=== PATIENT | female | born 1960 | race American Indian/Alaskan Native ===

== ENCOUNTER 2020-06-22 19:07 | Emergency (ER) | payer SELFPAY ==
[2020-06-22 19:48] VITALS: BP 123/79
--- NOTE | 2020-06-22 19:55 | Emergency Department Report ---
ED ENT HPI - General Stated complaint: FACE SWOLLEN Time Seen by Provider: 06/22/20 19:46 - History of Present Illness Initial comments: This is a 59-year-old female nontoxic well in appearance with no signs of distress presents to the ED with complaint of toothache. Patient denies any facial swelling. Denies following up with a dentist. Denies any fever, chills, headache, nausea, vomiting, chest pain or SOB. Denies any other complaints. Denies any allergies. MD complaint: tooth pain -: days(s) Location: tooth # Severity: mild Severity scale (0 -10): 8 Quality: aching Consistency: constant Improves with: none Worsens with: none Context- Dental: history of dental caries, poor dental care Associated Symptoms: gum swelling, toothache. denies: fever, cough, pain with swallowing, sore throat, tinnitus, hearing loss, discharge from ear, rhinorrhea - Related Data Previous Rx's Medication Instructions Recorded Last Taken Type amLODIPine [Norvasc] 5 mg PO DAILY #30 tab 05/23/16 Unknown Rx Chlorhexidine Mouthwash [Peridex] 15 ml MM BID #1 bottle 06/22/20 Unknown Rx Clindamycin [Clindamycin CAP] 300 mg PO Q8H #21 cap 06/22/20 Unknown Rx Allergies Allergy/AdvReac Type Severity Reaction Status Date / Time No Known Allergies Allergy Verified 05/22/16 22:45 ED Dental HPI - General Stated complaint: FACE SWOLLEN Time Seen by Provider: 06/22/20 19:46 - Related Data Previous Rx's Medication Instructions Recorded Last Taken Type amLODIPine [Norvasc] 5 mg PO DAILY #30 tab 05/23/16 Unknown Rx Chlorhexidine Mouthwash [Peridex] 15 ml MM BID #1 bottle 06/22/20 Unknown Rx Clindamycin [Clindamycin CAP] 300 mg PO Q8H #21 cap 06/22/20 Unknown Rx Allergies Allergy/AdvReac Type Severity Reaction Status Date / Time No Known Allergies Allergy Verified 05/22/16 22:45 ED Review of Systems ROS: Stated complaint: FACE SWOLLEN Other details as noted in HPI Comment: All other systems reviewed and negative Constitutional: denies: chills, fever Eyes: denies: eye pain, eye discharge, vision change ENT: dental pain. denies: ear pain, throat pain Respiratory: denies: cough, shortness of breath, wheezing Cardiovascular: denies: chest pain, palpitations Endocrine: no symptoms reported Gastrointestinal: denies: abdominal pain, nausea, diarrhea Genitourinary: denies: urgency, dysuria, discharge Musculoskeletal: denies: back pain, joint swelling, arthralgia Skin: denies: rash, lesions Neurological: denies: headache, weakness, paresthesias Psychiatric: denies: anxiety, depression Hematological/Lymphatic: denies: easy bleeding, easy bruising ED Past Medical Hx - Past Medical History Hx Hypertension: Yes - Social History Smoking Status: Smoker, Current Status Unknown Substance Use Type: Alcohol - Medications Home Medications: Home Medications Medication Instructions Recorded Confirmed Last Taken Type amLODIPine [Norvasc] 5 mg PO DAILY #30 tab 05/23/16 Unknown Rx Chlorhexidine Mouthwash [Peridex] 15 ml MM BID #1 bottle 06/22/20 Unknown Rx Clindamycin [Clindamycin CAP] 300 mg PO Q8H #21 cap 06/22/20 Unknown Rx ED Physical Exam - General General appearance: alert, in no apparent distress - Head Head exam: Present: atraumatic, normocephalic - Eye Eye exam: Present: normal appearance - Expanded ENT Exam Expanded Ear exam: Present: normal external inspection Mouth exam: Present: normal external inspection, tongue normal. Absent: drooling, trismus, muffled voice Teeth exam: Present: dental caries, fractured tooth #, dental tenderness #, gingival enlargement, other (no facial swelling. no abscess) Throat exam: Positive: normal inspection, other (uvula midline). Negative: tonsillar erythema, tonsillomegaly, tonsillar exudate, R peritonsillar mass, L peritonsillar mass - Neck Neck exam: Present: normal inspection, full ROM. Absent: tenderness, meningismus, lymphadenopathy - Respiratory Respiratory exam: Absent: respiratory distress - Extremities Exam Extremities exam: Present: full ROM - Back Exam Back exam: Present: full ROM - Neurological Exam Neurological exam: Present: alert, oriented X3, normal gait - Psychiatric Psychiatric exam: Present: normal affect, normal mood - Skin Skin exam: Present: warm, dry, intact, normal color. Absent: rash ED Course Vital Signs 06/22/20 19:45 Temperature 98.9 F Pulse Rate 99 H Respiratory 16 Rate Blood Pressure 123/79 O2 Sat by Pulse 98 Oximetry - Reevaluation(s) Reevaluation #1: 06/22/20 19:55 Patient is speaking in full sentences with no signs of distress noted. ED Medical Decision Making - Medical Decision Making Patient was instructed to Follow-up with a dentist doctor in 3-5 days or if symptoms worsen and continue return to emergency room as soon as possible. At time of discharge, the patient does not seem toxic or ill in appearance. No acute signs of distress noted. Patient agrees to discharge treatment plan of care. No further questions noted by the patient. Critical care attestation.: If time is entered above; I have spent that time in minutes in the direct care of this critically ill patient, excluding procedure time. ED Disposition Clinical Impression: Dental caries, Gingivitis Disposition: TO HOME OR SELFCARE Is pt being admited?: No Does the pt Need Aspirin: No Condition: Stable Instructions: Dental Caries (ED), Gingivitis (ED) Additional Instructions: Follow-up with a dentist doctor in 3-5 days or if symptoms worsen and continue return to emergency room as soon as possible. Prescriptions: Clindamycin [Clindamycin CAP] 300 mg PO Q8H #21 cap Chlorhexidine Mouthwash [Peridex] 15 ml MM BID #1 bottle Referrals: PRIMARY CAREMD [Referring] - 3-5 Days EZ ROTIZ MD [Staff Physician] - 3-5 Days [facility] [Outside] - 3-5 Days
== END 2020-06-22 20:52 | disposition home or self-care (01) ==
LOC: ED 19:07
DX: K02.9 Dental caries, unspecified (principal); K05.10 Chronic gingivitis, plaque induced; Z79.899 Other long term (current) drug therapy; I10 Essential (primary) hypertension
CPT/HCPCS: 99282

== ENCOUNTER 2021-06-09 03:02 | Inpatient (IN) | payer OTHER ==
[2021-06-09] MEDS ORDERED: NORepinephrine/NS 4 MG-250 ML 4 MG/250 ML BAG IV ONE (03:09)
[2021-06-09] MEDS ORDERED: DEXTROSE 50% IN WATER (25GM) 50 ML SYRINGE IV ONE ×3 (03:15→05:26)
[2021-06-09] MEDS ORDERED: SODIUM CHLORIDE 0.9% 1000 ML 1,000 ML IV ONE (03:25)
--- NOTE | 2021-06-09 03:25 | Emergency Department Report ---
ED CPR HPI - General Chief Complaint: Cardiac Arrest/CPR Stated Complaint: CARDIC ARREST Time Seen by Provider: 06/09/21 03:02 Source: EMS Mode of arrival: Stretcher Limitations: Altered Mental Status, Physical Limitation - History of Present Illness Initial Comments: Patient is a 60-year-old female who presents emergency room for cardiac arrest. Patient brought in by EMS. Report received from EMS. Patient found at home, unresponsive and no pulse and no respirations. CPR was initiated by EMS. EMS providing oxygen via BVM. Patient received 1 round of calcium chloride epi and 1 bicarb. EMS did not check the blood sugar. EMS states that the patient's family reported that she was complaining of abdominal pain. Patient has received the Covid vaccine 3 weeks ago. Complaint: found unresponsive Place: home Bystander CPR Performed: No AED Applied by Bystander/Tele Marketing Executive: No Shock Advised: No Initial Findings in the Field: unresponsive, no respirations, no pulse ROSC in the Field: No Associated Injuries: No Associated Symptoms: abdominal pain Treatments Prior to Arrival: BMV, chest compressions, epinephrine mgs #, sodium bicarbonate, calcium - Related Data Home Medications Medication Instructions Recorded Confirmed Last Taken No Known Home Medications [No 06/09/21 06/09/21 Unknown Reported Home Medications] Allergies Allergy/AdvReac Type Severity Reaction Status Date / Time No Known Allergies Allergy Verified 05/22/16 22:45 ED Review of Systems ROS: Stated complaint: CARDIC ARREST Other details as noted in HPI Comment: Unobtainable due to pts medical conditions ED Past Medical Hx - Past Medical History Previous Medical History?: Yes Hx Hypertension: Yes - Surgical History Past Surgical History?: No - Family History Family history: no significant - Social History Smoking Status: Smoker, Current Status Unknown Substance Use Type: Alcohol - Medications Home Medications: Home Medications Medication Instructions Recorded Confirmed Last Taken Type No Known Home Medications [No 06/09/21 06/09/21 Unknown History Reported Home Medications] ED Physical Exam - General Limitations: Altered Mental Status, Physical Limitation General appearance: obtunded - Head Head exam: Present: atraumatic, normocephalic - Eye Eye exam: Present: other (Pupils fixed and dilated) - ENT ENT exam: Present: mucous membranes dry - Neck Neck exam: Present: normal inspection - Cardiovascular Cardiovascular Exam: Present: regular rate, normal rhythm. Absent: systolic murmur, diastolic murmur, rubs, gallop - GI/Abdominal GI/Abdominal exam: Present: soft, normal bowel sounds - Extremities Exam Extremities exam: Present: normal inspection - Back Exam Back exam: Present: normal inspection - Neurological Exam Neurological exam: Present: alert, oriented X3 - Psychiatric Psychiatric exam: Present: normal affect, normal mood - Skin Skin exam: Present: warm, dry, intact, normal color. Absent: rash ED Course Vital Signs 06/09/21 06/09/21 06/09/21 03:32 05:56 06:20 Temperature 90.8 F L 88.9 F L Pulse Rate 99 H 90 92 H Respiratory 20 23 Rate Blood Pressure 82/53 96/30 92/37 Blood Pressure 140/103 [Right] O2 Sat by Pulse 100 100 100 Oximetry 06/09/21 06/09/21 06/09/21 07:10 07:57 09:00 Temperature Pulse Rate 93 H Respiratory 22 22 Rate Blood Pressure 111/67 Blood Pressure [Right] O2 Sat by Pulse 100 100 Oximetry 06/09/21 06/09/21 06/09/21 09:11 09:39 09:51 Temperature 89.7 F L Pulse Rate 97 H 94 H Respiratory 22 23 22 Rate Blood Pressure Blood Pressure 90/52 98/52 [Right] O2 Sat by Pulse 100 100 Oximetry 06/09/21 06/09/21 06/09/21 10:00 10:01 10:15 Temperature Pulse Rate 94 H 96 H Respiratory 22 22 25 H Rate Blood Pressure 99/51 Blood Pressure [Right] O2 Sat by Pulse 100 100 Oximetry 06/09/21 06/09/21 06/09/21 10:31 10:45 11:01 Temperature Pulse Rate 97 H 98 H 99 H Respiratory 24 27 H 28 H Rate Blood Pressure 107/56 116/62 110/67 Blood Pressure [Right] O2 Sat by Pulse 100 100 100 Oximetry 06/09/21 06/09/21 06/09/21 11:15 11:31 11:40 Temperature Pulse Rate 99 H 99 H Respiratory 25 H 28 H 22 Rate Blood Pressure 104/66 112/73 Blood Pressure [Right] O2 Sat by Pulse 100 100 Oximetry 06/09/21 06/09/21 06/09/21 11:41 11:51 12:00 Temperature Pulse Rate 100 H 98 H 89 Respiratory 30 H 30 H Rate Blood Pressure 105/66 97/60 Blood Pressure [Right] O2 Sat by Pulse 100 100 100 Oximetry 06/09/21 06/09/21 06/09/21 12:01 12:11 12:20 Temperature Pulse Rate 99 H 99 H 99 H Respiratory 29 H 31 H 31 H Rate Blood Pressure 97/60 105/66 104/64 Blood Pressure [Right] O2 Sat by Pulse 100 100 100 Oximetry 06/09/21 06/09/21 06/09/21 12:31 12:41 13:01 Temperature Pulse Rate 98 H 98 H 90 Respiratory 28 H 26 H 26 H Rate Blood Pressure 132/86 104/64 140/117 Blood Pressure [Right] O2 Sat by Pulse 100 100 100 Oximetry 06/09/21 06/09/21 06/09/21 13:15 13:21 13:31 Temperature Pulse Rate 87 87 88 Respiratory 29 H 26 H 18 Rate Blood Pressure 71/45 83/54 83/54 Blood Pressure [Right] O2 Sat by Pulse 100 100 Oximetry 06/09/21 06/09/21 06/09/21 13:41 13:51 14:01 Temperature Pulse Rate 89 91 H 93 H Respiratory 19 31 H 27 H Rate Blood Pressure 98/63 98/63 165/90 Blood Pressure [Right] O2 Sat by Pulse 100 100 100 Oximetry 06/09/21 06/09/21 06/09/21 14:11 14:21 14:31 Temperature Pulse Rate 95 H 96 H 96 H Respiratory 25 H 22 22 Rate Blood Pressure 186/109 168/106 168/106 Blood Pressure [Right] O2 Sat by Pulse 100 100 100 Oximetry 06/09/21 06/09/21 06/09/21 14:41 14:51 15:01 Temperature Pulse Rate 97 H 98 H 98 H Respiratory 19 26 H 24 Rate Blood Pressure 165/90 132/92 132/92 Blood Pressure [Right] O2 Sat by Pulse 100 100 100 Oximetry 06/09/21 06/09/21 06/09/21 15:11 15:21 15:31 Temperature Pulse Rate 98 H 98 H 98 H Respiratory 18 12 18 Rate Blood Pressure 117/94 137/98 137/98 Blood Pressure [Right] O2 Sat by Pulse 100 100 100 Oximetry 06/09/21 06/09/21 06/09/21 15:35 15:41 15:51 Temperature 89.7 F L Pulse Rate 98 H 98 H 98 H Respiratory 22 20 14 Rate Blood Pressure 131/89 145/92 138/84 Blood Pressure [Right] O2 Sat by Pulse 100 100 100 Oximetry 06/09/21 06/09/21 06/09/21 16:01 16:11 16:21 Temperature Pulse Rate 97 H 99 H 97 H Respiratory 13 23 16 Rate Blood Pressure 138/84 126/88 121/83 Blood Pressure [Right] O2 Sat by Pulse 100 100 100 Oximetry 06/09/21 06/09/21 06/09/21 16:31 16:32 16:41 Temperature Pulse Rate 97 H 97 H 97 H Respiratory 22 22 Rate Blood Pressure 121/83 121/83 111/81 Blood Pressure [Right] O2 Sat by Pulse 100 100 100 Oximetry 06/09/21 06/09/21 06/09/21 16:51 17:01 17:11 Temperature Pulse Rate 98 H 98 H 96 H Respiratory 10 L 14 9 L Rate Blood Pressure 115/79 115/79 119/91 Blood Pressure [Right] O2 Sat by Pulse 100 100 Oximetry 06/09/21 06/09/21 06/09/21 17:31 17:45 18:01 Temperature Pulse Rate 95 H 94 H 94 H Respiratory 22 19 12 Rate Blood Pressure 124/88 120/83 115/85 Blood Pressure [Right] O2 Sat by Pulse 100 100 100 Oximetry 06/09/21 06/09/21 06/09/21 18:15 18:31 18:45 Temperature Pulse Rate 95 H 91 H 90 Respiratory 13 21 21 Rate Blood Pressure 125/89 121/80 121/83 Blood Pressure [Right] O2 Sat by Pulse 100 100 100 Oximetry 06/09/21 06/09/21 06/09/21 19:01 19:15 19:16 Temperature Pulse Rate 91 H 90 91 H Respiratory 22 23 Rate Blood Pressure 130/94 135/89 135/89 Blood Pressure [Right] O2 Sat by Pulse 100 100 100 Oximetry 06/09/21 06/09/21 06/09/21 19:31 19:45 20:01 Temperature Pulse Rate 91 H 91 H 89 Respiratory 14 18 21 Rate Blood Pressure 133/90 144/96 131/95 Blood Pressure [Right] O2 Sat by Pulse 100 100 100 Oximetry 06/09/21 06/09/21 06/09/21 20:15 20:31 20:45 Temperature Pulse Rate 87 87 87 Respiratory 22 22 22 Rate Blood Pressure 123/93 123/85 125/88 Blood Pressure [Right] O2 Sat by Pulse 100 100 100 Oximetry 06/09/21 06/09/21 06/09/21 21:01 21:03 21:15 Temperature Pulse Rate 88 88 90 Respiratory 22 22 12 Rate Blood Pressure 132/89 132/89 137/87 Blood Pressure [Right] O2 Sat by Pulse 100 100 100 Oximetry 06/09/21 06/09/21 06/09/21 21:31 21:45 22:00 Temperature Pulse Rate 92 H 85 Respiratory 12 20 Rate Blood Pressure 127/92 183/142 Blood Pressure [Right] O2 Sat by Pulse 100 100 100 Oximetry 06/09/21 06/09/21 06/09/21 22:01 22:15 22:31 Temperature Pulse Rate 86 89 91 H Respiratory 22 19 22 Rate Blood Pressure 173/115 173/115 151/109 Blood Pressure [Right] O2 Sat by Pulse 100 100 100 Oximetry 06/09/21 06/09/21 06/09/21 22:45 23:01 23:15 Temperature Pulse Rate 91 H 92 H 91 H Respiratory 22 22 22 Rate Blood Pressure 151/109 140/100 140/100 Blood Pressure [Right] O2 Sat by Pulse 100 100 100 Oximetry 06/09/21 06/09/21 06/09/21 23:31 23:44 23:45 Temperature Pulse Rate 90 91 H 92 H Respiratory 22 22 Rate Blood Pressure 140/100 107/74 140/100 Blood Pressure [Right] O2 Sat by Pulse 100 100 100 Oximetry 06/10/21 06/10/21 06/10/21 00:00 00:01 00:15 Temperature Pulse Rate 91 H 91 H Respiratory 22 22 22 Rate Blood Pressure 100/70 100/70 Blood Pressure [Right] O2 Sat by Pulse 100 100 100 Oximetry 06/10/21 06/10/21 06/10/21 00:31 00:45 01:01 Temperature Pulse Rate 91 H 89 82 Respiratory 22 22 22 Rate Blood Pressure 96/69 96/69 101/78 Blood Pressure [Right] O2 Sat by Pulse 100 100 100 Oximetry 06/10/21 06/10/21 06/10/21 01:15 01:31 01:41 Temperature Pulse Rate 84 83 97 H Respiratory 20 19 Rate Blood Pressure 101/78 90/47 103/69 Blood Pressure [Right] O2 Sat by Pulse 100 100 100 Oximetry 06/10/21 06/10/21 06/10/21 01:45 02:00 02:01 Temperature Pulse Rate 85 89 Respiratory 13 22 12 Rate Blood Pressure 90/47 101/78 Blood Pressure [Right] O2 Sat by Pulse 100 100 100 Oximetry 06/10/21 06/10/21 06/10/21 02:16 02:31 02:45 Temperature Pulse Rate 91 H 83 80 Respiratory 16 20 20 Rate Blood Pressure 155/105 158/108 137/85 Blood Pressure [Right] O2 Sat by Pulse 100 100 100 Oximetry 06/10/21 06/10/21 06/10/21 03:01 03:15 03:31 Temperature Pulse Rate 79 81 85 Respiratory 22 22 22 Rate Blood Pressure 155/105 132/85 123/83 Blood Pressure [Right] O2 Sat by Pulse 100 100 100 Oximetry 06/10/21 06/10/21 06/10/21 03:32 03:45 04:00 Temperature Pulse Rate 81 83 Respiratory 22 22 Rate Blood Pressure 132/85 133/92 Blood Pressure [Right] O2 Sat by Pulse 100 100 100 Oximetry 06/10/21 06/10/21 06/10/21 04:01 04:15 04:31 Temperature Pulse Rate 84 86 85 Respiratory 22 22 22 Rate Blood Pressure 132/85 138/95 148/94 Blood Pressure [Right] O2 Sat by Pulse 100 100 100 Oximetry 06/10/21 06/10/21 06/10/21 04:45 05:00 05:15 Temperature Pulse Rate 89 88 94 H Respiratory 22 23 22 Rate Blood Pressure 139/97 140/92 126/87 Blood Pressure [Right] O2 Sat by Pulse 100 100 100 Oximetry 06/10/21 06/10/21 06/10/21 05:31 05:45 06:01 Temperature Pulse Rate 98 H 102 H 104 H Respiratory 22 22 22 Rate Blood Pressure 125/84 118/81 128/82 Blood Pressure [Right] O2 Sat by Pulse 100 100 100 Oximetry 06/10/21 06/10/21 06/10/21 06:15 06:31 06:45 Temperature Pulse Rate 106 H 107 H 109 H Respiratory 22 22 22 Rate Blood Pressure 121/83 127/92 130/83 Blood Pressure [Right] O2 Sat by Pulse 100 100 100 Oximetry 06/10/21 06/10/21 06/10/21 07:01 07:15 07:31 Temperature 99.6 F Pulse Rate 110 H 111 H 114 H Respiratory 22 22 22 Rate Blood Pressure 126/87 136/88 136/84 Blood Pressure [Right] O2 Sat by Pulse 100 100 100 Oximetry 06/10/21 06/10/21 06/10/21 07:45 08:01 08:15 Temperature Pulse Rate 116 H 116 H 118 H Respiratory 22 22 22 Rate Blood Pressure 130/86 122/86 123/84 Blood Pressure [Right] O2 Sat by Pulse 100 100 100 Oximetry 06/10/21 06/10/21 06/10/21 08:31 08:45 09:01 Temperature Pulse Rate 118 H 118 H 117 H Respiratory 22 22 22 Rate Blood Pressure 128/84 126/85 128/90 Blood Pressure [Right] O2 Sat by Pulse 100 100 100 Oximetry 06/10/21 06/10/21 06/10/21 09:15 09:20 09:25 Temperature 102.2 F H Pulse Rate 119 H 91 H Respiratory 22 Rate Blood Pressure 120/84 118/82 Blood Pressure [Right] O2 Sat by Pulse 100 99 Oximetry 06/10/21 06/10/21 06/10/21 09:31 09:45 09:49 Temperature Pulse Rate 119 H 115 H 111 H Respiratory 23 22 22 Rate Blood Pressure 106/74 115/74 115/74 Blood Pressure [Right] O2 Sat by Pulse 100 100 100 Oximetry 06/10/21 06/10/21 06/10/21 10:01 10:15 10:31 Temperature 96.7 F L Pulse Rate 107 H 118 H 107 H Respiratory 22 24 22 Rate Blood Pressure 115/78 134/98 88/57 Blood Pressure [Right] O2 Sat by Pulse 100 100 100 Oximetry 06/10/21 06/10/21 06/10/21 10:45 11:01 11:15 Temperature Pulse Rate 102 H 95 H 93 H Respiratory 22 22 24 Rate Blood Pressure 106/69 103/76 118/82 Blood Pressure [Right] O2 Sat by Pulse 100 100 100 Oximetry 06/10/21 06/10/21 06/10/21 11:30 11:45 12:00 Temperature Pulse Rate 88 87 81 Respiratory 22 22 19 Rate Blood Pressure 119/82 103/76 106/78 Blood Pressure [Right] O2 Sat by Pulse 100 100 100 Oximetry 06/10/21 06/10/2106/10/21 12:15 12:30 12:45 Temperature Pulse Rate 78 78 80 Respiratory 22 22 22 Rate Blood Pressure 101/72 100/70 102/73 Blood Pressure [Right] O2 Sat by Pulse 100 99 100 Oximetry 06/10/21 06/10/21 06/10/21 13:00 13:15 13:30 Temperature Pulse Rate 83 87 90 Respiratory 21 22 22 Rate Blood Pressure 103/75 113/77 110/77 Blood Pressure [Right] O2 Sat by Pulse 99 100 Oximetry 06/10/21 06/10/21 06/10/21 13:45 14:00 14:15 Temperature Pulse Rate 78 89 85 Respiratory 36 H 30 H 20 Rate Blood Pressure 107/76 104/73 115/76 Blood Pressure [Right] O2 Sat by Pulse 99 100 Oximetry 06/10/21 06/10/21 06/10/21 14:30 14:45 14:50 Temperature Pulse Rate 80 77 67 Respiratory 15 9 L Rate Blood Pressure 111/77 119/76 107/75 Blood Pressure [Right] O2 Sat by Pulse 100 100 Oximetry 06/10/21 06/10/21 06/10/21 15:00 15:15 15:31 Temperature Pulse Rate 77 79 78 Respiratory 23 22 22 Rate Blood Pressure 102/68 109/74 106/75 Blood Pressure [Right] O2 Sat by Pulse 99 100 100 Oximetry 06/10/21 06/10/21 06/10/21 15:33 15:45 16:00 Temperature 90.8 F L Pulse Rate 81 80 Respiratory 22 22 Rate Blood Pressure 107/75 102/71 Blood Pressure [Right] O2 Sat by Pulse 100 Oximetry 06/10/21 06/10/21 06/10/21 16:15 16:30 16:45 Temperature Pulse Rate 79 74 70 Respiratory 22 22 21 Rate Blood Pressure 105/73 93/69 101/69 Blood Pressure [Right] O2 Sat by Pulse 100 100 Oximetry 06/10/21 06/10/21 06/10/21 17:00 17:15 17:30 Temperature Pulse Rate 68 69 73 Respiratory 22 22 22 Rate Blood Pressure 92/65 87/63 92/68 Blood Pressure [Right] O2 Sat by Pulse 100 100 98 Oximetry 06/10/21 06/10/21 06/10/21 17:45 18:00 18:15 Temperature Pulse Rate 77 78 73 Respiratory 22 22 22 Rate Blood Pressure 94/67 105/78 98/70 Blood Pressure [Right] O2 Sat by Pulse 100 100 Oximetry 06/10/21 06/10/21 06/10/21 18:30 18:45 18:50 Temperature Pulse Rate 69 69 67 Respiratory 22 22 Rate Blood Pressure 97/69 100/76 107/75 Blood Pressure [Right] O2 Sat by Pulse 100 100 99 Oximetry 06/10/21 06/10/21 06/10/21 19:00 19:14 19:15 Temperature 90.3 F L Pulse Rate 68 70 Respiratory 22 22 Rate Blood Pressure 95/71 99/71 Blood Pressure [Right] O2 Sat by Pulse 100 100 Oximetry 06/10/21 06/10/21 06/10/21 19:30 19:45 19:46 Temperature Pulse Rate 74 78 76 Respiratory 19 22 Rate Blood Pressure 108/75 110/79 110/79 Blood Pressure [Right] O2 Sat by Pulse 98 100 100 Oximetry 06/10/21 06/10/21 06/10/21 20:00 20:15 20:30 Temperature Pulse Rate 78 74 71 Respiratory 20 22 22 Rate Blood Pressure 110/80 100/76 110/76 Blood Pressure [Right] O2 Sat by Pulse 99 100 100 Oximetry 06/10/21 06/10/21 06/10/21 20:45 21:00 21:15 Temperature Pulse Rate 67 68 68 Respiratory 22 22 22 Rate Blood Pressure 107/75 99/72 109/77 Blood Pressure [Right] O2 Sat by Pulse 100 100 100 Oximetry 06/10/21 06/10/21 06/10/21 21:30 21:40 21:50 Temperature Pulse Rate 67 67 68 Respiratory 19 19 20 Rate Blood Pressure 102/71 109/76 99/73 Blood Pressure [Right] O2 Sat by Pulse 100 100 Oximetry 06/10/21 06/10/21 06/10/21 22:00 22:10 22:20 Temperature Pulse Rate 68 69 69 Respiratory 23 22 21 Rate Blood Pressure 105/76 106/76 107/79 Blood Pressure [Right] O2 Sat by Pulse 100 100 Oximetry 06/10/21 06/10/21 06/10/21 22:30 22:40 22:50 Temperature Pulse Rate 69 70 70 Respiratory 22 22 21 Rate Blood Pressure 105/78 109/79 112/76 Blood Pressure [Right] O2 Sat by Pulse 100 Oximetry 06/10/21 06/10/21 06/10/21 23:00 23:10 23:20 Temperature Pulse Rate 69 70 70 Respiratory 22 21 21 Rate Blood Pressure 105/75 107/77 103/74 Blood Pressure [Right] O2 Sat by Pulse 100 100 100 Oximetry 06/10/21 06/10/21 06/10/21 23:23 23:30 23:33 Temperature 92 F L 92 F L Pulse Rate 71 72 Respiratory 22 22 Rate Blood Pressure 112/79 104/75 Blood Pressure [Right] O2 Sat by Pulse 100 Oximetry 06/10/21 06/10/21 06/11/21 23:45 23:57 00:00 Temperature 92 F L Pulse Rate 71 72 73 Respiratory 22 22 22 Rate Blood Pressure 109/77 104/75 108/80 Blood Pressure [Right] O2 Sat by Pulse 100 Oximetry 06/11/21 06/11/21 06/11/21 00:10 00:20 00:30 Temperature Pulse Rate 73 72 72 Respiratory 22 22 22 Rate Blood Pressure 113/78 109/77 110/76 Blood Pressure [Right] O2 Sat by Pulse 100 100 100 Oximetry 06/11/21 06/11/21 06/11/21 00:40 00:47 00:50 Temperature Pulse Rate 72 71 72 Respiratory 22 22 Rate Blood Pressure 111/76 111/76 111/76 Blood Pressure [Right] O2 Sat by Pulse 100 100 100 Oximetry 06/11/21 06/11/21 06/11/21 01:00 01:10 01:20 Temperature Pulse Rate 72 72 72 Respiratory 22 22 22 Rate Blood Pressure 113/78 113/78 115/76 Blood Pressure [Right] O2 Sat by Pulse 100 Oximetry 06/11/21 06/11/21 06/11/21 01:30 01:40 01:50 Temperature Pulse Rate 71 71 71 Respiratory 22 22 22 Rate Blood Pressure 107/77 110/79 112/79 Blood Pressure [Right] O2 Sat by Pulse 100 100 Oximetry 06/11/21 06/11/21 06/11/21 02:00 02:10 02:15 Temperature 92.9 F L Pulse Rate 72 71 71 Respiratory 22 22 22 Rate Blood Pressure 114/82 110/78 110/78 Blood Pressure [Right] O2 Sat by Pulse 100 100 Oximetry 06/11/21 06/11/21 06/11/21 02:30 02:45 03:00 Temperature Pulse Rate 73 73 72 Respiratory 22 22 22 Rate Blood Pressure 111/79 126/87 109/78 Blood Pressure [Right] O2 Sat by Pulse 100 Oximetry 06/11/21 06/11/21 06/11/21 03:16 03:30 03:46 Temperature Pulse Rate 73 73 73 Respiratory 12 22 22 Rate Blood Pressure 111/79 117/81 111/80 Blood Pressure [Right] O2 Sat by Pulse 100 100 Oximetry 06/11/21 06/11/21 06/11/21 04:00 04:16 04:30 Temperature Pulse Rate 73 78 75 Respiratory 22 20 7 L Rate Blood Pressure 113/81 113/81 118/83 Blood Pressure [Right] O2 Sat by Pulse 100 100 100 Oximetry 06/11/21 06/11/21 06/11/21 04:36 04:46 05:00 Temperature 93.5 F L Pulse Rate 77 75 Respiratory 22 21 Rate Blood Pressure 125/87 114/80 Blood Pressure [Right] O2 Sat by Pulse 100 100 Oximetry 06/11/21 06/11/21 06/11/21 05:16 05:30 05:46 Temperature Pulse Rate 80 74 75 Respiratory 22 21 22 Rate Blood Pressure 123/82 107/79 122/85 Blood Pressure [Right] O2 Sat by Pulse 100 97 100 Oximetry 06/11/21 06/11/21 06/11/21 06:00 06:16 06:20 Temperature 93.7 F L Pulse Rate 75 73 Respiratory 22 22 Rate Blood Pressure 122/79 117/76 Blood Pressure [Right] O2 Sat by Pulse 100 100 Oximetry 06/11/21 06/11/21 06/11/21 06:30 06:46 06:54 Temperature 93.7 F L Pulse Rate 75 74 Respiratory 18 18 Rate Blood Pressure 114/81 123/81 Blood Pressure [Right] O2 Sat by Pulse 100 100 Oximetry 06/11/21 06/11/21 06/11/21 07:00 07:16 07:30 Temperature Pulse Rate 75 75 76 Respiratory 17 14 15 Rate Blood Pressure 120/81 127/81 128/83 Blood Pressure [Right] O2 Sat by Pulse 100 100 Oximetry 06/11/21 06/11/21 06/11/21 07:45 08:00 08:16 Temperature Pulse Rate 75 75 75 Respiratory 15 17 18 Rate Blood Pressure 128/83 126/81 131/87 Blood Pressure [Right] O2 Sat by Pulse 100 100 Oximetry 06/11/21 06/11/21 06/11/21 08:23 08:30 08:46 Temperature Pulse Rate 79 79 78 Respiratory 17 14 Rate Blood Pressure 134/90 138/89 133/94 Blood Pressure [Right] O2 Sat by Pulse 100 100 100 Oximetry 06/11/21 06/11/21 06/11/21 08:48 09:00 09:16 Temperature Pulse Rate 76 75 Respiratory 19 16 Rate Blood Pressure 125/82 132/83 Blood Pressure [Right] O2 Sat by Pulse 100 100 100 Oximetry 06/11/21 06/11/21 06/11/21 09:30 09:46 10:00 Temperature Pulse Rate 77 75 76 Respiratory 15 17 17 Rate Blood Pressure 125/84 127/83 128/83 Blood Pressure [Right] O2 Sat by Pulse 100 100 100 Oximetry 06/11/21 06/11/21 06/11/21 10:16 10:30 10:46 Temperature Pulse Rate 77 77 78 Respiratory 18 18 18 Rate Blood Pressure 131/90 135/87 136/87 Blood Pressure [Right] O2 Sat by Pulse 99 94 100 Oximetry 06/11/21 06/11/21 06/11/21 11:00 11:16 11:30 Temperature Pulse Rate 78 80 80 Respiratory 18 18 18 Rate Blood Pressure 132/81 125/85 128/86 Blood Pressure [Right] O2 Sat by Pulse 100 100 100 Oximetry 06/11/21 06/11/21 06/11/21 11:46 12:00 12:16 Temperature Pulse Rate 80 78 80 Respiratory 18 18 18 Rate Blood Pressure 126/88 124/81 132/88 Blood Pressure [Right] O2 Sat by Pulse 100 100 100 Oximetry 06/11/21 06/11/21 06/11/21 12:20 12:30 12:46 Temperature Pulse Rate 87 80 80 Respiratory 17 18 Rate Blood Pressure 132/88 128/84 129/82 Blood Pressure [Right] O2 Sat by Pulse 100 98 100 Oximetry 06/11/21 06/11/21 06/11/21 13:00 13:16 13:30 Temperature Pulse Rate 81 81 80 Respiratory 17 18 18 Rate Blood Pressure 130/87 126/87 126/84 Blood Pressure [Right] O2 Sat by Pulse 100 100 Oximetry 06/11/21 06/11/21 06/11/21 13:46 13:56 14:00 Temperature 95 F L Pulse Rate 80 80 Respiratory 18 18 Rate Blood Pressure 122/87 125/85 Blood Pressure [Right] O2 Sat by Pulse 100 Oximetry 06/11/21 06/11/21 06/11/21 14:16 14:30 14:46 Temperature Pulse Rate 80 86 79 Respiratory 18 18 14 Rate Blood Pressure 126/88 154/99 130/86 Blood Pressure [Right] O2 Sat by Pulse 100 100 100 Oximetry 06/11/21 06/11/21 06/11/21 15:00 15:16 15:30 Temperature Pulse Rate 80 79 77 Respiratory 17 17 19 Rate Blood Pressure 131/82 132/87 129/83 Blood Pressure [Right] O2 Sat by Pulse 100 100 100 Oximetry 06/11/21 06/11/21 06/11/21 15:46 16:00 16:21 Temperature Pulse Rate 78 79 Respiratory 18 22 Rate Blood Pressure 128/93 133/91 133/91 Blood Pressure [Right] O2 Sat by Pulse 100 100 100 Oximetry 06/11/21 06/11/21 06/11/21 16:26 16:30 16:46 Temperature Pulse Rate 94 H 92 H 80 Respiratory 24 18 Rate Blood Pressure 157/101 131/90 Blood Pressure [Right] O2 Sat by Pulse 100 100 100 Oximetry 06/11/21 06/11/21 06/11/21 17:00 17:16 17:30 Temperature Pulse Rate 77 100 H 85 Respiratory 18 19 18 Rate Blood Pressure 123/85 131/86 133/90 Blood Pressure [Right] O2 Sat by Pulse 100 100 100 Oximetry 06/11/21 06/11/21 06/11/21 17:46 18:00 18:16 Temperature Pulse Rate 82 82 80 Respiratory 18 17 16 Rate Blood Pressure 125/88 134/91 133/88 Blood Pressure [Right] O2 Sat by Pulse 100 100 100 Oximetry 06/11/21 06/11/21 06/11/21 18:30 18:46 19:00 Temperature 94.8 F L Pulse Rate 77 93 H 79 Respiratory 7 L 19 18 Rate Blood Pressure 128/86 122/85 120/78 Blood Pressure [Right] O2 Sat by Pulse 100 100 100 Oximetry 06/11/21 06/11/21 06/11/21 19:16 19:19 19:30 Temperature Pulse Rate 79 78 104 H Respiratory 14 15 Rate Blood Pressure 115/77 120/78 110/82 Blood Pressure [Right] O2 Sat by Pulse 100 100 Oximetry 06/11/21 06/11/21 06/11/21 19:46 20:00 20:16 Temperature Pulse Rate 77 76 77 Respiratory 18 18 18 Rate Blood Pressure 116/74 115/77 124/79 Blood Pressure [Right] O2 Sat by Pulse 100 100 100 Oximetry 06/11/21 06/11/21 06/11/21 20:30 20:46 21:00 Temperature Pulse Rate 77 77 77 Respiratory 18 18 18 Rate Blood Pressure 118/77 120/73 119/78 Blood Pressure [Right] O2 Sat by Pulse 100 100 100 Oximetry 06/11/21 06/11/21 06/11/21 21:16 21:30 21:46 Temperature Pulse Rate 77 77 77 Respiratory 18 18 18 Rate Blood Pressure 118/77 116/76 121/77 Blood Pressure [Right] O2 Sat by Pulse 100 100 100 Oximetry 06/11/21 06/11/21 06/11/21 22:00 22:16 22:30 Temperature Pulse Rate 77 79 89 Respiratory 18 18 11 L Rate Blood Pressure 119/76 119/77 159/107 Blood Pressure [Right] O2 Sat by Pulse 98 100 100 Oximetry 06/11/21 06/11/21 06/11/21 22:46 23:00 23:14 Temperature Pulse Rate 79 79 77 Respiratory 18 18 18 Rate Blood Pressure 134/91 121/85 121/81 Blood Pressure [Right] O2 Sat by Pulse 100 100 100 Oximetry 06/11/21 06/11/21 06/11/21 23:16 23:19 23:30 Temperature Pulse Rate 78 78 78 Respiratory 18 18 Rate Blood Pressure 121/81 121/81 116/81 Blood Pressure [Right] O2 Sat by Pulse 100 100 99 Oximetry 06/11/21 06/12/21 06/12/21 23:46 00:00 00:16 Temperature Pulse Rate 78 78 79 Respiratory 18 18 18 Rate Blood Pressure 120/81 125/83 129/87 Blood Pressure [Right] O2 Sat by Pulse 100 100 100 Oximetry 06/12/21 06/12/21 06/12/21 00:30 00:46 01:00 Temperature Pulse Rate 78 78 78 Respiratory 18 18 18 Rate Blood Pressure 118/81 124/83 118/82 Blood Pressure [Right] O2 Sat by Pulse 100 100 100 Oximetry 06/12/21 06/12/21 06/12/21 01:16 01:30 01:46 Temperature Pulse Rate 80 79 81 Respiratory 18 18 18 Rate Blood Pressure 118/81 123/83 124/84 Blood Pressure [Right] O2 Sat by Pulse 100 100 100 Oximetry 06/12/21 06/12/21 06/12/21 02:00 02:16 02:30 Temperature Pulse Rate 81 81 82 Respiratory 18 18 18 Rate Blood Pressure 125/81 119/84 126/84 Blood Pressure [Right] O2 Sat by Pulse 100 100 100 Oximetry 06/12/21 06/12/21 06/12/21 02:46 03:00 03:16 Temperature Pulse Rate 83 82 82 Respiratory 18 18 18 Rate Blood Pressure 129/85 121/84 119/86 Blood Pressure [Right] O2 Sat by Pulse 100 100 100 Oximetry 06/12/21 06/12/21 06/12/21 03:30 03:46 04:00 Temperature Pulse Rate 81 84 96 H Respiratory 18 18 16 Rate Blood Pressure 119/82 128/82 157/104 Blood Pressure [Right] O2 Sat by Pulse 100 100 100 Oximetry 06/12/21 06/12/21 06/12/21 04:16 04:30 04:46 Temperature Pulse Rate 85 84 84 Respiratory 18 16 18 Rate Blood Pressure 129/84 120/81 126/84 Blood Pressure [Right] O2 Sat by Pulse 100 100 Oximetry 06/12/21 06/12/21 06/12/21 04:55 05:00 05:16 Temperature Pulse Rate 83 82 83 Respiratory 18 18 Rate Blood Pressure 126/84 129/86 136/85 Blood Pressure [Right] O2 Sat by Pulse 100 100 100 Oximetry 06/12/21 06/12/21 06/12/21 05:30 05:46 06:00 Temperature Pulse Rate 83 83 83 Respiratory 18 18 Rate Blood Pressure 128/85 130/87 127/84 Blood Pressure [Right] O2 Sat by Pulse 97 100 100 Oximetry 06/12/21 06/12/21 06/12/21 06:16 06:30 06:46 Temperature Pulse Rate 84 81 82 Respiratory 18 Rate Blood Pressure 132/88 118/81 126/84 Blood Pressure [Right] O2 Sat by Pulse 100 100 Oximetry 06/12/21 06/12/21 06/12/21 07:00 07:16 07:30 Temperature Pulse Rate 90 86 99 H Respiratory 7 L 18 22 Rate Blood Pressure 137/94 120/81 150/98 Blood Pressure [Right] O2 Sat by Pulse 100 100 100 Oximetry 06/12/21 06/12/21 06/12/21 07:46 08:00 08:16 Temperature Pulse Rate 85 85 85 Respiratory 18 17 18 Rate Blood Pressure 120/85 116/80 117/80 Blood Pressure [Right] O2 Sat by Pulse 100 100 100 Oximetry 06/12/21 06/12/21 06/12/21 08:30 08:44 08:46 Temperature Pulse Rate 84 90 88 Respiratory 18 20 Rate Blood Pressure 120/79 140/95 124/81 Blood Pressure [Right] O2 Sat by Pulse 100 100 Oximetry 06/12/21 06/12/21 06/12/21 09:00 09:16 09:30 Temperature Pulse Rate 86 85 84 Respiratory 18 18 18 Rate Blood Pressure 118/81 121/80 117/77 Blood Pressure [Right] O2 Sat by Pulse 99 100 Oximetry 06/12/21 06/12/21 06/12/21 09:46 10:00 10:16 Temperature Pulse Rate 83 83 87 Respiratory 18 18 18 Rate Blood Pressure 116/78 116/80 122/82 Blood Pressure [Right] O2 Sat by Pulse 100 100 100 Oximetry 06/12/21 06/12/21 06/12/21 10:30 11:30 11:42 Temperature Pulse Rate 85 83 84 Respiratory 18 18 Rate Blood Pressure 118/81 111/79 120/80 Blood Pressure [Right] O2 Sat by Pulse 98 100 Oximetry 06/12/21 06/12/21 06/12/21 11:46 12:00 12:16 Temperature Pulse Rate 84 84 84 Respiratory 18 18 18 Rate Blood Pressure 120/80 116/81 112/82 Blood Pressure [Right] O2 Sat by Pulse 100 100 Oximetry 06/12/21 06/12/21 06/12/21 12:30 12:46 12:59 Temperature Pulse Rate 83 84 85 Respiratory 18 18 16 Rate Blood Pressure 113/81 118/81 Blood Pressure 121/84 [Right] O2 Sat by Pulse 100 100 Oximetry 06/12/21 06/12/21 06/12/21 13:00 13:16 13:30 Temperature Pulse Rate 84 82 92 H Respiratory 18 18 21 Rate Blood Pressure 121/84 118/81 138/91 Blood Pressure [Right] O2 Sat by Pulse 100 100 Oximetry 06/12/21 06/12/21 06/12/21 13:46 14:00 14:16 Temperature Pulse Rate 83 83 83 Respiratory 18 18 18 Rate Blood Pressure 117/80 118/81 112/82 Blood Pressure [Right] O2 Sat by Pulse 100 100 Oximetry 06/12/21 06/12/21 06/12/21 14:30 14:45 15:00 Temperature Pulse Rate 83 85 86 Respiratory 18 20 19 Rate Blood Pressure 120/80 120/80 119/79 Blood Pressure [Right] O2 Sat by Pulse 100 100 Oximetry 06/12/21 06/12/21 06/12/21 15:16 15:30 15:46 Temperature Pulse Rate 83 83 84 Respiratory 18 18 18 Rate Blood Pressure 122/82 121/81 118/82 Blood Pressure [Right] O2 Sat by Pulse 100 100 100 Oximetry 06/12/21 06/12/21 06/12/21 16:00 16:16 16:30 Temperature Pulse Rate 82 92 H 83 Respiratory 18 21 18 Rate Blood Pressure 120/82 116/81 116/80 Blood Pressure [Right] O2 Sat by Pulse 100 100 100 Oximetry 06/12/21 06/12/21 06/12/21 16:46 17:00 17:16 Temperature Pulse Rate 84 83 84 Respiratory 18 18 18 Rate Blood Pressure 115/80 119/80 115/80 Blood Pressure [Right] O2 Sat by Pulse 100 100 100 Oximetry 06/12/21 06/12/21 06/12/21 17:17 17:30 17:46 Temperature Pulse Rate 91 H 84 84 Respiratory 18 18 Rate Blood Pressure 138/92 117/82 118/80 Blood Pressure [Right] O2 Sat by Pulse 100 100 Oximetry 06/12/21 06/12/21 06/12/21 18:00 18:11 18:16 Temperature 98.7 F Pulse Rate 83 87 85 Respiratory 18 16 18 Rate Blood Pressure 116/80 123/90 Blood Pressure 123/87 [Right] O2 Sat by Pulse 100 96 100 Oximetry 06/12/21 06/12/21 06/12/21 18:30 18:46 19:00 Temperature Pulse Rate 82 83 82 Respiratory 19 19 18 Rate Blood Pressure 119/78 119/80 117/80 Blood Pressure [Right] O2 Sat by Pulse 100 100 100 Oximetry 06/12/21 06/12/21 06/12/21 19:16 19:30 19:33 Temperature 98.4 F Pulse Rate 84 83 Respiratory 18 19 Rate Blood Pressure 119/81 118/81 Blood Pressure [Right] O2 Sat by Pulse 100 100 Oximetry 06/12/21 06/12/21 06/12/21 19:46 20:00 20:16 Temperature Pulse Rate 99 H 93 H 87 Respiratory 23 21 20 Rate Blood Pressure 119/82 132/84 126/81 Blood Pressure [Right] O2 Sat by Pulse 100 100 100 Oximetry 06/12/21 06/12/21 06/12/21 20:20 20:30 20:46 Temperature Pulse Rate 88 85 84 Respiratory 20 19 Rate Blood Pressure 79/50 123/75 115/76 Blood Pressure [Right] O2 Sat by Pulse 100 100 100 Oximetry 06/12/21 06/12/21 06/12/21 21:00 21:16 21:30 Temperature Pulse Rate 84 83 82 Respiratory 19 20 20 Rate Blood Pressure 116/74 122/74 120/75 Blood Pressure [Right] O2 Sat by Pulse 100 100 100 Oximetry 06/12/21 06/12/21 06/12/21 21:46 22:00 22:16 Temperature Pulse Rate 85 86 83 Respiratory 21 22 21 Rate Blood Pressure 133/76 132/83 134/82 Blood Pressure [Right] O2 Sat by Pulse 100 100 100 Oximetry 06/12/21 06/12/21 06/12/21 22:30 22:52 23:00 Temperature Pulse Rate 88 84 95 H Respiratory 21 18 22 Rate Blood Pressure 134/82 136/90 136/90 Blood Pressure [Right] O2 Sat by Pulse 100 100 100 Oximetry 06/12/21 06/12/21 06/12/21 23:16 23:30 23:46 Temperature Pulse Rate 82 81 79 Respiratory 18 18 18 Rate Blood Pressure 130/94 136/90 102/71 Blood Pressure [Right] O2 Sat by Pulse 100 100 100 Oximetry 06/12/21 06/13/21 06/13/21 23:56 00:00 00:16 Temperature Pulse Rate 79 78 78 Respiratory 18 18 18 Rate Blood Pressure 98/68 98/68 98/68 Blood Pressure [Right] O2 Sat by Pulse 100 100 100 Oximetry 06/13/21 06/13/21 06/13/21 00:30 00:46 01:00 Temperature Pulse Rate 77 77 77 Respiratory 18 18 18 Rate Blood Pressure 99/69 101/69 104/70 Blood Pressure [Right] O2 Sat by Pulse 100 100 100 Oximetry 06/13/21 06/13/21 06/13/21 01:16 01:30 01:46 Temperature Pulse Rate 77 76 76 Respiratory 18 18 18 Rate Blood Pressure 103/70 98/69 100/71 Blood Pressure [Right] O2 Sat by Pulse 100 100 100 Oximetry 06/13/21 06/13/21 06/13/21 02:00 02:16 02:30 Temperature Pulse Rate 76 77 76 Respiratory 18 18 19 Rate Blood Pressure 100/69 103/72 123/86 Blood Pressure [Right] O2 Sat by Pulse 100 100 100 Oximetry 06/13/21 06/13/21 06/13/21 02:46 03:00 03:16 Temperature Pulse Rate 79 79 79 Respiratory 18 18 18 Rate Blood Pressure 111/78 111/78 117/84 Blood Pressure [Right] O2 Sat by Pulse 100 100 100 Oximetry 06/13/21 06/13/21 06/13/21 03:30 03:46 04:00 Temperature Pulse Rate 79 80 77 Respiratory 18 18 18 Rate Blood Pressure 117/84 115/85 116/82 Blood Pressure [Right] O2 Sat by Pulse 100 100 100 Oximetry 06/13/21 06/13/21 06/13/21 04:16 04:30 04:45 Temperature Pulse Rate 78 79 88 Respiratory 18 18 Rate Blood Pressure 127/93 125/91 122/76 Blood Pressure [Right] O2 Sat by Pulse 100 100 100 Oximetry 06/13/21 06/13/21 06/13/21 04:46 05:00 05:15 Temperature Pulse Rate 79 77 Respiratory 18 18 Rate Blood Pressure 114/81 115/80 Blood Pressure [Right] O2 Sat by Pulse 100 100 100 Oximetry 06/13/21 06/13/21 06/13/21 05:16 05:30 05:46 Temperature Pulse Rate 85 78 82 Respiratory 21 20 22 Rate Blood Pressure 109/79 118/79 124/86 Blood Pressure [Right] O2 Sat by Pulse 100 100 100 Oximetry 06/13/21 06/13/21 06/13/21 06:00 06:16 06:30 Temperature Pulse Rate 78 77 77 Respiratory 20 19 20 Rate Blood Pressure 106/72 101/71 104/70 Blood Pressure [Right] O2 Sat by Pulse 100 100 100 Oximetry 06/13/21 06/13/21 06/13/21 06:46 07:00 07:30 Temperature Pulse Rate 77 76 75 Respiratory 19 20 21 Rate Blood Pressure 107/72 107/72 113/74 Blood Pressure [Right] O2 Sat by Pulse 100 100 100 Oximetry 06/13/21 06/13/21 06/13/21 08:00 08:30 08:42 Temperature Pulse Rate 86 82 76 Respiratory 22 21 Rate Blood Pressure 109/76 113/86 115/80 Blood Pressure [Right] O2 Sat by Pulse 100 100 100 Oximetry 06/13/21 06/13/21 06/13/21 09:00 09:19 09:30 Temperature 96.8 F L Pulse Rate 76 75 Respiratory 19 19 Rate Blood Pressure 109/77 112/80 Blood Pressure [Right] O2 Sat by Pulse 100 100 Oximetry 06/13/21 06/13/21 06/13/21 10:00 10:30 11:00 Temperature Pulse Rate 76 76 74 Respiratory 20 19 18 Rate Blood Pressure 117/81 130/91 115/81 Blood Pressure [Right] O2 Sat by Pulse 100 100 100 Oximetry 06/13/21 06/13/21 06/13/21 11:30 12:00 12:30 Temperature Pulse Rate 78 76 76 Respiratory 20 16 17 Rate Blood Pressure 124/88 108/78 106/75 Blood Pressure [Right] O2 Sat by Pulse 100 100 100 Oximetry 06/13/21 06/13/21 06/13/21 12:55 13:00 13:30 Temperature Pulse Rate 73 76 72 Respiratory 19 19 Rate Blood Pressure 106/74 109/76 105/73 Blood Pressure [Right] O2 Sat by Pulse 100 100 100 Oximetry 06/13/21 06/13/21 06/13/21 14:00 14:30 15:00 Temperature Pulse Rate 75 76 75 Respiratory 21 23 23 Rate Blood Pressure 116/78 123/88 120/84 Blood Pressure [Right] O2 Sat by Pulse 100 100 100 Oximetry 06/13/21 06/13/21 06/13/21 15:30 16:00 16:30 Temperature Pulse Rate 80 76 76 Respiratory 23 24 24 Rate Blood Pressure 124/85 126/86 131/96 Blood Pressure [Right] O2 Sat by Pulse 100 100 100 Oximetry 06/13/21 06/13/21 06/13/21 16:58 17:00 17:30 Temperature Pulse Rate 78 75 75 Respiratory 28 H 26 H 23 Rate Blood Pressure 123/86 120/91 123/86 Blood Pressure [Right] O2 Sat by Pulse 100 100 100 Oximetry 06/13/21 06/13/21 06/13/21 18:00 18:30 18:48 Temperature 95.9 F L Pulse Rate 75 73 Respiratory 23 23 Rate Blood Pressure 120/86 140/89 Blood Pressure [Right] O2 Sat by Pulse 100 100 Oximetry 06/13/21 06/13/21 06/13/21 19:00 19:21 20:00 Temperature Pulse Rate 79 75 72 Respiratory 27 H 16 Rate Blood Pressure 139/89 123/85 138/82 Blood Pressure [Right] O2 Sat by Pulse 100 100 100 Oximetry 06/13/21 06/13/21 06/13/21 21:00 22:00 22:28 Temperature Pulse Rate 70 83 Respiratory 17 25 H Rate Blood Pressure 120/80 151/96 Blood Pressure [Right] O2 Sat by Pulse 100 100 100 Oximetry 06/13/21 06/13/21 06/13/21 22:34 23:36 23:53 Temperature Pulse Rate 73 67 Respiratory 21 Rate Blood Pressure 141/92 104/77 Blood Pressure [Right] O2 Sat by Pulse 100 100 100 Oximetry - Reevaluation(s) Reevaluation #1: Patient arrived via EMS. Patient had cardiac arrest. Report received from EMS. Patient transferred to our [facility]speed and CPR continued. 06/09/21 002:55 Reevaluation #2: Patient has spontaneous return of circulation. We will check the blood sugar since EMS did not check. Patient's blood sugar is 24. Patient will be given dextrose. 06/09/21 02:57 Reevaluation #3: Patient given 2 A of dextrose. Patient's blood sugar now retired. Patient given 2 more epi and 2 atropine for bradycardia and hypotension. Patient will be started on a more epinephrine drip for hypotension. Patient intubated. See procedure note. 06/09/21 03:06 Reevaluation #4: Patient started on fluids and still on Levophed. Patient's blood pressures i mproving. We will titrate down the nicardipine. 06/09/21 03:27 Reevaluation #5: Patient anemic. Patient will be typed and screened. Patient will be given packed red blood cells. Patient blood pressure continues to improve. We will continue to decrease the Levophed drip. 06/09/21 03:58 Patient's blood pressure continues to improve. Patient is on the ventilator. 06/09/21 04:54 PRBCs are being started. We will continue to monitor blood pressure and continue to titrate down Levophed. 06/09/21 05:54 Patient signed out to oncoming physician to follow-up on CAT scans and admit to the hospital service. 06/09/21 06:08 - Intubation Time Out Performed: Yes Sedative: none Laryngoscope: fiberoptic video scope Size: 4 Assist Device Used: fiberoptic device ET Tube Size: 7.5 Tube Secured Depth (cm): 22 Tube Secured Location: teeth Tube Placement Confirmation: visualized tube passing t, equal breath sounds bilat, no breath sounds over epi, confirmation by capnometr Patient Tolerated Procedure: well, no complications Intubation Complications: none ED Medical Decision Making - Lab Data Result diagrams: 06/13/21 08:11 06/13/21 08:11 - EKG Data -: EKG Interpreted by Me EKG shows normal: sinus rhythm, axis, intervals, QRS complexes, ST-T waves Rate: normal - Radiology Data Radiology results: report reviewed, image reviewed interpreted by me: Chest x-ray: No pneumonia, no pneumothorax, no osseous findings, ET tube in satisfactory position. CHEST 1 VIEW INDICATION / CLINICAL INFORMATION: ETT placement STUDY TIME: 324 COMPARISON: 05/22/2016 FINDINGS: SUPPORT DEVICES: Endotracheal tube has been inserted and appears to be in satisfactory position with tip approximately 4.2 cm above the sudeep. Nasogastric tube extends below the diaphragm. HEART / MEDIASTINUM: No significant abnormality. LUNGS / PLEURA: Artifact is noted in multiple areas. Lung fierro appear clear. No pneumothorax. ADDITIONAL FINDINGS: No significant additional findings. - Medical Decision Making Patient is a 60-year-old female who presents emergency room for cardiac arrest. Patient report received from EMS. EMS states that the patient has not been feeling well for a few days and has been complaining of abdominal pain. EMS states the patient was found down and CPR was initiated by them. Patient was not intubated but being bagged with a BVM. EMS did not check his sugar. Prehospital, the patient received 1 of calcium, 1 of epi and 1 bicarb. After the patient arrived, CPR was continued. Patient was given 1 of epi and we have a spontaneous return of circulation. Patient then had a blood sugar check and it was 24 and patient was given 2 A of D50. Patient was then intubated. Patient was then started on IV fluids. Patient found to be hypotensive and the patient was started on Levophed. Patient blood pressure monitoring and the Levophed was slowly decreased. Patient had labs done which show significant abnormalities. Patient found to have a low hemoglobin at 3, lactic acidosis. Patient given early antibiotics. Patient given IV fluids. Patient typed and screened and transfused 2 units of packed red blood cells. Patient's blood pressure improved with therapy. Intubation, the patient had a NG placed. Patient's NG shows coffee-ground emesis. Patient had a CT scan of the head and a CT scan of the abdomen ordered. Patient CT scans are pending and the patient was signed out to the oncoming ER physician for final disposition and admission to the hospital service. Critical care time documented due to the multiple reassessments, prolonged time at the bedside, interpretation of diagnostics and labs. - Differential Diagnosis Cardiac arrest, GI bleed, hypoglycemia, abdominal pain Critical Care Time: Yes Critical care time in (mins) excluding proc time.: 80 Critical care attestation.: If time is entered above; I have spent that time in minutes in the direct care of this critically ill patient, excluding procedure time. Critical Care Time: 80 minutes ED Disposition Clinical Impression: Cardiac arrest, Signs of return of spontaneous circulation, Hyperglycemia, Lactic acidosis Hypotension Qualifiers: Hypotension type: unspecified hypotension type Qualified Code(s): I95.9 - Hypotension, unspecified GI bleed Qualifiers: GI bleed type/associated pathology: unspecified gastrointestinal hemorrhage type Qualified Code(s): K92.2 - Gastrointestinal hemorrhage, unspecified Disposition: 09 ADMITTED INPATIENT Is pt being admited?: Yes Does the pt Need Aspirin: No Condition: Critical Time of Disposition: 06:12
[2021-06-09] MEDS ORDERED: CEFEPIME/NS 2 GM/100 ML 2 GM/100 ML BAG IV ONE (03:34)
--- NOTE | 2021-06-09 03:50 | XRay Report ---
CHEST 1 VIEW INDICATION / CLINICAL INFORMATION: ETT placement STUDY TIME: 324 COMPARISON: 05/22/2016 FINDINGS: SUPPORT DEVICES: Endotracheal tube has been inserted and appears to be in satisfactory position with tip approximately 4.2 cm above the sudeep. Nasogastric tube extends below the diaphragm. HEART / MEDIASTINUM: No significant abnormality. LUNGS / PLEURA: Artifact is noted in multiple areas. Lung fierro appear clear. No pneumothorax. ADDITIONAL FINDINGS: No significant additional findings. Signer Name: Brayan Armenta MD Signed: 06/09/2021 3:46 AM Workstation Name: [id number]
[2021-06-09 04:09] LABS: Alanine Aminotransferase 106 units/L (7-56); Albumin 2.4 g/dL (3.9-5); BUN/Creatinine Ratio 16; Blood Urea Nitrogen 18 mg/dL (7-17); Calcium 11.5 mg/dL (8.4-10.2); Hemolysis Index 1
[2021-06-09 04:18] LABS: Basophils % (Auto) 0.4 % (0.0-1.8); Eosinophils % (Auto) 0.2 % (0.0-4.3); Lymphocytes # (Auto) 0.9 K/mm3 (1.2-5.4); Lymphocytes % (Auto) 9.7 % (13.4-35.0); Mean Corpuscular HGB Conc 26 % (30-34); Mean Corpuscular Volume 75 fl (79-97); Monocytes # (Auto) 0.8 K/mm3 (0.0-0.8); Monocytes % (Auto) 8.5 % (0.0-7.3); Platelet Count 109 K/mm3 (140-440); Red Blood Count 1.57 M/mm3 (3.65-5.03)
[2021-06-09 04:21] LABS: Hematocrit 11.8 % (30.3-42.9); Red Cell Distribution Width 21.7 % (13.2-15.2)
[2021-06-09] MEDS: NORepinephrine/NS 4 MG-250 ML 4 MG/250 ML BAG IV SCH ×2 (04:21→13:22)
[2021-06-09 04:28] LABS: INR 3.36 (0.87-1.13)
[2021-06-09 04:30] LABS: Partial Thromboplastin Time 66.3 Sec. (24.2-36.6)
[2021-06-09] MEDS ORDERED: SODIUM CHLORIDE 0.9% 500 ML 500 ML IV ONE ×2 (04:52→06:40)
[2021-06-09] MEDS ORDERED: EPINEPHrine 1 MG/10 ML SYRINGE ONE (05:26)
[2021-06-09] MEDS ORDERED: ATROPINE 0.1% (1 MG/10 ML) CARDIAC SYRINGE ONE (05:26)
[2021-06-09] MEDS ORDERED: fentaNYL 100 MCG/2 ML INJ ONE (07:19)
[2021-06-09] MEDS ORDERED: fentaNYL 100 MCG/2 ML INJ IV ONE ×2 (07:25→09:34)
[2021-06-09] MEDS ORDERED: MIDAZOLAM 2 MG/2 ML INJ IV PRN (07:48)
--- NOTE | 2021-06-09 07:54 | Emergency Department Report ---
Blank Doc - Documentation Documentation: [id number] assumed care from Dr. Yeung. CT scans are pending. We will proceed w ith admission subsequent to CT scans. He has already spoken with the hospitalist overnight. They requested CT scans. Versed drip has been ordered for ongoing sedation. Patient has been bucking the ventilator. Labs and CT scans have been reviewed. Case was discussed with the hospitalist will admit. We have maintained a Versed drip for sedation.
[2021-06-09] MEDS ORDERED: SODIUM CHLORIDE 0.9% 1000 ML 1,000 ML ONE ×2 (08:41→17:28)
--- NOTE | 2021-06-09 08:47 | Cat Scan Report ---
CT HEAD WITHOUT CONTRAST INDICATION / CLINICAL INFORMATION: cardiac arrest. TECHNIQUE: All CT scans at this location are performed using CT dose reduction for ALARA by means of automated exposure control. COMPARISON: None available. FINDINGS: HEMORRHAGE: None. ACUTE INFARCTION: No Significant Abnormality MASS/MASS EFFECT: No Significant Abnormality CEREBRAL PARENCHYMA: No acute focal attenuation abnormality. VENTRICULAR SYSTEM: Normal in size and morphology for the patient's age. ORBITS: Normal as visualized. SKULL: No significant abnormality. PARANASAL SINUSES / MASTOID AIR CELLS: Normal as visualized. ADDITIONAL FINDINGS: None. IMPRESSION: 1. No acute intracranial abnormality. Signer Name: Michael Rodriguez MD Signed: 06/09/2021 8:42 AM Workstation Name: [id number]
--- NOTE | 2021-06-09 08:52 | Cat Scan Report ---
CT ABDOMEN AND PELVIS WITH CONTRAST INDICATION / CLINICAL INFORMATION: abd pain. cardiac arrest 100 ml omni 300 . TECHNIQUE: Axial CT images were obtained through the abdomen and pelvis after IV contrast. All CT sc ans at this location are performed using CT dose reduction for ALARA by means of automated exposure c ontrol. COMPARISON: None available. FINDINGS: LOWER CHEST: Patchy opacity in the posterior right lower lobe, likely atelectasis. LIVER: No significant abnormality. GALLBLADDER: Gallstones. There is gallbladder wall thickening with pericholecystic edema. BILE DUCTS: No significant abnormality. PANCREAS: No significant abnormality. SPLEEN: No significant abnormality. ADRENALS: No significant abnormality. RIGHT KIDNEY / URETER: No significant abnormality. LEFT KIDNEY / URETER: No significant abnormality. STOMACH / SMALL BOWEL: Mildly distended and fluid-filled. Enteric tube noted within the stomach body. Distal small bowel is fluid-filled. COLON: Proximal colon is distended with mild colonic wall thickening and large amount of liquid stool . APPENDIX: No significant abnormality. PERITONEUM: No free fluid. No free air. No fluid collection. LYMPH NODES: No significant adenopathy. AORTA / ARTERIES: No significant abnormality. IVC / VEINS: No significant abnormality. URINARY BLADDER: Esparza catheter present with moderate amount of intraluminal air within the bladder. REPRODUCTIVE ORGANS: No significant abnormality. ADDITIONAL FINDINGS: None. SKELETAL SYSTEM: No significant abnormality. Level degenerative changes of the lumbar spine. IMPRESSION: 1. Gallbladder wall thickening and pericholecystic edema without gallbladder distention. Findings ma y be related to patient's recent cardiac arrest or volume status given the absence of gallbladder dis tention. There is concern for acute cholecystitis, nuclear medicine HIDA scan is recommended. 2. Moderate distention and wall thickening of the ascending colon, could reflect focal colitis or al so be attributable to patient volume status and recent cardiac arrest. 3. Intraluminal gas of the urinary bladder, likely due to Esparza catheter placement. Recommend correl ation with urinalysis. Signer Name: Michael Rodriguez MD Signed: 06/09/2021 8:47 AM Workstation Name: [id number]
[2021-06-09] MEDS: MIDAZOLAM 100 MG in SODIUM CHLORIDE 0.9% 80 ML IV ONE (09:12)
[2021-06-09] MEDS ORDERED: MORPHINE 2 MG/1 ML INJ IV PRN (11:13)
[2021-06-09] MEDS ORDERED: ACETAMINOPHEN 325 MG TAB PO PRN (11:13)
[2021-06-09] MEDS ORDERED: ONDANSETRON 4 MG/2 ML INJ IV PRN (11:13)
[2021-06-09] MEDS ORDERED: HYDROmorphone 1 MG/1 ML INJ IV PRN (11:13)
[2021-06-09] MEDS ORDERED: VANCOMYCIN/NS 1 GM/250 ML 1 GM/250 ML BAG IV SCH (12:00)
[2021-06-09] MEDS ORDERED: VASOPRESSIN 20 UNIT in SODIUM CHLORIDE 0.9% 100 ML IV SCH (12:00)
[2021-06-09] MEDS ORDERED: VANCOMYCIN 1,500 MG in SODIUM CHLORIDE 0.9% 500 ML 500 ML IV NR (12:00)
[2021-06-09] MEDS ORDERED: OCTREOTIDE 500 MCG in SODIUM CHLORIDE 0.9% 100 ML IV SCH (12:00)
--- NOTE | 2021-06-09 12:23 | History and Physical Report ---
History of Present Illness Date of examination: 06/09/21 Date of admission: 06/09/2021 Chief complaint: Acute upper GI bleed and PEA arrest History of present illness: The patient is a 60-year-old female with no known past medical history (unable to obtain information from patient given clinical status) who was found down at home and unconscious. EMS was called to the scene and initiated CPR on transit. The patient received 1 epinephrine and 1 bicarb. Upon arrival to the ED, the patient was found to have a hemoglobin of 3.0. Gastric lavage revealed coffee-ground emesis and later progressed to dark red blood. The patient was intubated successfully without any complications. Further investigation revealed that the patient was hypoglycemic with a glucose of 20 requiring the administration of D50 x2. The patient was also hypotensive and required normal saline 500 cc, 3 units of PRBCs transfused, and initiation of Levophed up to 20. Multiple attempts were made to contact the patient's son; however, because it went unanswered. Patient is being admitted for PEA arrest likely secondary to acute upper GI bleed. Past History Past Medical History: No medical history (Unable to obtain further medical history given patient's clinical status) Medications and Allergies Allergies Allergy/AdvReac Type Severity Reaction Status Date / Time No Known Allergies Allergy Verified 05/22/16 22:45 Home Medications Medication Instructions Recorded Confirmed Last Taken Type amLODIPine [Norvasc] 5 mg PO DAILY #30 tab 05/23/16 Unknown Rx Chlorhexidine Mouthwash [Peridex] 15 ml MM BID #1 bottle 06/22/20 Unknown Rx Clindamycin [Clindamycin CAP] 300 mg PO Q8H #21 cap 06/22/20 Unknown Rx Active Meds: Active Medications Acetaminophen (Acetaminophen 325 Mg Tab) 650 mg PO Q4H PRN PRN Reason: Pain MILD(1-3)/Fever >100.5/GUTIERRES Dextrose (Dextrose 50% In Water (25gm) 50 Ml Syringe) 50 ml IV Q30MIN PRN; Protocol PRN Reason: Hypoglycemia Hydromorphone HCl (Hydromorphone 1 Mg/1 Ml Inj) 0.5 mg IV Q3H PRN PRN Reason: Pain , Severe (7-10) Last Admin: 06/09/21 11:40 Dose: 0.5 mg Documented by: Hydrophilic Ointment (Lip Therapy Vaseline) 1 applic TP Q2HR PRN PRN Reason: Dry Lips Norepinephrine (Levophed Drip 4 Mg/Ns 250 Ml) 4 mg in 250 mls @ 7.5 mls/hr IV TITR GABINO; Protocol Last Titration: 06/09/21 09:10 Dose: Infused Documented by: Midazolam HCl 100 mg/ Sodium (Chloride) 100 mls @ 1 mls/hr IV TITR ONE; Protocol Stop: 06/13/21 11:59 Last Admin: 06/09/21 09:12 Dose: 1 mg/hr, 1 mls/hr Documented by: Octreotide Acetate 500 mcg/ (Sodium Chloride) 101 mls @ 5.05 mls/hr IV TITR GABINO; Protocol Stop: 06/12/21 12:00 Vasopressin 20 unit/ Sodium (Chloride) 101 mls @ 9.09 mls/hr IV TITR GABINO; Protocol Pantoprazole Sodium 80 mg/ (Sodium Chloride) 100 mls @ 10 mls/hr IV DIRECT GABINO Vancomycin HCl 1,500 mg/ (Sodium Chloride) 530 mls @ 353.333 mls/hr IV ONCE@1200 NR Stop: 06/09/21 15:00 Vancomycin HCl (Vancomycin/Ns 1 Gm/250 Ml) 1 gm in 250 mls @ 166.667 mls/hr IV Q24H GABINO Midazolam HCl (Midazolam 2 Mg/2 Ml Inj) 2 mg IV Q10MIN PRN PRN Reason: Sedation Morphine Sulfate (Morphine 2 Mg/1 Ml Inj) 2 mg IV Q4H PRN PRN Reason: Pain, Moderate (4-6) Multi-Ingred Cream/Lotion/Oil/Oint (Mineral Oil/Petrolatum, White Ophth Oint 3.5 Gm) 1 applic OU Q4HR PRN PRN Reason: Dry Eye(s) Ondansetron HCl (Ondansetron 4 Mg/2 Ml Inj) 4 mg IV Q8H PRN PRN Reason: Nausea And Vomiting Sodium Chloride (Sodium Chloride 0.9% 10 Ml Flush Syringe) 10 ml IV BID GABINO Sodium Chloride (Sodium Chloride 0.9% 10 Ml Flush Syringe) 10 ml IV PRN PRN PRN Reason: LINE FLUSH Review of Systems ROS unobtainable: due to endotracheal tube Exam - Constitutional Vitals: Temp Pulse Resp BP Pulse Ox 89.7 F L 99 H 22 104/66 100 06/09/21 09:39 06/09/21 11:15 06/09/21 11:40 06/09/21 11:15 06/09/21 11:15 General appearance: Present: no acute distress (Intubated and sedated) - EENT Eyes: Present: PERRL, EOM intact - Neck Neck: Present: supple, normal ROM - Respiratory Respiratory effort: normal (Patient currently on ventilator) Respiratory: negative: CTA, diminished, rales, rhonchi, wheezing, other - Cardiovascular Rhythm: regular Heart Sounds: Present: S1 & S2 - Extremities Extremities: no ischemia, pulses intact, pulses symmetrical, No edema, normal temperature, normal color Peripheral Pulses: within normal limits - Abdominal General gastrointestinal: Present: soft, non-tender, non-distended, hypoactive bowel sounds Female genitourinary: Present: deferred - Rectal Rectal Exam: deferred - Integumentary Integumentary: Present: clear, warm, dry - Musculoskeletal Musculoskeletal: other (Unable to assess given sedation) - Psychiatric Psychiatric: other (Unable to assess given clinical status and sedation) - Allied Health Allied health notes reviewed: nursing HEART Score - HEART Score History: Moderately suspicious EKG: Normal Age: 45-65 Troponin: Troponin T < 0.010 ng/mL (0.00-0.029) 06/09/21 03:27 - Critical Actions Critical Actions: 4-6 pts:12-16.6% risk of adverse cardiac event. Should be admitted Results - Labs CBC & Chem 7: 06/09/21 03:59 06/09/21 03:27 Labs: Laboratory Last Values WBC 9.5 K/mm3 (4.5-11.0) 06/09/21 03:59 RBC 1.57 M/mm3 (3.65-5.03) L 06/09/21 03:59 Hgb 3.0 gm/dl (10.1-14.3) L* 06/09/21 03:59 Hct 11.8 % (30.3-42.9) L* 06/09/21 03:59 MCV 75 fl (79-97) L 06/09/21 03:59 MCH 19 pg (28-32) L 06/09/21 03:59 MCHC 26 % (30-34) L 06/09/21 03:59 RDW 21.7 % (13.2-15.2) H 06/09/21 03:59 Plt Count 109 K/mm3 (140-440) L 06/09/21 03:59 Lymph % (Auto) 9.7 % (13.4-35.0) L 06/09/21 03:59 Crowley % (Auto) 8.5 % (0.0-7.3) H 06/09/21 03:59 Eos % (Auto) 0.2 % (0.0-4.3) 06/09/21 03:59 Baso % (Auto) 0.4 % (0.0-1.8) 06/09/21 03:59 Lymph # (Auto) 0.9 K/mm3 (1.2-5.4) L 06/09/21 03:59 Crowley # (Auto) 0.8 K/mm3 (0.0-0.8) 06/09/21 03:59 Eos # (Auto) 0.0 K/mm3 (0.0-0.4) 06/09/21 03:59 Baso # (Auto) 0.0 K/mm3 (0.0-0.1) 06/09/21 03:59 Seg Neutrophils % 81.2 % (40.0-70.0) H 06/09/21 03:59 Seg Neutrophils # 7.7 K/mm3 (1.8-7.7) 06/09/21 03:59 PT 34.3 Sec. (12.2-14.9) H 06/09/21 03:59 INR 3.36 (0.87-1.13) H 06/09/21 03:59 APTT 66.3 Sec. (24.2-36.6) H* 06/09/21 03:59 ABG pH 6.845 (7.320-7.450) L 06/09/21 04:04 POC ABG pCO2 33.1 mmHg (32.0-48.0) 06/09/21 04:04 POC ABG pO2 116.6 mmHg (83-108) H 06/09/21 04:04 POC ABG HCO3 5.6 06/09/21 04:04 ABG O2 Saturation 92.7 (0-100) 06/09/21 04:04 POC ABG Base Excess -24.6 06/09/21 04:04 ABG Hemoglobin 2.6 (12.0-17.5) L 06/09/21 04:04 ABG Oxyhemoglobin 90.6 (94-98) L 06/09/21 04:04 ABG Methemoglobin 0.5 (0.0-1.5) 06/09/21 04:04 ABG Sodium 141.1 mmol/L (136.0-145.0) 06/09/21 04:04 ABG Potassium 3.0 mmol/L (3.40-4.50) L 06/09/21 04:04 ABG Chloride 104.0 mmol/L (98-107) 06/09/21 04:04 ABG Glucose 334 mg/dL (65-95) H 06/09/21 04:04 Carboxyhemoglobin 1.8 (0.5-1.5) H 06/09/21 04:04 FiO2 % 100.0 06/09/21 04:04 Sodium 141 mmol/L (137-145) 06/09/21 03:27 Potassium 4.0 mmol/L (3.6-5.0) 06/09/21 03:27 Chloride 95.2 mmol/L (98-107) L 06/09/21 03:27 Carbon Dioxide 8 mmol/L (22-30) L* 06/09/21 03:27 Anion Gap 43 mmol/L 06/09/21 03:27 BUN 18 mg/dL (7-17) H 06/09/21 03:27 Creatinine 1.1 mg/dL (0.6-1.2) 06/09/21 03:27 Estimated GFR > 60 ml/min 06/09/21 03:27 BUN/Creatinine Ratio 16 % 06/09/21 03:27 Glucose 540 mg/dL (65-100) H* 06/09/21 03:27 POC Glucose 191 mg/dL (70-105) H 06/09/21 11:42 Lactic Acid 25.20 mmol/L (0.7-2.0) H* 06/09/21 05:16 Calcium 11.5 mg/dL (8.4-10.2) H 06/09/21 03:27 Total Bilirubin 0.70 mg/dL (0.1-1.2) 06/09/21 03:27 AST 411 units/L (5-40) H 06/09/21 03:27 ALT 106 units/L (7-56) H 06/09/21 03:27 Alkaline Phosphatase 107 units/L (35-129) 06/09/21 03:27 Troponin T < 0.010 ng/mL (0.00-0.029) 06/09/21 03:27 Total Protein 4.9 g/dL (6.3-8.2) L 06/09/21 03:27 Albumin 2.4 g/dL (3.9-5) L 06/09/21 03:27 Albumin/Globulin Ratio 1.0 % 06/09/21 03:27 Arterial Blood Glucose 334 mg/dL (65-95) H 06/09/21 04:04 Blood Type B POSITIVE 06/09/21 04:00 Antibody Screen Negative 06/09/21 04:00 Crossmatch See Detail 06/09/21 04:00 Microbiology: Microbiology 06/09/21 03:42 Peripheral/Venous Blood Culture - Preliminary Culture in Progress 06/09/21 03:59 Peripheral/Venous Blood Culture - Preliminary Culture in Progress Assessment and Plan Assessment and plan: The patient is a 60-year-old female with unknown past medical history who was found down at home and required CPR before ROSC was achieved that was likely PEA arrest secondary to presumed acute upper GI bleed. #Acute upper GI bleed #Acute blood loss anemia #Hemorrhagic shock requiring pressors -Etiology unknown -Hemoglobin 3.0 -Status post normal saline 500 cc and 3 units packed RBC transfused for volume r esuscitation. Will continue to transfuse as needed if hemoglobin is less than 8. -Started on pantoprazole gtt. and octreotide gtt. -Consulted GI. GI on-call stated that upper endoscopy was highly unlikely to be performed due to it being the weekend and recommended outside transfer for quicker medical management. ED made aware and is currently initiating transfer. -Pending repeat labs: CMP, CBC, PT, PTT, fibrinogen -Status post ceftriaxone 1 g in the ED. We will continue due to unknown GI his tory and possible concern for esophageal bleed. -Currently on Levophed 20. Starting vasopressin 0.02 for additional hemodynamic support -Blood cultures, UA, and urine culture drawn in ED; pending results -Continue with vancomycin 1 g every 12 and ceftriaxone 1 g every 24 #Likely PEA arrest -ROSC achieved -EKG normal sinus rhythm. Not checking troponins given recent arrest (would expect troponins to be elevated). -Placing cooling blankets on patient; hospital does not have hypothermia protocol. -Ordered Tylenol 650 mg to be given if temperature greater than 92 Fahrenheit -Continue sedation with ketamine with RASS goal of -2; will evaluate need for sedation daily #Metabolic acidosis with gap #Lactic acidosis -AB.8/33/116; lactic acid 25 -Lactic acidosis likely secondary to PEA arrest and worsened by continued upper GI bleed -Pending repeat ABG and lactic acid -Status post administration of 500 cc NS; will consider LR administration after repeat labs -We will continue to monitor #Coagulopathy -INR 3.36, PTT 66 -Unknown if patient is taking therapeutic anticoagulation; however, could be secondary to acute liver injury in the setting of shock -Pending fibrinogen -We will continue to monitor and consider vitamin K administration if INR continues to increase significantly #Elevated transaminases -AST 411, ALT 106 -Unknown if elevation is due to acute shock versus prolonged alcohol history, especially given the increased ratio of AST to ALT. -We will continue to monitor #Acute hypoxic respiratory failure #Intubation -Currently intubated -Consulting pulmonology; pending recs #Hyperglycemia -Originally presented with hypoglycemia of 20 and required D50 x2 resulting in hyperglycemia -Blood glucose goal of 140-180 -Starting NPH 8 units every 8 with low SSI #Core metrics -Ordering Esparza placement -Keep head of bed at 30 degrees -Patient currently n.p.o. -CODE STATUS: Full code Advance Directives: No VTE prophylaxis?: Not ordered (Patient experiencing upper GI bleed. Will hold on VTE prophylaxis) Contraindication Mechanical VTE Prophylaxis: Contraindicated Reason for no VTE Prophylaxis: Bleeding Plan of care discussed with patient/family: No - Patient Problems (1) Cardiac arrest Onset Date: ~06/09/21 Current Visit: Yes Status: Acute (2) GI bleed Onset Date: ~06/09/21 Current Visit: Yes Status: Acute Qualifiers: GI bleed type/associated pathology: unspecified gastrointestinal hemorrhage type Qualified Code(s): K92.2 - Gastrointestinal hemorrhage, unspecified (3) Hypotension Onset Date: ~06/09/21 Current Visit: Yes Status: Acute Qualifiers: Hypotension type: unspecified hypotension type Qualified Code(s): I95.9 - Hypotension, unspecified (4) Lactic acidosis Onset Date: ~06/09/21 Current Visit: Yes Status: Acute
--- NOTE | 2021-06-09 12:28 | Electrocardiograph Report ---
[facility] Test Date: 2021-06-09 Test Time: 04:52:39 Pat Name: SHALOM HSU Department: Room: [place] [address] Gender: F Desk Top Publisher: NATHALY : 1960 Requested By: SARA DUMONT III Order Number: [id number] Reading MD: Clovis Vega Measurements Intervals Walsh Rate: 94 P: 81 DC: 163 QRS: 64 QRSD: 84 T: 12 QT: 425 QTc: 533 Interpretive Statements Sinus rhythm ST elevation, consider anterolateral injury Prolonged QT interval No previous ECG available for comparison Electronically Signed On 06-09-2021 12:28:08 EDT by Clovis Vega
[2021-06-09 12:45] LABS: Mean Corpuscular HGB Conc 30 % (30-34); Mean Corpuscular Volume 84 fl (79-97); Red Blood Count 3.58 M/mm3 (3.65-5.03)
[2021-06-09 12:50] LABS: INR 3.58 (0.87-1.13)
[2021-06-09 12:51] LABS: Partial Thromboplastin Time 52.6 Sec. (24.2-36.6)
[2021-06-09 12:57] LABS: BUN/Creatinine Ratio 17; Blood Urea Nitrogen 19 mg/dL (7-17); Calcium 7.8 mg/dL (8.4-10.2); Hemolysis Index 34
[2021-06-09 12:59] LABS: Hematocrit 29.9 % (30.3-42.9); Hemoglobin 8.9 gm/dl (10.1-14.3); Platelet Count 94 K/mm3 (140-440)
[2021-06-09] MEDS: INSULIN NPH, HUMAN 100 UNIT/1 ML SUB-Q SCH (14:22)
[2021-06-09 17:06] LABS: Total Cells Counted 100
[2021-06-09 17:07] LABS: Band Neutrophils # (Manual) 0.6 K/mm3
[2021-06-09 17:08] LABS: Anisocytosis 2+; Burr Cells 1+; Hypochromasia 2+; Poikilocytosis 1+
--- NOTE | 2021-06-09 18:58 | Event Note ---
Date: 06/09/21 called by admitting physician regarding pt presenting with PEA arrest and UGI bleeding with profound anemia, now s/p ROSC. given UGI bleeding and inability to perform procedures on the weekends due to staffing, recommended transferring patient following adequate resuscitation (blood transfusions, FFP to reverse coagulopathy, etc) as pt may require upper endoscopy during the weekend.
[2021-06-10] MEDS: NORepinephrine/NS 4 MG-250 ML 4 MG/250 ML BAG IV SCH (00:57)
[2021-06-10] MEDS: MIDAZOLAM 100 MG in SODIUM CHLORIDE 0.9% 80 ML IV ONE (00:58)
[2021-06-10] MEDS: PANTOPRAZOLE 80 MG in SODIUM CHLORIDE 0.9% 100 ML IV SCH ×3 (01:00→20:46)
[2021-06-10] MEDS ORDERED: LIDOCAINE 1%/EPINEPHRINE 1:100,000 VIAL (20 ML) INFILTRATI ONE (01:24)
--- NOTE | 2021-06-10 01:58 | Procedure Note ---
Date of procedure: 06/10/21 Pre-op diagnosis: shock Post-op diagnosis: same Procedure: The patient was evaluated in the emergency department for symptoms described in the history of present illness. He/she was evaluated in the context of the global COVID-19 pandemic, which necessitated consideration that the patient might be at risk for infection with the virus that causes COVID-19. Institutional protocols and algorithms that pertain to the evaluation of patients at risk for COVID-19 are in a state of rapid change based on information released by regulatory bodies including the CDC and federal and state organizations. These policies and algorithms were followed during the p elizabeth's care in the emergency department. Please note that these policies, procedures and recommendations changed on a rapid basis. Hospital physician, Dr. Izaguirre requested central line placement for vasopressor administration. In reviewing this patient's chart, it appears that she has been on vasoactive medications for nearly 24 hours. She has large-bore peripheral IVs, and it appears that no central venous access, PICC line or midline has been established on this patient. The patient is intubated and sedated and critically ill. The hospital physician and myself provide to provider emergent and administrative consent for sterile central line placement. The right internal jugular vein is identified with [id number] ultrasound guidance. The neck is anesthetized with 1% lidocaine and epinephrine, 10 cc. Patient prepped and draped in typical maximal sterile fashion. Using ultrasound guidance, right-sided internal jugular vein is cannulated with an 18-gauge needle, with 3 inch plastic catheter, guidewire, 0.032 x 60 cm, J-tip with a 3 mm radius is then inserted into the guiding catheter, and appropriate luminal placement is confirmed with real-time [id number] ultrasound guidance. A stab incision is made with an 11-gauge blade, and then incision is dilated. The 7 Tongan triple-lumen catheter has each of the 3 ports flushed with sterile saline in advance of placement. Then, a 7 Tongan triple-lumen catheter is inserted over the guidewire, and sutured to the skin. Real-time ultrasound guidance confirms appropriate luminal placement. Ports are aspirated easily, and flushed easily. Blue Biopatch is then affixed to the skin, and Tegaderm is applied to the skin. This patient tolerated the procedure well, and without obvious complication. Blood loss estimated at less than 50 cc. Post procedure x-ray demonstrates no pneumothorax, and appropriate line placement. [facility] [address] [address] [place] [address] XRay Report Signed Patient: SHALOM HSU MR#: [id number] 63 : 1960 Acct:[id number] Age/Sex: 60 / F ADM Date: 06/09/21 Loc: CC1 [id number]: JACKSON DA SILVA MD Ordering Physician: YULISSA FRANK MD Date of Service: 06/10/21 Procedure(s): XR chest 1V ap Accession Number(s): [id number] cc: YULISSA FRANK MD Fluoro Time In Minutes: CHEST 1 VIEW INDICATION / CLINICAL INFORMATION: s/p right IJ central line placement STUDY TIME: 0206 COMPARISON: 06/09/2021 FINDINGS: SUPPORT DEVICES: A right jugular central line is now seen with tip in the area of the upper superior vena cava. Other device positioning appears unchanged. HEART / MEDIASTINUM: Stable LUNGS / PLEURA: No significant pulmonary or pleural abnormality. No pneumothorax. ADDITIONAL FINDINGS: No significant additional findings. Signer Name: Brayan Armenta MD Signed: 06/10/2021 2:47 AM Workstation Name: [id number] Transcribed By: GJ Dictated By: Brayan Armenta MD Electronically Authenticated By: Brayan Armenta MD Signed Date/Time: 06/10/21246 DD/ 5 Anesthesia: regional, local Surgeon: YULISSA FRANK Estimated blood loss: minimal Pathology: none Condition: critical Disposition: no change
--- NOTE | 2021-06-10 02:51 | XRay Report ---
CHEST 1 VIEW INDICATION / CLINICAL INFORMATION: s/p right IJ central line placement STUDY TIME: 205 COMPARISON: 06/09/2021 FINDINGS: SUPPORT DEVICES: A right jugular central line is now seen with tip in the area of the upper superior vena cava. Other device positioning appears unchanged. HEART / MEDIASTINUM: Stable LUNGS / PLEURA: No significant pulmonary or pleural abnormality. No pneumothorax. ADDITIONAL FINDINGS: No significant additional findings. Signer Name: Brayan Armenta MD Signed: 06/10/2021 2:47 AM Workstation Name: [id number]
[2021-06-10 04:59] LABS: Basophils % (Auto) 0.1 % (0.0-1.8); Eosinophils # (Auto) 0.1 K/mm3 (0.0-0.4); Eosinophils % (Auto) 0.5 % (0.0-4.3); Hematocrit 33.9 % (30.3-42.9); Hemoglobin 10.9 gm/dl (10.1-14.3); Lymphocytes # (Auto) 0.6 K/mm3 (1.2-5.4); Lymphocytes % (Auto) 4.2 % (13.4-35.0); Mean Corpuscular HGB Conc 32 % (30-34); Mean Corpuscular Volume 79 fl (79-97); Monocytes # (Auto) 1.2 K/mm3 (0.0-0.8); Monocytes % (Auto) 8.6 % (0.0-7.3); Platelet Count 99 K/mm3 (140-440); Red Blood Count 4.28 M/mm3 (3.65-5.03)
[2021-06-10 05:23] LABS: Albumin 2.4 g/dL (3.9-5); Calcium 7.4 mg/dL (8.4-10.2)
[2021-06-10 05:46] LABS: ABG HCO3 12.6 mmol/L (20.0-26.0); ABG Methemoglobin 0.6 % (0.0-1.5); ABG Oxygen Saturation 98.9 % (95.0-99.0); ABG PCO2 24.9 mm Hg; ABG PH 7.323 pH Units (7.350-7.450); ABG PO2 152.9 mm Hg (80.0-90.0)
[2021-06-10 07:54] LABS: INR 2.42 (0.87-1.13)
[2021-06-10] MEDS ORDERED: POTASSIUM PHOSPHATE 45 MMOL in SODIUM CHLORIDE 0.9% 500 ML 500 ML IV ONE (08:00)
--- NOTE | 2021-06-10 08:35 | XRay Report ---
CHEST 1 VIEW 06/10/2021 7:19 AM INDICATION / CLINICAL INFORMATION: follow up respiratory failure. COMPARISON: 07/10/21 2:06 AM FINDINGS: SUPPORT DEVICES: Unchanged. HEART / MEDIASTINUM: Stable. LUNGS / PLEURA: No significant pulmonary or pleural abnormality. No pneumothorax. ADDITIONAL FINDINGS: No significant additional findings. IMPRESSION: 1. No significant change. Signer Name: Darcy Valero MD Signed: 06/10/2021 8:31 AM Workstation Name: [id number]
[2021-06-10] MEDS: INSULIN NPH, HUMAN 100 UNIT/1 ML SUB-Q SCH (08:45)
[2021-06-10] MEDS ORDERED: SODIUM CHLORIDE 0.9% 500 ML 500 ML IV NR (09:00)
[2021-06-10] MEDS ORDERED: ACETAMINOPHEN 650 MG RECT SUPP PR PRN (09:03)
[2021-06-10] MEDS ORDERED: WATER FOR IRRIG STERILE 250 ML BOTTLE IR ONE (09:41)
[2021-06-10] MEDS ORDERED: WATER FOR IRRIG STERILE 1,000 ML BOTTLE ONE (09:41)
--- NOTE | 2021-06-10 10:31 | Gastroenterology Consultation ---
History of Present Illness - Reason for Consult Consult date: 06/10/21 UGI bleed Requesting physician: JACKSON BARROS IW - History of Present Illness The patient is a 60 yo female who presented with PEA arrest and hematemesis. History obtained from chart review and discussion with other care providers as patient is intubated/sedated and unable to provide history. No family at bedside. Found down at home, PEA arrest s/p rosc in ER and had coffee ground emesis which turned to dark maroon emesis after resuscitation. profound anemia (hgb 3) on admission along with coagulopathy. No prior records in system. Past History Past Medical History: No medical history (Unable to obtain further medical history given patient's clinical status) Medications and Allergies Allergies Allergy/AdvReac Type Severity Reaction Status Date / Time No Known Allergies Allergy Verified 05/22/16 22:45 Home Medications Medication Instructions Recorded Confirmed Last Taken Type No Known Home Medications [No 06/09/21 06/09/21 Unknown History Reported Home Medications] Active Meds: Active Medications Acetaminophen (Acetaminophen 325 Mg Tab) 650 mg PO Q4H PRN PRN Reason: Pain MILD(1-3)/Fever >100.5/GUTIERRES Acetaminophen (Acetaminophen 650 Mg Rect Supp) 975 mg AK Q4H PRN PRN Reason: Fever >101 Last Admin: 06/10/21 10:21 Dose: 975 mg Documented by: Dextrose (Dextrose 50% In Water (25gm) 50 Ml Syringe) 50 ml IV Q30MIN PRN; Protocol PRN Reason: Hypoglycemia Hydromorphone HCl (Hydromorphone 1 Mg/1 Ml Inj) 0.5 mg IV Q3H PRN PRN Reason: Pain , Severe (7-10) Last Admin: 06/09/21 11:40 Dose: 0.5 mg Documented by: Hydrophilic Ointment (Lip Therapy Vaseline) 1 applic TP Q2HR PRN PRN Reason: Dry Lips Norepinephrine (Levophed Drip 4 Mg/Ns 250 Ml) 4 mg in 250 mls @ 7.5 mls/hr IV TITR GABINO; Protocol Last Titration: 06/10/21 07:01 Dose: 0 mcg/min, 0 mls/hr Documented by: Midazolam HCl 100 mg/ Sodium (Chloride) 100 mls @ 1 mls/hr IV TITR ONE; Protocol Stop: 06/13/21 11:59 Last Admin: 06/10/21 00:58 Dose: 1 mg/hr, 1 mls/hr Documented by: Octreotide Acetate 500 mcg/ (Sodium Chloride) 101 mls @ 5.05 mls/hr IV TITR GABINO; Protocol Stop: 06/12/21 12:00 Vasopressin 20 unit/ Sodium (Chloride) 101 mls @ 9.09 mls/hr IV TITR GABINO; Protocol Pantoprazole Sodium 80 mg/ (Sodium Chloride) 100 mls @ 10 mls/hr IV DIRECT GABINO Vancomycin HCl (Vancomycin/Ns 1 Gm/250 Ml) 1 gm in 250 mls @ 166.667 mls/hr IV Q24H GABINO Potassium Phosphate 45 mmol/ (Sodium Chloride) 515 mls @ 85 mls/hr IV ONCE ONE Stop: 06/10/21 14:03 Last Admin: 06/10/21 08:39 Dose: 85 mls/hr Documented by: Sodium Chloride (Nacl 0.9% 500 Ml) 500 mls @ 0 mls/hr IV ONCE@0900 NR Stop: 06/10/21 13:00 Insulin Human NPH (Insulin Nph, Human 100 Unit/1 Ml) 8 unit SUB-Q QDDIAB GABINO Last Admin: 06/10/21 08:45 Dose: Not Given Documented by: Midazolam HCl (Midazolam 2 Mg/2 Ml Inj) 2 mg IV Q10MIN PRN PRN Reason: Sedation Last Admin: 06/10/21 10:19 Dose: 2 mg Documented by: Morphine Sulfate (Morphine 2 Mg/1 Ml Inj) 2 mg IV Q4H PRN PRN Reason: Pain, Moderate (4-6) Multi-Ingred Cream/Lotion/Oil/Oint (Mineral Oil/Petrolatum, White Ophth Oint 3.5 Gm) 1 applic OU Q4HR PRN PRN Reason: Dry Eye(s) Sodium Chloride (Sodium Chloride 0.9% 10 Ml Flush Syringe) 10 ml IV BID GABINO Last Admin: 06/09/21 22:20 Dose: 10 ml Documented by: Sodium Chloride (Sodium Chloride 0.9% 10 Ml Flush Syringe) 10 ml IV PRN PRN PRN Reason: LINE FLUSH Reviewed/updated patient's home and current medications Review of Systems - Review of Systems ROS unobtainable: due to endotracheal tube, due to mental status Exam - Constitutional Vital Signs: Temp Pulse Resp BP Pulse Ox 96.7 F L 118 H 24 134/98 100 06/10/21 10:15 06/10/21 10:15 06/10/21 10:15 06/10/21 10:15 06/10/21 10:15 General appearance: other (nad, opens eyes, intubated/sedated) - EENT Eyes: PERRL - Neck Neck: supple, normal ROM - Respiratory Respiratory effort: normal Respiratory: bilateral: CTA - Cardiovascular Rhythm: regular Heart Sounds: Present: S1 & S2 - Gastrointestinal General gastrointestinal: Present: soft, non-tender, non-distended - Neurologic Neurological: other (intubated/sedated) - Labs CBC & Chem 7: 06/10/21 04:27 06/10/21 04:27 Lab Results: Laboratory Results - last 24 hr 06/09/21 06/09/21 06/09/21 04:00 04:04 11:42 WBC RBC Hgb Hct MCV MCH MCHC RDW Plt Count Lymph % (Auto) Nolan % (Auto) Eos % (Auto) Baso % (Auto) Lymph # (Auto) Nolan # (Auto) Eos # (Auto) Baso # (Auto) Add Manual Diff Total Counted Seg Neutrophils % Seg Neuts % (Manual) Band Neutrophils % Lymphocytes % (Manual) Monocytes % (Manual) Nucleated RBC % Seg Neutrophils # Seg Neutrophils # Man Band Neutrophils # Lymphocytes # (Manual) Abs React Lymphs (Man) Monocytes # (Manual) Eosinophils # (Manual) Basophils # (Manual) Metamyelocytes # Myelocytes # Promyelocytes # Blast Cells # WBC Morphology Hypersegmented Neuts Hyposegmented Neuts Hypogranular Neuts Smudge Cells Toxic Granulation Toxic Vacuolation Dohle Bodies Pelger-Huet Anomaly Gui Rods Platelet Estimate Clumped Platelets Plt Clumps, EDTA Large Platelets Giant Platelets Platelet Satelliting Plt Morphology Comment RBC Morphology Dimorphic RBCs Polychromasia Hypochromasia Poikilocytosis Anisocytosis Microcytosis Macrocytosis Spherocytes Pappenheimer Bodies Sickle Cells Target Cells Tear Drop Cells Ovalocytes Helmet Cells Martinez-Howell Bodies [place] Rings Anel Cells Bite Cells Crenated Cell Elliptocytes Acanthocytes (Spur) Rouleaux Hemoglobin C Crystals Schistocytes Malaria parasites Narendra Bodies Hem Pathologist Commnt PT INR APTT Fibrinogen ABG pH 6.845 L POC ABG pCO2 33.1 ABG pCO2 POC ABG pO2 116.6 H ABG pO2 POC ABG HCO3 5.6 ABG HCO3 ABG O2 Saturation 92.7 ABG O2 Content POC ABG Base Excess -24.6 ABG Base Excess ABG Hemoglobin 2.6 L ABG Oxyhemoglobin 90.6 L ABG Carboxyhemoglobin ABG Methemoglobin 0.5 ABG Sodium 141.1 ABG Potassium 3.0 L ABG Chloride 104.0 ABG Glucose 334 H Oxyhemoglobin Carboxyhemoglobin 1.8 H FiO2 FiO2 % 100.0 Sodium Potassium Chloride Carbon Dioxide Anion Gap BUN Creatinine Estimated GFR BUN/Creatinine Ratio Glucose POC Glucose 191 H Lactic Acid Calcium Total Bilirubin AST ALT Alkaline Phosphatase Lactate Dehydrogenase Total Protein Albumin Albumin/Globulin Ratio Arterial Blood Glucose 334 H Coronavirus (PCR) Blood Type B POSITIVE Antibody Screen Negative Crossmatch See Detail 06/09/21 06/09/21 06/09/21 11:44 12:27 12:27 WBC 14.2 H RBC 3.58 L Hgb 8.9 L D Hct 29.9 L D MCV 84 MCH 25 L MCHC 30 RDW 22.0 H Plt Count 94 L Lymph % (Auto) Nolan % (Auto) Eos % (Auto) Baso % (Auto) Lymph # (Auto) Nolan # (Auto) Eos # (Auto) Baso # (Auto) Add Manual Diff Complete Total Counted 100 Seg Neutrophils % Seg Neuts % (Manual) 87.0 H Band Neutrophils % 4.0 Lymphocytes % (Manual) 5.0 L Monocytes % (Manual) 4.0 Nucleated RBC % Not Reportable Seg Neutrophils # Seg Neutrophils # Man 12.4 H Band Neutrophils # 0.6 Lymphocytes # (Manual) 0.7 L Abs React Lymphs (Man) 0.0 Monocytes # (Manual) 0.6 Eosinophils # (Manual) 0.0 Basophils # (Manual) 0.0 Metamyelocytes # 0.0 Myelocytes # 0.0 Promyelocytes # 0.0 Blast Cells # 0.0 WBC Morphology Not Reportable Hypersegmented Neuts Not Reportable Hyposegmented Neuts Not Reportable Hypogranular Neuts Not Reportable Smudge Cells Not Reportable Toxic Granulation Not Reportable Toxic Vacuolation Not Reportable Dohle Bodies Not Reportable Pelger-Huet Anomaly Not Reportable Gui Rods Not Reportable Platelet Estimate Not Reportable Clumped Platelets Not Reportable Plt Clumps, EDTA Not Reportable Large Platelets Not Reportable Giant Platelets Not Reportable Platelet Satelliting Not Reportable Plt Morphology Comment Not Reportable RBC Morphology Not Reportable Dimorphic RBCs Not Reportable Polychromasia Not Reportable Hypochromasia 2+ Poikilocytosis 1+ Anisocytosis 2+ Microcytosis Not Reportable Macrocytosis Not Reportable Spherocytes Not Reportable Pappenheimer Bodies Not Reportable Sickle Cells Not Reportable Target Cells Not Reportable Tear Drop Cells Not Reportable Ovalocytes Not Reportable Helmet Cells Not Reportable Martinez-Howell Bodies Not Reportable [place] Rings Not Reportable Anel Cells 1+ Bite Cells Not Reportable Crenated Cell Not Reportable Elliptocytes Few Acanthocytes (Spur) Not Reportable Rouleaux Not Reportable Hemoglobin C Crystals Not Reportable Schistocytes Not Reportable Malaria parasites Not Reportable Narendra Bodies Not Reportable Hem Pathologist Commnt No PT 36.0 H INR 3.58 H APTT 52.6 H Fibrinogen 83 L* ABG pH POC ABG pCO2 ABG pCO2 POC ABG pO2 ABG pO2 POC ABG HCO3 ABG HCO3 ABG O2 Saturation ABG O2 Content POC ABG Base Excess ABG Base Excess ABG Hemoglobin ABG Oxyhemoglobin ABG Carboxyhemoglobin ABG Methemoglobin ABG Sodium ABG Potassium ABG Chloride ABG Glucose Oxyhemoglobin Carboxyhemoglobin FiO2 FiO2 % Sodium 145 Potassium 4.1 Chloride 109.5 H Carbon Dioxide 4 L* Anion Gap 36 BUN 19 H Creatinine 1.1 Estimated GFR > 60 BUN/Creatinine Ratio 17 Glucose 158 H POC Glucose Lactic Acid Calcium 7.8 L D Total Bilirubin AST ALT Alkaline Phosphatase Lactate Dehydrogenase 2208 H Total Protein Albumin Albumin/Globulin Ratio Arterial Blood Glucose Coronavirus (PCR) Blood Type Antibody Screen Crossmatch 06/09/21 06/09/21 06/10/21 12:27 13:12 04:21 WBC RBC Hgb Hct MCV MCH MCHC RDW Plt Count Lymph % (Auto) Nolan % (Auto) Eos % (Auto) Baso % (Auto) Lymph # (Auto) Nolan # (Auto) Eos # (Auto) Baso # (Auto) Add Manual Diff Total Counted Seg Neutrophils % Seg Neuts % (Manual) Band Neutrophils % Lymphocytes % (Manual) Monocytes % (Manual) Nucleated RBC % Seg Neutrophils # Seg Neutrophils # Man Band Neutrophils # Lymphocytes # (Manual) Abs React Lymphs (Man) Monocytes # (Manual) Eosinophils # (Manual) Basophils # (Manual) Metamyelocytes # Myelocytes # Promyelocytes # Blast Cells # WBC Morphology TNR Hypersegmented Neuts Hyposegmented Neuts Hypogranular Neuts Smudge Cells Toxic Granulation Toxic Vacuolation Dohle Bodies Pelger-Huet Anomaly Gui Rods Platelet Estimate Clumped Platelets Plt Clumps, EDTA Large Platelets Giant Platelets Platelet Satelliting Plt Morphology Comment RBC Morphology Dimorphic RBCs Polychromasia Hypochromasia Poikilocytosis Anisocytosis Microcytosis Macrocytosis Spherocytes Pappenheimer Bodies Sickle Cells Target Cells Tear Drop Cells Ovalocytes Helmet Cells Martinez-Howell Bodies [place] Rings Anel Cells Bite Cells Crenated Cell Elliptocytes Acanthocytes (Spur) Rouleaux Hemoglobin C Crystals Schistocytes Malaria parasites Narendra Bodies Hem Pathologist Commnt PT INR APTT Fibrinogen ABG pH 7.323 L POC ABG pCO2 ABG pCO2 24.9 POC ABG pO2 ABG pO2 152.9 H POC ABG HCO3 ABG HCO3 12.6 L ABG O2 Saturation 98.9 ABG O2 Content 12.8 POC ABG Base Excess ABG Base Excess -12.0 L ABG Hemoglobin 9.2 L ABG Oxyhemoglobin ABG Carboxyhemoglobin 1.6 ABG Methemoglobin 0.6 ABG Sodium ABG Potassium ABG Chloride ABG Glucose Oxyhemoglobin 96.7 Carboxyhemoglobin FiO2 30 FiO2 % Sodium Potassium Chloride Carbon Dioxide Anion Gap BUN Creatinine Estimated GFR BUN/Creatinine Ratio Glucose POC Glucose Lactic Acid Calcium Total Bilirubin AST ALT Alkaline Phosphatase Lactate Dehydrogenase Total Protein Albumin Albumin/Globulin Ratio Arterial Blood Glucose Coronavirus (PCR) Negative Blood Type Antibody Screen Crossmatch 06/10/21 06/10/21 06/10/21 04:27 04:27 06:59 WBC 14.1 H RBC 4.28 Hgb 10.9 Hct 33.9 MCV 79 MCH 25 L MCHC 32 RDW 20.0 H Plt Count 99 L Lymph % (Auto) 4.2 L Nolan % (Auto) 8.6 H Eos % (Auto) 0.5 Baso % (Auto) 0.1 Lymph # (Auto) 0.6 L Nolan # (Auto) 1.2 H Eos # (Auto) 0.1 Baso # (Auto) 0.0 Add Manual Diff Total Counted Seg Neutrophils % 86.6 H Seg Neuts % (Manual) Band Neutrophils % Lymphocytes % (Manual) Monocytes % (Manual) Nucleated RBC % Seg Neutrophils # 12.2 H Seg Neutrophils # Man Band Neutrophils # Lymphocytes # (Manual) Abs React Lymphs (Man) Monocytes # (Manual) Eosinophils # (Manual) Basophils # (Manual) Metamyelocytes # Myelocytes # Promyelocytes # Blast Cells # WBC Morphology Hypersegmented Neuts Hyposegmented Neuts Hypogranular Neuts Smudge Cells Toxic Granulation Toxic Vacuolation Dohle Bodies Pelger-Huet Anomaly Gui Rods Platelet Estimate Clumped Platelets Plt Clumps, EDTA Large Platelets Giant Platelets Platelet Satelliting Plt Morphology Comment RBC Morphology Dimorphic RBCs Polychromasia Hypochromasia Poikilocytosis Anisocytosis Microcytosis Macrocytosis Spherocytes Pappenheimer Bodies Sickle Cells Target Cells Tear Drop Cells Ovalocytes Helmet Cells Martinez-Howell Bodies [place] Rings Anel Cells Bite Cells Crenated Cell Elliptocytes Acanthocytes (Spur) Rouleaux Hemoglobin C Crystals Schistocytes Malaria parasites Narendra Bodies Hem Pathologist Commnt PT INR APTT Fibrinogen ABG pH POC ABG pCO2 ABG pCO2 POC ABG pO2 ABG pO2 POC ABG HCO3 ABG HCO3 ABG O2 Saturation ABG O2 Content POC ABG Base Excess ABG Base Excess ABG Hemoglobin ABG Oxyhemoglobin ABG Carboxyhemoglobin ABG Methemoglobin ABG Sodium ABG Potassium ABG Chloride ABG Glucose Oxyhemoglobin Carboxyhemoglobin FiO2 FiO2 % Sodium 146 H Potassium 3.4 L Chloride 115.2 H Carbon Dioxide 14 L D Anion Gap 20 BUN 30 H Creatinine 1.9 H D Estimated GFR 33 BUN/Creatinine Ratio 16 Glucose 122 H POC Glucose Lactic Acid 4.60 H* Calcium 7.4 L Total Bilirubin 7.00 H AST 2708 H ALT 522 H Alkaline Phosphatase 93 Lactate Dehydrogenase Total Protein 4.8 L Albumin 2.4 L Albumin/Globulin Ratio 1.0 Arterial Blood Glucose Coronavirus (PCR) Blood Type Antibody Screen Crossmatch 06/10/21 06/10/21 06:59 08:23 WBC RBC Hgb Hct MCV MCH MCHC RDW Plt Count Lymph % (Auto) Nolan % (Auto) Eos % (Auto) Baso % (Auto) Lymph # (Auto) Nolan # (Auto) Eos # (Auto) Baso # (Auto) Add Manual Diff Total Counted Seg Neutrophils % Seg Neuts % (Manual) Band Neutrophils % Lymphocytes % (Manual) Monocytes % (Manual) Nucleated RBC % Seg Neutrophils # Seg Neutrophils # Man Band Neutrophils # Lymphocytes # (Manual) Abs React Lymphs (Man) Monocytes # (Manual) Eosinophils # (Manual) Basophils # (Manual) Metamyelocytes # Myelocytes # Promyelocytes # Blast Cells # WBC Morphology Hypersegmented Neuts Hyposegmented Neuts Hypogranular Neuts Smudge Cells Toxic Granulation Toxic Vacuolation Dohle Bodies Pelger-Huet Anomaly Gui Rods Platelet Estimate Clumped Platelets Plt Clumps, EDTA Large Platelets Giant Platelets Platelet Satelliting Plt Morphology Comment RBC Morphology Dimorphic RBCs Polychromasia Hypochromasia Poikilocytosis Anisocytosis Microcytosis Macrocytosis Spherocytes Pappenheimer Bodies Sickle Cells Target Cells Tear Drop Cells Ovalocytes Helmet Cells Martinez-Howell Bodies [place] Rings [place] Cells Bite Cells Crenated Cell Elliptocytes Acanthocytes (Spur) Rouleaux Hemoglobin C Crystals Schistocytes Malaria parasites Narendra Bodies Hem Pathologist Commnt PT 26.8 H INR 2.42 H APTT Fibrinogen ABG pH POC ABG pCO2 ABG pCO2 POC ABG pO2 ABG pO2 POC ABG HCO3 ABG HCO3 ABG O2 Saturation ABG O2 Content POC ABG Base Excess ABG Base Excess ABG Hemoglobin ABG Oxyhemoglobin ABG Carboxyhemoglobin ABG Methemoglobin ABG Sodium ABG Potassium ABG Chloride ABG Glucose Oxyhemoglobin Carboxyhemoglobin FiO2 FiO2 % Sodium Potassium Chloride Carbon Dioxide Anion Gap BUN Creatinine Estimated GFR BUN/Creatinine Ratio Glucose POC Glucose 121 H Lactic Acid Calcium Total Bilirubin AST ALT Alkaline Phosphatase Lactate Dehydrogenase Total Protein Albumin Albumin/Globulin Ratio Arterial Blood Glucose Coronavirus (PCR) Blood Type Antibody Screen Crossmatch Assessment and Plan 1. Upper GI bleed 2. PEA arrest s/p ROSC 3. Acute blood loss anemia 4. Coagulopathy -pt with profound anemia in setting of UGI bleed and PEA arrest. labs improved following transfusions/resuscitation measures. will plan for EGD at bedside this morning.
--- NOTE | 2021-06-10 10:34 | Post Operative Note ---
Pre-op diagnosis: GI bleed Post-op diagnosis: same Findings: large amount of old appearing blood and clots in the proximal body; old blood adhered to the mucosa throughout the stomach. no active bleeding seen during upper endoscopy. limitations were limited due to blood/clots. there was an area of inflamed mucosa and adherent clot which could not be removed in the proximal body. unclear if this was source of bleeding, however one clip was placed with no active bleeding seen at end of procedure. Procedure: EGD with clip placement Anesthesia: other (pt intubated/sedated) Surgeon: MARCELLUS ROSENTHAL Estimated blood loss: none Pathology: none
[2021-06-10] MEDS ORDERED: LACTATED RINGERS 1,000 ML IV ONE ×2 (10:59→15:00)
[2021-06-10 11:05] LABS: Amphetamine Screen,Urine Negative; Benzodiazepines Screen,Urine Negative; Cocaine Screen,Urine Negative; Methadone Screen,Urine Negative; Opiate Screen,Urine Negative
[2021-06-10 11:13] LABS: Bacteria,Urine 1+ /HPF (Negative); Bilirubin,Urine NEG (Negative); Blood,Urine LG (Negative); Color,Urine Yellow (Yellow); Hyaline Casts,Urine 1 /LPF; Mucus,Urine FEW /HPF; Urobilinogen,Urine < 2.0 mg/dL (<2.0)
[2021-06-10 11:32] LABS: Cannabinoid Screen,Urine Positive
--- NOTE | 2021-06-10 12:37 | Operative Report ---
Operative Report Operative Report: Esophagogastroduodenoscopy Procedure Note with Clip placement Date of procedure: 06/10/2021 Endoscopist: Flip Jackson Pre-op diagnosis: Upper GI bleed Post-op diagnosis: Large amount of old appearing blood and clots in the gastric body. localized abnormal appearing mucosa with overlying blood clot in gastric body (s/p clip placement), tortuous esophagus Anesthesia: Patient intubated and sedated per ICU/ER Complications: No immediate complications Estimated blood loss: minimal Procedure: After consent was obtained from the patient's son over the phone, the patient was placed in the supine position. The olympus endoscope was inserted into the patient's mouth under direct vision, and advanced into the 2nd portion of the duodenum without difficulty. The patient tolerated the procedure well. The views of the mucosa were fair. Patient's vital signs were monitored continuously throughout the procedure. Findings: The esophagus was tortuous. No obvious source of bleeding or varices seen in the esophagus. There was a large amount of old appearing blood with clots in the gastric body and fundus which could be cleared (prevented visualization). There was adherent blood throughout the gastric body mucosa. Along the lesser curvature of the proximal gastric body, there was a localized area of inflamed/abnormal appearing mucosa with an adherent clot. The clot was not able to be removed with water irrigation and suctioning. One clip was placed in this area with no active bleeding seen at the end of the procedure. There was blood seen in the duodenum but no obvious bleeding source seen in the visualized portion of the duodenum. Impression: 1. Blood throughout the stomach (prevented visualization particularly in the gastric fundus and proximal gastric body) 2. Localized abnormal mucosa in the proximal gastric body with adherent clot s/p clip placement - unclear if this was the source of bleeding 3. No active bleeding seen during the procedure Recommendations: -continue IV PPI drip, monitor H/H and transfuse as needed to keep hgb > 7-8 range, and INR < 2. -if patient re-bleeds, recommend CTA if renal function allows.
--- NOTE | 2021-06-10 13:09 | Consultation ---
History of Present Illness Consult date: 06/10/21 History of present illness: 60 y/o female with out of hospital cardiac arrest, acute respiratory failure and possible GI bleed anemic on presentation. Patient is intubated and sedated and no further history can be obtained. Past History Past Medical History: No medical history (Unable to obtain further medical history given patient's clinical status) Medications and Allergies Allergies Allergy/AdvReac Type Severity Reaction Status Date / Time No Known Allergies Allergy Verified 05/22/16 22:45 Home Medications Medication Instructions Recorded Confirmed Last Taken Type No Known Home Medications [No 06/09/21 06/09/21 Unknown History Reported Home Medications] Active Meds: Active Medications Acetaminophen (Acetaminophen 325 Mg Tab) 650 mg PO Q4H PRN PRN Reason: Pain MILD(1-3)/Fever >100.5/GUTIERRES Acetaminophen (Acetaminophen 650 Mg Rect Supp) 975 mg RI Q4H PRN PRN Reason: Fever >101 Last Admin: 06/10/21 10:21 Dose: 975 mg Documented by: Dextrose (Dextrose 50% In Water (25gm) 50 Ml Syringe) 50 ml IV Q30MIN PRN; Protocol PRN Reason: Hypoglycemia Hydromorphone HCl (Hydromorphone 1 Mg/1 Ml Inj) 0.5 mg IV Q3H PRN PRN Reason: Pain , Severe (7-10) Last Admin: 06/09/21 11:40 Dose: 0.5 mg Documented by: Hydrophilic Ointment (Lip Therapy Vaseline) 1 applic TP Q2HR PRN PRN Reason: Dry Lips Norepinephrine (Levophed Drip 4 Mg/Ns 250 Ml) 4 mg in 250 mls @ 7.5 mls/hr IV TITR GABINO; Protocol Last Titration: 06/10/21 07:01 Dose: 0 mcg/min, 0 mls/hr Documented by: Octreotide Acetate 500 mcg/ (Sodium Chloride) 101 mls @ 5.05 mls/hr IV TITR GABINO; Protocol Stop: 06/12/21 12:00 Vasopressin 20 unit/ Sodium (Chloride) 101 mls @ 9.09 mls/hr IV TITR GABINO; Protocol Pantoprazole Sodium 80 mg/ (Sodium Chloride) 100 mls @ 10 mls/hr IV DIRECT GABINO Last Admin: 06/10/21 11:50 Dose: 8 mg/hr, 10 mls/hr Documented by: Vancomycin HCl (Vancomycin/Ns 1 Gm/250 Ml) 1 gm in 250 mls @ 166.667 mls/hr IV Q24H [facility] Potassium Phosphate 45 mmol/ (Sodium Chloride) 515 mls @ 85 mls/hr IV ONCE ONE Stop: 06/10/21 14:03 Last Admin: 06/10/21 08:39 Dose: 85 mls/hr Documented by: Insulin Human NPH (Insulin Nph, Human 100 Unit/1 Ml) 8 unit SUB-Q QDDIAB [facility] Last Admin: 06/10/21 08:45 Dose: Not Given Documented by: Morphine Sulfate (Morphine 2 Mg/1 Ml Inj) 2 mg IV Q4H PRN PRN Reason: Pain, Moderate (4-6) Multi-Ingred Cream/Lotion/Oil/Oint (Mineral Oil/Petrolatum, White Ophth Oint 3.5 Gm) 1 applic OU Q4HR PRN PRN Reason: Dry Eye(s) Sodium Chloride (Sodium Chloride 0.9% 10 Ml Flush Syringe) 10 ml IV BID [facility] Last Admin: 06/10/21 10:00 Dose: 10 ml Documented by: Sodium Chloride (Sodium Chloride 0.9% 10 Ml Flush Syringe) 10 ml IV PRN PRN PRN Reason: LINE FLUSH Physical Examination Vital signs: Vital Signs Pulse BP Pulse Ox 99 H 82/53 100 06/09/21 03:32 06/09/21 03:32 06/09/21 03:32 Results - Laboratory Findings CBC and BMP: 06/20/21 04:38 06/20/21 04:38 ABG ABG pH 7.323 pH Units (7.350-7.450) L 06/10/21 04:21 POC ABG pCO2 33.1 mmHg (32.0-48.0) 06/09/21 04:04 ABG pCO2 24.9 mm Hg 06/10/21 04:21 POC ABG pO2 116.6 mmHg (83-108) H 06/09/21 04:04 ABG pO2 152.9 mm Hg (80.0-90.0) H 06/10/21 04:21 POC ABG HCO3 5.6 06/09/21 04:04 ABG O2 Saturation 98.9 % (95.0-99.0) 06/10/21 04:21 PT/INR, D-dimer PT 26.8 Sec. (12.2-14.9) H 06/10/21 06:59 INR 2.42 (0.87-1.13) H 06/10/21 06:59 Abnormal lab findings: Abnormal Labs 06/09/21 06/09/21 06/09/21 03:27 03:42 03:59 WBC RBC 1.57 L Hgb 3.0 L* Hct 11.8 L* MCV 75 L MCH 19 L MCHC 26 L RDW 21.7 H Plt Count 109 L Lymph % (Auto) 9.7 L Towns % (Auto) 8.5 H Lymph # (Auto) 0.9 L [place] # (Auto) Seg Neutrophils % 81.2 H Seg Neuts % (Manual) Lymphocytes % (Manual) Seg Neutrophils # Seg Neutrophils # Man Lymphocytes # (Manual) PT INR APTT Fibrinogen ABG pH POC ABG pO2 ABG pO2 ABG HCO3 ABG Base Excess ABG Hemoglobin ABG Oxyhemoglobin ABG Potassium ABG Glucose Carboxyhemoglobin Sodium Potassium Chloride 95.2 L Carbon Dioxide 8 L* BUN 18 H Creatinine Glucose 540 H* POC Glucose Lactic Acid 28.20 H* Calcium 11.5 H Total Bilirubin AST 411 H ALT 106 H Lactate Dehydrogenase Total Protein 4.9 L Albumin 2.4 L Arterial Blood Glucose Urine WBC (Auto) Crossmatch 06/09/21 06/09/21 06/09/21 03:59 04:00 04:04 WBC RBC Hgb Hct MCV MCH MCHC RDW Plt Count Lymph % (Auto) Towns % (Auto) Lymph # (Auto) [place]s # (Auto) Seg Neutrophils % Seg Neuts % (Manual) Lymphocytes % (Manual) Seg Neutrophils # Seg Neutrophils # Man Lymphocytes # (Manual) PT 34.3 H INR 3.36 H APTT 66.3 H* Fibrinogen ABG pH 6.845 L POC ABG pO2 116.6 H ABG pO2 ABG HCO3 ABG Base Excess ABG Hemoglobin 2.6 L ABG Oxyhemoglobin 90.6 L ABG Potassium 3.0 L ABG Glucose 334 H Carboxyhemoglobin 1.8 H Sodium Potassium Chloride Carbon Dioxide BUN Creatinine Glucose POC Glucose Lactic Acid Calcium Total Bilirubin AST ALT Lactate Dehydrogenase Total Protein Albumin Arterial Blood Glucose 334 H Urine WBC (Auto) Crossmatch See Detail 06/09/21 06/09/21 06/09/21 05:16 11:42 11:44 WBC RBC Hgb Hct MCV MCH MCHC RDW Plt Count Lymph % (Auto) Towns % (Auto) Lymph # (Auto) [place]s # (Auto) Seg Neutrophils % Seg Neuts % (Manual) Lymphocytes % (Manual) Seg Neutrophils # Seg Neutrophils # Man Lymphocytes # (Manual) PT INR APTT Fibrinogen ABG pH POC ABG pO2 ABG pO2 ABG HCO3 ABG Base Excess ABG Hemoglobin ABG Oxyhemoglobin ABG Potassium ABG Glucose Carboxyhemoglobin Sodium Potassium Chloride 109.5 H Carbon Dioxide 4 L* BUN 19 H Creatinine Glucose 158 H POC Glucose 191 H Lactic Acid 25.20 H* Calcium 7.8 L D Total Bilirubin AST ALT Lactate Dehydrogenase 2208 H Total Protein Albumin Arterial Blood Glucose Urine WBC (Auto) Crossmatch 06/09/21 06/09/21 06/10/21 12:27 12:27 04:21 WBC 14.2 H RBC 3.58 L Hgb 8.9 L D Hct 29.9 L D MCV MCH 25 L MCHC RDW 22.0 H Plt Count 94 L Lymph % (Auto) Towns % (Auto) Lymph # (Auto) [place] # (Auto) Seg Neutrophils % Seg Neuts % (Manual) 87.0 H Lymphocytes % (Manual) 5.0 L Seg Neutrophils # Seg Neutrophils # Man 12.4 H Lymphocytes # (Manual) 0.7 L PT 36.0 H INR 3.58 H APTT 52.6 H Fibrinogen 83 L* ABG pH 7.323 L POC ABG pO2 ABG pO2 152.9 H ABG HCO3 12.6 L ABG Base Excess -12.0 L ABG Hemoglobin 9.2 L ABG Oxyhemoglobin ABG Potassium ABG Glucose Carboxyhemoglobin Sodium Potassium Chloride Carbon Dioxide BUN Creatinine Glucose POC Glucose Lactic Acid Calcium Total Bilirubin AST ALT Lactate Dehydrogenase Total Protein Albumin Arterial Blood Glucose Urine WBC (Auto) Crossmatch 06/10/21 06/10/21 06/10/21 04:27 04:27 06:59 WBC 14.1 H RBC Hgb Hct MCV MCH 25 L MCHC RDW 20.0 H Plt Count 99 L Lymph % (Auto) 4.2 L [place]s % (Auto) 8.6 H Lymph # (Auto) 0.6 L [place]s # (Auto) 1.2 H Seg Neutrophils % 86.6 H Seg Neuts % (Manual) Lymphocytes % (Manual) Seg Neutrophils # 12.2 H Seg Neutrophils # Man Lymphocytes # (Manual) PT INR APTT Fibrinogen ABG pH POC ABG pO2 ABG pO2 ABG HCO3 ABG Base Excess ABG Hemoglobin ABG Oxyhemoglobin ABG Potassium ABG Glucose Carboxyhemoglobin Sodium 146 H Potassium 3.4 L Chloride 115.2 H Carbon Dioxide 14 L D BUN 30 H Creatinine 1.9 H D Glucose 122 H POC Glucose Lactic Acid 4.60 H* Calcium 7.4 L Total Bilirubin 7.00 H AST 2708 H ALT 522 H Lactate Dehydrogenase Total Protein 4.8 L Albumin 2.4 L Arterial Blood Glucose Urine WBC (Auto) Crossmatch 06/10/21 06/10/21 06/10/21 06:59 08:23 08:47 WBC RBC Hgb Hct MCV MCH MCHC RDW Plt Count Lymph % (Auto) [place]s % (Auto) Lymph # (Auto) [place] # (Auto) Seg Neutrophils % Seg Neuts % (Manual) Lymphocytes % (Manual) Seg Neutrophils # Seg Neutrophils # Man Lymphocytes # (Manual) PT 26.8 H INR 2.42 H APTT Fibrinogen ABG pH POC ABG pO2 ABG pO2 ABG HCO3 ABG Base Excess ABG Hemoglobin ABG Oxyhemoglobin ABG Potassium ABG Glucose Carboxyhemoglobin Sodium Potassium Chloride Carbon Dioxide BUN Creatinine Glucose POC Glucose 121 H Lactic Acid Calcium Total Bilirubin AST ALT Lactate Dehydrogenase Total Protein Albumin Arterial Blood Glucose Urine WBC (Auto) 23.0 H Crossmatch 06/10/21 11:47 WBC RBC Hgb Hct MCV MCH MCHC RDW Plt Count Lymph % (Auto) [place]s % (Auto) Lymph # (Auto) [place] # (Auto) Seg Neutrophils % Seg Neuts % (Manual) Lymphocytes % (Manual) Seg Neutrophils # Seg Neutrophils # Man Lymphocytes # (Manual) PT INR APTT Fibrinogen ABG pH POC ABG pO2 ABG pO2 ABG HCO3 ABG Base Excess ABG Hemoglobin ABG Oxyhemoglobin ABG Potassium ABG Glucose Carboxyhemoglobin Sodium Potassium Chloride Carbon Dioxide BUN Creatinine Glucose POC Glucose Lactic Acid 4.40 H* Calcium Total Bilirubin AST ALT Lactate Dehydrogenase Total Protein Albumin Arterial Blood Glucose Urine WBC (Auto) Crossmatch Assessment and Plan 60 y/o female with cardiac arrest, intubated found to have UPPER GI bleed but no exact source of bleeding found 1. Discontinue all sedation 2. Attempt PSV and then extubate 3. Follow up GI recs 4. Will continue to follow, with serial H/H's. CCT 31 minutes.
[2021-06-10] MEDS: VANCOMYCIN/NS 1 GM/250 ML 1 GM/250 ML BAG IV SCH (15:01)
--- NOTE | 2021-06-10 17:23 | Progress Note ---
Assessment and Plan Assessment and plan: The patient is a 60-year-old female with unknown past medical history who was found down at home and required CPR before ROSC was achieved that was likely PEA arrest secondary to presumed acute upper GI bleed. #Acute upper GI bleed-resolved #Acute blood loss anemia-resolved #Hemorrhagic shock requiring pressors -Etiology unknown -Hemoglobin 3.0-->10.9 (after transfusing 4-5 units packed RBCs) -Status post normal saline 500 cc and 3 units packed RBC transfused for volume resuscitation. Will continue to transfuse as needed if hemoglobin is less than 8. -Continue on pantoprazole gtt. discontinue octreotide gtt. -GI on board; appreciate recs. S/P upper endoscopy on 06/10/2021 resulting in clipping of presumed location of bleed. -Continue H/H every 12 hours -Continue ceftriaxone 1 g every 24 hours and vancomycin 1 g every 12 hours -Weaning off Levophed and vasopressin as tolerated -Pending blood culture results #Likely PEA arrest -ROSC achieved -Placing cooling blankets on patient; hospital does not have hypothermia protocol. -Ordered Tylenol 650 mg to be given if temperature greater than 92 Fahrenheit -Continue sedation with ketamine with RASS goal of -2; will evaluate need for sedation daily #Metabolic acidosis with gap-improving #Lactic acidosis-improving -AB.3/ on 30% FiO2, lactic acid 4.4 -Lactic acidosis likely secondary to PEA arrest and worsened by continued upper GI bleed -Bolused LR; Pending repeat lactic acid -We will continue to monitor #Coagulopathy -INR 2.42; s/p 2 units FFP -Unknown if patient is taking therapeutic anticoagulation; however, could be secondary to acute liver injury in the setting of shock -We will continue to monitor and consider vitamin K administration if INR continues to increase significantly #Elevated transaminases -AST 2708, ALT 522 -Unknown if elevation is due to acute shock versus prolonged alcohol history, especially given the increased ratio of AST to ALT. -We will continue to monitor #Acute hypoxic respiratory failure #Intubation -Currently intubated -Plan for near extubation -Consulting pulmonology; pending recs #Hyperglycemia- -Originally presented with hypoglycemia of 20 and required D50 x2 resulting in hyperglycemia -Blood glucose goal of 140-180 -Continue NPH 8 units every 8 with low SSI #Core metrics -Ordering Esparza placement -Keep head of bed at 30 degrees -Patient currently n.p.o. Disposition Plan: Continue medical manage Total Time Spent with Patient (Minutes): 45 - Patient Problems (1) Cardiac arrest Onset Date: ~06/09/21 Current Visit: Yes Status: Acute (2) GI bleed Onset Date: ~06/09/21 Current Visit: Yes Status: Acute Qualifiers: GI bleed type/associated pathology: unspecified gastrointestinal hemorrhage type Qualified Code(s): K92.2 - Gastrointestinal hemorrhage, unspecified (3) Hypotension Onset Date: ~06/09/21 Current Visit: Yes Status: Acute Qualifiers: Hypotension type: unspecified hypotension type Qualified Code(s): I95.9 - Hypotension, unspecified (4) Lactic acidosis Onset Date: ~06/09/21 Current Visit: Yes Status: Acute History Interval history: Patient was pending possible transfer to outside hospital for HLOC; however, no hospital had available ICU beds. The decision was made to have the patient undergo upper endoscopy on 06/10/2021. The patient continue to be monitored closely in the ED. Hospitalist Physical - Constitutional Vitals: Temp Pulse Resp BP Pulse Ox 90.8 F L 68 22 92/65 100 06/10/21 15:33 06/10/21 17:00 06/10/21 17:00 06/10/21 17:00 06/10/21 17:00 General appearance: Present: no acute distress (Currently sedated) - EENT Eyes: Present: PERRL, EOM intact ENT: dentition normal, other (Intubation tube currently in place unable to examine full oral cavity) - Neck Neck: Present: supple, other (Central line in left IJ) - Respiratory Respiratory effort: normal (Patient currently ventilated) Respiratory: negative: CTA, diminished, rales, rhonchi, wheezing - Cardiovascular Rhythm: regular Heart Sounds: Present: S1 & S2 - Extremities Extremities: no ischemia, pulses intact, pulses symmetrical, No edema, normal temperature, normal color Peripheral Pulses: within normal limits - Abdominal General gastrointestinal: soft, non-tender, non-distended, normal bowel sounds - Integumentary Integumentary: Present: clear, warm, dry - Psychiatric Psychiatric: other (Patient currently sedated unable to assess) - Neurologic Neurologic: other (Patient currently sedated unable to assess) - Allied Health Allied health notes reviewed: nursing HEART Score - HEART Score EKG: Normal Age: 45-65 Troponin: Troponin T < 0.010 ng/mL (0.00-0.029) 06/09/21 03:27 - Critical Actions Critical Actions: 4-6 pts:12-16.6% risk of adverse cardiac event. Should be admitted Results - Labs CBC & Chem 7: 06/10/21 04:27 06/10/21 04:27 Labs: Laboratory Last Values WBC 14.1 K/mm3 (4.5-11.0) H 06/10/21 04:27 RBC 4.28 M/mm3 (3.65-5.03) 06/10/21 04:27 Hgb 10.9 gm/dl (10.1-14.3) 06/10/21 04:27 Hct 33.9 % (30.3-42.9) 06/10/21 04:27 MCV 79 fl (79-97) 06/10/21 04:27 MCH 25 pg (28-32) L 06/10/21 04:27 MCHC 32 % (30-34) 06/10/21 04:27 RDW 20.0 % (13.2-15.2) H 06/10/21 04:27 Plt Count 99 K/mm3 (140-440) L 06/10/21 04:27 Lymph % (Auto) 4.2 % (13.4-35.0) L 06/10/21 04:27 [place] % (Auto) 8.6 % (0.0-7.3) H 06/10/21 04:27 Eos % (Auto) 0.5 % (0.0-4.3) 06/10/21 04:27 Baso % (Auto) 0.1 % (0.0-1.8) 06/10/21 04:27 Lymph # (Auto) 0.6 K/mm3 (1.2-5.4) L 06/10/21 04:27 [place] # (Auto) 1.2 K/mm3 (0.0-0.8) H 06/10/21 04:27 Eos # (Auto) 0.1 K/mm3 (0.0-0.4) 06/10/21 04:27 Baso # (Auto) 0.0 K/mm3 (0.0-0.1) 06/10/21 04:27 Add Manual Diff Complete 06/09/21 12:27 Total Counted 100 06/09/21 12:27 Seg Neutrophils % 86.6 % (40.0-70.0) H 06/10/21 04:27 Seg Neuts % (Manual) 87.0 % (40.0-70.0) H 06/09/21 12:27 Band Neutrophils % 4.0 % 06/09/21 12:27 Lymphocytes % (Manual) 5.0 % (13.4-35.0) L 06/09/21 12:27 Monocytes % (Manual) 4.0 % (0.0-7.3) 06/09/21 12: Nucleated RBC % Not Reportable 06/09/21 12: Seg Neutrophils # 12.2 K/mm3 (1.8-7.7) H 06/10/21 04:27 Seg Neutrophils # Man 12.4 K/mm3 (1.8-7.7) H 06/09/21 12:27 Band Neutrophils # 0.6 K/mm3 06/09/21 12:27 Lymphocytes # (Manual) 0.7 K/mm3 (1.2-5.4) L 06/09/21 12:27 Abs React Lymphs (Man) 0.0 K/mm3 06/09/21 12: Monocytes # (Manual) 0.6 K/mm3 (0.0-0.8) 06/09/21 12: Eosinophils # (Manual) 0.0 K/mm3 (0.0-0.4) 06/09/21 12: Basophils # (Manual) 0.0 K/mm3 (0.0-0.1) 06/09/21 12:27 Metamyelocytes # 0.0 K/mm3 06/09/21 12:27 Myelocytes # 0.0 K/mm3 06/09/21 12: Promyelocytes # 0.0 K/mm3 06/09/21 12: Blast Cells # 0.0 K/mm3 06/09/21 12:27 WBC Morphology Not Reportable 06/09/21 12:27 WBC Morphology TNR 06/09/21 12:27 Hypersegmented Neuts Not Reportable 06/09/21 12: Hyposegmented Neuts Not Reportable 06/09/21 12:27 Hypogranular Neuts Not Reportable 06/09/21 12:27 Smudge Cells Not Reportable 06/09/21 12:27 Toxic Granulation Not Reportable 06/09/21 12:27 Toxic Vacuolation Not Reportable 06/09/21 12:27 Dohle Bodies Not Reportable 06/09/21 12:27 Pelger-Huet Anomaly Not Reportable 06/09/21 12:27 Gui Rods Not Reportable 06/09/21 12:27 Platelet Estimate Not Reportable 06/09/21 12:27 Clumped Platelets Not Reportable 06/09/21 12:27 Plt Clumps, EDTA Not Reportable 06/09/21 12:27 Large Platelets Not Reportable 06/09/21 12:27 Giant Platelets Not Reportable 06/09/21 12:27 Platelet Satelliting Not Reportable 06/09/21 12:27 Plt Morphology Comment Not Reportable 06/09/21 12:27 RBC Morphology Not Reportable 06/09/21 12:27 Dimorphic RBCs Not Reportable 06/09/21 12:27 Polychromasia Not Reportable 06/09/21 12:27 Hypochromasia 2+ 06/09/21 12:27 Poikilocytosis 1+ 06/09/21 12:27 Anisocytosis 2+ 06/09/21 12:27 Microcytosis Not Reportable 06/09/21 12:27 Macrocytosis Not Reportable 06/09/21 12:27 Spherocytes Not Reportable 06/09/21 12:27 Pappenheimer Bodies Not Reportable 06/09/21 12:27 Sickle Cells Not Reportable 06/09/21 12:27 Target Cells Not Reportable 06/09/21 12:27 Tear Drop Cells Not Reportable 06/09/21 12:27 Ovalocytes Not Reportable 06/09/21 12:27 Helmet Cells Not Reportable 06/09/21 12:27 [place] Bodies Not Reportable 06/09/21 12:27 [place] Rings Not Reportable 06/09/21 12:27 Agar Cells 1+ 06/09/21 12:27 Bite Cells Not Reportable 06/09/21 12:27 Crenated Cell Not Reportable 06/09/21 12:27 Elliptocytes Few 06/09/21 12:27 Acanthocytes (Spur) Not Reportable 06/09/21 12:27 Rouleaux Not Reportable 06/09/21 12:27 Hemoglobin C Crystals Not Reportable 06/09/21 12:27 Schistocytes Not Reportable 06/09/21 12:27 Malaria parasites Not Reportable 06/09/21 12:27 Narendra Bodies Not Reportable 06/09/21 12:27 Hem Pathologist Commnt No 06/09/21 12:27 PT 26.8 Sec. (12.2-14.9) H 06/10/21 06:59 INR 2.42 (0.87-1.13) H 06/10/21 06:59 APTT 52.6 Sec. (24.2-36.6) H 06/09/21 12:27 Fibrinogen 83 mg/dl (211-480) L* 06/09/21 12:27 ABG pH 7.323 pH Units (7.350-7.450) L 06/10/21 04:21 POC ABG pCO2 33.1 mmHg (32.0-48.0) 06/09/21 04:04 ABG pCO2 24.9 mm Hg 06/10/21 04:21 POC ABG pO2 116.6 mmHg (83-108) H 06/09/21 04:04 ABG pO2 152.9 mm Hg (80.0-90.0) H 06/10/21 04:21 POC ABG HCO3 5.6 06/09/21 04:04 ABG HCO3 12.6 mmol/L (20.0-26.0) L 06/10/21 04:21 ABG O2 Saturation 98.9 % (95.0-99.0) 06/10/21 04:21 ABG O2 Content 12.8 (0.0-44) 06/10/21 04:21 POC ABG Base Excess -24.6 06/09/21 04:04 ABG Base Excess -12.0 mmol/L (-2.0-3.0) L 06/10/21 04:21 ABG Hemoglobin 9.2 gm/dl (12.0-16.0) L 06/10/21 04:21 ABG Oxyhemoglobin 90.6 (94-98) L 06/09/21 04:04 ABG Carboxyhemoglobin 1.6 % (0.0-5.0) 06/10/21 04:21 ABG Methemoglobin 0.6 % (0.0-1.5) 06/10/21 04:21 ABG Sodium 141.1 mmol/L (136.0-145.0) 06/09/21 04:04 ABG Potassium 3.0 mmol/L (3.40-4.50) L 06/09/21 04:04 ABG Chloride 104.0 mmol/L (98-107) 06/09/21 04:04 ABG Glucose 334 mg/dL (65-95) H 06/09/21 04:04 Oxyhemoglobin 96.7 % (95.0-99.0) 06/10/21 04:21 Carboxyhemoglobin 1.8 (0.5-1.5) H 06/09/21 04:04 FiO2 30 % 06/10/21 04:21 FiO2 % 100.0 06/09/21 04:04 Sodium 146 mmol/L (137-145) H 06/10/21 04:27 Potassium 3.4 mmol/L (3.6-5.0) L 06/10/21 04:27 Chloride 115.2 mmol/L (98-107) H 06/10/21 04:27 Carbon Dioxide 14 mmol/L (22-30) L D 06/10/21 04:27 Anion Gap 20 mmol/L 06/10/21 04:27 BUN 30 mg/dL (7-17) H 06/10/21 04:27 Creatinine 1.9 mg/dL (0.6-1.2) H D 06/10/21 04:27 Estimated GFR 33 ml/min 06/10/21 04:27 BUN/Creatinine Ratio 16 % 06/10/21 04:27 Glucose 122 mg/dL (65-100) H 06/10/21 04:27 POC Glucose 121 mg/dL (70-105) H 06/10/21 08:23 Lactic Acid 4.40 mmol/L (0.7-2.0) H* 06/10/21 11:47 Calcium 7.4 mg/dL (8.4-10.2) L 06/10/21 04:27 Total Bilirubin 7.00 mg/dL (0.1-1.2) H 06/10/21 04:27 AST 2708 units/L (5-40) H 06/10/21 04:27 ALT 522 units/L (7-56) H 06/10/21 04:27 Alkaline Phosphatase 93 units/L (35-129) 06/10/21 04:27 Lactate Dehydrogenase 2208 units/L (91-180) H 06/09/21 11:44 Troponin T < 0.010 ng/mL (0.00-0.029) 06/09/21 03:27 Total Protein 4.8 g/dL (6.3-8.2) L 06/10/21 04:27 Albumin 2.4 g/dL (3.9-5) L 06/10/21 04:27 Albumin/Globulin Ratio 1.0 % 06/10/21 04:27 Arterial Blood Glucose 334 mg/dL (65-95) H 06/09/21 04:04 Urine Color Yellow (Yellow) 06/10/21 08:47 Urine Turbidity Cloudy (Clear) 06/10/21 08:47 Urine pH 5.0 (5.0-7.0) 06/10/21 08:47 Ur Specific Kimberly 1.016 (1.003-1.030) 06/10/21 08:47 Urine Protein 100 mg/dl mg/dL (Negative) 06/10/21 08:47 Urine Glucose (UA) 150 mg/dL (Negative) 06/10/21 08:47 Urine Ketones Neg mg/dL (Negative) 06/10/21 08:47 Urine Blood Lg (Negative) 06/10/21 08:47 Urine Nitrite Neg (Negative) 06/10/21 08:47 Urine Bilirubin Neg (Negative) 06/10/21 08:47 Urine Urobilinogen < 2.0 mg/dL (<2.0) 06/10/21 08:47 Ur Leukocyte Esterase Tr (Negative) 06/10/21 08:47 Urine WBC (Auto) 23.0 /HPF (0.0-6.0) H 06/10/21 08:47 Urine RBC (Auto) 67.0 /HPF (0.0-6.0) 06/10/21 08:47 U Epithel Cells (Auto) 5.0 /HPF (0-13.0) 06/10/21 08:47 Urine Bacteria (Auto) 1+ /HPF (Negative) 06/10/21 08:47 Ur Transition Epith Cell 2 /HPF 06/10/21 08:47 Hyaline Casts 1 /LPF 06/10/21 08:47 Urine Mucus Few /HPF 06/10/21 08:47 Urine Opiates Screen Negative 06/10/21 08:47 Urine Methadone Screen Negative 06/10/21 08:47 Ur Barbiturates Screen Negative 06/10/21 08:47 Ur Phencyclidine Scrn Negative 06/10/21 08:47 Ur Amphetamines Screen Negative 06/10/21 08:47 U Benzodiazepines Scrn Negative 06/10/21 08:47 Urine Cocaine Screen Negative 06/10/21 08:47 U Marijuana (THC) Screen Positive 06/10/21 08:47 Drugs of Abuse Note Disclamer 06/10/21 08:47 Coronavirus (PCR) Negative (Negative) 06/09/21 13:12 Blood Type B POSITIVE 06/09/21 04:00 Antibody Screen Negative 06/09/21 04:00 Crossmatch See Detail 06/09/21 04:00 Microbiology: Microbiology 06/09/21 06:15 Tracheal Aspirate Sputum Culture - Preliminary 06/09/21 03:59 Peripheral/Venous Blood Culture - Preliminary NO GROWTH AFTER 24 HOURS 06/09/21 03:42 Peripheral/Venous Blood Culture - Preliminary Active Medications - Current Medications Current Medications: Generic Name Dose Route Start Last Admin Trade Name Freq PRN Reason Stop Dose Admin Acetaminophen 650 mg 06/09/21 11:13 Acetaminophen 325 Mg Tab PO Q4H PRN Pain MILD(1-3)/Fever >100.5/GUTIERRES Acetaminophen 975 mg 06/10/21 09:03 06/10/21 10:21 Acetaminophen 650 Mg Rect Supp [place] 975 mg Q4H PRN Administration Fever >101 Dextrose 50 ml 06/09/21 11:13 Dextrose 50% In Water (25gm) 50 Ml Syringe IV Q30MIN PRN Hypoglycemia Protocol Hydromorphone HCl 0.5 mg 06/09/21 11:13 06/09/21 11:40 Hydromorphone 1 Mg/1 Ml Inj IV 0.5 mg Q3H PRN Administration Pain , Severe (7-10) Hydrophilic Ointment 1 applic 06/09/21 03:26 Lip Therapy Vaseline TP Q2HR PRN Dry Lips Norepinephrine 4 mg in 250 mls @ 7.5 mls/hr 06/09/21 04:00 06/10/21 07:01 Levophed Drip 4 Mg/Ns 250 Ml IV 0 mcg/min TITR GABINO 0 mls/hr Titration Protocol 2 MCG/MIN Octreotide Acetate 500 mcg/ 101 mls @ 5.05 mls/hr 06/09/21 12:00 06/09/21 22:00 Sodium Chloride IV 06/12/21 12:00 25 mcg/hr TITR GABINO 5.05 mls/hr Administration Protocol 25 MCG/HR Vasopressin 20 unit/ Sodium 101 mls @ 9.09 mls/hr 06/09/21 12:00 06/10/21 07:00 Chloride IV 0.03 units/min TITR GABINO 9.09 mls/hr Administration Protocol 0.03 UNITS/MIN Pantoprazole Sodium 80 mg/ 100 mls @ 10 mls/hr 06/09/21 12:00 06/10/21 11:50 Sodium Chloride IV 8 mg/hr DIRECT GABINO 10 mls/hr Administration 8 MG/HR Vancomycin HCl 1 gm in 250 mls @ 166.667 mls/hr 06/10/21 12:00 06/10/21 16:31 Vancomycin/Ns 1 Gm/250 Ml IV Infused Q24H GABINO Infusion Insulin Human NPH 8 unit 06/09/21 14:00 06/10/21 08:45 Insulin Nph, Human 100 Unit/1 Ml SUB-Q Not Given QDDIAB GABINO Morphine Sulfate 2 mg 06/09/21 11:13 Morphine 2 Mg/1 Ml Inj IV Q4H PRN Pain, Moderate (4-6) Multi-Ingred Cream/Lotion/Oil/Oint 1 applic 06/09/21 03:26 Mineral Oil/Petrolatum, White Ophth Oint 3.5 Gm OU Q4HR PRN Dry Eye(s) Sodium Chloride 10 ml 06/09/21 22:00 06/10/21 10:00 Sodium Chloride 0.9% 10 Ml Flush Syringe IV 10 ml BID GABINO Administration Sodium Chloride 10 ml 06/09/21 11:13 Sodium Chloride 0.9% 10 Ml Flush Syringe IV PRN PRN LINE FLUSH
[2021-06-10] MEDS ORDERED: SODIUM CHLORIDE 0.9% 1000 ML 1,000 ML ONE (23:13)
[2021-06-11 00:03] LABS: Hematocrit 30.9 % (30.3-42.9); Hemoglobin 10.1 gm/dl (10.1-14.3)
[2021-06-11 05:42] LABS: ABG Base Excess -10.1 mmol/L (-2.0-3.0); ABG Methemoglobin 0.3 % (0.0-1.5); ABG Oxygen Saturation 98.9 % (95.0-99.0); ABG PH 7.409 pH Units (7.350-7.450); ABG PO2 148.9 mm Hg (80.0-90.0)
--- NOTE | 2021-06-11 06:40 | XRay Report ---
CHEST 1 VIEW INDICATION / CLINICAL INFORMATION: follow up respiratory failure STUDY TIME: 526 COMPARISON: 06/10/2021 FINDINGS: SUPPORT DEVICES: Stable HEART / MEDIASTINUM: Stable LUNGS / PLEURA: Increasing diffuse interstitial markings may represent interstitial edema bilaterally . No pneumothorax. ADDITIONAL FINDINGS: No significant additional findings. Signer Name: Brayan Armenta MD Signed: 06/11/2021 6:35 AM Workstation Name: [id number]
[2021-06-11] MEDS: PANTOPRAZOLE 80 MG in SODIUM CHLORIDE 0.9% 100 ML IV SCH ×2 (07:48→19:00)
[2021-06-11] MEDS ORDERED: LACTATED RINGERS 1,000 ML IV ONE ×2 (08:16→13:45)
[2021-06-11] MEDS ORDERED: WATER FOR INJ STERILE ONE (08:18)
[2021-06-11] MEDS: INSULIN NPH, HUMAN 100 UNIT/1 ML SUB-Q SCH (09:27)
[2021-06-11 11:14] LABS: INR 1.98 (0.87-1.13)
[2021-06-11 11:20] LABS: Hematocrit 26.3 % (30.3-42.9); Hemoglobin 8.5 gm/dl (10.1-14.3); Mean Corpuscular HGB Conc 32 % (30-34); Mean Corpuscular Volume 78 fl (79-97); Platelet Count 97 K/mm3 (140-440); Red Blood Count 3.38 M/mm3 (3.65-5.03); Red Cell Distribution Width 20.6 % (13.2-15.2)
[2021-06-11 11:40] LABS: Albumin 2.2 g/dL (3.9-5)
[2021-06-11 11:44] LABS: Calcium 5.9 mg/dL (8.4-10.2)
[2021-06-11] MEDS: VANCOMYCIN/NS 1 GM/250 ML 1 GM/250 ML BAG IV SCH (12:47)
[2021-06-11] MEDS ORDERED: MAGNESIUM SULFATE 1 GM in SODIUM CHLORIDE 0.9% 50 ML IV ONE (14:00)
[2021-06-11] MEDS ORDERED: CALCIUM GLUCONATE 2,000 MG in SODIUM CHLORIDE 0.9% 100 ML IV ONE (14:00)
--- NOTE | 2021-06-11 14:27 | Progress Note ---
Assessment and Plan Assessment and plan: The patient is a 60-year-old female with unknown past medical history who was found down at home and required CPR before ROSC was achieved that was likely PEA arrest secondary to presumed acute upper GI bleed. #Acute upper GI bleed-resolved #Acute blood loss anemia-resolved #Hemorrhagic shock requiring pressors-resolved -Etiology unknown -Hemoglobin 3.0-->10.9 (after transfusing 4-5 units packed RBCs) -Status post normal saline 500 cc and 3 units packed RBC transfused for volume resuscitation. Will continue to transfuse as needed if hemoglobin is less than 8. -Continue on pantoprazole gtt. -GI on board; appreciate recs. S/P upper endoscopy on 06/10/2021 resulting in c lipping of presumed location of bleed. -Continue H/H every 12 hours -Discontinue ceftriaxone 1 g every 24 hours and vancomycin 1 g every 12 hours; negative growth on blood culture x48 hours. -Discontinue Levophed and vasopressin. #Likely prerenal acute kidney injury-oliguric -Creatinine 3.2 (baseline unknown) -Limited renal output despite multiple fluid challenges (LR bolus x2) -Nephrology consulted; pending recs -Renally dosing medications. Avoiding nephrotoxic medications. -Ordering UA. #Likely PEA arrest -ROSC achieved -Slowly rewarming patient. -All sedation has been weaned. -Consulted neurology; pending recs. #Metabolic acidosis with gap-improving #Lactic acidosis-resolved -AB.4//148; FiO2 30% -Lactic acidosis likely secondary to PEA arrest and worsened by continued upper GI bleed -Bolused LRx2. Lactic acid 1.7 -We will continue to monitor #Coagulopathy-improving -INR 1.8 -Unknown if patient is taking therapeutic anticoagulation; however, could be secondary to acute liver injury in the setting of shock -We will continue to monitor and consider vitamin K administration if INR continues to increase significantly #Elevated transaminases -AST 2252, ALT 540 -Unknown if elevation is due to acute shock versus prolonged alcohol history, especially given the increased ratio of AST to ALT. -Can consider NAC administration -We will continue to monitor #Acute hypoxic respiratory failure #Intubation -Currently intubated -Plan for near extubation -Consulting pulmonology; pending recs #Hypocalcemia -Calcium of 5.9 -Repleted. Continue to monitor #Hyperglycemia-resolved -Originally presented with hypoglycemia of 20 and required D50 x2 resulting in hyperglycemia -Blood glucose goal of 140-180 -Continue NPH 8 units every 8 with low SSI #Core metrics -Continue Esparza placement -Keep head of bed at 30 degrees -Patient currently n.p.o. -Nutrition consulted; appreciate recs The high probability of a clinically significant, sudden or life threatening deterioration of the [cardiac, respiratory, renal] system(s) required my full and direct attention, intervention and personal management. The aggregate critical care time was [60] minutes. This time is in addition to time spent performing reported procedures but includes the following: [x] Data Review and interpretation [x] Patient assessment and monitoring of vital signs [x] Documentation [x] Medication orders and management Disposition Plan: Continue medical manage Total Time Spent with Patient (Minutes): 60 - Patient Problems (1) Cardiac arrest Onset Date: ~06/09/21 Current Visit: Yes Status: Acute (2) GI bleed Onset Date: ~06/09/21 Current Visit: Yes Status: Acute Qualifiers: GI bleed type/associated pathology: unspecified gastrointestinal hemorrhage type Qualified Code(s): K92.2 - Gastrointestinal hemorrhage, unspecified (3) Hypotension Onset Date: ~06/09/21 Current Visit: Yes Status: Acute Qualifiers: Hypotension type: unspecified hypotension type Qualified Code(s): I95.9 - Hypotension, unspecified (4) Lactic acidosis Onset Date: ~06/09/21 Current Visit: Yes Status: Acute History Interval history: No acute events overnight Hospitalist Physical - Constitutional Vitals: Temp Pulse Resp BP Pulse Ox 95 F L 80 18 122/87 100 06/11/21 13:56 06/11/21 13:46 06/11/21 13:46 06/11/21 13:46 06/11/21 13:46 General appearance: Present: no acute distress (Currently sedated) - EENT Eyes: Present: PERRL ENT: dentition normal, other (Currently intubated unable to examine oral mucosa. Unable to assess hearing.) - Neck Neck: Present: supple, normal ROM, other (Central line and right IJ) - Respiratory Respiratory effort: normal (Intubated) - Cardiovascular Rhythm: regular Heart Sounds: Present: S1 & S2 - Extremities Extremities: no ischemia, pulses intact, pulses symmetrical, No edema, normal color Peripheral Pulses: within normal limits - Abdominal General gastrointestinal: soft, non-tender, non-distended, normal bowel sounds - Integumentary Integumentary: Present: clear, warm, dry - Psychiatric Psychiatric: other (Unable to assess given current medical status) - Neurologic Neurologic: other - Allied Health Allied health notes reviewed: nursing HEART Score - HEART Score History: Moderately suspicious EKG: Normal Age: 45-65 Troponin: Troponin T < 0.010 ng/mL (0.00-0.029) 06/09/21 03:27 - Critical Actions Critical Actions: 4-6 pts:12-16.6% risk of adverse cardiac event. Should be admitted Results - Labs CBC & Chem 7: 06/11/21 10:38 06/11/21 12:15 Labs: Laboratory Last Values WBC 12.6 K/mm3 (4.5-11.0) H 06/11/21 10:38 RBC 3.38 M/mm3 (3.65-5.03) L 06/11/21 10:38 Hgb 8.5 gm/dl (10.1-14.3) L 06/11/21 10:38 Hct 26.3 % (30.3-42.9) L 06/11/21 10:38 MCV 78 fl (79-97) L 06/11/21 10:38 MCH 25 pg (28-32) L 06/11/21 10:38 MCHC 32 % (30-34) 06/11/21 10:38 RDW 20.6 % (13.2-15.2) H 06/11/21 10:38 Plt Count 97 K/mm3 (140-440) L 06/11/21 10:38 Lymph % (Auto) 4.2 % (13.4-35.0) L 06/10/21 04:27 [place] % (Auto) 8.6 % (0.0-7.3) H 06/10/21 04:27 Eos % (Auto) 0.5 % (0.0-4.3) 06/10/21 04:27 Baso % (Auto) 0.1 % (0.0-1.8) 06/10/21 04:27 Lymph # (Auto) 0.6 K/mm3 (1.2-5.4) L 06/10/21 04:27 [place] # (Auto) 1.2 K/mm3 (0.0-0.8) H 06/10/21 04:27 Eos # (Auto) 0.1 K/mm3 (0.0-0.4) 06/10/21 04:27 Baso # (Auto) 0.0 K/mm3 (0.0-0.1) 06/10/21 04:27 Add Manual Diff Complete 06/09/21 12: Total Counted 100 06/09/21 12:27 Seg Neutrophils % 86.6 % (40.0-70.0) H 06/10/21 04:27 Seg Neuts % (Manual) 87.0 % (40.0-70.0) H 06/09/21 12:27 Band Neutrophils % 4.0 % 06/09/21 12: Lymphocytes % (Manual) 5.0 % (13.4-35.0) L 06/09/21 12: Monocytes % (Manual) 4.0 % (0.0-7.3) 06/09/21 12: Nucleated RBC % Not Reportable 06/09/21 12:27 Seg Neutrophils # 12.2 K/mm3 (1.8-7.7) H 06/10/21 04:27 Seg Neutrophils # Man 12.4 K/mm3 (1.8-7.7) H 06/09/21 12:27 Band Neutrophils # 0.6 K/mm3 06/09/21 12:27 Lymphocytes # (Manual) 0.7 K/mm3 (1.2-5.4) L 06/09/21 12:27 Abs React Lymphs (Man) 0.0 K/mm3 06/09/21 12:27 Monocytes # (Manual) 0.6 K/mm3 (0.0-0.8) 06/09/21 12: Eosinophils # (Manual) 0.0 K/mm3 (0.0-0.4) 06/09/21 12:27 Basophils # (Manual) 0.0 K/mm3 (0.0-0.1) 06/09/21 12: Metamyelocytes # 0.0 K/mm3 06/09/21 12: Myelocytes # 0.0 K/mm3 06/09/21 12: Promyelocytes # 0.0 K/mm3 06/09/21 12:27 Blast Cells # 0.0 K/mm3 06/09/21 12:27 WBC Morphology Not Reportable 06/09/21 12:27 WBC Morphology TNR 06/09/21 12:27 Hypersegmented Neuts Not Reportable 06/09/21 12:27 Hyposegmented Neuts Not Reportable 06/09/21 12:27 Hypogranular Neuts Not Reportable 06/09/21 12:27 Smudge Cells Not Reportable 06/09/21 12:27 Toxic Granulation Not Reportable 06/09/21 12:27 Toxic Vacuolation Not Reportable 06/09/21 12:27 Dohle Bodies Not Reportable 06/09/21 12:27 Pelger-Huet Anomaly Not Reportable 06/09/21 12:27 Gui Rods Not Reportable 06/09/21 12:27 Platelet Estimate Not Reportable 06/09/21 12:27 Clumped Platelets Not Reportable 06/09/21 12:27 Plt Clumps, EDTA Not Reportable 06/09/21 12:27 Large Platelets Not Reportable 06/09/21 12:27 Giant Platelets Not Reportable 06/09/21 12:27 Platelet Satelliting Not Reportable 06/09/21 12:27 Plt Morphology Comment Not Reportable 06/09/21 12:27 RBC Morphology Not Reportable 06/09/21 12:27 Dimorphic RBCs Not Reportable 06/09/21 12:27 Polychromasia Not Reportable 06/09/21 12:27 Hypochromasia 2+ 06/09/21 12:27 Poikilocytosis 1+ 06/09/21 12:27 Anisocytosis 2+ 06/09/21 12:27 Microcytosis Not Reportable 06/09/21 12:27 Macrocytosis Not Reportable 06/09/21 12:27 Spherocytes Not Reportable 06/09/21 12:27 Pappenheimer Bodies Not Reportable 06/09/21 12:27 Sickle Cells Not Reportable 06/09/21 12:27 Target Cells Not Reportable 06/09/21 12:27 Tear Drop Cells Not Reportable 06/09/21 12:27 Ovalocytes Not Reportable 06/09/21 12:27 Helmet Cells Not Reportable 06/09/21 12:27 Martinez-[place] Bodies Not Reportable 06/09/21 12:27 [place] Rings Not Reportable 06/09/21 12:27 Anel Cells 1+ 06/09/21 12:27 Bite Cells Not Reportable 06/09/21 12:27 Crenated Cell Not Reportable 06/09/21 12:27 Elliptocytes Few 06/09/21 12:27 Acanthocytes (Spur) Not Reportable 06/09/21 12:27 Rouleaux Not Reportable 06/09/21 12:27 Hemoglobin C Crystals Not Reportable 06/09/21 12:27 Schistocytes Not Reportable 06/09/21 12:27 Malaria parasites Not Reportable 06/09/21 12:27 Narendra Bodies Not Reportable 06/09/21 12:27 Hem Pathologist Commnt No 06/09/21 12:27 PT 23.1 Sec. (12.2-14.9) H 06/11/21 10:38 INR 1.98 (0.87-1.13) H 06/11/21 10:38 APTT 52.6 Sec. (24.2-36.6) H 06/09/21 12:27 Fibrinogen 83 mg/dl (211-480) L* 06/09/21 12:27 ABG pH 7.409 pH Units (7.350-7.450) 06/11/21 03:52 POC ABG pCO2 33.1 mmHg (32.0-48.0) 06/09/21 04:04 ABG pCO2 21.0 mm Hg 06/11/21 03:52 POC ABG pO2 116.6 mmHg (83-108) H 06/09/21 04:04 ABG pO2 148.9 mm Hg (80.0-90.0) H 06/11/21 03:52 POC ABG HCO3 5.6 06/09/21 04:04 ABG HCO3 13.0 mmol/L (20.0-26.0) L 06/11/21 03:52 ABG O2 Saturation 98.9 % (95.0-99.0) 06/11/21 03:52 ABG O2 Content 12.8 (0.0-44) 06/11/21 03:52 POC ABG Base Excess -24.6 06/09/21 04:04 ABG Base Excess -10.1 mmol/L (-2.0-3.0) L 06/11/21 03:52 ABG Hemoglobin 9.1 gm/dl (12.0-16.0) L 06/11/21 03:52 ABG Oxyhemoglobin 90.6 (94-98) L 06/09/21 04:04 ABG Carboxyhemoglobin 1.6 % (0.0-5.0) 06/11/21 03:52 ABG Methemoglobin 0.3 % (0.0-1.5) 06/11/21 03:52 ABG Sodium 141.1 mmol/L (136.0-145.0) 06/09/21 04:04 ABG Potassium 3.0 mmol/L (3.40-4.50) L 06/09/21 04:04 ABG Chloride 104.0 mmol/L (98-107) 06/09/21 04:04 ABG Glucose 334 mg/dL (65-95) H 06/09/21 04:04 Oxyhemoglobin 97.1 % (95.0-99.0) 06/11/21 03:52 Carboxyhemoglobin 1.8 (0.5-1.5) H 06/09/21 04:04 FiO2 30 % 06/11/21 03:52 FiO2 % 100.0 06/09/21 04:04 Sodium 147 mmol/L (137-145) H 06/11/21 10:38 Potassium 3.9 mmol/L (3.6-5.0) 06/11/21 12:15 Chloride 118.1 mmol/L (98-107) H 06/11/21 10:38 Carbon Dioxide 11 mmol/L (22-30) L 06/11/21 10:38 Anion Gap 22 mmol/L 06/11/21 10:38 BUN 53 mg/dL (7-17) H 06/11/21 10:38 Creatinine 3.2 mg/dL (0.6-1.2) H D 06/11/21 10:38 Estimated GFR 18 ml/min 06/11/21 10:38 BUN/Creatinine Ratio 17 % 06/11/21 10:38 Glucose 104 mg/dL (65-100) H 06/11/21 10:38 POC Glucose 102 mg/dL (70-105) 06/11/21 09:25 Lactic Acid 1.70 mmol/L (0.7-2.0) 06/11/21 12:12 Calcium 5.9 mg/dL (8.4-10.2) L* D 06/11/21 10:38 Phosphorus 7.10 mg/dL (2.5-4.5) H 06/11/21 10:38 Magnesium 1.60 mg/dL (1.7-2.3) L 06/11/21 10:38 Total Bilirubin 4.20 mg/dL (0.1-1.2) H 06/11/21 10:38 AST 2252 units/L (5-40) H 06/11/21 10:38 ALT 540 units/L (7-56) H 06/11/21 10:38 Alkaline Phosphatase 94 units/L (35-129) 06/11/21 10:38 Lactate Dehydrogenase 2208 units/L (91-180) H 06/09/21 11:44 Troponin T < 0.010 ng/mL (0.00-0.029) 06/09/21 03:27 Total Protein 4.4 g/dL (6.3-8.2) L 06/11/21 10:38 Albumin 2.2 g/dL (3.9-5) L 06/11/21 10:38 Albumin/Globulin Ratio 1.0 % 06/11/21 10:38 Arterial Blood Glucose 334 mg/dL (65-95) H 06/09/21 04:04 Urine Color Yellow (Yellow) 06/10/21 08:47 Urine Turbidity Cloudy (Clear) 06/10/21 08:47 Urine pH 5.0 (5.0-7.0) 06/10/21 08:47 Ur Specific [place] 1.016 (1.003-1.030) 06/10/21 08:47 Urine Protein 100 mg/dl mg/dL (Negative) 06/10/21 08:47 Urine Glucose (UA) 150 mg/dL (Negative) 06/10/21 08:47 Urine Ketones Neg mg/dL (Negative) 06/10/21 08:47 Urine Blood Lg (Negative) 06/10/21 08:47 Urine Nitrite Neg (Negative) 06/10/21 08:47 Urine Bilirubin Neg (Negative) 06/10/21 08:47 Urine Urobilinogen < 2.0 mg/dL (<2.0) 06/10/21 08:47 Ur Leukocyte Esterase Tr (Negative) 06/10/21 08:47 Urine WBC (Auto) 23.0 /HPF (0.0-6.0) H 06/10/21 08:47 Urine RBC (Auto) 67.0 /HPF (0.0-6.0) 06/10/21 08:47 U Epithel Cells (Auto) 5.0 /HPF (0-13.0) 06/10/21 08:47 Urine Bacteria (Auto) 1+ /HPF (Negative) 06/10/21 08:47 Ur Transition Epith Cell 2 /HPF 06/10/21 08:47 Hyaline Casts 1 /LPF 06/10/21 08:47 Urine Mucus Few /HPF 06/10/21 08:47 Urine Opiates Screen Negative 06/10/21 08:47 Urine Methadone Screen Negative 06/10/21 08:47 Ur Barbiturates Screen Negative 06/10/21 08:47 Ur Phencyclidine Scrn Negative 06/10/21 08:47 Ur Amphetamines Screen Negative 06/10/21 08:47 U Benzodiazepines Scrn Negative 06/10/21 08:47 Urine Cocaine Screen Negative 06/10/21 08:47 U Marijuana (THC) Screen Positive 06/10/21 08:47 Drugs of Abuse Note Disclamer 06/10/21 08:47 Coronavirus (PCR) Negative (Negative) 06/09/21 13:12 Blood Type B POSITIVE 06/09/21 04:00 Antibody Screen Negative 06/09/21 04:00 Crossmatch See Detail 06/09/21 04:00 Microbiology: Microbiology 06/09/21 03:42 Peripheral/Venous Blood Culture - Preliminary Coag Negative Staphylococcus 06/09/21 06:15 Tracheal Aspirate Sputum Culture - Final 06/09/21 03:59 Peripheral/Venous Blood Culture - Preliminary NO GROWTH AFTER 48 HOURS Active Medications - Current Medications Current Medications: Generic Name Dose Route Start Last Admin Trade Name Freq PRN Reason Stop Dose Admin Acetaminophen 650 mg 06/09/21 11:13 Acetaminophen 325 Mg Tab PO Q4H PRN Pain MILD(1-3)/Fever >100.5/GUTIERRES Acetaminophen 975 mg 06/10/21 09:03 06/10/21 10:21 Acetaminophen 650 Mg Rect Supp IN 975 mg Q4H PRN Administration Fever >101 Dextrose 50 ml 06/09/21 11:13 Dextrose 50% In Water (25gm) 50 Ml Syringe IV Q30MIN PRN Hypoglycemia Protocol Hydromorphone HCl 0.5 mg 06/09/21 11:13 06/09/21 11:40 Hydromorphone 1 Mg/1 Ml Inj IV 0.5 mg Q3H PRN Administration Pain , Severe (7-10) Hydrophilic Ointment 1 applic 06/09/21 03:26 Lip Therapy Vaseline TP Q2HR PRN Dry Lips Pantoprazole Sodium 80 mg/ 100 mls @ 10 mls/hr 06/09/21 12:00 06/11/21 07:48 Sodium Chloride IV 8 mg/hr DIRECT GABINO 10 mls/hr Administration 8 MG/HR Vancomycin HCl 1 gm in 250 mls @ 166.667 mls/hr 06/10/21 12:00 06/11/21 12:47 Vancomycin/Ns 1 Gm/250 Ml IV 250 mls/hr Q24H GABINO Administration Lactated Ringer's 1,000 mls @ 999 mls/hr 06/11/21 13:45 06/11/21 13:48 Lactated Ringers IV 06/11/21 14:45 999 mls/hr BOLUS@1345 ONE Administration Magnesium Sulfate 1 gm/ Sodium 52 mls @ 52 mls/hr 06/11/21 14:00 06/11/21 14:03 Chloride IV 06/11/21 14:59 52 mls/hr ONCE@1400 ONE Administration Insulin Human NPH 8 unit 06/09/21 14:00 06/11/21 09:27 Insulin Nph, Human 100 Unit/1 Ml SUB-Q Not Given QDDIAB GABINO Morphine Sulfate 2 mg 06/09/21 11:13 Morphine 2 Mg/1 Ml Inj IV Q4H PRN Pain, Moderate (4-6) Multi-Ingred Cream/Lotion/Oil/Oint 1 applic 06/09/21 03:26 Mineral Oil/Petrolatum, White Ophth Oint 3.5 Gm OU Q4HR PRN Dry Eye(s) Sodium Chloride 10 ml 06/09/21 22:00 06/11/21 11:04 Sodium Chloride 0.9% 10 Ml Flush Syringe IV Not Given BID GABINO Sodium Chloride 10 ml 06/09/21 11:13 Sodium Chloride 0.9% 10 Ml Flush Syringe IV PRN PRN LINE FLUSH Nutrition/Malnutrition Assess - Dietary Evaluation Nutrition/Malnutrition Findings: Pending nutrition consult.
--- NOTE | 2021-06-11 14:47 | Consultation ---
History of Present Illness Consult date: 06/11/21 Reason for Consult: Neurologic Status after Cardiac Arrest Chief complaint: Altered Mental Status History of present illness: 60 yo female with unknown medical history, who presents with pea arrest, s/p acute GI bleed (Hgb 3.0) with initial hypoglycemia (BG 20) and hypotension. Per RN, at bedside, patient was noted with some "independent movement" of the extremities but not since the procedure yesterday. Last sedatiion she received was Versed and it was given yesterday. No clinical seizure-like activity noted. Past History Past Medical History: No medical history (Unable to obtain further medical history given patient's clinical status) Medications and Allergies Allergies Allergy/AdvReac Type Severity Reaction Status Date / Time No Known Allergies Allergy Verified 05/22/16 22:45 Home Medications Medication Instructions Recorded Confirmed Last Taken Type No Known Home Medications [No 06/09/21 06/09/21 Unknown History Reported Home Medications] Active Meds: Active Medications Acetaminophen (Acetaminophen 325 Mg Tab) 650 mg PO Q4H PRN PRN Reason: Pain MILD(1-3)/Fever >100.5/GUTIERRES Acetaminophen (Acetaminophen 650 Mg Rect Supp) 975 mg OR Q4H PRN PRN Reason: Fever >101 Last Admin: 06/10/21 10:21 Dose: 975 mg Documented by: Dextrose (Dextrose 50% In Water (25gm) 50 Ml Syringe) 50 ml IV Q30MIN PRN; Protocol PRN Reason: Hypoglycemia Hydromorphone HCl (Hydromorphone 1 Mg/1 Ml Inj) 0.5 mg IV Q3H PRN PRN Reason: Pain , Severe (7-10) Last Admin: 06/09/21 11:40 Dose: 0.5 mg Documented by: Hydrophilic Ointment (Lip Therapy Vaseline) 1 applic TP Q2HR PRN PRN Reason: Dry Lips Pantoprazole Sodium 80 mg/ (Sodium Chloride) 100 mls @ 10 mls/hr IV DIRECT GABINO Last Admin: 06/11/21 07:48 Dose: 8 mg/hr, 10 mls/hr Documented by: Lactated Ringer's (Lactated Ringers) 1,000 mls @ 999 mls/hr IV BOLUS@1345 ONE Stop: 06/11/21 14:45 Last Admin: 06/11/21 13:48 Dose: 999 mls/hr Documented by: Magnesium Sulfate 1 gm/ Sodium (Chloride) 52 mls @ 52 mls/hr IV ONCE@1400 ONE Stop: 06/11/21 14:59 Last Admin: 06/11/21 14:03 Dose: 52 mls/hr Documented by: Insulin Human NPH (Insulin Nph, Human 100 Unit/1 Ml) 8 unit SUB-Q QDDIAB [facility] Last Admin: 06/11/21 09:27 Dose: Not Given Documented by: Morphine Sulfate (Morphine 2 Mg/1 Ml Inj) 2 mg IV Q4H PRN PRN Reason: Pain, Moderate (4-6) Multi-Ingred Cream/Lotion/Oil/Oint (Mineral Oil/Petrolatum, White Ophth Oint 3.5 Gm) 1 applic OU Q4HR PRN PRN Reason: Dry Eye(s) Sodium Chloride (Sodium Chloride 0.9% 10 Ml Flush Syringe) 10 ml IV BID [facility] Last Admin: 06/11/21 11:04 Dose: Not Given Documented by: Sodium Chloride (Sodium Chloride 0.9% 10 Ml Flush Syringe) 10 ml IV PRN PRN PRN Reason: LINE FLUSH Review of Systems ROS unobtainable: due to mental status Physical Examination - Vital Signs Vital Signs: Vital Signs Pulse BP Pulse Ox 99 H 82/53 100 06/09/21 03:32 06/09/21 03:32 06/09/21 03:32 - Physical Exam Narrative exam: Gen: nad, intubated; Head: normocephalic; Eyes: no gaze deviation; no unilateral ptosis appreciated; ENT: +ETT; CVS: warm and well-perfused; Pulm: no respiratory distress; GI: appears non-distended; Ext: no edema appreciated at distal upper extremities; Skin: no acute rash appreciated at distal extremities; Heme: no bruising at distal extremities; Neuro: obtunded, aphasic, intubated, CN 2 - sluggish reactive pupils, no visual tracking; CN 3, 4, 6 - no gaze deviation, CN 5/7 - corneal reflex intact, CN 9/10 - cough reflex noted w/ ETT stimulation, CN 11/12 - pt cannot cooperate secondary to LOC; Motor/Sensory - at least 1/5 at right and 0/5 at left exts to tactile stimuli; Cerebellar/Gait - pt cannot cooperate secondary to LOC; NIHSS>25; Results - Laboratory Findings CBC and BMP: 06/11/21 10:38 06/11/21 12:15 Abnormal Lab Findings: Abnormal Labs 06/09/21 06/09/21 06/09/21 03:27 03:42 03:59 WBC RBC 1.57 L Hgb 3.0 L* Hct 11.8 L* MCV 75 L MCH 19 L MCHC 26 L RDW 21.7 H Plt Count 109 L Lymph % (Auto) 9.7 L [place] % (Auto) 8.5 H Lymph # (Auto) 0.9 L [place] # (Auto) Seg Neutrophils % 81.2 H Seg Neuts % (Manual) Lymphocytes % (Manual) Seg Neutrophils # Seg Neutrophils # Man Lymphocytes # (Manual) PT INR APTT Fibrinogen ABG pH POC ABG pO2 ABG pO2 ABG HCO3 ABG Base Excess ABG Hemoglobin ABG Oxyhemoglobin ABG Potassium ABG Glucose Carboxyhemoglobin Sodium Potassium Chloride 95.2 L Carbon Dioxide 8 L* BUN 18 H Creatinine Glucose 540 H* POC Glucose Lactic Acid 28.20 H* Calcium 11.5 H Phosphorus Magnesium Total Bilirubin AST 411 H ALT 106 H Lactate Dehydrogenase Total Protein 4.9 L Albumin 2.4 L Arterial Blood Glucose Urine WBC (Auto) Crossmatch 06/09/21 06/09/21 06/09/21 03:59 04:00 04:04 WBC RBC Hgb Hct MCV MCH MCHC RDW Plt Count Lymph % (Auto) [place] % (Auto) Lymph # (Auto) [place] # (Auto) Seg Neutrophils % Seg Neuts % (Manual) Lymphocytes % (Manual) Seg Neutrophils # Seg Neutrophils # Man Lymphocytes # (Manual) PT 34.3 H INR 3.36 H APTT 66.3 H* Fibrinogen ABG pH 6.845 L POC ABG pO2 116.6 H ABG pO2 ABG HCO3 ABG Base Excess ABG Hemoglobin 2.6 L ABG Oxyhemoglobin 90.6 L ABG Potassium 3.0 L ABG Glucose 334 H Carboxyhemoglobin 1.8 H Sodium Potassium Chloride Carbon Dioxide BUN Creatinine Glucose POC Glucose Lactic Acid Calcium Phosphorus Magnesium Total Bilirubin AST ALT Lactate Dehydrogenase Total Protein Albumin Arterial Blood Glucose 334 H Urine WBC (Auto) Crossmatch See Detail 06/09/21 06/09/21 06/09/21 05:16 11:42 11:44 WBC RBC Hgb Hct MCV MCH MCHC RDW Plt Count Lymph % (Auto) [place] % (Auto) Lymph # (Auto) [place] # (Auto) Seg Neutrophils % Seg Neuts % (Manual) Lymphocytes % (Manual) Seg Neutrophils # Seg Neutrophils # Man Lymphocytes # (Manual) PT INR APTT Fibrinogen ABG pH POC ABG pO2 ABG pO2 ABG HCO3 ABG Base Excess ABG Hemoglobin ABG Oxyhemoglobin ABG Potassium ABG Glucose Carboxyhemoglobin Sodium Potassium Chloride 109.5 H Carbon Dioxide 4 L* BUN 19 H Creatinine Glucose 158 H POC Glucose 191 H Lactic Acid 25.20 H* Calcium 7.8 L D Phosphorus Magnesium Total Bilirubin AST ALT Lactate Dehydrogenase 2208 H Total Protein Albumin Arterial Blood Glucose Urine WBC (Auto) Crossmatch 06/09/21 06/09/21 06/10/21 12:27 12:27 04:21 WBC 14.2 H RBC 3.58 L Hgb 8.9 L D Hct 29.9 L D MCV MCH 25 L MCHC RDW 22.0 H Plt Count 94 L Lymph % (Auto) [place] % (Auto) Lymph # (Auto) [place] # (Auto) Seg Neutrophils % Seg Neuts % (Manual) 87.0 H Lymphocytes % (Manual) 5.0 L Seg Neutrophils # Seg Neutrophils # Man 12.4 H Lymphocytes # (Manual) 0.7 L PT 36.0 H INR 3.58 H APTT 52.6 H Fibrinogen 83 L* ABG pH 7.323 L POC ABG pO2 ABG pO2 152.9 H ABG HCO3 12.6 L ABG Base Excess -12.0 L ABG Hemoglobin 9.2 L ABG Oxyhemoglobin ABG Potassium ABG Glucose Carboxyhemoglobin Sodium Potassium Chloride Carbon Dioxide BUN Creatinine Glucose POC Glucose Lactic Acid Calcium Phosphorus Magnesium Total Bilirubin AST ALT Lactate Dehydrogenase Total Protein Albumin Arterial Blood Glucose Urine WBC (Auto) Crossmatch 06/10/21 06/10/21 06/10/21 04:27 04:27 06:59 WBC 14.1 H RBC Hgb Hct MCV MCH 25 L MCHC RDW 20.0 H Plt Count 99 L Lymph % (Auto) 4.2 L [place] % (Auto) 8.6 H Lymph # (Auto) 0.6 L [place] # (Auto) 1.2 H Seg Neutrophils % 86.6 H Seg Neuts % (Manual) Lymphocytes % (Manual) Seg Neutrophils # 12.2 H Seg Neutrophils # Man Lymphocytes # (Manual) PT INR APTT Fibrinogen ABG pH POC ABG pO2 ABG pO2 ABG HCO3 ABG Base Excess ABG Hemoglobin ABG Oxyhemoglobin ABG Potassium ABG Glucose Carboxyhemoglobin Sodium 146 H Potassium 3.4 L Chloride 115.2 H Carbon Dioxide 14 L D BUN 30 H Creatinine 1.9 H D Glucose 122 H POC Glucose Lactic Acid 4.60 H* Calcium 7.4 L Phosphorus Magnesium Total Bilirubin 7.00 H AST 2708 H ALT 522 H Lactate Dehydrogenase Total Protein 4.8 L Albumin 2.4 L Arterial Blood Glucose Urine WBC (Auto) Crossmatch 06/10/21 06/10/21 06/10/21 06:59 08:23 08:47 WBC RBC Hgb Hct MCV MCH MCHC RDW Plt Count Lymph % (Auto) [place] % (Auto) Lymph # (Auto) [place] # (Auto) Seg Neutrophils % Seg Neuts % (Manual) Lymphocytes % (Manual) Seg Neutrophils # Seg Neutrophils # Man Lymphocytes # (Manual) PT 26.8 H INR 2.42 H APTT Fibrinogen ABG pH POC ABG pO2 ABG pO2 ABG HCO3 ABG Base Excess ABG Hemoglobin ABG Oxyhemoglobin ABG Potassium ABG Glucose Carboxyhemoglobin Sodium Potassium Chloride Carbon Dioxide BUN Creatinine Glucose POC Glucose 121 H Lactic Acid Calcium Phosphorus Magnesium Total Bilirubin AST ALT Lactate Dehydrogenase Total Protein Albumin Arterial Blood Glucose Urine WBC (Auto) 23.0 H Crossmatch 06/10/21 06/10/21 06/11/21 11:47 23:46 03:52 WBC RBC Hgb Hct MCV MCH MCHC RDW Plt Count Lymph % (Auto) [place] % (Auto) Lymph # (Auto) [place] # (Auto) Seg Neutrophils % Seg Neuts % (Manual) Lymphocytes % (Manual) Seg Neutrophils # Seg Neutrophils # Man Lymphocytes # (Manual) PT INR APTT Fibrinogen ABG pH POC ABG pO2 ABG pO2 148.9 H ABG HCO3 13.0 L ABG Base Excess -10.1 L ABG Hemoglobin 9.1 L ABG Oxyhemoglobin ABG Potassium ABG Glucose Carboxyhemoglobin Sodium Potassium Chloride Carbon Dioxide BUN Creatinine Glucose POC Glucose Lactic Acid 4.40 H* 3.30 H* Calcium Phosphorus Magnesium Total Bilirubin AST ALT Lactate Dehydrogenase Total Protein Albumin Arterial Blood Glucose Urine WBC (Auto) Crossmatch 06/11/21 06/11/2121 05:05 10:38 10:38 WBC 12.6 H RBC 3.38 L Hgb 8.5 L Hct 26.3 L MCV 78 L MCH 25 L MCHC RDW 20.6 H Plt Count 97 L Lymph % (Auto) [place] % (Auto) Lymph # (Auto) [place] # (Auto) Seg Neutrophils % Seg Neuts % (Manual) Lymphocytes % (Manual) Seg Neutrophils # Seg Neutrophils # Man Lymphocytes # (Manual) PT 23.1 H INR 1.98 H APTT Fibrinogen ABG pH POC ABG pO2 ABG pO2 ABG HCO3 ABG Base Excess ABG Hemoglobin ABG Oxyhemoglobin ABG Potassium ABG Glucose Carboxyhemoglobin Sodium Potassium Chloride Carbon Dioxide BUN Creatinine Glucose POC Glucose Lactic Acid 2.40 H* Calcium Phosphorus Magnesium Total Bilirubin AST ALT Lactate Dehydrogenase Total Protein Albumin Arterial Blood Glucose Urine WBC (Auto) Crossmatch 06/11/21 06/11/21 10:38 10:38 WBC RBC Hgb Hct MCV MCH MCHC RDW Plt Count Lymph % (Auto) [place] % (Auto) Lymph # (Auto) [place] # (Auto) Seg Neutrophils % Seg Neuts % (Manual) Lymphocytes % (Manual) Seg Neutrophils # Seg Neutrophils # Man Lymphocytes # (Manual) PT INR APTT Fibrinogen ABG pH POC ABG pO2 ABG pO2 ABG HCO3 ABG Base Excess ABG Hemoglobin ABG Oxyhemoglobin ABG Potassium ABG Glucose Carboxyhemoglobin Sodium 147 H Potassium Chloride 118.1 H Carbon Dioxide 11 L BUN 53 H Creatinine 3.2 H D Glucose 104 H POC Glucose Lactic Acid 2.30 H* Calcium 5.9 L* D Phosphorus 7.10 H Magnesium 1.60 L Total Bilirubin 4.20 H AST 2252 H ALT 540 H Lactate Dehydrogenase Total Protein 4.4 L Albumin 2.2 L Arterial Blood Glucose Urine WBC (Auto) Crossmatch Assessment and Plan 60 yo female with unknown medical history, who presents with pea arrest, s/p acute GI bleed (Hgb 3.0) with initial hypoglycemia (BG 20) and hypotension. Per RN, at bedside, patient was noted with some "independent movement" of the extremities but not since the procedure yesterday. Last sedatiion she received was Versed and it was given yesterday. No clinical seizure-like activity noted. 1. Hypoxic Anoxic Encephalopathy - repeat ct head and mr brain w/o contrast ordered to note for any evidence of cerebral edema or injury. 2. Acute Metabolic Encephalopathy - significant derangements w/ acute renal failure w/ transaminitis; ammonia/tsh ordered. 3. Nonconvulsive Seizure(s) - stat EEG ordered. 4. Acute Ischemic Stroke - will hold off on prophylactic antiplatelet therapy in the setting of an acute GI bleed and since we have no evidence per se; MR Brain w/o contrast vs. repeat CT Head w/o contrast ordered. 5. Acute GI bleed - maintain Hgb >7.0 to avoid symptomatic (cerebral irritation / injury) anemia. iMke Low MD Neurology [id number]
[2021-06-11 15:50] LABS: Hematocrit 29.6 % (30.3-42.9); Hemoglobin 8.9 gm/dl (10.1-14.3)
[2021-06-11] MEDS ORDERED: FUROSEMIDE 40 MG/4 ML INJ IV ONE (16:53)
[2021-06-11 17:51] LABS: Hematocrit 28.6 % (30.3-42.9); Hemoglobin 9.4 gm/dl (10.1-14.3)
--- NOTE | 2021-06-11 19:03 | Gastroenterology Progress Note ---
Assessment and Plan UGI bleed - s/p EGD (see report for details), H/H stable, no overt bleeding episodes today. cont IV PPI drip and monitor labs/transfusion prn abnormal liver enzymes - suspect ischemic hepatitis in setting of cardiac arrest/hypotension. trend levels and monitor. Subjective Date of service: 06/11/21 Principal diagnosis: UGI bleed Interval history: no bleeding episodes since egd; unresponsive off sedation. Objective - Exam Narrative Exam: gen: intubated abd: soft, mild dist lungs: ctab - Constitutional Vitals: Temp Pulse Resp BP Pulse Ox 95 F L 93 H 19 122/85 100 06/11/21 13:56 06/11/21 18:46 06/11/21 18:46 06/11/21 18:46 06/11/21 18:46 - Labs CBC & Chem 7: 06/11/21 17:45 06/11/21 12:15 Labs: Laboratory Results - last 24 hr 06/09/21 06/10/21 06/10/21 04:00 23:46 23:46 WBC RBC Hgb 10.1 Hct 30.9 MCV MCH MCHC RDW Plt Count PT INR ABG pH ABG pCO2 ABG pO2 ABG HCO3 ABG O2 Saturation ABG O2 Content ABG Base Excess ABG Hemoglobin ABG Carboxyhemoglobin ABG Methemoglobin Oxyhemoglobin FiO2 Sodium Potassium Chloride Carbon Dioxide Anion Gap BUN Creatinine Estimated GFR BUN/Creatinine Ratio Glucose POC Glucose Lactic Acid 3.30 H* Calcium Phosphorus Magnesium Total Bilirubin AST ALT Alkaline Phosphatase Ammonia Total Protein Albumin Albumin/Globulin Ratio TSH Blood Type B POSITIVE Antibody Screen Negative Crossmatch See Detail 06/11/21 06/11/21 06/11/21 03:52 05:05 09:25 WBC RBC Hgb Hct MCV MCH MCHC RDW Plt Count PT INR ABG pH 7.409 ABG pCO2 21.0 ABG pO2 148.9 H ABG HCO3 13.0 L ABG O2 Saturation 98.9 ABG O2 Content 12.8 ABG Base Excess -10.1 L ABG Hemoglobin 9.1 L ABG Carboxyhemoglobin 1.6 ABG Methemoglobin 0.3 Oxyhemoglobin 97.1 FiO2 30 Sodium Potassium Chloride Carbon Dioxide Anion Gap BUN Creatinine Estimated GFR BUN/Creatinine Ratio Glucose POC Glucose 102 Lactic Acid 2.40 H* Calcium Phosphorus Magnesium Total Bilirubin AST ALT Alkaline Phosphatase Ammonia Total Protein Albumin Albumin/Globulin Ratio TSH Blood Type Antibody Screen Crossmatch 06/11/21 06/11/21 06/11/21 10:38 10:38 10:38 WBC 12.6 H RBC 3.38 L Hgb 8.5 L Hct 26.3 L MCV 78 L MCH 25 L MCHC 32 RDW 20.6 H Plt Count 97 L PT 23.1 H INR 1.98 H ABG pH ABG pCO2 ABG pO2 ABG HCO3 ABG O2 Saturation ABG O2 Content ABG Base Excess ABG Hemoglobin ABG Carboxyhemoglobin ABG Methemoglobin Oxyhemoglobin FiO2 Sodium 147 H Potassium 4.2 D Chloride 118.1 H Carbon Dioxide 11 L Anion Gap 22 BUN 53 H Creatinine 3.2 H D Estimated GFR 18 BUN/Creatinine Ratio 17 Glucose 104 H POC Glucose Lactic Acid Calcium 5.9 L* D Phosphorus 7.10 H Magnesium 1.60 L Total Bilirubin 4.20 H AST 2252 H ALT 540 H Alkaline Phosphatase 94 Ammonia Total Protein 4.4 L Albumin 2.2 L Albumin/Globulin Ratio 1.0 TSH Blood Type Antibody Screen Crossmatch 06/11/21 06/11/21 06/11/21 10:38 12:12 12:15 WBC RBC Hgb Hct MCV MCH MCHC RDW Plt Count PT INR ABG pH ABG pCO2 ABG pO2 ABG HCO3 ABG O2 Saturation ABG O2 Content ABG Base Excess ABG Hemoglobin ABG Carboxyhemoglobin ABG Methemoglobin Oxyhemoglobin FiO2 Sodium Potassium 3.9 Chloride Carbon Dioxide Anion Gap BUN Creatinine Estimated GFR BUN/Creatinine Ratio Glucose POC Glucose Lactic Acid 2.30 H* 1.70 Calcium Phosphorus Magnesium Total Bilirubin AST ALT Alkaline Phosphatase Ammonia Total Protein Albumin Albumin/Globulin Ratio TSH Blood Type Antibody Screen Crossmatch 06/11/21 06/11/21 06/11/21 12:15 14:48 14:48 WBC RBC Hgb 8.9 L Hct 29.6 L MCV MCH MCHC RDW Plt Count PT INR ABG pH ABG pCO2 ABG pO2 ABG HCO3 ABG O2 Saturation ABG O2 Content ABG Base Excess ABG Hemoglobin ABG Carboxyhemoglobin ABG Methemoglobin Oxyhemoglobin FiO2 Sodium Potassium Chloride Carbon Dioxide Anion Gap BUN Creatinine Estimated GFR BUN/Creatinine Ratio Glucose POC Glucose Lactic Acid Calcium 5.9 L* Phosphorus Magnesium Total Bilirubin AST ALT Alkaline Phosphatase Ammonia 32.0 Total Protein Albumin Albumin/Globulin Ratio TSH Blood Type Antibody Screen Crossmatch 06/11/21 06/11/21 14:48 17:45 WBC RBC Hgb 9.4 L Hct 28.6 L MCV MCH MCHC RDW Plt Count PT INR ABG pH ABG pCO2 ABG pO2 ABG HCO3 ABG O2 Saturation ABG O2 Content ABG Base Excess ABG Hemoglobin ABG Carboxyhemoglobin ABG Methemoglobin Oxyhemoglobin FiO2 Sodium Potassium Chloride Carbon Dioxide Anion Gap BUN Creatinine Estimated GFR BUN/Creatinine Ratio Glucose POC Glucose Lactic Acid Calcium Phosphorus Magnesium Total Bilirubin AST ALT Alkaline Phosphatase Ammonia Total Protein Albumin Albumin/Globulin Ratio TSH 0.315 Blood Type Antibody Screen Crossmatch
[2021-06-12] MEDS: PANTOPRAZOLE 80 MG in SODIUM CHLORIDE 0.9% 100 ML IV SCH (01:10)
[2021-06-12 04:42] LABS: Basophils % (Auto) 0.1 % (0.0-1.8); Eosinophils % (Auto) 0.1 % (0.0-4.3); Hemoglobin 9.2 gm/dl (10.1-14.3); Lymphocytes # (Auto) 0.8 K/mm3 (1.2-5.4); Lymphocytes % (Auto) 5.4 % (13.4-35.0); Mean Corpuscular HGB Conc 33 % (30-34); Mean Corpuscular Volume 77 fl (79-97); Monocytes # (Auto) 1.3 K/mm3 (0.0-0.8); Monocytes % (Auto) 8.6 % (0.0-7.3); Platelet Count 112 K/mm3 (140-440); Red Blood Count 3.65 M/mm3 (3.65-5.03)
[2021-06-12 04:43] LABS: Red Cell Distribution Width 21.2 % (13.2-15.2)
[2021-06-12 04:49] LABS: INR 2.1 (0.87-1.13)
[2021-06-12 04:59] LABS: Albumin 2.2 g/dL (3.9-5); Calcium 6.1 mg/dL (8.4-10.2)
[2021-06-12 05:02] LABS: ABG HCO3 13.2 mmol/L (20.0-26.0); ABG Methemoglobin 0.5 % (0.0-1.5); ABG Oxygen Saturation 98.5 % (95.0-99.0); ABG PCO2 24.1 mm Hg; ABG PH 7.356 pH Units (7.350-7.450); ABG PO2 127.8 mm Hg (80.0-90.0)
[2021-06-12] MEDS: MINERAL OIL/PETROLATUM, WHITE OPHTH OINT 3.5 GM OU PRN ×2 (06:00→20:05)
[2021-06-12] MEDS: LIP THERAPY VASELINE TP PRN ×2 (06:00→20:00)
[2021-06-12] MEDS ORDERED: CALCIUM GLUCONATE 1,000 MG in SODIUM CHLORIDE 0.9% 100 ML IV ONE (06:00)
[2021-06-12] MEDS: INSULIN NPH, HUMAN 100 UNIT/1 ML SUB-Q SCH (08:02)
--- NOTE | 2021-06-12 08:35 | XRay Report ---
CHEST 1 VIEW INDICATION / CLINICAL INFORMATION: Respiratory failure.. COMPARISON: 06/11/2021, 06/10/2021 FINDINGS: SUPPORT DEVICES: Right-sided central venous catheter appears not significant changed. Gastric tube is present with tip overlying the expected location of the gastric fundus. HEART / MEDIASTINUM: No significant abnormality. LUNGS / PLEURA: Hazy interstitial markings suggestive of pulmonary vascular congestion, not significa nt changed. Suspected trace left pleural effusion. No pneumothorax. ADDITIONAL FINDINGS: No significant additional findings. IMPRESSION: Stable appearance of the chest with mildly prominent interstitial markings suggestive of pulmonary va scular congestion with suspected trace left pleural effusion. Signer Name: Omkar Damon MD Signed: 06/12/2021 8:31 AM Workstation Name: [id number]
--- NOTE | 2021-06-12 10:47 | Progress Note ---
Assessment and Plan 60 y/o female with cardiac arrest, intubated found to have UPPER GI bleed but no exact source of bleeding found 06/12/21: Reviewed chart and Neurology note. Will send UDS to make sure benzo's have cleared as she was on a versed drip. Discontinued all mind altering therapy. Very guarded prognosis. Patient may have been down longer than known with CPR. 1. Discontinue all sedation 2. Attempt PSV and then extubate 3. Follow up GI recs 4. Will continue to follow, with serial H/H's. CCT 31 minutes. Subjective Date of service: 06/12/21 Principal diagnosis: UGI bleed Interval history: Patient seen on yesterday but [employer] was down so not able to complete my note. This am remains unresponsive, off sedation. Not only mild shift with sternal rub. Nurse at bedside. Objective Vital Signs - 12hr 06/11/21 06/11/21 06/11/21 22:46 23:00 23:14 Pulse Rate 79 79 77 Respiratory 18 18 18 Rate Blood Pressure 134/91 121/85 121/81 O2 Sat by Pulse 100 100 100 Oximetry 06/11/21 06/11/21 06/11/21 23:16 23:19 23:30 Pulse Rate 78 78 78 Respiratory 18 18 Rate Blood Pressure 121/81 121/81 116/81 O2 Sat by Pulse 100 100 99 Oximetry 06/11/21 06/12/21 06/12/21 23:46 00:00 00:16 Pulse Rate 78 78 79 Respiratory 18 18 18 Rate Blood Pressure 120/81 125/83 129/87 O2 Sat by Pulse 100 100 100 Oximetry 06/12/21 06/12/21 06/12/21 00:30 00:46 01:00 Pulse Rate 78 78 78 Respiratory 18 18 18 Rate Blood Pressure 118/81 124/83 118/82 O2 Sat by Pulse 100 100 100 Oximetry 06/12/21 06/12/21 06/12/21 01:16 01:30 01:46 Pulse Rate 80 79 81 Respiratory 18 18 18 Rate Blood Pressure 118/81 123/83 124/84 O2 Sat by Pulse 100 100 100 Oximetry 06/12/21 06/12/21 06/12/21 02:00 02:16 02:30 Pulse Rate 81 81 82 Respiratory 18 18 18 Rate Blood Pressure 125/81 119/84 126/84 O2 Sat by Pulse 100 100 100 Oximetry 06/12/21 06/12/21 06/12/21 02:46 03:00 03:16 Pulse Rate 83 82 82 Respiratory 18 18 18 Rate Blood Pressure 129/85 121/84 119/86 O2 Sat by Pulse 100 100 100 Oximetry 06/12/21 06/12/21 06/12/21 03:30 03:46 04:00 Pulse Rate 81 84 96 H Respiratory 18 18 16 Rate Blood Pressure 119/82 128/82 157/104 O2 Sat by Pulse 100 100 100 Oximetry 06/12/21 06/12/21 06/12/21 04:16 04:30 04:46 Pulse Rate 85 84 84 Respiratory 18 16 18 Rate Blood Pressure 129/84 120/81 126/84 O2 Sat by Pulse 100 100 Oximetry 06/12/21 06/12/21 06/12/21 04:55 05:00 05:16 Pulse Rate 83 82 83 Respiratory 18 18 Rate Blood Pressure 126/84 129/86 136/85 O2 Sat by Pulse 100 100 100 Oximetry 06/12/21 06/12/21 06/12/21 05:30 05:46 06:00 Pulse Rate 83 83 83 Respiratory 18 18 Rate Blood Pressure 128/85 130/87 127/84 O2 Sat by Pulse 97 100 100 Oximetry 06/12/21 06/12/21 06/12/21 06:16 06:30 06:46 Pulse Rate 84 81 82 Respiratory 18 Rate Blood Pressure 132/88 118/81 126/84 O2 Sat by Pulse 100 100 Oximetry 06/12/21 06/12/21 06/12/21 07:00 07:16 07:30 Pulse Rate 90 86 99 H Respiratory 7 L 18 22 Rate Blood Pressure 137/94 120/81 150/98 O2 Sat by Pulse 100 100 100 Oximetry 06/12/21 06/12/21 06/12/21 07:46 08:00 08:16 Pulse Rate 85 85 85 Respiratory 18 17 18 Rate Blood Pressure 120/85 116/80 117/80 O2 Sat by Pulse 100 100 100 Oximetry 06/12/21 06/12/21 06/12/21 08:30 08:44 08:46 Pulse Rate 84 90 88 Respiratory 18 20 Rate Blood Pressure 120/79 140/95 124/81 O2 Sat by Pulse 100 100 Oximetry 06/12/21 06/12/2106/12/21 09:00 09:16 09:30 Pulse Rate 86 85 84 Respiratory 18 18 18 Rate Blood Pressure 118/81 121/80 117/77 O2 Sat by Pulse 99 100 Oximetry 06/12/21 06/12/21 06/12/21 09:46 10:00 10:16 Pulse Rate 83 83 87 Respiratory 18 18 18 Rate Blood Pressure 116/78 116/80 122/82 O2 Sat by Pulse 100 100 100 Oximetry 06/12/21 10:30 Pulse Rate 85 Respiratory 18 Rate Blood Pressure 118/81 O2 Sat by Pulse 98 Oximetry CBC and BMP: 06/12/21 04:03 06/12/21 04:03 ABG, PT/INR, D-dimer: ABG ABG pH 7.356 pH Units (7.350-7.450) 06/12/21 04:50 POC ABG pCO2 33.1 mmHg (32.0-48.0) 06/09/21 04:04 ABG pCO2 24.1 mm Hg 06/12/21 04:50 POC ABG pO2 116.6 mmHg (83-108) H 06/09/21 04:04 ABG pO2 127.8 mm Hg (80.0-90.0) H 06/12/21 04:50 POC ABG HCO3 5.6 06/09/21 04:04 ABG O2 Saturation 98.5 % (95.0-99.0) 06/12/21 04:50 PT/INR, D-dimer PT 24.1 Sec. (12.2-14.9) H 06/12/21 04:03 INR 2.10 (0.87-1.13) H 06/12/21 04:03 Abnormal lab findings: Abnormal Labs 06/09/21 06/09/21 06/09/21 03:27 03:42 03:59 WBC RBC 1.57 L Hgb 3.0 L* Hct 11.8 L* MCV 75 L MCH 19 L MCHC 26 L RDW 21.7 H Plt Count 109 L Lymph % (Auto) 9.7 L [place] % (Auto) 8.5 H Lymph # (Auto) 0.9 L [place] # (Auto) Seg Neutrophils % 81.2 H Seg Neuts % (Manual) Lymphocytes % (Manual) Seg Neutrophils # Seg Neutrophils # Man Lymphocytes # (Manual) PT INR APTT Fibrinogen ABG pH POC ABG pO2 ABG pO2 ABG HCO3 ABG Base Excess ABG Hemoglobin ABG Oxyhemoglobin ABG Potassium ABG Glucose Carboxyhemoglobin Sodium Potassium Chloride 95.2 L Carbon Dioxide 8 L* BUN 18 H Creatinine Glucose 540 H* POC Glucose Lactic Acid 28.20 H* Calcium 11.5 H Phosphorus Magnesium Total Bilirubin AST 411 H ALT 106 H Lactate Dehydrogenase Total Protein 4.9 L Albumin 2.4 L Arterial Blood Glucose Urine WBC (Auto) Crossmatch 06/09/21 06/09/21 06/09/21 03:59 04:00 04:04 WBC RBC Hgb Hct MCV MCH MCHC RDW Plt Count Lymph % (Auto) [place] % (Auto) Lymph # (Auto) [place] # (Auto) Seg Neutrophils % Seg Neuts % (Manual) Lymphocytes % (Manual) Seg Neutrophils # Seg Neutrophils # Man Lymphocytes # (Manual) PT 34.3 H INR 3.36 H APTT 66.3 H* Fibrinogen ABG pH 6.845 L POC ABG pO2 116.6 H ABG pO2 ABG HCO3 ABG Base Excess ABG Hemoglobin 2.6 L ABG Oxyhemoglobin 90.6 L ABG Potassium 3.0 L ABG Glucose 334 H Carboxyhemoglobin 1.8 H Sodium Potassium Chloride Carbon Dioxide BUN Creatinine Glucose POC Glucose Lactic Acid Calcium Phosphorus Magnesium Total Bilirubin AST ALT Lactate Dehydrogenase Total Protein Albumin Arterial Blood Glucose 334 H Urine WBC (Auto) Crossmatch See Detail 06/09/21 06/09/21 06/09/21 05:16 11:42 11:44 WBC RBC Hgb Hct MCV MCH MCHC RDW Plt Count Lymph % (Auto) [place] % (Auto) Lymph # (Auto) [place] # (Auto) Seg Neutrophils % Seg Neuts % (Manual) Lymphocytes % (Manual) Seg Neutrophils # Seg Neutrophils # Man Lymphocytes # (Manual) PT INR APTT Fibrinogen ABG pH POC ABG pO2 ABG pO2 ABG HCO3 ABG Base Excess ABG Hemoglobin ABG Oxyhemoglobin ABG Potassium ABG Glucose Carboxyhemoglobin Sodium Potassium Chloride 109.5 H Carbon Dioxide 4 L* BUN 19 H Creatinine Glucose 158 H POC Glucose 191 H Lactic Acid 25.20 H* Calcium 7.8 L D Phosphorus Magnesium Total Bilirubin AST ALT Lactate Dehydrogenase 2208 H Total Protein Albumin Arterial Blood Glucose Urine WBC (Auto) Crossmatch 06/09/21 06/09/21 06/10/21 12:27 12:27 04:21 WBC 14.2 H RBC 3.58 L Hgb 8.9 L D Hct 29.9 L D MCV MCH 25 L MCHC RDW 22.0 H Plt Count 94 L Lymph % (Auto) [place] % (Auto) Lymph # (Auto) [place] # (Auto) Seg Neutrophils % Seg Neuts % (Manual) 87.0 H Lymphocytes % (Manual) 5.0 L Seg Neutrophils # Seg Neutrophils # Man 12.4 H Lymphocytes # (Manual) 0.7 L PT 36.0 H INR 3.58 H APTT 52.6 H Fibrinogen 83 L* ABG pH 7.323 L POC ABG pO2 ABG pO2 152.9 H ABG HCO3 12.6 L ABG Base Excess -12.0 L ABG Hemoglobin 9.2 L ABG Oxyhemoglobin ABG Potassium ABG Glucose Carboxyhemoglobin Sodium Potassium Chloride Carbon Dioxide BUN Creatinine Glucose POC Glucose Lactic Acid Calcium Phosphorus Magnesium Total Bilirubin AST ALT Lactate Dehydrogenase Total Protein Albumin Arterial Blood Glucose Urine WBC (Auto) Crossmatch 06/10/21 06/10/21 06/10/21 04:27 04:27 06:59 WBC 14.1 H RBC Hgb Hct MCV MCH 25 L MCHC RDW 20.0 H Plt Count 99 L Lymph % (Auto) 4.2 L [place] % (Auto) 8.6 H Lymph # (Auto) 0.6 L [place] # (Auto) 1.2 H Seg Neutrophils % 86.6 H Seg Neuts % (Manual) Lymphocytes % (Manual) Seg Neutrophils # 12.2 H Seg Neutrophils # Man Lymphocytes # (Manual) PT INR APTT Fibrinogen ABG pH POC ABG pO2 ABG pO2 ABG HCO3 ABG Base Excess ABG Hemoglobin ABG Oxyhemoglobin ABG Potassium ABG Glucose Carboxyhemoglobin Sodium 146 H Potassium 3.4 L Chloride 115.2 H Carbon Dioxide 14 L D BUN 30 H Creatinine 1.9 H D Glucose 122 H POC Glucose Lactic Acid 4.60 H* Calcium 7.4 L Phosphorus Magnesium Total Bilirubin 7.00 H AST 2708 H ALT 522 H Lactate Dehydrogenase Total Protein 4.8 L Albumin 2.4 L Arterial Blood Glucose Urine WBC (Auto) Crossmatch 06/10/21 06/10/21 06/10/21 06:59 08:23 08:47 WBC RBC Hgb Hct MCV MCH MCHC RDW Plt Count Lymph % (Auto) [place] % (Auto) Lymph # (Auto) [place] # (Auto) Seg Neutrophils % Seg Neuts % (Manual) Lymphocytes % (Manual) Seg Neutrophils # Seg Neutrophils # Man Lymphocytes # (Manual) PT 26.8 H INR 2.42 H APTT Fibrinogen ABG pH POC ABG pO2 ABG pO2 ABG HCO3 ABG Base Excess ABG Hemoglobin ABG Oxyhemoglobin ABG Potassium ABG Glucose Carboxyhemoglobin Sodium Potassium Chloride Carbon Dioxide BUN Creatinine Glucose POC Glucose 121 H Lactic Acid Calcium Phosphorus Magnesium Total Bilirubin AST ALT Lactate Dehydrogenase Total Protein Albumin Arterial Blood Glucose Urine WBC (Auto) 23.0 H Crossmatch 06/10/21 06/10/21 06/11/21 11:47 23:46 03:52 WBC RBC Hgb Hct MCV MCH MCHC RDW Plt Count Lymph % (Auto) [place] % (Auto) Lymph # (Auto) [place] # (Auto) Seg Neutrophils % Seg Neuts % (Manual) Lymphocytes % (Manual) Seg Neutrophils # Seg Neutrophils # Man Lymphocytes # (Manual) PT INR APTT Fibrinogen ABG pH POC ABG pO2 ABG pO2 148.9 H ABG HCO3 13.0 L ABG Base Excess -10.1 L ABG Hemoglobin 9.1 L ABG Oxyhemoglobin ABG Potassium ABG Glucose Carboxyhemoglobin Sodium Potassium Chloride Carbon Dioxide BUN Creatinine Glucose POC Glucose Lactic Acid 4.40 H* 3.30 H* Calcium Phosphorus Magnesium Total Bilirubin AST ALT Lactate Dehydrogenase Total Protein Albumin Arterial Blood Glucose Urine WBC (Auto) Crossmatch 06/11/21 06/11/21 06/11/21 05:05 10:38 10:38 WBC 12.6 H RBC 3.38 L Hgb 8.5 L Hct 26.3 L MCV 78 L MCH 25 L MCHC RDW 20.6 H Plt Count 97 L Lymph % (Auto) [place] % (Auto) Lymph # (Auto) [place] # (Auto) Seg Neutrophils % Seg Neuts % (Manual) Lymphocytes % (Manual) Seg Neutrophils # Seg Neutrophils # Man Lymphocytes # (Manual) PT 23.1 H INR 1.98 H APTT Fibrinogen ABG pH POC ABG pO2 ABG pO2 ABG HCO3 ABG Base Excess ABG Hemoglobin ABG Oxyhemoglobin ABG Potassium ABG Glucose Carboxyhemoglobin Sodium Potassium Chloride Carbon Dioxide BUN Creatinine Glucose POC Glucose Lactic Acid 2.40 H* Calcium Phosphorus Magnesium Total Bilirubin AST ALT Lactate Dehydrogenase Total Protein Albumin Arterial Blood Glucose Urine WBC (Auto) Crossmatch 06/11/21 06/11/21 06/11/21 10:38 10:38 12:15 WBC RBC Hgb Hct MCV MCH MCHC RDW Plt Count Lymph % (Auto) [place] % (Auto) Lymph # (Auto) [place] # (Auto) Seg Neutrophils % Seg Neuts % (Manual) Lymphocytes % (Manual) Seg Neutrophils # Seg Neutrophils # Man Lymphocytes # (Manual) PT INR APTT Fibrinogen ABG pH POC ABG pO2 ABG pO2 ABG HCO3 ABG Base Excess ABG Hemoglobin ABG Oxyhemoglobin ABG Potassium ABG Glucose Carboxyhemoglobin Sodium 147 H Potassium Chloride 118.1 H Carbon Dioxide 11 L BUN 53 H Creatinine 3.2 H D Glucose 104 H POC Glucose Lactic Acid 2.30 H* Calcium 5.9 L* D 5.9 L* Phosphorus 7.10 H Magnesium 1.60 L Total Bilirubin 4.20 H AST 2252 H ALT 540 H Lactate Dehydrogenase Total Protein 4.4 L Albumin 2.2 L Arterial Blood Glucose Urine WBC (Auto) Crossmatch 06/11/21 06/11/21 06/12/21 14:48 17:45 04:03 WBC 14.7 H RBC Hgb 8.9 L 9.4 L 9.2 L Hct 29.6 L 28.6 L 28.0 L MCV 77 L MCH 25 L MCHC RDW 21.2 H Plt Count 112 L Lymph % (Auto) 5.4 L [place] % (Auto) 8.6 H Lymph # (Auto) 0.8 L [place] # (Auto) 1.3 H Seg Neutrophils % 85.8 H Seg Neuts % (Manual) Lymphocytes % (Manual) Seg Neutrophils # 12.6 H Seg Neutrophils # Man Lymphocytes # (Manual) PT INR APTT Fibrinogen ABG pH POC ABG pO2 ABG pO2 ABG HCO3 ABG Base Excess ABG Hemoglobin ABG Oxyhemoglobin ABG Potassium ABG Glucose Carboxyhemoglobin Sodium Potassium Chloride Carbon Dioxide BUN Creatinine Glucose POC Glucose Lactic Acid Calcium Phosphorus Magnesium Total Bilirubin AST ALT Lactate Dehydrogenase Total Protein Albumin Arterial Blood Glucose Urine WBC (Auto) Crossmatch 06/12/21 06/12/21 06/12/21 04:03 04:03 04:50 WBC RBC Hgb Hct MCV MCH MCHC RDW Plt Count Lymph % (Auto) [place] % (Auto) Lymph # (Auto) [place] # (Auto) Seg Neutrophils % Seg Neuts % (Manual) Lymphocytes % (Manual) Seg Neutrophils # Seg Neutrophils # Man Lymphocytes # (Manual) PT 24.1 H INR 2.10 H APTT Fibrinogen ABG pH POC ABG pO2 ABG pO2 127.8 H ABG HCO3 13.2 L ABG Base Excess -11.0 L ABG Hemoglobin 8.6 L ABG Oxyhemoglobin ABG Potassium ABG Glucose Carboxyhemoglobin Sodium 148 H Potassium Chloride 117.8 H Carbon Dioxide 17 L BUN 72 H Creatinine 4.6 H Glucose POC Glucose Lactic Acid Calcium 6.1 L Phosphorus 6.70 H Magnesium Total Bilirubin 3.40 H AST 1494 H ALT 512 H Lactate Dehydrogenase Total Protein 4.4 L Albumin 2.2 L Arterial Blood Glucose Urine WBC (Auto) Crossmatch
--- NOTE | 2021-06-12 13:13 | Progress Note ---
Assessment and Plan Assessment and plan: #Acute upper GI bleed -resolved #Acute blood loss anemia-resolved #Hemorrhagic shock requiring pressors -resolved -s/p Rocephin, vancomycin and pressors -hemoglobin 9.2 today, will transfuse for hemoglobin less than 7 -received 5 units PRBCs total -continue Protonix drip -Endoscopy 06/10/21: Clipping of presumed location of bleed by GI -continue to trend H&H #Acute encephalopathy -Hypoxic versus metabolic -Neurology consulted: -CT head, MRI and EEG ordered #Acute kidney injury -Unknown baseline, creatinine 4.6 -Nephrology consult in a.m. #PEA arrest -ROSC achieved -Slow rewarming #Anion gap metabolic acidosis #Lactic acidosis -Resolved -Likely secondary to PEA arrest and upper GI bleed #Coagulopathy -INR 2 today, will continue to trend -We will give vitamin K as needed #Elevated liver enzymes -AST, ALT, T bili downtrending -likely secondary to shock versus alcohol abuse (unclear patient history) -will continue to monitor #Acute hypoxic respiratory failure -Currently intubated, Pulmonary managing -Plan for extubation as mental status will allow Disposition Plan: Pending patient improvement Total Time Spent with Patient (Minutes): 40 minutes critical care time History Interval history: Per nursing patient was reported to have a bloody bowel movement overnight. No other acute events. Patient intubated not responsive to commands and stimulation. Hospitalist Physical - Physical exam Narrative exam: GENERAL: Elderly woman. Lying in bed in no acute distress. HEENT: ETT and NG tube in place (NG tube draining dark blood). NECK: Right IJ CHEST/LUNGS: Coarse breath sounds bilaterally. HEART/CARDIOVASCULAR: RRR. No murmur, rubs or gallops appreciated. ABDOMEN: +BS. NT/ND. SKIN: No rashes noted. NEURO: Unable to assess. EXTREMITIES: No cyanosis, clubbing or edema. PSYCH: Unable to assess - Constitutional Vitals: Temp Pulse Resp BP Pulse Ox 94.8 F L 85 16 121/84 100 06/11/21 19:00 06/12/21 12:59 06/12/21 12:59 06/12/21 12:59 06/12/21 12:59 General appearance: Present: no acute distress (Currently sedated) HEART Score - HEART Score EKG: Normal Age: 45-65 Troponin: Troponin T < 0.010 ng/mL (0.00-0.029) 06/09/21 03:27 - Critical Actions Critical Actions: 4-6 pts:12-16.6% risk of adverse cardiac event. Should be admitted Results - Labs CBC & Chem 7: 06/12/21 04:03 06/12/21 04:03 Labs: Laboratory Last Values WBC 14.7 K/mm3 (4.5-11.0) H 06/12/21 04:03 RBC 3.65 M/mm3 (3.65-5.03) 06/12/21 04:03 Hgb 9.2 gm/dl (10.1-14.3) L 06/12/21 04:03 Hct 28.0 % (30.3-42.9) L 06/12/21 04:03 MCV 77 fl (79-97) L 06/12/21 04:03 MCH 25 pg (28-32) L 06/12/21 04:03 MCHC 33 % (30-34) 06/12/21 04:03 RDW 21.2 % (13.2-15.2) H 06/12/21 04:03 Plt Count 112 K/mm3 (140-440) L 06/12/21 04:03 Lymph % (Auto) 5.4 % (13.4-35.0) L 06/12/21 04:03 [place] % (Auto) 8.6 % (0.0-7.3) H 06/12/21 04:03 Eos % (Auto) 0.1 % (0.0-4.3) 06/12/21 04:03 Baso % (Auto) 0.1 % (0.0-1.8) 06/12/21 04:03 Lymph # (Auto) 0.8 K/mm3 (1.2-5.4) L 06/12/21 04:03 [place] # (Auto) 1.3 K/mm3 (0.0-0.8) H 06/12/21 04:03 Eos # (Auto) 0.0 K/mm3 (0.0-0.4) 06/12/21 04:03 Baso # (Auto) 0.0 K/mm3 (0.0-0.1) 06/12/21 04:03 Add Manual Diff Complete 06/09/21 12:27 Total Counted 100 06/09/21 12:27 Seg Neutrophils % 85.8 % (40.0-70.0) H 06/12/21 04:03 Seg Neuts % (Manual) 87.0 % (40.0-70.0) H 06/09/21 12:27 Band Neutrophils % 4.0 % 06/09/21 12:27 Lymphocytes % (Manual) 5.0 % (13.4-35.0) L 06/09/21 12:27 Monocytes % (Manual) 4.0 % (0.0-7.3) 06/09/21 12:27 Nucleated RBC % Not Reportable 06/09/21 12:27 Seg Neutrophils # 12.6 K/mm3 (1.8-7.7) H 06/12/21 04:03 Seg Neutrophils # Man 12.4 K/mm3 (1.8-7.7) H 06/09/21 12:27 Band Neutrophils # 0.6 K/mm3 06/09/21 12:27 Lymphocytes # (Manual) 0.7 K/mm3 (1.2-5.4) L 06/09/21 12:27 Abs React Lymphs (Man) 0.0 K/mm3 06/09/21 12: Monocytes # (Manual) 0.6 K/mm3 (0.0-0.8) 06/09/21 12: Eosinophils # (Manual) 0.0 K/mm3 (0.0-0.4) 06/09/21 12: Basophils # (Manual) 0.0 K/mm3 (0.0-0.1) 06/09/21 12: Metamyelocytes # 0.0 K/mm3 06/09/21 12:27 Myelocytes # 0.0 K/mm3 06/09/21 12:27 Promyelocytes # 0.0 K/mm3 06/09/21 12:27 Blast Cells # 0.0 K/mm3 06/09/21 12:27 WBC Morphology Not Reportable 06/09/21 12:27 WBC Morphology TNR 06/09/21 12:27 Hypersegmented Neuts Not Reportable 06/09/21 12:27 Hyposegmented Neuts Not Reportable 06/09/21 12:27 Hypogranular Neuts Not Reportable 06/09/21 12:27 Smudge Cells Not Reportable 06/09/21 12:27 Toxic Granulation Not Reportable 06/09/21 12:27 Toxic Vacuolation Not Reportable 06/09/21 12:27 Dohle Bodies Not Reportable 06/09/21 12:27 Pelger-Huet Anomaly Not Reportable 06/09/21 12:27 Gui Rods Not Reportable 06/09/21 12:27 Platelet Estimate Not Reportable 06/09/21 12:27 Clumped Platelets Not Reportable 06/09/21 12:27 Plt Clumps, EDTA Not Reportable 06/09/21 12:27 Large Platelets Not Reportable 06/09/21 12:27 Giant Platelets Not Reportable 06/09/21 12:27 Platelet Satelliting Not Reportable 06/09/21 12:27 Plt Morphology Comment Not Reportable 06/09/21 12:27 RBC Morphology Not Reportable 06/09/21 12:27 Dimorphic RBCs Not Reportable 06/09/21 12:27 Polychromasia Not Reportable 06/09/21 12:27 Hypochromasia 2+ 06/09/21 12:27 Poikilocytosis 1+ 06/09/21 12:27 Anisocytosis 2+ 06/09/21 12:27 Microcytosis Not Reportable 06/09/21 12:27 Macrocytosis Not Reportable 06/09/21 12:27 Spherocytes Not Reportable 06/09/21 12:27 Pappenheimer Bodies Not Reportable 06/09/21 12:27 Sickle Cells Not Reportable 06/09/21 12:27 Target Cells Not Reportable 06/09/21 12:27 Tear Drop Cells Not Reportable 06/09/21 12:27 Ovalocytes Not Reportable 06/09/21 12:27 Helmet Cells Not Reportable 06/09/21 12:27 [place] Bodies Not Reportable 06/09/21 12:27 [place] Rings Not Reportable 06/09/21 12:27 [place] Cells 1+ 06/09/21 12:27 Bite Cells Not Reportable 06/09/21 12:27 Crenated Cell Not Reportable 06/09/21 12:27 Elliptocytes Few 06/09/21 12:27 Acanthocytes (Spur) Not Reportable 06/09/21 12:27 Rouleaux Not Reportable 06/09/21 12:27 Hemoglobin C Crystals Not Reportable 06/09/21 12:27 Schistocytes Not Reportable 06/09/21 12:27 Malaria parasites Not Reportable 06/09/21 12:27 Narendra Bodies Not Reportable 06/09/21 12:27 Hem Pathologist Commnt No 06/09/21 12:27 PT 24.1 Sec. (12.2-14.9) H 06/12/21 04:03 INR 2.10 (0.87-1.13) H 06/12/21 04:03 APTT 52.6 Sec. (24.2-36.6) H 06/09/21 12:27 Fibrinogen 83 mg/dl (211-480) L* 06/09/21 12:27 ABG pH 7.356 pH Units (7.350-7.450) 06/12/21 04:50 POC ABG pCO2 33.1 mmHg (32.0-48.0) 06/09/21 04:04 ABG pCO2 24.1 mm Hg 06/12/21 04:50 POC ABG pO2 116.6 mmHg (83-108) H 06/09/21 04:04 ABG pO2 127.8 mm Hg (80.0-90.0) H 06/12/21 04:50 POC ABG HCO3 5.6 06/09/21 04:04 ABG HCO3 13.2 mmol/L (20.0-26.0) L 06/12/21 04:50 ABG O2 Saturation 98.5 % (95.0-99.0) 06/12/21 04:50 ABG O2 Content 12.0 (0.0-44) 06/12/21 04:50 POC ABG Base Excess -24.6 06/09/21 04:04 ABG Base Excess -11.0 mmol/L (-2.0-3.0) L 06/12/21 04:50 ABG Hemoglobin 8.6 gm/dl (12.0-16.0) L 06/12/21 04:50 ABG Oxyhemoglobin 90.6 (94-98) L 06/09/21 04:04 ABG Carboxyhemoglobin 1.4 % (0.0-5.0) 06/12/21 04:50 ABG Methemoglobin 0.5 % (0.0-1.5) 06/12/21 04:50 ABG Sodium 141.1 mmol/L (136.0-145.0) 06/09/21 04:04 ABG Potassium 3.0 mmol/L (3.40-4.50) L 06/09/21 04:04 ABG Chloride 104.0 mmol/L (98-107) 06/09/21 04:04 ABG Glucose 334 mg/dL (65-95) H 06/09/21 04:04 Oxyhemoglobin 96.6 % (95.0-99.0) 06/12/21 04:50 Carboxyhemoglobin 1.8 (0.5-1.5) H 06/09/21 04:04 FiO2 30 % 06/12/21 04:50 FiO2 % 100.0 06/09/21 04:04 Sodium 148 mmol/L (137-145) H 06/12/21 04:03 Potassium 4.0 mmol/L (3.6-5.0) 06/12/21 04:03 Chloride 117.8 mmol/L (98-107) H 06/12/21 04:03 Carbon Dioxide 17 mmol/L (22-30) L 06/12/21 04:03 Anion Gap 17 mmol/L 06/12/21 04:03 BUN 72 mg/dL (7-17) H 06/12/21 04:03 Creatinine 4.6 mg/dL (0.6-1.2) H 06/12/21 04:03 Estimated GFR 12 ml/min 06/12/21 04:03 BUN/Creatinine Ratio 16 % 06/12/21 04:03 Glucose 99 mg/dL (65-100) 06/12/21 04:03 POC Glucose 86 mg/dL (70-105) 06/12/21 07:59 Lactic Acid 1.70 mmol/L (0.7-2.0) 06/11/21 12:12 Calcium 6.1 mg/dL (8.4-10.2) L 06/12/21 04:03 Phosphorus 6.70 mg/dL (2.5-4.5) H 06/12/21 04:03 Magnesium 1.70 mg/dL (1.7-2.3) 06/12/21 04:03 Total Bilirubin 3.40 mg/dL (0.1-1.2) H 06/12/21 04:03 AST 1494 units/L (5-40) H 06/12/21 04:03 ALT 512 units/L (7-56) H 06/12/21 04:03 Alkaline Phosphatase 94 units/L (35-129) 06/12/21 04:03 Ammonia 32.0 umol/L (25-60) 06/11/21 14:48 Lactate Dehydrogenase 2208 units/L (91-180) H 06/09/21 11:44 Troponin T < 0.010 ng/mL (0.00-0.029) 06/09/21 03:27 Total Protein 4.4 g/dL (6.3-8.2) L 06/12/21 04:03 Albumin 2.2 g/dL (3.9-5) L 06/12/21 04:03 Albumin/Globulin Ratio 1.0 % 06/12/21 04:03 TSH 0.315 mlU/mL (0.270-4.200) 06/11/21 14:48 Arterial Blood Glucose 334 mg/dL (65-95) H 06/09/21 04:04 Urine Color Yellow (Yellow) 06/10/21 08:47 Urine Turbidity Cloudy (Clear) 06/10/21 08:47 Urine pH 5.0 (5.0-7.0) 06/10/21 08:47 Ur Specific [place] 1.016 (1.003-1.030) 06/10/21 08:47 Urine Protein 100 mg/dl mg/dL (Negative) 06/10/21 08:47 Urine Glucose (UA) 150 mg/dL (Negative) 06/10/21 08:47 Urine Ketones Neg mg/dL (Negative) 06/10/21 08:47 Urine Blood Lg (Negative) 06/10/21 08:47 Urine Nitrite Neg (Negative) 06/10/21 08:47 Urine Bilirubin Neg (Negative) 06/10/21 08:47 Urine Urobilinogen < 2.0 mg/dL (<2.0) 06/10/21 08:47 Ur Leukocyte Esterase Tr (Negative) 06/10/21 08:47 Urine WBC (Auto) 23.0 /HPF (0.0-6.0) H 06/10/21 08:47 Urine RBC (Auto) 67.0 /HPF (0.0-6.0) 06/10/21 08:47 U Epithel Cells (Auto) 5.0 /HPF (0-13.0) 06/10/21 08:47 Urine Bacteria (Auto) 1+ /HPF (Negative) 06/10/21 08:47 Ur Transition Epith Cell 2 /HPF 06/10/21 08:47 Hyaline Casts 1 /LPF 06/10/21 08:47 Urine Mucus Few /HPF 06/10/21 08:47 Urine Opiates Screen Negative 06/10/21 08:47 Urine Methadone Screen Negative 06/10/21 08:47 Ur Barbiturates Screen Negative 06/10/21 08:47 Ur Phencyclidine Scrn Negative 06/10/21 08:47 Ur Amphetamines Screen Negative 06/10/21 08:47 U Benzodiazepines Scrn Negative 06/10/21 08:47 Urine Cocaine Screen Negative 06/10/21 08:47 U Marijuana (THC) Screen Positive 06/10/21 08:47 Drugs of Abuse Note Disclamer 06/10/21 08:47 Coronavirus (PCR) Negative (Negative) 06/09/21 13:12 Blood Type B POSITIVE 06/09/21 04:00 Antibody Screen Negative 06/09/21 04:00 Crossmatch See Detail 06/09/21 04:00 Microbiology: Microbiology 06/10/21 08:47 Urine,[place] Urine Culture - Preliminary NO GROWTH AFTER 24 HOURS 06/09/21 03:59 Peripheral/Venous Blood Culture - Preliminary NO GROWTH AFTER 72 HOURS 06/12/21 08:59 Peripheral/Venous Blood Culture - Preliminary Culture in Progress 06/12/21 08:59 Peripheral/Venous Blood Culture - Preliminary Culture in Progress 06/09/21 03:42 Peripheral/Venous Blood Culture - Preliminary Coag Negative Staphylococcus 06/09/21 06:15 Tracheal Aspirate Sputum Culture - Final Active Medications - Current Medications Current Medications: Generic Name Dose Route Start Last Admin Trade Name Freq PRN Reason Stop Dose Admin Dextrose 50 ml 06/09/21 11:13 Dextrose 50% In Water (25gm) 50 Ml Syringe IV Q30MIN PRN Hypoglycemia Protocol Hydrophilic Ointment 1 applic 06/09/21 03:26 06/12/21 06:00 Lip Therapy Vaseline TP 1 applic Q2HR PRN Administration Dry Lips Pantoprazole Sodium 80 mg/ 100 mls @ 10 mls/hr 06/09/21 12:00 06/12/21 01:10 Sodium Chloride IV 8 mg/hr DIRECT GABINO 10 mls/hr Administration 8 MG/HR Multi-Ingred Cream/Lotion/Oil/Oint 1 applic 06/09/21 03:26 06/12/21 06:00 Mineral Oil/Petrolatum, White Ophth Oint 3.5 Gm OU 1 applic Q4HR PRN Administration Dry Eye(s) Sodium Chloride 10 ml 06/09/21 22:00 06/12/21 10:43 Sodium Chloride 0.9% 10 Ml Flush Syringe IV 10 ml BID GABINO Administration Sodium Chloride 10 ml 06/09/21 11:13 Sodium Chloride 0.9% 10 Ml Flush Syringe IV PRN PRN LINE FLUSH Nutrition/Malnutrition Assess - Dietary Evaluation Nutrition/Malnutrition Findings: Nutrition Notes Start: 06/11/21 15:21 Freq: Status: Active Protocol: Document 06/11/21 15:21 GB (Rec: 06/11/21 15:28 GB [id number]) Nutrition Notes Need for Assessment generated from: MD Order Initial or Follow up Assessment Other Pertinent Diagnosis GI bleed Current Diet NPO Labs/Tests 06/11: Na 147, BUN 53, creatinine 3.2, glucose 104, Ca 5.9, P 7.1, Mg 1.6, AST 2252, , ALT 540 Pertinent Medications Mg Sulfate, NaCl Height 5 ft 3 in Weight 57.107 kg [place] Body Weight (kg) 52.27 BMI 22.3 Weight change and time frame new admit Subjective/Other Information currently intubated, GI bleed Percent of energy/protein needs met: currently 0% with NPO Burn Absent Trauma Absent GI Symptoms Other Current % PO Other Minimum of two criteria No #1 Nutrition Diagnosis Inadequate energy intake Etiology Intubated, GI Bleed As Evidenced by Signs and Symptoms NPO, intubation Is patient on ventilator? Yes Is Patient Ambulatory and/or Out of Bed No REE-([facility]-confined to bed) 1343.208 Kcal/Kg value to use for calculation 25 Approximate Energy Requirements Using 1428 kcal/Kg Calculation Used for Recommendations Kcal/kg Additional Notes Protein 1-1.2 g/kg @ 57k- 68g Fluids: 1 ml/kcal or per MD Nutrition Intervention Change Diet Order: Continue NPO, if extubated begin Clear liquids (no red colored clears) Nutrition Support: Recommend TPN for 3-5 days to allow GI Bleed healing (need central line) Goal #1 Extubate and advance diet to clear liquids Goal #2 If intubation continues, begin TPN post central line placement Follow-Up By: 06/13/21 Additional Comments TPN?, extubated and clear liquids?
--- NOTE | 2021-06-12 15:51 | Consultation ---
History of Present Illness - Reason for Consult acute renal failure - History of Present Illness Very pleasant 60-year-old female with no known past medical history an who was found unresponsive at home. EMS was called and CPR was started in the field. Patient did receive multiple rounds of epinephrine prior to return of spontaneous circulation noted. Patient now remains intubated off pressor support. Nephrology consult is for worsening acute kidney injury. On admission hemoglobin was noted to be markedly low at 3 and gastric lavage revealed coffee ground emesis. Underwent emergent EGD which found large amount of old blood in the lining of the stomach. There was no active site of bleeding noted per Gastroenterology notes. Over the past 24-48 hours renal function has continued to worsen. Nephrology consult for further evaluation at this time. Urine analysis reviewed indicative of positive hematuria as well as proteinuria. No documented history of kidney disease. Past History Past Medical History: No medical history (Unable to obtain further medical history given patient's clinical status) Medications and Allergies Allergies Allergy/AdvReac Type Severity Reaction Status Date / Time No Known Allergies Allergy Verified 05/22/16 22:45 Home Medications Medication Instructions Recorded Confirmed Last Taken Type No Known Home Medications [No 06/09/21 06/09/21 Unknown History Reported Home Medications] Active Meds: Active Medications Dextrose (Dextrose 50% In Water (25gm) 50 Ml Syringe) 50 ml IV Q30MIN PRN; Protocol PRN Reason: Hypoglycemia Hydrophilic Ointment (Lip Therapy Vaseline) 1 applic TP Q2HR PRN PRN Reason: Dry Lips Last Admin: 06/12/21 06:00 Dose: 1 applic Documented by: Pantoprazole Sodium 80 mg/ (Sodium Chloride) 100 mls @ 10 mls/hr IV DIRECT [facility] Last Admin: 06/12/21 01:10 Dose: 8 mg/hr, 10 mls/hr Documented by: Multi-Ingred Cream/Lotion/Oil/Oint (Mineral Oil/Petrolatum, White Ophth Oint 3.5 Gm) 1 applic OU Q4HR PRN PRN Reason: Dry Eye(s) Last Admin: 06/12/21 06:00 Dose: 1 applic Documented by: Sodium Chloride (Sodium Chloride 0.9% 10 Ml Flush Syringe) 10 ml IV BID [facility] Last Admin: 06/12/21 10:43 Dose: 10 ml Documented by: Sodium Chloride (Sodium Chloride 0.9% 10 Ml Flush Syringe) 10 ml IV PRN PRN PRN Reason: LINE FLUSH Review of Systems ROS unobtainable: due to endotracheal tube, due to mental status Exam - Vital Signs Vital signs: Vital Signs Pulse BP Pulse Ox 99 H 82/53 100 06/09/21 03:32 06/09/21 03:32 06/09/21 03:32 - General Appearance General appearance: chronically ill, intubated, comatose EENT: ATNC Neck: Present: neck supple Respiratory: Ronchi Heart: regular Gastrointestinal: Present: normoactive bowel sounds Integumentary: warm and dry Musculoskeletal: Present: deferred Results - Lab Results 06/12/21 04:03 06/12/21 04:03 Most recent lab results ABG pH 7.356 pH Units (7.350-7.450) 06/12/21 04:50 ABG pCO2 24.1 mm Hg 06/12/21 04:50 ABG pO2 127.8 mm Hg (80.0-90.0) H 06/12/21 04:50 ABG HCO3 13.2 mmol/L (20.0-26.0) L 06/12/21 04:50 ABG O2 Saturation 98.5 % (95.0-99.0) 06/12/21 04:50 Calcium 6.1 mg/dL (8.4-10.2) L 06/12/21 04:03 Phosphorus 6.70 mg/dL (2.5-4.5) H 06/12/21 04:03 Magnesium 1.70 mg/dL (1.7-2.3) 06/12/21 04:03 Assessment and Plan - Patient Problems (1) Acute kidney injury Current Visit: Yes Status: Acute Plan to address problem: Worsening acute kidney injury likely secondary to acute tubular necrosis in the setting of cardiac arrest and severely decreased hemoglobin levels in the setting of upper GI bleed. Urinalysis however was also concerning for evidence of microscopic hematuria and proteinuria, indicating a possible underlying glomerulonephritis picture. Given worsening renal function along with anemia and given nephritic type urine analysis will undergo further testing at this shlomo e which will include serologic markers including complement levels and ANCA vasculitis levels. Will also add an anti-GBM antibody test at this time. We will monitor closely. Please avoid all nephrotoxins and maintain mean arterial pressures above 65 mmHg. Please orders for a renal ultrasound for further evaluation. (2) Cardiac arrest Onset Date: ~06/09/21 Current Visit: Yes Status: Acute Plan to address problem: With return of spontaneous circulation. Off pressor support at this time. Will monitor closely. (3) GI bleed Onset Date: ~06/09/21 Current Visit: Yes Status: Acute Qualifiers: GI bleed type/associated pathology: unspecified gastrointestinal hemorrhage type Qualified Code(s): K92.2 - Gastrointestinal hemorrhage, unspecified Plan to address problem: That is post emergent EGD showing large amount of old blood without any evidence of active bleeding sites noted. We will continue to monitor closely. Start on Protonix drip. Await further recommendations from gastroenterology. (4) Acute respiratory failure Current Visit: Yes Status: Acute Plan to address problem: Ventilator management per pulmonology.
--- NOTE | 2021-06-12 16:35 | Gastroenterology Progress Note ---
Assessment and Plan 1. Upper gi bleed - s/p egd 06/10, limited visualization due to blood, focal area of possible bleeding lesion in the gastric body that was treated with clip placement, however definitive source of bleed is unclear. regardless, H/H seems to be holding stable and would cont IV PPI drip, and monitor labs with prn transfusions. will follow Subjective Date of service: 06/12/21 Principal diagnosis: UGI bleed Interval history: pt with episode of melena overnight. H/H stable. no over events/changes overnight Objective - Exam Narrative Exam: gen: intubated, non-responsive abd: soft, mild dist lungs: ctab - Constitutional Vitals: Temp Pulse Resp BP Pulse Ox 94.8 F L 85 16 121/84 100 06/11/21 19:00 06/12/21 12:59 06/12/21 12:59 06/12/21 12:59 06/12/21 12:59 - Labs CBC & Chem 7: 06/12/21 04:03 06/12/21 04:03 Labs: Laboratory Results - last 24 hr 06/09/21 06/11/21 06/12/21 04:00 17:45 00:36 WBC RBC Hgb 9.4 L Hct 28.6 L MCV MCH MCHC RDW Plt Count Lymph % (Auto) [place] % (Auto) Eos % (Auto) Baso % (Auto) Lymph # (Auto) [place] # (Auto) Eos # (Auto) Baso # (Auto) Seg Neutrophils % Seg Neutrophils # PT INR ABG pH ABG pCO2 ABG pO2 ABG HCO3 ABG O2 Saturation ABG O2 Content ABG Base Excess ABG Hemoglobin ABG Carboxyhemoglobin ABG Methemoglobin Oxyhemoglobin FiO2 Sodium Potassium Chloride Carbon Dioxide Anion Gap BUN Creatinine Estimated GFR BUN/Creatinine Ratio Glucose POC Glucose 100 Calcium Phosphorus Magnesium Total Bilirubin AST ALT Alkaline Phosphatase Total Protein Albumin Albumin/Globulin Ratio Blood Type B POSITIVE Antibody Screen Negative Crossmatch See Detail 06/12/21 06/12/21 06/12/21 04:03 04:03 04:03 WBC 14.7 H RBC 3.65 Hgb 9.2 L Hct 28.0 L MCV 77 L MCH 25 L MCHC 33 RDW 21.2 H Plt Count 112 L Lymph % (Auto) 5.4 L [place] % (Auto) 8.6 H Eos % (Auto) 0.1 Baso % (Auto) 0.1 Lymph # (Auto) 0.8 L [place] # (Auto) 1.3 H Eos # (Auto) 0.0 Baso # (Auto) 0.0 Seg Neutrophils % 85.8 H Seg Neutrophils # 12.6 H PT 24.1 H INR 2.10 H ABG pH ABG pCO2 ABG pO2 ABG HCO3 ABG O2 Saturation ABG O2 Content ABG Base Excess ABG Hemoglobin ABG Carboxyhemoglobin ABG Methemoglobin Oxyhemoglobin FiO2 Sodium 148 H Potassium 4.0 Chloride 117.8 H Carbon Dioxide 17 L Anion Gap 17 BUN 72 H Creatinine 4.6 H Estimated GFR 12 BUN/Creatinine Ratio 16 Glucose 99 POC Glucose Calcium 6.1 L Phosphorus 6.70 H Magnesium 1.70 Total Bilirubin 3.40 H AST 1494 H ALT 512 H Alkaline Phosphatase 94 Total Protein 4.4 L Albumin 2.2 L Albumin/Globulin Ratio 1.0 Blood Type Antibody Screen Crossmatch 06/12/21 06/12/21 04:50 07:59 WBC RBC Hgb Hct MCV MCH MCHC RDW Plt Count Lymph % (Auto) [place] % (Auto) Eos % (Auto) Baso % (Auto) Lymph # (Auto) [place] # (Auto) Eos # (Auto) Baso # (Auto) Seg Neutrophils % Seg Neutrophils # PT INR ABG pH 7.356 ABG pCO2 24.1 ABG pO2 127.8 H ABG HCO3 13.2 L ABG O2 Saturation 98.5 ABG O2 Content 12.0 ABG Base Excess -11.0 L ABG Hemoglobin 8.6 L ABG Carboxyhemoglobin 1.4 ABG Methemoglobin 0.5 Oxyhemoglobin 96.6 FiO2 30 Sodium Potassium Chloride Carbon Dioxide Anion Gap BUN Creatinine Estimated GFR BUN/Creatinine Ratio Glucose POC Glucose 86 Calcium Phosphorus Magnesium Total Bilirubin AST ALT Alkaline Phosphatase Total Protein Albumin Albumin/Globulin Ratio Blood Type Antibody Screen Crossmatch
--- NOTE | 2021-06-12 18:19 | Ultrasound Report ---
ULTRASOUND RENAL INDICATION: PEG. COMPARISON: CT abd 06/09/21. FINDINGS: RIGHT KIDNEY: Size: 11.4 cm. Echogenicity: Normal. Cortical thickness: Normal. Stones: None. Hydronephrosis: None. Cyst or mass: None. LEFT KIDNEY: Size: 11.2 cm. Echogenicity: Normal. Cortical thickness: Normal. Stones: None. Hydronephrosis: None. Cyst or mass: None. Urinary Bladder: Collapsed around a alfonso catheter. Free Fluid: None. Additional Findings: None. IMPRESSION 1. No acute sonographic abnormality of the kidneys. Signer Name: Damien Orlando MD Signed: 06/12/2021 6:15 PM Workstation Name: [id number]
--- NOTE | 2021-06-12 23:04 | Cat Scan Report ---
CT HEAD WITHOUT CONTRAST INDICATION / CLINICAL INFORMATION: Hypoxic Anoxic Brain Injury s/p PEA. TECHNIQUE: All CT scans at this location are performed using CT dose reduction for ALARA by means of automated exposure control. COMPARISON: CT head 06/09/2021 FINDINGS: Examination is markedly degraded secondary to patient positioning. HEMORRHAGE: None. ACUTE INFARCTION: See below MASS/MASS EFFECT: No Significant Abnormality CEREBRAL PARENCHYMA: The joseph-white matter differentiation is ill-defined on this examination. Given patient history, this could reflect global hypoxic ischemic injury. No significant sulcal effacement or herniation. VENTRICULAR SYSTEM: Normal in size and morphology for the patient's age. ORBITS: Normal as visualized. SKULL: No significant abnormality. PARANASAL SINUSES / MASTOID AIR CELLS: Normal as visualized. ADDITIONAL FINDINGS: None. IMPRESSION: Ill-defined differentiation of the joseph and white matter, could reflect global hypoxic ischemic injur y given patient history. However, there is been no significant progression of sulcal effacement or he rniation compared with reference exam from June 09. Correlation with MRI or nuclear medicine cer ebral perfusion examination may be of benefit. Signer Name: Michael Rodriguez MD Signed: 06/12/2021 10:59 PM Workstation Name: [id number]
[2021-06-13 00:44] LABS: Amphetamine Screen,Urine PRESUMPTIVE NEGATIVE; Benzodiazepines Screen,Urine PRESUMPTIVE POSITIVE; Cannabinoid Screen,Urine PRESUMPTIVE NEGATIVE; Cocaine Screen,Urine PRESUMPTIVE NEGATIVE; Methadone Screen,Urine PRESUMPTIVE NEGATIVE; Opiate Screen,Urine PRESUMPTIVE NEGATIVE
--- NOTE | 2021-06-13 08:07 | Progress Note ---
Hospitalist Physical - Constitutional Vitals: Temp Pulse Resp BP Pulse Ox 98.4 F 76 20 107/72 100 06/12/21 19:33 06/13/21 07:00 06/13/21 07:00 06/13/21 07:00 06/13/21 07:00 General appearance: Present: no acute distress (Currently sedated) HEART Score - HEART Score EKG: Normal Age: 45-65 Troponin: Troponin T < 0.010 ng/mL (0.00-0.029) 06/09/21 03:27 - Critical Actions Critical Actions: 4-6 pts:12-16.6% risk of adverse cardiac event. Should be admitted Results - Labs CBC & Chem 7: 06/12/21 04:03 06/12/21 04:03 Labs: Laboratory Last Values WBC 14.7 K/mm3 (4.5-11.0) H 06/12/21 04:03 RBC 3.65 M/mm3 (3.65-5.03) 06/12/21 04:03 Hgb 9.2 gm/dl (10.1-14.3) L 06/12/21 04:03 Hct 28.0 % (30.3-42.9) L 06/12/21 04:03 MCV 77 fl (79-97) L 06/12/21 04:03 MCH 25 pg (28-32) L 06/12/21 04:03 MCHC 33 % (30-34) 06/12/21 04:03 RDW 21.2 % (13.2-15.2) H 06/12/21 04:03 Plt Count 112 K/mm3 (140-440) L 06/12/21 04:03 Lymph % (Auto) 5.4 % (13.4-35.0) L 06/12/21 04:03 [place] % (Auto) 8.6 % (0.0-7.3) H 06/12/21 04:03 Eos % (Auto) 0.1 % (0.0-4.3) 06/12/21 04:03 Baso % (Auto) 0.1 % (0.0-1.8) 06/12/21 04:03 Lymph # (Auto) 0.8 K/mm3 (1.2-5.4) L 06/12/21 04:03 [place] # (Auto) 1.3 K/mm3 (0.0-0.8) H 06/12/21 04:03 Eos # (Auto) 0.0 K/mm3 (0.0-0.4) 06/12/21 04:03 Baso # (Auto) 0.0 K/mm3 (0.0-0.1) 06/12/21 04:03 Add Manual Diff Complete 06/09/21 12:27 Total Counted 100 06/09/21 12:27 Seg Neutrophils % 85.8 % (40.0-70.0) H 06/12/21 04:03 Seg Neuts % (Manual) 87.0 % (40.0-70.0) H 06/09/21 12:27 Band Neutrophils % 4.0 % 06/09/21 12:27 Lymphocytes % (Manual) 5.0 % (13.4-35.0) L 06/09/21 12:27 Monocytes % (Manual) 4.0 % (0.0-7.3) 06/09/21 12:27 Nucleated RBC % Not Reportable 06/09/21 12:27 Seg Neutrophils # 12.6 K/mm3 (1.8-7.7) H 06/12/21 04:03 Seg Neutrophils # Man 12.4 K/mm3 (1.8-7.7) H 06/09/21 12:27 Band Neutrophils # 0.6 K/mm3 06/09/21 12:27 Lymphocytes # (Manual) 0.7 K/mm3 (1.2-5.4) L 06/09/21 12:27 Abs React Lymphs (Man) 0.0 K/mm3 06/09/21 12:27 Monocytes # (Manual) 0.6 K/mm3 (0.0-0.8) 06/09/21 12:27 Eosinophils # (Manual) 0.0 K/mm3 (0.0-0.4) 06/09/21 12:27 Basophils # (Manual) 0.0 K/mm3 (0.0-0.1) 06/09/21 12:27 Metamyelocytes # 0.0 K/mm3 06/09/21 12: Myelocytes # 0.0 K/mm3 06/09/21 12: Promyelocytes # 0.0 K/mm3 06/09/21 12:27 Blast Cells # 0.0 K/mm3 06/09/21 12:27 WBC Morphology Not Reportable 06/09/21 12:27 WBC Morphology TNR 06/09/21 12:27 Hypersegmented Neuts Not Reportable 06/09/21 12:27 Hyposegmented Neuts Not Reportable 06/09/21 12:27 Hypogranular Neuts Not Reportable 06/09/21 12:27 Smudge Cells Not Reportable 06/09/21 12:27 Toxic Granulation Not Reportable 06/09/21 12:27 Toxic Vacuolation Not Reportable 06/09/21 12:27 Dohle Bodies Not Reportable 06/09/21 12:27 Pelger-Huet Anomaly Not Reportable 06/09/21 12:27 Gui Rods Not Reportable 06/09/21 12:27 Platelet Estimate Not Reportable 06/09/21 12:27 Clumped Platelets Not Reportable 06/09/21 12:27 Plt Clumps, EDTA Not Reportable 06/09/21 12:27 Large Platelets Not Reportable 06/09/21 12:27 Giant Platelets Not Reportable 06/09/21 12:27 Platelet Satelliting Not Reportable 06/09/21 12:27 Plt Morphology Comment Not Reportable 06/09/21 12:27 RBC Morphology Not Reportable 06/09/21 12:27 Dimorphic RBCs Not Reportable 06/09/21 12:27 Polychromasia Not Reportable 06/09/21 12:27 Hypochromasia 2+ 06/09/21 12:27 Poikilocytosis 1+ 06/09/21 12:27 Anisocytosis 2+ 06/09/21 12:27 Microcytosis Not Reportable 06/09/21 12:27 Macrocytosis Not Reportable 06/09/21 12:27 Spherocytes Not Reportable 06/09/21 12:27 Pappenheimer Bodies Not Reportable 06/09/21 12:27 Sickle Cells Not Reportable 06/09/21 12:27 Target Cells Not Reportable 06/09/21 12:27 Tear Drop Cells Not Reportable 06/09/21 12:27 Ovalocytes Not Reportable 06/09/21 12:27 Helmet Cells Not Reportable 06/09/21 12:27 [place] Bodies Not Reportable 06/09/21 12:27 [place] Rings Not Reportable 06/09/21 12:27 [place] Cells 1+ 06/09/21 12:27 Bite Cells Not Reportable 06/09/21 12:27 Crenated Cell Not Reportable 06/09/21 12:27 Elliptocytes Few 06/09/21 12:27 Acanthocytes (Spur) Not Reportable 06/09/21 12:27 Rouleaux Not Reportable 06/09/21 12:27 Hemoglobin C Crystals Not Reportable 06/09/21 12:27 Schistocytes Not Reportable 06/09/21 12:27 Malaria parasites Not Reportable 06/09/21 12:27 Narendra Bodies Not Reportable 06/09/21 12:27 Hem Pathologist Commnt No 06/09/21 12:27 PT 24.1 Sec. (12.2-14.9) H 06/12/21 04:03 INR 2.10 (0.87-1.13) H 06/12/21 04:03 APTT 52.6 Sec. (24.2-36.6) H 06/09/21 12:27 Fibrinogen 83 mg/dl (211-480) L* 06/09/21 12:27 ABG pH 7.384 (7.320-7.450) 06/13/21 04:00 POC ABG pCO2 22.8 mmHg (32.0-48.0) L 06/13/21 04:00 ABG pCO2 24.1 mm Hg 06/12/21 04:50 POC ABG pO2 115.7 mmHg (83-108) H 06/13/21 04:00 ABG pO2 127.8 mm Hg (80.0-90.0) H 06/12/21 04:50 POC ABG HCO3 13.3 06/13/21 04:00 ABG HCO3 13.2 mmol/L (20.0-26.0) L 06/12/21 04:50 ABG O2 Saturation 98.5 (0-100) 06/13/21 04:00 ABG O2 Content 12.0 (0.0-44) 06/12/21 04:50 POC ABG Base Excess -10.6 06/13/21 04:00 ABG Base Excess -11.0 mmol/L (-2.0-3.0) L 06/12/21 04:50 ABG Hemoglobin 7.2 (12.0-17.5) L 06/13/21 04:00 ABG Oxyhemoglobin 96.9 (94-98) 06/13/21 04:00 ABG Carboxyhemoglobin 1.4 % (0.0-5.0) 06/12/21 04:50 ABG Methemoglobin 0.3 (0.0-1.5) 06/13/21 04:00 ABG Sodium 142.0 mmol/L (136.0-145.0) 06/13/21 04:00 ABG Potassium 3.7 mmol/L (3.40-4.50) 06/13/21 04:00 ABG Chloride 119.0 mmol/L (98-107) H 06/13/21 04:00 ABG Glucose 102 mg/dL (65-95) H 06/13/21 04:00 Oxyhemoglobin 96.6 % (95.0-99.0) 06/12/21 04:50 Carboxyhemoglobin 1.3 (0.5-1.5) 06/13/21 04:00 FiO2 30 % 06/12/21 04:50 FiO2 % 30.0 06/13/21 04:00 Sodium 148 mmol/L (137-145) H 06/12/21 04:03 Potassium 4.0 mmol/L (3.6-5.0) 06/12/21 04:03 Chloride 117.8 mmol/L (98-107) H 06/12/21 04:03 Carbon Dioxide 17 mmol/L (22-30) L 06/12/21 04:03 Anion Gap 17 mmol/L 06/12/21 04:03 BUN 72 mg/dL (7-17) H 06/12/21 04:03 Creatinine 4.6 mg/dL (0.6-1.2) H 06/12/21 04:03 Estimated GFR 12 ml/min 06/12/21 04:03 BUN/Creatinine Ratio 16 % 06/12/21 04:03 Glucose 99 mg/dL (65-100) 06/12/21 04:03 POC Glucose 92 mg/dL (70-105) 06/13/21 05:56 Lactic Acid 1.70 mmol/L (0.7-2.0) 06/11/21 12:12 Calcium 6.1 mg/dL (8.4-10.2) L 06/12/21 04:03 Phosphorus 6.70 mg/dL (2.5-4.5) H 06/12/21 04:03 Magnesium 1.70 mg/dL (1.7-2.3) 06/12/21 04:03 Total Bilirubin 3.40 mg/dL (0.1-1.2) H 06/12/21 04:03 AST 1494 units/L (5-40) H 06/12/21 04:03 ALT 512 units/L (7-56) H 06/12/21 04:03 Alkaline Phosphatase 94 units/L (35-129) 06/12/21 04:03 Ammonia 32.0 umol/L (25-60) 06/11/21 14:48 Lactate Dehydrogenase 2208 units/L (91-180) H 06/09/21 11:44 Troponin T < 0.010 ng/mL (0.00-0.029) 06/09/21 03:27 Total Protein 4.4 g/dL (6.3-8.2) L 06/12/21 04:03 Albumin 2.2 g/dL (3.9-5) L 06/12/21 04:03 Albumin/Globulin Ratio 1.0 % 06/12/21 04:03 TSH 0.315 mlU/mL (0.270-4.200) 06/11/21 14:48 Arterial Blood Glucose 102 mg/dL (65-95) H 06/13/21 04:00 Urine Color Yellow (Yellow) 06/10/21 08:47 Urine Turbidity Cloudy (Clear) 06/10/21 08:47 Urine pH 5.0 (5.0-7.0) 06/10/21 08:47 Ur Specific [place] 1.016 (1.003-1.030) 06/10/21 08:47 Urine Protein 100 mg/dl mg/dL (Negative) 06/10/21 08:47 Urine Glucose (UA) 150 mg/dL (Negative) 06/10/21 08:47 Urine Ketones Neg mg/dL (Negative) 06/10/21 08:47 Urine Blood Lg (Negative) 06/10/21 08:47 Urine Nitrite Neg (Negative) 06/10/21 08:47 Urine Bilirubin Neg (Negative) 06/10/21 08:47 Urine Urobilinogen < 2.0 mg/dL (<2.0) 06/10/21 08:47 Ur Leukocyte Esterase Tr (Negative) 06/10/21 08:47 Urine WBC (Auto) 23.0 /HPF (0.0-6.0) H 06/10/21 08:47 Urine RBC (Auto) 67.0 /HPF (0.0-6.0) 06/10/21 08:47 U Epithel Cells (Auto) 5.0 /HPF (0-13.0) 06/10/21 08:47 Urine Bacteria (Auto) 1+ /HPF (Negative) 06/10/21 08:47 Ur Transition Epith Cell 2 /HPF 06/10/21 08:47 Hyaline Casts 1 /LPF 06/10/21 08:47 Urine Mucus Few /HPF 06/10/21 08:47 Urine Creatinine 28.0 mg/dL (0.1-20.0) H 06/13/21 00:16 Urine Sodium 109 mmol/L 06/13/21 00:16 Urine Opiates Screen Presumptive negative 06/13/21 00:16 Urine Methadone Screen Presumptive negative 06/13/21 00:16 Ur Barbiturates Screen Presumptive negative 06/13/21 00:16 Ur Phencyclidine Scrn Presumptive negative 06/13/21 00:16 Ur Amphetamines Screen Presumptive negative 06/13/21 00:16 U Benzodiazepines Scrn Presumptive positive 06/13/21 00:16 Urine Cocaine Screen Presumptive negative 06/13/21 00:16 U Marijuana (THC) Screen Presumptive negative 06/13/21 00:16 Drugs of Abuse Note Disclamer 06/13/21 00:16 Coronavirus (PCR) Negative (Negative) 06/09/21 13:12 Blood Type B POSITIVE 06/09/21 04:00 Antibody Screen Negative 06/09/21 04:00 Crossmatch See Detail 06/09/21 04:00 Microbiology: Microbiology 06/10/21 08:47 Urine,[place] Urine Culture - Final NO GROWTH AFTER 48 HOURS 06/09/21 03:59 Peripheral/Venous Blood Culture - Preliminary NO GROWTH AFTER 72 HOURS 06/12/21 08:59 Peripheral/Venous Blood Culture - Preliminary Culture in Progress 06/12/21 08:59 Peripheral/Venous Blood Culture - Preliminary Culture in Progress Active Medications - Current Medications Current Medications: Generic Name Dose Route Start Last Admin Trade Name Freq PRN Reason Stop Dose Admin Dextrose 50 ml 06/09/21 11:13 Dextrose 50% In Water (25gm) 50 Ml Syringe IV Q30MIN PRN Hypoglycemia Protocol Hydrophilic Ointment 1 applic 06/09/21 03:26 06/12/21 20:00 Lip Therapy Vaseline TP 1 applic Q2HR PRN Administration Dry Lips Pantoprazole Sodium 80 mg/ 100 mls @ 10 mls/hr 06/09/21 12:00 06/12/21 01:10 Sodium Chloride IV 8 mg/hr DIRECT GABINO 10 mls/hr Administration 8 MG/HR Multi-Ingred Cream/Lotion/Oil/Oint 1 applic 06/09/21 03:26 06/12/21 20:05 Mineral Oil/Petrolatum, White Ophth Oint 3.5 Gm OU 1 applic Q4HR PRN Administration Dry Eye(s) Sodium Chloride 10 ml 06/09/21 22:00 06/12/21 23:30 Sodium Chloride 0.9% 10 Ml Flush Syringe IV 10 ml BID GABINO Administration Sodium Chloride 10 ml 06/09/21 11:13 Sodium Chloride 0.9% 10 Ml Flush Syringe IV PRN PRN LINE FLUSH Nutrition/Malnutrition Assess - Dietary Evaluation Nutrition/Malnutrition Findings: Nutrition Notes Start: 06/11/21 15:21 Freq: Status: Active Protocol: Document 06/11/21 15:21 GB (Rec: 06/11/21 15:28 GB [id number]) Nutrition Notes Need for Assessment generated from: MD Order Initial or Follow up Assessment Other Pertinent Diagnosis GI bleed Current Diet NPO Labs/Tests 06/11: Na 147, BUN 53, creatinine 3.2, glucose 104, Ca 5.9, P 7.1, Mg 1.6, AST 2252, , ALT 540 Pertinent Medications Mg Sulfate, NaCl Height 5 ft 3 in Weight 57.107 kg [place] Body Weight (kg) 52.27 BMI 22.3 Weight change and time frame new admit Subjective/Other Information currently intubated, GI bleed Percent of energy/protein needs met: currently 0% with NPO Burn Absent Trauma Absent GI Symptoms Other Current % PO Other Minimum of two criteria No #1 Nutrition Diagnosis Inadequate energy intake Etiology Intubated, GI Bleed As Evidenced by Signs and Symptoms NPO, intubation Is patient on ventilator? Yes Is Patient Ambulatory and/or Out of Bed No REE-([facility]-confined to bed) 1343.208 Kcal/Kg value to use for calculation 25 Approximate Energy Requirements Using 1428 kcal/Kg Calculation Used for Recommendations Kcal/kg Additional Notes Protein 1-1.2 g/kg @ 57k- 68g Fluids: 1 ml/kcal or per MD Nutrition Intervention Change Diet Order: Continue NPO, if extubated begin Clear liquids (no red colored clears) Nutrition Support: Recommend TPN for 3-5 days to allow GI Bleed healing (need central line) Goal #1 Extubate and advance diet to clear liquids Goal #2 If intubation continues, begin TPN post central line placement Follow-Up By: 06/13/21 Additional Comments TPN?, extubated and clear liquids?
[2021-06-13 08:40] LABS: Hematocrit 26.2 % (30.3-42.9); Hemoglobin 8.9 gm/dl (10.1-14.3); Mean Corpuscular HGB Conc 34 % (30-34); Mean Corpuscular Volume 75 fl (79-97); Red Blood Count 3.51 M/mm3 (3.65-5.03)
--- NOTE | 2021-06-13 08:42 | XRay Report ---
CHEST - 1 VIEW 0741 hours INDICATION: follow up respiratory failure COMPARISON: Yesterday FINDINGS: Support devices: Stable support device positioning. Heart: Stable cardiomediastinal silhouette. Lungs/pleura: Stable small left pleural effusion with compressive atelectasis or infiltrate at the l eft lung base. Otherwise the lungs are generally clear. No pneumothorax. Additional findings: None. IMPRESSION: Unchanged exam. Signer Name: Soham Landers Jr, MD Signed: 06/13/2021 8:37 AM Workstation Name: [id number]
[2021-06-13 08:43] LABS: Platelet Count 96 K/mm3 (140-440); Red Cell Distribution Width 21.3 % (13.2-15.2)
[2021-06-13 09:09] LABS: Calcium 6.2 mg/dL (8.4-10.2)
--- NOTE | 2021-06-13 09:18 | Progress Note ---
Assessment and Plan - Patient Problems (1) Acute kidney injury Current Visit: Yes Status: Acute Plan to address problem: Worsening acute kidney injury likely secondary to acute tubular necrosis in the setting of cardiac arrest and severely decreased hemoglobin levels in the setting of upper GI bleed. Urinalysis however was also concerning for evidence of microscopic hematuria and proteinuria, indicating a possible underlying glomerulonephritis picture. Given worsening renal function along with anemia and given nephritic type urine analysis will undergo further testing at this time which will include serologic markers including complement levels and ANCA vasculitis levels. Will also add an anti-GBM antibody test at this time. We will monitor closely. Please avoid all nephrotoxins and maintain mean arterial pressures above 65 mmHg. Renal ultrasound reviewed without any acute abnormalities noted. (2) Cardiac arrest Onset Date: ~06/09/21 Current Visit: Yes Status: Acute Plan to address problem: With return of spontaneous circulation. Off pressor support at this time. Will monitor closely. (3) GI bleed Onset Date: ~06/09/21 Current Visit: Yes Status: Acute Qualifiers: GI bleed type/associated pathology: unspecified gastrointestinal hemorrhage type Qualified Code(s): K92.2 - Gastrointestinal hemorrhage, unspecified Plan to address problem: That is post emergent EGD showing large amount of old blood without any evidence of active bleeding sites noted. We will continue to monitor closely. Continues on on Protonix drip. Await further recommendations from gastroenterology. Overall rate of GI bleeding seems to be decreased and hemoglobin/hematocrit levels are stable this morning. (4) Acute respiratory failure Current Visit: Yes Status: Acute Plan to address problem: Ventilator management per pulmonology. Stable on current vent settings. Subjective Date of service: 06/13/21 Principal diagnosis: UGI bleed Interval history: Hematemesis seems to be slowing down at this time with decreased bloody secretions from nasogastric suction. Remains off pressor support and is otherwise hemodynamically stable. Remains nonoliguric. No new labs this morning. Stable vent settings overnight. No other acute issues overnight per nursing staff at bedside. Objective - Vital Signs Vital signs: Vital Signs - 12hr 06/12/21 06/12/21 06/12/21 21:30 21:46 22:00 Pulse Rate 82 85 86 Respiratory 20 21 22 Rate Blood Pressure 120/75 133/76 132/83 O2 Sat by Pulse 100 100 100 Oximetry 06/12/21 06/12/21 06/12/21 22:16 22:30 22:52 Pulse Rate 83 88 84 Respiratory 21 21 18 Rate Blood Pressure 134/82 134/82 136/90 O2 Sat by Pulse 100 100 100 Oximetry 06/12/21 06/12/21 06/12/21 23:00 23:16 23:30 Pulse Rate 95 H 82 81 Respiratory 22 18 18 Rate Blood Pressure 136/90 130/94 136/90 O2 Sat by Pulse 100 100 100 Oximetry 06/12/21 06/12/21 06/13/21 23:46 23:56 00:00 Pulse Rate 79 79 78 Respiratory 18 18 18 Rate Blood Pressure 102/71 98/68 98/68 O2 Sat by Pulse 100 100 100 Oximetry 06/13/21 06/13/21 06/13/21 00:16 00:30 00:46 Pulse Rate 78 77 77 Respiratory 18 18 18 Rate Blood Pressure 98/68 99/69 101/69 O2 Sat by Pulse 100 100 100 Oximetry 06/13/21 06/13/21 06/13/21 01:00 01:16 01:30 Pulse Rate 77 77 76 Respiratory 18 18 18 Rate Blood Pressure 104/70 103/70 98/69 O2 Sat by Pulse 100 100 100 Oximetry 06/13/21 06/13/21 06/13/21 01:46 02:00 02:16 Pulse Rate 76 76 77 Respiratory 18 18 18 Rate Blood Pressure 100/71 100/69 103/72 O2 Sat by Pulse 100 100 100 Oximetry 06/13/21 06/13/21 06/13/21 02:30 02:46 03:00 Pulse Rate 76 79 79 Respiratory 19 18 18 Rate Blood Pressure 123/86 111/78 111/78 O2 Sat by Pulse 100 100 100 Oximetry 06/13/21 06/13/21 06/13/21 03:16 03:30 03:46 Pulse Rate 79 79 80 Respiratory 18 18 18 Rate Blood Pressure 117/84 117/84 115/85 O2 Sat by Pulse 100 100 100 Oximetry 06/13/21 06/13/21 06/13/21 04:00 04:16 04:30 Pulse Rate 77 78 79 Respiratory 18 18 18 Rate Blood Pressure 116/82 127/93 125/91 O2 Sat by Pulse 100 100 100 Oximetry 06/13/21 06/13/21 06/13/21 04:45 04:46 05:00 Pulse Rate 88 79 77 Respiratory 18 18 Rate Blood Pressure 122/76 114/81 115/80 O2 Sat by Pulse 100 100 100 Oximetry 06/13/21 06/13/21 06/13/21 05:15 05:16 05:30 Pulse Rate 85 78 Respiratory 21 20 Rate Blood Pressure 109/79 118/79 O2 Sat by Pulse 100 100 100 Oximetry 06/13/21 06/13/21 06/13/21 05:46 06:00 06:16 Pulse Rate 82 78 77 Respiratory 22 20 19 Rate Blood Pressure 124/86 106/72 101/71 O2 Sat by Pulse 100 100 100 Oximetry 06/13/21 06/13/21 06/13/21 06:30 06:46 07:00 Pulse Rate 77 77 76 Respiratory 20 19 20 Rate Blood Pressure 104/70 107/72 107/72 O2 Sat by Pulse 100 100 100 Oximetry 06/13/21 06/13/21 06/13/21 07:30 08:00 08:30 Pulse Rate 75 86 82 Respiratory 21 22 21 Rate Blood Pressure 113/74 109/76 113/86 O2 Sat by Pulse 100 100 100 Oximetry 06/13/21 09:00 Pulse Rate 76 Respiratory 19 Rate Blood Pressure 109/77 O2 Sat by Pulse 100 Oximetry - General Appearance General appearance: chronically ill, intubated, frail EENT: ATNC Neck: no JVD Respiratory: Present: Decreased Breath Sounds Cardiology: regular Gastrointestinal: normal Integumentary: warm and dry Musculoskeletal: deferred - Lab 06/13/21 08:11 06/13/21 08:11 Most recent lab results ABG pH 7.384 (7.320-7.450) 06/13/21 04:00 ABG pCO2 24.1 mm Hg 06/12/21 04:50 ABG pO2 127.8 mm Hg (80.0-90.0) H 06/12/21 04:50 ABG HCO3 13.2 mmol/L (20.0-26.0) L 06/12/21 04:50 ABG O2 Saturation 98.5 (0-100) 06/13/21 04:00 Calcium 6.2 mg/dL (8.4-10.2) L 06/13/21 08:11 Phosphorus 6.70 mg/dL (2.5-4.5) H 06/12/21 04:03 Magnesium 1.70 mg/dL (1.7-2.3) 06/12/21 04:03 Urine Creatinine 28.0 mg/dL (0.1-20.0) H 06/13/21 00:16 Urine Sodium 109 mmol/L 06/13/21 00:16 - Allied health notes Allied health notes reviewed: nursing Medications & Allergies - Medications Allergies/Adverse Reactions: Allergies No Known Allergies Allergy (Verified 05/22/16 22:45) Home Medications: Home Medications Medication Instructions Recorded Confirmed Last Taken Type No Known Home Medications [No 06/09/21 06/09/21 Unknown History Reported Home Medications] Active Medications: Generic Name Dose Route Start Last Admin Trade Name Freq PRN Reason Stop Dose Admin Dextrose 50 ml 06/09/21 11:13 Dextrose 50% In Water (25gm) 50 Ml Syringe IV Q30MIN PRN Hypoglycemia Protocol Hydrophilic Ointment 1 applic 06/09/21 03:26 06/12/21 20:00 Lip Therapy Vaseline TP 1 applic Q2HR PRN Administration Dry Lips Pantoprazole Sodium 80 mg/ 100 mls @ 10 mls/hr 06/09/21 12:00 06/12/21 01:10 Sodium Chloride IV 8 mg/hr DIRECT GABINO 10 mls/hr Administration 8 MG/HR Multi-Ingred Cream/Lotion/Oil/Oint 1 applic 06/09/21 03:26 06/12/21 20:05 Mineral Oil/Petrolatum, White Ophth Oint 3.5 Gm OU 1 applic Q4HR PRN Administration Dry Eye(s) Sodium Chloride 10 ml 06/09/21 22:00 06/12/21 23:30 Sodium Chloride 0.9% 10 Ml Flush Syringe IV 10 ml BID GABINO Administration Sodium Chloride 10 ml 06/09/21 11:13 Sodium Chloride 0.9% 10 Ml Flush Syringe IV PRN PRN LINE FLUSH
[2021-06-13] MEDS: PANTOPRAZOLE 80 MG in SODIUM CHLORIDE 0.9% 100 ML IV SCH ×2 (13:39→22:27)
--- NOTE | 2021-06-13 13:46 | Progress Note ---
Assessment and Plan 60 y/o female with cardiac arrest, intubated found to have UPPER GI bleed but no exact source of bleeding found 06/13/21: Will check UDS daily to see if benzo's continue to hang around. Not sure if dialysis can help but may need this to clear out drugs to see if patient will wake up. Renal has already seen today so await there assessment tomorrow after viewing my note. repeat UDS again as patient is still making urine. No new neurology notes or follow up. MRI not done, head CT suggests anoxic brain injury but not definite. Still think that all other metabolic derangements would need to be addressed. Guarded prognosis. 06/12/21: Reviewed chart and Neurology note. Will send UDS to make sure benzo's have cleared as she was on a versed drip. Discontinued all mind altering therapy. Very guarded prognosis. Patient may have been down longer than known with CPR. 1. Discontinue all sedation 2. Attempt PSV and then extubate 3. Follow up GI recs 4. Will continue to follow, with serial H/H's. CCT 31 minutes. Subjective Date of service: 06/13/21 Principal diagnosis: UGI bleed Interval history: Worsening renal failure and UDS positive for benzos. Remains unresponsive but on minimal vent support. Objective Vital Signs - 12hr 06/13/21 06/13/21 06/13/21 01:46 02:00 02:16 Temperature Pulse Rate 76 76 77 Respiratory 18 18 18 Rate Blood Pressure 100/71 100/69 103/72 O2 Sat by Pulse 100 100 100 Oximetry 06/13/21 06/13/21 06/13/21 02:30 02:46 03:00 Temperature Pulse Rate 76 79 79 Respiratory 19 18 18 Rate Blood Pressure 123/86 111/78 111/78 O2 Sat by Pulse 100 100 100 Oximetry 06/13/21 06/13/21 06/13/21 03:16 03:30 03:46 Temperature Pulse Rate 79 79 80 Respiratory 18 18 18 Rate Blood Pressure 117/84 117/84 115/85 O2 Sat by Pulse 100 100 100 Oximetry 06/13/21 06/13/21 06/13/21 04:00 04:16 04:30 Temperature Pulse Rate 77 78 79 Respiratory 18 18 18 Rate Blood Pressure 116/82 127/93 125/91 O2 Sat by Pulse 100 100 100 Oximetry 06/13/21 06/13/21 06/13/21 04:45 04:46 05:00 Temperature Pulse Rate 88 79 77 Respiratory 18 18 Rate Blood Pressure 122/76 114/81 115/80 O2 Sat by Pulse 100 100 100 Oximetry 06/13/21 06/13/21 06/13/21 05:15 05:16 05:30 Temperature Pulse Rate 85 78 Respiratory 21 20 Rate Blood Pressure 109/79 118/79 O2 Sat by Pulse 100 100 100 Oximetry 06/13/21 06/13/21 06/13/21 05:46 06:00 06:16 Temperature Pulse Rate 82 78 77 Respiratory 22 20 19 Rate Blood Pressure 124/86 106/72 101/71 O2 Sat by Pulse 100 100 100 Oximetry 06/13/21 06/13/21 06/13/21 06:30 06:46 07:00 Temperature Pulse Rate 77 77 76 Respiratory 20 19 20 Rate Blood Pressure 104/70 107/72 107/72 O2 Sat by Pulse 100 100 100 Oximetry 06/13/21 06/13/21 06/13/21 07:30 08:00 08:30 Temperature Pulse Rate 75 86 82 Respiratory 21 22 21 Rate Blood Pressure 113/74 109/76 113/86 O2 Sat by Pulse 100 100 100 Oximetry 06/13/21 06/13/21 06/13/21 08:42 09:00 09:19 Temperature 96.8 F L Pulse Rate 76 76 Respiratory 19 Rate Blood Pressure 115/80 109/77 O2 Sat by Pulse 100 100 Oximetry 06/13/21 06/13/21 06/13/21 09:30 10:00 10:30 Temperature Pulse Rate 75 76 76 Respiratory 19 20 19 Rate Blood Pressure 112/80 117/81 130/91 O2 Sat by Pulse 100 100 100 Oximetry 06/13/21 11:00 Temperature Pulse Rate 74 Respiratory 18 Rate Blood Pressure 115/81 O2 Sat by Pulse 100 Oximetry CBC and BMP: 06/13/21 08:11 06/13/21 08:11 ABG, PT/INR, D-dimer: ABG ABG pH 7.384 (7.320-7.450) 06/13/21 04:00 POC ABG pCO2 22.8 mmHg (32.0-48.0) L 06/13/21 04:00 ABG pCO2 24.1 mm Hg 06/12/21 04:50 POC ABG pO2 115.7 mmHg (83-108) H 06/13/21 04:00 ABG pO2 127.8 mm Hg (80.0-90.0) H 06/12/21 04:50 POC ABG HCO3 13.3 06/13/21 04:00 ABG O2 Saturation 98.5 (0-100) 06/13/21 04:00 PT/INR, D-dimer PT 24.1 Sec. (12.2-14.9) H 06/12/21 04:03 INR 2.10 (0.87-1.13) H 06/12/21 04:03 Abnormal lab findings: Abnormal Labs 06/09/21 06/09/21 06/09/21 03:27 03:42 03:59 WBC RBC 1.57 L Hgb 3.0 L* Hct 11.8 L* MCV 75 L MCH 19 L MCHC 26 L RDW 21.7 H Plt Count 109 L Lymph % (Auto) 9.7 L [place] % (Auto) 8.5 H Lymph # (Auto) 0.9 L [place] # (Auto) Seg Neutrophils % 81.2 H Seg Neuts % (Manual) Lymphocytes % (Manual) Seg Neutrophils # Seg Neutrophils # Man Lymphocytes # (Manual) PT INR APTT Fibrinogen ABG pH POC ABG pCO2 POC ABG pO2 ABG pO2 ABG HCO3 ABG Base Excess ABG Hemoglobin ABG Oxyhemoglobin ABG Potassium ABG Chloride ABG Glucose Carboxyhemoglobin Sodium Potassium Chloride 95.2 L Carbon Dioxide 8 L* BUN 18 H Creatinine Glucose 540 H* POC Glucose Lactic Acid 28.20 H* Calcium 11.5 H Phosphorus Magnesium Total Bilirubin AST 411 H ALT 106 H Lactate Dehydrogenase Total Protein 4.9 L Albumin 2.4 L Arterial Blood Glucose Urine WBC (Auto) Urine Creatinine Crossmatch 06/09/21 06/09/21 06/09/21 03:59 04:00 04:04 WBC RBC Hgb Hct MCV MCH MCHC RDW Plt Count Lymph % (Auto) [place] % (Auto) Lymph # (Auto) [place] # (Auto) Seg Neutrophils % Seg Neuts % (Manual) Lymphocytes % (Manual) Seg Neutrophils # Seg Neutrophils # Man Lymphocytes # (Manual) PT 34.3 H INR 3.36 H APTT 66.3 H* Fibrinogen ABG pH 6.845 L POC ABG pCO2 POC ABG pO2 116.6 H ABG pO2 ABG HCO3 ABG Base Excess ABG Hemoglobin 2.6 L ABG Oxyhemoglobin 90.6 L ABG Potassium 3.0 L ABG Chloride ABG Glucose 334 H Carboxyhemoglobin 1.8 H Sodium Potassium Chloride Carbon Dioxide BUN Creatinine Glucose POC Glucose Lactic Acid Calcium Phosphorus Magnesium Total Bilirubin AST ALT Lactate Dehydrogenase Total Protein Albumin Arterial Blood Glucose 334 H Urine WBC (Auto) Urine Creatinine Crossmatch See Detail 06/09/21 06/09/21 06/09/21 05:16 11:42 11:44 WBC RBC Hgb Hct MCV MCH MCHC RDW Plt Count Lymph % (Auto) [place] % (Auto) Lymph # (Auto) [place] # (Auto) Seg Neutrophils % Seg Neuts % (Manual) Lymphocytes % (Manual) Seg Neutrophils # Seg Neutrophils # Man Lymphocytes # (Manual) PT INR APTT Fibrinogen ABG pH POC ABG pCO2 POC ABG pO2 ABG pO2 ABG HCO3 ABG Base Excess ABG Hemoglobin ABG Oxyhemoglobin ABG Potassium ABG Chloride ABG Glucose Carboxyhemoglobin Sodium Potassium Chloride 109.5 H Carbon Dioxide 4 L* BUN 19 H Creatinine Glucose 158 H POC Glucose 191 H Lactic Acid 25.20 H* Calcium 7.8 L D Phosphorus Magnesium Total Bilirubin AST ALT Lactate Dehydrogenase 2208 H Total Protein Albumin Arterial Blood Glucose Urine WBC (Auto) Urine Creatinine Crossmatch 06/09/21 06/09/21 06/10/21 12:27 12:27 04:21 WBC 14.2 H RBC 3.58 L Hgb 8.9 L D Hct 29.9 L D MCV MCH 25 L MCHC RDW 22.0 H Plt Count 94 L Lymph % (Auto) [place] % (Auto) Lymph # (Auto) [place] # (Auto) Seg Neutrophils % Seg Neuts % (Manual) 87.0 H Lymphocytes % (Manual) 5.0 L Seg Neutrophils # Seg Neutrophils # Man 12.4 H Lymphocytes # (Manual) 0.7 L PT 36.0 H INR 3.58 H APTT 52.6 H Fibrinogen 83 L* ABG pH 7.323 L POC ABG pCO2 POC ABG pO2 ABG pO2 152.9 H ABG HCO3 12.6 L ABG Base Excess -12.0 L ABG Hemoglobin 9.2 L ABG Oxyhemoglobin ABG Potassium ABG Chloride ABG Glucose Carboxyhemoglobin Sodium Potassium Chloride Carbon Dioxide BUN Creatinine Glucose POC Glucose Lactic Acid Calcium Phosphorus Magnesium Total Bilirubin AST ALT Lactate Dehydrogenase Total Protein Albumin Arterial Blood Glucose Urine WBC (Auto) Urine Creatinine Crossmatch 06/10/21 06/10/21 06/10/21 04:27 04:27 06:59 WBC 14.1 H RBC Hgb Hct MCV MCH 25 L MCHC RDW 20.0 H Plt Count 99 L Lymph % (Auto) 4.2 L [place] % (Auto) 8.6 H Lymph # (Auto) 0.6 L [place] # (Auto) 1.2 H Seg Neutrophils % 86.6 H Seg Neuts % (Manual) Lymphocytes % (Manual) Seg Neutrophils # 12.2 H Seg Neutrophils # Man Lymphocytes # (Manual) PT INR APTT Fibrinogen ABG pH POC ABG pCO2 POC ABG pO2 ABG pO2 ABG HCO3 ABG Base Excess ABG Hemoglobin ABG Oxyhemoglobin ABG Potassium ABG Chloride ABG Glucose Carboxyhemoglobin Sodium 146 H Potassium 3.4 L Chloride 115.2 H Carbon Dioxide 14 L D BUN 30 H Creatinine 1.9 H D Glucose 122 H POC Glucose Lactic Acid 4.60 H* Calcium 7.4 L Phosphorus Magnesium Total Bilirubin 7.00 H AST 2708 H ALT 522 H Lactate Dehydrogenase Total Protein 4.8 L Albumin 2.4 L Arterial Blood Glucose Urine WBC (Auto) Urine Creatinine Crossmatch 06/10/21 06/10/21 06/10/21 06:59 08:23 08:47 WBC RBC Hgb Hct MCV MCH MCHC RDW Plt Count Lymph % (Auto) [place] % (Auto) Lymph # (Auto) [place] # (Auto) Seg Neutrophils % Seg Neuts % (Manual) Lymphocytes % (Manual) Seg Neutrophils # Seg Neutrophils # Man Lymphocytes # (Manual) PT 26.8 H INR 2.42 H APTT Fibrinogen ABG pH POC ABG pCO2 POC ABG pO2 ABG pO2 ABG HCO3 ABG Base Excess ABG Hemoglobin ABG Oxyhemoglobin ABG Potassium ABG Chloride ABG Glucose Carboxyhemoglobin Sodium Potassium Chloride Carbon Dioxide BUN Creatinine Glucose POC Glucose 121 H Lactic Acid Calcium Phosphorus Magnesium Total Bilirubin AST ALT Lactate Dehydrogenase Total Protein Albumin Arterial Blood Glucose Urine WBC (Auto) 23.0 H Urine Creatinine Crossmatch 06/10/21 06/10/21 06/11/21 11:47 23:46 03:52 WBC RBC Hgb Hct MCV MCH MCHC RDW Plt Count Lymph % (Auto) [place] % (Auto) Lymph # (Auto) [place] # (Auto) Seg Neutrophils % Seg Neuts % (Manual) Lymphocytes % (Manual) Seg Neutrophils # Seg Neutrophils # Man Lymphocytes # (Manual) PT INR APTT Fibrinogen ABG pH POC ABG pCO2 POC ABG pO2 ABG pO2 148.9 H ABG HCO3 13.0 L ABG Base Excess -10.1 L ABG Hemoglobin 9.1 L ABG Oxyhemoglobin ABG Potassium ABG Chloride ABG Glucose Carboxyhemoglobin Sodium Potassium Chloride Carbon Dioxide BUN Creatinine Glucose POC Glucose Lactic Acid 4.40 H* 3.30 H* Calcium Phosphorus Magnesium Total Bilirubin AST ALT Lactate Dehydrogenase Total Protein Albumin Arterial Blood Glucose Urine WBC (Auto) Urine Creatinine Crossmatch 06/11/21 06/11/21 06/11/21 05:05 10:38 10:38 WBC 12.6 H RBC 3.38 L Hgb 8.5 L Hct 26.3 L MCV 78 L MCH 25 L MCHC RDW 20.6 H Plt Count 97 L Lymph % (Auto) [place] % (Auto) Lymph # (Auto) [place] # (Auto) Seg Neutrophils % Seg Neuts % (Manual) Lymphocytes % (Manual) Seg Neutrophils # Seg Neutrophils # Man Lymphocytes # (Manual) PT 23.1 H INR 1.98 H APTT Fibrinogen ABG pH POC ABG pCO2 POC ABG pO2 ABG pO2 ABG HCO3 ABG Base Excess ABG Hemoglobin ABG Oxyhemoglobin ABG Potassium ABG Chloride ABG Glucose Carboxyhemoglobin Sodium Potassium Chloride Carbon Dioxide BUN Creatinine Glucose POC Glucose Lactic Acid 2.40 H* Calcium Phosphorus Magnesium Total Bilirubin AST ALT Lactate Dehydrogenase Total Protein Albumin Arterial Blood Glucose Urine WBC (Auto) Urine Creatinine Crossmatch 06/11/21 06/11/21 06/11/21 10:38 10:38 12:15 WBC RBC Hgb Hct MCV MCH MCHC RDW Plt Count Lymph % (Auto) [place] % (Auto) Lymph # (Auto) [place] # (Auto) Seg Neutrophils % Seg Neuts % (Manual) Lymphocytes % (Manual) Seg Neutrophils # Seg Neutrophils # Man Lymphocytes # (Manual) PT INR APTT Fibrinogen ABG pH POC ABG pCO2 POC ABG pO2 ABG pO2 ABG HCO3 ABG Base Excess ABG Hemoglobin ABG Oxyhemoglobin ABG Potassium ABG Chloride ABG Glucose Carboxyhemoglobin Sodium 147 H Potassium Chloride 118.1 H Carbon Dioxide 11 L BUN 53 H Creatinine 3.2 H D Glucose 104 H POC Glucose Lactic Acid 2.30 H* Calcium 5.9 L* D 5.9 L* Phosphorus 7.10 H Magnesium 1.60 L Total Bilirubin 4.20 H AST 2252 H ALT 540 H Lactate Dehydrogenase Total Protein 4.4 L Albumin 2.2 L Arterial Blood Glucose Urine WBC (Auto) Urine Creatinine Crossmatch 06/11/21 06/11/21 06/12/21 14:48 17:45 04:03 WBC 14.7 H RBC Hgb 8.9 L 9.4 L 9.2 L Hct 29.6 L 28.6 L 28.0 L MCV 77 L MCH 25 L MCHC RDW 21.2 H Plt Count 112 L Lymph % (Auto) 5.4 L [place] % (Auto) 8.6 H Lymph # (Auto) 0.8 L [place] # (Auto) 1.3 H Seg Neutrophils % 85.8 H Seg Neuts % (Manual) Lymphocytes % (Manual) Seg Neutrophils # 12.6 H Seg Neutrophils # Man Lymphocytes # (Manual) PT INR APTT Fibrinogen ABG pH POC ABG pCO2 POC ABG pO2 ABG pO2 ABG HCO3 ABG Base Excess ABG Hemoglobin ABG Oxyhemoglobin ABG Potassium ABG Chloride ABG Glucose Carboxyhemoglobin Sodium Potassium Chloride Carbon Dioxide BUN Creatinine Glucose POC Glucose Lactic Acid Calcium Phosphorus Magnesium Total Bilirubin AST ALT Lactate Dehydrogenase Total Protein Albumin Arterial Blood Glucose Urine WBC (Auto) Urine Creatinine Crossmatch 06/12/21 06/12/21 06/12/21 04:03 04:03 04:50 WBC RBC Hgb Hct MCV MCH MCHC RDW Plt Count Lymph % (Auto) [place] % (Auto) Lymph # (Auto) [place] # (Auto) Seg Neutrophils % Seg Neuts % (Manual) Lymphocytes % (Manual) Seg Neutrophils # Seg Neutrophils # Man Lymphocytes # (Manual) PT 24.1 H INR 2.10 H APTT Fibrinogen ABG pH POC ABG pCO2 POC ABG pO2 ABG pO2 127.8 H ABG HCO3 13.2 L ABG Base Excess -11.0 L ABG Hemoglobin 8.6 L ABG Oxyhemoglobin ABG Potassium ABG Chloride ABG Glucose Carboxyhemoglobin Sodium 148 H Potassium Chloride 117.8 H Carbon Dioxide 17 L BUN 72 H Creatinine 4.6 H Glucose POC Glucose Lactic Acid Calcium 6.1 L Phosphorus 6.70 H Magnesium Total Bilirubin 3.40 H AST 1494 H ALT 512 H Lactate Dehydrogenase Total Protein 4.4 L Albumin 2.2 L Arterial Blood Glucose Urine WBC (Auto) Urine Creatinine Crossmatch 06/13/21 06/13/21 06/13/21 00:16 04:00 08:11 WBC RBC 3.51 L Hgb 8.9 L Hct 26.2 L MCV 75 L MCH 25 L MCHC RDW 21.3 H Plt Count 96 L Lymph % (Auto) [place] % (Auto) Lymph # (Auto) [place] # (Auto) Seg Neutrophils % Seg Neuts % (Manual) Lymphocytes % (Manual) Seg Neutrophils # Seg Neutrophils # Man Lymphocytes # (Manual) PT INR APTT Fibrinogen ABG pH POC ABG pCO2 22.8 L POC ABG pO2 115.7 H ABG pO2 ABG HCO3 ABG Base Excess ABG Hemoglobin 7.2 L ABG Oxyhemoglobin ABG Potassium ABG Chloride 119.0 H ABG Glucose 102 H Carboxyhemoglobin Sodium Potassium Chloride Carbon Dioxide BUN Creatinine Glucose POC Glucose Lactic Acid Calcium Phosphorus Magnesium Total Bilirubin AST ALT Lactate Dehydrogenase Total Protein Albumin Arterial Blood Glucose 102 H Urine WBC (Auto) Urine Creatinine 28.0 H Crossmatch 06/13/21 06/13/21 08:11 12:54 WBC RBC Hgb Hct MCV MCH MCHC RDW Plt Count Lymph % (Auto) [place] % (Auto) Lymph # (Auto) [place] # (Auto) Seg Neutrophils % Seg Neuts % (Manual) Lymphocytes % (Manual) Seg Neutrophils # Seg Neutrophils # Man Lymphocytes # (Manual) PT INR APTT Fibrinogen ABG pH POC ABG pCO2 POC ABG pO2 ABG pO2 ABG HCO3 ABG Base Excess ABG Hemoglobin ABG Oxyhemoglobin ABG Potassium ABG Chloride ABG Glucose Carboxyhemoglobin Sodium 147 H Potassium Chloride 117.2 H Carbon Dioxide 15 L BUN 96 H Creatinine 6.1 H Glucose 107 H POC Glucose 107 H Lactic Acid Calcium 6.2 L Phosphorus Magnesium Total Bilirubin AST ALT Lactate Dehydrogenase Total Protein Albumin Arterial Blood Glucose Urine WBC (Auto) Urine Creatinine Crossmatch Allied health notes reviewed: nursing
--- NOTE | 2021-06-13 15:13 | Progress Note ---
Assessment and Plan Assessment and plan: #Acute upper GI bleed -resolved #Acute blood loss anemia-resolved #Hemorrhagic shock requiring pressors -resolved -s/p Rocephin, vancomycin and pressors -hemoglobin 9.2 today, will transfuse for hemoglobin less than 7 -received 5 units PRBCs total -continue Protonix drip -Endoscopy 06/10/21: Clipping of presumed location of bleed by GI -continue to trend H&H (8.926.2) #Acute encephalopathy -Hypoxic versus metabolic -Neurology consulted, recs appreciated -CT head showed ill-defined differentiation of joseph and white matter which could reflect global hypoxic ischemic injury -MRI and EEG pending -Poor prognosis, family updated about findings #Acute kidney injury -Unknown baseline, creatinine now 6.1 -Renal ultrasound negative -Nephrology following, recs appreciated #PEA arrest -ROSC achieved -Slow rewarming #Anion gap metabolic acidosis #Lactic acidosis -Resolved -Likely secondary to PEA arrest and upper GI bleed #Coagulopathy -will continue to trend INR -We will give vitamin K as needed #Elevated liver enzymes -AST, ALT, T bili downtrending -likely secondary to shock versus alcohol abuse (unclear patient history) -will continue to monitor #Acute hypoxic respiratory failure -Currently intubated, Pulmonary managing -Plan for extubation as mental status will allow Disposition Plan: Continue medical management Total Time Spent with Patient (Minutes): 45 minutes History Interval history: No acute events. Patient continues to be intubated and nonresponsive. Hospitalist Physical - Physical exam Narrative exam: GENERAL: Elderly woman. Lying in bed in no acute distress. HEENT: ETT and NG tube in place (NG tube draining dark blood). NECK: Right IJ CHEST/LUNGS: Coarse breath sounds bilaterally. HEART/CARDIOVASCULAR: RRR. No murmur, rubs or gallops appreciated. ABDOMEN: +BS. NT/ND. NEURO: Unable to assess. EXTREMITIES: No cyanosis, clubbing or edema. PSYCH: Unable to assess - Constitutional Vitals: Temp Pulse Resp BP Pulse Ox 96.8 F L 72 19 105/73 100 06/13/21 09:19 06/13/21 13:30 06/13/21 13:30 06/13/21 13:30 06/13/21 13:30 General appearance: Present: no acute distress (Currently sedated) HEART Score - HEART Score EKG: Normal Age: 45-65 Troponin: Troponin T < 0.010 ng/mL (0.00-0.029) 06/09/21 03:27 - Critical Actions Critical Actions: 4-6 pts:12-16.6% risk of adverse cardiac event. Should be admitted Results - Labs CBC & Chem 7: 06/13/21 08:11 06/13/21 08:11 Labs: Laboratory Last Values WBC 10.7 K/mm3 (4.5-11.0) 06/13/21 08:11 RBC 3.51 M/mm3 (3.65-5.03) L 06/13/21 08:11 Hgb 8.9 gm/dl (10.1-14.3) L 06/13/21 08:11 Hct 26.2 % (30.3-42.9) L 06/13/21 08:11 MCV 75 fl (79-97) L 06/13/21 08:11 MCH 25 pg (28-32) L 06/13/21 08:11 MCHC 34 % (30-34) 06/13/21 08:11 RDW 21.3 % (13.2-15.2) H 06/13/21 08:11 Plt Count 96 K/mm3 (140-440) L 06/13/21 08:11 Lymph % (Auto) 5.4 % (13.4-35.0) L 06/12/21 04:03 [place] % (Auto) 8.6 % (0.0-7.3) H 06/12/21 04:03 Eos % (Auto) 0.1 % (0.0-4.3) 06/12/21 04:03 Baso % (Auto) 0.1 % (0.0-1.8) 06/12/21 04:03 Lymph # (Auto) 0.8 K/mm3 (1.2-5.4) L 06/12/21 04:03 [place] # (Auto) 1.3 K/mm3 (0.0-0.8) H 06/12/21 04:03 Eos # (Auto) 0.0 K/mm3 (0.0-0.4) 06/12/21 04:03 Baso # (Auto) 0.0 K/mm3 (0.0-0.1) 06/12/21 04:03 Add Manual Diff Complete 06/09/21 12:27 Total Counted 100 06/09/21 12:27 Seg Neutrophils % 85.8 % (40.0-70.0) H 06/12/21 04:03 Seg Neuts % (Manual) 87.0 % (40.0-70.0) H 06/09/21 12:27 Band Neutrophils % 4.0 % 06/09/21 12:27 Lymphocytes % (Manual) 5.0 % (13.4-35.0) L 06/09/21 12:27 Monocytes % (Manual) 4.0 % (0.0-7.3) 06/09/21 12:27 Nucleated RBC % Not Reportable 06/09/21 12:27 Seg Neutrophils # 12.6 K/mm3 (1.8-7.7) H 06/12/21 04:03 Seg Neutrophils # Man 12.4 K/mm3 (1.8-7.7) H 06/09/21 12:27 Band Neutrophils # 0.6 K/mm3 06/09/21 12:27 Lymphocytes # (Manual) 0.7 K/mm3 (1.2-5.4) L 06/09/21 12:27 Abs React Lymphs (Man) 0.0 K/mm3 06/09/21 12:27 Monocytes # (Manual) 0.6 K/mm3 (0.0-0.8) 06/09/21 12:27 Eosinophils # (Manual) 0.0 K/mm3 (0.0-0.4) 06/09/21 12:27 Basophils # (Manual) 0.0 K/mm3 (0.0-0.1) 06/09/21 12:27 Metamyelocytes # 0.0 K/mm3 06/09/21 12:27 Myelocytes # 0.0 K/mm3 06/09/21 12:27 Promyelocytes # 0.0 K/mm3 06/09/21 12: Blast Cells # 0.0 K/mm3 06/09/21 12:27 WBC Morphology Not Reportable 06/09/21 12:27 WBC Morphology TNR 06/09/21 12:27 Hypersegmented Neuts Not Reportable 06/09/21 12:27 Hyposegmented Neuts Not Reportable 06/09/21 12:27 Hypogranular Neuts Not Reportable 06/09/21 12:27 Smudge Cells Not Reportable 06/09/21 12:27 Toxic Granulation Not Reportable 06/09/21 12:27 Toxic Vacuolation Not Reportable 06/09/21 12:27 Dohle Bodies Not Reportable 06/09/21 12:27 Pelger-Huet Anomaly Not Reportable 06/09/21 12:27 Gui Rods Not Reportable 06/09/21 12:27 Platelet Estimate Not Reportable 06/09/21 12:27 Clumped Platelets Not Reportable 06/09/21 12:27 Plt Clumps, EDTA Not Reportable 06/09/21 12:27 Large Platelets Not Reportable 06/09/21 12:27 Giant Platelets Not Reportable 06/09/21 12:27 Platelet Satelliting Not Reportable 06/09/21 12:27 Plt Morphology Comment Not Reportable 06/09/21 12:27 RBC Morphology Not Reportable 06/09/21 12:27 Dimorphic RBCs Not Reportable 06/09/21 12:27 Polychromasia Not Reportable 06/09/21 12:27 Hypochromasia 2+ 06/09/21 12:27 Poikilocytosis 1+ 06/09/21 12:27 Anisocytosis 2+ 06/09/21 12:27 Microcytosis Not Reportable 06/09/21 12:27 Macrocytosis Not Reportable 06/09/21 12:27 Spherocytes Not Reportable 06/09/21 12:27 Pappenheimer Bodies Not Reportable 06/09/21 12:27 Sickle Cells Not Reportable 06/09/21 12:27 Target Cells Not Reportable 06/09/21 12:27 Tear Drop Cells Not Reportable 06/09/21 12:27 Ovalocytes Not Reportable 06/09/21 12:27 Helmet Cells Not Reportable 06/09/21 12:27 [place] Bodies Not Reportable 06/09/21 12:27 [place] Rings Not Reportable 06/09/21 12:27 Leo Cells 1+ 06/09/21 12:27 Bite Cells Not Reportable 06/09/21 12:27 Crenated Cell Not Reportable 06/09/21 12:27 Elliptocytes Few 06/09/21 12:27 Acanthocytes (Spur) Not Reportable 06/09/21 12:27 Rouleaux Not Reportable 06/09/21 12:27 Hemoglobin C Crystals Not Reportable 06/09/21 12:27 Schistocytes Not Reportable 06/09/21 12:27 Malaria parasites Not Reportable 06/09/21 12:27 Narendra Bodies Not Reportable 06/09/21 12:27 Hem Pathologist Commnt No 06/09/21 12:27 PT 24.1 Sec. (12.2-14.9) H 06/12/21 04:03 INR 2.10 (0.87-1.13) H 06/12/21 04:03 APTT 52.6 Sec. (24.2-36.6) H 06/09/21 12:27 Fibrinogen 83 mg/dl (211-480) L* 06/09/21 12:27 ABG pH 7.384 (7.320-7.450) 06/13/21 04:00 POC ABG pCO2 22.8 mmHg (32.0-48.0) L 06/13/21 04:00 ABG pCO2 24.1 mm Hg 06/12/21 04:50 POC ABG pO2 115.7 mmHg (83-108) H 06/13/21 04:00 ABG pO2 127.8 mm Hg (80.0-90.0) H 06/12/21 04:50 POC ABG HCO3 13.3 06/13/21 04:00 ABG HCO3 13.2 mmol/L (20.0-26.0) L 06/12/21 04:50 ABG O2 Saturation 98.5 (0-100) 06/13/21 04:00 ABG O2 Content 12.0 (0.0-44) 06/12/21 04:50 POC ABG Base Excess -10.6 06/13/21 04:00 ABG Base Excess -11.0 mmol/L (-2.0-3.0) L 06/12/21 04:50 ABG Hemoglobin 7.2 (12.0-17.5) L 06/13/21 04:00 ABG Oxyhemoglobin 96.9 (94-98) 06/13/21 04:00 ABG Carboxyhemoglobin 1.4 % (0.0-5.0) 06/12/21 04:50 ABG Methemoglobin 0.3 (0.0-1.5) 06/13/21 04:00 ABG Sodium 142.0 mmol/L (136.0-145.0) 06/13/21 04:00 ABG Potassium 3.7 mmol/L (3.40-4.50) 06/13/21 04:00 ABG Chloride 119.0 mmol/L (98-107) H 06/13/21 04:00 ABG Glucose 102 mg/dL (65-95) H 06/13/21 04:00 Oxyhemoglobin 96.6 % (95.0-99.0) 06/12/21 04:50 Carboxyhemoglobin 1.3 (0.5-1.5) 06/13/21 04:00 FiO2 30 % 06/12/21 04:50 FiO2 % 30.0 06/13/21 04:00 Sodium 147 mmol/L (137-145) H 06/13/21 08:11 Potassium 4.2 mmol/L (3.6-5.0) 06/13/21 08:11 Chloride 117.2 mmol/L (98-107) H 06/13/21 08:11 Carbon Dioxide 15 mmol/L (22-30) L 06/13/21 08:11 Anion Gap 19 mmol/L 06/13/21 08:11 BUN 96 mg/dL (7-17) H 06/13/21 08:11 Creatinine 6.1 mg/dL (0.6-1.2) H 06/13/21 08:11 Estimated GFR 9 ml/min 06/13/21 08:11 BUN/Creatinine Ratio 16 % 06/13/21 08:11 Glucose 107 mg/dL (65-100) H 06/13/21 08:11 POC Glucose 107 mg/dL (70-105) H 06/13/21 12:54 Lactic Acid 1.70 mmol/L (0.7-2.0) 06/11/21 12:12 Calcium 6.2 mg/dL (8.4-10.2) L 06/13/21 08:11 Phosphorus 6.70 mg/dL (2.5-4.5) H 06/12/21 04:03 Magnesium 1.70 mg/dL (1.7-2.3) 06/12/21 04:03 Total Bilirubin 3.40 mg/dL (0.1-1.2) H 06/12/21 04:03 AST 1494 units/L (5-40) H 06/12/21 04:03 ALT 512 units/L (7-56) H 06/12/21 04:03 Alkaline Phosphatase 94 units/L (35-129) 06/12/21 04:03 Ammonia 32.0 umol/L (25-60) 06/11/21 14:48 Lactate Dehydrogenase 2208 units/L (91-180) H 06/09/21 11:44 Troponin T < 0.010 ng/mL (0.00-0.029) 06/09/21 03:27 Total Protein 4.4 g/dL (6.3-8.2) L 06/12/21 04:03 Albumin 2.2 g/dL (3.9-5) L 06/12/21 04:03 Albumin/Globulin Ratio 1.0 % 06/12/21 04:03 TSH 0.315 mlU/mL (0.270-4.200) 06/11/21 14:48 Arterial Blood Glucose 102 mg/dL (65-95) H 06/13/21 04:00 Urine Color Yellow (Yellow) 06/10/21 08:47 Urine Turbidity Cloudy (Clear) 06/10/21 08:47 Urine pH 5.0 (5.0-7.0) 06/10/21 08:47 Ur Specific [place] 1.016 (1.003-1.030) 06/10/21 08:47 Urine Protein 100 mg/dl mg/dL (Negative) 06/10/21 08:47 Urine Glucose (UA) 150 mg/dL (Negative) 06/10/21 08:47 Urine Ketones Neg mg/dL (Negative) 06/10/21 08:47 Urine Blood Lg (Negative) 06/10/21 08:47 Urine Nitrite Neg (Negative) 06/10/21 08:47 Urine Bilirubin Neg (Negative) 06/10/21 08:47 Urine Urobilinogen < 2.0 mg/dL (<2.0) 06/10/21 08:47 Ur Leukocyte Esterase Tr (Negative) 06/10/21 08:47 Urine WBC (Auto) 23.0 /HPF (0.0-6.0) H 06/10/21 08:47 Urine RBC (Auto) 67.0 /HPF (0.0-6.0) 06/10/21 08:47 U Epithel Cells (Auto) 5.0 /HPF (0-13.0) 06/10/21 08:47 Urine Bacteria (Auto) 1+ /HPF (Negative) 06/10/21 08:47 Ur Transition Epith Cell 2 /HPF 06/10/21 08:47 Hyaline Casts 1 /LPF 06/10/21 08:47 Urine Mucus Few /HPF 06/10/21 08:47 Urine Creatinine 28.0 mg/dL (0.1-20.0) H 06/13/21 00:16 Urine Sodium 109 mmol/L 06/13/21 00:16 Urine Opiates Screen Presumptive negative 06/13/21 00:16 Urine Methadone Screen Presumptive negative 06/13/21 00:16 Ur Barbiturates Screen Presumptive negative 06/13/21 00:16 Ur Phencyclidine Scrn Presumptive negative 06/13/21 00:16 Ur Amphetamines Screen Presumptive negative 06/13/21 00:16 U Benzodiazepines Scrn Presumptive positive 06/13/21 00:16 Urine Cocaine Screen Presumptive negative 06/13/21 00:16 U Marijuana (THC) Screen Presumptive negative 06/13/21 00:16 Drugs of Abuse Note Disclamer 06/13/21 00:16 Coronavirus (PCR) Negative (Negative) 06/09/21 13:12 Blood Type B POSITIVE 06/09/21 04:00 Antibody Screen Negative 06/09/21 04:00 Crossmatch See Detail 06/09/21 04:00 Microbiology: Microbiology 06/09/21 03:59 Peripheral/Venous Blood Culture - Preliminary NO GROWTH AFTER 4 DAYS 06/12/21 08:59 Peripheral/Venous Blood Culture - Preliminary NO GROWTH AFTER 24 HOURS 06/12/21 08:59 Peripheral/Venous Blood Culture - Preliminary NO GROWTH AFTER 24 HOURS 06/10/21 08:47 Urine,[place] Urine Culture - Final NO GROWTH AFTER 48 HOURS Active Medications - Current Medications Current Medications: Generic Name Dose Route Start Last Admin Trade Name Freq PRN Reason Stop Dose Admin Dextrose 50 ml 06/09/21 11:13 Dextrose 50% In Water (25gm) 50 Ml Syringe IV Q30MIN PRN Hypoglycemia Protocol Hydrophilic Ointment 1 applic 06/09/21 03:26 06/12/21 20:00 Lip Therapy Vaseline TP 1 applic Q2HR PRN Administration Dry Lips Pantoprazole Sodium 80 mg/ 100 mls @ 10 mls/hr 06/09/21 12:00 06/13/21 13:39 Sodium Chloride IV 8 mg/hr DIRECT GABINO 10 mls/hr Administration 8 MG/HR Multi-Ingred Cream/Lotion/Oil/Oint 1 applic 06/09/21 03:26 06/12/21 20:05 Mineral Oil/Petrolatum, White Ophth Oint 3.5 Gm OU 1 applic Q4HR PRN Administration Dry Eye(s) Sodium Chloride 10 ml 06/09/21 22:00 06/13/21 10:00 Sodium Chloride 0.9% 10 Ml Flush Syringe IV 10 ml BID GABINO Administration Sodium Chloride 10 ml 06/09/21 11:13 Sodium Chloride 0.9% 10 Ml Flush Syringe IV PRN PRN LINE FLUSH Nutrition/Malnutrition Assess - Dietary Evaluation Nutrition/Malnutrition Findings: Nutrition Notes Start: 06/11/21 15:21 Freq: Status: Active Protocol: Document 06/13/21 10:09 GB (Rec: 06/13/21 10:14 GB [id number]) Nutrition Notes Initial or Follow up Reassessment Other Pertinent Diagnosis GI bleed, intubated Current Diet NPO Labs/Tests 06/13: Na 147, BUN 96, creatinine 6.1, glucose 107, Ca 6.2 Pertinent Medications reviewed Height 5 ft 3 in Weight 57.107 kg [place] Body Weight (kg) 52.27 BMI 22.3 Weight change and time frame no changes recorded Weight Status Appropriate Subjective/Other Information intubation continues, currently sedated, GI bleed, NPO x 4days Percent of energy/protein needs met: currently 0% with NPO Burn Absent Trauma Absent GI Symptoms Other Food Allergy No Current % PO Negligible Minimum of two criteria No #1 Nutrition Diagnosis Inadequate energy intake Comments: 06/13: Intubation continues, NPOx4 days Etiology Intubated, GI Bleed As Evidenced by Signs and Symptoms NPO, intubation Diagnosis Progress(for reassessment Continues documentation) Is patient on ventilator? Yes Is Patient Ambulatory and/or Out of Bed No REE-([facility]-confined to bed) 1343.208 Kcal/Kg value to use for calculation 25 Approximate Energy Requirements Using 1428 kcal/Kg Calculation Used for Recommendations Kcal/kg Additional Notes Protein 1-1.2 g/kg @ 57k- 68g Fluids: 1 ml/kcal or per MD Nutrition Intervention Change Diet Order: Continue NPO, if extubated begin Clear liquids (no red colored clears) Nutrition Support: Recommend TPN for 3-5 days to allow GI Bleed healing (need central line) 06/13: no change to recommendation Goal #1 Extubate and advance diet to clear liquids Goal #2 If intubation continues, begin TPN post central line placement Follow-Up By: 06/15/21 Additional Comments f/u: TPN started or extubated and diet advanced clear liquids
--- NOTE | 2021-06-13 15:17 | Event Note ---
Date: 06/13/21 Around noon today, I had a family meeting with the patients' Daughter Radha and Sister An Low ([phone]). I updated them of her current medical issues and recent imaging results. They would like to continue care pending MRI results and eligibility consultant recommendations. Will call with updates in the future.
[2021-06-13 15:28] LABS: INR 1.44 (0.87-1.13)
--- NOTE | 2021-06-13 18:49 | Gastroenterology Progress Note ---
Assessment and Plan 1 Upper gi bleed - H/H remains overall stable, would cont on PPI drip for now and transition to bid dosing in 1-2 days. conservative management otherwise from gi at this time unless there is a change in clinical course. Subjective Date of service: 06/13/21 Principal diagnosis: UGI bleed Interval history: no melena/hematochezia episodes today per pt's nurse. Objective - Exam Narrative Exam: gen: intubated, unresponsive abd: mod dist lungs: ctab - Constitutional Vitals: Temp Pulse Resp BP Pulse Ox 96.8 F L 73 23 140/89 100 06/13/21 09:19 06/13/21 18:30 06/13/21 18:30 06/13/21 18:30 06/13/21 18:30 - Labs CBC & Chem 7: 06/13/21 08:11 06/13/21 08:11 Labs: Laboratory Results - last 24 hr 06/12/21 06/13/21 06/13/21 23:38 00:16 04:00 WBC RBC Hgb Hct MCV MCH MCHC RDW Plt Count PT INR ABG pH 7.384 POC ABG pCO2 22.8 L POC ABG pO2 115.7 H POC ABG HCO3 13.3 ABG O2 Saturation 98.5 POC ABG Base Excess -10.6 ABG Hemoglobin 7.2 L ABG Oxyhemoglobin 96.9 ABG Methemoglobin 0.3 ABG Sodium 142.0 ABG Potassium 3.7 ABG Chloride 119.0 H ABG Glucose 102 H Carboxyhemoglobin 1.3 FiO2 % 30.0 Sodium Potassium Chloride Carbon Dioxide Anion Gap BUN Creatinine Estimated GFR BUN/Creatinine Ratio Glucose POC Glucose 90 Calcium Arterial Blood Glucose 102 H Urine Creatinine 28.0 H Urine Sodium 109 Urine Opiates Screen Presumptive negative Urine Methadone Screen Presumptive negative Ur Barbiturates Screen Presumptive negative Ur Phencyclidine Scrn Presumptive negative Ur Amphetamines Screen Presumptive negative U Benzodiazepines Scrn Presumptive positive Urine Cocaine Screen Presumptive negative U Marijuana (THC) Screen Presumptive negative Drugs of Abuse Note Disclamer 06/13/21 06/13/21 06/13/21 05:56 08:11 08:11 WBC 10.7 RBC 3.51 L Hgb 8.9 L Hct 26.2 L MCV 75 L MCH 25 L MCHC 34 RDW 21.3 H Plt Count 96 L PT INR ABG pH POC ABG pCO2 POC ABG pO2 POC ABG HCO3 ABG O2 Saturation POC ABG Base Excess ABG Hemoglobin ABG Oxyhemoglobin ABG Methemoglobin ABG Sodium ABG Potassium ABG Chloride ABG Glucose Carboxyhemoglobin FiO2 % Sodium 147 H Potassium 4.2 Chloride 117.2 H Carbon Dioxide 15 L Anion Gap 19 BUN 96 H Creatinine 6.1 H Estimated GFR 9 BUN/Creatinine Ratio 16 Glucose 107 H POC Glucose 92 Calcium 6.2 L Arterial Blood Glucose Urine Creatinine Urine Sodium Urine Opiates Screen Urine Methadone Screen Ur Barbiturates Screen Ur Phencyclidine Scrn Ur Amphetamines Screen U Benzodiazepines Scrn Urine Cocaine Screen U Marijuana (THC) Screen Drugs of Abuse Note 06/13/21 06/13/21 12:54 14:17 WBC RBC Hgb Hct MCV MCH MCHC RDW Plt Count PT 18.2 H INR 1.44 H ABG pH POC ABG pCO2 POC ABG pO2 POC ABG HCO3 ABG O2 Saturation POC ABG Base Excess ABG Hemoglobin ABG Oxyhemoglobin ABG Methemoglobin ABG Sodium ABG Potassium ABG Chloride ABG Glucose Carboxyhemoglobin FiO2 % Sodium Potassium Chloride Carbon Dioxide Anion Gap BUN Creatinine Estimated GFR BUN/Creatinine Ratio Glucose POC Glucose 107 H Calcium Arterial Blood Glucose Urine Creatinine Urine Sodium Urine Opiates Screen Urine Methadone Screen Ur Barbiturates Screen Ur Phencyclidine Scrn Ur Amphetamines Screen U Benzodiazepines Scrn Urine Cocaine Screen U Marijuana (THC) Screen Drugs of Abuse Note
--- NOTE | 2021-06-14 05:28 | XRay Report ---
CHEST 1 VIEW INDICATION / CLINICAL INFORMATION: follow up respiratory failure STUDY TIME: 449 COMPARISON: 06/13/2021 FINDINGS: SUPPORT DEVICES: Stable HEART / MEDIASTINUM: Interstitial infiltrates continue with improvement noted. LUNGS / PLEURA: No significant pulmonary or pleural abnormality. No pneumothorax. ADDITIONAL FINDINGS: No significant additional findings. Signer Name: Brayan Armenta MD Signed: 06/14/2021 5:24 AM Workstation Name: [id number]
[2021-06-14] MEDS: PANTOPRAZOLE 80 MG in SODIUM CHLORIDE 0.9% 100 ML IV SCH (09:00)
[2021-06-14 09:20] LABS: Hematocrit 27.6 % (30.3-42.9); Hemoglobin 9.3 gm/dl (10.1-14.3); Mean Corpuscular HGB Conc 34 % (30-34); Mean Corpuscular Volume 75 fl (79-97); Platelet Count 137 K/mm3 (140-440); Red Blood Count 3.68 M/mm3 (3.65-5.03)
[2021-06-14 09:25] LABS: Red Cell Distribution Width 21.9 % (13.2-15.2)
[2021-06-14 09:26] LABS: Albumin 2.3 g/dL (3.9-5); Calcium 6.7 mg/dL (8.4-10.2)
[2021-06-14] MEDS ORDERED: fentaNYL 100 MCG/2 ML INJ IV NR (09:30)
[2021-06-14 10:07] LABS: INR 1.3 (0.87-1.13)
[2021-06-14 11:53] LABS: Amphetamine Screen,Urine Negative; Cocaine Screen,Urine Negative; Methadone Screen,Urine Negative; Opiate Screen,Urine Negative
[2021-06-14 12:10] LABS: Benzodiazepines Screen,Urine Positive; Cannabinoid Screen,Urine Positive
--- NOTE | 2021-06-14 12:43 | Procedure Note ---
Date of procedure: 06/14/21 Pre-op diagnosis: Renal Failure Post-op diagnosis: same Procedure: Right groin fem line placement for Dialysis Right groin prepped and using ultrasound guidance using and seldinger technique trialysis catheter was placed in right groin and sutured without difficulty. Cleaned and draped by nursing. Anesthesia: local Surgeon: MICKI VO Estimated blood loss: none Pathology: none Specimen disposition: other Condition: critical Disposition: ICU
--- NOTE | 2021-06-14 13:06 | Progress Note ---
Assessment and Plan 60 y/o female with cardiac arrest, intubated found to have UPPER GI bleed but no exact source of bleeding found 06/14/21: UDS still positive for benzo's. Spoke with renal and went ahead and put HD catheter in (spoke with all of family on speaker phone) in anticipation of possible HD. Will check daily UDS until clear as this could effect mental state, along with uremia and possible anoxic brain injury. Await MRI and await Neurology input. Guarded prognosis. 06/13/21: Will check UDS daily to see if benzo's continue to hang around. Not sure if dialysis can help but may need this to clear out drugs to see if patient will wake up. Renal has already seen today so await there assessment tomorrow after viewing my note. repeat UDS again as patient is still making urine. No new neurology notes or follow up. MRI not done, head CT suggests anoxic brain injury but not definite. Still think that all other metabolic derangements would need to be addressed. Guarded prognosis. 06/12/21: Reviewed chart and Neurology note. Will send UDS to make sure benzo's have cleared as she was on a versed drip. Discontinued all mind altering therapy. Very guarded prognosis. Patient may have been down longer than known with CPR. 1. Discontinue all sedation 2. Attempt PSV and then extubate 3. Follow up GI recs 4. Will continue to follow, with serial H/H's. CCT 31 minutes. Subjective Date of service: 06/14/21 Principal diagnosis: UGI bleed Interval history: Remains unresponsive on vent. Renal function is worsening and urine out put is falling off. Objective Vital Signs - 12hr 06/14/21 06/14/21 06/14/21 02:00 04:00 04:09 Pulse Rate 95 H Pulse Rate [ From Monitor] Respiratory 18 18 Rate Blood Pressure 123/80 O2 Sat by Pulse 100 100 97 Oximetry 06/14/21 06/14/21 06/14/21 04:20 05:00 06:00 Pulse Rate 95 H 93 H 90 Pulse Rate [ From Monitor] Respiratory 26 H 24 24 Rate Blood Pressure 99/67 97/66 O2 Sat by Pulse 98 98 Oximetry 06/14/21 06/14/21 06/14/21 06:10 06:20 06:30 Pulse Rate 91 H 105 H 100 H Pulse Rate [ From Monitor] Respiratory 24 26 H 27 H Rate Blood Pressure 97/66 97/66 97/66 O2 Sat by Pulse 100 100 100 Oximetry 06/14/21 06/14/21 06/14/21 06:40 06:50 07:00 Pulse Rate 102 H 102 H 103 H Pulse Rate [ From Monitor] Respiratory 26 H 25 H 25 H Rate Blood Pressure 97/66 97/66 112/75 O2 Sat by Pulse 100 99 Oximetry 06/14/21 06/14/21 06/14/21 07:10 07:20 07:30 Pulse Rate 104 H 107 H 112 H Pulse Rate [ From Monitor] Respiratory 26 H 29 H 31 H Rate Blood Pressure 112/75 112/75 112/75 O2 Sat by Pulse 99 98 98 Oximetry 06/14/21 06/14/21 06/14/21 07:40 07:50 08:00 Pulse Rate 112 H 112 H 115 H Pulse Rate [ From Monitor] Respiratory 30 H 28 H 31 H Rate Blood Pressure 112/75 112/75 127/90 O2 Sat by Pulse 98 98 Oximetry 06/14/21 06/14/21 06/14/21 08:04 08:10 08:20 Pulse Rate 123 H 122 H 120 H Pulse Rate [ From Monitor] Respiratory 40 H 35 H Rate Blood Pressure 127/90 127/90 112/75 O2 Sat by Pulse 99 98 98 Oximetry 06/14/21 06/14/21 06/14/21 08:30 08:40 08:50 Pulse Rate 124 H 125 H 124 H Pulse Rate [ 120 H From Monitor] Respiratory 56 H 56 H 46 H Rate Blood Pressure 112/75 112/75 127/90 O2 Sat by Pulse 99 99 99 Oximetry 06/14/21 06/14/21 06/14/21 09:00 09:10 09:20 Pulse Rate 125 H 123 H 119 H Pulse Rate [ From Monitor] Respiratory 55 H 55 H 27 H Rate Blood Pressure 132/82 132/82 132/82 O2 Sat by Pulse 97 99 99 Oximetry 06/14/21 06/14/21 06/14/21 09:30 09:40 09:50 Pulse Rate 118 H 119 H 120 H Pulse Rate [ From Monitor] Respiratory 31 H 33 H 35 H Rate Blood Pressure 132/82 132/82 132/82 O2 Sat by Pulse 99 99 100 Oximetry 09/06/14/21 06/14/21 10:00 10:10 10:20 Pulse Rate 119 H 121 H 122 H Pulse Rate [ From Monitor] Respiratory 35 H 37 H 36 H Rate Blood Pressure 135/94 135/94 135/94 O2 Sat by Pulse 99 100 100 Oximetry 06/14/21 06/14/21 06/14/21 10:30 10:40 10:50 Pulse Rate 123 H 123 H 123 H Pulse Rate [ From Monitor] Respiratory 39 H 46 H 47 H Rate Blood Pressure 135/94 135/94 135/94 O2 Sat by Pulse 100 99 99 Oximetry 06/14/21 06/14/21 06/14/21 11:00 11:10 12:29 Pulse Rate 123 H 124 H 113 H Pulse Rate [ From Monitor] Respiratory 42 H 45 H Rate Blood Pressure 141/95 141/95 140/96 O2 Sat by Pulse 97 99 99 Oximetry CBC and BMP: 06/14/21 08:45 06/14/21 08:45 ABG, PT/INR, D-dimer: ABG ABG pH 7.507 (7.320-7.450) H 06/14/21 04:35 POC ABG pCO2 15.9 mmHg (32.0-48.0) L 06/14/21 04:35 ABG pCO2 24.1 mm Hg 06/12/21 04:50 POC ABG pO2 121.2 mmHg (83-108) H 06/14/21 04:35 ABG pO2 127.8 mm Hg (80.0-90.0) H 06/12/21 04:50 POC ABG HCO3 12.3 06/14/21 04:35 ABG O2 Saturation 99.1 (0-100) 06/14/21 04:35 PT/INR, D-dimer PT 16.8 Sec. (12.2-14.9) H 06/14/21 08:45 INR 1.30 (0.87-1.13) H 06/14/21 08:45 Abnormal lab findings: Abnormal Labs 06/09/21 06/09/21 06/09/21 03:27 03:42 03:59 WBC RBC 1.57 L Hgb 3.0 L* Hct 11.8 L* MCV 75 L MCH 19 L MCHC 26 L RDW 21.7 H Plt Count 109 L Lymph % (Auto) 9.7 L [place] % (Auto) 8.5 H Lymph # (Auto) 0.9 L [place] # (Auto) Seg Neutrophils % 81.2 H Seg Neuts % (Manual) Lymphocytes % (Manual) Seg Neutrophils # Seg Neutrophils # Man Lymphocytes # (Manual) PT INR APTT Fibrinogen ABG pH POC ABG pCO2 POC ABG pO2 ABG pO2 ABG HCO3 ABG Base Excess ABG Hemoglobin ABG Oxyhemoglobin ABG Potassium ABG Chloride ABG Glucose Carboxyhemoglobin Sodium Potassium Chloride 95.2 L Carbon Dioxide 8 L* BUN 18 H Creatinine Glucose 540 H* POC Glucose Lactic Acid 28.20 H* Calcium 11.5 H Phosphorus Magnesium Total Bilirubin AST 411 H ALT 106 H Lactate Dehydrogenase Total Protein 4.9 L Albumin 2.4 L Arterial Blood Glucose Arterial Blood Ionized Calcium Urine WBC (Auto) Urine Creatinine Crossmatch 06/09/21 06/09/21 06/09/21 03:59 04:00 04:04 WBC RBC Hgb Hct MCV MCH MCHC RDW Plt Count Lymph % (Auto) [place] % (Auto) Lymph # (Auto) [place] # (Auto) Seg Neutrophils % Seg Neuts % (Manual) Lymphocytes % (Manual) Seg Neutrophils # Seg Neutrophils # Man Lymphocytes # (Manual) PT 34.3 H INR 3.36 H APTT 66.3 H* Fibrinogen ABG pH 6.845 L POC ABG pCO2 POC ABG pO2 116.6 H ABG pO2 ABG HCO3 ABG Base Excess ABG Hemoglobin 2.6 L ABG Oxyhemoglobin 90.6 L ABG Potassium 3.0 L ABG Chloride ABG Glucose 334 H Carboxyhemoglobin 1.8 H Sodium Potassium Chloride Carbon Dioxide BUN Creatinine Glucose POC Glucose Lactic Acid Calcium Phosphorus Magnesium Total Bilirubin AST ALT Lactate Dehydrogenase Total Protein Albumin Arterial Blood Glucose 334 H Arterial Blood Ionized Calcium Urine WBC (Auto) Urine Creatinine Crossmatch See Detail 06/09/21 06/09/21 06/09/21 05:16 11:42 11:44 WBC RBC Hgb Hct MCV MCH MCHC RDW Plt Count Lymph % (Auto) [place] % (Auto) Lymph # (Auto) [place] # (Auto) Seg Neutrophils % Seg Neuts % (Manual) Lymphocytes % (Manual) Seg Neutrophils # Seg Neutrophils # Man Lymphocytes # (Manual) PT INR APTT Fibrinogen ABG pH POC ABG pCO2 POC ABG pO2 ABG pO2 ABG HCO3 ABG Base Excess ABG Hemoglobin ABG Oxyhemoglobin ABG Potassium ABG Chloride ABG Glucose Carboxyhemoglobin Sodium Potassium Chloride 109.5 H Carbon Dioxide 4 L* BUN 19 H Creatinine Glucose 158 H POC Glucose 191 H Lactic Acid 25.20 H* Calcium 7.8 L D Phosphorus Magnesium Total Bilirubin AST ALT Lactate Dehydrogenase 2208 H Total Protein Albumin Arterial Blood Glucose Arterial Blood Ionized Calcium Urine WBC (Auto) Urine Creatinine Crossmatch 06/09/21 06/09/21 06/10/21 12:27 12:27 04:21 WBC 14.2 H RBC 3.58 L Hgb 8.9 L D Hct 29.9 L D MCV MCH 25 L MCHC RDW 22.0 H Plt Count 94 L Lymph % (Auto) [place] % (Auto) Lymph # (Auto) [place] # (Auto) Seg Neutrophils % Seg Neuts % (Manual) 87.0 H Lymphocytes % (Manual) 5.0 L Seg Neutrophils # Seg Neutrophils # Man 12.4 H Lymphocytes # (Manual) 0.7 L PT 36.0 H INR 3.58 H APTT 52.6 H Fibrinogen 83 L* ABG pH 7.323 L POC ABG pCO2 POC ABG pO2 ABG pO2 152.9 H ABG HCO3 12.6 L ABG Base Excess -12.0 L ABG Hemoglobin 9.2 L ABG Oxyhemoglobin ABG Potassium ABG Chloride ABG Glucose Carboxyhemoglobin Sodium Potassium Chloride Carbon Dioxide BUN Creatinine Glucose POC Glucose Lactic Acid Calcium Phosphorus Magnesium Total Bilirubin AST ALT Lactate Dehydrogenase Total Protein Albumin Arterial Blood Glucose Arterial Blood Ionized Calcium Urine WBC (Auto) Urine Creatinine Crossmatch 06/10/21 06/10/21 06/10/21 04:27 04:27 06:59 WBC 14.1 H RBC Hgb Hct MCV MCH 25 L MCHC RDW 20.0 H Plt Count 99 L Lymph % (Auto) 4.2 L [place] % (Auto) 8.6 H Lymph # (Auto) 0.6 L [place] # (Auto) 1.2 H Seg Neutrophils % 86.6 H Seg Neuts % (Manual) Lymphocytes % (Manual) Seg Neutrophils # 12.2 H Seg Neutrophils # Man Lymphocytes # (Manual) PT INR APTT Fibrinogen ABG pH POC ABG pCO2 POC ABG pO2 ABG pO2 ABG HCO3 ABG Base Excess ABG Hemoglobin ABG Oxyhemoglobin ABG Potassium ABG Chloride ABG Glucose Carboxyhemoglobin Sodium 146 H Potassium 3.4 L Chloride 115.2 H Carbon Dioxide 14 L D BUN 30 H Creatinine 1.9 H D Glucose 122 H POC Glucose Lactic Acid 4.60 H* Calcium 7.4 L Phosphorus Magnesium Total Bilirubin 7.00 H AST 2708 H ALT 522 H Lactate Dehydrogenase Total Protein 4.8 L Albumin 2.4 L Arterial Blood Glucose Arterial Blood Ionized Calcium Urine WBC (Auto) Urine Creatinine Crossmatch 06/10/21 06/10/21 06/10/21 06:59 08:23 08:47 WBC RBC Hgb Hct MCV MCH MCHC RDW Plt Count Lymph % (Auto) [place] % (Auto) Lymph # (Auto) [place] # (Auto) Seg Neutrophils % Seg Neuts % (Manual) Lymphocytes % (Manual) Seg Neutrophils # Seg Neutrophils # Man Lymphocytes # (Manual) PT 26.8 H INR 2.42 H APTT Fibrinogen ABG pH POC ABG pCO2 POC ABG pO2 ABG pO2 ABG HCO3 ABG Base Excess ABG Hemoglobin ABG Oxyhemoglobin ABG Potassium ABG Chloride ABG Glucose Carboxyhemoglobin Sodium Potassium Chloride Carbon Dioxide BUN Creatinine Glucose POC Glucose 121 H Lactic Acid Calcium Phosphorus Magnesium Total Bilirubin AST ALT Lactate Dehydrogenase Total Protein Albumin Arterial Blood Glucose Arterial Blood Ionized Calcium Urine WBC (Auto) 23.0 H Urine Creatinine Crossmatch 06/10/21 06/10/21 06/11/21 11:47 23:46 03:52 WBC RBC Hgb Hct MCV MCH MCHC RDW Plt Count Lymph % (Auto) [place] % (Auto) Lymph # (Auto) [place] # (Auto) Seg Neutrophils % Seg Neuts % (Manual) Lymphocytes % (Manual) Seg Neutrophils # Seg Neutrophils # Man Lymphocytes # (Manual) PT INR APTT Fibrinogen ABG pH POC ABG pCO2 POC ABG pO2 ABG pO2 148.9 H ABG HCO3 13.0 L ABG Base Excess -10.1 L ABG Hemoglobin 9.1 L ABG Oxyhemoglobin ABG Potassium ABG Chloride ABG Glucose Carboxyhemoglobin Sodium Potassium Chloride Carbon Dioxide BUN Creatinine Glucose POC Glucose Lactic Acid 4.40 H* 3.30 H* Calcium Phosphorus Magnesium Total Bilirubin AST ALT Lactate Dehydrogenase Total Protein Albumin Arterial Blood Glucose Arterial Blood Ionized Calcium Urine WBC (Auto) Urine Creatinine Crossmatch 06/11/21 06/11/21 06/11/21 05:05 10:38 10:38 WBC 12.6 H RBC 3.38 L Hgb 8.5 L Hct 26.3 L MCV 78 L MCH 25 L MCHC RDW 20.6 H Plt Count 97 L Lymph % (Auto) [place] % (Auto) Lymph # (Auto) [place] # (Auto) Seg Neutrophils % Seg Neuts % (Manual) Lymphocytes % (Manual) Seg Neutrophils # Seg Neutrophils # Man Lymphocytes # (Manual) PT 23.1 H INR 1.98 H APTT Fibrinogen ABG pH POC ABG pCO2 POC ABG pO2 ABG pO2 ABG HCO3 ABG Base Excess ABG Hemoglobin ABG Oxyhemoglobin ABG Potassium ABG Chloride ABG Glucose Carboxyhemoglobin Sodium Potassium Chloride Carbon Dioxide BUN Creatinine Glucose POC Glucose Lactic Acid 2.40 H* Calcium Phosphorus Magnesium Total Bilirubin AST ALT Lactate Dehydrogenase Total Protein Albumin Arterial Blood Glucose Arterial Blood Ionized Calcium Urine WBC (Auto) Urine Creatinine Crossmatch 06/11/21 06/11/21 06/11/21 10:38 10:38 12:15 WBC RBC Hgb Hct MCV MCH MCHC RDW Plt Count Lymph % (Auto) [place] % (Auto) Lymph # (Auto) [place] # (Auto) Seg Neutrophils % Seg Neuts % (Manual) Lymphocytes % (Manual) Seg Neutrophils # Seg Neutrophils # Man Lymphocytes # (Manual) PT INR APTT Fibrinogen ABG pH POC ABG pCO2 POC ABG pO2 ABG pO2 ABG HCO3 ABG Base Excess ABG Hemoglobin ABG Oxyhemoglobin ABG Potassium ABG Chloride ABG Glucose Carboxyhemoglobin Sodium 147 H Potassium Chloride 118.1 H Carbon Dioxide 11 L BUN 53 H Creatinine 3.2 H D Glucose 104 H POC Glucose Lactic Acid 2.30 H* Calcium 5.9 L* D 5.9 L* Phosphorus 7.10 H Magnesium 1.60 L Total Bilirubin 4.20 H AST 2252 H ALT 540 H Lactate Dehydrogenase Total Protein 4.4 L Albumin 2.2 L Arterial Blood Glucose Arterial Blood Ionized Calcium Urine WBC (Auto) Urine Creatinine Crossmatch 06/11/21 06/11/21 06/12/21 14:48 17:45 04:03 WBC 14.7 H RBC Hgb 8.9 L 9.4 L 9.2 L Hct 29.6 L 28.6 L 28.0 L MCV 77 L MCH 25 L MCHC RDW 21.2 H Plt Count 112 L Lymph % (Auto) 5.4 L [place] % (Auto) 8.6 H Lymph # (Auto) 0.8 L [place] # (Auto) 1.3 H Seg Neutrophils % 85.8 H Seg Neuts % (Manual) Lymphocytes % (Manual) Seg Neutrophils # 12.6 H Seg Neutrophils # Man Lymphocytes # (Manual) PT INR APTT Fibrinogen ABG pH POC ABG pCO2 POC ABG pO2 ABG pO2 ABG HCO3 ABG Base Excess ABG Hemoglobin ABG Oxyhemoglobin ABG Potassium ABG Chloride ABG Glucose Carboxyhemoglobin Sodium Potassium Chloride Carbon Dioxide BUN Creatinine Glucose POC Glucose Lactic Acid Calcium Phosphorus Magnesium Total Bilirubin AST ALT Lactate Dehydrogenase Total Protein Albumin Arterial Blood Glucose Arterial Blood Ionized Calcium Urine WBC (Auto) Urine Creatinine Crossmatch 06/12/21 06/12/21 06/12/21 04:03 04:03 04:50 WBC RBC Hgb Hct MCV MCH MCHC RDW Plt Count Lymph % (Auto) [place] % (Auto) Lymph # (Auto) [place] # (Auto) Seg Neutrophils % Seg Neuts % (Manual) Lymphocytes % (Manual) Seg Neutrophils # Seg Neutrophils # Man Lymphocytes # (Manual) PT 24.1 H INR 2.10 H APTT Fibrinogen ABG pH POC ABG pCO2 POC ABG pO2 ABG pO2 127.8 H ABG HCO3 13.2 L ABG Base Excess -11.0 L ABG Hemoglobin 8.6 L ABG Oxyhemoglobin ABG Potassium ABG Chloride ABG Glucose Carboxyhemoglobin Sodium 148 H Potassium Chloride 117.8 H Carbon Dioxide 17 L BUN 72 H Creatinine 4.6 H Glucose POC Glucose Lactic Acid Calcium 6.1 L Phosphorus 6.70 H Magnesium Total Bilirubin 3.40 H AST 1494 H ALT 512 H Lactate Dehydrogenase Total Protein 4.4 L Albumin 2.2 L Arterial Blood Glucose Arterial Blood Ionized Calcium Urine WBC (Auto) Urine Creatinine Crossmatch 06/13/21 06/13/21 06/13/21 00:16 04:00 08:11 WBC RBC 3.51 L Hgb 8.9 L Hct 26.2 L MCV 75 L MCH 25 L MCHC RDW 21.3 H Plt Count 96 L Lymph % (Auto) [place] % (Auto) Lymph # (Auto) [place] # (Auto) Seg Neutrophils % Seg Neuts % (Manual) Lymphocytes % (Manual) Seg Neutrophils # Seg Neutrophils # Man Lymphocytes # (Manual) PT INR APTT Fibrinogen ABG pH POC ABG pCO2 22.8 L POC ABG pO2 115.7 H ABG pO2 ABG HCO3 ABG Base Excess ABG Hemoglobin 7.2 L ABG Oxyhemoglobin ABG Potassium ABG Chloride 119.0 H ABG Glucose 102 H Carboxyhemoglobin Sodium Potassium Chloride Carbon Dioxide BUN Creatinine Glucose POC Glucose Lactic Acid Calcium Phosphorus Magnesium Total Bilirubin AST ALT Lactate Dehydrogenase Total Protein Albumin Arterial Blood Glucose 102 H Arterial Blood Ionized Calcium Urine WBC (Auto) Urine Creatinine 28.0 H Crossmatch 06/13/21 06/13/21 06/13/21 08:11 12:54 14:17 WBC RBC Hgb Hct MCV MCH MCHC RDW Plt Count Lymph % (Auto) [place] % (Auto) Lymph # (Auto) [place] # (Auto) Seg Neutrophils % Seg Neuts % (Manual) Lymphocytes % (Manual) Seg Neutrophils # Seg Neutrophils # Man Lymphocytes # (Manual) PT 18.2 H INR 1.44 H APTT Fibrinogen ABG pH POC ABG pCO2 POC ABG pO2 ABG pO2 ABG HCO3 ABG Base Excess ABG Hemoglobin ABG Oxyhemoglobin ABG Potassium ABG Chloride ABG Glucose Carboxyhemoglobin Sodium 147 H Potassium Chloride 117.2 H Carbon Dioxide 15 L BUN 96 H Creatinine 6.1 H Glucose 107 H POC Glucose 107 H Lactic Acid Calcium 6.2 L Phosphorus Magnesium Total Bilirubin AST ALT Lactate Dehydrogenase Total Protein Albumin Arterial Blood Glucose Arterial Blood Ionized Calcium Urine WBC (Auto) Urine Creatinine Crossmatch 06/14/21 06/14/21 06/14/21 04:35 08:45 08:45 WBC RBC Hgb 9.3 L Hct 27.6 L MCV 75 L MCH 25 L MCHC RDW 21.9 H Plt Count 137 L Lymph % (Auto) [place] % (Auto) Lymph # (Auto) [place] # (Auto) Seg Neutrophils % Seg Neuts % (Manual) Lymphocytes % (Manual) Seg Neutrophils # Seg Neutrophils # Man Lymphocytes # (Manual) PT 16.8 H INR 1.30 H APTT Fibrinogen ABG pH 7.507 H POC ABG pCO2 15.9 L POC ABG pO2 121.2 H ABG pO2 ABG HCO3 ABG Base Excess ABG Hemoglobin 6.3 L ABG Oxyhemoglobin ABG Potassium ABG Chloride 119.0 H ABG Glucose Carboxyhemoglobin Sodium Potassium Chloride Carbon Dioxide BUN Creatinine Glucose POC Glucose Lactic Acid Calcium Phosphorus Magnesium Total Bilirubin AST ALT Lactate Dehydrogenase Total Protein Albumin Arterial Blood Glucose Arterial Blood Ionized Calcium 3.5 L Urine WBC (Auto) Urine Creatinine Crossmatch 06/14/21 08:45 WBC RBC Hgb Hct MCV MCH MCHC RDW Plt Count Lymph % (Auto) [place] % (Auto) Lymph # (Auto) [place] # (Auto) Seg Neutrophils % Seg Neuts % (Manual) Lymphocytes % (Manual) Seg Neutrophils # Seg Neutrophils # Man Lymphocytes # (Manual) PT INR APTT Fibrinogen ABG pH POC ABG pCO2 POC ABG pO2 ABG pO2 ABG HCO3 ABG Base Excess ABG Hemoglobin ABG Oxyhemoglobin ABG Potassium ABG Chloride ABG Glucose Carboxyhemoglobin Sodium 147 H Potassium Chloride 115.5 H Carbon Dioxide 15 L BUN 107 H Creatinine 6.8 H Glucose POC Glucose Lactic Acid Calcium 6.7 L Phosphorus Magnesium Total Bilirubin 5.00 H AST 578 H ALT 298 H Lactate Dehydrogenase Total Protein 5.6 L D Albumin 2.3 L Arterial Blood Glucose Arterial Blood Ionized Calcium Urine WBC (Auto) Urine Creatinine Crossmatch Allied health notes reviewed: nursing
--- NOTE | 2021-06-14 13:12 | Progress Note ---
Assessment and Plan Assessment and plan: This is a 60-year-old female with no known past medical history who came in s/p cardiac arrest at home. Upon arrival to [facility], patient was found to have a hemoglobin of 3.0 possibly due to GIB, with acute metabolic encephalophy, acute respiratory failure, and PEG. Hospital Course to Date: 06/14/21- Patient remains intubated, off sedation. Open eyes spontaneously with +gag and cough, but does not follow any commands. Tachypnea and tachycardia noted upon assess, low dose PRN fentanyl ordered for CPOT greater than 3. Plan for possible HD, VAs Cath placed by [facility]. D/w GI, okay to start trickle feed and transition to IV protonix BID tomorrow. #Neuro: Acute encephalopathy - Hypoxic versus metabolic - 06/12 CT head showed ill-defined differentiation of joseph and white matter which could reflect global hypoxic ischemic injury - MRI and EEG pending - PRN Fentanyl added for CPOT goal greater than 3 - Neurology consulted, recs appreciated - Poor prognosis, family updated about findings #CV: S/p PEA arrest - ROSC achieved, s/p slow rewarming per protocol - SR to ST on the monitor - Normotensive, off pressors - Continue to monitor hydrodynamics #Resp: Acute hypoxic respiratory failure - Intubated on 06/09 - Vent setting: PRVC- 30%, 6, 14, 400 - AM ABG noted, d/w [facility] - PRN Fentanyl for Tachynea/CPOT greater than 3 - Continue daily ABGs - SBT per [facility] - Plan for extubation as mental status will allow #Transaminitis-likely secondary to shock versus alcohol abuse (unclear patient history) #Acute upper GI bleed -resolved #Acute blood loss anemia-resolved #Hemorrhagic shock requiring pressors -resolved - S/p 5 units of blood products - Endoscopy 06/10/21: Clipping of presumed location of bleed by GI - H&H stable, 9.3/27.6 today, will transfuse for hemoglobin less than 7 - s/p Rocephin, vancomycin and pressors - AST, ALT, T bili downtrending - continue Protonix drip - Per GI plan to transition to IV push protonix BID tomorrow - Okay to start trickle feed per GI - continue to trend H&H, am labs ordered #Acute kidney injury - Unknown baseline, creatinine is 6.8 - 06/12 Renal ultrasound negative - Oliguric today, only 75cc in over 8hrs - Nephrology following, recs appreciated - Plan for possible HD, VasCath placed by [facility] #Coagulopathy - will continue to trend INR - We will give vitamin K as needed #Endo: Hyperglycemia- resolved - Originally presented with hypoglycemia of 20 and required D50 x2 resulting in hyperglycemia - Continue BG check Q6hrs, if hyperglycemic consider SSI The high probability of a clinically significant, sudden or life threatening deterioration of the [neuro, pulmo, GI] system(s) required my full and direct attention, intervention and personal management. The aggregate critical care time was [60] minutes. This time is in addition to time spent performing reported procedures but includes the following: [x] Data Review and interpretation [x] Patient assessment and monitoring of vital signs [x] Documentation [x] Medication orders and management I saw and evaluated the patient. Discussed with the nurse practitioner and agree with their findings and plan as documented in this note. Disposition Plan: ICU Total Time Spent with Patient (Minutes): 60 Hospitalist Physical - Constitutional Vitals: Temp Pulse Resp BP Pulse Ox 95.9 F L 113 H 45 H 140/96 99 06/13/21 18:48 06/14/21 12:29 06/14/21 11:10 06/14/21 12:29 06/14/21 12:29 General appearance: Present: no acute distress (Currently sedated) HEART Score - HEART Score EKG: Normal Age: 45-65 Troponin: Troponin T < 0.010 ng/mL (0.00-0.029) 06/09/21 03:27 - Critical Actions Critical Actions: 4-6 pts:12-16.6% risk of adverse cardiac event. Should be ad mitted Results - Labs CBC & Chem 7: 06/14/21 08:45 06/14/21 08:45 Labs: Laboratory Last Values WBC 11.0 K/mm3 (4.5-11.0) 06/14/21 08:45 RBC 3.68 M/mm3 (3.65-5.03) 06/14/21 08:45 Hgb 9.3 gm/dl (10.1-14.3) L 06/14/21 08:45 Hct 27.6 % (30.3-42.9) L 06/14/21 08:45 MCV 75 fl (79-97) L 06/14/21 08:45 MCH 25 pg (28-32) L 06/14/21 08:45 MCHC 34 % (30-34) 06/14/21 08:45 RDW 21.9 % (13.2-15.2) H 06/14/21 08:45 Plt Count 137 K/mm3 (140-440) L 06/14/21 08:45 Lymph % (Auto) 5.4 % (13.4-35.0) L 06/12/21 04:03 [place] % (Auto) 8.6 % (0.0-7.3) H 06/12/21 04:03 Eos % (Auto) 0.1 % (0.0-4.3) 06/12/21 04:03 Baso % (Auto) 0.1 % (0.0-1.8) 06/12/21 04:03 Lymph # (Auto) 0.8 K/mm3 (1.2-5.4) L 06/12/21 04:03 [place] # (Auto) 1.3 K/mm3 (0.0-0.8) H 06/12/21 04:03 Eos # (Auto) 0.0 K/mm3 (0.0-0.4) 06/12/21 04:03 Baso # (Auto) 0.0 K/mm3 (0.0-0.1) 06/12/21 04:03 Add Manual Diff Complete 06/09/21 12:27 Total Counted 100 06/09/21 12:27 Seg Neutrophils % 85.8 % (40.0-70.0) H 06/12/21 04:03 Seg Neuts % (Manual) 87.0 % (40.0-70.0) H 06/09/21 12:27 Band Neutrophils % 4.0 % 06/09/21 12:27 Lymphocytes % (Manual) 5.0 % (13.4-35.0) L 06/09/21 12:27 Monocytes % (Manual) 4.0 % (0.0-7.3) 06/09/21 12:27 Nucleated RBC % Not Reportable 06/09/21 12:27 Seg Neutrophils # 12.6 K/mm3 (1.8-7.7) H 06/12/21 04:03 Seg Neutrophils # Man 12.4 K/mm3 (1.8-7.7) H 06/09/21 12:27 Band Neutrophils # 0.6 K/mm3 06/09/21 12:27 Lymphocytes # (Manual) 0.7 K/mm3 (1.2-5.4) L 06/09/21 12:27 Abs React Lymphs (Man) 0.0 K/mm3 06/09/21 12:27 Monocytes # (Manual) 0.6 K/mm3 (0.0-0.8) 06/09/21 12:27 Eosinophils # (Manual) 0.0 K/mm3 (0.0-0.4) 06/09/21 12:27 Basophils # (Manual) 0.0 K/mm3 (0.0-0.1) 06/09/21 12:27 Metamyelocytes # 0.0 K/mm3 06/09/21 12:27 Myelocytes # 0.0 K/mm3 06/09/21 12:27 Promyelocytes # 0.0 K/mm3 06/09/21 12:27 Blast Cells # 0.0 K/mm3 06/09/21 12:27 WBC Morphology Not Reportable 06/09/21 12:27 WBC Morphology TNR 06/09/21 12:27 Hypersegmented Neuts Not Reportable 06/09/21 12:27 Hyposegmented Neuts Not Reportable 06/09/21 12:27 Hypogranular Neuts Not Reportable 06/09/21 12:27 Smudge Cells Not Reportable 06/09/21 12:27 Toxic Granulation Not Reportable 06/09/21 12:27 Toxic Vacuolation Not Reportable 06/09/21 12:27 Dohle Bodies Not Reportable 06/09/21 12:27 Pelger-Huet Anomaly Not Reportable 06/09/21 12:27 Gui Rods Not Reportable 06/09/21 12:27 Platelet Estimate Not Reportable 06/09/21 12:27 Clumped Platelets Not Reportable 06/09/21 12:27 Plt Clumps, EDTA Not Reportable 06/09/21 12:27 Large Platelets Not Reportable 06/09/21 12:27 Giant Platelets Not Reportable 06/09/21 12:27 Platelet Satelliting Not Reportable 06/09/21 12:27 Plt Morphology Comment Not Reportable 06/09/21 12:27 RBC Morphology Not Reportable 06/09/21 12:27 Dimorphic RBCs Not Reportable 06/09/21 12:27 Polychromasia Not Reportable 06/09/21 12:27 Hypochromasia 2+ 06/09/21 12:27 Poikilocytosis 1+ 06/09/21 12:27 Anisocytosis 2+ 06/09/21 12:27 Microcytosis Not Reportable 06/09/21 12:27 Macrocytosis Not Reportable 06/09/21 12:27 Spherocytes Not Reportable 06/09/21 12:27 Pappenheimer Bodies Not Reportable 06/09/21 12:27 Sickle Cells Not Reportable 06/09/21 12:27 Target Cells Not Reportable 06/09/21 12:27 Tear Drop Cells Not Reportable 06/09/21 12:27 Ovalocytes Not Reportable 06/09/21 12:27 Helmet Cells Not Reportable 06/09/21 12:27 [place] Bodies Not Reportable 06/09/21 12:27 [place] Rings Not Reportable 06/09/21 12:27 [place] Cells 1+ 06/09/21 12:27 Bite Cells Not Reportable 06/09/21 12:27 Crenated Cell Not Reportable 06/09/21 12:27 Elliptocytes Few 06/09/21 12:27 Acanthocytes (Spur) Not Reportable 06/09/21 12:27 Rouleaux Not Reportable 06/09/21 12:27 Hemoglobin C Crystals Not Reportable 06/09/21 12:27 Schistocytes Not Reportable 06/09/21 12:27 Malaria parasites Not Reportable 06/09/21 12:27 Narendra Bodies Not Reportable 06/09/21 12:27 Hem Pathologist Commnt No 06/09/21 12:27 PT 16.8 Sec. (12.2-14.9) H 06/14/21 08:45 INR 1.30 (0.87-1.13) H 06/14/21 08:45 APTT 52.6 Sec. (24.2-36.6) H 06/09/21 12:27 Fibrinogen 83 mg/dl (211-480) L* 06/09/21 12:27 ABG pH 7.507 (7.320-7.450) H 06/14/21 04:35 POC ABG pCO2 15.9 mmHg (32.0-48.0) L 06/14/21 04:35 ABG pCO2 24.1 mm Hg 06/12/21 04:50 POC ABG pO2 121.2 mmHg (83-108) H 06/14/21 04:35 ABG pO2 127.8 mm Hg (80.0-90.0) H 06/12/21 04:50 POC ABG HCO3 12.3 06/14/21 04:35 ABG HCO3 13.2 mmol/L (20.0-26.0) L 06/12/21 04:50 ABG O2 Saturation 99.1 (0-100) 06/14/21 04:35 ABG O2 Content 12.0 (0.0-44) 06/12/21 04:50 POC ABG Base Excess -9.8 06/14/21 04:35 ABG Base Excess -11.0 mmol/L (-2.0-3.0) L 06/12/21 04:50 ABG Hemoglobin 6.3 (12.0-17.5) L 06/14/21 04:35 ABG Oxyhemoglobin 97.3 (94-98) 06/14/21 04:35 ABG Carboxyhemoglobin 1.4 % (0.0-5.0) 06/12/21 04:50 ABG Methemoglobin 0.3 (0.0-1.5) 06/14/21 04:35 ABG Sodium 142.5 mmol/L (136.0-145.0) 06/14/21 04:35 ABG Potassium 3.6 mmol/L (3.40-4.50) 06/14/21 04:35 ABG Chloride 119.0 mmol/L (98-107) H 06/14/21 04:35 ABG Glucose 93 mg/dL (65-95) 06/14/21 04:35 Oxyhemoglobin 96.6 % (95.0-99.0) 06/12/21 04:50 Carboxyhemoglobin 1.5 (0.5-1.5) 06/14/21 04:35 FiO2 30 % 06/12/21 04:50 FiO2 % 30.0 06/14/21 04:35 Sodium 147 mmol/L (137-145) H 06/14/21 08:45 Potassium 3.8 mmol/L (3.6-5.0) 06/14/21 08:45 Chloride 115.5 mmol/L (98-107) H 06/14/21 08:45 Carbon Dioxide 15 mmol/L (22-30) L 06/14/21 08:45 Anion Gap 20 mmol/L 06/14/21 08:45 BUN 107 mg/dL (7-17) H 06/14/21 08:45 Creatinine 6.8 mg/dL (0.6-1.2) H 06/14/21 08:45 Estimated GFR 8 ml/min 06/14/21 08:45 BUN/Creatinine Ratio 16 % 06/14/21 08:45 Glucose 90 mg/dL (65-100) 06/14/21 08:45 POC Glucose 81 mg/dL (70-105) 06/14/21 11:20 Lactic Acid 1.70 mmol/L (0.7-2.0) 06/11/21 12:12 Calcium 6.7 mg/dL (8.4-10.2) L 06/14/21 08:45 Phosphorus 6.70 mg/dL (2.5-4.5) H 06/12/21 04:03 Magnesium 1.70 mg/dL (1.7-2.3) 06/12/21 04:03 Total Bilirubin 5.00 mg/dL (0.1-1.2) H 06/14/21 08:45 AST 578 units/L (5-40) H 06/14/21 08:45 ALT 298 units/L (7-56) H 06/14/21 08:45 Alkaline Phosphatase 121 units/L (35-129) 06/14/21 08:45 Ammonia 32.0 umol/L (25-60) 06/11/21 14:48 Lactate Dehydrogenase 2208 units/L (91-180) H 06/09/21 11:44 Troponin T < 0.010 ng/mL (0.00-0.029) 06/09/21 03:27 Total Protein 5.6 g/dL (6.3-8.2) L D 06/14/21 08:45 Albumin 2.3 g/dL (3.9-5) L 06/14/21 08:45 Albumin/Globulin Ratio 0.7 % 06/14/21 08:45 TSH 0.315 mlU/mL (0.270-4.200) 06/11/21 14:48 Arterial Blood Glucose 93 mg/dL (65-95) 06/14/21 04:35 Arterial Blood Ionized Calcium 3.5 mg/dL (4.6-5.3) L 06/14/21 04:35 Urine Color Yellow (Yellow) 06/10/21 08:47 Urine Turbidity Cloudy (Clear) 06/10/21 08:47 Urine pH 5.0 (5.0-7.0) 06/10/21 08:47 Ur Specific [place] 1.016 (1.003-1.030) 06/10/21 08:47 Urine Protein 100 mg/dl mg/dL (Negative) 06/10/21 08:47 Urine Glucose (UA) 150 mg/dL (Negative) 06/10/21 08:47 Urine Ketones Neg mg/dL (Negative) 06/10/21 08:47 Urine Blood Lg (Negative) 06/10/21 08:47 Urine Nitrite Neg (Negative) 06/10/21 08:47 Urine Bilirubin Neg (Negative) 06/10/21 08:47 Urine Urobilinogen < 2.0 mg/dL (<2.0) 06/10/21 08:47 Ur Leukocyte Esterase Tr (Negative) 06/10/21 08:47 Urine WBC (Auto) 23.0 /HPF (0.0-6.0) H 06/10/21 08:47 Urine RBC (Auto) 67.0 /HPF (0.0-6.0) 06/10/21 08:47 U Epithel Cells (Auto) 5.0 /HPF (0-13.0) 06/10/21 08:47 Urine Bacteria (Auto) 1+ /HPF (Negative) 06/10/21 08:47 Ur Transition Epith Cell 2 /HPF 06/10/21 08:47 Hyaline Casts 1 /LPF 06/10/21 08:47 Urine Mucus Few /HPF 06/10/21 08:47 Urine Creatinine 28.0 mg/dL (0.1-20.0) H 06/13/21 00:16 Urine Sodium 109 mmol/L 06/13/21 00:16 Urine Opiates Screen Negative 06/14/21 10:00 Urine Methadone Screen Negative 06/14/21 10:00 Ur Barbiturates Screen Negative 06/14/21 10:00 Ur Phencyclidine Scrn Negative 06/14/21 10:00 Ur Amphetamines Screen Negative 06/14/21 10:00 U Benzodiazepines Scrn Positive 06/14/21 10:00 Urine Cocaine Screen Negative 06/14/21 10:00 U Marijuana (THC) Screen Positive 06/14/21 10:00 Drugs of Abuse Note Disclamer 06/14/21 10:00 Coronavirus (PCR) Negative (Negative) 06/09/21 13:12 Blood Type B POSITIVE 06/09/21 04:00 Antibody Screen Negative 06/09/21 04:00 Crossmatch See Detail 06/09/21 04:00 Microbiology: Microbiology 06/09/21 03:59 Peripheral/Venous Blood Culture - Final NO GROWTH AFTER 5 DAYS 06/12/21 08:59 Peripheral/Venous Blood Culture - Preliminary NO GROWTH AFTER 48 HOURS 06/12/21 08:59 Peripheral/Venous Blood Culture - Preliminary NO GROWTH AFTER 48 HOURS Esparza/IV: Voiding Method Indwelling Catheter Active Medications - Current Medications Current Medications: Generic Name Dose Route Start Last Admin Trade Name Freq PRN Reason Stop Dose Admin Dextrose 50 ml 06/09/21 11:13 Dextrose 50% In Water (25gm) 50 Ml Syringe IV Q30MIN PRN Hypoglycemia Protocol Hydrophilic Ointment 1 applic 06/09/21 03:26 06/12/21 20:00 Lip Therapy Vaseline TP 1 applic Q2HR PRN Administration Dry Lips Pantoprazole Sodium 80 mg/ 100 mls @ 10 mls/hr 06/09/21 12:00 06/13/21 22:27 Sodium Chloride IV 8 mg/hr DIRECT GABINO 10 mls/hr Administration 8 MG/HR Multi-Ingred Cream/Lotion/Oil/Oint 1 applic 06/09/21 03:26 06/12/21 20:05 Mineral Oil/Petrolatum, White Ophth Oint 3.5 Gm OU 1 applic Q4HR PRN Administration Dry Eye(s) Sodium Chloride 10 ml 06/09/21 22:00 06/13/21 21:30 Sodium Chloride 0.9% 10 Ml Flush Syringe IV 10 ml BID GABINO Administration Sodium Chloride 10 ml 06/09/21 11:13 Sodium Chloride 0.9% 10 Ml Flush Syringe IV PRN PRN LINE FLUSH Nutrition/Malnutrition Assess - Dietary Evaluation Nutrition/Malnutrition Findings: Nutrition Notes Start: 06/11/21 15:21 Freq: Status: Active Protocol: Document 06/13/21 10:09 GB (Rec: 06/13/21 10:14 GB [id number]) Nutrition Notes Initial or Follow up Reassessment Other Pertinent Diagnosis GI bleed, intubated Current Diet NPO Labs/Tests 06/13: Na 147, BUN 96, creatinine 6.1, glucose 107, Ca 6.2 Pertinent Medications reviewed Height 5 ft 3 in Weight 57.107 kg [place] Body Weight (kg) 52.27 BMI 22.3 Weight change and time frame no changes recorded Weight Status Appropriate Subjective/Other Information intubation continues, currently sedated, GI bleed, NPO x 4days Percent of energy/protein needs met: currently 0% with NPO Burn Absent Trauma Absent GI Symptoms Other Food Allergy No Current % PO Negligible Minimum of two criteria No #1 Nutrition Diagnosis Inadequate energy intake Comments: 06/13: Intubation continues, NPOx4 days Etiology Intubated, GI Bleed As Evidenced by Signs and Symptoms NPO, intubation Diagnosis Progress(for reassessment Continues documentation) Is patient on ventilator? Yes Is Patient Ambulatory and/or Out of Bed No REE-([facility]-confined to bed) 1343.208 Kcal/Kg value to use for calculation 25 Approximate Energy Requirements Using 1428 kcal/Kg Calculation Used for Recommendations Kcal/kg Additional Notes Protein 1-1.2 g/kg @ 57k- 68g Fluids: 1 ml/kcal or per MD Nutrition Intervention Change Diet Order: Continue NPO, if extubated begin Clear liquids (no red colored clears) Nutrition Support: Recommend TPN for 3-5 days to allow GI Bleed healing (need central line) 06/13: no change to recommendation Goal #1 Extubate and advance diet to clear liquids Goal #2 If intubation continues, begin TPN post central line placement Follow-Up By: 06/15/21 Additional Comments f/u: TPN started or extubated and diet advanced clear liquids
--- NOTE | 2021-06-14 13:15 | Gastroenterology Progress Note ---
Assessment and Plan upper gi bleed - stable H/H for several days; okay to start trial of tube feedings. transition to PPI BID dosing. abnormal liver enzymes - improving, suspect shock liver, unclear if there is underlying chronic liver disease; monitor/trend levels. Subjective Date of service: 06/14/21 Principal diagnosis: UGI bleed Interval history: no new gi changes/events overnight. Objective - Exam Narrative Exam: gen: intubated/unresponsive abd: soft, nd - Constitutional Vitals: Temp Pulse Resp BP Pulse Ox 95.9 F L 113 H 45 H 140/96 99 06/13/21 18:48 06/14/21 12:29 06/14/21 11:10 06/14/21 12:29 06/14/21 12:29 - Labs CBC & Chem 7: 06/14/21 08:45 06/14/21 08:45 Labs: Laboratory Results - last 24 hr 06/13/21 06/13/21 06/14/21 14:17 23:48 04:35 WBC RBC Hgb Hct MCV MCH MCHC RDW Plt Count PT 18.2 H INR 1.44 H ABG pH 7.507 H POC ABG pCO2 15.9 L POC ABG pO2 121.2 H POC ABG HCO3 12.3 ABG O2 Saturation 99.1 POC ABG Base Excess -9.8 ABG Hemoglobin 6.3 L ABG Oxyhemoglobin 97.3 ABG Methemoglobin 0.3 ABG Sodium 142.5 ABG Potassium 3.6 ABG Chloride 119.0 H ABG Glucose 93 Carboxyhemoglobin 1.5 FiO2 % 30.0 Sodium Potassium Chloride Carbon Dioxide Anion Gap BUN Creatinine Estimated GFR BUN/Creatinine Ratio Glucose POC Glucose 100 Calcium Total Bilirubin AST ALT Alkaline Phosphatase Total Protein Albumin Albumin/Globulin Ratio Arterial Blood Glucose 93 Arterial Blood Ionized Calcium 3.5 L Urine Opiates Screen Urine Methadone Screen Ur Barbiturates Screen Ur Phencyclidine Scrn Ur Amphetamines Screen U Benzodiazepines Scrn Urine Cocaine Screen U Marijuana (THC) Screen Drugs of Abuse Note 06/14/21 06/14/21 06/14/21 05:32 08:45 08:45 WBC 11.0 RBC 3.68 Hgb 9.3 L Hct 27.6 L MCV 75 L MCH 25 L MCHC 34 RDW 21.9 H Plt Count 137 L PT 16.8 H INR 1.30 H ABG pH POC ABG pCO2 POC ABG pO2 POC ABG HCO3 ABG O2 Saturation POC ABG Base Excess ABG Hemoglobin ABG Oxyhemoglobin ABG Methemoglobin ABG Sodium ABG Potassium ABG Chloride ABG Glucose Carboxyhemoglobin FiO2 % Sodium Potassium Chloride Carbon Dioxide Anion Gap BUN Creatinine Estimated GFR BUN/Creatinine Ratio Glucose POC Glucose 96 Calcium Total Bilirubin AST ALT Alkaline Phosphatase Total Protein Albumin Albumin/Globulin Ratio Arterial Blood Glucose Arterial Blood Ionized Calcium Urine Opiates Screen Urine Methadone Screen Ur Barbiturates Screen Ur Phencyclidine Scrn Ur Amphetamines Screen U Benzodiazepines Scrn Urine Cocaine Screen U Marijuana (THC) Screen Drugs of Abuse Note 06/14/21 06/14/21 06/14/21 08:45 10:00 11:20 WBC RBC Hgb Hct MCV MCH MCHC RDW Plt Count PT INR ABG pH POC ABG pCO2 POC ABG pO2 POC ABG HCO3 ABG O2 Saturation POC ABG Base Excess ABG Hemoglobin ABG Oxyhemoglobin ABG Methemoglobin ABG Sodium ABG Potassium ABG Chloride ABG Glucose Carboxyhemoglobin FiO2 % Sodium 147 H Potassium 3.8 Chloride 115.5 H Carbon Dioxide 15 L Anion Gap 20 BUN 107 H Creatinine 6.8 H Estimated GFR 8 BUN/Creatinine Ratio 16 Glucose 90 POC Glucose 81 Calcium 6.7 L Total Bilirubin 5.00 H AST 578 H ALT 298 H Alkaline Phosphatase 121 Total Protein 5.6 L D Albumin 2.3 L Albumin/Globulin Ratio 0.7 Arterial Blood Glucose Arterial Blood Ionized Calcium Urine Opiates Screen Negative Urine Methadone Screen Negative Ur Barbiturates Screen Negative Ur Phencyclidine Scrn Negative Ur Amphetamines Screen Negative U Benzodiazepines Scrn Positive Urine Cocaine Screen Negative U Marijuana (THC) Screen Positive Drugs of Abuse Note Disclamer
[2021-06-14] MEDS ORDERED: SIMPLE SYRUP 15 ML FEEDTUBE PRN ×4 (15:12→16:23)
[2021-06-14] MEDS ORDERED: LIPASE 10,500/PROTEASE 25,000/AMYLASE 43,750 (UNITS) DR CAP FEEDTUBE PRN ×2 (15:12→16:23)
[2021-06-14] MEDS ORDERED: SODIUM BICARBONATE 325 MG TAB FEEDTUBE PRN ×2 (15:12→16:23)
--- NOTE | 2021-06-14 18:11 | Progress Note ---
Assessment and Plan - Patient Problems (1) Acute kidney injury Current Visit: Yes Status: Acute Plan to address problem: Worsening acute kidney injury likely secondary to acute tubular necrosis in the setting of cardiac arrest and severely decreased hemoglobin levels in the setting of upper GI bleed. Urinalysis however was also concerning for evidence of microscopic hematuria and proteinuria, indicating a possible underlying glomerulonephritis picture. Given worsening renal function along with anemia and given nephritic type urine analysis will undergo further testing at this time which will include serologic markers including complement levels and ANCA vasculitis levels. Will also add an anti-GBM antibody test at this time. We will monitor closely. Pending results at this time. Please avoid all nephrotoxins and maintain mean arterial pressures above 65 mmHg. Renal ultrasound reviewed without any acute abnormalities noted. Discussed with primary staff and recommend starting on pulse dose steroids. Vascath placed. Will monitor renal function closely, but if renal function continues to show worsening, then we need to consider initiating renal replacement therapy with HD. Will follow up in the [facility], (2) Cardiac arrest Onset Date: ~06/09/21 Current Visit: Yes Status: Acute Plan to address problem: With return of spontaneous circulation. Off pressor support at this time. Will monitor closely. (3) GI bleed Onset Date: ~06/09/21 Current Visit: Yes Status: Acute Qualifiers: GI bleed type/associated pathology: unspecified gastrointestinal hemorrhage type Qualified Code(s): K92.2 - Gastrointestinal hemorrhage, unspecified Plan to address problem: That is post emergent EGD showing large amount of old blood without any evidence of active bleeding sites noted. We will continue to monitor closely. Continues on on Protonix drip. Await further recommendations from gastroenterology. Overall rate of GI bleeding seems to be decreased and hemoglobin/hematocrit levels are stable this morning. (4) Acute respiratory failure Current Visit: Yes Status: Acute Plan to address problem: Ventilator management per pulmonology. Stable on current vent settings. Subjective Date of service: 06/14/21 Principal diagnosis: UGI bleed Interval history: Renal function noted with continued worsening over the last 24-48 hours. Patient has now become progressively more anuric. Had MRI brain done today, pending results. Vascath placed given worsening renal disease. Objective - Vital Signs Vital signs: Vital Signs - 12hr 06/14/21 06/14/21 06/14/21 06:10 06:20 06:30 Temperature Pulse Rate 91 H 105 H 100 H Pulse Rate [ From Monitor] Respiratory 24 26 H 27 H Rate Blood Pressure 97/66 97/66 97/66 O2 Sat by Pulse 100 100 100 Oximetry 06/14/21 06/14/21 06/14/21 06:40 06:50 07:00 Temperature 98.1 F Pulse Rate 102 H 102 H 103 H Pulse Rate [ From Monitor] Respiratory 26 H 25 H 25 H Rate Blood Pressure 97/66 97/66 112/75 O2 Sat by Pulse 100 99 Oximetry 06/14/21 06/14/21 06/14/21 07:10 07:20 07:30 Temperature Pulse Rate 104 H 107 H 112 H Pulse Rate [ From Monitor] Respiratory 26 H 29 H 31 H Rate Blood Pressure 112/75 112/75 112/75 O2 Sat by Pulse 99 98 98 Oximetry 06/14/21 06/14/21 06/14/21 07:40 07:50 08:00 Temperature Pulse Rate 112 H 112 H 115 H Pulse Rate [ From Monitor] Respiratory 30 H 28 H 31 H Rate Blood Pressure 112/75 112/75 127/90 O2 Sat by Pulse 98 98 Oximetry 06/14/21 06/14/21 06/14/21 08:04 08:10 08:20 Temperature Pulse Rate 123 H 122 H 120 H Pulse Rate [ From Monitor] Respiratory 40 H 35 H Rate Blood Pressure 127/90 127/90 112/75 O2 Sat by Pulse 99 98 98 Oximetry 06/14/21 06/14/21 06/14/21 08:30 08:40 08:50 Temperature Pulse Rate 124 H 125 H 124 H Pulse Rate [ 120 H From Monitor] Respiratory 56 H 56 H 46 H Rate Blood Pressure 112/75 112/75 127/90 O2 Sat by Pulse 99 99 99 Oximetry 06/14/21 06/14/21 06/14/21 09:00 09:10 09:20 Temperature Pulse Rate 125 H 123 H 119 H Pulse Rate [ From Monitor] Respiratory 55 H 55 H 27 H Rate Blood Pressure 132/82 132/82 132/82 O2 Sat by Pulse 97 99 99 Oximetry 06/14/21 06/14/21 06/14/21 09:30 09:40 09:50 Temperature Pulse Rate 118 H 119 H 120 H Pulse Rate [ From Monitor] Respiratory 31 H 33 H 35 H Rate Blood Pressure 132/82 132/82 132/82 O2 Sat by Pulse 99 99 100 Oximetry 06/14/21 06/14/21 06/14/21 10:00 10:10 10:20 Temperature Pulse Rate 119 H 121 H 122 H Pulse Rate [ From Monitor] Respiratory 35 H 37 H 36 H Rate Blood Pressure 135/94 135/94 135/94 O2 Sat by Pulse 99 100 100 Oximetry 06/14/21 06/14/21 06/14/21 10:30 10:40 10:50 Temperature Pulse Rate 123 H 123 H 123 H Pulse Rate [ From Monitor] Respiratory 39 H 46 H 47 H Rate Blood Pressure 135/94 135/94 135/94 O2 Sat by Pulse 100 99 99 Oximetry 06/14/21 06/14/21 06/14/21 11:00 11:10 11:20 Temperature Pulse Rate 123 H 124 H 123 H Pulse Rate [ From Monitor] Respiratory 42 H 45 H 42 H Rate Blood Pressure 141/95 141/95 141/95 O2 Sat by Pulse 97 99 99 Oximetry 06/14/21 06/14/21 06/14/21 11:30 11:40 11:50 Temperature Pulse Rate 121 H 124 H 119 H Pulse Rate [ From Monitor] Respiratory 45 H 43 H 39 H Rate Blood Pressure 141/95 141/95 141/95 O2 Sat by Pulse 98 99 98 Oximetry 06/14/21 06/14/21 06/14/21 12:00 12:10 12:20 Temperature 98.2 F Pulse Rate 122 H 116 H 115 H Pulse Rate [ 95 H From Monitor] Respiratory 50 H 33 H 38 H Rate Blood Pressure 140/96 140/96 140/96 O2 Sat by Pulse 100 97 96 Oximetry 06/14/21 06/14/21 06/14/21 12:29 12:30 12:40 Temperature Pulse Rate 113 H 114 H 107 H Pulse Rate [ From Monitor] Respiratory 29 H 28 H Rate Blood Pressure 140/96 140/96 140/96 O2 Sat by Pulse 99 98 98 Oximetry 06/14/21 06/14/21 06/14/21 12:50 13:00 13:10 Temperature Pulse Rate 111 H 107 H 114 H Pulse Rate [ From Monitor] Respiratory 35 H 30 H 29 H Rate Blood Pressure 140/96 115/73 140/96 O2 Sat by Pulse 99 97 99 Oximetry 06/14/21 06/14/21 06/14/21 13:20 14:26 14:30 Temperature Pulse Rate 105 H 97 H 96 H Pulse Rate [ From Monitor] Respiratory 29 H 28 H 27 H Rate Blood Pressure 140/96 124/73 O2 Sat by Pulse 98 99 Oximetry 06/14/21 06/14/21 06/14/21 14:40 14:50 15:00 Temperature Pulse Rate 92 H 89 88 Pulse Rate [ From Monitor] Respiratory 21 23 23 Rate Blood Pressure 124/73 124/73 98/66 O2 Sat by Pulse 100 100 99 Oximetry 06/14/21 06/14/21 06/14/21 15:10 15:20 15:30 Temperature Pulse Rate 84 82 82 Pulse Rate [ From Monitor] Respiratory 22 22 24 Rate Blood Pressure 124/73 124/73 124/73 O2 Sat by Pulse 100 100 100 Oximetry 06/14/21 06/14/21 06/14/21 15:40 15:50 16:00 Temperature Pulse Rate 91 H 86 81 Pulse Rate [ From Monitor] Respiratory 25 H 23 22 Rate Blood Pressure 124/73 124/73 127/76 O2 Sat by Pulse 100 100 100 Oximetry 06/14/21 06/14/21 06/14/21 16:10 16:12 16:15 Temperature 97.5 F L Pulse Rate 82 Pulse Rate [ 95 H From Monitor] Respiratory 22 Rate Blood Pressure 127/76 O2 Sat by Pulse 100 100 Oximetry 06/14/21 06/14/21 06/14/21 16:20 16:30 16:32 Temperature Pulse Rate 80 86 88 Pulse Rate [ From Monitor] Respiratory 22 24 Rate Blood Pressure 127/76 127/76 127/76 O2 Sat by Pulse 100 100 100 Oximetry 06/14/21 06/14/21 06/14/21 16:40 16:50 17:00 Temperature Pulse Rate 82 79 79 Pulse Rate [ From Monitor] Respiratory 24 23 24 Rate Blood Pressure 127/76 127/76 135/76 O2 Sat by Pulse 100 100 100 Oximetry 06/14/21 06/14/21 17:10 17:20 Temperature Pulse Rate 79 80 Pulse Rate [ From Monitor] Respiratory 20 20 Rate Blood Pressure 135/76 135/76 O2 Sat by Pulse 100 100 Oximetry - General Appearance General appearance: chronically ill, intubated, frail EENT: ATNC Neck: no JVD Respiratory: Present: Decreased Breath Sounds Cardiology: regular Integumentary: no rash Musculoskeletal: deferred - Lab 06/14/21 08:45 06/14/21 08:45 Most recent lab results ABG pH 7.507 (7.320-7.450) H 06/14/21 04:35 ABG pCO2 24.1 mm Hg 06/12/21 04:50 ABG pO2 127.8 mm Hg (80.0-90.0) H 06/12/21 04:50 ABG HCO3 13.2 mmol/L (20.0-26.0) L 06/12/21 04:50 ABG O2 Saturation 99.1 (0-100) 06/14/21 04:35 Calcium 6.7 mg/dL (8.4-10.2) L 06/14/21 08:45 Phosphorus 6.70 mg/dL (2.5-4.5) H 06/12/21 04:03 Magnesium 1.70 mg/dL (1.7-2.3) 06/12/21 04:03 Urine Creatinine 28.0 mg/dL (0.1-20.0) H 06/13/21 00:16 Urine Sodium 109 mmol/L 06/13/21 00:16 - Imaging Chest x-ray: pending Medications & Allergies - Medications Allergies/Adverse Reactions: Allergies No Known Allergies Allergy (Verified 05/22/16 22:45) Home Medications: Home Medications Medication Instructions Recorded Confirmed Last Taken Type No Known Home Medications [No 06/09/21 06/09/21 Unknown History Reported Home Medications] Active Medications: Generic Name Dose Route Start Last Admin Trade Name Freq PRN Reason Stop Dose Admin Lipase/Protease/Amylase 1 each 06/14/21 16:23 Lipase 10,500/Protease 25,000/Amylase 43,750 (Units) Dr Aponte FEEDTUBE PRN PRN For Clogged Feeding Tube Dextrose 50 ml 06/09/21 11:13 Dextrose 50% In Water (25gm) 50 Ml Syringe IV Q30MIN PRN Hypoglycemia Protocol Fentanyl 25 mcg 06/14/21 15:21 Fentanyl 100 Mcg/2 Ml Inj IV Q4HR PRN Pain, Moderate (4-6) Hydrophilic Ointment 1 applic 06/09/21 03:26 06/12/21 20:00 Lip Therapy Vaseline TP 1 applic Q2HR PRN Administration Dry Lips Pantoprazole Sodium 80 mg/ 100 mls @ 10 mls/hr 06/09/21 12:00 06/14/21 09:00 Sodium Chloride IV 8 mg/hr DIRECT GABINO 10 mls/hr Administration 8 MG/HR Multi-Ingred Cream/Lotion/Oil/Oint 1 applic 06/09/21 03:26 06/12/21 20:05 Mineral Oil/Petrolatum, White Ophth Oint 3.5 Gm OU 1 applic Q4HR PRN Administration Dry Eye(s) Simple Syrup 15 ml 06/14/21 16:23 Simple Syrup 15 Ml FEEDTUBE PRN PRN Hypoglycemia Simple Syrup 30 ml 06/14/21 16:23 Simple Syrup 15 Ml FEEDTUBE PRN PRN Hypoglycemia Sodium Bicarbonate 325 mg 06/14/21 16:23 Sodium Bicarbonate 325 Mg Tab FEEDTUBE PRN PRN For Clogged Feeding Tube Sodium Chloride 10 ml 06/09/21 22:00 06/14/21 09:30 Sodium Chloride 0.9% 10 Ml Flush Syringe IV 10 ml BID GABINO Administration Sodium Chloride 10 ml 06/09/21 11:13 Sodium Chloride 0.9% 10 Ml Flush Syringe IV PRN PRN LINE FLUSH
[2021-06-15] MEDS: PANTOPRAZOLE 80 MG in SODIUM CHLORIDE 0.9% 100 ML IV SCH ×2 (00:01→08:26)
--- NOTE | 2021-06-15 03:26 | XRay Report ---
CHEST 1 VIEW INDICATION / CLINICAL INFORMATION: follow up respiratory failure STUDY TIME: 244 COMPARISON: 06/14/2021 FINDINGS: SUPPORT DEVICES: Stable HEART / MEDIASTINUM: Stable LUNGS / PLEURA: Mild diffuse increased interstitial markings are not significantly changed. Mild patc hy density in the left mid to lower lung field could be minimal developing infiltrate however. No pne umothorax. ADDITIONAL FINDINGS: No significant additional findings. Signer Name: Brayan Armenta MD Signed: 06/15/2021 3:22 AM Workstation Name: [id number]
[2021-06-15 05:07] LABS: Red Blood Count 3.05 M/mm3 (3.65-5.03)
[2021-06-15 05:08] LABS: Hematocrit 23.3 % (30.3-42.9); Hemoglobin 7.5 gm/dl (10.1-14.3); Mean Corpuscular HGB Conc 32 % (30-34); Mean Corpuscular Volume 76 fl (79-97); Platelet Count 109 K/mm3 (140-440); Red Cell Distribution Width 23.1 % (13.2-15.2)
[2021-06-15 05:11] LABS: INR 1.53 (0.87-1.13)
[2021-06-15 05:25] LABS: Calcium 6.5 mg/dL (8.4-10.2)
[2021-06-15 06:54] LABS: Band Neutrophils # (Manual) 0.2 K/mm3; Total Cells Counted 100
[2021-06-15 06:56] LABS: Anisocytosis 2+; Hypochromasia 2+; Poikilocytosis 1+
[2021-06-15 06:57] LABS: Platelet Estimate Consistent w Auto; Target Cells 1+
--- NOTE | 2021-06-15 08:49 | Magnetic Resonance Report ---
MR brain wo con INDICATION / CLINICAL INFORMATION: 60 years Female; HYPOXIA ANOXIA BRAIN INJURY. TECHNIQUE: Multiplanar, multisequence MR images of the brain were obtained. COMPARISON: 06/12/2021 FINDINGS: BRAIN / INTRACRANIAL CONTENTS: Increased diffusion signal is seen in the cortex of the posterior MCA and PACK CHANGER territories bilaterally in a symmetric fashion. These findings are mildly positive on the FLA IR sequence. These findings are also positive on the ADC map as well. While hypoxic injury might caus e these findings, Etiologies such as posterior reversible encephalopathic syndrome, severe hypoglycem ia, post ictal change, etc. might also be considered. Otherwise, no acute hemorrhage, mass effect, midline shift, hydrocephalus, or acute, large territori al infarct. No chronic infarct or atrophy. No significant white matter abnormality. CRANIOCERVICAL JUNCTION: No significant abnormality. VASCULAR FLOW-VOIDS: No significant abnormality. ORBITS: No significant abnormality of visualized orbits. SINUSES / MASTOIDS: Patient is intubated. Air-fluid level seen in the right sphenoid sinus. Mild to m oderate mucosal thickening and small air-fluid levels seen in the mastoids. Desiccated secretions see n layering in the nasopharynx. ADDITIONAL FINDINGS: None. IMPRESSION: 1. Subtle cortical signal abnormality in the posterior cerebral hemispheres as described above. Pleas e clinically correlate. 2. Otherwise, no focal mass, hemorrhage, hydrocephalus, or acute, large territorial infarct seen. Signer Name: Gildardo Webber MD, III Signed: 06/15/2021 8:45 AM Workstation Name: [id number]
[2021-06-15] MEDS ORDERED: SODIUM CHLORIDE 0.9% 100 ML IV PRN (08:53)
--- NOTE | 2021-06-15 08:53 | Progress Note ---
Assessment and Plan - Patient Problems (1) Acute kidney injury Current Visit: Yes Status: Acute Plan to address problem: Worsening acute kidney injury likely secondary to acute tubular necrosis in the setting of cardiac arrest and severely decreased hemoglobin levels in the setting of upper GI bleed. Urinalysis however was also concerning for evidence of microscopic hematuria and proteinuria, indicating a possible underlying glomerulonephritis picture. Given worsening renal function along with anemia and given nephritic type urine analysis will undergo further testing at this time which will include serologic markers including complement levels and ANCA vasculitis levels. Will also add an anti-GBM antibody test at this time. We will monitor closely. Pending results at this time. Please avoid all nephrotoxins and maintain mean arterial pressures above 65 mmHg. Renal ultrasound reviewed without any acute abnormalities noted. Discussed with primary staff and recommend starting on pulse dose steroids x 3 days. Will start with 1g solumedrol today followed by 500 mg x 2 days. Vascath placed. Will initiate HD today given worsening renal parameters. (2) Cardiac arrest Onset Date: ~06/09/21 Current Visit: Yes Status: Acute Plan to address problem: With return of spontaneous circulation. Off pressor support at this time. Will monitor closely. (3) GI bleed Onset Date: ~06/09/21 Current Visit: Yes Status: Acute Qualifiers: GI bleed type/associated pathology: unspecified gastrointestinal hemorrhage type Qualified Code(s): K92.2 - Gastrointestinal hemorrhage, unspecified Plan to address problem: That is post emergent EGD showing large amount of old blood without any evidence of active bleeding sites noted. We will continue to monitor closely. Continues on on Protonix drip. Await further recommendations from gastroenterology. Overall rate of GI bleeding seems to be decreased and hemoglobin/hematocrit levels are stable this morning. (4) Acute respiratory failure Current Visit: Yes Status: Acute Plan to address problem: Ventilator management per pulmonology. Stable on current vent settings. Subjective Date of service: 06/15/21 Principal diagnosis: UGI bleed Interval history: Renal function shows worsening. Discussed with family. Will proceed with HD today. Objective - Vital Signs Vital signs: Vital Signs - 12hr 06/14/21 06/14/21 06/14/21 21:00 21:10 21:20 Temperature Pulse Rate 91 H 91 H 91 H Pulse Rate [ From Monitor] Respiratory 25 H 23 24 Rate Blood Pressure 117/66 117/66 117/66 O2 Sat by Pulse 98 99 99 Oximetry 06/14/21 06/14/21 06/14/21 21:30 21:40 21:50 Temperature Pulse Rate 97 H 100 H 98 H Pulse Rate [ From Monitor] Respiratory 25 H 29 H 28 H Rate Blood Pressure 117/66 117/66 117/66 O2 Sat by Pulse 99 99 99 Oximetry 06/14/21 06/14/21 06/14/21 22:00 22:10 22:30 Temperature Pulse Rate 105 H 105 H 105 H Pulse Rate [ From Monitor] Respiratory 31 H 31 H 31 H Rate Blood Pressure 129/80 129/80 117/66 O2 Sat by Pulse 99 99 Oximetry 06/14/21 06/14/21 06/14/21 22:46 22:56 23:00 Temperature Pulse Rate 106 H 102 H 102 H Pulse Rate [ From Monitor] Respiratory 31 H 29 H 31 H Rate Blood Pressure 117/66 117/66 136/85 O2 Sat by Pulse 99 99 99 Oximetry 06/14/21 06/14/21 06/14/21 23:01 23:10 23:20 Temperature Pulse Rate 103 H 100 H Pulse Rate [ 95 H From Monitor] Respiratory 32 H 28 H Rate Blood Pressure 136/85 136/85 O2 Sat by Pulse 100 99 99 Oximetry 06/14/21 06/14/21 06/14/21 23:30 23:40 23:50 Temperature Pulse Rate 101 H 106 H 106 H Pulse Rate [ From Monitor] Respiratory 26 H 31 H 30 H Rate Blood Pressure 136/85 136/85 136/85 O2 Sat by Pulse 99 100 99 Oximetry 06/14/21 06/14/21 06/15/21 23:52 23:53 00:00 Temperature 99 F Pulse Rate 104 H 105 H Pulse Rate [ From Monitor] Respiratory 31 H Rate Blood Pressure 136/85 139/87 O2 Sat by Pulse 100 100 Oximetry 06/15/21 06/15/21 06/15/21 00:10 00:20 00:30 Temperature Pulse Rate 111 H 107 H 108 H Pulse Rate [ From Monitor] Respiratory 38 H 32 H 29 H Rate Blood Pressure 139/87 139/87 139/87 O2 Sat by Pulse 100 100 100 Oximetry 06/15/21 06/15/21 06/15/21 00:40 00:50 01:00 Temperature Pulse Rate 107 H 108 H 104 H Pulse Rate [ From Monitor] Respiratory 29 H 31 H 27 H Rate Blood Pressure 139/87 139/87 147/82 O2 Sat by Pulse 100 100 100 Oximetry 06/15/21 06/15/21 06/15/21 01:10 01:20 01:30 Temperature Pulse Rate 101 H 102 H 99 H Pulse Rate [ From Monitor] Respiratory 24 24 25 H Rate Blood Pressure 147/82 147/82 147/82 O2 Sat by Pulse 100 100 100 Oximetry 06/15/21 06/15/21 06/15/21 01:40 01:50 02:00 Temperature Pulse Rate 100 H 96 H 95 H Pulse Rate [ From Monitor] Respiratory 23 26 H 26 H Rate Blood Pressure 147/82 147/82 141/75 O2 Sat by Pulse 100 100 99 Oximetry 06/15/21 06/15/21 06/15/21 02:10 02:20 02:30 Temperature Pulse Rate 104 H 94 H 92 H Pulse Rate [ From Monitor] Respiratory 27 H 23 23 Rate Blood Pressure 141/75 141/75 147/82 O2 Sat by Pulse 100 100 100 Oximetry 06/15/21 06/15/21 06/15/21 02:40 02:50 03:00 Temperature Pulse Rate 89 93 H 87 Pulse Rate [ 95 H From Monitor] Respiratory 22 21 22 Rate Blood Pressure 147/82 147/82 119/65 O2 Sat by Pulse 100 100 98 Oximetry 06/15/21 06/15/21 06/15/21 03:10 03:20 03:26 Temperature 97.9 F Pulse Rate 90 88 Pulse Rate [ From Monitor] Respiratory 20 20 Rate Blood Pressure 119/65 119/65 O2 Sat by Pulse 100 100 Oximetry 06/15/21 06/15/21 06/15/21 03:30 03:40 03:48 Temperature Pulse Rate 85 88 91 H Pulse Rate [ From Monitor] Respiratory 20 20 Rate Blood Pressure 119/65 119/65 119/65 O2 Sat by Pulse 100 100 100 Oximetry 06/15/21 06/15/21 06/15/21 03:50 04:00 04:10 Temperature Pulse Rate 103 H 91 H 88 Pulse Rate [ From Monitor] Respiratory 26 H 22 22 Rate Blood Pressure 119/65 107/76 107/76 O2 Sat by Pulse 100 100 100 Oximetry 06/15/21 06/15/21 06/15/21 04:20 04:30 04:40 Temperature Pulse Rate 86 87 86 Pulse Rate [ From Monitor] Respiratory 20 19 19 Rate Blood Pressure 107/76 107/76 107/76 O2 Sat by Pulse 100 100 100 Oximetry 06/15/21 06/15/21 06/15/21 04:50 05:00 05:10 Temperature Pulse Rate 85 82 82 Pulse Rate [ From Monitor] Respiratory 19 20 19 Rate Blood Pressure 107/76 108/65 108/65 O2 Sat by Pulse 100 100 Oximetry 06/15/21 06/15/21 06/15/21 05:20 05:30 05:40 Temperature Pulse Rate 81 83 80 Pulse Rate [ From Monitor] Respiratory 19 19 19 Rate Blood Pressure 108/65 108/65 108/65 O2 Sat by Pulse 100 100 100 Oximetry 06/15/21 06/15/21 06/15/21 05:50 06:00 06:10 Temperature Pulse Rate 79 80 87 Pulse Rate [ From Monitor] Respiratory 18 19 21 Rate Blood Pressure 108/65 99/63 108/65 O2 Sat by Pulse 100 99 100 Oximetry 06/15/21 06/15/21 06/15/21 06:20 06:30 07:31 Temperature 97.3 F L Pulse Rate 93 H 95 H Pulse Rate [ From Monitor] Respiratory 22 27 H Rate Blood Pressure 108/65 108/65 O2 Sat by Pulse 100 100 Oximetry 06/15/21 07:48 Temperature Pulse Rate 107 H Pulse Rate [ From Monitor] Respiratory Rate Blood Pressure 143/86 O2 Sat by Pulse 99 Oximetry - General Appearance General appearance: intubated, frail EENT: ATNC Neck: no JVD Respiratory: Present: Decreased Breath Sounds Cardiology: regular Gastrointestinal: normal Integumentary: warm and dry Musculoskeletal: deferred - Lab 06/15/21 04:30 06/15/21 04:30 Most recent lab results ABG pH 7.419 (7.320-7.450) 06/15/21 03:39 ABG pCO2 24.1 mm Hg 06/12/21 04:50 ABG pO2 127.8 mm Hg (80.0-90.0) H 06/12/21 04:50 ABG HCO3 13.2 mmol/L (20.0-26.0) L 06/12/21 04:50 ABG O2 Saturation 99.0 (0-100) 06/15/21 03:39 Calcium 6.5 mg/dL (8.4-10.2) L 06/15/21 04:30 Phosphorus 6.70 mg/dL (2.5-4.5) H 06/12/21 04:03 Magnesium 1.70 mg/dL (1.7-2.3) 06/12/21 04:03 Urine Creatinine 28.0 mg/dL (0.1-20.0) H 06/13/21 00:16 Urine Sodium 109 mmol/L 06/13/21 00:16 - Allied health notes Allied health notes reviewed: nursing Medications & Allergies - Medications Allergies/Adverse Reactions: Allergies No Known Allergies Allergy (Verified 05/22/16 22:45) Home Medications: Home Medications Medication Instructions Recorded Confirmed Last Taken Type No Known Home Medications [No 06/09/21 06/09/21 Unknown History Reported Home Medications] Active Medications: Generic Name Dose Route Start Last Admin Trade Name Freq PRN Reason Stop Dose Admin Lipase/Protease/Amylase 1 each 06/14/21 16:23 Lipase 10,500/Protease 25,000/Amylase 43,750 (Units) Dr Aponte FEEDTUBE PRN PRN For Clogged Feeding Tube Dextrose 50 ml 06/09/21 11:13 Dextrose 50% In Water (25gm) 50 Ml Syringe IV Q30MIN PRN Hypoglycemia Protocol Fentanyl 25 mcg 06/14/21 15:21 Fentanyl 100 Mcg/2 Ml Inj IV Q4HR PRN Pain, Moderate (4-6) Hydrophilic Ointment 1 applic 06/09/21 03:26 06/12/21 20:00 Lip Therapy Vaseline TP 1 applic Q2HR PRN Administration Dry Lips Multi-Ingred Cream/Lotion/Oil/Oint 1 applic 06/09/21 03:26 06/12/21 20:05 Mineral Oil/Petrolatum, White Ophth Oint 3.5 Gm OU 1 applic Q4HR PRN Administration Dry Eye(s) Pantoprazole Sodium 40 mg 06/15/21 22:00 Pantoprazole 40 Mg Inj IV BID GABINO Simple Syrup 15 ml 06/14/21 16:23 Simple Syrup 15 Ml FEEDTUBE PRN PRN Hypoglycemia Simple Syrup 30 ml 06/14/21 16:23 Simple Syrup 15 Ml FEEDTUBE PRN PRN Hypoglycemia Sodium Bicarbonate 325 mg 06/14/21 16:23 Sodium Bicarbonate 325 Mg Tab FEEDTUBE PRN PRN For Clogged Feeding Tube Sodium Chloride 10 ml 06/09/21 22:00 06/15/21 00:58 Sodium Chloride 0.9% 10 Ml Flush Syringe IV 10 ml BID GABINO Administration Sodium Chloride 10 ml 06/09/21 11:13 Sodium Chloride 0.9% 10 Ml Flush Syringe IV PRN PRN LINE FLUSH
--- NOTE | 2021-06-15 09:50 | Progress Note ---
Assessment and Plan 60 y/o female with cardiac arrest, intubated found to have UPPER GI bleed but no exact source of bleeding found 06/15/21: Hold on checking UDS today given that dialysis will start today. Steroids today. Monitor blood sugars. Await neurology input in regards to MRI reading. Patient was hypoglycemic on admission (20). MRI mentions that hypoglycemia could cause current presentation seen on MRI. Sugars have been stable since admission. Ok with increasing tube feeds as she tolerated trickle feeds. HgB at 7.5 this am. No evidence of acute bleed. repeat tomorrow and if less than 7 then transfuse. If large drop then would need to reconsult GI. Guarded prognosis. 06/14/21: UDS still positive for benzo's. Spoke with renal and went ahead and put HD catheter in (spoke with all of family on speaker phone) in anticipation of possible HD. Will check daily UDS until clear as this could effect mental state, along with uremia and possible anoxic brain injury. Await MRI and await Neurology input. Guarded prognosis. 06/13/21: Will check UDS daily to see if benzo's continue to hang around. Not sure if dialysis can help but may need this to clear out drugs to see if patient will wake up. Renal has already seen today so await there assessment tomorrow after viewing my note. repeat UDS again as patient is still making urine. No new neurology notes or follow up. MRI not done, head CT suggests anoxic brain injury but not definite. Still think that all other metabolic derangements would need to be addressed. Guarded prognosis. 06/12/21: Reviewed chart and Neurology note. Will send UDS to make sure benzo's have cleared as she was on a versed drip. Discontinued all mind altering therapy. Very guarded prognosis. Patient may have been down longer than known with CPR. 1. Discontinue all sedation 2. Attempt PSV and then extubate 3. Follow up GI recs 4. Will continue to follow, with serial H/H's. CCT 31 minutes. Subjective Date of service: 06/15/21 Principal diagnosis: UGI bleed Interval history: Remains unresponsive. Renal Initiating HD today. I forgot to start steroids but renal started it this morning. Objective Vital Signs - 12hr 06/14/21 06/14/21 06/14/21 21:50 22:00 22:10 Temperature Pulse Rate 98 H 105 H 105 H Pulse Rate [ From Monitor] Respiratory 28 H 31 H 31 H Rate Blood Pressure 117/66 129/80 129/80 O2 Sat by Pulse 99 99 Oximetry 06/14/21 06/14/21 06/14/21 22:30 22:46 22:56 Temperature Pulse Rate 105 H 106 H 102 H Pulse Rate [ From Monitor] Respiratory 31 H 31 H 29 H Rate Blood Pressure 117/66 117/66 117/66 O2 Sat by Pulse 99 99 99 Oximetry 06/14/21 06/14/21 06/14/21 23:00 23:01 23:10 Temperature Pulse Rate 102 H 103 H Pulse Rate [ 95 H From Monitor] Respiratory 31 H 32 H Rate Blood Pressure 136/85 136/85 O2 Sat by Pulse 99 100 99 Oximetry 06/14/21 06/14/21 06/14/21 23:20 23:30 23:40 Temperature Pulse Rate 100 H 101 H 106 H Pulse Rate [ From Monitor] Respiratory 28 H 26 H 31 H Rate Blood Pressure 136/85 136/85 136/85 O2 Sat by Pulse 99 99 100 Oximetry 06/14/21 06/14/21 06/14/21 23:50 23:52 23:53 Temperature 99 F Pulse Rate 106 H 104 H Pulse Rate [ From Monitor] Respiratory 30 H Rate Blood Pressure 136/85 136/85 O2 Sat by Pulse 99 100 Oximetry 06/15/21 06/15/21 06/15/21 00:00 00:10 00:20 Temperature Pulse Rate 105 H 111 H 107 H Pulse Rate [ From Monitor] Respiratory 31 H 38 H 32 H Rate Blood Pressure 139/87 139/87 139/87 O2 Sat by Pulse 100 100 100 Oximetry 06/15/21 06/15/21 06/15/21 00:30 00:40 00:50 Temperature Pulse Rate 108 H 107 H 108 H Pulse Rate [ From Monitor] Respiratory 29 H 29 H 31 H Rate Blood Pressure 139/87 139/87 139/87 O2 Sat by Pulse 100 100 100 Oximetry 06/15/21 06/15/21 06/15/21 01:00 01:10 01:20 Temperature Pulse Rate 104 H 101 H 102 H Pulse Rate [ From Monitor] Respiratory 27 H 24 24 Rate Blood Pressure 147/82 147/82 147/82 O2 Sat by Pulse 100 100 100 Oximetry 06/15/21 06/15/21 06/15/21 01:30 01:40 01:50 Temperature Pulse Rate 99 H 100 H 96 H Pulse Rate [ From Monitor] Respiratory 25 H 23 26 H Rate Blood Pressure 147/82 147/82 147/82 O2 Sat by Pulse 100 100 100 Oximetry 06/15/21 06/15/21 06/15/21 02:00 02:10 02:20 Temperature Pulse Rate 95 H 104 H 94 H Pulse Rate [ From Monitor] Respiratory 26 H 27 H 23 Rate Blood Pressure 141/75 141/75 141/75 O2 Sat by Pulse 99 100 100 Oximetry 06/15/21 06/15/21 06/15/21 02:30 02:40 02:50 Temperature Pulse Rate 92 H 89 93 H Pulse Rate [ From Monitor] Respiratory 23 22 21 Rate Blood Pressure 147/82 147/82 147/82 O2 Sat by Pulse 100 100 100 Oximetry 06/15/21 06/15/21 06/15/21 03:00 03:10 03:20 Temperature Pulse Rate 87 90 88 Pulse Rate [ 95 H From Monitor] Respiratory 22 20 20 Rate Blood Pressure 119/65 119/65 119/65 O2 Sat by Pulse 98 100 100 Oximetry 06/15/21 06/15/21 06/15/21 03:26 03:30 03:40 Temperature 97.9 F Pulse Rate 85 88 Pulse Rate [ From Monitor] Respiratory 20 20 Rate Blood Pressure 119/65 119/65 O2 Sat by Pulse 100 100 Oximetry 06/15/21 06/15/21 06/15/21 03:48 03:50 04:00 Temperature Pulse Rate 91 H 103 H 91 H Pulse Rate [ From Monitor] Respiratory 26 H 22 Rate Blood Pressure 119/65 119/65 107/76 O2 Sat by Pulse 100 100 100 Oximetry 06/15/21 06/15/21 06/15/21 04:10 04:20 04:30 Temperature Pulse Rate 88 86 87 Pulse Rate [ From Monitor] Respiratory 22 20 19 Rate Blood Pressure 107/76 107/76 107/76 O2 Sat by Pulse 100 100 100 Oximetry 06/15/21 06/15/21 06/15/21 04:40 04:50 05:00 Temperature Pulse Rate 86 85 82 Pulse Rate [ From Monitor] Respiratory 19 19 20 Rate Blood Pressure 107/76 107/76 108/65 O2 Sat by Pulse 100 100 Oximetry 06/15/21 06/15/21 06/15/21 05:10 05:20 05:30 Temperature Pulse Rate 82 81 83 Pulse Rate [ From Monitor] Respiratory 19 19 19 Rate Blood Pressure 108/65 108/65 108/65 O2 Sat by Pulse 100 100 100 Oximetry 06/15/21 06/15/21 06/15/21 05:40 05:50 06:00 Temperature Pulse Rate 80 79 80 Pulse Rate [ From Monitor] Respiratory 19 18 19 Rate Blood Pressure 108/65 108/65 99/63 O2 Sat by Pulse 100 100 99 Oximetry 06/15/21 06/15/21 06/15/21 06:10 06:20 06:30 Temperature Pulse Rate 87 93 H 95 H Pulse Rate [ From Monitor] Respiratory 21 22 27 H Rate Blood Pressure 108/65 108/65 108/65 O2 Sat by Pulse 100 100 100 Oximetry 06/15/21 06/15/21 06/15/21 06:40 06:50 07:00 Temperature Pulse Rate 93 H 95 H 96 H Pulse Rate [ 108 H From Monitor] Respiratory 23 23 25 H Rate Blood Pressure 108/65 108/65 143/86 O2 Sat by Pulse 100 100 99 Oximetry 06/15/21 06/15/21 06/15/21 07:10 07:20 07:30 Temperature Pulse Rate 97 H 102 H 104 H Pulse Rate [ From Monitor] Respiratory 28 H 28 H 28 H Rate Blood Pressure 143/86 143/86 143/86 O2 Sat by Pulse 100 100 100 Oximetry 06/15/21 06/15/21 06/15/21 07:31 07:40 07:48 Temperature 97.3 F L Pulse Rate 104 H 107 H Pulse Rate [ From Monitor] Respiratory 28 H Rate Blood Pressure 99/63 143/86 O2 Sat by Pulse 99 99 Oximetry 06/15/21 06/15/21 06/15/21 07:50 08:00 08:10 Temperature Pulse Rate 117 H 108 H 112 H Pulse Rate [ From Monitor] Respiratory 23 31 H 32 H Rate Blood Pressure 99/63 139/93 143/86 O2 Sat by Pulse 100 99 Oximetry 06/15/21 06/15/21 06/15/21 08:20 08:30 08:40 Temperature Pulse Rate 110 H 118 H 114 H Pulse Rate [ From Monitor] Respiratory 28 H 34 H 29 H Rate Blood Pressure 143/86 143/86 139/93 O2 Sat by Pulse 99 99 98 Oximetry 06/15/21 06/15/21 08:50 09:00 Temperature Pulse Rate 114 H 112 H Pulse Rate [ From Monitor] Respiratory 33 H 30 H Rate Blood Pressure 139/93 133/87 O2 Sat by Pulse 98 Oximetry CBC and BMP: 06/15/21 04:30 06/15/21 04:30 ABG, PT/INR, D-dimer: ABG ABG pH 7.419 (7.320-7.450) 06/15/21 03:39 POC ABG pCO2 21.2 mmHg (32.0-48.0) L 06/15/21 03:39 ABG pCO2 24.1 mm Hg 06/12/21 04:50 POC ABG pO2 146.6 mmHg (83-108) H 06/15/21 03:39 ABG pO2 127.8 mm Hg (80.0-90.0) H 06/12/21 04:50 POC ABG HCO3 13.4 06/15/21 03:39 ABG O2 Saturation 99.0 (0-100) 06/15/21 03:39 PT/INR, D-dimer PT 18.9 Sec. (12.2-14.9) H 06/15/21 04:30 INR 1.53 (0.87-1.13) H 06/15/21 04:30 Abnormal lab findings: Abnormal Labs 06/09/21 06/09/21 06/09/21 03:27 03:42 03:59 WBC RBC 1.57 L Hgb 3.0 L* Hct 11.8 L* MCV 75 L MCH 19 L MCHC 26 L RDW 21.7 H Plt Count 109 L Lymph % (Auto) 9.7 L [place] % (Auto) 8.5 H Lymph # (Auto) 0.9 L [place] # (Auto) Seg Neutrophils % 81.2 H Seg Neuts % (Manual) Lymphocytes % (Manual) Nucleated RBC % Seg Neutrophils # Seg Neutrophils # Man Lymphocytes # (Manual) PT INR APTT Fibrinogen ABG pH POC ABG pCO2 POC ABG pO2 ABG pO2 ABG HCO3 ABG Base Excess ABG Hemoglobin ABG Oxyhemoglobin ABG Sodium ABG Potassium ABG Chloride ABG Glucose Carboxyhemoglobin Sodium Potassium Chloride 95.2 L Carbon Dioxide 8 L* BUN 18 H Creatinine Glucose 540 H* POC Glucose Lactic Acid 28.20 H* Calcium 11.5 H Phosphorus Magnesium Total Bilirubin AST 411 H ALT 106 H Lactate Dehydrogenase Total Protein 4.9 L Albumin 2.4 L Arterial Blood Glucose Arterial Blood Ionized Calcium Urine WBC (Auto) Urine Creatinine Crossmatch 06/09/21 06/09/21 06/09/21 03:59 04:00 04:04 WBC RBC Hgb Hct MCV MCH MCHC RDW Plt Count Lymph % (Auto) [place] % (Auto) Lymph # (Auto) [place] # (Auto) Seg Neutrophils % Seg Neuts % (Manual) Lymphocytes % (Manual) Nucleated RBC % Seg Neutrophils # Seg Neutrophils # Man Lymphocytes # (Manual) PT 34.3 H INR 3.36 H APTT 66.3 H* Fibrinogen ABG pH 6.845 L POC ABG pCO2 POC ABG pO2 116.6 H ABG pO2 ABG HCO3 ABG Base Excess ABG Hemoglobin 2.6 L ABG Oxyhemoglobin 90.6 L ABG Sodium ABG Potassium 3.0 L ABG Chloride ABG Glucose 334 H Carboxyhemoglobin 1.8 H Sodium Potassium Chloride Carbon Dioxide BUN Creatinine Glucose POC Glucose Lactic Acid Calcium Phosphorus Magnesium Total Bilirubin AST ALT Lactate Dehydrogenase Total Protein Albumin Arterial Blood Glucose 334 H Arterial Blood Ionized Calcium Urine WBC (Auto) Urine Creatinine Crossmatch See Detail 06/09/21 06/09/21 06/09/21 05:16 11:42 11:44 WBC RBC Hgb Hct MCV MCH MCHC RDW Plt Count Lymph % (Auto) [place] % (Auto) Lymph # (Auto) [place] # (Auto) Seg Neutrophils % Seg Neuts % (Manual) Lymphocytes % (Manual) Nucleated RBC % Seg Neutrophils # Seg Neutrophils # Man Lymphocytes # (Manual) PT INR APTT Fibrinogen ABG pH POC ABG pCO2 POC ABG pO2 ABG pO2 ABG HCO3 ABG Base Excess ABG Hemoglobin ABG Oxyhemoglobin ABG Sodium ABG Potassium ABG Chloride ABG Glucose Carboxyhemoglobin Sodium Potassium Chloride 109.5 H Carbon Dioxide 4 L* BUN 19 H Creatinine Glucose 158 H POC Glucose 191 H Lactic Acid 25.20 H* Calcium 7.8 L D Phosphorus Magnesium Total Bilirubin AST ALT Lactate Dehydrogenase 2208 H Total Protein Albumin Arterial Blood Glucose Arterial Blood Ionized Calcium Urine WBC (Auto) Urine Creatinine Crossmatch 06/09/21 06/09/21 06/10/21 12:27 12:27 04:21 WBC 14.2 H RBC 3.58 L Hgb 8.9 L D Hct 29.9 L D MCV MCH 25 L MCHC RDW 22.0 H Plt Count 94 L Lymph % (Auto) [place] % (Auto) Lymph # (Auto) [place] # (Auto) Seg Neutrophils % Seg Neuts % (Manual) 87.0 H Lymphocytes % (Manual) 5.0 L Nucleated RBC % Seg Neutrophils # Seg Neutrophils # Man 12.4 H Lymphocytes # (Manual) 0.7 L PT 36.0 H INR 3.58 H APTT 52.6 H Fibrinogen 83 L* ABG pH 7.323 L POC ABG pCO2 POC ABG pO2 ABG pO2 152.9 H ABG HCO3 12.6 L ABG Base Excess -12.0 L ABG Hemoglobin 9.2 L ABG Oxyhemoglobin ABG Sodium ABG Potassium ABG Chloride ABG Glucose Carboxyhemoglobin Sodium Potassium Chloride Carbon Dioxide BUN Creatinine Glucose POC Glucose Lactic Acid Calcium Phosphorus Magnesium Total Bilirubin AST ALT Lactate Dehydrogenase Total Protein Albumin Arterial Blood Glucose Arterial Blood Ionized Calcium Urine WBC (Auto) Urine Creatinine Crossmatch 06/10/21 06/10/21 06/10/21 04:27 04:27 06:59 WBC 14.1 H RBC Hgb Hct MCV MCH 25 L MCHC RDW 20.0 H Plt Count 99 L Lymph % (Auto) 4.2 L [place] % (Auto) 8.6 H Lymph # (Auto) 0.6 L [place] # (Auto) 1.2 H Seg Neutrophils % 86.6 H Seg Neuts % (Manual) Lymphocytes % (Manual) Nucleated RBC % Seg Neutrophils # 12.2 H Seg Neutrophils # Man Lymphocytes # (Manual) PT INR APTT Fibrinogen ABG pH POC ABG pCO2 POC ABG pO2 ABG pO2 ABG HCO3 ABG Base Excess ABG Hemoglobin ABG Oxyhemoglobin ABG Sodium ABG Potassium ABG Chloride ABG Glucose Carboxyhemoglobin Sodium 146 H Potassium 3.4 L Chloride 115.2 H Carbon Dioxide 14 L D BUN 30 H Creatinine 1.9 H D Glucose 122 H POC Glucose Lactic Acid 4.60 H* Calcium 7.4 L Phosphorus Magnesium Total Bilirubin 7.00 H AST 2708 H ALT 522 H Lactate Dehydrogenase Total Protein 4.8 L Albumin 2.4 L Arterial Blood Glucose Arterial Blood Ionized Calcium Urine WBC (Auto) Urine Creatinine Crossmatch 06/10/21 06/10/21 06/10/21 06:59 08:23 08:47 WBC RBC Hgb Hct MCV MCH MCHC RDW Plt Count Lymph % (Auto) [place] % (Auto) Lymph # (Auto) [place] # (Auto) Seg Neutrophils % Seg Neuts % (Manual) Lymphocytes % (Manual) Nucleated RBC % Seg Neutrophils # Seg Neutrophils # Man Lymphocytes # (Manual) PT 26.8 H INR 2.42 H APTT Fibrinogen ABG pH POC ABG pCO2 POC ABG pO2 ABG pO2 ABG HCO3 ABG Base Excess ABG Hemoglobin ABG Oxyhemoglobin ABG Sodium ABG Potassium ABG Chloride ABG Glucose Carboxyhemoglobin Sodium Potassium Chloride Carbon Dioxide BUN Creatinine Glucose POC Glucose 121 H Lactic Acid Calcium Phosphorus Magnesium Total Bilirubin AST ALT Lactate Dehydrogenase Total Protein Albumin Arterial Blood Glucose Arterial Blood Ionized Calcium Urine WBC (Auto) 23.0 H Urine Creatinine Crossmatch 06/10/21 06/10/21 06/11/21 11:47 23:46 03:52 WBC RBC Hgb Hct MCV MCH MCHC RDW Plt Count Lymph % (Auto) [place] % (Auto) Lymph # (Auto) [place] # (Auto) Seg Neutrophils % Seg Neuts % (Manual) Lymphocytes % (Manual) Nucleated RBC % Seg Neutrophils # Seg Neutrophils # Man Lymphocytes # (Manual) PT INR APTT Fibrinogen ABG pH POC ABG pCO2 POC ABG pO2 ABG pO2 148.9 H ABG HCO3 13.0 L ABG Base Excess -10.1 L ABG Hemoglobin 9.1 L ABG Oxyhemoglobin ABG Sodium ABG Potassium ABG Chloride ABG Glucose Carboxyhemoglobin Sodium Potassium Chloride Carbon Dioxide BUN Creatinine Glucose POC Glucose Lactic Acid 4.40 H* 3.30 H* Calcium Phosphorus Magnesium Total Bilirubin AST ALT Lactate Dehydrogenase Total Protein Albumin Arterial Blood Glucose Arterial Blood Ionized Calcium Urine WBC (Auto) Urine Creatinine Crossmatch 06/11/21 06/11/21 06/11/21 05:05 10:38 10:38 WBC 12.6 H RBC 3.38 L Hgb 8.5 L Hct 26.3 L MCV 78 L MCH 25 L MCHC RDW 20.6 H Plt Count 97 L Lymph % (Auto) [place] % (Auto) Lymph # (Auto) [place] # (Auto) Seg Neutrophils % Seg Neuts % (Manual) Lymphocytes % (Manual) Nucleated RBC % Seg Neutrophils # Seg Neutrophils # Man Lymphocytes # (Manual) PT 23.1 H INR 1.98 H APTT Fibrinogen ABG pH POC ABG pCO2 POC ABG pO2 ABG pO2 ABG HCO3 ABG Base Excess ABG Hemoglobin ABG Oxyhemoglobin ABG Sodium ABG Potassium ABG Chloride ABG Glucose Carboxyhemoglobin Sodium Potassium Chloride Carbon Dioxide BUN Creatinine Glucose POC Glucose Lactic Acid 2.40 H* Calcium Phosphorus Magnesium Total Bilirubin AST ALT Lactate Dehydrogenase Total Protein Albumin Arterial Blood Glucose Arterial Blood Ionized Calcium Urine WBC (Auto) Urine Creatinine Crossmatch 06/11/21 06/11/21 06/11/21 10:38 10:38 12:15 WBC RBC Hgb Hct MCV MCH MCHC RDW Plt Count Lymph % (Auto) [place] % (Auto) Lymph # (Auto) [place] # (Auto) Seg Neutrophils % Seg Neuts % (Manual) Lymphocytes % (Manual) Nucleated RBC % Seg Neutrophils # Seg Neutrophils # Man Lymphocytes # (Manual) PT INR APTT Fibrinogen ABG pH POC ABG pCO2 POC ABG pO2 ABG pO2 ABG HCO3 ABG Base Excess ABG Hemoglobin ABG Oxyhemoglobin ABG Sodium ABG Potassium ABG Chloride ABG Glucose Carboxyhemoglobin Sodium 147 H Potassium Chloride 118.1 H Carbon Dioxide 11 L BUN 53 H Creatinine 3.2 H D Glucose 104 H POC Glucose Lactic Acid 2.30 H* Calcium 5.9 L* D 5.9 L* Phosphorus 7.10 H Magnesium 1.60 L Total Bilirubin 4.20 H AST 2252 H ALT 540 H Lactate Dehydrogenase Total Protein 4.4 L Albumin 2.2 L Arterial Blood Glucose Arterial Blood Ionized Calcium Urine WBC (Auto) Urine Creatinine Crossmatch 06/11/21 06/11/21 06/12/21 14:48 17:45 04:03 WBC 14.7 H RBC Hgb 8.9 L 9.4 L 9.2 L Hct 29.6 L 28.6 L 28.0 L MCV 77 L MCH 25 L MCHC RDW 21.2 H Plt Count 112 L Lymph % (Auto) 5.4 L [place] % (Auto) 8.6 H Lymph # (Auto) 0.8 L [place] # (Auto) 1.3 H Seg Neutrophils % 85.8 H Seg Neuts % (Manual) Lymphocytes % (Manual) Nucleated RBC % Seg Neutrophils # 12.6 H Seg Neutrophils # Man Lymphocytes # (Manual) PT INR APTT Fibrinogen ABG pH POC ABG pCO2 POC ABG pO2 ABG pO2 ABG HCO3 ABG Base Excess ABG Hemoglobin ABG Oxyhemoglobin ABG Sodium ABG Potassium ABG Chloride ABG Glucose Carboxyhemoglobin Sodium Potassium Chloride Carbon Dioxide BUN Creatinine Glucose POC Glucose Lactic Acid Calcium Phosphorus Magnesium Total Bilirubin AST ALT Lactate Dehydrogenase Total Protein Albumin Arterial Blood Glucose Arterial Blood Ionized Calcium Urine WBC (Auto) Urine Creatinine Crossmatch 06/12/21 06/12/21 06/12/21 04:03 04:03 04:50 WBC RBC Hgb Hct MCV MCH MCHC RDW Plt Count Lymph % (Auto) [place] % (Auto) Lymph # (Auto) [place] # (Auto) Seg Neutrophils % Seg Neuts % (Manual) Lymphocytes % (Manual) Nucleated RBC % Seg Neutrophils # Seg Neutrophils # Man Lymphocytes # (Manual) PT 24.1 H INR 2.10 H APTT Fibrinogen ABG pH POC ABG pCO2 POC ABG pO2 ABG pO2 127.8 H ABG HCO3 13.2 L ABG Base Excess -11.0 L ABG Hemoglobin 8.6 L ABG Oxyhemoglobin ABG Sodium ABG Potassium ABG Chloride ABG Glucose Carboxyhemoglobin Sodium 148 H Potassium Chloride 117.8 H Carbon Dioxide 17 L BUN 72 H Creatinine 4.6 H Glucose POC Glucose Lactic Acid Calcium 6.1 L Phosphorus 6.70 H Magnesium Total Bilirubin 3.40 H AST 1494 H ALT 512 H Lactate Dehydrogenase Total Protein 4.4 L Albumin 2.2 L Arterial Blood Glucose Arterial Blood Ionized Calcium Urine WBC (Auto) Urine Creatinine Crossmatch 06/13/21 06/13/21 06/13/21 00:16 04:00 08:11 WBC RBC 3.51 L Hgb 8.9 L Hct 26.2 L MCV 75 L MCH 25 L MCHC RDW 21.3 H Plt Count 96 L Lymph % (Auto) [place] % (Auto) Lymph # (Auto) [place] # (Auto) Seg Neutrophils % Seg Neuts % (Manual) Lymphocytes % (Manual) Nucleated RBC % Seg Neutrophils # Seg Neutrophils # Man Lymphocytes # (Manual) PT INR APTT Fibrinogen ABG pH POC ABG pCO2 22.8 L POC ABG pO2 115.7 H ABG pO2 ABG HCO3 ABG Base Excess ABG Hemoglobin 7.2 L ABG Oxyhemoglobin ABG Sodium ABG Potassium ABG Chloride 119.0 H ABG Glucose 102 H Carboxyhemoglobin Sodium Potassium Chloride Carbon Dioxide BUN Creatinine Glucose POC Glucose Lactic Acid Calcium Phosphorus Magnesium Total Bilirubin AST ALT Lactate Dehydrogenase Total Protein Albumin Arterial Blood Glucose 102 H Arterial Blood Ionized Calcium Urine WBC (Auto) Urine Creatinine 28.0 H Crossmatch 06/13/21 06/13/21 06/13/21 08:11 12:54 14:17 WBC RBC Hgb Hct MCV MCH MCHC RDW Plt Count Lymph % (Auto) [place] % (Auto) Lymph # (Auto) [place] # (Auto) Seg Neutrophils % Seg Neuts % (Manual) Lymphocytes % (Manual) Nucleated RBC % Seg Neutrophils # Seg Neutrophils # Man Lymphocytes # (Manual) PT 18.2 H INR 1.44 H APTT Fibrinogen ABG pH POC ABG pCO2 POC ABG pO2 ABG pO2 ABG HCO3 ABG Base Excess ABG Hemoglobin ABG Oxyhemoglobin ABG Sodium ABG Potassium ABG Chloride ABG Glucose Carboxyhemoglobin Sodium 147 H Potassium Chloride 117.2 H Carbon Dioxide 15 L BUN 96 H Creatinine 6.1 H Glucose 107 H POC Glucose 107 H Lactic Acid Calcium 6.2 L Phosphorus Magnesium Total Bilirubin AST ALT Lactate Dehydrogenase Total Protein Albumin Arterial Blood Glucose Arterial Blood Ionized Calcium Urine WBC (Auto) Urine Creatinine Crossmatch 06/14/21 06/14/21 06/14/21 04:35 08:45 08:45 WBC RBC Hgb 9.3 L Hct 27.6 L MCV 75 L MCH 25 L MCHC RDW 21.9 H Plt Count 137 L Lymph % (Auto) [place] % (Auto) Lymph # (Auto) [place] # (Auto) Seg Neutrophils % Seg Neuts % (Manual) Lymphocytes % (Manual) Nucleated RBC % Seg Neutrophils # Seg Neutrophils # Man Lymphocytes # (Manual) PT 16.8 H INR 1.30 H APTT Fibrinogen ABG pH 7.507 H POC ABG pCO2 15.9 L POC ABG pO2 121.2 H ABG pO2 ABG HCO3 ABG Base Excess ABG Hemoglobin 6.3 L ABG Oxyhemoglobin ABG Sodium ABG Potassium ABG Chloride 119.0 H ABG Glucose Carboxyhemoglobin Sodium Potassium Chloride Carbon Dioxide BUN Creatinine Glucose POC Glucose Lactic Acid Calcium Phosphorus Magnesium Total Bilirubin AST ALT Lactate Dehydrogenase Total Protein Albumin Arterial Blood Glucose Arterial Blood Ionized Calcium 3.5 L Urine WBC (Auto) Urine Creatinine Crossmatch 06/14/21 06/14/21 06/15/21 08:45 23:31 03:39 WBC RBC Hgb Hct MCV MCH MCHC RDW Plt Count Lymph % (Auto) [place] % (Auto) Lymph # (Auto) [place] # (Auto) Seg Neutrophils % Seg Neuts % (Manual) Lymphocytes % (Manual) Nucleated RBC % Seg Neutrophils # Seg Neutrophils # Man Lymphocytes # (Manual) PT INR APTT Fibrinogen ABG pH POC ABG pCO2 21.2 L POC ABG pO2 146.6 H ABG pO2 ABG HCO3 ABG Base Excess ABG Hemoglobin 8.0 L ABG Oxyhemoglobin ABG Sodium 145.2 H ABG Potassium ABG Chloride 120.0 H ABG Glucose 126 H Carboxyhemoglobin Sodium 147 H Potassium Chloride 115.5 H Carbon Dioxide 15 L BUN 107 H Creatinine 6.8 H Glucose POC Glucose 108 H Lactic Acid Calcium 6.7 L Phosphorus Magnesium Total Bilirubin 5.00 H AST 578 H ALT 298 H Lactate Dehydrogenase Total Protein 5.6 L D Albumin 2.3 L Arterial Blood Glucose 126 H Arterial Blood Ionized Calcium Urine WBC (Auto) Urine Creatinine Crossmatch 06/15/21 06/15/21 06/15/21 04:30 04:30 04:30 WBC 11.2 H RBC 3.05 L Hgb 7.5 L Hct 23.3 L MCV 76 L MCH 25 L MCHC RDW 23.1 H Plt Count 109 L Lymph % (Auto) [place] % (Auto) Lymph # (Auto) [place] # (Auto) Seg Neutrophils % Seg Neuts % (Manual) 90.0 H Lymphocytes % (Manual) 2.0 L Nucleated RBC % 1.0 H Seg Neutrophils # Seg Neutrophils # Man 10.1 H Lymphocytes # (Manual) 0.2 L PT 18.9 H INR 1.53 H APTT Fibrinogen ABG pH POC ABG pCO2 POC ABG pO2 ABG pO2 ABG HCO3 ABG Base Excess ABG Hemoglobin ABG Oxyhemoglobin ABG Sodium ABG Potassium ABG Chloride ABG Glucose Carboxyhemoglobin Sodium 147 H Potassium Chloride 116.5 H Carbon Dioxide 16 L BUN 121 H Creatinine 8.6 H Glucose 147 H POC Glucose Lactic Acid Calcium 6.5 L Phosphorus Magnesium Total Bilirubin 5.10 H AST 349 H ALT 214 H Lactate Dehydrogenase Total Protein 4.9 L Albumin 2.0 L Arterial Blood Glucose Arterial Blood Ionized Calcium Urine WBC (Auto) Urine Creatinine Crossmatch 06/15/21 05:14 WBC RBC Hgb Hct MCV MCH MCHC RDW Plt Count Lymph % (Auto) [place] % (Auto) Lymph # (Auto) [place] # (Auto) Seg Neutrophils % Seg Neuts % (Manual) Lymphocytes % (Manual) Nucleated RBC % Seg Neutrophils # Seg Neutrophils # Man Lymphocytes # (Manual) PT INR APTT Fibrinogen ABG pH POC ABG pCO2 POC ABG pO2 ABG pO2 ABG HCO3 ABG Base Excess ABG Hemoglobin ABG Oxyhemoglobin ABG Sodium ABG Potassium ABG Chloride ABG Glucose Carboxyhemoglobin Sodium Potassium Chloride Carbon Dioxide BUN Creatinine Glucose POC Glucose 125 H Lactic Acid Calcium Phosphorus Magnesium Total Bilirubin AST ALT Lactate Dehydrogenase Total Protein Albumin Arterial Blood Glucose Arterial Blood Ionized Calcium Urine WBC (Auto) Urine Creatinine Crossmatch Allied health notes reviewed: nursing
[2021-06-15] MEDS ORDERED: methylPREDNISolone Sod Suc 1,000 MG in SODIUM CHLORIDE 0.9% 250ML 250 ML IV SCH (10:00)
[2021-06-15] MEDS ORDERED: SODIUM BICARBONATE 325 MG TAB FEEDTUBE PRN (10:16)
[2021-06-15] MEDS ORDERED: LIPASE 10,500/PROTEASE 25,000/AMYLASE 43,750 (UNITS) DR CAP FEEDTUBE PRN (10:16)
[2021-06-15] MEDS ORDERED: SIMPLE SYRUP 15 ML FEEDTUBE PRN ×2 (10:16)
--- NOTE | 2021-06-15 10:17 | Progress Note ---
Assessment and Plan Assessment and plan: This is a 60-year-old female with no known past medical history who came in s/p cardiac arrest at home. Upon arrival to [facility], patient was found to have a hemoglobin of 3.0 possibly due to GIB, with acute metabolic encephalophy, acute respiratory failure, and PEG. Hospital Course to Date: 06/14/21- Patient remains intubated, off sedation. Open eyes spontaneously with +gag and cough, but does not follow any commands. Tachypnea and tachycardia noted upon assess, low dose PRN fentanyl ordered for CPOT greater than 3. Plan for possible HD, VAs Cath placed by [facility]. D/w GI, okay to start trickle feed and transition to IV protonix BID tomorrow. 06/15/21- Patient still intubated with no significant change in Neuro status, MRI result noted, pending Neuro recommendation. D/w Nephro pulse dose steriods added X3 days and plan for HD today. Drop in H&H today, no signs of active bleeding, VSS, will continue to trend H&H. Patient is tolerating trickle feeds, per GI to keep TF at trickle feed for now. Continue to monitor renal function and H&H, am labs ordered #Neuro: Acute encephalopathy - Hypoxic versus metabolic - 06/12 CT head showed ill-defined differentiation of joseph and white matter which could reflect global hypoxic ischemic injury - 06/14 MRI brain noted, please review report for detail - Pending Neuro recommendation - EEG pending - PRN Fentanyl added for CPOT goal greater than 3 - Neurology consulted, recs appreciated - Poor prognosis, family updated about findings #CV: S/p PEA arrest - ROSC achieved, s/p slow rewarming per protocol - SR to ST on the monitor - Normotensive, off pressors - Continue to monitor hydrodynamics #Resp: Acute hypoxic respiratory failure - Intubated on 06/09 - Vent setting: PRVC- 30%, 6, 14, 400 - AM ABG noted, d/w [facility] - PRN Fentanyl for Tachynea/CPOT greater than 3 - Continue daily ABGs - SBT per [facility] - Plan for extubation as mental status will allow #Transaminitis-likely secondary to shock versus alcohol abuse (unclear patient history) #Acute upper GI bleed -resolved #Acute blood loss anemia-resolved #Hemorrhagic shock requiring pressors -resolved - S/p 5 units of blood products - Endoscopy 06/10/21: Clipping of presumed location of bleed by GI - H&H stable, 9.3/27.6 today, will transfuse for hemoglobin less than 7 - s/p Rocephin, vancomycin and pressors - AST, ALT, T bili downtrending - Protonix gtt transitioned to IV push BID - Patient is tolerating trickle feeds - Patient to advance TF to goal once okayed by GI - Nutrition/Dietitian consulted for TF management - continue to trend H&H, am labs ordered #Acute kidney injury - Unknown baseline, creatinine up from 6.8--> 8.6 this am - 06/12 Renal ultrasound negative - Remains oliguric - D/w Nephro start - Nephrology following, recs appreciated - Plan for possible HD, VasCath placed by [facility] #Coagulopathy - will continue to trend INR - We will give vitamin K as needed #Endo: Hyperglycemia- resolved - Originally presented with hypoglycemia of 20 and required D50 x2 resulting in hyperglycemia - Continue BG check Q6hrs, if hyperglycemic consider SSI The high probability of a clinically significant, sudden or life threatening deterioration of the [neuro, pulmo, GI] system(s) required my full and direct attention, intervention and personal management. The aggregate critical care time was [60] minutes. This time is in addition to time spent performing reported procedures but includes the following: [x] Data Review and interpretation [x] Patient assessment and monitoring of vital signs [x] Documentation [x] Medication orders and management I saw and evaluated the patient. Discussed with the nurse practitioner and agree with their findings and plan as documented in this note. Disposition Plan: ICU Total Time Spent with Patient (Minutes): 60 History Interval history: Patient seen and examined, remains intubated, spontaneously open eyes but not follow any commands. Minimal oozing from Vascath site overnight but no significant events reported Hospitalist Physical - Constitutional Vitals: Temp Pulse Resp BP Pulse Ox 97.3 F L 112 H 30 H 133/87 98 06/15/21 07:31 06/15/21 09:00 06/15/21 09:00 06/15/21 09:00 06/15/21 08:50 General appearance: Present: no acute distress - EENT Eyes: Present: PERRL - Respiratory Respiratory effort: normal Respiratory: bilateral: diminished - Cardiovascular Rhythm: regular Heart Sounds: Present: S1 & S2 - Extremities Extremities: pulses intact, pulses symmetrical Extremity abnormal: edema - Peripheral Assessment Generalized Edema Type: Non-pitting Edema Degree: 1+ Capillary Refill: < 3 seconds Skin Temperature: Warm Peripheral Pulses: within normal limits - Abdominal General gastrointestinal: soft, non-tender, normal bowel sounds - Integumentary Integumentary: Present: warm, dry - Psychiatric Psychiatric: other (ANNELIESE) - Neurologic Neurologic: other (ANNELIESE) - Allied Health Allied health notes reviewed: nursing HEART Score - HEART Score EKG: Normal Age: 45-65 Troponin: Troponin T < 0.010 ng/mL (0.00-0.029) 06/09/21 03:27 - Critical Actions Critical Actions: 4-6 pts:12-16.6% risk of adverse cardiac event. Should be admitted Results - Labs CBC & Chem 7: 06/15/21 04:30 06/15/21 04:30 Labs: Laboratory Last Values WBC 11.2 K/mm3 (4.5-11.0) H 06/15/21 04:30 RBC 3.05 M/mm3 (3.65-5.03) L 06/15/21 04:30 Hgb 7.5 gm/dl (10.1-14.3) L 06/15/21 04:30 Hct 23.3 % (30.3-42.9) L 06/15/21 04:30 MCV 76 fl (79-97) L 06/15/21 04:30 MCH 25 pg (28-32) L 06/15/21 04:30 MCHC 32 % (30-34) 06/15/21 04:30 RDW 23.1 % (13.2-15.2) H 06/15/21 04:30 Plt Count 109 K/mm3 (140-440) L 06/15/21 04:30 Lymph % (Auto) 5.4 % (13.4-35.0) L 06/12/21 04:03 Garza % (Auto) Hook Puller 06/15/21 04:30 Eos % (Auto) Hook Puller 06/15/21 04:30 Baso % (Auto) 0.1 % (0.0-1.8) 06/12/21 04:03 Lymph # (Auto) 0.8 K/mm3 (1.2-5.4) L 06/12/21 04:03 Garza # (Auto) Hook Puller 06/15/21 04:30 Eos # (Auto) Hook Puller 06/15/21 04:30 Baso # (Auto) Hook Puller 06/15/21 04:30 Add Manual Diff Complete 06/15/21 04:30 Total Counted 100 06/15/21 04:30 Seg Neutrophils % Hook Puller 06/15/21 04:30 Seg Neuts % (Manual) 90.0 % (40.0-70.0) H 06/15/21 04:30 Band Neutrophils % 2.0 % 06/15/21 04:30 Lymphocytes % (Manual) 2.0 % (13.4-35.0) L 06/15/21 04:30 Reactive Lymphs % (Man) 1.0 % 06/15/21 04:30 Monocytes % (Manual) 5.0 % (0.0-7.3) 06/15/21 04:30 Nucleated RBC % 1.0 % (0.0-0.9) H 06/15/21 04:30 Seg Neutrophils # Hook Puller 06/15/21 04:30 Seg Neutrophils # Man 10.1 K/mm3 (1.8-7.7) H 06/15/21 04:30 Band Neutrophils # 0.2 K/mm3 06/15/21 04:30 Lymphocytes # (Manual) 0.2 K/mm3 (1.2-5.4) L 06/15/21 04:30 Abs React Lymphs (Man) 0.1 K/mm3 06/15/21 04:30 Monocytes # (Manual) 0.6 K/mm3 (0.0-0.8) 06/15/21 04:30 Eosinophils # (Manual) 0.0 K/mm3 (0.0-0.4) 06/15/21 04:30 Basophils # (Manual) 0.0 K/mm3 (0.0-0.1) 06/15/21 04:30 Metamyelocytes # 0.0 K/mm3 06/15/21 04:30 Myelocytes # 0.0 K/mm3 06/15/21 04:30 Promyelocytes # 0.0 K/mm3 06/15/21 04:30 Blast Cells # 0.0 K/mm3 06/15/21 04:30 WBC Morphology Not Reportable 06/15/21 04:30 Hypersegmented Neuts Not Reportable 06/15/21 04:30 Hyposegmented Neuts Not Reportable 06/15/21 04:30 Hypogranular Neuts Not Reportable 06/15/21 04:30 Smudge Cells Not Reportable 06/15/21 04:30 Toxic Granulation Not Reportable 06/15/21 04:30 Toxic Vacuolation Not Reportable 06/15/21 04:30 Dohle Bodies Not Reportable 06/15/21 04:30 Pelger-Huet Anomaly Not Reportable 06/15/21 04:30 Gui Rods Not Reportable 06/15/21 04:30 Platelet Estimate Consistent w auto 06/15/21 04:30 Clumped Platelets Not Reportable 06/15/21 04:30 Plt Clumps, EDTA Not Reportable 06/15/21 04:30 Large Platelets Not Reportable 06/15/21 04:30 Giant Platelets Not Reportable 06/15/21 04:30 Platelet Satelliting Not Reportable 06/15/21 04:30 Plt Morphology Comment Not Reportable 06/15/21 04:30 RBC Morphology Not Reportable 06/15/21 04:30 Dimorphic RBCs Not Reportable 06/15/21 04:30 Polychromasia Not Reportable 06/15/21 04:30 Hypochromasia 2+ 06/15/21 04:30 Poikilocytosis 1+ 06/15/21 04:30 Anisocytosis 2+ 06/15/21 04:30 Microcytosis 1+ 06/15/21 04:30 Macrocytosis Not Reportable 06/15/21 04:30 Spherocytes Not Reportable 06/15/21 04:30 Pappenheimer Bodies Not Reportable 06/15/21 04:30 Sickle Cells Not Reportable 06/15/21 04:30 Target Cells 1+ 06/15/21 04:30 Tear Drop Cells Not Reportable 06/15/21 04:30 Ovalocytes Not Reportable 06/15/21 04:30 Helmet Cells Not Reportable 06/15/21 04:30 [place] Bodies Not Reportable 06/15/21 04:30 [place] Rings Not Reportable 06/15/21 04:30 [place] Cells Not Reportable 06/15/21 04:30 Bite Cells Not Reportable 06/15/21 04:30 Crenated Cell Not Reportable 06/15/21 04:30 Elliptocytes Not Reportable 06/15/21 04:30 Acanthocytes (Spur) Not Reportable 06/15/21 04:30 Rouleaux Not Reportable 06/15/21 04:30 Hemoglobin C Crystals Not Reportable 06/15/21 04:30 Schistocytes Not Reportable 06/15/21 04:30 Malaria parasites Not Reportable 06/15/21 04:30 Narendra Bodies Not Reportable 06/15/21 04:30 Hem Pathologist Commnt No 06/15/21 04:30 PT 18.9 Sec. (12.2-14.9) H 06/15/21 04:30 INR 1.53 (0.87-1.13) H 06/15/21 04:30 APTT 52.6 Sec. (24.2-36.6) H 06/09/21 12:27 Fibrinogen 83 mg/dl (211-480) L* 06/09/21 12:27 ABG pH 7.419 (7.320-7.450) 06/15/21 03:39 POC ABG pCO2 21.2 mmHg (32.0-48.0) L 06/15/21 03:39 ABG pCO2 24.1 mm Hg 06/12/21 04:50 POC ABG pO2 146.6 mmHg (83-108) H 06/15/21 03:39 ABG pO2 127.8 mm Hg (80.0-90.0) H 06/12/21 04:50 POC ABG HCO3 13.4 06/15/21 03:39 ABG HCO3 13.2 mmol/L (20.0-26.0) L 06/12/21 04:50 ABG O2 Saturation 99.0 (0-100) 06/15/21 03:39 ABG O2 Content 12.0 (0.0-44) 06/12/21 04:50 POC ABG Base Excess -9.8 06/15/21 03:39 ABG Base Excess -11.0 mmol/L (-2.0-3.0) L 06/12/21 04:50 ABG Hemoglobin 8.0 (12.0-17.5) L 06/15/21 03:39 ABG Oxyhemoglobin 98.0 (94-98) 06/15/21 03:39 ABG Carboxyhemoglobin 1.4 % (0.0-5.0) 06/12/21 04:50 ABG Methemoglobin 0.3 (0.0-1.5) 06/15/21 03:39 ABG Sodium 145.2 mmol/L (136.0-145.0) H 06/15/21 03:39 ABG Potassium 3.9 mmol/L (3.40-4.50) 06/15/21 03:39 ABG Chloride 120.0 mmol/L (98-107) H 06/15/21 03:39 ABG Glucose 126 mg/dL (65-95) H 06/15/21 03:39 Oxyhemoglobin 96.6 % (95.0-99.0) 06/12/21 04:50 Carboxyhemoglobin 0.7 (0.5-1.5) 06/15/21 03:39 FiO2 30 % 06/12/21 04:50 FiO2 % 30.0 06/15/21 03:39 Sodium 147 mmol/L (137-145) H 06/15/21 04:30 Potassium 3.8 mmol/L (3.6-5.0) 06/15/21 04:30 Chloride 116.5 mmol/L (98-107) H 06/15/21 04:30 Carbon Dioxide 16 mmol/L (22-30) L 06/15/21 04:30 Anion Gap 18 mmol/L 06/15/21 04:30 BUN 121 mg/dL (7-17) H 06/15/21 04:30 Creatinine 8.6 mg/dL (0.6-1.2) H 06/15/21 04:30 Estimated GFR 6 ml/min 06/15/21 04:30 BUN/Creatinine Ratio 14 % 06/15/21 04:30 Glucose 147 mg/dL (65-100) H 06/15/21 04:30 POC Glucose 125 mg/dL (70-105) H 06/15/21 05:14 Lactic Acid 1.70 mmol/L (0.7-2.0) 06/11/21 12:12 Calcium 6.5 mg/dL (8.4-10.2) L 06/15/21 04:30 Phosphorus 6.70 mg/dL (2.5-4.5) H 06/12/21 04:03 Magnesium 1.70 mg/dL (1.7-2.3) 06/12/21 04:03 Total Bilirubin 5.10 mg/dL (0.1-1.2) H 06/15/21 04:30 AST 349 units/L (5-40) H 06/15/21 04:30 ALT 214 units/L (7-56) H 06/15/21 04:30 Alkaline Phosphatase 115 units/L (35-129) 06/15/21 04:30 Ammonia 32.0 umol/L (25-60) 06/11/21 14:48 Lactate Dehydrogenase 2208 units/L (91-180) H 06/09/21 11:44 Troponin T < 0.010 ng/mL (0.00-0.029) 06/09/21 03:27 Total Protein 4.9 g/dL (6.3-8.2) L 06/15/21 04:30 Albumin 2.0 g/dL (3.9-5) L 06/15/21 04:30 Albumin/Globulin Ratio 0.7 % 06/15/21 04:30 TSH 0.315 mlU/mL (0.270-4.200) 06/11/21 14:48 Arterial Blood Glucose 126 mg/dL (65-95) H 06/15/21 03:39 Arterial Blood Ionized Calcium 3.5 mg/dL (4.6-5.3) L 06/14/21 04:35 Urine Color Yellow (Yellow) 06/10/21 08:47 Urine Turbidity Cloudy (Clear) 06/10/21 08:47 Urine pH 5.0 (5.0-7.0) 06/10/21 08:47 Ur Specific [place] 1.016 (1.003-1.030) 06/10/21 08:47 Urine Protein 100 mg/dl mg/dL (Negative) 06/10/21 08:47 Urine Glucose (UA) 150 mg/dL (Negative) 06/10/21 08:47 Urine Ketones Neg mg/dL (Negative) 06/10/21 08:47 Urine Blood Lg (Negative) 06/10/21 08:47 Urine Nitrite Neg (Negative) 06/10/21 08:47 Urine Bilirubin Neg (Negative) 06/10/21 08:47 Urine Urobilinogen < 2.0 mg/dL (<2.0) 06/10/21 08:47 Ur Leukocyte Esterase Tr (Negative) 06/10/21 08:47 Urine WBC (Auto) 23.0 /HPF (0.0-6.0) H 06/10/21 08:47 Urine RBC (Auto) 67.0 /HPF (0.0-6.0) 06/10/21 08:47 U Epithel Cells (Auto) 5.0 /HPF (0-13.0) 06/10/21 08:47 Urine Bacteria (Auto) 1+ /HPF (Negative) 06/10/21 08:47 Ur Transition Epith Cell 2 /HPF 06/10/21 08:47 Hyaline Casts 1 /LPF 06/10/21 08:47 Urine Mucus Few /HPF 06/10/21 08:47 Urine Creatinine 28.0 mg/dL (0.1-20.0) H 06/13/21 00:16 Urine Sodium 109 mmol/L 06/13/21 00:16 Urine Opiates Screen Negative 06/14/21 10:00 Urine Methadone Screen Negative 06/14/21 10:00 Ur Barbiturates Screen Negative 06/14/21 10:00 Ur Phencyclidine Scrn Negative 06/14/21 10:00 Ur Amphetamines Screen Negative 06/14/21 10:00 U Benzodiazepines Scrn Positive 06/14/21 10:00 Urine Cocaine Screen Negative 06/14/21 10:00 U Marijuana (THC) Screen Positive 06/14/21 10:00 Drugs of Abuse Note Disclamer 06/14/21 10:00 Coronavirus (PCR) Negative (Negative) 06/09/21 13:12 Blood Type B POSITIVE 06/09/21 04:00 Antibody Screen Negative 06/09/21 04:00 Crossmatch See Detail 06/09/21 04:00 Microbiology: Microbiology 06/12/21 08:59 Peripheral/Venous Blood Culture - Preliminary NO GROWTH AFTER 72 HOURS 06/12/21 08:59 Peripheral/Venous Blood Culture - Preliminary NO GROWTH AFTER 72 HOURS 06/09/21 03:59 Peripheral/Venous Blood Culture - Final NO GROWTH AFTER 5 DAYS Esparza/IV: Voiding Method Indwelling Catheter Active Medications - Current Medications Current Medications: Generic Name Dose Route Start Last Admin Trade Name Freq PRN Reason Stop Dose Admin Lipase/Protease/Amylase 1 each 06/14/21 16:23 Lipase 10,500/Protease 25,000/Amylase 43,750 (Units) Dr Aponte FEEDTUBE PRN PRN For Clogged Feeding Tube Dextrose 50 ml 06/09/21 11:13 Dextrose 50% In Water (25gm) 50 Ml Syringe IV Q30MIN PRN Hypoglycemia Protocol Fentanyl 25 mcg 06/14/21 15:21 Fentanyl 100 Mcg/2 Ml Inj IV Q4HR PRN Pain, Moderate (4-6) Hydrophilic Ointment 1 applic 06/09/21 03:26 06/12/21 20:00 Lip Therapy Vaseline TP 1 applic Q2HR PRN Administration Dry Lips Sodium Chloride 100 mls @ 999 mls/hr 06/15/21 08:53 Nacl 0.9% IV BURKE PRN Hypotension Methylprednisolone Sodium 100 mls @ 200 mls/hr 06/16/21 10:00 Succinate 500 mg/ Sodium IV 06/17/21 10:29 Chloride Q24HR GABINO Methylprednisolone Sodium 250 mls @ 250 mls/hr 06/15/21 10:00 Succinate 1,000 mg/ Sodium IV 06/15/21 14:00 Chloride ONCE@1000 GABINO Multi-Ingred Cream/Lotion/Oil/Oint 1 applic 06/09/21 03:26 06/12/21 20:05 Mineral Oil/Petrolatum, White Ophth Oint 3.5 Gm OU 1 applic Q4HR PRN Administration Dry Eye(s) Pantoprazole Sodium 40 mg 06/15/21 22:00 Pantoprazole 40 Mg Inj IV BID GABINO Simple Syrup 15 ml 06/14/21 16:23 Simple Syrup 15 Ml FEEDTUBE PRN PRN Hypoglycemia Simple Syrup 30 ml 06/14/21 16:23 Simple Syrup 15 Ml FEEDTUBE PRN PRN Hypoglycemia Sodium Bicarbonate 325 mg 06/14/21 16:23 Sodium Bicarbonate 325 Mg Tab FEEDTUBE PRN PRN For Clogged Feeding Tube Sodium Chloride 10 ml 06/09/21 22:00 06/15/21 00:58 Sodium Chloride 0.9% 10 Ml Flush Syringe IV 10 ml BID GABINO Administration Sodium Chloride 10 ml 06/09/21 11:13 Sodium Chloride 0.9% 10 Ml Flush Syringe IV PRN PRN LINE FLUSH Nutrition/Malnutrition Assess - Dietary Evaluation Nutrition/Malnutrition Findings: Nutrition Notes Start: 06/11/21 15:21 Freq: Status: Active Protocol: Document 06/14/21 15:59 GB (Rec: 06/14/21 16:23 GB [email or web address]) Nutrition Notes Need for Assessment generated from: MD Order Initial or Follow up Reassessment Current Diagnosis Acute Kidney Injury, Respiratory Failure Other Pertinent Diagnosis metabolic encephalopathy, GI bleed, intubated Current Diet NPO, trickle feed TF Labs/Tests 06/14: Na 147, BUN 107, creatinine 6.8, Ca 6.7, Tbili 5, AST 578, ALT 298 Pertinent Medications reviewed Height 5 ft 3 in Weight 57.107 kg [place] Body Weight (kg) 52.27 BMI 22.3 Weight change and time frame no changes recorded Weight Status Appropriate Subjective/Other Information intubation continues, currently sedated, GI bleed, NPO x 4days 06/14: per gastroentologist note, okay to start trial of TF. Other notes: off sedation , prepped for possible HD Percent of energy/protein needs met: currently 0% with NPO 06/14: TF Nepro goal rate of GI Symptoms Other Food Allergy No Current % PO Other Minimum of two criteria No #1 Nutrition Diagnosis Inadequate energy intake Comments: 06/13: Intubation continues, NPOx4 days 06/14: TF trial, trickle feeds started. Formula Nepro start rate 10ml/hr (meets 30% or greater estimated energy needs ) Etiology Intubated, GI Bleed As Evidenced by Signs and Symptoms NPO, intubation Diagnosis Progress(for reassessment Continues documentation) Is patient on ventilator? Yes Is Patient Ambulatory and/or Out of Bed No REE-([facility]-confined to bed) 1343.208 Kcal/Kg value to use for calculation 25 Approximate Energy Requirements Using 1428 kcal/Kg Calculation Used for Recommendations Kcal/kg Additional Notes Protein 1-1.2 g/kg @ 57k- 68g Fluids: 1 ml/kcal or per Nutrition Intervention Change Diet Order: Continue NPO, if extubated begin Clear liquids (no red colored clears) 06/14: Begin TF: Nepro @ 33ml/ hr: Start rate 10ml/hr advance 5ml/8hr or per tolerance to goal. Flush: 25ml/hr Nutrition Support: Nepro @ 33ml/hr: Start rate 10ml/hr advance 5ml/8hr or per tolerance to goal. Flush: 25ml/hr Kcal 1,425 Protein (gm) 64 Fat (gm) 76 Fluid (mL) 575 Goal #1 Extubate and advance diet to clear liquids 06/14: not met, continues Goal #2 If intubation continues, begin TPN post central line placement 06/14: changed, okay to start TF trial Goal #3 Tolerate TF Nepro at start rate of 10ml/hr Goal #4 Tolerate TF Nepro at goal rate of 33ml/hr Follow-Up By: 06/18/21 Additional Comments f/u: TF tolerance or extubated and diet advanced clear liquids
[2021-06-15] MEDS: fentaNYL 100 MCG/2 ML INJ IV PRN (10:31)
[2021-06-15 11:50] LABS: Hepatitis C Virus Antibody Non-Reactive (NonReactive)
[2021-06-15 11:54] LABS: Hepatitis B Surface Antigen Nonreactive (Negative)
--- NOTE | 2021-06-15 15:43 | Gastroenterology Progress Note ---
Assessment and Plan UGI bleed - cont PPI BID dosing, tolerating trickle tube feeds, cont and will follow. abnormal liver enzymes - improving/stable. monitor levels Subjective Date of service: 06/15/21 Principal diagnosis: UGI bleed Interval history: pt receiving dialysis at bedside. noted drop in H/H but no signs of overt bleeding overnight/today. Objective - Exam Narrative Exam: Gen: intubated, opens eyes/unresponsive otherwise abd: soft, nd - Constitutional Vitals: Temp Pulse Resp BP Pulse Ox 99.0 F 109 H 32 H 113/73 96 06/15/21 12:56 06/15/21 13:40 06/15/21 13:40 06/15/21 13:40 06/15/21 13:40 - Labs CBC & Chem 7: 06/15/21 04:30 06/15/21 04:30 Labs: Laboratory Results - last 24 hr 06/14/21 06/14/21 06/15/21 17:44 23:31 03:39 WBC RBC Hgb Hct MCV MCH MCHC RDW Plt Count [place] % (Auto) Eos % (Auto) [place] # (Auto) Eos # (Auto) Baso # (Auto) Add Manual Diff Total Counted Seg Neutrophils % Seg Neuts % (Manual) Band Neutrophils % Lymphocytes % (Manual) Reactive Lymphs % (Man) Monocytes % (Manual) Nucleated RBC % Seg Neutrophils # Seg Neutrophils # Man Band Neutrophils # Lymphocytes # (Manual) Abs React Lymphs (Man) Monocytes # (Manual) Eosinophils # (Manual) Basophils # (Manual) Metamyelocytes # Myelocytes # Promyelocytes # Blast Cells # WBC Morphology Hypersegmented Neuts Hyposegmented Neuts Hypogranular Neuts Smudge Cells Toxic Granulation Toxic Vacuolation Dohle Bodies Pelger-Huet Anomaly Gui Rods Platelet Estimate Clumped Platelets Plt Clumps, EDTA Large Platelets Giant Platelets Platelet Satelliting Plt Morphology Comment RBC Morphology Dimorphic RBCs Polychromasia Hypochromasia Poikilocytosis Anisocytosis Microcytosis Macrocytosis Spherocytes Pappenheimer Bodies Sickle Cells Target Cells Tear Drop Cells Ovalocytes Helmet Cells Martinez-Castella Bodies [place] Rings [place] Cells Bite Cells Crenated Cell Elliptocytes Acanthocytes (Spur) Rouleaux Hemoglobin C Crystals Schistocytes Malaria parasites Narendra Bodies Hem Pathologist Commnt PT INR ABG pH 7.419 POC ABG pCO2 21.2 L POC ABG pO2 146.6 H POC ABG HCO3 13.4 ABG O2 Saturation 99.0 POC ABG Base Excess -9.8 ABG Hemoglobin 8.0 L ABG Oxyhemoglobin 98.0 ABG Methemoglobin 0.3 ABG Sodium 145.2 H ABG Potassium 3.9 ABG Chloride 120.0 H ABG Glucose 126 H Carboxyhemoglobin 0.7 FiO2 % 30.0 Sodium Potassium Chloride Carbon Dioxide Anion Gap BUN Creatinine Estimated GFR BUN/Creatinine Ratio Glucose POC Glucose 100 108 H Calcium Total Bilirubin AST ALT Alkaline Phosphatase Total Protein Albumin Albumin/Globulin Ratio Arterial Blood Glucose 126 H Hepatitis A IgM Ab Hep Bs Antigen Hep B Core IgM Ab Hepatitis C Antibody 06/15/21 06/15/21 06/15/21 04:30 04:30 04:30 WBC 11.2 H RBC 3.05 L Hgb 7.5 L Hct 23.3 L MCV 76 L MCH 25 L MCHC 32 RDW 23.1 H Plt Count 109 L [place] % (Auto) Microsoft Bi Architect Eos % (Auto) Microsoft Bi Architect [place] # (Auto) Microsoft Bi Architect Eos # (Auto) Microsoft Bi Architect Baso # (Auto) Microsoft Bi Architect Add Manual Diff Complete Total Counted 100 Seg Neutrophils % Microsoft Bi Architect Seg Neuts % (Manual) 90.0 H Band Neutrophils % 2.0 Lymphocytes % (Manual) 2.0 L Reactive Lymphs % (Man) 1.0 Monocytes % (Manual) 5.0 Nucleated RBC % 1.0 H Seg Neutrophils # Microsoft Bi Architect Seg Neutrophils # Man 10.1 H Band Neutrophils # 0.2 Lymphocytes # (Manual) 0.2 L Abs React Lymphs (Man) 0.1 Monocytes # (Manual) 0.6 Eosinophils # (Manual) 0.0 Basophils # (Manual) 0.0 Metamyelocytes # 0.0 Myelocytes # 0.0 Promyelocytes # 0.0 Blast Cells # 0.0 WBC Morphology Not Reportable Hypersegmented Neuts Not Reportable Hyposegmented Neuts Not Reportable Hypogranular Neuts Not Reportable Smudge Cells Not Reportable Toxic Granulation Not Reportable Toxic Vacuolation Not Reportable Dohle Bodies Not Reportable Pelger-Huet Anomaly Not Reportable Gui Rods Not Reportable Platelet Estimate Consistent w auto Clumped Platelets Not Reportable Plt Clumps, EDTA Not Reportable Large Platelets Not Reportable Giant Platelets Not Reportable Platelet Satelliting Not Reportable Plt Morphology Comment Not Reportable RBC Morphology Not Reportable Dimorphic RBCs Not Reportable Polychromasia Not Reportable Hypochromasia 2+ Poikilocytosis 1+ Anisocytosis 2+ Microcytosis 1+ Macrocytosis Not Reportable Spherocytes Not Reportable Pappenheimer Bodies Not Reportable Sickle Cells Not Reportable Target Cells 1+ Tear Drop Cells Not Reportable Ovalocytes Not Reportable Helmet Cells Not Reportable Martinez-Castella Bodies Not Reportable [place] Rings Not Reportable Anel Cells Not Reportable Bite Cells Not Reportable Crenated Cell Not Reportable Elliptocytes Not Reportable Acanthocytes (Spur) Not Reportable Rouleaux Not Reportable Hemoglobin C Crystals Not Reportable Schistocytes Not Reportable Malaria parasites Not Reportable Narendra Bodies Not Reportable Hem Pathologist Commnt No PT 18.9 H INR 1.53 H ABG pH POC ABG pCO2 POC ABG pO2 POC ABG HCO3 ABG O2 Saturation POC ABG Base Excess ABG Hemoglobin ABG Oxyhemoglobin ABG Methemoglobin ABG Sodium ABG Potassium ABG Chloride ABG Glucose Carboxyhemoglobin FiO2 % Sodium 147 H Potassium 3.8 Chloride 116.5 H Carbon Dioxide 16 L Anion Gap 18 BUN 121 H Creatinine 8.6 H Estimated GFR 6 BUN/Creatinine Ratio 14 Glucose 147 H POC Glucose Calcium 6.5 L Total Bilirubin 5.10 H AST 349 H ALT 214 H Alkaline Phosphatase 115 Total Protein 4.9 L Albumin 2.0 L Albumin/Globulin Ratio 0.7 Arterial Blood Glucose Hepatitis A IgM Ab Hep Bs Antigen Hep B Core IgM Ab Hepatitis C Antibody 06/15/21 06/15/21 06/15/21 05:14 09:55 11:38 WBC RBC Hgb Hct MCV MCH MCHC RDW Plt Count [place] % (Auto) Eos % (Auto) [place] # (Auto) Eos # (Auto) Baso # (Auto) Add Manual Diff Total Counted Seg Neutrophils % Seg Neuts % (Manual) Band Neutrophils % Lymphocytes % (Manual) Reactive Lymphs % (Man) Monocytes % (Manual) Nucleated RBC % Seg Neutrophils # Seg Neutrophils # Man Band Neutrophils # Lymphocytes # (Manual) Abs React Lymphs (Man) Monocytes # (Manual) Eosinophils # (Manual) Basophils # (Manual) Metamyelocytes # Myelocytes # Promyelocytes # Blast Cells # WBC Morphology Hypersegmented Neuts Hyposegmented Neuts Hypogranular Neuts Smudge Cells Toxic Granulation Toxic Vacuolation Dohle Bodies Pelger-Huet Anomaly Gui Rods Platelet Estimate Clumped Platelets Plt Clumps, EDTA Large Platelets Giant Platelets Platelet Satelliting Plt Morphology Comment RBC Morphology Dimorphic RBCs Polychromasia Hypochromasia Poikilocytosis Anisocytosis Microcytosis Macrocytosis Spherocytes Pappenheimer Bodies Sickle Cells Target Cells Tear Drop Cells Ovalocytes Helmet Cells Martinez-Castella Bodies [place] Rings [place] Cells Bite Cells Crenated Cell Elliptocytes Acanthocytes (Spur) Rouleaux Hemoglobin C Crystals Schistocytes Malaria parasites Narendra Bodies Hem Pathologist Commnt PT INR ABG pH POC ABG pCO2 POC ABG pO2 POC ABG HCO3 ABG O2 Saturation POC ABG Base Excess ABG Hemoglobin ABG Oxyhemoglobin ABG Methemoglobin ABG Sodium ABG Potassium ABG Chloride ABG Glucose Carboxyhemoglobin FiO2 % Sodium Potassium Chloride Carbon Dioxide Anion Gap BUN Creatinine Estimated GFR BUN/Creatinine Ratio Glucose POC Glucose 125 H 160 H Calcium Total Bilirubin AST ALT Alkaline Phosphatase Total Protein Albumin Albumin/Globulin Ratio Arterial Blood Glucose Hepatitis A IgM Ab Non-reactive Hep Bs Antigen Nonreactive Hep B Core IgM Ab Non-reactive Hepatitis C Antibody Non-reactive
[2021-06-15] MEDS: PANTOPRAZOLE 40 MG INJ IV SCH (21:51)
--- NOTE | 2021-06-16 05:37 | XRay Report ---
CHEST 1 VIEW INDICATION / CLINICAL INFORMATION: follow up respiratory failure. FINDINGS: SUPPORT DEVICES: No significant change in position. HEART / MEDIASTINUM: The cardiomediastinal silhouette has not significantly changed in the interim. LUNGS / PLEURA: No change in ill-defined airspace disease when compared to yesterday's exam. No pneum othorax. Signer Name: Howard Donovan MD Signed: 06/16/2021 5:33 AM Workstation Name: [id number]
[2021-06-16 06:48] LABS: Hematocrit 25.7 % (30.3-42.9); Hemoglobin 8.6 gm/dl (10.1-14.3); Mean Corpuscular HGB Conc 33 % (30-34); Mean Corpuscular Volume 75 fl (79-97); Platelet Count 121 K/mm3 (140-440); Red Blood Count 3.42 M/mm3 (3.65-5.03)
[2021-06-16 06:49] LABS: Red Cell Distribution Width 22.6 % (13.2-15.2)
[2021-06-16 07:18] LABS: Albumin 2.4 g/dL (3.9-5); Calcium 7.4 mg/dL (8.4-10.2)
--- NOTE | 2021-06-16 08:42 | Progress Note ---
Assessment and Plan Assessment and plan: 06/16/2021: GI signed off. Will continue protonix BID. Stable hemoglobin. Patient tolerated HD yesterday and will have another session today. #Acute upper GI bleed -resolved #Acute blood loss anemia-resolved #Hemorrhagic shock requiring pressors -resolved -s/p Rocephin, vancomycin and pressors -hemoglobin 8.6 today, will transfuse for hemoglobin less than 7 -received 5 units PRBCs total -continue Protonix IV BID -Endoscopy 06/10/21: Clipping of presumed location of bleed by GI #Acute encephalopathy -Hypoxic versus metabolic -Neurology consulted, will look at MRI to determine next steps -CT head showed ill-defined differentiation of joseph and white matter which could reflect global hypoxic ischemic injury -MRI showed subtle cortical signal abnormalities in the posterior cerebral hemispheres -EEG pending #Acute kidney injury -Unknown baseline, creatinine 6.6 -Renal ultrasound negative -femoral vasc cath for access -HD yesterday, another session today; continue with HD MWF per Nephrology -continue pulse dose steroids -Nephrology following, recs appreciated #PEA arrest -ROSC achieved #Anion gap metabolic acidosis #Lactic acidosis -Resolved -Likely secondary to PEA arrest and upper GI bleed #Coagulopathy -will continue to trend INR -We will give vitamin K as needed #Elevated liver enzymes -AST, ALT, T bili downtrending -likely secondary to shock -will continue to monitor #Acute hypoxic respiratory failure -Currently intubated, Pulmonary managing -vent settings -Plan for extubation as mental status will allow #Nutrition- continue TF @10cc/hr #CODE STATUS - Full Code Disposition Plan: Continue medical management Total Time Spent with Patient (Minutes): 60 minutes History Interval history: No acute events. Patient intubated. Tolerated HD yesterday. Family updated about status. Hospitalist Physical - Physical exam Narrative exam: GENERAL: Elderly woman. Intubated. HEENT: ETT and NG tube in place. NECK: Right IJ CHEST/LUNGS: Coarse breath sounds bilaterally. HEART/CARDIOVASCULAR: RRR. No murmur, rubs or gallops appreciated. ABDOMEN: +BS. NT/ND. NEURO: Unable to assess. EXTREMITIES: No cyanosis, clubbing or edema. PSYCH: Unable to assess - Constitutional Vitals: Temp Pulse Resp BP Pulse Ox 97.9 F 89 15 145/97 99 06/16/21 04:00 06/16/21 07:24 06/16/21 06:01 06/16/21 07:24 06/16/21 07:24 General appearance: Present: no acute distress - Allied Health Allied health notes reviewed: nursing HEART Score - HEART Score EKG: Normal Age: 45-65 Troponin: Troponin T < 0.010 ng/mL (0.00-0.029) 06/09/21 03:27 - Critical Actions Critical Actions: 4-6 pts:12-16.6% risk of adverse cardiac event. Should be admitted Results - Labs CBC & Chem 7: 06/16/21 06:15 06/16/21 06:15 Labs: Laboratory Last Values WBC 12.2 K/mm3 (4.5-11.0) H 06/16/21 06:15 RBC 3.42 M/mm3 (3.65-5.03) L 06/16/21 06:15 Hgb 8.6 gm/dl (10.1-14.3) L 06/16/21 06:15 Hct 25.7 % (30.3-42.9) L 06/16/21 06:15 MCV 75 fl (79-97) L 06/16/21 06:15 MCH 25 pg (28-32) L 06/16/21 06:15 MCHC 33 % (30-34) 06/16/21 06:15 RDW 22.6 % (13.2-15.2) H 06/16/21 06:15 Plt Count 121 K/mm3 (140-440) L 06/16/21 06:15 Lymph % (Auto) 5.4 % (13.4-35.0) L 06/12/21 04:03 [place] % (Auto) Rail Signal Mechanic 06/15/21 04:30 Eos % (Auto) Rail Signal Mechanic 06/15/21 04:30 Baso % (Auto) 0.1 % (0.0-1.8) 06/12/21 04:03 Lymph # (Auto) 0.8 K/mm3 (1.2-5.4) L 06/12/21 04:03 [place] # (Auto) Rail Signal Mechanic 06/15/21 04:30 Eos # (Auto) Rail Signal Mechanic 06/15/21 04:30 Baso # (Auto) Rail Signal Mechanic 06/15/21 04:30 Add Manual Diff Complete 06/15/21 04:30 Total Counted 100 06/15/21 04:30 Seg Neutrophils % Rail Signal Mechanic 06/15/21 04:30 Seg Neuts % (Manual) 90.0 % (40.0-70.0) H 06/15/21 04:30 Band Neutrophils % 2.0 % 06/15/21 04:30 Lymphocytes % (Manual) 2.0 % (13.4-35.0) L 06/15/21 04:30 Reactive Lymphs % (Man) 1.0 % 06/15/21 04:30 Monocytes % (Manual) 5.0 % (0.0-7.3) 06/15/21 04:30 Nucleated RBC % 1.0 % (0.0-0.9) H 06/15/21 04:30 Seg Neutrophils # Rail Signal Mechanic 06/15/21 04:30 Seg Neutrophils # Man 10.1 K/mm3 (1.8-7.7) H 06/15/21 04:30 Band Neutrophils # 0.2 K/mm3 06/15/21 04:30 Lymphocytes # (Manual) 0.2 K/mm3 (1.2-5.4) L 06/15/21 04:30 Abs React Lymphs (Man) 0.1 K/mm3 06/15/21 04:30 Monocytes # (Manual) 0.6 K/mm3 (0.0-0.8) 06/15/21 04:30 Eosinophils # (Manual) 0.0 K/mm3 (0.0-0.4) 06/15/21 04:30 Basophils # (Manual) 0.0 K/mm3 (0.0-0.1) 06/15/21 04:30 Metamyelocytes # 0.0 K/mm3 06/15/21 04:30 Myelocytes # 0.0 K/mm3 06/15/21 04:30 Promyelocytes # 0.0 K/mm3 06/15/21 04:30 Blast Cells # 0.0 K/mm3 06/15/21 04:30 WBC Morphology Not Reportable 06/15/21 04:30 Hypersegmented Neuts Not Reportable 06/15/21 04:30 Hyposegmented Neuts Not Reportable 06/15/21 04:30 Hypogranular Neuts Not Reportable 06/15/21 04:30 Smudge Cells Not Reportable 06/15/21 04:30 Toxic Granulation Not Reportable 06/15/21 04:30 Toxic Vacuolation Not Reportable 06/15/21 04:30 Dohle Bodies Not Reportable 06/15/21 04:30 Pelger-Huet Anomaly Not Reportable 06/15/21 04:30 Gui Rods Not Reportable 06/15/21 04:30 Platelet Estimate Consistent w auto 06/15/21 04:30 Clumped Platelets Not Reportable 06/15/21 04:30 Plt Clumps, EDTA Not Reportable 06/15/21 04:30 Large Platelets Not Reportable 06/15/21 04:30 Giant Platelets Not Reportable 06/15/21 04:30 Platelet Satelliting Not Reportable 06/15/21 04:30 Plt Morphology Comment Not Reportable 06/15/21 04:30 RBC Morphology Not Reportable 06/15/21 04:30 Dimorphic RBCs Not Reportable 06/15/21 04:30 Polychromasia Not Reportable 06/15/21 04:30 Hypochromasia 2+ 06/15/21 04:30 Poikilocytosis 1+ 06/15/21 04:30 Anisocytosis 2+ 06/15/21 04:30 Microcytosis 1+ 06/15/21 04:30 Macrocytosis Not Reportable 06/15/21 04:30 Spherocytes Not Reportable 06/15/21 04:30 Pappenheimer Bodies Not Reportable 06/15/21 04:30 Sickle Cells Not Reportable 06/15/21 04:30 Target Cells 1+ 06/15/21 04:30 Tear Drop Cells Not Reportable 06/15/21 04:30 Ovalocytes Not Reportable 06/15/21 04:30 Helmet Cells Not Reportable 06/15/21 04:30 Martinez-Toppers Bodies Not Reportable 06/15/21 04:30 [place] Rings Not Reportable 06/15/21 04:30 Anel Cells Not Reportable 06/15/21 04:30 Bite Cells Not Reportable 06/15/21 04:30 Crenated Cell Not Reportable 06/15/21 04:30 Elliptocytes Not Reportable 06/15/21 04:30 Acanthocytes (Spur) Not Reportable 06/15/21 04:30 Rouleaux Not Reportable 06/15/21 04:30 Hemoglobin C Crystals Not Reportable 06/15/21 04:30 Schistocytes Not Reportable 06/15/21 04:30 Malaria parasites Not Reportable 06/15/21 04:30 Narendra Bodies Not Reportable 06/15/21 04:30 Hem Pathologist Commnt No 06/15/21 04:30 PT 18.9 Sec. (12.2-14.9) H 06/15/21 04:30 INR 1.53 (0.87-1.13) H 06/15/21 04:30 APTT 52.6 Sec. (24.2-36.6) H 06/09/21 12:27 Fibrinogen 83 mg/dl (211-480) L* 06/09/21 12:27 ABG pH 7.419 (7.320-7.450) 06/15/21 03:39 POC ABG pCO2 21.2 mmHg (32.0-48.0) L 06/15/21 03:39 ABG pCO2 24.1 mm Hg 06/12/21 04:50 POC ABG pO2 146.6 mmHg (83-108) H 06/15/21 03:39 ABG pO2 127.8 mm Hg (80.0-90.0) H 06/12/21 04:50 POC ABG HCO3 13.4 06/15/21 03:39 ABG HCO3 13.2 mmol/L (20.0-26.0) L 06/12/21 04:50 ABG O2 Saturation 99.0 (0-100) 06/15/21 03:39 ABG O2 Content 12.0 (0.0-44) 06/12/21 04:50 POC ABG Base Excess -9.8 06/15/21 03:39 ABG Base Excess -11.0 mmol/L (-2.0-3.0) L 06/12/21 04:50 ABG Hemoglobin 8.0 (12.0-17.5) L 06/15/21 03:39 ABG Oxyhemoglobin 98.0 (94-98) 06/15/21 03:39 ABG Carboxyhemoglobin 1.4 % (0.0-5.0) 06/12/21 04:50 ABG Methemoglobin 0.3 (0.0-1.5) 06/15/21 03:39 ABG Sodium 145.2 mmol/L (136.0-145.0) H 06/15/21 03:39 ABG Potassium 3.9 mmol/L (3.40-4.50) 06/15/21 03:39 ABG Chloride 120.0 mmol/L (98-107) H 06/15/21 03:39 ABG Glucose 126 mg/dL (65-95) H 06/15/21 03:39 Oxyhemoglobin 96.6 % (95.0-99.0) 06/12/21 04:50 Carboxyhemoglobin 0.7 (0.5-1.5) 06/15/21 03:39 FiO2 30 % 06/12/21 04:50 FiO2 % 30.0 06/15/21 03:39 Sodium 147 mmol/L (137-145) H 06/16/21 06:15 Potassium 3.7 mmol/L (3.6-5.0) 06/16/21 06:15 Chloride 108.3 mmol/L (98-107) H 06/16/21 06:15 Carbon Dioxide 15 mmol/L (22-30) L 06/16/21 06:15 Anion Gap 27 mmol/L 06/16/21 06:15 BUN 82 mg/dL (7-17) H 06/16/21 06:15 Creatinine 6.6 mg/dL (0.6-1.2) H 06/16/21 06:15 Estimated GFR 8 ml/min 06/16/21 06:15 BUN/Creatinine Ratio 12 % 06/16/21 06:15 Glucose 178 mg/dL (65-100) H 06/16/21 06:15 POC Glucose 136 mg/dL (70-105) H 06/16/21 05:47 Lactic Acid 1.70 mmol/L (0.7-2.0) 06/11/21 12:12 Calcium 7.4 mg/dL (8.4-10.2) L 06/16/21 06:15 Phosphorus 6.70 mg/dL (2.5-4.5) H 06/12/21 04:03 Magnesium 1.70 mg/dL (1.7-2.3) 06/12/21 04:03 Total Bilirubin 5.30 mg/dL (0.1-1.2) H 06/16/21 06:15 AST 306 units/L (5-40) H 06/16/21 06:15 ALT 201 units/L (7-56) H 06/16/21 06:15 Alkaline Phosphatase 195 units/L (35-129) H 06/16/21 06:15 Ammonia 32.0 umol/L (25-60) 06/11/21 14:48 Lactate Dehydrogenase 2208 units/L (91-180) H 06/09/21 11:44 Troponin T < 0.010 ng/mL (0.00-0.029) 06/09/21 03:27 Total Protein 5.9 g/dL (6.3-8.2) L D 06/16/21 06:15 Albumin 2.4 g/dL (3.9-5) L 06/16/21 06:15 Albumin/Globulin Ratio 0.7 % 06/16/21 06:15 TSH 0.315 mlU/mL (0.270-4.200) 06/11/21 14:48 Arterial Blood Glucose 126 mg/dL (65-95) H 06/15/21 03:39 Arterial Blood Ionized Calcium 3.5 mg/dL (4.6-5.3) L 06/14/21 04:35 Urine Color Yellow (Yellow) 06/10/21 08:47 Urine Turbidity Cloudy (Clear) 06/10/21 08:47 Urine pH 5.0 (5.0-7.0) 06/10/21 08:47 Ur Specific Russell 1.016 (1.003-1.030) 06/10/21 08:47 Urine Protein 100 mg/dl mg/dL (Negative) 06/10/21 08:47 Urine Glucose (UA) 150 mg/dL (Negative) 06/10/21 08:47 Urine Ketones Neg mg/dL (Negative) 06/10/21 08:47 Urine Blood Lg (Negative) 06/10/21 08:47 Urine Nitrite Neg (Negative) 06/10/21 08:47 Urine Bilirubin Neg (Negative) 06/10/21 08:47 Urine Urobilinogen < 2.0 mg/dL (<2.0) 06/10/21 08:47 Ur Leukocyte Esterase Tr (Negative) 06/10/21 08:47 Urine WBC (Auto) 23.0 /HPF (0.0-6.0) H 06/10/21 08:47 Urine RBC (Auto) 67.0 /HPF (0.0-6.0) 06/10/21 08:47 U Epithel Cells (Auto) 5.0 /HPF (0-13.0) 06/10/21 08:47 Urine Bacteria (Auto) 1+ /HPF (Negative) 06/10/21 08:47 Ur Transition Epith Cell 2 /HPF 06/10/21 08:47 Hyaline Casts 1 /LPF 06/10/21 08:47 Urine Mucus Few /HPF 06/10/21 08:47 Urine Creatinine 28.0 mg/dL (0.1-20.0) H 06/13/21 00:16 Urine Sodium 109 mmol/L 06/13/21 00:16 Urine Opiates Screen Negative 06/14/21 10:00 Urine Methadone Screen Negative 06/14/21 10:00 Ur Barbiturates Screen Negative 06/14/21 10:00 Ur Phencyclidine Scrn Negative 06/14/21 10:00 Ur Amphetamines Screen Negative 06/14/21 10:00 U Benzodiazepines Scrn Positive 06/14/21 10:00 Urine Cocaine Screen Negative 06/14/21 10:00 U Marijuana (THC) Screen Positive 06/14/21 10:00 Drugs of Abuse Note Disclamer 06/14/21 10:00 Coronavirus (PCR) Negative (Negative) 06/09/21 13:12 Hepatitis A IgM Ab Non-reactive (NonReactive) 06/15/21 09:55 Hep Bs Antigen Nonreactive (Negative) 06/15/21 09:55 Hep B Core IgM Ab Non-reactive (NonReactive) 06/15/21 09:55 Hepatitis C Antibody Non-reactive (NonReactive) 06/15/21 09:55 Blood Type B POSITIVE 06/09/21 04:00 Antibody Screen Negative 06/09/21 04:00 Crossmatch See Detail 06/09/21 04:00 Microbiology: Microbiology 06/12/21 08:59 Peripheral/Venous Blood Culture - Preliminary NO GROWTH AFTER 72 HOURS 06/12/21 08:59 Peripheral/Venous Blood Culture - Preliminary NO GROWTH AFTER 72 HOURS Esparza/IV: Voiding Method Indwelling Catheter Active Medications - Current Medications Current Medications: Generic Name Dose Route Start Last Admin Trade Name Freq PRN Reason Stop Dose Admin Lipase/Protease/Amylase 1 each 06/14/21 16:23 Lipase 10,500/Protease 25,000/Amylase 43,750 (Units) Dr Aponte FEEDTUBE PRN PRN For Clogged Feeding Tube Dextrose 50 ml 06/09/21 11:13 Dextrose 50% In Water (25gm) 50 Ml Syringe IV Q30MIN PRN Hypoglycemia Protocol Fentanyl 25 mcg 06/14/21 15:21 06/15/21 10:31 Fentanyl 100 Mcg/2 Ml Inj IV 25 mcg Q4HR PRN Administration Pain, Moderate (4-6) Hydrophilic Ointment 1 applic 06/09/21 03:26 06/12/21 20:00 Lip Therapy Vaseline TP 1 applic Q2HR PRN Administration Dry Lips Sodium Chloride 100 mls @ 999 mls/hr 06/15/21 08:53 Nacl 0.9% IV BURKE PRN Hypotension Methylprednisolone Sodium 100 mls @ 200 mls/hr 06/16/21 10:00 Succinate 500 mg/ Sodium IV 06/17/21 10:29 Chloride Q24HR GABINO Multi-Ingred Cream/Lotion/Oil/Oint 1 applic 06/09/21 03:26 06/12/21 20:05 Mineral Oil/Petrolatum, White Ophth Oint 3.5 Gm OU 1 applic Q4HR PRN Administration Dry Eye(s) Pantoprazole Sodium 40 mg 06/15/21 22:00 06/15/21 21:51 Pantoprazole 40 Mg Inj IV 40 mg BID GABINO Administration Simple Syrup 15 ml 06/14/21 16:23 Simple Syrup 15 Ml FEEDTUBE PRN PRN Hypoglycemia Simple Syrup 30 ml 06/14/21 16:23 Simple Syrup 15 Ml FEEDTUBE PRN PRN Hypoglycemia Sodium Bicarbonate 325 mg 06/14/21 16:23 Sodium Bicarbonate 325 Mg Tab FEEDTUBE PRN PRN For Clogged Feeding Tube Sodium Chloride 10 ml 06/09/21 22:00 06/15/21 21:51 Sodium Chloride 0.9% 10 Ml Flush Syringe IV 10 ml BID GABINO Administration Sodium Chloride 10 ml 06/09/21 11:13 Sodium Chloride 0.9% 10 Ml Flush Syringe IV PRN PRN LINE FLUSH Nutrition/Malnutrition Assess - Dietary Evaluation Nutrition/Malnutrition Findings: Nutrition Notes Start: 06/11/21 15:21 Freq: Status: Active Protocol: Document 06/14/21 15:59 GB (Rec: 06/14/21 16:23 GB [id number]) Nutrition Notes Need for Assessment generated from: MD Order Initial or Follow up Reassessment Current Diagnosis Acute Kidney Injury, Respiratory Failure Other Pertinent Diagnosis metabolic encephalopathy, GI bleed, intubated Current Diet NPO, trickle feed TF Labs/Tests 06/14: Na 147, BUN 107, creatinine 6.8, Ca 6.7, Tbili 5, AST 578, ALT 298 Pertinent Medications reviewed Height 5 ft 3 in Weight 57.107 kg [place] Body Weight (kg) 52.27 BMI 22.3 Weight change and time frame no changes recorded Weight Status Appropriate Subjective/Other Information intubation continues, currently sedated, GI bleed, NPO x 4days 06/14: per gastroentologist note, okay to start trial of TF. Other notes: off sedation , prepped for possible HD Percent of energy/protein needs met: currently 0% with NPO 06/14: TF Nepro goal rate of GI Symptoms Other Food Allergy No Current % PO Other Minimum of two criteria No #1 Nutrition Diagnosis Inadequate energy intake Comments: 06/13: Intubation continues, NPOx4 days 06/14: TF trial, trickle feeds started. Formula Nepro start rate 10ml/hr (meets 30% or greater estimated energy needs ) Etiology Intubated, GI Bleed As Evidenced by Signs and Symptoms NPO, intubation Diagnosis Progress(for reassessment Continues documentation) Is patient on ventilator? Yes Is Patient Ambulatory and/or Out of Bed No REE-([facility]-confined to bed) 1343.208 Kcal/Kg value to use for calculation 25 Approximate Energy Requirements Using 1428 kcal/Kg Calculation Used for Recommendations Kcal/kg Additional Notes Protein 1-1.2 g/kg @ 57k- 68g Fluids: 1 ml/kcal or per MD Nutrition Intervention Change Diet Order: Continue NPO, if extubated begin Clear liquids (no red colored clears) 06/14: Begin TF: Nepro @ 33ml/ hr: Start rate 10ml/hr advance 5ml/8hr or per tolerance to goal. Flush: 25ml/hr Nutrition Support: Nepro @ 33ml/hr: Start rate 10ml/hr advance 5ml/8hr or per tolerance to goal. Flush: 25ml/hr Kcal 1,425 Protein (gm) 64 Fat (gm) 76 Fluid (mL) 575 Goal #1 Extubate and advance diet to clear liquids 06/14: not met, continues Goal #2 If intubation continues, begin TPN post central line placement 06/14: changed, okay to start TF trial Goal #3 Tolerate TF Nepro at start rate of 10ml/hr Goal #4 Tolerate TF Nepro at goal rate of 33ml/hr Follow-Up By: 06/18/21 Additional Comments f/u: TF tolerance or extubated and diet advanced clear liquids
[2021-06-16] MEDS: PANTOPRAZOLE 40 MG INJ IV SCH ×2 (09:10→22:04)
[2021-06-16] MEDS: methylPREDNISolone Sod Suc 500 MG in SODIUM CHLORIDE 0.9% 100 ML IV SCH (09:11)
--- NOTE | 2021-06-16 10:23 | Progress Note ---
Assessment and Plan - Patient Problems (1) Acute kidney injury Current Visit: Yes Status: Acute Plan to address problem: Worsening acute kidney injury likely secondary to acute tubular necrosis in the setting of cardiac arrest and severely decreased hemoglobin levels in the setting of upper GI bleed. Urinalysis however was also concerning for evidence of microscopic hematuria and proteinuria, indicating a possible underlying glomerulonephritis picture. Given worsening renal function along with anemia and given nephritic type urine analysis will undergo further testing at this time which will include serologic markers including complement levels and ANCA vasculitis levels. Will also add an anti-GBM antibody test at this time. We will monitor closely. Pending results at this time. Please avoid all nephrotoxins and maintain mean arterial pressures above 65 mmHg. Renal ultrasound reviewed without any acute abnormalities noted. Discussed with primary staff and recommend starting on pulse dose steroids x 3 days. Plan for 1g solumedrol on day one followed by 500 mg x 2 days. Vascath placed. Received first HD treatment yesterday. Plan for second session today. Orders written. Will then transition to MWF HD schedule next week. (2) Cardiac arrest Onset Date: ~06/09/21 Current Visit: Yes Status: Acute Plan to address problem: With return of spontaneous circulation. Off pressor support at this time. Will monitor closely. (3) GI bleed Onset Date: ~06/09/21 Current Visit: Yes Status: Acute Qualifiers: GI bleed type/associated pathology: unspecified gastrointestinal hemorrhage type Qualified Code(s): K92.2 - Gastrointestinal hemorrhage, unspecified Plan to address problem: That is post emergent EGD showing large amount of old blood without any evidence of active bleeding sites noted. We will continue to monitor closely. Continues on on Protonix drip. Await further recommendations from gastroenterology. Overall rate of GI bleeding seems to be decreased and hemoglobin/hematocrit levels are stable this morning. (4) Acute respiratory failure Current Visit: Yes Status: Acute Plan to address problem: Ventilator management per pulmonology. Stable on current vent settings. Subjective Date of service: 06/16/21 Principal diagnosis: UGI bleed Interval history: Patient initiated on dialysis yesterday, pending second treatment today. To lerated treatment well. Awake but not following commands. Objective - Vital Signs Vital signs: Vital Signs - 12hr 06/15/21 06/15/21 06/16/21 23:00 23:44 00:00 Temperature 97.5 F L Pulse Rate 77 79 87 Respiratory 17 18 Rate Blood Pressure 107/71 107/71 103/78 O2 Sat by Pulse 98 100 98 Oximetry 06/16/21 06/16/21 06/16/21 01:00 02:00 03:00 Temperature Pulse Rate 83 88 86 Respiratory 23 22 24 Rate Blood Pressure 127/85 124/85 137/85 O2 Sat by Pulse 99 99 98 Oximetry 06/16/21 06/16/21 06/16/21 04:00 04:08 05:00 Temperature 97.9 F Pulse Rate 87 85 93 H Respiratory 25 H 26 H Rate Blood Pressure 142/81 137/85 133/79 O2 Sat by Pulse 97 99 96 Oximetry 06/16/21 06/16/21 06/16/21 06:01 07:00 07:24 Temperature Pulse Rate 97 H 88 89 Respiratory 15 23 Rate Blood Pressure 133/79 145/97 145/97 O2 Sat by Pulse 98 98 99 Oximetry 06/16/21 06/16/21 06/16/21 08:00 08:15 08:44 Temperature 97.7 F Pulse Rate 80 Respiratory 18 Rate Blood Pressure 103/69 O2 Sat by Pulse 90 97 Oximetry - General Appearance General appearance: intubated, frail EENT: ATNC Neck: no JVD Respiratory: Present: Decreased Breath Sounds Cardiology: regular Gastrointestinal: normal Integumentary: warm and dry Musculoskeletal: deferred - Lab 06/16/21 06:15 06/16/21 06:15 Most recent lab results ABG pH 7.419 (7.320-7.450) 06/15/21 03:39 ABG pCO2 24.1 mm Hg 06/12/21 04:50 ABG pO2 127.8 mm Hg (80.0-90.0) H 06/12/21 04:50 ABG HCO3 13.2 mmol/L (20.0-26.0) L 06/12/21 04:50 ABG O2 Saturation 99.0 (0-100) 06/15/21 03:39 Calcium 7.4 mg/dL (8.4-10.2) L 06/16/21 06:15 Phosphorus 6.70 mg/dL (2.5-4.5) H 06/12/21 04:03 Magnesium 1.70 mg/dL (1.7-2.3) 06/12/21 04:03 Urine Creatinine 28.0 mg/dL (0.1-20.0) H 06/13/21 00:16 Urine Sodium 109 mmol/L 06/13/21 00:16 - Allied health notes Allied health notes reviewed: nursing Medications & Allergies - Medications Allergies/Adverse Reactions: Allergies No Known Allergies Allergy (Verified 05/22/16 22:45) Home Medications: Home Medications Medication Instructions Recorded Confirmed Last Taken Type No Known Home Medications [No 06/09/21 06/09/21 Unknown History Reported Home Medications] Active Medications: Generic Name Dose Route Start Last Admin Trade Name Freq PRN Reason Stop Dose Admin Lipase/Protease/Amylase 1 each 06/14/21 16:23 Lipase 10,500/Protease 25,000/Amylase 43,750 (Units) Dr Aponte FEEDTUBE PRN PRN For Clogged Feeding Tube Dextrose 50 ml 06/09/21 11:13 Dextrose 50% In Water (25gm) 50 Ml Syringe IV Q30MIN PRN Hypoglycemia Protocol Fentanyl 25 mcg 06/14/21 15:21 06/15/21 10:31 Fentanyl 100 Mcg/2 Ml Inj IV 25 mcg Q4HR PRN Administration Pain, Moderate (4-6) Hydrophilic Ointment 1 applic 06/09/21 03:26 06/12/21 20:00 Lip Therapy Vaseline TP 1 applic Q2HR PRN Administration Dry Lips Sodium Chloride 100 mls @ 999 mls/hr 06/15/21 08:53 Nacl 0.9% IV BURKE PRN Hypotension Methylprednisolone Sodium 100 mls @ 200 mls/hr 06/16/21 10:00 06/16/21 09:11 Succinate 500 mg/ Sodium IV 06/17/21 10:29 200 mls/hr Chloride Q24HR GABINO Administration Multi-Ingred Cream/Lotion/Oil/Oint 1 applic 06/09/21 03:26 06/12/21 20:05 Mineral Oil/Petrolatum, White Ophth Oint 3.5 Gm OU 1 applic Q4HR PRN Administration Dry Eye(s) Pantoprazole Sodium 40 mg 06/15/21 22:00 06/16/21 09:10 Pantoprazole 40 Mg Inj IV 40 mg BID GABINO Administration Simple Syrup 15 ml 06/14/21 16:23 Simple Syrup 15 Ml FEEDTUBE PRN PRN Hypoglycemia Simple Syrup 30 ml 06/14/21 16:23 Simple Syrup 15 Ml FEEDTUBE PRN PRN Hypoglycemia Sodium Bicarbonate 325 mg 06/14/21 16:23 Sodium Bicarbonate 325 Mg Tab FEEDTUBE PRN PRN For Clogged Feeding Tube Sodium Chloride 10 ml 06/09/21 22:00 06/16/21 09:11 Sodium Chloride 0.9% 10 Ml Flush Syringe IV 10 ml BID GABINO Administration Sodium Chloride 10 ml 06/09/21 11:13 Sodium Chloride 0.9% 10 Ml Flush Syringe IV PRN PRN LINE FLUSH
--- NOTE | 2021-06-16 10:46 | Gastroenterology Progress Note ---
Assessment and Plan 1. UGI bleed - resolved, cont PPI BID dosing, advance tube feeds as tolerated. 2. Abnormal liver enzymes - stable, suspect shock liver, trend levels and monitor will sign off, please call as needed or with changes. Subjective Date of service: 06/16/21 Principal diagnosis: UGI bleed Interval history: pt tolerating trickle tube feeds. + bm's without overt gi bleeding. Objective - Exam Narrative Exam: gen: intubated. eyes open but does not following commands abd: soft, nd - Constitutional Vitals: Temp Pulse Resp BP Pulse Ox 97.7 F 84 19 123/76 99 06/16/21 08:44 06/16/21 10:00 06/16/21 10:00 06/16/21 10:00 06/16/21 10:00 - Labs CBC & Chem 7: 06/16/21 06:15 06/16/21 06:15 Labs: Laboratory Results - last 24 hr 06/15/21 06/15/21 06/15/21 09:55 11:38 17:07 WBC RBC Hgb Hct MCV MCH MCHC RDW Plt Count Sodium Potassium Chloride Carbon Dioxide Anion Gap BUN Creatinine Estimated GFR BUN/Creatinine Ratio Glucose POC Glucose 160 H 161 H Calcium Total Bilirubin AST ALT Alkaline Phosphatase Total Protein Albumin Albumin/Globulin Ratio Hepatitis A IgM Ab Non-reactive Hep Bs Antigen Nonreactive Hep B Core IgM Ab Non-reactive Hepatitis C Antibody Non-reactive 06/15/21 06/16/21 06/16/21 23:24 05:47 06:15 WBC 12.2 H RBC 3.42 L Hgb 8.6 L Hct 25.7 L MCV 75 L MCH 25 L MCHC 33 RDW 22.6 H Plt Count 121 L Sodium Potassium Chloride Carbon Dioxide Anion Gap BUN Creatinine Estimated GFR BUN/Creatinine Ratio Glucose POC Glucose 166 H 136 H Calcium Total Bilirubin AST ALT Alkaline Phosphatase Total Protein Albumin Albumin/Globulin Ratio Hepatitis A IgM Ab Hep Bs Antigen Hep B Core IgM Ab Hepatitis C Antibody 06/16/21 06:15 WBC RBC Hgb Hct MCV MCH MCHC RDW Plt Count Sodium 147 H Potassium 3.7 Chloride 108.3 H Carbon Dioxide 15 L Anion Gap 27 BUN 82 H Creatinine 6.6 H Estimated GFR 8 BUN/Creatinine Ratio 12 Glucose 178 H POC Glucose Calcium 7.4 L Total Bilirubin 5.30 H AST 306 H ALT 201 H Alkaline Phosphatase 195 H Total Protein 5.9 L D Albumin 2.4 L Albumin/Globulin Ratio 0.7 Hepatitis A IgM Ab Hep Bs Antigen Hep B Core IgM Ab Hepatitis C Antibody
--- NOTE | 2021-06-16 17:12 | Progress Note ---
Assessment and Plan Imp: 1. UGIB 2. S/p CP arrest 3. Encephalopathy, ? anoxic 4. Acute respiratory failure, hypoxia 5. PEG Rec: 1. Tolerating SBT but mentation precludes extubation; avoid sedation 2. Solumedrol and HD per renal 3. PPI BID 4. SCDs, supportive care 5. Complex decision-making; prognosis guarded Subjective Date of service: 06/16/21 Principal diagnosis: UGI bleed Interval history: No events. Off sedation. Opens eyes but does not follow commands or track for me. Tolerating SBT. Active Medications Lipase/Protease/Amylase (Lipase 10,500/Protease 25,000/Amylase 43,750 (Units) Dr Aponte) 1 each FEEDTUBE PRN PRN PRN Reason: For Clogged Feeding Tube Dextrose (Dextrose 50% In Water (25gm) 50 Ml Syringe) 50 ml IV Q30MIN PRN; P rotocol PRN Reason: Hypoglycemia Fentanyl (Fentanyl 100 Mcg/2 Ml Inj) 25 mcg IV Q4HR PRN PRN Reason: Pain, Moderate (4-6) Last Admin: 06/15/21 10:31 Dose: 25 mcg Documented by: Hydrophilic Ointment (Lip Therapy Vaseline) 1 applic TP Q2HR PRN PRN Reason: Dry Lips Last Admin: 06/12/21 20:00 Dose: 1 applic Documented by: Sodium Chloride (Nacl 0.9%) 100 mls @ 999 mls/hr IV BURKE PRN PRN Reason: Hypotension Methylprednisolone Sodium Succinate 500 mg/ Sodium Chloride 100 mls @ 200 mls/hr IV Q24HR [facility] Stop: 06/17/21 10:29 Last Admin: 06/16/21 09:11 Dose: 200 mls/hr Documented by: Multi-Ingred Cream/Lotion/Oil/Oint (Mineral Oil/Petrolatum, White Ophth Oint 3.5 Gm) 1 applic OU Q4HR PRN PRN Reason: Dry Eye(s) Last Admin: 06/12/21 20:05 Dose: 1 applic Documented by: Pantoprazole Sodium (Pantoprazole 40 Mg Inj) 40 mg IV BID [facility] Last Admin: 06/16/21 09:10 Dose: 40 mg Documented by: Simple Syrup (Simple Syrup 15 Ml) 15 ml FEEDTUBE PRN PRN PRN Reason: Hypoglycemia Simple Syrup (Simple Syrup 15 Ml) 30 ml FEEDTUBE PRN PRN PRN Reason: Hypoglycemia Sodium Bicarbonate (Sodium Bicarbonate 325 Mg Tab) 325 mg FEEDTUBE PRN PRN PRN Reason: For Clogged Feeding Tube Sodium Chloride (Sodium Chloride 0.9% 10 Ml Flush Syringe) 10 ml IV BID GABINO Last Admin: 06/16/21 09:11 Dose: 10 ml Documented by: Sodium Chloride (Sodium Chloride 0.9% 10 Ml Flush Syringe) 10 ml IV PRN PRN PRN Reason: LINE FLUSH Objective Vital Signs - 12hr 06/16/21 06/16/21 06/16/21 06:01 07:00 07:24 Temperature Pulse Rate 97 H 88 89 Respiratory 15 23 Rate Blood Pressure 133/79 145/97 145/97 O2 Sat by Pulse 98 98 99 Oximetry 06/16/21 06/16/21 06/16/21 08:00 08:15 08:44 Temperature 97.7 F Pulse Rate 75 Respiratory 18 Rate Blood Pressure 103/69 O2 Sat by Pulse 90 97 Oximetry 06/16/21 06/16/21 06/16/21 09:00 10:00 11:00 Temperature Pulse Rate 92 H 84 95 H Respiratory 24 19 31 H Rate Blood Pressure 103/69 123/76 133/92 O2 Sat by Pulse 99 98 Oximetry 06/16/21 06/16/21 06/16/21 11:54 12:00 12:10 Temperature 98.3 F Pulse Rate 100 H Respiratory 34 H Rate Blood Pressure 148/82 O2 Sat by Pulse 94 95 Oximetry 06/16/21 06/16/21 06/16/21 13:00 14:00 15:00 Temperature Pulse Rate 98 H 99 H 106 H Respiratory 32 H 38 H 25 H Rate Blood Pressure 149/84 151/88 130/82 O2 Sat by Pulse 94 93 98 Oximetry 06/16/21 06/16/21 15:39 16:00 Temperature 98.2 F Pulse Rate 103 H 82 Respiratory 38 H 20 Rate Blood Pressure 151/88 129/75 O2 Sat by Pulse 97 96 Oximetry Constitutional: other (intubated, critically ill) Eyes: non-icteric Neck: supple Effort: normal Ascultation: Bilateral: other Cardiovascular: regular rate and rhythm (no mrg) Gastrointestinal: normoactive bowel sounds, soft, non-tender, non-distended Integumentary: normal Extremities: no cyanosis, no edema, pink and warm Neurologic: other (unresponsive) Psychiatric: other (unable to assess) CBC and BMP: 06/16/21 06:15 06/16/21 06:15 ABG, PT/INR, D-dimer: ABG ABG pH 7.419 (7.320-7.450) 06/15/21 03:39 POC ABG pCO2 21.2 mmHg (32.0-48.0) L 06/15/21 03:39 ABG pCO2 24.1 mm Hg 06/12/21 04:50 POC ABG pO2 146.6 mmHg (83-108) H 06/15/21 03:39 ABG pO2 127.8 mm Hg (80.0-90.0) H 06/12/21 04:50 POC ABG HCO3 13.4 06/15/21 03:39 ABG O2 Saturation 99.0 (0-100) 06/15/21 03:39 PT/INR, D-dimer PT 18.9 Sec. (12.2-14.9) H 06/15/21 04:30 INR 1.53 (0.87-1.13) H 06/15/21 04:30 Abnormal lab findings: Abnormal Labs 06/09/21 06/09/21 06/09/21 03:27 03:42 03:59 WBC RBC 1.57 L Hgb 3.0 L* Hct 11.8 L* MCV 75 L MCH 19 L MCHC 26 L RDW 21.7 H Plt Count 109 L Lymph % (Auto) 9.7 L [place] % (Auto) 8.5 H Lymph # (Auto) 0.9 L [place] # (Auto) Seg Neutrophils % 81.2 H Seg Neuts % (Manual) Lymphocytes % (Manual) Nucleated RBC % Seg Neutrophils # Seg Neutrophils # Man Lymphocytes # (Manual) PT INR APTT Fibrinogen ABG pH POC ABG pCO2 POC ABG pO2 ABG pO2 ABG HCO3 ABG Base Excess ABG Hemoglobin ABG Oxyhemoglobin ABG Sodium ABG Potassium ABG Chloride ABG Glucose Carboxyhemoglobin Sodium Potassium Chloride 95.2 L Carbon Dioxide 8 L* BUN 18 H Creatinine Glucose 540 H* POC Glucose Lactic Acid 28.20 H* Calcium 11.5 H Phosphorus Magnesium Total Bilirubin AST 411 H ALT 106 H Alkaline Phosphatase Lactate Dehydrogenase Total Protein 4.9 L Albumin 2.4 L Arterial Blood Glucose Arterial Blood Ionized Calcium Urine WBC (Auto) Urine Creatinine Complement C3 Complement C4 Crossmatch 06/09/21 06/09/21 06/09/21 03:59 04:00 04:04 WBC RBC Hgb Hct MCV MCH MCHC RDW Plt Count Lymph % (Auto) [place] % (Auto) Lymph # (Auto) [place] # (Auto) Seg Neutrophils % Seg Neuts % (Manual) Lymphocytes % (Manual) Nucleated RBC % Seg Neutrophils # Seg Neutrophils # Man Lymphocytes # (Manual) PT 34.3 H INR 3.36 H APTT 66.3 H* Fibrinogen ABG pH 6.845 L POC ABG pCO2 POC ABG pO2 116.6 H ABG pO2 ABG HCO3 ABG Base Excess ABG Hemoglobin 2.6 L ABG Oxyhemoglobin 90.6 L ABG Sodium ABG Potassium 3.0 L ABG Chloride ABG Glucose 334 H Carboxyhemoglobin 1.8 H Sodium Potassium Chloride Carbon Dioxide BUN Creatinine Glucose POC Glucose Lactic Acid Calcium Phosphorus Magnesium Total Bilirubin AST ALT Alkaline Phosphatase Lactate Dehydrogenase Total Protein Albumin Arterial Blood Glucose 334 H Arterial Blood Ionized Calcium Urine WBC (Auto) Urine Creatinine Complement C3 Complement C4 Crossmatch See Detail 06/09/21 06/09/21 06/09/21 05:16 11:42 11:44 WBC RBC Hgb Hct MCV MCH MCHC RDW Plt Count Lymph % (Auto) [place] % (Auto) Lymph # (Auto) [place] # (Auto) Seg Neutrophils % Seg Neuts % (Manual) Lymphocytes % (Manual) Nucleated RBC % Seg Neutrophils # Seg Neutrophils # Man Lymphocytes # (Manual) PT INR APTT Fibrinogen ABG pH POC ABG pCO2 POC ABG pO2 ABG pO2 ABG HCO3 ABG Base Excess ABG Hemoglobin ABG Oxyhemoglobin ABG Sodium ABG Potassium ABG Chloride ABG Glucose Carboxyhemoglobin Sodium Potassium Chloride 109.5 H Carbon Dioxide 4 L* BUN 19 H Creatinine Glucose 158 H POC Glucose 191 H Lactic Acid 25.20 H* Calcium 7.8 L D Phosphorus Magnesium Total Bilirubin AST ALT Alkaline Phosphatase Lactate Dehydrogenase 2208 H Total Protein Albumin Arterial Blood Glucose Arterial Blood Ionized Calcium Urine WBC (Auto) Urine Creatinine Complement C3 Complement C4 Crossmatch 06/09/21 06/09/21 06/10/21 12:27 12:27 04:21 WBC 14.2 H RBC 3.58 L Hgb 8.9 L D Hct 29.9 L D MCV MCH 25 L MCHC RDW 22.0 H Plt Count 94 L Lymph % (Auto) [place] % (Auto) Lymph # (Auto) [place] # (Auto) Seg Neutrophils % Seg Neuts % (Manual) 87.0 H Lymphocytes % (Manual) 5.0 L Nucleated RBC % Seg Neutrophils # Seg Neutrophils # Man 12.4 H Lymphocytes # (Manual) 0.7 L PT 36.0 H INR 3.58 H APTT 52.6 H Fibrinogen 83 L* ABG pH 7.323 L POC ABG pCO2 POC ABG pO2 ABG pO2 152.9 H ABG HCO3 12.6 L ABG Base Excess -12.0 L ABG Hemoglobin 9.2 L ABG Oxyhemoglobin ABG Sodium ABG Potassium ABG Chloride ABG Glucose Carboxyhemoglobin Sodium Potassium Chloride Carbon Dioxide BUN Creatinine Glucose POC Glucose Lactic Acid Calcium Phosphorus Magnesium Total Bilirubin AST ALT Alkaline Phosphatase Lactate Dehydrogenase Total Protein Albumin Arterial Blood Glucose Arterial Blood Ionized Calcium Urine WBC (Auto) Urine Creatinine Complement C3 Complement C4 Crossmatch 06/10/21 06/10/21 06/10/21 04:27 04:27 06:59 WBC 14.1 H RBC Hgb Hct MCV MCH 25 L MCHC RDW 20.0 H Plt Count 99 L Lymph % (Auto) 4.2 L [place] % (Auto) 8.6 H Lymph # (Auto) 0.6 L [place] # (Auto) 1.2 H Seg Neutrophils % 86.6 H Seg Neuts % (Manual) Lymphocytes % (Manual) Nucleated RBC % Seg Neutrophils # 12.2 H Seg Neutrophils # Man Lymphocytes # (Manual) PT INR APTT Fibrinogen ABG pH POC ABG pCO2 POC ABG pO2 ABG pO2 ABG HCO3 ABG Base Excess ABG Hemoglobin ABG Oxyhemoglobin ABG Sodium ABG Potassium ABG Chloride ABG Glucose Carboxyhemoglobin Sodium 146 H Potassium 3.4 L Chloride 115.2 H Carbon Dioxide 14 L D BUN 30 H Creatinine 1.9 H D Glucose 122 H POC Glucose Lactic Acid 4.60 H* Calcium 7.4 L Phosphorus Magnesium Total Bilirubin 7.00 H AST 2708 H ALT 522 H Alkaline Phosphatase Lactate Dehydrogenase Total Protein 4.8 L Albumin 2.4 L Arterial Blood Glucose Arterial Blood Ionized Calcium Urine WBC (Auto) Urine Creatinine Complement C3 Complement C4 Crossmatch 06/10/21 06/10/21 06/10/21 06:59 08:23 08:47 WBC RBC Hgb Hct MCV MCH MCHC RDW Plt Count Lymph % (Auto) [place] % (Auto) Lymph # (Auto) [place] # (Auto) Seg Neutrophils % Seg Neuts % (Manual) Lymphocytes % (Manual) Nucleated RBC % Seg Neutrophils # Seg Neutrophils # Man Lymphocytes # (Manual) PT 26.8 H INR 2.42 H APTT Fibrinogen ABG pH POC ABG pCO2 POC ABG pO2 ABG pO2 ABG HCO3 ABG Base Excess ABG Hemoglobin ABG Oxyhemoglobin ABG Sodium ABG Potassium ABG Chloride ABG Glucose Carboxyhemoglobin Sodium Potassium Chloride Carbon Dioxide BUN Creatinine Glucose POC Glucose 121 H Lactic Acid Calcium Phosphorus Magnesium Total Bilirubin AST ALT Alkaline Phosphatase Lactate Dehydrogenase Total Protein Albumin Arterial Blood Glucose Arterial Blood Ionized Calcium Urine WBC (Auto) 23.0 H Urine Creatinine Complement C3 Complement C4 Crossmatch 06/10/21 06/10/21 06/11/21 11:47 23:46 03:52 WBC RBC Hgb Hct MCV MCH MCHC RDW Plt Count Lymph % (Auto) [place] % (Auto) Lymph # (Auto) [place] # (Auto) Seg Neutrophils % Seg Neuts % (Manual) Lymphocytes % (Manual) Nucleated RBC % Seg Neutrophils # Seg Neutrophils # Man Lymphocytes # (Manual) PT INR APTT Fibrinogen ABG pH POC ABG pCO2 POC ABG pO2 ABG pO2 148.9 H ABG HCO3 13.0 L ABG Base Excess -10.1 L ABG Hemoglobin 9.1 L ABG Oxyhemoglobin ABG Sodium ABG Potassium ABG Chloride ABG Glucose Carboxyhemoglobin Sodium Potassium Chloride Carbon Dioxide BUN Creatinine Glucose POC Glucose Lactic Acid 4.40 H* 3.30 H* Calcium Phosphorus Magnesium Total Bilirubin AST ALT Alkaline Phosphatase Lactate Dehydrogenase Total Protein Albumin Arterial Blood Glucose Arterial Blood Ionized Calcium Urine WBC (Auto) Urine Creatinine Complement C3 Complement C4 Crossmatch 06/11/21 06/11/21 06/11/21 05:05 10:38 10:38 WBC 12.6 H RBC 3.38 L Hgb 8.5 L Hct 26.3 L MCV 78 L MCH 25 L MCHC RDW 20.6 H Plt Count 97 L Lymph % (Auto) [place] % (Auto) Lymph # (Auto) [place] # (Auto) Seg Neutrophils % Seg Neuts % (Manual) Lymphocytes % (Manual) Nucleated RBC % Seg Neutrophils # Seg Neutrophils # Man Lymphocytes # (Manual) PT 23.1 H INR 1.98 H APTT Fibrinogen ABG pH POC ABG pCO2 POC ABG pO2 ABG pO2 ABG HCO3 ABG Base Excess ABG Hemoglobin ABG Oxyhemoglobin ABG Sodium ABG Potassium ABG Chloride ABG Glucose Carboxyhemoglobin Sodium Potassium Chloride Carbon Dioxide BUN Creatinine Glucose POC Glucose Lactic Acid 2.40 H* Calcium Phosphorus Magnesium Total Bilirubin AST ALT Alkaline Phosphatase Lactate Dehydrogenase Total Protein Albumin Arterial Blood Glucose Arterial Blood Ionized Calcium Urine WBC (Auto) Urine Creatinine Complement C3 Complement C4 Crossmatch 06/11/21 06/11/21 06/11/21 10:38 10:38 12:15 WBC RBC Hgb Hct MCV MCH MCHC RDW Plt Count Lymph % (Auto) [place] % (Auto) Lymph # (Auto) [place] # (Auto) Seg Neutrophils % Seg Neuts % (Manual) Lymphocytes % (Manual) Nucleated RBC % Seg Neutrophils # Seg Neutrophils # Man Lymphocytes # (Manual) PT INR APTT Fibrinogen ABG pH POC ABG pCO2 POC ABG pO2 ABG pO2 ABG HCO3 ABG Base Excess ABG Hemoglobin ABG Oxyhemoglobin ABG Sodium ABG Potassium ABG Chloride ABG Glucose Carboxyhemoglobin Sodium 147 H Potassium Chloride 118.1 H Carbon Dioxide 11 L BUN 53 H Creatinine 3.2 H D Glucose 104 H POC Glucose Lactic Acid 2.30 H* Calcium 5.9 L* D 5.9 L* Phosphorus 7.10 H Magnesium 1.60 L Total Bilirubin 4.20 H AST 2252 H ALT 540 H Alkaline Phosphatase Lactate Dehydrogenase Total Protein 4.4 L Albumin 2.2 L Arterial Blood Glucose Arterial Blood Ionized Calcium Urine WBC (Auto) Urine Creatinine Complement C3 Complement C4 Crossmatch 06/11/21 06/11/21 06/12/21 14:48 17:45 04:03 WBC 14.7 H RBC Hgb 8.9 L 9.4 L 9.2 L Hct 29.6 L 28.6 L 28.0 L MCV 77 L MCH 25 L MCHC RDW 21.2 H Plt Count 112 L Lymph % (Auto) 5.4 L [place] % (Auto) 8.6 H Lymph # (Auto) 0.8 L [place] # (Auto) 1.3 H Seg Neutrophils % 85.8 H Seg Neuts % (Manual) Lymphocytes % (Manual) Nucleated RBC % Seg Neutrophils # 12.6 H Seg Neutrophils # Man Lymphocytes # (Manual) PT INR APTT Fibrinogen ABG pH POC ABG pCO2 POC ABG pO2 ABG pO2 ABG HCO3 ABG Base Excess ABG Hemoglobin ABG Oxyhemoglobin ABG Sodium ABG Potassium ABG Chloride ABG Glucose Carboxyhemoglobin Sodium Potassium Chloride Carbon Dioxide BUN Creatinine Glucose POC Glucose Lactic Acid Calcium Phosphorus Magnesium Total Bilirubin AST ALT Alkaline Phosphatase Lactate Dehydrogenase Total Protein Albumin Arterial Blood Glucose Arterial Blood Ionized Calcium Urine WBC (Auto) Urine Creatinine Complement C3 Complement C4 Crossmatch 06/12/21 06/12/21 06/12/21 04:03 04:03 04:50 WBC RBC Hgb Hct MCV MCH MCHC RDW Plt Count Lymph % (Auto) [place] % (Auto) Lymph # (Auto) [place] # (Auto) Seg Neutrophils % Seg Neuts % (Manual) Lymphocytes % (Manual) Nucleated RBC % Seg Neutrophils # Seg Neutrophils # Man Lymphocytes # (Manual) PT 24.1 H INR 2.10 H APTT Fibrinogen ABG pH POC ABG pCO2 POC ABG pO2 ABG pO2 127.8 H ABG HCO3 13.2 L ABG Base Excess -11.0 L ABG Hemoglobin 8.6 L ABG Oxyhemoglobin ABG Sodium ABG Potassium ABG Chloride ABG Glucose Carboxyhemoglobin Sodium 148 H Potassium Chloride 117.8 H Carbon Dioxide 17 L BUN 72 H Creatinine 4.6 H Glucose POC Glucose Lactic Acid Calcium 6.1 L Phosphorus 6.70 H Magnesium Total Bilirubin 3.40 H AST 1494 H ALT 512 H Alkaline Phosphatase Lactate Dehydrogenase Total Protein 4.4 L Albumin 2.2 L Arterial Blood Glucose Arterial Blood Ionized Calcium Urine WBC (Auto) Urine Creatinine Complement C3 Complement C4 Crossmatch 06/12/21 06/12/21 06/13/21 20:15 20:15 00:16 WBC RBC Hgb Hct MCV MCH MCHC RDW Plt Count Lymph % (Auto) [place] % (Auto) Lymph # (Auto) [place] # (Auto) Seg Neutrophils % Seg Neuts % (Manual) Lymphocytes % (Manual) Nucleated RBC % Seg Neutrophils # Seg Neutrophils # Man Lymphocytes # (Manual) PT INR APTT Fibrinogen ABG pH POC ABG pCO2 POC ABG pO2 ABG pO2 ABG HCO3 ABG Base Excess ABG Hemoglobin ABG Oxyhemoglobin ABG Sodium ABG Potassium ABG Chloride ABG Glucose Carboxyhemoglobin Sodium Potassium Chloride Carbon Dioxide BUN Creatinine Glucose POC Glucose Lactic Acid Calcium Phosphorus Magnesium Total Bilirubin AST ALT Alkaline Phosphatase Lactate Dehydrogenase Total Protein Albumin Arterial Blood Glucose Arterial Blood Ionized Calcium Urine WBC (Auto) Urine Creatinine 28.0 H Complement C3 40 L Complement C4 4 L Crossmatch 06/13/21 06/13/21 06/13/21 04:00 08:11 08:11 WBC RBC 3.51 L Hgb 8.9 L Hct 26.2 L MCV 75 L MCH 25 L MCHC RDW 21.3 H Plt Count 96 L Lymph % (Auto) [place] % (Auto) Lymph # (Auto) [place] # (Auto) Seg Neutrophils % Seg Neuts % (Manual) Lymphocytes % (Manual) Nucleated RBC % Seg Neutrophils # Seg Neutrophils # Man Lymphocytes # (Manual) PT INR APTT Fibrinogen ABG pH POC ABG pCO2 22.8 L POC ABG pO2 115.7 H ABG pO2 ABG HCO3 ABG Base Excess ABG Hemoglobin 7.2 L ABG Oxyhemoglobin ABG Sodium ABG Potassium ABG Chloride 119.0 H ABG Glucose 102 H Carboxyhemoglobin Sodium 147 H Potassium Chloride 117.2 H Carbon Dioxide 15 L BUN 96 H Creatinine 6.1 H Glucose 107 H POC Glucose Lactic Acid Calcium 6.2 L Phosphorus Magnesium Total Bilirubin AST ALT Alkaline Phosphatase Lactate Dehydrogenase Total Protein Albumin Arterial Blood Glucose 102 H Arterial Blood Ionized Calcium Urine WBC (Auto) Urine Creatinine Complement C3 Complement C4 Crossmatch 06/13/21 06/13/21 06/14/21 12:54 14:17 04:35 WBC RBC Hgb Hct MCV MCH MCHC RDW Plt Count Lymph % (Auto) [place] % (Auto) Lymph # (Auto) [place] # (Auto) Seg Neutrophils % Seg Neuts % (Manual) Lymphocytes % (Manual) Nucleated RBC % Seg Neutrophils # Seg Neutrophils # Man Lymphocytes # (Manual) PT 18.2 H INR 1.44 H APTT Fibrinogen ABG pH 7.507 H POC ABG pCO2 15.9 L POC ABG pO2 121.2 H ABG pO2 ABG HCO3 ABG Base Excess ABG Hemoglobin 6.3 L ABG Oxyhemoglobin ABG Sodium ABG Potassium ABG Chloride 119.0 H ABG Glucose Carboxyhemoglobin Sodium Potassium Chloride Carbon Dioxide BUN Creatinine Glucose POC Glucose 107 H Lactic Acid Calcium Phosphorus Magnesium Total Bilirubin AST ALT Alkaline Phosphatase Lactate Dehydrogenase Total Protein Albumin Arterial Blood Glucose Arterial Blood Ionized Calcium 3.5 L Urine WBC (Auto) Urine Creatinine Complement C3 Complement C4 Crossmatch 06/14/21 06/14/21 06/14/21 08:45 08:45 08:45 WBC RBC Hgb 9.3 L Hct 27.6 L MCV 75 L MCH 25 L MCHC RDW 21.9 H Plt Count 137 L Lymph % (Auto) [place] % (Auto) Lymph # (Auto) [place] # (Auto) Seg Neutrophils % Seg Neuts % (Manual) Lymphocytes % (Manual) Nucleated RBC % Seg Neutrophils # Seg Neutrophils # Man Lymphocytes # (Manual) PT 16.8 H INR 1.30 H APTT Fibrinogen ABG pH POC ABG pCO2 POC ABG pO2 ABG pO2 ABG HCO3 ABG Base Excess ABG Hemoglobin ABG Oxyhemoglobin ABG Sodium ABG Potassium ABG Chloride ABG Glucose Carboxyhemoglobin Sodium 147 H Potassium Chloride 115.5 H Carbon Dioxide 15 L BUN 107 H Creatinine 6.8 H Glucose POC Glucose Lactic Acid Calcium 6.7 L Phosphorus Magnesium Total Bilirubin 5.00 H AST 578 H ALT 298 H Alkaline Phosphatase Lactate Dehydrogenase Total Protein 5.6 L D Albumin 2.3 L Arterial Blood Glucose Arterial Blood Ionized Calcium Urine WBC (Auto) Urine Creatinine Complement C3 Complement C4 Crossmatch 06/14/21 06/15/21 06/15/21 23:31 03:39 04:30 WBC 11.2 H RBC 3.05 L Hgb 7.5 L Hct 23.3 L MCV 76 L MCH 25 L MCHC RDW 23.1 H Plt Count 109 L Lymph % (Auto) [place] % (Auto) Lymph # (Auto) [place] # (Auto) Seg Neutrophils % Seg Neuts % (Manual) 90.0 H Lymphocytes % (Manual) 2.0 L Nucleated RBC % 1.0 H Seg Neutrophils # Seg Neutrophils # Man 10.1 H Lymphocytes # (Manual) 0.2 L PT INR APTT Fibrinogen ABG pH POC ABG pCO2 21.2 L POC ABG pO2 146.6 H ABG pO2 ABG HCO3 ABG Base Excess ABG Hemoglobin 8.0 L ABG Oxyhemoglobin ABG Sodium 145.2 H ABG Potassium ABG Chloride 120.0 H ABG Glucose 126 H Carboxyhemoglobin Sodium Potassium Chloride Carbon Dioxide BUN Creatinine Glucose POC Glucose 108 H Lactic Acid Calcium Phosphorus Magnesium Total Bilirubin AST ALT Alkaline Phosphatase Lactate Dehydrogenase Total Protein Albumin Arterial Blood Glucose 126 H Arterial Blood Ionized Calcium Urine WBC (Auto) Urine Creatinine Complement C3 Complement C4 Crossmatch 06/15/21 06/15/21 06/15/21 04:30 04:30 05:14 WBC RBC Hgb Hct MCV MCH MCHC RDW Plt Count Lymph % (Auto) [place] % (Auto) Lymph # (Auto) [place] # (Auto) Seg Neutrophils % Seg Neuts % (Manual) Lymphocytes % (Manual) Nucleated RBC % Seg Neutrophils # Seg Neutrophils # Man Lymphocytes # (Manual) PT 18.9 H INR 1.53 H APTT Fibrinogen ABG pH POC ABG pCO2 POC ABG pO2 ABG pO2 ABG HCO3 ABG Base Excess ABG Hemoglobin ABG Oxyhemoglobin ABG Sodium ABG Potassium ABG Chloride ABG Glucose Carboxyhemoglobin Sodium 147 H Potassium Chloride 116.5 H Carbon Dioxide 16 L BUN 121 H Creatinine 8.6 H Glucose 147 H POC Glucose 125 H Lactic Acid Calcium 6.5 L Phosphorus Magnesium Total Bilirubin 5.10 H AST 349 H ALT 214 H Alkaline Phosphatase Lactate Dehydrogenase Total Protein 4.9 L Albumin 2.0 L Arterial Blood Glucose Arterial Blood Ionized Calcium Urine WBC (Auto) Urine Creatinine Complement C3 Complement C4 Crossmatch 06/15/21 06/15/21 06/15/21 11:38 17:07 23:24 WBC RBC Hgb Hct MCV MCH MCHC RDW Plt Count Lymph % (Auto) [place] % (Auto) Lymph # (Auto) [place] # (Auto) Seg Neutrophils % Seg Neuts % (Manual) Lymphocytes % (Manual) Nucleated RBC % Seg Neutrophils # Seg Neutrophils # Man Lymphocytes # (Manual) PT INR APTT Fibrinogen ABG pH POC ABG pCO2 POC ABG pO2 ABG pO2 ABG HCO3 ABG Base Excess ABG Hemoglobin ABG Oxyhemoglobin ABG Sodium ABG Potassium ABG Chloride ABG Glucose Carboxyhemoglobin Sodium Potassium Chloride Carbon Dioxide BUN Creatinine Glucose POC Glucose 160 H 161 H 166 H Lactic Acid Calcium Phosphorus Magnesium Total Bilirubin AST ALT Alkaline Phosphatase Lactate Dehydrogenase Total Protein Albumin Arterial Blood Glucose Arterial Blood Ionized Calcium Urine WBC (Auto) Urine Creatinine Complement C3 Complement C4 Crossmatch 06/16/21 06/16/21 06/16/21 05:47 06:15 06:15 WBC 12.2 H RBC 3.42 L Hgb 8.6 L Hct 25.7 L MCV 75 L MCH 25 L MCHC RDW 22.6 H Plt Count 121 L Lymph % (Auto) [place] % (Auto) Lymph # (Auto) [place] # (Auto) Seg Neutrophils % Seg Neuts % (Manual) Lymphocytes % (Manual) Nucleated RBC % Seg Neutrophils # Seg Neutrophils # Man Lymphocytes # (Manual) PT INR APTT Fibrinogen ABG pH POC ABG pCO2 POC ABG pO2 ABG pO2 ABG HCO3 ABG Base Excess ABG Hemoglobin ABG Oxyhemoglobin ABG Sodium ABG Potassium ABG Chloride ABG Glucose Carboxyhemoglobin Sodium 147 H Potassium Chloride 108.3 H Carbon Dioxide 15 L BUN 82 H Creatinine 6.6 H Glucose 178 H POC Glucose 136 H Lactic Acid Calcium 7.4 L Phosphorus Magnesium Total Bilirubin 5.30 H AST 306 H ALT 201 H Alkaline Phosphatase 195 H Lactate Dehydrogenase Total Protein 5.9 L D Albumin 2.4 L Arterial Blood Glucose Arterial Blood Ionized Calcium Urine WBC (Auto) Urine Creatinine Complement C3 Complement C4 Crossmatch 06/16/21 11:41 WBC RBC Hgb Hct MCV MCH MCHC RDW Plt Count Lymph % (Auto) [place] % (Auto) Lymph # (Auto) [place] # (Auto) Seg Neutrophils % Seg Neuts % (Manual) Lymphocytes % (Manual) Nucleated RBC % Seg Neutrophils # Seg Neutrophils # Man Lymphocytes # (Manual) PT INR APTT Fibrinogen ABG pH POC ABG pCO2 POC ABG pO2 ABG pO2 ABG HCO3 ABG Base Excess ABG Hemoglobin ABG Oxyhemoglobin ABG Sodium ABG Potassium ABG Chloride ABG Glucose Carboxyhemoglobin Sodium Potassium Chloride Carbon Dioxide BUN Creatinine Glucose POC Glucose 169 H Lactic Acid Calcium Phosphorus Magnesium Total Bilirubin AST ALT Alkaline Phosphatase Lactate Dehydrogenase Total Protein Albumin Arterial Blood Glucose Arterial Blood Ionized Calcium Urine WBC (Auto) Urine Creatinine Complement C3 Complement C4 Crossmatch Chest x-ray: report reviewed, image reviewed Allied health notes reviewed: nursing
[2021-06-17 08:21] LABS: Hematocrit 27.1 % (30.3-42.9); Hemoglobin 9.1 gm/dl (10.1-14.3); Mean Corpuscular HGB Conc 33 % (30-34); Mean Corpuscular Volume 75 fl (79-97); Platelet Count 140 K/mm3 (140-440); Red Blood Count 3.62 M/mm3 (3.65-5.03); Red Cell Distribution Width 22.8 % (13.2-15.2)
--- NOTE | 2021-06-17 08:22 | Progress Note ---
Assessment and Plan Assessment and plan: 06/16/2021: GI signed off. Will continue protonix BID. Stable hemoglobin. Patient tolerated HD yesterday and will have another session today. 06/17/2021: Increased white blood cell count. Afebrile. Second session of HD yesterday, patient tolerated well. Plan for HD MWF. Updates discussed with family via iPad. #Acute upper GI bleed -resolved #Acute blood loss anemia-resolved #Hemorrhagic shock requiring pressors -resolved -s/p Rocephin, vancomycin and pressors -hemoglobin 9.1 today, will transfuse for hemoglobin less than 7 -received 5 units PRBCs total -continue Protonix IV BID -Endoscopy 06/10/21: Clipping of presumed location of bleed by GI #Acute encephalopathy -Hypoxic versus metabolic -Neurology consulted, will look at MRI to determine next steps -CT head showed ill-defined differentiation of joseph and white matter which could reflect global hypoxic ischemic injury -MRI showed subtle cortical signal abnormalities in the posterior cerebral hemispheres -EEG pending #Acute kidney injury -Unknown baseline, creatinine 4.2 -Renal ultrasound negative -femoral vasc cath for access -HD x2; continue with HD MWF per Nephrology -continue pulse dose steroids (day 3) -Nephrology following, recs appreciated #PEA arrest -ROSC achieved #Anion gap metabolic acidosis #Lactic acidosis -Resolved -Likely secondary to PEA arrest and upper GI bleed #Coagulopathy -will continue to trend INR -give vitamin K as needed #Elevated liver enzymes -AST, ALT, T bili downtrending -likely secondary to shock -will continue to monitor #Acute hypoxic respiratory failure -intubated for airway protection, Pulmonary managing -unable to be extubated due to mental status -Plan for extubation as mental status will allow #Nutrition- continue TF @10cc/hr #CODE STATUS - Full Code Disposition Plan: Continue medical management Total Time Spent with Patient (Minutes): 60 minutes History Interval history: No acute events. Patient intubated. Tolerated HD yesterday. Family updated about status via ipad. Hospitalist Physical - Physical exam Narrative exam: GENERAL: Elderly woman. Intubated. HEENT: ETT and NG tube in place. NECK: Right IJ CHEST/LUNGS: Coarse breath sounds bilaterally. HEART/CARDIOVASCULAR: RRR. No murmur, rubs or gallops appreciated. ABDOMEN: +BS. NT/ND. GI/: R femoral vasc cath. Rectal tube. NEURO: Unable to assess. EXTREMITIES: No cyanosis, clubbing or edema. PSYCH: Unable to assess - Constitutional Vitals: Temp Pulse Resp BP Pulse Ox 98.2 F 80 28 H 133/93 100 06/17/21 07:00 06/17/21 07:16 06/17/21 06:01 06/17/21 07:16 06/17/21 07:16 General appearance: Present: no acute distress - Allied Health Allied health notes reviewed: nursing HEART Score - HEART Score EKG: Normal Age: 45-65 Troponin: Troponin T < 0.010 ng/mL (0.00-0.029) 06/09/21 03:27 - Critical Actions Critical Actions: 4-6 pts:12-16.6% risk of adverse cardiac event. Should be admitted Results - Labs CBC & Chem 7: 06/17/21 08:00 06/17/21 08:00 Labs: Laboratory Last Values WBC 17.4 K/mm3 (4.5-11.0) H 06/17/21 08:00 RBC 3.62 M/mm3 (3.65-5.03) L 06/17/21 08:00 Hgb 9.1 gm/dl (10.1-14.3) L 06/17/21 08:00 Hct 27.1 % (30.3-42.9) L 06/17/21 08:00 MCV 75 fl (79-97) L 06/17/21 08:00 MCH 25 pg (28-32) L 06/17/21 08:00 MCHC 33 % (30-34) 06/17/21 08:00 RDW 22.8 % (13.2-15.2) H 06/17/21 08:00 Plt Count 140 K/mm3 (140-440) 06/17/21 08:00 Lymph % (Auto) 5.4 % (13.4-35.0) L 06/12/21 04:03 [place] % (Auto) Pilot Safety Inspector 06/15/21 04:30 Eos % (Auto) Pilot Safety Inspector 06/15/21 04:30 Baso % (Auto) 0.1 % (0.0-1.8) 06/12/21 04:03 Lymph # (Auto) 0.8 K/mm3 (1.2-5.4) L 06/12/21 04:03 [place] # (Auto) Pilot Safety Inspector 06/15/21 04:30 Eos # (Auto) Pilot Safety Inspector 06/15/21 04:30 Baso # (Auto) Pilot Safety Inspector 06/15/21 04:30 Add Manual Diff Complete 06/15/21 04:30 Total Counted 100 06/15/21 04:30 Seg Neutrophils % Pilot Safety Inspector 06/15/21 04:30 Seg Neuts % (Manual) 90.0 % (40.0-70.0) H 06/15/21 04:30 Band Neutrophils % 2.0 % 06/15/21 04:30 Lymphocytes % (Manual) 2.0 % (13.4-35.0) L 06/15/21 04:30 Reactive Lymphs % (Man) 1.0 % 06/15/21 04:30 Monocytes % (Manual) 5.0 % (0.0-7.3) 06/15/21 04:30 Nucleated RBC % 1.0 % (0.0-0.9) H 06/15/21 04:30 Seg Neutrophils # Pilot Safety Inspector 06/15/21 04:30 Seg Neutrophils # Man 10.1 K/mm3 (1.8-7.7) H 06/15/21 04:30 Band Neutrophils # 0.2 K/mm3 06/15/21 04:30 Lymphocytes # (Manual) 0.2 K/mm3 (1.2-5.4) L 06/15/21 04:30 Abs React Lymphs (Man) 0.1 K/mm3 06/15/21 04:30 Monocytes # (Manual) 0.6 K/mm3 (0.0-0.8) 06/15/21 04:30 Eosinophils # (Manual) 0.0 K/mm3 (0.0-0.4) 06/15/21 04:30 Basophils # (Manual) 0.0 K/mm3 (0.0-0.1) 06/15/21 04:30 Metamyelocytes # 0.0 K/mm3 06/15/21 04:30 Myelocytes # 0.0 K/mm3 06/15/21 04:30 Promyelocytes # 0.0 K/mm3 06/15/21 04:30 Blast Cells # 0.0 K/mm3 06/15/21 04:30 WBC Morphology Not Reportable 06/15/21 04:30 Hypersegmented Neuts Not Reportable 06/15/21 04:30 Hyposegmented Neuts Not Reportable 06/15/21 04:30 Hypogranular Neuts Not Reportable 06/15/21 04:30 Smudge Cells Not Reportable 06/15/21 04:30 Toxic Granulation Not Reportable 06/15/21 04:30 Toxic Vacuolation Not Reportable 06/15/21 04:30 Dohle Bodies Not Reportable 06/15/21 04:30 Pelger-Huet Anomaly Not Reportable 06/15/21 04:30 Gui Rods Not Reportable 06/15/21 04:30 Platelet Estimate Consistent w auto 06/15/21 04:30 Clumped Platelets Not Reportable 06/15/21 04:30 Plt Clumps, EDTA Not Reportable 06/15/21 04:30 Large Platelets Not Reportable 06/15/21 04:30 Giant Platelets Not Reportable 06/15/21 04:30 Platelet Satelliting Not Reportable 06/15/21 04:30 Plt Morphology Comment Not Reportable 06/15/21 04:30 RBC Morphology Not Reportable 06/15/21 04:30 Dimorphic RBCs Not Reportable 06/15/21 04:30 Polychromasia Not Reportable 06/15/21 04:30 Hypochromasia 2+ 06/15/21 04:30 Poikilocytosis 1+ 06/15/21 04:30 Anisocytosis 2+ 06/15/21 04:30 Microcytosis 1+ 06/15/21 04:30 Macrocytosis Not Reportable 06/15/21 04:30 Spherocytes Not Reportable 06/15/21 04:30 Pappenheimer Bodies Not Reportable 06/15/21 04:30 Sickle Cells Not Reportable 06/15/21 04:30 Target Cells 1+ 06/15/21 04:30 Tear Drop Cells Not Reportable 06/15/21 04:30 Ovalocytes Not Reportable 06/15/21 04:30 Helmet Cells Not Reportable 06/15/21 04:30 [place] Bodies Not Reportable 06/15/21 04:30 [place] Rings Not Reportable 06/15/21 04:30 Anel Cells Not Reportable 06/15/21 04:30 Bite Cells Not Reportable 06/15/21 04:30 Crenated Cell Not Reportable 06/15/21 04:30 Elliptocytes Not Reportable 06/15/21 04:30 Acanthocytes (Spur) Not Reportable 06/15/21 04:30 Rouleaux Not Reportable 06/15/21 04:30 Hemoglobin C Crystals Not Reportable 06/15/21 04:30 Schistocytes Not Reportable 06/15/21 04:30 Malaria parasites Not Reportable 06/15/21 04:30 Narendra Bodies Not Reportable 06/15/21 04:30 Hem Pathologist Commnt No 06/15/21 04:30 PT 18.9 Sec. (12.2-14.9) H 06/15/21 04:30 INR 1.53 (0.87-1.13) H 06/15/21 04:30 APTT 52.6 Sec. (24.2-36.6) H 06/09/21 12:27 Fibrinogen 83 mg/dl (211-480) L* 06/09/21 12:27 ABG pH 7.419 (7.320-7.450) 06/15/21 03:39 POC ABG pCO2 21.2 mmHg (32.0-48.0) L 06/15/21 03:39 ABG pCO2 24.1 mm Hg 06/12/21 04:50 POC ABG pO2 146.6 mmHg (83-108) H 06/15/21 03:39 ABG pO2 127.8 mm Hg (80.0-90.0) H 06/12/21 04:50 POC ABG HCO3 13.4 06/15/21 03:39 ABG HCO3 13.2 mmol/L (20.0-26.0) L 06/12/21 04:50 ABG O2 Saturation 99.0 (0-100) 06/15/21 03:39 ABG O2 Content 12.0 (0.0-44) 06/12/21 04:50 POC ABG Base Excess -9.8 06/15/21 03:39 ABG Base Excess -11.0 mmol/L (-2.0-3.0) L 06/12/21 04:50 ABG Hemoglobin 8.0 (12.0-17.5) L 06/15/21 03:39 ABG Oxyhemoglobin 98.0 (94-98) 06/15/21 03:39 ABG Carboxyhemoglobin 1.4 % (0.0-5.0) 06/12/21 04:50 ABG Methemoglobin 0.3 (0.0-1.5) 06/15/21 03:39 ABG Sodium 145.2 mmol/L (136.0-145.0) H 06/15/21 03:39 ABG Potassium 3.9 mmol/L (3.40-4.50) 06/15/21 03:39 ABG Chloride 120.0 mmol/L (98-107) H 06/15/21 03:39 ABG Glucose 126 mg/dL (65-95) H 06/15/21 03:39 Oxyhemoglobin 96.6 % (95.0-99.0) 06/12/21 04:50 Carboxyhemoglobin 0.7 (0.5-1.5) 06/15/21 03:39 FiO2 30 % 06/12/21 04:50 FiO2 % 30.0 06/15/21 03:39 Sodium 147 mmol/L (137-145) H 06/16/21 06:15 Potassium 3.7 mmol/L (3.6-5.0) 06/16/21 06:15 Chloride 108.3 mmol/L (98-107) H 06/16/21 06:15 Carbon Dioxide 15 mmol/L (22-30) L 06/16/21 06:15 Anion Gap 27 mmol/L 06/16/21 06:15 BUN 82 mg/dL (7-17) H 06/16/21 06:15 Creatinine 6.6 mg/dL (0.6-1.2) H 06/16/21 06:15 Estimated GFR 8 ml/min 06/16/21 06:15 BUN/Creatinine Ratio 12 % 06/16/21 06:15 Glucose 178 mg/dL (65-100) H 06/16/21 06:15 POC Glucose 170 mg/dL (70-105) H 06/17/21 05:25 Lactic Acid 1.70 mmol/L (0.7-2.0) 06/11/21 12:12 Calcium 7.4 mg/dL (8.4-10.2) L 06/16/21 06:15 Phosphorus 6.70 mg/dL (2.5-4.5) H 06/12/21 04:03 Magnesium 1.70 mg/dL (1.7-2.3) 06/12/21 04:03 Total Bilirubin 5.30 mg/dL (0.1-1.2) H 06/16/21 06:15 AST 306 units/L (5-40) H 06/16/21 06:15 ALT 201 units/L (7-56) H 06/16/21 06:15 Alkaline Phosphatase 195 units/L (35-129) H 06/16/21 06:15 Ammonia 32.0 umol/L (25-60) 06/11/21 14:48 Lactate Dehydrogenase 2208 units/L (91-180) H 06/09/21 11:44 Troponin T < 0.010 ng/mL (0.00-0.029) 06/09/21 03:27 Total Protein 5.9 g/dL (6.3-8.2) L D 06/16/21 06:15 Albumin 2.4 g/dL (3.9-5) L 06/16/21 06:15 Albumin/Globulin Ratio 0.7 % 06/16/21 06:15 TSH 0.315 mlU/mL (0.270-4.200) 06/11/21 14:48 Arterial Blood Glucose 126 mg/dL (65-95) H 06/15/21 03:39 Arterial Blood Ionized Calcium 3.5 mg/dL (4.6-5.3) L 06/14/21 04:35 Urine Color Yellow (Yellow) 06/10/21 08:47 Urine Turbidity Cloudy (Clear) 06/10/21 08:47 Urine pH 5.0 (5.0-7.0) 06/10/21 08:47 Ur Specific [place] 1.016 (1.003-1.030) 06/10/21 08:47 Urine Protein 100 mg/dl mg/dL (Negative) 06/10/21 08:47 Urine Glucose (UA) 150 mg/dL (Negative) 06/10/21 08:47 Urine Ketones Neg mg/dL (Negative) 06/10/21 08:47 Urine Blood Lg (Negative) 06/10/21 08:47 Urine Nitrite Neg (Negative) 06/10/21 08:47 Urine Bilirubin Neg (Negative) 06/10/21 08:47 Urine Urobilinogen < 2.0 mg/dL (<2.0) 06/10/21 08:47 Ur Leukocyte Esterase Tr (Negative) 06/10/21 08:47 Urine WBC (Auto) 23.0 /HPF (0.0-6.0) H 06/10/21 08:47 Urine RBC (Auto) 67.0 /HPF (0.0-6.0) 06/10/21 08:47 U Epithel Cells (Auto) 5.0 /HPF (0-13.0) 06/10/21 08:47 Urine Bacteria (Auto) 1+ /HPF (Negative) 06/10/21 08:47 Ur Transition Epith Cell 2 /HPF 06/10/21 08:47 Hyaline Casts 1 /LPF 06/10/21 08:47 Urine Mucus Few /HPF 06/10/21 08:47 Urine Creatinine 28.0 mg/dL (0.1-20.0) H 06/13/21 00:16 Urine Sodium 109 mmol/L 06/13/21 00:16 Urine Opiates Screen Negative 06/14/21 10:00 Urine Methadone Screen Negative 06/14/21 10:00 Ur Barbiturates Screen Negative 06/14/21 10:00 Ur Phencyclidine Scrn Negative 06/14/21 10:00 Ur Amphetamines Screen Negative 06/14/21 10:00 U Benzodiazepines Scrn Positive 06/14/21 10:00 Urine Cocaine Screen Negative 06/14/21 10:00 U Marijuana (THC) Screen Positive 06/14/21 10:00 Drugs of Abuse Note Disclamer 06/14/21 10:00 Complement C3 40 mg/dL (83-193) L 06/12/21 20:15 Complement C4 4 mg/dL (15-57) L 06/12/21 20:15 Coronavirus (PCR) Negative (Negative) 06/09/21 13:12 Hepatitis A IgM Ab Non-reactive (NonReactive) 06/15/21 09:55 Hep Bs Antigen Nonreactive (Negative) 06/15/21 09:55 Hep B Core IgM Ab Non-reactive (NonReactive) 06/15/21 09:55 Hepatitis C Antibody Non-reactive (NonReactive) 06/15/21 09:55 Blood Type B POSITIVE 06/09/21 04:00 Antibody Screen Negative 06/09/21 04:00 Crossmatch See Detail 06/09/21 04:00 Microbiology: Microbiology 06/12/21 08:59 Peripheral/Venous Blood Culture - Preliminary NO GROWTH AFTER 4 DAYS 06/12/21 08:59 Peripheral/Venous Blood Culture - Preliminary NO GROWTH AFTER 4 DAYS Esparza/IV: Voiding Method Indwelling Catheter Active Medications - Current Medications Current Medications: Generic Name Dose Route Start Last Admin Trade Name Freq PRN Reason Stop Dose Admin Lipase/Protease/Amylase 1 each 06/14/21 16:23 Lipase 10,500/Protease 25,000/Amylase 43,750 (Units) Dr Aponte FEEDTUBE PRN PRN For Clogged Feeding Tube Dextrose 50 ml 06/09/21 11:13 Dextrose 50% In Water (25gm) 50 Ml Syringe IV Q30MIN PRN Hypoglycemia Protocol Fentanyl 25 mcg 06/14/21 15:21 06/15/21 10:31 Fentanyl 100 Mcg/2 Ml Inj IV 25 mcg Q4HR PRN Administration Pain, Moderate (4-6) Hydrophilic Ointment 1 applic 06/09/21 03:26 06/12/21 20:00 Lip Therapy Vaseline TP 1 applic Q2HR PRN Administration Dry Lips Sodium Chloride 100 mls @ 999 mls/hr 06/15/21 08:53 Nacl 0.9% IV BURKE PRN Hypotension Methylprednisolone Sodium 100 mls @ 200 mls/hr 06/16/21 10:00 06/16/21 09:11 Succinate 500 mg/ Sodium IV 06/17/21 10:29 200 mls/hr Chloride Q24HR GABINO Administration Multi-Ingred Cream/Lotion/Oil/Oint 1 applic 06/09/21 03:26 06/12/21 20:05 Mineral Oil/Petrolatum, White Ophth Oint 3.5 Gm OU 1 applic Q4HR PRN Administration Dry Eye(s) Pantoprazole Sodium 40 mg 06/15/21 22:00 06/16/21 22:04 Pantoprazole 40 Mg Inj IV 40 mg BID GABINO Administration Simple Syrup 15 ml 06/14/21 16:23 Simple Syrup 15 Ml FEEDTUBE PRN PRN Hypoglycemia Simple Syrup 30 ml 06/14/21 16:23 Simple Syrup 15 Ml FEEDTUBE PRN PRN Hypoglycemia Sodium Bicarbonate 325 mg 06/14/21 16:23 Sodium Bicarbonate 325 Mg Tab FEEDTUBE PRN PRN For Clogged Feeding Tube Sodium Chloride 10 ml 06/09/21 22:00 06/16/21 22:04 Sodium Chloride 0.9% 10 Ml Flush Syringe IV 10 ml BID GABINO Administration Sodium Chloride 10 ml 06/09/21 11:13 Sodium Chloride 0.9% 10 Ml Flush Syringe IV PRN PRN LINE FLUSH Nutrition/Malnutrition Assess - Dietary Evaluation Nutrition/Malnutrition Findings: Nutrition Notes Start: 06/11/21 15:21 Freq: Status: Active Protocol: Document 06/14/21 15:59 GB (Rec: 06/14/21 16:23 GB [id number]) Nutrition Notes Need for Assessment generated from: MD Order Initial or Follow up Reassessment Current Diagnosis Acute Kidney Injury, Respiratory Failure Other Pertinent Diagnosis metabolic encephalopathy, GI bleed, intubated Current Diet NPO, trickle feed TF Labs/Tests 06/14: Na 147, BUN 107, creatinine 6.8, Ca 6.7, Tbili 5, AST 578, ALT 298 Pertinent Medications reviewed Height 5 ft 3 in Weight 57.107 kg Moodus Body Weight (kg) 52.27 BMI 22.3 Weight change and time frame no changes recorded Weight Status Appropriate Subjective/Other Information intubation continues, currently sedated, GI bleed, NPO x 4days 06/14: per gastroentologist note, okay to start trial of TF. Other notes: off sedation , prepped for possible HD Percent of energy/protein needs met: currently 0% with NPO 06/14: TF Nepro goal rate of GI Symptoms Other Food Allergy No Current % PO Other Minimum of two criteria No #1 Nutrition Diagnosis Inadequate energy intake Comments: 06/13: Intubation continues, NPOx4 days 06/14: TF trial, trickle feeds started. Formula Nepro start rate 10ml/hr (meets 30% or greater estimated energy needs ) Etiology Intubated, GI Bleed As Evidenced by Signs and Symptoms NPO, intubation Diagnosis Progress(for reassessment Continues documentation) Is patient on ventilator? Yes Is Patient Ambulatory and/or Out of Bed No REE-([facility]-confined to bed) 1343.208 Kcal/Kg value to use for calculation 25 Approximate Energy Requirements Using 1428 kcal/Kg Calculation Used for Recommendations Kcal/kg Additional Notes Protein 1-1.2 g/kg @ 57k- 68g Fluids: 1 ml/kcal or per MD Nutrition Intervention Change Diet Order: Continue NPO, if extubated begin Clear liquids (no red colored clears) 06/14: Begin TF: Nepro @ 33ml/ hr: Start rate 10ml/hr advance 5ml/8hr or per tolerance to goal. Flush: 25ml/hr Nutrition Support: Nepro @ 33ml/hr: Start rate 10ml/hr advance 5ml/8hr or per tolerance to goal. Flush: 25ml/hr Kcal 1,425 Protein (gm) 64 Fat (gm) 76 Fluid (mL) 575 Goal #1 Extubate and advance diet to clear liquids 06/14: not met, continues Goal #2 If intubation continues, begin TPN post central line placement 06/14: changed, okay to start TF trial Goal #3 Tolerate TF Nepro at start rate of 10ml/hr Goal #4 Tolerate TF Nepro at goal rate of 33ml/hr Follow-Up By: 06/18/21 Additional Comments f/u: TF tolerance or extubated and diet advanced clear liquids
[2021-06-17 08:37] LABS: Calcium 7.5 mg/dL (8.4-10.2)
[2021-06-17] MEDS: PANTOPRAZOLE 40 MG INJ IV SCH ×2 (09:12→22:02)
[2021-06-17] MEDS: methylPREDNISolone Sod Suc 500 MG in SODIUM CHLORIDE 0.9% 100 ML IV SCH (09:12)
--- NOTE | 2021-06-17 11:12 | Progress Note ---
Assessment and Plan - Patient Problems (1) Acute kidney injury Current Visit: Yes Status: Acute Plan to address problem: Worsening acute kidney injury likely secondary to acute tubular necrosis in the setting of cardiac arrest and severely decreased hemoglobin levels in the setting of upper GI bleed. Urinalysis however was also concerning for evidence of microscopic hematuria and proteinuria, indicating a possible underlying glomerulonephritis picture. Given worsening renal function along with anemia and given nephritic type urine analysis will undergo further testing at this time which will include serologic markers including complement levels and ANCA vasculitis levels. Will also add an anti-GBM antibody test at this time. We will monitor closely. Both C3/C4 levels are markedly decreased. Completing third dose of pulse steroids today. Please avoid all nephrotoxins and maintain mean arterial pressures above 65 mmHg. Renal ultrasound reviewed without any acute abnormalities noted. Had second session yesterday. Orders written to transition to MWF HD schedule. (2) Cardiac arrest Onset Date: ~06/09/21 Current Visit: Yes Status: Acute Plan to address problem: With return of spontaneous circulation. Off pressor support at this time. Will monitor closely. (3) GI bleed Onset Date: ~06/09/21 Current Visit: Yes Status: Acute Qualifiers: GI bleed type/associated pathology: unspecified gastrointestinal hemorrhage type Qualified Code(s): K92.2 - Gastrointestinal hemorrhage, unspecified Plan to address problem: That is post emergent EGD showing large amount of old blood without any evidence of active bleeding sites noted. We will continue to monitor closely. Continues on on Protonix drip. Await further recommendations from gastroenterology. Overall rate of GI bleeding seems to be decreased and hemoglobin/hematocrit leve ls are stable this morning. (4) Acute respiratory failure Current Visit: Yes Status: Acute Plan to address problem: Ventilator management per pulmonology. Stable on current vent settings. Subjective Date of service: 06/17/21 Principal diagnosis: UGI bleed Interval history: No acute changes, more lethargic this am per nursing staff. Stable vent settings. Remains anuric. Had 2nd HD treatment yesterday. Plan to place on MWF HD schedule as inpatient. Objective - Vital Signs Vital signs: Vital Signs - 12hr 06/16/21 06/17/21 06/17/21 23:30 00:00 01:01 Temperature Pulse Rate 94 H 91 H 87 Respiratory 18 15 Rate Blood Pressure 129/78 118/85 129/87 O2 Sat by Pulse 99 99 98 Oximetry 06/17/21 06/17/21 06/17/21 02:00 03:00 04:00 Temperature 97.2 F L Pulse Rate 85 77 70 Respiratory 14 14 14 Rate Blood Pressure 132/85 119/79 107/70 O2 Sat by Pulse 100 100 99 Oximetry 06/17/21 06/17/21 06/17/21 05:00 06:01 07:00 Temperature 98.2 F Pulse Rate 76 93 H 80 Respiratory 15 28 H 17 Rate Blood Pressure 136/88 136/88 133/93 O2 Sat by Pulse 100 100 99 Oximetry 06/17/21 06/17/21 06/17/21 07:16 08:01 08:15 Temperature Pulse Rate 80 92 H Respiratory 26 H Rate Blood Pressure 133/93 154/97 O2 Sat by Pulse 100 95 97 Oximetry - General Appearance General appearance: chronically ill, intubated, frail EENT: ATNC Neck: no JVD Respiratory: Present: Decreased Breath Sounds Cardiology: regular Gastrointestinal: normal Musculoskeletal: deferred - Lab 06/17/21 08:00 06/17/21 08:00 Most recent lab results ABG pH 7.419 (7.320-7.450) 06/15/21 03:39 ABG pCO2 24.1 mm Hg 06/12/21 04:50 ABG pO2 127.8 mm Hg (80.0-90.0) H 06/12/21 04:50 ABG HCO3 13.2 mmol/L (20.0-26.0) L 06/12/21 04:50 ABG O2 Saturation 99.0 (0-100) 06/15/21 03:39 Calcium 7.5 mg/dL (8.4-10.2) L 06/17/21 08:00 Phosphorus 6.70 mg/dL (2.5-4.5) H 06/12/21 04:03 Magnesium 1.70 mg/dL (1.7-2.3) 06/12/21 04:03 Urine Creatinine 28.0 mg/dL (0.1-20.0) H 06/13/21 00:16 Urine Sodium 109 mmol/L 06/13/21 00:16 - Allied health notes Allied health notes reviewed: nursing Medications & Allergies - Medications Allergies/Adverse Reactions: Allergies No Known Allergies Allergy (Verified 05/22/16 22:45) Home Medications: Home Medications Medication Instructions Recorded Confirmed Last Taken Type No Known Home Medications [No 06/09/21 06/09/21 Unknown History Reported Home Medications] Active Medications: Generic Name Dose Route Start Last Admin Trade Name Freq PRN Reason Stop Dose Admin Lipase/Protease/Amylase 1 each 06/14/21 16:23 Lipase 10,500/Protease 25,000/Amylase 43,750 (Units) Dr Aponte FEEDTUBE PRN PRN For Clogged Feeding Tube Dextrose 50 ml 06/09/21 11:13 Dextrose 50% In Water (25gm) 50 Ml Syringe IV Q30MIN PRN Hypoglycemia Protocol Fentanyl 25 mcg 06/14/21 15:21 06/15/21 10:31 Fentanyl 100 Mcg/2 Ml Inj IV 25 mcg Q4HR PRN Administration Pain, Moderate (4-6) Hydrophilic Ointment 1 applic 06/09/21 03:26 06/12/21 20:00 Lip Therapy Vaseline TP 1 applic Q2HR PRN Administration Dry Lips Sodium Chloride 100 mls @ 999 mls/hr 06/15/21 08:53 Nacl 0.9% IV BURKE PRN Hypotension Multi-Ingred Cream/Lotion/Oil/Oint 1 applic 06/09/21 03:26 06/12/21 20:05 Mineral Oil/Petrolatum, White Ophth Oint 3.5 Gm OU 1 applic Q4HR PRN Administration Dry Eye(s) Pantoprazole Sodium 40 mg 06/15/21 22:00 06/17/21 09:12 Pantoprazole 40 Mg Inj IV 40 mg BID GABINO Administration Simple Syrup 15 ml 06/14/21 16:23 Simple Syrup 15 Ml FEEDTUBE PRN PRN Hypoglycemia Simple Syrup 30 ml 06/14/21 16:23 Simple Syrup 15 Ml FEEDTUBE PRN PRN Hypoglycemia Sodium Bicarbonate 325 mg 06/14/21 16:23 Sodium Bicarbonate 325 Mg Tab FEEDTUBE PRN PRN For Clogged Feeding Tube Sodium Chloride 10 ml 06/09/21 22:00 06/17/21 09:13 Sodium Chloride 0.9% 10 Ml Flush Syringe IV 10 ml BID GABINO Administration Sodium Chloride 10 ml 06/09/21 11:13 Sodium Chloride 0.9% 10 Ml Flush Syringe IV PRN PRN LINE FLUSH
[2021-06-17] MEDS ORDERED: SODIUM CHLORIDE 0.9% 100 ML IV PRN (11:14)
--- NOTE | 2021-06-17 22:55 | Progress Note ---
Assessment and Plan Imp: 1. UGIB 2. S/p CP arrest 3. Encephalopathy, ? anoxic 4. Acute respiratory failure, hypoxia 5. PEG Rec: 1. Tolerating SBT but mentation precludes extubation; avoid sedation 2. Solumedrol and HD per renal 3. PPI BID 4. SCDs, supportive care 5. Complex decision-making; prognosis guarded Subjective Date of service: 06/17/21 Principal diagnosis: UGI bleed Interval history: No events. Off sedation. Opens eyes but does not follow commands or track for me. Tolerating SBT. Active Medications Lipase/Protease/Amylase (Lipase 10,500/Protease 25,000/Amylase 43,750 (Units) Dr Aponte) 1 each FEEDTUBE PRN PRN PRN Reason: For Clogged Feeding Tube Dextrose (Dextrose 50% In Water (25gm) 50 Ml Syringe) 50 ml IV Q30MIN PRN; P rotocol PRN Reason: Hypoglycemia Fentanyl (Fentanyl 100 Mcg/2 Ml Inj) 25 mcg IV Q4HR PRN PRN Reason: Pain, Moderate (4-6) Last Admin: 06/15/21 10:31 Dose: 25 mcg Documented by: Hydrophilic Ointment (Lip Therapy Vaseline) 1 applic TP Q2HR PRN PRN Reason: Dry Lips Last Admin: 06/12/21 20:00 Dose: 1 applic Documented by: Sodium Chloride (Nacl 0.9%) 100 mls @ 999 mls/hr IV BURKE PRN PRN Reason: Hypotension Multi-Ingred Cream/Lotion/Oil/Oint (Mineral Oil/Petrolatum, White Ophth Oint 3.5 Gm) 1 applic OU Q4HR PRN PRN Reason: Dry Eye(s) Last Admin: 06/12/21 20:05 Dose: 1 applic Documented by: Pantoprazole Sodium (Pantoprazole 40 Mg Inj) 40 mg IV BID GABINO Last Admin: 06/17/21 22:02 Dose: 40 mg Documented by: Simple Syrup (Simple Syrup 15 Ml) 15 ml FEEDTUBE PRN PRN PRN Reason: Hypoglycemia Simple Syrup (Simple Syrup 15 Ml) 30 ml FEEDTUBE PRN PRN PRN Reason: Hypoglycemia Sodium Bicarbonate (Sodium Bicarbonate 325 Mg Tab) 325 mg FEEDTUBE PRN PRN PRN Reason: For Clogged Feeding Tube Sodium Chloride (Sodium Chloride 0.9% 10 Ml Flush Syringe) 10 ml IV BID GABINO Last Admin: 06/17/21 22:02 Dose: 10 ml Documented by: Sodium Chloride (Sodium Chloride 0.9% 10 Ml Flush Syringe) 10 ml IV PRN PRN PRN Reason: LINE FLUSH Objective Vital Signs - 12hr 06/17/21 06/17/21 06/17/21 11:00 11:55 12:00 Temperature Pulse Rate 91 H 91 H 90 Pulse Rate [ From Monitor] Respiratory 25 H 27 H 25 H Rate Blood Pressure 134/93 146/99 146/99 O2 Sat by Pulse 96 98 96 Oximetry 06/17/21 06/17/21 06/17/21 12:05 13:00 14:00 Temperature Pulse Rate 92 H 91 H Pulse Rate [ From Monitor] Respiratory 25 H 27 H Rate Blood Pressure 152/98 145/96 O2 Sat by Pulse 96 97 99 Oximetry 06/17/21 06/17/21 06/17/21 15:00 15:45 16:00 Temperature Pulse Rate 96 H 92 H 93 H Pulse Rate [ From Monitor] Respiratory 27 H 30 H Rate Blood Pressure 159/101 160/101 170/98 O2 Sat by Pulse 99 98 99 Oximetry 06/17/21 06/17/21 06/17/21 16:10 17:00 17:28 Temperature 97.3 F L Pulse Rate 92 H Pulse Rate [ From Monitor] Respiratory 19 Rate Blood Pressure 137/96 O2 Sat by Pulse 98 98 Oximetry 06/17/21 06/17/21 06/17/21 18:00 19:00 19:50 Temperature Pulse Rate 89 87 89 Pulse Rate [ From Monitor] Respiratory 20 18 Rate Blood Pressure 151/96 150/98 150/98 O2 Sat by Pulse 97 98 98 Oximetry 06/17/21 20:00 Temperature 97.2 F L Pulse Rate 88 Pulse Rate [ 93 H From Monitor] Respiratory 19 Rate Blood Pressure 149/95 O2 Sat by Pulse 98 Oximetry Constitutional: other (intubated, critically ill) Eyes: non-icteric Neck: supple Effort: normal Ascultation: Bilateral: other Cardiovascular: regular rate and rhythm (no mrg) Gastrointestinal: normoactive bowel sounds, soft, non-tender, non-distended Integumentary: normal Extremities: no cyanosis, no edema, pink and warm Neurologic: other (unresponsive) Psychiatric: other (unable to assess) CBC and BMP: 06/17/21 08:00 06/17/21 08:00 ABG, PT/INR, D-dimer: ABG ABG pH 7.419 (7.320-7.450) 06/15/21 03:39 POC ABG pCO2 21.2 mmHg (32.0-48.0) L 06/15/21 03:39 ABG pCO2 24.1 mm Hg 06/12/21 04:50 POC ABG pO2 146.6 mmHg (83-108) H 06/15/21 03:39 ABG pO2 127.8 mm Hg (80.0-90.0) H 06/12/21 04:50 POC ABG HCO3 13.4 06/15/21 03:39 ABG O2 Saturation 99.0 (0-100) 06/15/21 03:39 PT/INR, D-dimer PT 18.9 Sec. (12.2-14.9) H 06/15/21 04:30 INR 1.53 (0.87-1.13) H 06/15/21 04:30 Abnormal lab findings: Abnormal Labs 06/09/21 06/09/21 06/09/21 03:27 03:42 03:59 WBC RBC 1.57 L Hgb 3.0 L* Hct 11.8 L* MCV 75 L MCH 19 L MCHC 26 L RDW 21.7 H Plt Count 109 L Lymph % (Auto) 9.7 L [place] % (Auto) 8.5 H Lymph # (Auto) 0.9 L [place] # (Auto) Seg Neutrophils % 81.2 H Seg Neuts % (Manual) Lymphocytes % (Manual) Nucleated RBC % Seg Neutrophils # Seg Neutrophils # Man Lymphocytes # (Manual) PT INR APTT Fibrinogen ABG pH POC ABG pCO2 POC ABG pO2 ABG pO2 ABG HCO3 ABG Base Excess ABG Hemoglobin ABG Oxyhemoglobin ABG Sodium ABG Potassium ABG Chloride ABG Glucose Carboxyhemoglobin Sodium Potassium Chloride 95.2 L Carbon Dioxide 8 L* BUN 18 H Creatinine Glucose 540 H* POC Glucose Lactic Acid 28.20 H* Calcium 11.5 H Phosphorus Magnesium Total Bilirubin AST 411 H ALT 106 H Alkaline Phosphatase Lactate Dehydrogenase Total Protein 4.9 L Albumin 2.4 L Arterial Blood Glucose Arterial Blood Ionized Calcium Urine WBC (Auto) Urine Creatinine Complement C3 Complement C4 Crossmatch 06/09/21 06/09/21 06/09/21 03:59 04:00 04:04 WBC RBC Hgb Hct MCV MCH MCHC RDW Plt Count Lymph % (Auto) [place] % (Auto) Lymph # (Auto) [place] # (Auto) Seg Neutrophils % Seg Neuts % (Manual) Lymphocytes % (Manual) Nucleated RBC % Seg Neutrophils # Seg Neutrophils # Man Lymphocytes # (Manual) PT 34.3 H INR 3.36 H APTT 66.3 H* Fibrinogen ABG pH 6.845 L POC ABG pCO2 POC ABG pO2 116.6 H ABG pO2 ABG HCO3 ABG Base Excess ABG Hemoglobin 2.6 L ABG Oxyhemoglobin 90.6 L ABG Sodium ABG Potassium 3.0 L ABG Chloride ABG Glucose 334 H Carboxyhemoglobin 1.8 H Sodium Potassium Chloride Carbon Dioxide BUN Creatinine Glucose POC Glucose Lactic Acid Calcium Phosphorus Magnesium Total Bilirubin AST ALT Alkaline Phosphatase Lactate Dehydrogenase Total Protein Albumin Arterial Blood Glucose 334 H Arterial Blood Ionized Calcium Urine WBC (Auto) Urine Creatinine Complement C3 Complement C4 Crossmatch See Detail 06/09/21 06/09/21 06/09/21 05:16 11:42 11:44 WBC RBC Hgb Hct MCV MCH MCHC RDW Plt Count Lymph % (Auto) [place] % (Auto) Lymph # (Auto) [place] # (Auto) Seg Neutrophils % Seg Neuts % (Manual) Lymphocytes % (Manual) Nucleated RBC % Seg Neutrophils # Seg Neutrophils # Man Lymphocytes # (Manual) PT INR APTT Fibrinogen ABG pH POC ABG pCO2 POC ABG pO2 ABG pO2 ABG HCO3 ABG Base Excess ABG Hemoglobin ABG Oxyhemoglobin ABG Sodium ABG Potassium ABG Chloride ABG Glucose Carboxyhemoglobin Sodium Potassium Chloride 109.5 H Carbon Dioxide 4 L* BUN 19 H Creatinine Glucose 158 H POC Glucose 191 H Lactic Acid 25.20 H* Calcium 7.8 L D Phosphorus Magnesium Total Bilirubin AST ALT Alkaline Phosphatase Lactate Dehydrogenase 2208 H Total Protein Albumin Arterial Blood Glucose Arterial Blood Ionized Calcium Urine WBC (Auto) Urine Creatinine Complement C3 Complement C4 Crossmatch 06/09/21 06/09/21 06/10/21 12:27 12:27 04:21 WBC 14.2 H RBC 3.58 L Hgb 8.9 L D Hct 29.9 L D MCV MCH 25 L MCHC RDW 22.0 H Plt Count 94 L Lymph % (Auto) [place] % (Auto) Lymph # (Auto) [place] # (Auto) Seg Neutrophils % Seg Neuts % (Manual) 87.0 H Lymphocytes % (Manual) 5.0 L Nucleated RBC % Seg Neutrophils # Seg Neutrophils # Man 12.4 H Lymphocytes # (Manual) 0.7 L PT 36.0 H INR 3.58 H APTT 52.6 H Fibrinogen 83 L* ABG pH 7.323 L POC ABG pCO2 POC ABG pO2 ABG pO2 152.9 H ABG HCO3 12.6 L ABG Base Excess -12.0 L ABG Hemoglobin 9.2 L ABG Oxyhemoglobin ABG Sodium ABG Potassium ABG Chloride ABG Glucose Carboxyhemoglobin Sodium Potassium Chloride Carbon Dioxide BUN Creatinine Glucose POC Glucose Lactic Acid Calcium Phosphorus Magnesium Total Bilirubin AST ALT Alkaline Phosphatase Lactate Dehydrogenase Total Protein Albumin Arterial Blood Glucose Arterial Blood Ionized Calcium Urine WBC (Auto) Urine Creatinine Complement C3 Complement C4 Crossmatch 06/10/21 06/10/21 06/10/21 04:27 04:27 06:59 WBC 14.1 H RBC Hgb Hct MCV MCH 25 L MCHC RDW 20.0 H Plt Count 99 L Lymph % (Auto) 4.2 L [place] % (Auto) 8.6 H Lymph # (Auto) 0.6 L [place] # (Auto) 1.2 H Seg Neutrophils % 86.6 H Seg Neuts % (Manual) Lymphocytes % (Manual) Nucleated RBC % Seg Neutrophils # 12.2 H Seg Neutrophils # Man Lymphocytes # (Manual) PT INR APTT Fibrinogen ABG pH POC ABG pCO2 POC ABG pO2 ABG pO2 ABG HCO3 ABG Base Excess ABG Hemoglobin ABG Oxyhemoglobin ABG Sodium ABG Potassium ABG Chloride ABG Glucose Carboxyhemoglobin Sodium 146 H Potassium 3.4 L Chloride 115.2 H Carbon Dioxide 14 L D BUN 30 H Creatinine 1.9 H D Glucose 122 H POC Glucose Lactic Acid 4.60 H* Calcium 7.4 L Phosphorus Magnesium Total Bilirubin 7.00 H AST 2708 H ALT 522 H Alkaline Phosphatase Lactate Dehydrogenase Total Protein 4.8 L Albumin 2.4 L Arterial Blood Glucose Arterial Blood Ionized Calcium Urine WBC (Auto) Urine Creatinine Complement C3 Complement C4 Crossmatch 06/10/21 06/10/21 06/10/21 06:59 08:23 08:47 WBC RBC Hgb Hct MCV MCH MCHC RDW Plt Count Lymph % (Auto) [place] % (Auto) Lymph # (Auto) [place] # (Auto) Seg Neutrophils % Seg Neuts % (Manual) Lymphocytes % (Manual) Nucleated RBC % Seg Neutrophils # Seg Neutrophils # Man Lymphocytes # (Manual) PT 26.8 H INR 2.42 H APTT Fibrinogen ABG pH POC ABG pCO2 POC ABG pO2 ABG pO2 ABG HCO3 ABG Base Excess ABG Hemoglobin ABG Oxyhemoglobin ABG Sodium ABG Potassium ABG Chloride ABG Glucose Carboxyhemoglobin Sodium Potassium Chloride Carbon Dioxide BUN Creatinine Glucose POC Glucose 121 H Lactic Acid Calcium Phosphorus Magnesium Total Bilirubin AST ALT Alkaline Phosphatase Lactate Dehydrogenase Total Protein Albumin Arterial Blood Glucose Arterial Blood Ionized Calcium Urine WBC (Auto) 23.0 H Urine Creatinine Complement C3 Complement C4 Crossmatch 06/10/21 06/10/21 06/11/21 11:47 23:46 03:52 WBC RBC Hgb Hct MCV MCH MCHC RDW Plt Count Lymph % (Auto) [place] % (Auto) Lymph # (Auto) [place] # (Auto) Seg Neutrophils % Seg Neuts % (Manual) Lymphocytes % (Manual) Nucleated RBC % Seg Neutrophils # Seg Neutrophils # Man Lymphocytes # (Manual) PT INR APTT Fibrinogen ABG pH POC ABG pCO2 POC ABG pO2 ABG pO2 148.9 H ABG HCO3 13.0 L ABG Base Excess -10.1 L ABG Hemoglobin 9.1 L ABG Oxyhemoglobin ABG Sodium ABG Potassium ABG Chloride ABG Glucose Carboxyhemoglobin Sodium Potassium Chloride Carbon Dioxide BUN Creatinine Glucose POC Glucose Lactic Acid 4.40 H* 3.30 H* Calcium Phosphorus Magnesium Total Bilirubin AST ALT Alkaline Phosphatase Lactate Dehydrogenase Total Protein Albumin Arterial Blood Glucose Arterial Blood Ionized Calcium Urine WBC (Auto) Urine Creatinine Complement C3 Complement C4 Crossmatch 06/11/21 06/11/21 06/11/21 05:05 10:38 10:38 WBC 12.6 H RBC 3.38 L Hgb 8.5 L Hct 26.3 L MCV 78 L MCH 25 L MCHC RDW 20.6 H Plt Count 97 L Lymph % (Auto) [place] % (Auto) Lymph # (Auto) [place] # (Auto) Seg Neutrophils % Seg Neuts % (Manual) Lymphocytes % (Manual) Nucleated RBC % Seg Neutrophils # Seg Neutrophils # Man Lymphocytes # (Manual) PT 23.1 H INR 1.98 H APTT Fibrinogen ABG pH POC ABG pCO2 POC ABG pO2 ABG pO2 ABG HCO3 ABG Base Excess ABG Hemoglobin ABG Oxyhemoglobin ABG Sodium ABG Potassium ABG Chloride ABG Glucose Carboxyhemoglobin Sodium Potassium Chloride Carbon Dioxide BUN Creatinine Glucose POC Glucose Lactic Acid 2.40 H* Calcium Phosphorus Magnesium Total Bilirubin AST ALT Alkaline Phosphatase Lactate Dehydrogenase Total Protein Albumin Arterial Blood Glucose Arterial Blood Ionized Calcium Urine WBC (Auto) Urine Creatinine Complement C3 Complement C4 Crossmatch 06/11/21 06/11/21 06/11/21 10:38 10:38 12:15 WBC RBC Hgb Hct MCV MCH MCHC RDW Plt Count Lymph % (Auto) [place] % (Auto) Lymph # (Auto) [place] # (Auto) Seg Neutrophils % Seg Neuts % (Manual) Lymphocytes % (Manual) Nucleated RBC % Seg Neutrophils # Seg Neutrophils # Man Lymphocytes # (Manual) PT INR APTT Fibrinogen ABG pH POC ABG pCO2 POC ABG pO2 ABG pO2 ABG HCO3 ABG Base Excess ABG Hemoglobin ABG Oxyhemoglobin ABG Sodium ABG Potassium ABG Chloride ABG Glucose Carboxyhemoglobin Sodium 147 H Potassium Chloride 118.1 H Carbon Dioxide 11 L BUN 53 H Creatinine 3.2 H D Glucose 104 H POC Glucose Lactic Acid 2.30 H* Calcium 5.9 L* D 5.9 L* Phosphorus 7.10 H Magnesium 1.60 L Total Bilirubin 4.20 H AST 2252 H ALT 540 H Alkaline Phosphatase Lactate Dehydrogenase Total Protein 4.4 L Albumin 2.2 L Arterial Blood Glucose Arterial Blood Ionized Calcium Urine WBC (Auto) Urine Creatinine Complement C3 Complement C4 Crossmatch 06/11/21 06/11/21 06/12/21 14:48 17:45 04:03 WBC 14.7 H RBC Hgb 8.9 L 9.4 L 9.2 L Hct 29.6 L 28.6 L 28.0 L MCV 77 L MCH 25 L MCHC RDW 21.2 H Plt Count 112 L Lymph % (Auto) 5.4 L [place] % (Auto) 8.6 H Lymph # (Auto) 0.8 L [place] # (Auto) 1.3 H Seg Neutrophils % 85.8 H Seg Neuts % (Manual) Lymphocytes % (Manual) Nucleated RBC % Seg Neutrophils # 12.6 H Seg Neutrophils # Man Lymphocytes # (Manual) PT INR APTT Fibrinogen ABG pH POC ABG pCO2 POC ABG pO2 ABG pO2 ABG HCO3 ABG Base Excess ABG Hemoglobin ABG Oxyhemoglobin ABG Sodium ABG Potassium ABG Chloride ABG Glucose Carboxyhemoglobin Sodium Potassium Chloride Carbon Dioxide BUN Creatinine Glucose POC Glucose Lactic Acid Calcium Phosphorus Magnesium Total Bilirubin AST ALT Alkaline Phosphatase Lactate Dehydrogenase Total Protein Albumin Arterial Blood Glucose Arterial Blood Ionized Calcium Urine WBC (Auto) Urine Creatinine Complement C3 Complement C4 Crossmatch 06/12/21 06/12/21 06/12/21 04:03 04:03 04:50 WBC RBC Hgb Hct MCV MCH MCHC RDW Plt Count Lymph % (Auto) [place] % (Auto) Lymph # (Auto) [place] # (Auto) Seg Neutrophils % Seg Neuts % (Manual) Lymphocytes % (Manual) Nucleated RBC % Seg Neutrophils # Seg Neutrophils # Man Lymphocytes # (Manual) PT 24.1 H INR 2.10 H APTT Fibrinogen ABG pH POC ABG pCO2 POC ABG pO2 ABG pO2 127.8 H ABG HCO3 13.2 L ABG Base Excess -11.0 L ABG Hemoglobin 8.6 L ABG Oxyhemoglobin ABG Sodium ABG Potassium ABG Chloride ABG Glucose Carboxyhemoglobin Sodium 148 H Potassium Chloride 117.8 H Carbon Dioxide 17 L BUN 72 H Creatinine 4.6 H Glucose POC Glucose Lactic Acid Calcium 6.1 L Phosphorus 6.70 H Magnesium Total Bilirubin 3.40 H AST 1494 H ALT 512 H Alkaline Phosphatase Lactate Dehydrogenase Total Protein 4.4 L Albumin 2.2 L Arterial Blood Glucose Arterial Blood Ionized Calcium Urine WBC (Auto) Urine Creatinine Complement C3 Complement C4 Crossmatch 06/12/21 06/12/21 06/13/21 20:15 20:15 00:16 WBC RBC Hgb Hct MCV MCH MCHC RDW Plt Count Lymph % (Auto) [place] % (Auto) Lymph # (Auto) [place] # (Auto) Seg Neutrophils % Seg Neuts % (Manual) Lymphocytes % (Manual) Nucleated RBC % Seg Neutrophils # Seg Neutrophils # Man Lymphocytes # (Manual) PT INR APTT Fibrinogen ABG pH POC ABG pCO2 POC ABG pO2 ABG pO2 ABG HCO3 ABG Base Excess ABG Hemoglobin ABG Oxyhemoglobin ABG Sodium ABG Potassium ABG Chloride ABG Glucose Carboxyhemoglobin Sodium Potassium Chloride Carbon Dioxide BUN Creatinine Glucose POC Glucose Lactic Acid Calcium Phosphorus Magnesium Total Bilirubin AST ALT Alkaline Phosphatase Lactate Dehydrogenase Total Protein Albumin Arterial Blood Glucose Arterial Blood Ionized Calcium Urine WBC (Auto) Urine Creatinine 28.0 H Complement C3 40 L Complement C4 4 L Crossmatch 06/13/21 06/13/21 06/13/21 04:00 08:11 08:11 WBC RBC 3.51 L Hgb 8.9 L Hct 26.2 L MCV 75 L MCH 25 L MCHC RDW 21.3 H Plt Count 96 L Lymph % (Auto) [place] % (Auto) Lymph # (Auto) [place] # (Auto) Seg Neutrophils % Seg Neuts % (Manual) Lymphocytes % (Manual) Nucleated RBC % Seg Neutrophils # Seg Neutrophils # Man Lymphocytes # (Manual) PT INR APTT Fibrinogen ABG pH POC ABG pCO2 22.8 L POC ABG pO2 115.7 H ABG pO2 ABG HCO3 ABG Base Excess ABG Hemoglobin 7.2 L ABG Oxyhemoglobin ABG Sodium ABG Potassium ABG Chloride 119.0 H ABG Glucose 102 H Carboxyhemoglobin Sodium 147 H Potassium Chloride 117.2 H Carbon Dioxide 15 L BUN 96 H Creatinine 6.1 H Glucose 107 H POC Glucose Lactic Acid Calcium 6.2 L Phosphorus Magnesium Total Bilirubin AST ALT Alkaline Phosphatase Lactate Dehydrogenase Total Protein Albumin Arterial Blood Glucose 102 H Arterial Blood Ionized Calcium Urine WBC (Auto) Urine Creatinine Complement C3 Complement C4 Crossmatch 06/13/21 06/13/21 06/14/21 12:54 14:17 04:35 WBC RBC Hgb Hct MCV MCH MCHC RDW Plt Count Lymph % (Auto) [place] % (Auto) Lymph # (Auto) [place] # (Auto) Seg Neutrophils % Seg Neuts % (Manual) Lymphocytes % (Manual) Nucleated RBC % Seg Neutrophils # Seg Neutrophils # Man Lymphocytes # (Manual) PT 18.2 H INR 1.44 H APTT Fibrinogen ABG pH 7.507 H POC ABG pCO2 15.9 L POC ABG pO2 121.2 H ABG pO2 ABG HCO3 ABG Base Excess ABG Hemoglobin 6.3 L ABG Oxyhemoglobin ABG Sodium ABG Potassium ABG Chloride 119.0 H ABG Glucose Carboxyhemoglobin Sodium Potassium Chloride Carbon Dioxide BUN Creatinine Glucose POC Glucose 107 H Lactic Acid Calcium Phosphorus Magnesium Total Bilirubin AST ALT Alkaline Phosphatase Lactate Dehydrogenase Total Protein Albumin Arterial Blood Glucose Arterial Blood Ionized Calcium 3.5 L Urine WBC (Auto) Urine Creatinine Complement C3 Complement C4 Crossmatch 06/14/21 06/14/21 06/14/21 08:45 08:45 08:45 WBC RBC Hgb 9.3 L Hct 27.6 L MCV 75 L MCH 25 L MCHC RDW 21.9 H Plt Count 137 L Lymph % (Auto) [place] % (Auto) Lymph # (Auto) [place] # (Auto) Seg Neutrophils % Seg Neuts % (Manual) Lymphocytes % (Manual) Nucleated RBC % Seg Neutrophils # Seg Neutrophils # Man Lymphocytes # (Manual) PT 16.8 H INR 1.30 H APTT Fibrinogen ABG pH POC ABG pCO2 POC ABG pO2 ABG pO2 ABG HCO3 ABG Base Excess ABG Hemoglobin ABG Oxyhemoglobin ABG Sodium ABG Potassium ABG Chloride ABG Glucose Carboxyhemoglobin Sodium 147 H Potassium Chloride 115.5 H Carbon Dioxide 15 L BUN 107 H Creatinine 6.8 H Glucose POC Glucose Lactic Acid Calcium 6.7 L Phosphorus Magnesium Total Bilirubin 5.00 H AST 578 H ALT 298 H Alkaline Phosphatase Lactate Dehydrogenase Total Protein 5.6 L D Albumin 2.3 L Arterial Blood Glucose Arterial Blood Ionized Calcium Urine WBC (Auto) Urine Creatinine Complement C3 Complement C4 Crossmatch 06/14/21 06/15/21 06/15/21 23:31 03:39 04:30 WBC 11.2 H RBC 3.05 L Hgb 7.5 L Hct 23.3 L MCV 76 L MCH 25 L MCHC RDW 23.1 H Plt Count 109 L Lymph % (Auto) [place] % (Auto) Lymph # (Auto) [place] # (Auto) Seg Neutrophils % Seg Neuts % (Manual) 90.0 H Lymphocytes % (Manual) 2.0 L Nucleated RBC % 1.0 H Seg Neutrophils # Seg Neutrophils # Man 10.1 H Lymphocytes # (Manual) 0.2 L PT INR APTT Fibrinogen ABG pH POC ABG pCO2 21.2 L POC ABG pO2 146.6 H ABG pO2 ABG HCO3 ABG Base Excess ABG Hemoglobin 8.0 L ABG Oxyhemoglobin ABG Sodium 145.2 H ABG Potassium ABG Chloride 120.0 H ABG Glucose 126 H Carboxyhemoglobin Sodium Potassium Chloride Carbon Dioxide BUN Creatinine Glucose POC Glucose 108 H Lactic Acid Calcium Phosphorus Magnesium Total Bilirubin AST ALT Alkaline Phosphatase Lactate Dehydrogenase Total Protein Albumin Arterial Blood Glucose 126 H Arterial Blood Ionized Calcium Urine WBC (Auto) Urine Creatinine Complement C3 Complement C4 Crossmatch 06/15/21 06/15/21 06/15/21 04:30 04:30 05:14 WBC RBC Hgb Hct MCV MCH MCHC RDW Plt Count Lymph % (Auto) [place] % (Auto) Lymph # (Auto) [place] # (Auto) Seg Neutrophils % Seg Neuts % (Manual) Lymphocytes % (Manual) Nucleated RBC % Seg Neutrophils # Seg Neutrophils # Man Lymphocytes # (Manual) PT 18.9 H INR 1.53 H APTT Fibrinogen ABG pH POC ABG pCO2 POC ABG pO2 ABG pO2 ABG HCO3 ABG Base Excess ABG Hemoglobin ABG Oxyhemoglobin ABG Sodium ABG Potassium ABG Chloride ABG Glucose Carboxyhemoglobin Sodium 147 H Potassium Chloride 116.5 H Carbon Dioxide 16 L BUN 121 H Creatinine 8.6 H Glucose 147 H POC Glucose 125 H Lactic Acid Calcium 6.5 L Phosphorus Magnesium Total Bilirubin 5.10 H AST 349 H ALT 214 H Alkaline Phosphatase Lactate Dehydrogenase Total Protein 4.9 L Albumin 2.0 L Arterial Blood Glucose Arterial Blood Ionized Calcium Urine WBC (Auto) Urine Creatinine Complement C3 Complement C4 Crossmatch 06/15/21 06/15/21 06/15/21 11:38 17:07 23:24 WBC RBC Hgb Hct MCV MCH MCHC RDW Plt Count Lymph % (Auto) [place] % (Auto) Lymph # (Auto) [place] # (Auto) Seg Neutrophils % Seg Neuts % (Manual) Lymphocytes % (Manual) Nucleated RBC % Seg Neutrophils # Seg Neutrophils # Man Lymphocytes # (Manual) PT INR APTT Fibrinogen ABG pH POC ABG pCO2 POC ABG pO2 ABG pO2 ABG HCO3 ABG Base Excess ABG Hemoglobin ABG Oxyhemoglobin ABG Sodium ABG Potassium ABG Chloride ABG Glucose Carboxyhemoglobin Sodium Potassium Chloride Carbon Dioxide BUN Creatinine Glucose POC Glucose 160 H 161 H 166 H Lactic Acid Calcium Phosphorus Magnesium Total Bilirubin AST ALT Alkaline Phosphatase Lactate Dehydrogenase Total Protein Albumin Arterial Blood Glucose Arterial Blood Ionized Calcium Urine WBC (Auto) Urine Creatinine Complement C3 Complement C4 Crossmatch 06/16/21 06/16/21 06/16/21 05:47 06:15 06:15 WBC 12.2 H RBC 3.42 L Hgb 8.6 L Hct 25.7 L MCV 75 L MCH 25 L MCHC RDW 22.6 H Plt Count 121 L Lymph % (Auto) [place] % (Auto) Lymph # (Auto) [place] # (Auto) Seg Neutrophils % Seg Neuts % (Manual) Lymphocytes % (Manual) Nucleated RBC % Seg Neutrophils # Seg Neutrophils # Man Lymphocytes # (Manual) PT INR APTT Fibrinogen ABG pH POC ABG pCO2 POC ABG pO2 ABG pO2 ABG HCO3 ABG Base Excess ABG Hemoglobin ABG Oxyhemoglobin ABG Sodium ABG Potassium ABG Chloride ABG Glucose Carboxyhemoglobin Sodium 147 H Potassium Chloride 108.3 H Carbon Dioxide 15 L BUN 82 H Creatinine 6.6 H Glucose 178 H POC Glucose 136 H Lactic Acid Calcium 7.4 L Phosphorus Magnesium Total Bilirubin 5.30 H AST 306 H ALT 201 H Alkaline Phosphatase 195 H Lactate Dehydrogenase Total Protein 5.9 L D Albumin 2.4 L Arterial Blood Glucose Arterial Blood Ionized Calcium Urine WBC (Auto) Urine Creatinine Complement C3 Complement C4 Crossmatch 06/16/21 06/16/21 06/16/21 11:41 18:23 23:40 WBC RBC Hgb Hct MCV MCH MCHC RDW Plt Count Lymph % (Auto) [place] % (Auto) Lymph # (Auto) [place] # (Auto) Seg Neutrophils % Seg Neuts % (Manual) Lymphocytes % (Manual) Nucleated RBC % Seg Neutrophils # Seg Neutrophils # Man Lymphocytes # (Manual) PT INR APTT Fibrinogen ABG pH POC ABG pCO2 POC ABG pO2 ABG pO2 ABG HCO3 ABG Base Excess ABG Hemoglobin ABG Oxyhemoglobin ABG Sodium ABG Potassium ABG Chloride ABG Glucose Carboxyhemoglobin Sodium Potassium Chloride Carbon Dioxide BUN Creatinine Glucose POC Glucose 169 H 172 H 161 H Lactic Acid Calcium Phosphorus Magnesium Total Bilirubin AST ALT Alkaline Phosphatase Lactate Dehydrogenase Total Protein Albumin Arterial Blood Glucose Arterial Blood Ionized Calcium Urine WBC (Auto) Urine Creatinine Complement C3 Complement C4 Crossmatch 06/17/21 06/17/21 06/17/21 05:25 08:00 08:00 WBC 17.4 H RBC 3.62 L Hgb 9.1 L Hct 27.1 L MCV 75 L MCH 25 L MCHC RDW 22.8 H Plt Count Lymph % (Auto) [place] % (Auto) Lymph # (Auto) [place] # (Auto) Seg Neutrophils % Seg Neuts % (Manual) Lymphocytes % (Manual) Nucleated RBC % Seg Neutrophils # Seg Neutrophils # Man Lymphocytes # (Manual) PT INR APTT Fibrinogen ABG pH POC ABG pCO2 POC ABG pO2 ABG pO2 ABG HCO3 ABG Base Excess ABG Hemoglobin ABG Oxyhemoglobin ABG Sodium ABG Potassium ABG Chloride ABG Glucose Carboxyhemoglobin Sodium Potassium 3.5 L Chloride Carbon Dioxide BUN 51 H Creatinine 4.2 H Glucose 182 H POC Glucose 170 H Lactic Acid Calcium 7.5 L Phosphorus Magnesium Total Bilirubin AST ALT Alkaline Phosphatase Lactate Dehydrogenase Total Protein Albumin Arterial Blood Glucose Arterial Blood Ionized Calcium Urine WBC (Auto) Urine Creatinine Complement C3 Complement C4 Crossmatch 06/17/21 06/17/21 11:24 17:13 WBC RBC Hgb Hct MCV MCH MCHC RDW Plt Count Lymph % (Auto) [place] % (Auto) Lymph # (Auto) [place] # (Auto) Seg Neutrophils % Seg Neuts % (Manual) Lymphocytes % (Manual) Nucleated RBC % Seg Neutrophils # Seg Neutrophils # Man Lymphocytes # (Manual) PT INR APTT Fibrinogen ABG pH POC ABG pCO2 POC ABG pO2 ABG pO2 ABG HCO3 ABG Base Excess ABG Hemoglobin ABG Oxyhemoglobin ABG Sodium ABG Potassium ABG Chloride ABG Glucose Carboxyhemoglobin Sodium Potassium Chloride Carbon Dioxide BUN Creatinine Glucose POC Glucose 164 H 186 H Lactic Acid Calcium Phosphorus Magnesium Total Bilirubin AST ALT Alkaline Phosphatase Lactate Dehydrogenase Total Protein Albumin Arterial Blood Glucose Arterial Blood Ionized Calcium Urine WBC (Auto) Urine Creatinine Complement C3 Complement C4 Crossmatch Chest x-ray: report reviewed, image reviewed Allied health notes reviewed: nursing
--- NOTE | 2021-06-18 03:45 | XRay Report ---
CHEST 1 VIEW INDICATION / CLINICAL INFORMATION: Respiratory distress FINDINGS: SUPPORT DEVICES: No significant change in position. HEART / MEDIASTINUM: The cardiomediastinal silhouette has not significantly changed in the interim. LUNGS / PLEURA: No change from 06/16/2021. Signer Name: Howard Donovan MD Signed: 06/18/2021 3:40 AM Workstation Name: [id number]
[2021-06-18 04:49] LABS: Hematocrit 26.7 % (30.3-42.9); Hemoglobin 8.8 gm/dl (10.1-14.3); Mean Corpuscular HGB Conc 33 % (30-34); Mean Corpuscular Volume 76 fl (79-97); Platelet Count 136 K/mm3 (140-440); Red Blood Count 3.51 M/mm3 (3.65-5.03)
[2021-06-18 04:52] LABS: Red Cell Distribution Width 22.7 % (13.2-15.2)
[2021-06-18 05:06] LABS: INR 1.26 (0.87-1.13)
[2021-06-18 05:18] LABS: Calcium 7.9 mg/dL (8.4-10.2)
[2021-06-18] MEDS: PANTOPRAZOLE 40 MG INJ IV SCH ×2 (10:34→21:04)
[2021-06-18] MEDS: amLODIPine 5 MG TAB PO SCH (10:34)
--- NOTE | 2021-06-18 10:44 | Progress Note ---
Assessment and Plan 60 y/o female with cardiac arrest, intubated found to have UPPER GI bleed but no exact source of bleeding found 06/18/21: Check UDS today. Will speak with renal about overall perspective on prognosis. Will need neurology to weigh in again as we need to speak to the family soon about goals of care. Continue supportive measures. 06/15/21: Hold on checking UDS today given that dialysis will start today. Steroids today. Monitor blood sugars. Await neurology input in regards to MRI reading. Patient was hypoglycemic on admission (20). MRI mentions that hypoglycemia could cause current presentation seen on MRI. Sugars have been stable since admission. Ok with increasing tube feeds as she tolerated trickle feeds. HgB at 7.5 this am. No evidence of acute bleed. repeat tomorrow and if less than 7 then transfuse. If large drop then would need to reconsult GI. Guarded prognosis. 06/14/21: UDS still positive for benzo's. Spoke with renal and went ahead and put HD catheter in (spoke with all of family on speaker phone) in anticipation of possible HD. Will check daily UDS until clear as this could effect mental state, along with uremia and possible anoxic brain injury. Await MRI and await Neurology input. Guarded prognosis. 06/13/21: Will check UDS daily to see if benzo's continue to hang around. Not sure if dialysis can help but may need this to clear out drugs to see if patient will wake up. Renal has already seen today so await there assessment tomorrow after viewing my note. repeat UDS again as patient is still making urine. No new neurology notes or follow up. MRI not done, head CT suggests anoxic brain injury but not definite. Still think that all other metabolic derangements would need to be addressed. Guarded prognosis. 06/12/21: Reviewed chart and Neurology note. Will send UDS to make sure benzo's have cleared as she was on a versed drip. Discontinued all mind altering therapy. Very guarded prognosis. Patient may have been down longer than known with CPR. 1. Discontinue all sedation 2. Attempt PSV and then extubate 3. Follow up GI recs 4. Will continue to follow, with serial H/H's. CCT 31 minutes. Subjective Date of service: 06/18/21 Principal diagnosis: UGI bleed Interval history: Remains unresponsive, Eyes open. Has Had HD twice now. BUN and Cr better. Pulse dosed with steroids over the weekend as well. Objective Vital Signs - 12hr 06/17/21 06/17/21 06/18/21 23:00 23:11 00:00 Temperature 98.5 F Pulse Rate 82 82 93 H Pulse Rate [ From Monitor] Respiratory 15 23 Rate Blood Pressure 128/86 124/87 149/99 O2 Sat by Pulse 98 97 Oximetry 06/18/21 06/18/21 06/18/21 01:00 02:00 03:00 Temperature Pulse Rate 86 93 H 83 Pulse Rate [ From Monitor] Respiratory 18 20 19 Rate Blood Pressure 140/95 140/95 144/93 O2 Sat by Pulse 96 98 99 Oximetry 06/18/21 06/18/21 06/18/21 03:05 04:00 05:00 Temperature 98.4 F Pulse Rate 85 85 102 H Pulse Rate [ 93 H From Monitor] Respiratory 18 25 H Rate Blood Pressure 150/100 147/93 163/103 O2 Sat by Pulse 99 98 96 Oximetry 06/18/21 06/18/21 06/18/21 06:00 07:00 07:10 Temperature Pulse Rate 94 H 93 H 99 H Pulse Rate [ From Monitor] Respiratory 19 22 Rate Blood Pressure 153/100 158/99 158/99 O2 Sat by Pulse 96 96 97 Oximetry 06/18/21 06/18/21 06/18/21 08:00 08:01 10:34 Temperature 97.4 F L Pulse Rate 110 H 110 H 102 H Pulse Rate [ 110 H From Monitor] Respiratory 33 H 33 H Rate Blood Pressure 145/100 156/105 O2 Sat by Pulse 90 90 Oximetry Constitutional: other (intubated, critically ill) Eyes: non-icteric Neck: supple Effort: normal Ascultation: Bilateral: other Cardiovascular: regular rate and rhythm (no mrg) Gastrointestinal: normoactive bowel sounds, soft, non-tender, non-distended Integumentary: normal Extremities: no cyanosis, no edema, pink and warm Neurologic: other (unresponsive) Psychiatric: other (unable to assess) CBC and BMP: 06/18/21 04:00 06/18/21 04:00 ABG, PT/INR, D-dimer: ABG ABG pH 7.419 (7.320-7.450) 06/15/21 03:39 POC ABG pCO2 21.2 mmHg (32.0-48.0) L 06/15/21 03:39 ABG pCO2 24.1 mm Hg 06/12/21 04:50 POC ABG pO2 146.6 mmHg (83-108) H 06/15/21 03:39 ABG pO2 127.8 mm Hg (80.0-90.0) H 06/12/21 04:50 POC ABG HCO3 13.4 06/15/21 03:39 ABG O2 Saturation 99.0 (0-100) 06/15/21 03:39 PT/INR, D-dimer PT 16.3 Sec. (12.2-14.9) H 06/18/21 04:00 INR 1.26 (0.87-1.13) H 06/18/21 04:00 Abnormal lab findings: Abnormal Labs 06/09/21 06/09/21 06/09/21 03:27 03:42 03:59 WBC RBC 1.57 L Hgb 3.0 L* Hct 11.8 L* MCV 75 L MCH 19 L MCHC 26 L RDW 21.7 H Plt Count 109 L Lymph % (Auto) 9.7 L [place] % (Auto) 8.5 H Lymph # (Auto) 0.9 L [place] # (Auto) Seg Neutrophils % 81.2 H Seg Neuts % (Manual) Lymphocytes % (Manual) Nucleated RBC % Seg Neutrophils # Seg Neutrophils # Man Lymphocytes # (Manual) PT INR APTT Fibrinogen ABG pH POC ABG pCO2 POC ABG pO2 ABG pO2 ABG HCO3 ABG Base Excess ABG Hemoglobin ABG Oxyhemoglobin ABG Sodium ABG Potassium ABG Chloride ABG Glucose Carboxyhemoglobin Sodium Potassium Chloride 95.2 L Carbon Dioxide 8 L* BUN 18 H Creatinine Glucose 540 H* POC Glucose Lactic Acid 28.20 H* Calcium 11.5 H Phosphorus Magnesium Total Bilirubin AST 411 H ALT 106 H Alkaline Phosphatase Lactate Dehydrogenase Total Protein 4.9 L Albumin 2.4 L Arterial Blood Glucose Arterial Blood Ionized Calcium Urine WBC (Auto) Urine Creatinine Complement C3 Complement C4 Crossmatch 06/09/21 06/09/21 06/09/21 03:59 04:00 04:04 WBC RBC Hgb Hct MCV MCH MCHC RDW Plt Count Lymph % (Auto) [place] % (Auto) Lymph # (Auto) [place] # (Auto) Seg Neutrophils % Seg Neuts % (Manual) Lymphocytes % (Manual) Nucleated RBC % Seg Neutrophils # Seg Neutrophils # Man Lymphocytes # (Manual) PT 34.3 H INR 3.36 H APTT 66.3 H* Fibrinogen ABG pH 6.845 L POC ABG pCO2 POC ABG pO2 116.6 H ABG pO2 ABG HCO3 ABG Base Excess ABG Hemoglobin 2.6 L ABG Oxyhemoglobin 90.6 L ABG Sodium ABG Potassium 3.0 L ABG Chloride ABG Glucose 334 H Carboxyhemoglobin 1.8 H Sodium Potassium Chloride Carbon Dioxide BUN Creatinine Glucose POC Glucose Lactic Acid Calcium Phosphorus Magnesium Total Bilirubin AST ALT Alkaline Phosphatase Lactate Dehydrogenase Total Protein Albumin Arterial Blood Glucose 334 H Arterial Blood Ionized Calcium Urine WBC (Auto) Urine Creatinine Complement C3 Complement C4 Crossmatch See Detail 06/09/21 06/09/21 06/09/21 05:16 11:42 11:44 WBC RBC Hgb Hct MCV MCH MCHC RDW Plt Count Lymph % (Auto) [place] % (Auto) Lymph # (Auto) [place] # (Auto) Seg Neutrophils % Seg Neuts % (Manual) Lymphocytes % (Manual) Nucleated RBC % Seg Neutrophils # Seg Neutrophils # Man Lymphocytes # (Manual) PT INR APTT Fibrinogen ABG pH POC ABG pCO2 POC ABG pO2 ABG pO2 ABG HCO3 ABG Base Excess ABG Hemoglobin ABG Oxyhemoglobin ABG Sodium ABG Potassium ABG Chloride ABG Glucose Carboxyhemoglobin Sodium Potassium Chloride 109.5 H Carbon Dioxide 4 L* BUN 19 H Creatinine Glucose 158 H POC Glucose 191 H Lactic Acid 25.20 H* Calcium 7.8 L D Phosphorus Magnesium Total Bilirubin AST ALT Alkaline Phosphatase Lactate Dehydrogenase 2208 H Total Protein Albumin Arterial Blood Glucose Arterial Blood Ionized Calcium Urine WBC (Auto) Urine Creatinine Complement C3 Complement C4 Crossmatch 06/09/21 06/09/21 06/10/21 12:27 12:27 04:21 WBC 14.2 H RBC 3.58 L Hgb 8.9 L D Hct 29.9 L D MCV MCH 25 L MCHC RDW 22.0 H Plt Count 94 L Lymph % (Auto) [place] % (Auto) Lymph # (Auto) [place] # (Auto) Seg Neutrophils % Seg Neuts % (Manual) 87.0 H Lymphocytes % (Manual) 5.0 L Nucleated RBC % Seg Neutrophils # Seg Neutrophils # Man 12.4 H Lymphocytes # (Manual) 0.7 L PT 36.0 H INR 3.58 H APTT 52.6 H Fibrinogen 83 L* ABG pH 7.323 L POC ABG pCO2 POC ABG pO2 ABG pO2 152.9 H ABG HCO3 12.6 L ABG Base Excess -12.0 L ABG Hemoglobin 9.2 L ABG Oxyhemoglobin ABG Sodium ABG Potassium ABG Chloride ABG Glucose Carboxyhemoglobin Sodium Potassium Chloride Carbon Dioxide BUN Creatinine Glucose POC Glucose Lactic Acid Calcium Phosphorus Magnesium Total Bilirubin AST ALT Alkaline Phosphatase Lactate Dehydrogenase Total Protein Albumin Arterial Blood Glucose Arterial Blood Ionized Calcium Urine WBC (Auto) Urine Creatinine Complement C3 Complement C4 Crossmatch 06/10/21 06/10/21 06/10/21 04:27 04:27 06:59 WBC 14.1 H RBC Hgb Hct MCV MCH 25 L MCHC RDW 20.0 H Plt Count 99 L Lymph % (Auto) 4.2 L [place] % (Auto) 8.6 H Lymph # (Auto) 0.6 L [place] # (Auto) 1.2 H Seg Neutrophils % 86.6 H Seg Neuts % (Manual) Lymphocytes % (Manual) Nucleated RBC % Seg Neutrophils # 12.2 H Seg Neutrophils # Man Lymphocytes # (Manual) PT INR APTT Fibrinogen ABG pH POC ABG pCO2 POC ABG pO2 ABG pO2 ABG HCO3 ABG Base Excess ABG Hemoglobin ABG Oxyhemoglobin ABG Sodium ABG Potassium ABG Chloride ABG Glucose Carboxyhemoglobin Sodium 146 H Potassium 3.4 L Chloride 115.2 H Carbon Dioxide 14 L D BUN 30 H Creatinine 1.9 H D Glucose 122 H POC Glucose Lactic Acid 4.60 H* Calcium 7.4 L Phosphorus Magnesium Total Bilirubin 7.00 H AST 2708 H ALT 522 H Alkaline Phosphatase Lactate Dehydrogenase Total Protein 4.8 L Albumin 2.4 L Arterial Blood Glucose Arterial Blood Ionized Calcium Urine WBC (Auto) Urine Creatinine Complement C3 Complement C4 Crossmatch 06/10/21 06/10/21 06/10/21 06:59 08:23 08:47 WBC RBC Hgb Hct MCV MCH MCHC RDW Plt Count Lymph % (Auto) [place] % (Auto) Lymph # (Auto) [place] # (Auto) Seg Neutrophils % Seg Neuts % (Manual) Lymphocytes % (Manual) Nucleated RBC % Seg Neutrophils # Seg Neutrophils # Man Lymphocytes # (Manual) PT 26.8 H INR 2.42 H APTT Fibrinogen ABG pH POC ABG pCO2 POC ABG pO2 ABG pO2 ABG HCO3 ABG Base Excess ABG Hemoglobin ABG Oxyhemoglobin ABG Sodium ABG Potassium ABG Chloride ABG Glucose Carboxyhemoglobin Sodium Potassium Chloride Carbon Dioxide BUN Creatinine Glucose POC Glucose 121 H Lactic Acid Calcium Phosphorus Magnesium Total Bilirubin AST ALT Alkaline Phosphatase Lactate Dehydrogenase Total Protein Albumin Arterial Blood Glucose Arterial Blood Ionized Calcium Urine WBC (Auto) 23.0 H Urine Creatinine Complement C3 Complement C4 Crossmatch 06/10/21 06/10/21 06/11/21 11:47 23:46 03:52 WBC RBC Hgb Hct MCV MCH MCHC RDW Plt Count Lymph % (Auto) [place] % (Auto) Lymph # (Auto) [place] # (Auto) Seg Neutrophils % Seg Neuts % (Manual) Lymphocytes % (Manual) Nucleated RBC % Seg Neutrophils # Seg Neutrophils # Man Lymphocytes # (Manual) PT INR APTT Fibrinogen ABG pH POC ABG pCO2 POC ABG pO2 ABG pO2 148.9 H ABG HCO3 13.0 L ABG Base Excess -10.1 L ABG Hemoglobin 9.1 L ABG Oxyhemoglobin ABG Sodium ABG Potassium ABG Chloride ABG Glucose Carboxyhemoglobin Sodium Potassium Chloride Carbon Dioxide BUN Creatinine Glucose POC Glucose Lactic Acid 4.40 H* 3.30 H* Calcium Phosphorus Magnesium Total Bilirubin AST ALT Alkaline Phosphatase Lactate Dehydrogenase Total Protein Albumin Arterial Blood Glucose Arterial Blood Ionized Calcium Urine WBC (Auto) Urine Creatinine Complement C3 Complement C4 Crossmatch 06/11/21 06/11/21 06/11/21 05:05 10:38 10:38 WBC 12.6 H RBC 3.38 L Hgb 8.5 L Hct 26.3 L MCV 78 L MCH 25 L MCHC RDW 20.6 H Plt Count 97 L Lymph % (Auto) [place] % (Auto) Lymph # (Auto) [place] # (Auto) Seg Neutrophils % Seg Neuts % (Manual) Lymphocytes % (Manual) Nucleated RBC % Seg Neutrophils # Seg Neutrophils # Man Lymphocytes # (Manual) PT 23.1 H INR 1.98 H APTT Fibrinogen ABG pH POC ABG pCO2 POC ABG pO2 ABG pO2 ABG HCO3 ABG Base Excess ABG Hemoglobin ABG Oxyhemoglobin ABG Sodium ABG Potassium ABG Chloride ABG Glucose Carboxyhemoglobin Sodium Potassium Chloride Carbon Dioxide BUN Creatinine Glucose POC Glucose Lactic Acid 2.40 H* Calcium Phosphorus Magnesium Total Bilirubin AST ALT Alkaline Phosphatase Lactate Dehydrogenase Total Protein Albumin Arterial Blood Glucose Arterial Blood Ionized Calcium Urine WBC (Auto) Urine Creatinine Complement C3 Complement C4 Crossmatch 06/11/21 06/11/21 06/11/21 10:38 10:38 12:15 WBC RBC Hgb Hct MCV MCH MCHC RDW Plt Count Lymph % (Auto) [place] % (Auto) Lymph # (Auto) [place] # (Auto) Seg Neutrophils % Seg Neuts % (Manual) Lymphocytes % (Manual) Nucleated RBC % Seg Neutrophils # Seg Neutrophils # Man Lymphocytes # (Manual) PT INR APTT Fibrinogen ABG pH POC ABG pCO2 POC ABG pO2 ABG pO2 ABG HCO3 ABG Base Excess ABG Hemoglobin ABG Oxyhemoglobin ABG Sodium ABG Potassium ABG Chloride ABG Glucose Carboxyhemoglobin Sodium 147 H Potassium Chloride 118.1 H Carbon Dioxide 11 L BUN 53 H Creatinine 3.2 H D Glucose 104 H POC Glucose Lactic Acid 2.30 H* Calcium 5.9 L* D 5.9 L* Phosphorus 7.10 H Magnesium 1.60 L Total Bilirubin 4.20 H AST 2252 H ALT 540 H Alkaline Phosphatase Lactate Dehydrogenase Total Protein 4.4 L Albumin 2.2 L Arterial Blood Glucose Arterial Blood Ionized Calcium Urine WBC (Auto) Urine Creatinine Complement C3 Complement C4 Crossmatch 06/11/21 06/11/21 06/12/21 14:48 17:45 04:03 WBC 14.7 H RBC Hgb 8.9 L 9.4 L 9.2 L Hct 29.6 L 28.6 L 28.0 L MCV 77 L MCH 25 L MCHC RDW 21.2 H Plt Count 112 L Lymph % (Auto) 5.4 L [place] % (Auto) 8.6 H Lymph # (Auto) 0.8 L [place] # (Auto) 1.3 H Seg Neutrophils % 85.8 H Seg Neuts % (Manual) Lymphocytes % (Manual) Nucleated RBC % Seg Neutrophils # 12.6 H Seg Neutrophils # Man Lymphocytes # (Manual) PT INR APTT Fibrinogen ABG pH POC ABG pCO2 POC ABG pO2 ABG pO2 ABG HCO3 ABG Base Excess ABG Hemoglobin ABG Oxyhemoglobin ABG Sodium ABG Potassium ABG Chloride ABG Glucose Carboxyhemoglobin Sodium Potassium Chloride Carbon Dioxide BUN Creatinine Glucose POC Glucose Lactic Acid Calcium Phosphorus Magnesium Total Bilirubin AST ALT Alkaline Phosphatase Lactate Dehydrogenase Total Protein Albumin Arterial Blood Glucose Arterial Blood Ionized Calcium Urine WBC (Auto) Urine Creatinine Complement C3 Complement C4 Crossmatch 06/12/21 06/12/21 06/12/21 04:03 04:03 04:50 WBC RBC Hgb Hct MCV MCH MCHC RDW Plt Count Lymph % (Auto) [place] % (Auto) Lymph # (Auto) [place] # (Auto) Seg Neutrophils % Seg Neuts % (Manual) Lymphocytes % (Manual) Nucleated RBC % Seg Neutrophils # Seg Neutrophils # Man Lymphocytes # (Manual) PT 24.1 H INR 2.10 H APTT Fibrinogen ABG pH POC ABG pCO2 POC ABG pO2 ABG pO2 127.8 H ABG HCO3 13.2 L ABG Base Excess -11.0 L ABG Hemoglobin 8.6 L ABG Oxyhemoglobin ABG Sodium ABG Potassium ABG Chloride ABG Glucose Carboxyhemoglobin Sodium 148 H Potassium Chloride 117.8 H Carbon Dioxide 17 L BUN 72 H Creatinine 4.6 H Glucose POC Glucose Lactic Acid Calcium 6.1 L Phosphorus 6.70 H Magnesium Total Bilirubin 3.40 H AST 1494 H ALT 512 H Alkaline Phosphatase Lactate Dehydrogenase Total Protein 4.4 L Albumin 2.2 L Arterial Blood Glucose Arterial Blood Ionized Calcium Urine WBC (Auto) Urine Creatinine Complement C3 Complement C4 Crossmatch 06/12/21 06/12/21 06/13/21 20:15 20:15 00:16 WBC RBC Hgb Hct MCV MCH MCHC RDW Plt Count Lymph % (Auto) [place] % (Auto) Lymph # (Auto) [place] # (Auto) Seg Neutrophils % Seg Neuts % (Manual) Lymphocytes % (Manual) Nucleated RBC % Seg Neutrophils # Seg Neutrophils # Man Lymphocytes # (Manual) PT INR APTT Fibrinogen ABG pH POC ABG pCO2 POC ABG pO2 ABG pO2 ABG HCO3 ABG Base Excess ABG Hemoglobin ABG Oxyhemoglobin ABG Sodium ABG Potassium ABG Chloride ABG Glucose Carboxyhemoglobin Sodium Potassium Chloride Carbon Dioxide BUN Creatinine Glucose POC Glucose Lactic Acid Calcium Phosphorus Magnesium Total Bilirubin AST ALT Alkaline Phosphatase Lactate Dehydrogenase Total Protein Albumin Arterial Blood Glucose Arterial Blood Ionized Calcium Urine WBC (Auto) Urine Creatinine 28.0 H Complement C3 40 L Complement C4 4 L Crossmatch 06/13/21 06/13/21 06/13/21 04:00 08:11 08:11 WBC RBC 3.51 L Hgb 8.9 L Hct 26.2 L MCV 75 L MCH 25 L MCHC RDW 21.3 H Plt Count 96 L Lymph % (Auto) [place] % (Auto) Lymph # (Auto) [place] # (Auto) Seg Neutrophils % Seg Neuts % (Manual) Lymphocytes % (Manual) Nucleated RBC % Seg Neutrophils # Seg Neutrophils # Man Lymphocytes # (Manual) PT INR APTT Fibrinogen ABG pH POC ABG pCO2 22.8 L POC ABG pO2 115.7 H ABG pO2 ABG HCO3 ABG Base Excess ABG Hemoglobin 7.2 L ABG Oxyhemoglobin ABG Sodium ABG Potassium ABG Chloride 119.0 H ABG Glucose 102 H Carboxyhemoglobin Sodium 147 H Potassium Chloride 117.2 H Carbon Dioxide 15 L BUN 96 H Creatinine 6.1 H Glucose 107 H POC Glucose Lactic Acid Calcium 6.2 L Phosphorus Magnesium Total Bilirubin AST ALT Alkaline Phosphatase Lactate Dehydrogenase Total Protein Albumin Arterial Blood Glucose 102 H Arterial Blood Ionized Calcium Urine WBC (Auto) Urine Creatinine Complement C3 Complement C4 Crossmatch 06/13/21 06/13/21 06/14/21 12:54 14:17 04:35 WBC RBC Hgb Hct MCV MCH MCHC RDW Plt Count Lymph % (Auto) [place] % (Auto) Lymph # (Auto) [place] # (Auto) Seg Neutrophils % Seg Neuts % (Manual) Lymphocytes % (Manual) Nucleated RBC % Seg Neutrophils # Seg Neutrophils # Man Lymphocytes # (Manual) PT 18.2 H INR 1.44 H APTT Fibrinogen ABG pH 7.507 H POC ABG pCO2 15.9 L POC ABG pO2 121.2 H ABG pO2 ABG HCO3 ABG Base Excess ABG Hemoglobin 6.3 L ABG Oxyhemoglobin ABG Sodium ABG Potassium ABG Chloride 119.0 H ABG Glucose Carboxyhemoglobin Sodium Potassium Chloride Carbon Dioxide BUN Creatinine Glucose POC Glucose 107 H Lactic Acid Calcium Phosphorus Magnesium Total Bilirubin AST ALT Alkaline Phosphatase Lactate Dehydrogenase Total Protein Albumin Arterial Blood Glucose Arterial Blood Ionized Calcium 3.5 L Urine WBC (Auto) Urine Creatinine Complement C3 Complement C4 Crossmatch 06/14/21 06/14/21 06/14/21 08:45 08:45 08:45 WBC RBC Hgb 9.3 L Hct 27.6 L MCV 75 L MCH 25 L MCHC RDW 21.9 H Plt Count 137 L Lymph % (Auto) [place] % (Auto) Lymph # (Auto) [place] # (Auto) Seg Neutrophils % Seg Neuts % (Manual) Lymphocytes % (Manual) Nucleated RBC % Seg Neutrophils # Seg Neutrophils # Man Lymphocytes # (Manual) PT 16.8 H INR 1.30 H APTT Fibrinogen ABG pH POC ABG pCO2 POC ABG pO2 ABG pO2 ABG HCO3 ABG Base Excess ABG Hemoglobin ABG Oxyhemoglobin ABG Sodium ABG Potassium ABG Chloride ABG Glucose Carboxyhemoglobin Sodium 147 H Potassium Chloride 115.5 H Carbon Dioxide 15 L BUN 107 H Creatinine 6.8 H Glucose POC Glucose Lactic Acid Calcium 6.7 L Phosphorus Magnesium Total Bilirubin 5.00 H AST 578 H ALT 298 H Alkaline Phosphatase Lactate Dehydrogenase Total Protein 5.6 L D Albumin 2.3 L Arterial Blood Glucose Arterial Blood Ionized Calcium Urine WBC (Auto) Urine Creatinine Complement C3 Complement C4 Crossmatch 06/14/21 06/15/21 06/15/21 23:31 03:39 04:30 WBC 11.2 H RBC 3.05 L Hgb 7.5 L Hct 23.3 L MCV 76 L MCH 25 L MCHC RDW 23.1 H Plt Count 109 L Lymph % (Auto) [place] % (Auto) Lymph # (Auto) [place] # (Auto) Seg Neutrophils % Seg Neuts % (Manual) 90.0 H Lymphocytes % (Manual) 2.0 L Nucleated RBC % 1.0 H Seg Neutrophils # Seg Neutrophils # Man 10.1 H Lymphocytes # (Manual) 0.2 L PT INR APTT Fibrinogen ABG pH POC ABG pCO2 21.2 L POC ABG pO2 146.6 H ABG pO2 ABG HCO3 ABG Base Excess ABG Hemoglobin 8.0 L ABG Oxyhemoglobin ABG Sodium 145.2 H ABG Potassium ABG Chloride 120.0 H ABG Glucose 126 H Carboxyhemoglobin Sodium Potassium Chloride Carbon Dioxide BUN Creatinine Glucose POC Glucose 108 H Lactic Acid Calcium Phosphorus Magnesium Total Bilirubin AST ALT Alkaline Phosphatase Lactate Dehydrogenase Total Protein Albumin Arterial Blood Glucose 126 H Arterial Blood Ionized Calcium Urine WBC (Auto) Urine Creatinine Complement C3 Complement C4 Crossmatch 06/15/21 06/15/21 06/15/21 04:30 04:30 05:14 WBC RBC Hgb Hct MCV MCH MCHC RDW Plt Count Lymph % (Auto) [place] % (Auto) Lymph # (Auto) [place] # (Auto) Seg Neutrophils % Seg Neuts % (Manual) Lymphocytes % (Manual) Nucleated RBC % Seg Neutrophils # Seg Neutrophils # Man Lymphocytes # (Manual) PT 18.9 H INR 1.53 H APTT Fibrinogen ABG pH POC ABG pCO2 POC ABG pO2 ABG pO2 ABG HCO3 ABG Base Excess ABG Hemoglobin ABG Oxyhemoglobin ABG Sodium ABG Potassium ABG Chloride ABG Glucose Carboxyhemoglobin Sodium 147 H Potassium Chloride 116.5 H Carbon Dioxide 16 L BUN 121 H Creatinine 8.6 H Glucose 147 H POC Glucose 125 H Lactic Acid Calcium 6.5 L Phosphorus Magnesium Total Bilirubin 5.10 H AST 349 H ALT 214 H Alkaline Phosphatase Lactate Dehydrogenase Total Protein 4.9 L Albumin 2.0 L Arterial Blood Glucose Arterial Blood Ionized Calcium Urine WBC (Auto) Urine Creatinine Complement C3 Complement C4 Crossmatch 06/15/21 06/15/21 06/15/21 11:38 17:07 23:24 WBC RBC Hgb Hct MCV MCH MCHC RDW Plt Count Lymph % (Auto) [place] % (Auto) Lymph # (Auto) [place] # (Auto) Seg Neutrophils % Seg Neuts % (Manual) Lymphocytes % (Manual) Nucleated RBC % Seg Neutrophils # Seg Neutrophils # Man Lymphocytes # (Manual) PT INR APTT Fibrinogen ABG pH POC ABG pCO2 POC ABG pO2 ABG pO2 ABG HCO3 ABG Base Excess ABG Hemoglobin ABG Oxyhemoglobin ABG Sodium ABG Potassium ABG Chloride ABG Glucose Carboxyhemoglobin Sodium Potassium Chloride Carbon Dioxide BUN Creatinine Glucose POC Glucose 160 H 161 H 166 H Lactic Acid Calcium Phosphorus Magnesium Total Bilirubin AST ALT Alkaline Phosphatase Lactate Dehydrogenase Total Protein Albumin Arterial Blood Glucose Arterial Blood Ionized Calcium Urine WBC (Auto) Urine Creatinine Complement C3 Complement C4 Crossmatch 06/16/21 06/16/21 06/16/21 05:47 06:15 06:15 WBC 12.2 H RBC 3.42 L Hgb 8.6 L Hct 25.7 L MCV 75 L MCH 25 L MCHC RDW 22.6 H Plt Count 121 L Lymph % (Auto) [place] % (Auto) Lymph # (Auto) [place] # (Auto) Seg Neutrophils % Seg Neuts % (Manual) Lymphocytes % (Manual) Nucleated RBC % Seg Neutrophils # Seg Neutrophils # Man Lymphocytes # (Manual) PT INR APTT Fibrinogen ABG pH POC ABG pCO2 POC ABG pO2 ABG pO2 ABG HCO3 ABG Base Excess ABG Hemoglobin ABG Oxyhemoglobin ABG Sodium ABG Potassium ABG Chloride ABG Glucose Carboxyhemoglobin Sodium 147 H Potassium Chloride 108.3 H Carbon Dioxide 15 L BUN 82 H Creatinine 6.6 H Glucose 178 H POC Glucose 136 H Lactic Acid Calcium 7.4 L Phosphorus Magnesium Total Bilirubin 5.30 H AST 306 H ALT 201 H Alkaline Phosphatase 195 H Lactate Dehydrogenase Total Protein 5.9 L D Albumin 2.4 L Arterial Blood Glucose Arterial Blood Ionized Calcium Urine WBC (Auto) Urine Creatinine Complement C3 Complement C4 Crossmatch 06/16/21 06/16/21 06/16/21 11:41 18:23 23:40 WBC RBC Hgb Hct MCV MCH MCHC RDW Plt Count Lymph % (Auto) [place] % (Auto) Lymph # (Auto) [place] # (Auto) Seg Neutrophils % Seg Neuts % (Manual) Lymphocytes % (Manual) Nucleated RBC % Seg Neutrophils # Seg Neutrophils # Man Lymphocytes # (Manual) PT INR APTT Fibrinogen ABG pH POC ABG pCO2 POC ABG pO2 ABG pO2 ABG HCO3 ABG Base Excess ABG Hemoglobin ABG Oxyhemoglobin ABG Sodium ABG Potassium ABG Chloride ABG Glucose Carboxyhemoglobin Sodium Potassium Chloride Carbon Dioxide BUN Creatinine Glucose POC Glucose 169 H 172 H 161 H Lactic Acid Calcium Phosphorus Magnesium Total Bilirubin AST ALT Alkaline Phosphatase Lactate Dehydrogenase Total Protein Albumin Arterial Blood Glucose Arterial Blood Ionized Calcium Urine WBC (Auto) Urine Creatinine Complement C3 Complement C4 Crossmatch 06/17/21 06/17/21 06/17/21 05:25 08:00 08:00 WBC 17.4 H RBC 3.62 L Hgb 9.1 L Hct 27.1 L MCV 75 L MCH 25 L MCHC RDW 22.8 H Plt Count Lymph % (Auto) [place] % (Auto) Lymph # (Auto) [place] # (Auto) Seg Neutrophils % Seg Neuts % (Manual) Lymphocytes % (Manual) Nucleated RBC % Seg Neutrophils # Seg Neutrophils # Man Lymphocytes # (Manual) PT INR APTT Fibrinogen ABG pH POC ABG pCO2 POC ABG pO2 ABG pO2 ABG HCO3 ABG Base Excess ABG Hemoglobin ABG Oxyhemoglobin ABG Sodium ABG Potassium ABG Chloride ABG Glucose Carboxyhemoglobin Sodium Potassium 3.5 L Chloride Carbon Dioxide BUN 51 H Creatinine 4.2 H Glucose 182 H POC Glucose 170 H Lactic Acid Calcium 7.5 L Phosphorus Magnesium Total Bilirubin AST ALT Alkaline Phosphatase Lactate Dehydrogenase Total Protein Albumin Arterial Blood Glucose Arterial Blood Ionized Calcium Urine WBC (Auto) Urine Creatinine Complement C3 Complement C4 Crossmatch 06/17/21 06/17/21 06/17/21 11:24 17:13 23:59 WBC RBC Hgb Hct MCV MCH MCHC RDW Plt Count Lymph % (Auto) [place] % (Auto) Lymph # (Auto) [place] # (Auto) Seg Neutrophils % Seg Neuts % (Manual) Lymphocytes % (Manual) Nucleated RBC % Seg Neutrophils # Seg Neutrophils # Man Lymphocytes # (Manual) PT INR APTT Fibrinogen ABG pH POC ABG pCO2 POC ABG pO2 ABG pO2 ABG HCO3 ABG Base Excess ABG Hemoglobin ABG Oxyhemoglobin ABG Sodium ABG Potassium ABG Chloride ABG Glucose Carboxyhemoglobin Sodium Potassium Chloride Carbon Dioxide BUN Creatinine Glucose POC Glucose 164 H 186 H 205 H Lactic Acid Calcium Phosphorus Magnesium Total Bilirubin AST ALT Alkaline Phosphatase Lactate Dehydrogenase Total Protein Albumin Arterial Blood Glucose Arterial Blood Ionized Calcium Urine WBC (Auto) Urine Creatinine Complement C3 Complement C4 Crossmatch 06/18/21 06/18/21 06/18/21 04:00 04:00 04:00 WBC 22.8 H RBC 3.51 L Hgb 8.8 L Hct 26.7 L MCV 76 L MCH 25 L MCHC RDW 22.7 H Plt Count 136 L Lymph % (Auto) [place] % (Auto) Lymph # (Auto) [place] # (Auto) Seg Neutrophils % Seg Neuts % (Manual) Lymphocytes % (Manual) Nucleated RBC % Seg Neutrophils # Seg Neutrophils # Man Lymphocytes # (Manual) PT 16.3 H INR 1.26 H APTT Fibrinogen ABG pH POC ABG pCO2 POC ABG pO2 ABG pO2 ABG HCO3 ABG Base Excess ABG Hemoglobin ABG Oxyhemoglobin ABG Sodium ABG Potassium ABG Chloride ABG Glucose Carboxyhemoglobin Sodium Potassium 3.5 L Chloride Carbon Dioxide BUN 79 H Creatinine 6.2 H Glucose 203 H POC Glucose Lactic Acid Calcium 7.9 L Phosphorus Magnesium Total Bilirubin AST ALT Alkaline Phosphatase Lactate Dehydrogenase Total Protein Albumin Arterial Blood Glucose Arterial Blood Ionized Calcium Urine WBC (Auto) Urine Creatinine Complement C3 Complement C4 Crossmatch 06/18/21 05:26 WBC RBC Hgb Hct MCV MCH MCHC RDW Plt Count Lymph % (Auto) [place] % (Auto) Lymph # (Auto) [place] # (Auto) Seg Neutrophils % Seg Neuts % (Manual) Lymphocytes % (Manual) Nucleated RBC % Seg Neutrophils # Seg Neutrophils # Man Lymphocytes # (Manual) PT INR APTT Fibrinogen ABG pH POC ABG pCO2 POC ABG pO2 ABG pO2 ABG HCO3 ABG Base Excess ABG Hemoglobin ABG Oxyhemoglobin ABG Sodium ABG Potassium ABG Chloride ABG Glucose Carboxyhemoglobin Sodium Potassium Chloride Carbon Dioxide BUN Creatinine Glucose POC Glucose 187 H Lactic Acid Calcium Phosphorus Magnesium Total Bilirubin AST ALT Alkaline Phosphatase Lactate Dehydrogenase Total Protein Albumin Arterial Blood Glucose Arterial Blood Ionized Calcium Urine WBC (Auto) Urine Creatinine Complement C3 Complement C4 Crossmatch Allied health notes reviewed: nursing
--- NOTE | 2021-06-18 11:12 | Progress Note ---
Assessment and Plan - Patient Problems (1) Acute kidney failure Current Visit: Yes Status: Acute Plan to address problem: likely secondary to acute tubular necrosis in the setting of cardiac arrest and severely decreased hemoglobin levels in the setting of upper GI bleed. Urinalysis also concerning for evidence of microscopic hematuria and proteinur ia, indicating a possible underlying glomerulonephritis picture. Work up for acute GN initiated, Anti GBM Ab, ANCA vasculitis panel pending. Both C3/C4 levels are markedly decreased. Completed third dose of pulse steroids yesterday. Please avoid all nephrotoxins and maintain mean arterial pressures above 65 mmHg. Renal ultrasound reviewed without any acute abnormalities noted. Pt was initiated on HD, transitioning to MWF HD schedule, since no signs of renal recovery seen. (2) Cardiac arrest Current Visit: Yes Status: Acute Plan to address problem: With return of spontaneous circulation. Off pressor support at this time. Will monitor closely. (3) Cardiac arrest Onset Date: ~06/09/21 Current Visit: Yes Status: Acute (4) GI bleed Onset Date: ~06/09/21 Current Visit: Yes Status: Acute Qualifiers: GI bleed type/associated pathology: unspecified gastrointestinal hemorrhage type Qualified Code(s): K92.2 - Gastrointestinal hemorrhage, unspecified Plan to address problem: That is post emergent EGD showing large amount of old blood without any evidence of active bleeding sites noted. We will continue to monitor closely. Continues on Protonix drip. Await further recommendations from gastroenterology. hemoglobin/hematocrit levels are stable this morning. (5) Acute respiratory failure Current Visit: Yes Status: Acute Plan to address problem: Ventilator management per pulmonology. Stable on current vent settings. Subjective Date of service: 06/18/21 Principal diagnosis: UGI bleed Interval history: Patient remains intubated on vent support. Objective - Vital Signs Vital signs: Vital Signs - 12hr 06/17/21 06/18/21 06/18/21 23:11 00:00 01:00 Temperature 98.5 F Pulse Rate 82 93 H 86 Pulse Rate [ From Monitor] Respiratory 23 18 Rate Blood Pressure 124/87 149/99 140/95 O2 Sat by Pulse 98 97 96 Oximetry 06/18/21 06/18/21 06/18/21 02:00 03:00 03:05 Temperature Pulse Rate 93 H 83 85 Pulse Rate [ From Monitor] Respiratory 20 19 Rate Blood Pressure 140/95 144/93 150/100 O2 Sat by Pulse 98 99 99 Oximetry 06/18/21 06/18/21 06/18/21 04:00 05:00 06:00 Temperature 98.4 F Pulse Rate 85 102 H 94 H Pulse Rate [ 93 H From Monitor] Respiratory 18 25 H 19 Rate Blood Pressure 147/93 163/103 153/100 O2 Sat by Pulse 98 96 96 Oximetry 06/18/21 06/18/21 06/18/21 07:00 07:10 08:00 Temperature 97.4 F L Pulse Rate 93 H 99 H 110 H Pulse Rate [ 110 H From Monitor] Respiratory 22 33 H Rate Blood Pressure 158/99 158/99 O2 Sat by Pulse 96 97 90 Oximetry 06/18/21 06/18/21 06/18/21 08:01 09:00 10:00 Temperature Pulse Rate 110 H 106 H 109 H Pulse Rate [ From Monitor] Respiratory 33 H 26 H 27 H Rate Blood Pressure 145/100 154/106 161/111 O2 Sat by Pulse 90 93 95 Oximetry 06/18/21 10:34 Temperature Pulse Rate 102 H Pulse Rate [ From Monitor] Respiratory Rate Blood Pressure 156/105 O2 Sat by Pulse Oximetry - General Appearance General appearance: well-developed, cachectic, chronically ill, sedated on ventilator, intubated EENT: ATNC, mucous membranes moist Neck: no JVD Respiratory: Present: Decreased Breath Sounds Cardiology: regular Gastrointestinal: normoactive bowel sounds Integumentary: no rash, other (no edema ) Neurologic: other (intubated, sedated ) - Lab 06/18/21 04:00 06/18/21 04:00 Most recent lab results ABG pH 7.419 (7.320-7.450) 06/15/21 03:39 ABG pCO2 24.1 mm Hg 06/12/21 04:50 ABG pO2 127.8 mm Hg (80.0-90.0) H 06/12/21 04:50 ABG HCO3 13.2 mmol/L (20.0-26.0) L 06/12/21 04:50 ABG O2 Saturation 99.0 (0-100) 06/15/21 03:39 Calcium 7.9 mg/dL (8.4-10.2) L 06/18/21 04:00 Phosphorus 6.70 mg/dL (2.5-4.5) H 06/12/21 04:03 Magnesium 1.70 mg/dL (1.7-2.3) 06/12/21 04:03 Urine Creatinine 28.0 mg/dL (0.1-20.0) H 06/13/21 00:16 Urine Sodium 109 mmol/L 06/13/21 00:16 Medications & Allergies - Medications Allergies/Adverse Reactions: Allergies No Known Allergies Allergy (Verified 05/22/16 22:45) Home Medications: Home Medications Medication Instructions Recorded Confirmed Last Taken Type No Known Home Medications [No 06/09/21 06/09/21 Unknown History Reported Home Medications] Active Medications: Generic Name Dose Route Start Last Admin Trade Name Freq PRN Reason Stop Dose Admin Amlodipine Besylate 5 mg 06/18/21 10:00 06/18/21 10:34 Amlodipine 5 Mg Tab PO 5 mg QDAY GABINO Administration Lipase/Protease/Amylase 1 each 06/14/21 16:23 Lipase 10,500/Protease 25,000/Amylase 43,750 (Units) Dr Aponte FEEDTUBE PRN PRN For Clogged Feeding Tube Dextrose 50 ml 06/09/21 11:13 Dextrose 50% In Water (25gm) 50 Ml Syringe IV Q30MIN PRN Hypoglycemia Protocol Fentanyl 25 mcg 06/14/21 15:21 06/15/21 10:31 Fentanyl 100 Mcg/2 Ml Inj IV 25 mcg Q4HR PRN Administration Pain, Moderate (4-6) Hydrophilic Ointment 1 applic 06/09/21 03:26 06/12/21 20:00 Lip Therapy Vaseline TP 1 applic Q2HR PRN Administration Dry Lips Sodium Chloride 100 mls @ 999 mls/hr 06/17/21 11:14 Nacl 0.9% IV BURKE PRN Hypotension Insulin Human Regular 0 units 06/18/21 12:00 Insulin Regular, Human 100 Units/1 Ml SUB-Q Q6H GABINO Protocol Multi-Ingred Cream/Lotion/Oil/Oint 1 applic 06/09/21 03:26 06/12/21 20:05 Mineral Oil/Petrolatum, White Ophth Oint 3.5 Gm OU 1 applic Q4HR PRN Administration Dry Eye(s) Pantoprazole Sodium 40 mg 06/15/21 22:00 06/18/21 10:34 Pantoprazole 40 Mg Inj IV 40 mg BID GABINO Administration Simple Syrup 15 ml 06/14/21 16:23 Simple Syrup 15 Ml FEEDTUBE PRN PRN Hypoglycemia Simple Syrup 30 ml 06/14/21 16:23 Simple Syrup 15 Ml FEEDTUBE PRN PRN Hypoglycemia Sodium Bicarbonate 325 mg 06/14/21 16:23 Sodium Bicarbonate 325 Mg Tab FEEDTUBE PRN PRN For Clogged Feeding Tube Sodium Chloride 10 ml 06/09/21 22:00 06/18/21 10:34 Sodium Chloride 0.9% 10 Ml Flush Syringe IV 10 ml BID GABINO Administration Sodium Chloride 10 ml 06/09/21 11:13 Sodium Chloride 0.9% 10 Ml Flush Syringe IV PRN PRN LINE FLUSH
[2021-06-18 11:35] LABS: Amphetamine Screen,Urine Negative; Cocaine Screen,Urine Negative; Methadone Screen,Urine Negative; Opiate Screen,Urine Negative
[2021-06-18 11:46] LABS: Benzodiazepines Screen,Urine Positive; Cannabinoid Screen,Urine Positive
--- NOTE | 2021-06-18 11:46 | Progress Note ---
Assessment and Plan #Acute encephalopathy -Hypoxic versus metabolic - MRI brain on 06/14 showed hypoattenuation posterior cortical ? -consider repeat MRI brain -EEG is pending #Acute blood loss anemia-resolved #Hemorrhagic shock requiring pressors -resolved --Endoscopy 06/10/21: Clipping of presumed location of bleed by GI #Acute kidney injury -Unknown baseline, creatinine 6.2 today -Renal ultrasound negative -femoral vasc cath for access -HD x2; continue with HD MWF per Nephrology #PEA arrest -ROSC achieved #Anion gap metabolic acidosis #Lactic acidosis -Resolved -Likely secondary to PEA arrest and upper GI bleed #Coagulopathy -will continue to trend INR -give vitamin K as needed #Elevated liver enzymes -AST, ALT, T bili downtrending -likely secondary to shock -will continue to monitor #Acute hypoxic respiratory failure -intubated for airway protection, Pulmonary managing -unable to be extubated due to mental status -Plan for extubation as mental status will allow #Nutrition- continue TF @10cc/hr #CODE STATUS - Full Code PLAN 1- Repeat MRI brain 2- EEG today 3- HD by nephrology 4- No sedation will follow Subjective Date of service: 06/18/21 Principal diagnosis: UGI bleed Interval history: Altered Mental Status History of present illness: 60 yo female with unknown medical history, who presented with PEA arrest, s/p acute GI bleed (Hgb 3.0) with initial hypoglycemia (BG 20) and hypotension. Per RN, at bedside, patient was noted with some "independent movement" of the extremities . No reported seizure she is off sedation MRI is noted on 06/14 -- consider repeat EEG is pending Past History Past Medical History: No medical history (Unable to obtain further medical history given patient's clinical status) Medications and Allergies Allergies Allergy/AdvReac Type Severity Reaction Status Date / Time No Known Allergies Allergy Verified 05/22/16 22:45 Home Medications Medication Instructions Recorded Confirmed Last Taken Type No Known Home Medications [No 06/09/21 06/09/21 Unknown History Reported Home Medications] Active Meds: Active Medications Acetaminophen (Acetaminophen 325 Mg Tab) 650 mg PO Q4H PRN PRN Reason: Pain MILD(1-3)/Fever >100.5/GUTIERRES Acetaminophen (Acetaminophen 650 Mg Rect Supp) 975 mg LA Q4H PRN PRN Reason: Fever >101 Last Admin: 06/10/21 10:21 Dose: 975 mg Documented by: Dextrose (Dextrose 50% In Water (25gm) 50 Ml Syringe) 50 ml IV Q30MIN PRN; Protocol PRN Reason: Hypoglycemia Hydromorphone HCl (Hydromorphone 1 Mg/1 Ml Inj) 0.5 mg IV Q3H PRN PRN Reason: Pain , Severe (7-10) Last Admin: 06/09/21 11:40 Dose: 0.5 mg Documented by: Hydrophilic Ointment (Lip Therapy Vaseline) 1 applic TP Q2HR PRN PRN Reason: Dry Lips Pantoprazole Sodium 80 mg/ (Sodium Chloride) 100 mls @ 10 mls/hr IV DIRECT [facility] Last Admin: 06/11/21 07:48 Dose: 8 mg/hr, 10 mls/hr Documented by: Lactated Ringer's (Lactated Ringers) 1,000 mls @ 999 mls/hr IV BOLUS@1345 ONE Stop: 06/11/21 14:45 Last Admin: 06/11/21 13:48 Dose: 999 mls/hr Documented by: Magnesium Sulfate 1 gm/ Sodium (Chloride) 52 mls @ 52 mls/hr IV ONCE@1400 ONE Stop: 06/11/21 14:59 Last Admin: 06/11/21 14:03 Dose: 52 mls/hr Documented by: Insulin Human NPH (Insulin Nph, Human 100 Unit/1 Ml) 8 unit SUB-Q QDDIAB [facility] Last Admin: 06/11/21 09:27 Dose: Not Given Documented by: Morphine Sulfate (Morphine 2 Mg/1 Ml Inj) 2 mg IV Q4H PRN PRN Reason: Pain, Moderate (4-6) Multi-Ingred Cream/Lotion/Oil/Oint (Mineral Oil/Petrolatum, White Ophth Oint 3.5 Gm) 1 applic OU Q4HR PRN PRN Reason: Dry Eye(s) Sodium Chloride (Sodium Chloride 0.9% 10 Ml Flush Syringe) 10 ml IV BID [facility] Last Admin: 06/11/21 11:04 Dose: Not Given Documented by: Sodium Chloride (Sodium Chloride 0.9% 10 Ml Flush Syringe) 10 ml IV PRN PRN PRN Reason: LINE FLUSH Review of Systems ROS unobtainable: due to mental status Physical Examination - Vital Signs Vital Signs: Vital Signs Pulse BP Pulse Ox 99 H 82/53 100 06/09/21 03:32 06/09/21 03:32 06/09/21 03:32 - Physical Exam Narrative exam: Gen: nad, intubated; Head: normocephalic; Eyes: no gaze deviation; no unilateral ptosis appreciated; ENT: +ETT; CVS: warm and well-perfused; Pulm: no respiratory distress; GI: appears non-distended; Ext: no edema appreciated at distal upper extremities; Skin: no acute rash appreciated at distal extremities; Heme: no bruising at distal extremities; Neuro: obtunded, aphasic, intubated, CN 2 - sluggish reactive pupils, no visual tracking; CN 3, 4, 6 - no gaze deviation, CN 5/7 - corneal reflex intact, CN 9/10 - cough reflex noted w/ ETT stimulation, CN 11/12 - pt cannot cooperate secondary to LOC; Motor/Sensory - at least 1/5 at right and 0/5 at left exts to tactile stimuli; Cerebellar/Gait - pt cannot cooperate secondary to LOC; NIHSS>25; Results - Laboratory Findings CBC and BMP: 06/11/21 10:38 06/11/21 12:15 Abnormal Lab Findings: Abnormal Labs 06/09/21 06/09/21 06/09/21 03:27 03:42 03:59 WBC RBC 1.57 L Hgb 3.0 L* Hct 11.8 L* MCV 75 L MCH 19 L MCHC 26 L RDW 21.7 H Plt Count 109 L Lymph % (Auto) 9.7 L [place] % (Auto) 8.5 H Lymph # (Auto) 0.9 L [place] # (Auto) Seg Neutrophils % 81.2 H Seg Neuts % (Manual) Lymphocytes % (Manual) Seg Neutrophils # Seg Neutrophils # Man Lymphocytes # (Manual) PT INR APTT Fibrinogen ABG pH POC ABG pO2 ABG pO2 ABG HCO3 ABG Base Excess ABG Hemoglobin ABG Oxyhemoglobin ABG Potassium ABG Glucose Carboxyhemoglobin Sodium Potassium Chloride 95.2 L Carbon Dioxide 8 L* BUN 18 H Creatinine Glucose 540 H* POC Glucose Lactic Acid 28.20 H* Calcium 11.5 H Phosphorus Magnesium Total Bilirubin AST 411 H ALT 106 H Lactate Dehydrogenase Total Protein 4.9 L Albumin 2.4 L Arterial Blood Glucose Urine WBC (Auto) Crossmatch 06/09/21 06/09/21 06/09/21 03:59 04:00 04:04 WBC RBC Hgb Hct MCV MCH MCHC RDW Plt Count Lymph % (Auto) [place] % (Auto) Lymph # (Auto) [place] # (Auto) Seg Neutrophils % Seg Neuts % (Manual) Lymphocytes % (Manual) Seg Neutrophils # Seg Neutrophils # Man Lymphocytes # (Manual) PT 34.3 H INR 3.36 H APTT 66.3 H* Fibrinogen ABG pH 6.845 L POC ABG pO2 116.6 H ABG pO2 ABG HCO3 ABG Base Excess ABG Hemoglobin 2.6 L ABG Oxyhemoglobin 90.6 L ABG Potassium 3.0 L ABG Glucose 334 H Carboxyhemoglobin 1.8 H Sodium Potassium Chloride Carbon Dioxide BUN Creatinine Glucose POC Glucose Lactic Acid Calcium Phosphorus Magnesium Total Bilirubin AST ALT Lactate Dehydrogenase Total Protein Albumin Arterial Blood Glucose 334 H Urine WBC (Auto) Crossmatch See Detail 06/09/21 06/09/21 06/09/21 05:16 11:42 11:44 WBC RBC Hgb Hct MCV MCH MCHC RDW Plt Count Lymph % (Auto) [place] % (Auto) Lymph # (Auto) [place] # (Auto) Seg Neutrophils % Seg Neuts % (Manual) Lymphocytes % (Manual) Seg Neutrophils # Seg Neutrophils # Man Lymphocytes # (Manual) PT INR APTT Fibrinogen ABG pH POC ABG pO2 ABG pO2 ABG HCO3 ABG Base Excess ABG Hemoglobin ABG Oxyhemoglobin ABG Potassium ABG Glucose Carboxyhemoglobin Sodium Potassium Chloride 109.5 H Carbon Dioxide 4 L* BUN 19 H Creatinine Glucose 158 H POC Glucose 191 H Lactic Acid 25.20 H* Calcium 7.8 L D Phosphorus Magnesium Total Bilirubin AST ALT Lactate Dehydrogenase 2208 H Total Protein Albumin Arterial Blood Glucose Urine WBC (Auto) Crossmatch 06/09/21 06/09/21 06/10/21 12:27 12:27 04:21 WBC 14.2 H RBC 3.58 L Hgb 8.9 L D Hct 29.9 L D MCV MCH 25 L MCHC RDW 22.0 H Plt Count 94 L Lymph % (Auto) [place] % (Auto) Lymph # (Auto) [place] # (Auto) Seg Neutrophils % Seg Neuts % (Manual) 87.0 H Lymphocytes % (Manual) 5.0 L Seg Neutrophils # Seg Neutrophils # Man 12.4 H Lymphocytes # (Manual) 0.7 L PT 36.0 H INR 3.58 H APTT 52.6 H Fibrinogen 83 L* ABG pH 7.323 L POC ABG pO2 ABG pO2 152.9 H ABG HCO3 12.6 L ABG Base Excess -12.0 L ABG Hemoglobin 9.2 L ABG Oxyhemoglobin ABG Potassium ABG Glucose Carboxyhemoglobin Sodium Potassium Chloride Carbon Dioxide BUN Creatinine Glucose POC Glucose Lactic Acid Calcium Phosphorus Magnesium Total Bilirubin AST ALT Lactate Dehydrogenase Total Protein Albumin Arterial Blood Glucose Urine WBC (Auto) Crossmatch 06/10/21 06/10/21 06/10/21 04:27 04:27 06:59 WBC 14.1 H RBC Hgb Hct MCV MCH 25 L MCHC RDW 20.0 H Plt Count 99 L Lymph % (Auto) 4.2 L [place] % (Auto) 8.6 H Lymph # (Auto) 0.6 L [place] # (Auto) 1.2 H Seg Neutrophils % 86.6 H Seg Neuts % (Manual) Lymphocytes % (Manual) Seg Neutrophils # 12.2 H Seg Neutrophils # Man Lymphocytes # (Manual) PT INR APTT Fibrinogen ABG pH POC ABG pO2 ABG pO2 ABG HCO3 ABG Base Excess ABG Hemoglobin ABG Oxyhemoglobin ABG Potassium ABG Glucose Carboxyhemoglobin Sodium 146 H Potassium 3.4 L Chloride 115.2 H Carbon Dioxide 14 L D BUN 30 H Creatinine 1.9 H D Glucose 122 H POC Glucose Lactic Acid 4.60 H* Calcium 7.4 L Phosphorus Magnesium Total Bilirubin 7.00 H AST 2708 H ALT 522 H Lactate Dehydrogenase Total Protein 4.8 L Albumin 2.4 L Arterial Blood Glucose Urine WBC (Auto) Crossmatch 06/10/21 06/10/21 06/10/21 06:59 08:23 08:47 WBC RBC Hgb Hct MCV MCH MCHC RDW Plt Count Lymph % (Auto) [place] % (Auto) Lymph # (Auto) [place] # (Auto) Seg Neutrophils % Seg Neuts % (Manual) Lymphocytes % (Manual) Seg Neutrophils # Seg Neutrophils # Man Lymphocytes # (Manual) PT 26.8 H INR 2.42 H APTT Fibrinogen ABG pH POC ABG pO2 ABG pO2 ABG HCO3 ABG Base Excess ABG Hemoglobin ABG Oxyhemoglobin ABG Potassium ABG Glucose Carboxyhemoglobin Sodium Potassium Chloride Carbon Dioxide BUN Creatinine Glucose POC Glucose 121 H Lactic Acid Calcium Phosphorus Magnesium Total Bilirubin AST ALT Lactate Dehydrogenase Total Protein Albumin Arterial Blood Glucose Urine WBC (Auto) 23.0 H Crossmatch 06/10/21 06/10/21 06/11/21 11:47 23:46 03:52 WBC RBC Hgb Hct MCV MCH MCHC RDW Plt Count Lymph % (Auto) [place] % (Auto) Lymph # (Auto) [place] # (Auto) Seg Neutrophils % Seg Neuts % (Manual) Lymphocytes % (Manual) Seg Neutrophils # Seg Neutrophils # Man Lymphocytes # (Manual) PT INR APTT Fibrinogen ABG pH POC ABG pO2 ABG pO2 148.9 H ABG HCO3 13.0 L ABG Base Excess -10.1 L ABG Hemoglobin 9.1 L ABG Oxyhemoglobin ABG Potassium ABG Glucose Carboxyhemoglobin Sodium Potassium Chloride Carbon Dioxide BUN Creatinine Glucose POC Glucose Lactic Acid 4.40 H* 3.30 H* Calcium Phosphorus Magnesium Total Bilirubin AST ALT Lactate Dehydrogenase Total Protein Albumin Arterial Blood Glucose Urine WBC (Auto) Crossmatch 06/11/21 06/11/21 06/11/21 05:05 10:38 10:38 WBC 12.6 H RBC 3.38 L Hgb 8.5 L Hct 26.3 L MCV 78 L MCH 25 L MCHC RDW 20.6 H Plt Count 97 L Lymph % (Auto) [place] % (Auto) Lymph # (Auto) [place] # (Auto) Seg Neutrophils % Seg Neuts % (Manual) Lymphocytes % (Manual) Seg Neutrophils # Seg Neutrophils # Man Lymphocytes # (Manual) PT 23.1 H INR 1.98 H APTT Fibrinogen ABG pH POC ABG pO2 ABG pO2 ABG HCO3 ABG Base Excess ABG Hemoglobin ABG Oxyhemoglobin ABG Potassium ABG Glucose Carboxyhemoglobin Sodium Potassium Chloride Carbon Dioxide BUN Creatinine Glucose POC Glucose Lactic Acid 2.40 H* Calcium Phosphorus Magnesium Total Bilirubin AST ALT Lactate Dehydrogenase Total Protein Albumin Arterial Blood Glucose Urine WBC (Auto) Crossmatch 06/11/21 06/11/21 10:38 10:38 WBC RBC Hgb Hct MCV MCH MCHC RDW Plt Count Lymph % (Auto) [place] % (Auto) Lymph # (Auto) [place] # (Auto) Seg Neutrophils % Seg Neuts % (Manual) Lymphocytes % (Manual) Seg Neutrophils # Seg Neutrophils # Man Lymphocytes # (Manual) PT INR APTT Fibrinogen ABG pH POC ABG pO2 ABG pO2 ABG HCO3 ABG Base Excess ABG Hemoglobin ABG Oxyhemoglobin ABG Potassium ABG Glucose Carboxyhemoglobin Sodium 147 H Potassium Chloride 118.1 H Carbon Dioxide 11 L BUN 53 H Creatinine 3.2 H D Glucose 104 H POC Glucose Lactic Acid 2.30 H* Calcium 5.9 L* D Phosphorus 7.10 H Magnesium 1.60 L Total Bilirubin 4.20 H AST 2252 H ALT 540 H Lactate Dehydrogenase Total Protein 4.4 L Albumin 2.2 L Arterial Blood Glucose Urine WBC (Auto) Crossmatch Objective - Vital Sign Vital Signs - 12hr 06/18/21 06/18/21 06/18/21 00:00 01:00 02:00 Temperature 98.5 F Pulse Rate 93 H 86 93 H Pulse Rate [ From Monitor] Respiratory 23 18 20 Rate Blood Pressure 149/99 140/95 140/95 O2 Sat by Pulse 97 96 98 Oximetry 06/18/21 06/18/21 06/18/21 03:00 03:05 04:00 Temperature 98.4 F Pulse Rate 83 85 85 Pulse Rate [ 93 H From Monitor] Respiratory 19 18 Rate Blood Pressure 144/93 150/100 147/93 O2 Sat by Pulse 99 99 98 Oximetry 06/18/21 06/18/21 06/18/21 05:00 06:00 07:00 Temperature Pulse Rate 102 H 94 H 93 H Pulse Rate [ From Monitor] Respiratory 25 H 19 22 Rate Blood Pressure 163/103 153/100 158/99 O2 Sat by Pulse 96 96 96 Oximetry 06/18/21 06/18/21 06/18/21 07:10 08:00 08:01 Temperature 97.4 F L Pulse Rate 99 H 110 H 110 H Pulse Rate [ 110 H From Monitor] Respiratory 33 H 33 H Rate Blood Pressure 158/99 145/100 O2 Sat by Pulse 97 90 90 Oximetry 06/18/21 06/18/21 06/18/21 09:00 10:00 10:34 Temperature Pulse Rate 106 H 109 H 102 H Pulse Rate [ From Monitor] Respiratory 26 H 27 H Rate Blood Pressure 154/106 161/111 156/105 O2 Sat by Pulse 93 95 Oximetry - General Apperance Constitutional: comfortable - EENT EENT: PERRL, mucous membranes moist - Respiratory Respiratory: chest non-tender, lungs clear, rhonchi - Cardiovascular Cardiovascular: regular rate, normal S1, normal S2 Extremities: no peripheral edema bilat, no clubbing, cyanosis - Gastrointestinal Gastrointestinal: normoactive bowel sounds - Integumentary Integumentary: normal - Neurologic Cranial nerve examination: other (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 , no facial asymmetry ,is noted no corneal no gag is noted she is intubated ) Detailed motor examination: other (no movment to stimuli .planter is equivical bilateral.) - Laboratory Findings CBC and BMP: 06/18/21 04:00 06/18/21 04:00 Abnormal Lab Findings: Abnormal Labs 06/09/21 06/09/21 06/09/21 03:27 03:42 03:59 WBC RBC 1.57 L Hgb 3.0 L* Hct 11.8 L* MCV 75 L MCH 19 L MCHC 26 L RDW 21.7 H Plt Count 109 L Lymph % (Auto) 9.7 L [place] % (Auto) 8.5 H Lymph # (Auto) 0.9 L [place] # (Auto) Seg Neutrophils % 81.2 H Seg Neuts % (Manual) Lymphocytes % (Manual) Nucleated RBC % Seg Neutrophils # Seg Neutrophils # Man Lymphocytes # (Manual) PT INR APTT Fibrinogen ABG pH POC ABG pCO2 POC ABG pO2 ABG pO2 ABG HCO3 ABG Base Excess ABG Hemoglobin ABG Oxyhemoglobin ABG Sodium ABG Potassium ABG Chloride ABG Glucose Carboxyhemoglobin Sodium Potassium Chloride 95.2 L Carbon Dioxide 8 L* BUN 18 H Creatinine Glucose 540 H* POC Glucose Lactic Acid 28.20 H* Calcium 11.5 H Phosphorus Magnesium Total Bilirubin AST 411 H ALT 106 H Alkaline Phosphatase Lactate Dehydrogenase Total Protein 4.9 L Albumin 2.4 L Arterial Blood Glucose Arterial Blood Ionized Calcium Urine WBC (Auto) Urine Creatinine Complement C3 Complement C4 Crossmatch 06/09/21 06/09/21 06/09/21 03:59 04:00 04:04 WBC RBC Hgb Hct MCV MCH MCHC RDW Plt Count Lymph % (Auto) [place] % (Auto) Lymph # (Auto) [place] # (Auto) Seg Neutrophils % Seg Neuts % (Manual) Lymphocytes % (Manual) Nucleated RBC % Seg Neutrophils # Seg Neutrophils # Man Lymphocytes # (Manual) PT 34.3 H INR 3.36 H APTT 66.3 H* Fibrinogen ABG pH 6.845 L POC ABG pCO2 POC ABG pO2 116.6 H ABG pO2 ABG HCO3 ABG Base Excess ABG Hemoglobin 2.6 L ABG Oxyhemoglobin 90.6 L ABG Sodium ABG Potassium 3.0 L ABG Chloride ABG Glucose 334 H Carboxyhemoglobin 1.8 H Sodium Potassium Chloride Carbon Dioxide BUN Creatinine Glucose POC Glucose Lactic Acid Calcium Phosphorus Magnesium Total Bilirubin AST ALT Alkaline Phosphatase Lactate Dehydrogenase Total Protein Albumin Arterial Blood Glucose 334 H Arterial Blood Ionized Calcium Urine WBC (Auto) Urine Creatinine Complement C3 Complement C4 Crossmatch See Detail 06/09/21 06/09/21 06/09/21 05:16 11:42 11:44 WBC RBC Hgb Hct MCV MCH MCHC RDW Plt Count Lymph % (Auto) [place] % (Auto) Lymph # (Auto) [place] # (Auto) Seg Neutrophils % Seg Neuts % (Manual) Lymphocytes % (Manual) Nucleated RBC % Seg Neutrophils # Seg Neutrophils # Man Lymphocytes # (Manual) PT INR APTT Fibrinogen ABG pH POC ABG pCO2 POC ABG pO2 ABG pO2 ABG HCO3 ABG Base Excess ABG Hemoglobin ABG Oxyhemoglobin ABG Sodium ABG Potassium ABG Chloride ABG Glucose Carboxyhemoglobin Sodium Potassium Chloride 109.5 H Carbon Dioxide 4 L* BUN 19 H Creatinine Glucose 158 H POC Glucose 191 H Lactic Acid 25.20 H* Calcium 7.8 L D Phosphorus Magnesium Total Bilirubin AST ALT Alkaline Phosphatase Lactate Dehydrogenase 2208 H Total Protein Albumin Arterial Blood Glucose Arterial Blood Ionized Calcium Urine WBC (Auto) Urine Creatinine Complement C3 Complement C4 Crossmatch 06/09/21 06/09/21 06/10/21 12:27 12:27 04:21 WBC 14.2 H RBC 3.58 L Hgb 8.9 L D Hct 29.9 L D MCV MCH 25 L MCHC RDW 22.0 H Plt Count 94 L Lymph % (Auto) [place] % (Auto) Lymph # (Auto) [place] # (Auto) Seg Neutrophils % Seg Neuts % (Manual) 87.0 H Lymphocytes % (Manual) 5.0 L Nucleated RBC % Seg Neutrophils # Seg Neutrophils # Man 12.4 H Lymphocytes # (Manual) 0.7 L PT 36.0 H INR 3.58 H APTT 52.6 H Fibrinogen 83 L* ABG pH 7.323 L POC ABG pCO2 POC ABG pO2 ABG pO2 152.9 H ABG HCO3 12.6 L ABG Base Excess -12.0 L ABG Hemoglobin 9.2 L ABG Oxyhemoglobin ABG Sodium ABG Potassium ABG Chloride ABG Glucose Carboxyhemoglobin Sodium Potassium Chloride Carbon Dioxide BUN Creatinine Glucose POC Glucose Lactic Acid Calcium Phosphorus Magnesium Total Bilirubin AST ALT Alkaline Phosphatase Lactate Dehydrogenase Total Protein Albumin Arterial Blood Glucose Arterial Blood Ionized Calcium Urine WBC (Auto) Urine Creatinine Complement C3 Complement C4 Crossmatch 06/10/21 06/10/21 06/10/21 04:27 04:27 06:59 WBC 14.1 H RBC Hgb Hct MCV MCH 25 L MCHC RDW 20.0 H Plt Count 99 L Lymph % (Auto) 4.2 L [place] % (Auto) 8.6 H Lymph # (Auto) 0.6 L [place] # (Auto) 1.2 H Seg Neutrophils % 86.6 H Seg Neuts % (Manual) Lymphocytes % (Manual) Nucleated RBC % Seg Neutrophils # 12.2 H Seg Neutrophils # Man Lymphocytes # (Manual) PT INR APTT Fibrinogen ABG pH POC ABG pCO2 POC ABG pO2 ABG pO2 ABG HCO3 ABG Base Excess ABG Hemoglobin ABG Oxyhemoglobin ABG Sodium ABG Potassium ABG Chloride ABG Glucose Carboxyhemoglobin Sodium 146 H Potassium 3.4 L Chloride 115.2 H Carbon Dioxide 14 L D BUN 30 H Creatinine 1.9 H D Glucose 122 H POC Glucose Lactic Acid 4.60 H* Calcium 7.4 L Phosphorus Magnesium Total Bilirubin 7.00 H AST 2708 H ALT 522 H Alkaline Phosphatase Lactate Dehydrogenase Total Protein 4.8 L Albumin 2.4 L Arterial Blood Glucose Arterial Blood Ionized Calcium Urine WBC (Auto) Urine Creatinine Complement C3 Complement C4 Crossmatch 06/10/21 06/10/21 06/10/21 06:59 08:23 08:47 WBC RBC Hgb Hct MCV MCH MCHC RDW Plt Count Lymph % (Auto) [place] % (Auto) Lymph # (Auto) [place] # (Auto) Seg Neutrophils % Seg Neuts % (Manual) Lymphocytes % (Manual) Nucleated RBC % Seg Neutrophils # Seg Neutrophils # Man Lymphocytes # (Manual) PT 26.8 H INR 2.42 H APTT Fibrinogen ABG pH POC ABG pCO2 POC ABG pO2 ABG pO2 ABG HCO3 ABG Base Excess ABG Hemoglobin ABG Oxyhemoglobin ABG Sodium ABG Potassium ABG Chloride ABG Glucose Carboxyhemoglobin Sodium Potassium Chloride Carbon Dioxide BUN Creatinine Glucose POC Glucose 121 H Lactic Acid Calcium Phosphorus Magnesium Total Bilirubin AST ALT Alkaline Phosphatase Lactate Dehydrogenase Total Protein Albumin Arterial Blood Glucose Arterial Blood Ionized Calcium Urine WBC (Auto) 23.0 H Urine Creatinine Complement C3 Complement C4 Crossmatch 06/10/21 06/10/21 06/11/21 11:47 23:46 03:52 WBC RBC Hgb Hct MCV MCH MCHC RDW Plt Count Lymph % (Auto) [place] % (Auto) Lymph # (Auto) [place] # (Auto) Seg Neutrophils % Seg Neuts % (Manual) Lymphocytes % (Manual) Nucleated RBC % Seg Neutrophils # Seg Neutrophils # Man Lymphocytes # (Manual) PT INR APTT Fibrinogen ABG pH POC ABG pCO2 POC ABG pO2 ABG pO2 148.9 H ABG HCO3 13.0 L ABG Base Excess -10.1 L ABG Hemoglobin 9.1 L ABG Oxyhemoglobin ABG Sodium ABG Potassium ABG Chloride ABG Glucose Carboxyhemoglobin Sodium Potassium Chloride Carbon Dioxide BUN Creatinine Glucose POC Glucose Lactic Acid 4.40 H* 3.30 H* Calcium Phosphorus Magnesium Total Bilirubin AST ALT Alkaline Phosphatase Lactate Dehydrogenase Total Protein Albumin Arterial Blood Glucose Arterial Blood Ionized Calcium Urine WBC (Auto) Urine Creatinine Complement C3 Complement C4 Crossmatch 06/11/21 06/11/21 06/11/21 05:05 10:38 10:38 WBC 12.6 H RBC 3.38 L Hgb 8.5 L Hct 26.3 L MCV 78 L MCH 25 L MCHC RDW 20.6 H Plt Count 97 L Lymph % (Auto) [place] % (Auto) Lymph # (Auto) [place] # (Auto) Seg Neutrophils % Seg Neuts % (Manual) Lymphocytes % (Manual) Nucleated RBC % Seg Neutrophils # Seg Neutrophils # Man Lymphocytes # (Manual) PT 23.1 H INR 1.98 H APTT Fibrinogen ABG pH POC ABG pCO2 POC ABG pO2 ABG pO2 ABG HCO3 ABG Base Excess ABG Hemoglobin ABG Oxyhemoglobin ABG Sodium ABG Potassium ABG Chloride ABG Glucose Carboxyhemoglobin Sodium Potassium Chloride Carbon Dioxide BUN Creatinine Glucose POC Glucose Lactic Acid 2.40 H* Calcium Phosphorus Magnesium Total Bilirubin AST ALT Alkaline Phosphatase Lactate Dehydrogenase Total Protein Albumin Arterial Blood Glucose Arterial Blood Ionized Calcium Urine WBC (Auto) Urine Creatinine Complement C3 Complement C4 Crossmatch 06/11/21 06/11/21 06/11/21 10:38 10:38 12:15 WBC RBC Hgb Hct MCV MCH MCHC RDW Plt Count Lymph % (Auto) [place] % (Auto) Lymph # (Auto) [place] # (Auto) Seg Neutrophils % Seg Neuts % (Manual) Lymphocytes % (Manual) Nucleated RBC % Seg Neutrophils # Seg Neutrophils # Man Lymphocytes # (Manual) PT INR APTT Fibrinogen ABG pH POC ABG pCO2 POC ABG pO2 ABG pO2 ABG HCO3 ABG Base Excess ABG Hemoglobin ABG Oxyhemoglobin ABG Sodium ABG Potassium ABG Chloride ABG Glucose Carboxyhemoglobin Sodium 147 H Potassium Chloride 118.1 H Carbon Dioxide 11 L BUN 53 H Creatinine 3.2 H D Glucose 104 H POC Glucose Lactic Acid 2.30 H* Calcium 5.9 L* D 5.9 L* Phosphorus 7.10 H Magnesium 1.60 L Total Bilirubin 4.20 H AST 2252 H ALT 540 H Alkaline Phosphatase Lactate Dehydrogenase Total Protein 4.4 L Albumin 2.2 L Arterial Blood Glucose Arterial Blood Ionized Calcium Urine WBC (Auto) Urine Creatinine Complement C3 Complement C4 Crossmatch 06/11/21 06/11/21 06/12/21 14:48 17:45 04:03 WBC 14.7 H RBC Hgb 8.9 L 9.4 L 9.2 L Hct 29.6 L 28.6 L 28.0 L MCV 77 L MCH 25 L MCHC RDW 21.2 H Plt Count 112 L Lymph % (Auto) 5.4 L [place] % (Auto) 8.6 H Lymph # (Auto) 0.8 L [place] # (Auto) 1.3 H Seg Neutrophils % 85.8 H Seg Neuts % (Manual) Lymphocytes % (Manual) Nucleated RBC % Seg Neutrophils # 12.6 H Seg Neutrophils # Man Lymphocytes # (Manual) PT INR APTT Fibrinogen ABG pH POC ABG pCO2 POC ABG pO2 ABG pO2 ABG HCO3 ABG Base Excess ABG Hemoglobin ABG Oxyhemoglobin ABG Sodium ABG Potassium ABG Chloride ABG Glucose Carboxyhemoglobin Sodium Potassium Chloride Carbon Dioxide BUN Creatinine Glucose POC Glucose Lactic Acid Calcium Phosphorus Magnesium Total Bilirubin AST ALT Alkaline Phosphatase Lactate Dehydrogenase Total Protein Albumin Arterial Blood Glucose Arterial Blood Ionized Calcium Urine WBC (Auto) Urine Creatinine Complement C3 Complement C4 Crossmatch 06/12/21 06/12/21 06/12/21 04:03 04:03 04:50 WBC RBC Hgb Hct MCV MCH MCHC RDW Plt Count Lymph % (Auto) [place] % (Auto) Lymph # (Auto) [place] # (Auto) Seg Neutrophils % Seg Neuts % (Manual) Lymphocytes % (Manual) Nucleated RBC % Seg Neutrophils # Seg Neutrophils # Man Lymphocytes # (Manual) PT 24.1 H INR 2.10 H APTT Fibrinogen ABG pH POC ABG pCO2 POC ABG pO2 ABG pO2 127.8 H ABG HCO3 13.2 L ABG Base Excess -11.0 L ABG Hemoglobin 8.6 L ABG Oxyhemoglobin ABG Sodium ABG Potassium ABG Chloride ABG Glucose Carboxyhemoglobin Sodium 148 H Potassium Chloride 117.8 H Carbon Dioxide 17 L BUN 72 H Creatinine 4.6 H Glucose POC Glucose Lactic Acid Calcium 6.1 L Phosphorus 6.70 H Magnesium Total Bilirubin 3.40 H AST 1494 H ALT 512 H Alkaline Phosphatase Lactate Dehydrogenase Total Protein 4.4 L Albumin 2.2 L Arterial Blood Glucose Arterial Blood Ionized Calcium Urine WBC (Auto) Urine Creatinine Complement C3 Complement C4 Crossmatch 06/12/21 06/12/21 06/13/21 20:15 20:15 00:16 WBC RBC Hgb Hct MCV MCH MCHC RDW Plt Count Lymph % (Auto) [place] % (Auto) Lymph # (Auto) [place] # (Auto) Seg Neutrophils % Seg Neuts % (Manual) Lymphocytes % (Manual) Nucleated RBC % Seg Neutrophils # Seg Neutrophils # Man Lymphocytes # (Manual) PT INR APTT Fibrinogen ABG pH POC ABG pCO2 POC ABG pO2 ABG pO2 ABG HCO3 ABG Base Excess ABG Hemoglobin ABG Oxyhemoglobin ABG Sodium ABG Potassium ABG Chloride ABG Glucose Carboxyhemoglobin Sodium Potassium Chloride Carbon Dioxide BUN Creatinine Glucose POC Glucose Lactic Acid Calcium Phosphorus Magnesium Total Bilirubin AST ALT Alkaline Phosphatase Lactate Dehydrogenase Total Protein Albumin Arterial Blood Glucose Arterial Blood Ionized Calcium Urine WBC (Auto) Urine Creatinine 28.0 H Complement C3 40 L Complement C4 4 L Crossmatch 06/13/21 06/13/21 06/13/21 04:00 08:11 08:11 WBC RBC 3.51 L Hgb 8.9 L Hct 26.2 L MCV 75 L MCH 25 L MCHC RDW 21.3 H Plt Count 96 L Lymph % (Auto) [place] % (Auto) Lymph # (Auto) [place] # (Auto) Seg Neutrophils % Seg Neuts % (Manual) Lymphocytes % (Manual) Nucleated RBC % Seg Neutrophils # Seg Neutrophils # Man Lymphocytes # (Manual) PT INR APTT Fibrinogen ABG pH POC ABG pCO2 22.8 L POC ABG pO2 115.7 H ABG pO2 ABG HCO3 ABG Base Excess ABG Hemoglobin 7.2 L ABG Oxyhemoglobin ABG Sodium ABG Potassium ABG Chloride 119.0 H ABG Glucose 102 H Carboxyhemoglobin Sodium 147 H Potassium Chloride 117.2 H Carbon Dioxide 15 L BUN 96 H Creatinine 6.1 H Glucose 107 H POC Glucose Lactic Acid Calcium 6.2 L Phosphorus Magnesium Total Bilirubin AST ALT Alkaline Phosphatase Lactate Dehydrogenase Total Protein Albumin Arterial Blood Glucose 102 H Arterial Blood Ionized Calcium Urine WBC (Auto) Urine Creatinine Complement C3 Complement C4 Crossmatch 06/13/21 06/13/21 06/14/21 12:54 14:17 04:35 WBC RBC Hgb Hct MCV MCH MCHC RDW Plt Count Lymph % (Auto) [place] % (Auto) Lymph # (Auto) [place] # (Auto) Seg Neutrophils % Seg Neuts % (Manual) Lymphocytes % (Manual) Nucleated RBC % Seg Neutrophils # Seg Neutrophils # Man Lymphocytes # (Manual) PT 18.2 H INR 1.44 H APTT Fibrinogen ABG pH 7.507 H POC ABG pCO2 15.9 L POC ABG pO2 121.2 H ABG pO2 ABG HCO3 ABG Base Excess ABG Hemoglobin 6.3 L ABG Oxyhemoglobin ABG Sodium ABG Potassium ABG Chloride 119.0 H ABG Glucose Carboxyhemoglobin Sodium Potassium Chloride Carbon Dioxide BUN Creatinine Glucose POC Glucose 107 H Lactic Acid Calcium Phosphorus Magnesium Total Bilirubin AST ALT Alkaline Phosphatase Lactate Dehydrogenase Total Protein Albumin Arterial Blood Glucose Arterial Blood Ionized Calcium 3.5 L Urine WBC (Auto) Urine Creatinine Complement C3 Complement C4 Crossmatch 06/14/21 06/14/21 06/14/21 08:45 08:45 08:45 WBC RBC Hgb 9.3 L Hct 27.6 L MCV 75 L MCH 25 L MCHC RDW 21.9 H Plt Count 137 L Lymph % (Auto) [place] % (Auto) Lymph # (Auto) [place] # (Auto) Seg Neutrophils % Seg Neuts % (Manual) Lymphocytes % (Manual) Nucleated RBC % Seg Neutrophils # Seg Neutrophils # Man Lymphocytes # (Manual) PT 16.8 H INR 1.30 H APTT Fibrinogen ABG pH POC ABG pCO2 POC ABG pO2 ABG pO2 ABG HCO3 ABG Base Excess ABG Hemoglobin ABG Oxyhemoglobin ABG Sodium ABG Potassium ABG Chloride ABG Glucose Carboxyhemoglobin Sodium 147 H Potassium Chloride 115.5 H Carbon Dioxide 15 L BUN 107 H Creatinine 6.8 H Glucose POC Glucose Lactic Acid Calcium 6.7 L Phosphorus Magnesium Total Bilirubin 5.00 H AST 578 H ALT 298 H Alkaline Phosphatase Lactate Dehydrogenase Total Protein 5.6 L D Albumin 2.3 L Arterial Blood Glucose Arterial Blood Ionized Calcium Urine WBC (Auto) Urine Creatinine Complement C3 Complement C4 Crossmatch 06/14/21 06/15/21 06/15/21 23:31 03:39 04:30 WBC 11.2 H RBC 3.05 L Hgb 7.5 L Hct 23.3 L MCV 76 L MCH 25 L MCHC RDW 23.1 H Plt Count 109 L Lymph % (Auto) [place] % (Auto) Lymph # (Auto) [place] # (Auto) Seg Neutrophils % Seg Neuts % (Manual) 90.0 H Lymphocytes % (Manual) 2.0 L Nucleated RBC % 1.0 H Seg Neutrophils # Seg Neutrophils # Man 10.1 H Lymphocytes # (Manual) 0.2 L PT INR APTT Fibrinogen ABG pH POC ABG pCO2 21.2 L POC ABG pO2 146.6 H ABG pO2 ABG HCO3 ABG Base Excess ABG Hemoglobin 8.0 L ABG Oxyhemoglobin ABG Sodium 145.2 H ABG Potassium ABG Chloride 120.0 H ABG Glucose 126 H Carboxyhemoglobin Sodium Potassium Chloride Carbon Dioxide BUN Creatinine Glucose POC Glucose 108 H Lactic Acid Calcium Phosphorus Magnesium Total Bilirubin AST ALT Alkaline Phosphatase Lactate Dehydrogenase Total Protein Albumin Arterial Blood Glucose 126 H Arterial Blood Ionized Calcium Urine WBC (Auto) Urine Creatinine Complement C3 Complement C4 Crossmatch 06/15/21 06/15/21 06/15/21 04:30 04:30 05:14 WBC RBC Hgb Hct MCV MCH MCHC RDW Plt Count Lymph % (Auto) [place] % (Auto) Lymph # (Auto) [place] # (Auto) Seg Neutrophils % Seg Neuts % (Manual) Lymphocytes % (Manual) Nucleated RBC % Seg Neutrophils # Seg Neutrophils # Man Lymphocytes # (Manual) PT 18.9 H INR 1.53 H APTT Fibrinogen ABG pH POC ABG pCO2 POC ABG pO2 ABG pO2 ABG HCO3 ABG Base Excess ABG Hemoglobin ABG Oxyhemoglobin ABG Sodium ABG Potassium ABG Chloride ABG Glucose Carboxyhemoglobin Sodium 147 H Potassium Chloride 116.5 H Carbon Dioxide 16 L BUN 121 H Creatinine 8.6 H Glucose 147 H POC Glucose 125 H Lactic Acid Calcium 6.5 L Phosphorus Magnesium Total Bilirubin 5.10 H AST 349 H ALT 214 H Alkaline Phosphatase Lactate Dehydrogenase Total Protein 4.9 L Albumin 2.0 L Arterial Blood Glucose Arterial Blood Ionized Calcium Urine WBC (Auto) Urine Creatinine Complement C3 Complement C4 Crossmatch 06/15/21 06/15/21 06/15/21 11:38 17:07 23:24 WBC RBC Hgb Hct MCV MCH MCHC RDW Plt Count Lymph % (Auto) [place] % (Auto) Lymph # (Auto) [place] # (Auto) Seg Neutrophils % Seg Neuts % (Manual) Lymphocytes % (Manual) Nucleated RBC % Seg Neutrophils # Seg Neutrophils # Man Lymphocytes # (Manual) PT INR APTT Fibrinogen ABG pH POC ABG pCO2 POC ABG pO2 ABG pO2 ABG HCO3 ABG Base Excess ABG Hemoglobin ABG Oxyhemoglobin ABG Sodium ABG Potassium ABG Chloride ABG Glucose Carboxyhemoglobin Sodium Potassium Chloride Carbon Dioxide BUN Creatinine Glucose POC Glucose 160 H 161 H 166 H Lactic Acid Calcium Phosphorus Magnesium Total Bilirubin AST ALT Alkaline Phosphatase Lactate Dehydrogenase Total Protein Albumin Arterial Blood Glucose Arterial Blood Ionized Calcium Urine WBC (Auto) Urine Creatinine Complement C3 Complement C4 Crossmatch 06/16/21 06/16/21 06/16/21 05:47 06:15 06:15 WBC 12.2 H RBC 3.42 L Hgb 8.6 L Hct 25.7 L MCV 75 L MCH 25 L MCHC RDW 22.6 H Plt Count 121 L Lymph % (Auto) [place] % (Auto) Lymph # (Auto) [place] # (Auto) Seg Neutrophils % Seg Neuts % (Manual) Lymphocytes % (Manual) Nucleated RBC % Seg Neutrophils # Seg Neutrophils # Man Lymphocytes # (Manual) PT INR APTT Fibrinogen ABG pH POC ABG pCO2 POC ABG pO2 ABG pO2 ABG HCO3 ABG Base Excess ABG Hemoglobin ABG Oxyhemoglobin ABG Sodium ABG Potassium ABG Chloride ABG Glucose Carboxyhemoglobin Sodium 147 H Potassium Chloride 108.3 H Carbon Dioxide 15 L BUN 82 H Creatinine 6.6 H Glucose 178 H POC Glucose 136 H Lactic Acid Calcium 7.4 L Phosphorus Magnesium Total Bilirubin 5.30 H AST 306 H ALT 201 H Alkaline Phosphatase 195 H Lactate Dehydrogenase Total Protein 5.9 L D Albumin 2.4 L Arterial Blood Glucose Arterial Blood Ionized Calcium Urine WBC (Auto) Urine Creatinine Complement C3 Complement C4 Crossmatch 06/16/21 06/16/21 06/16/21 11:41 18:23 23:40 WBC RBC Hgb Hct MCV MCH MCHC RDW Plt Count Lymph % (Auto) [place] % (Auto) Lymph # (Auto) [place] # (Auto) Seg Neutrophils % Seg Neuts % (Manual) Lymphocytes % (Manual) Nucleated RBC % Seg Neutrophils # Seg Neutrophils # Man Lymphocytes # (Manual) PT INR APTT Fibrinogen ABG pH POC ABG pCO2 POC ABG pO2 ABG pO2 ABG HCO3 ABG Base Excess ABG Hemoglobin ABG Oxyhemoglobin ABG Sodium ABG Potassium ABG Chloride ABG Glucose Carboxyhemoglobin Sodium Potassium Chloride Carbon Dioxide BUN Creatinine Glucose POC Glucose 169 H 172 H 161 H Lactic Acid Calcium Phosphorus Magnesium Total Bilirubin AST ALT Alkaline Phosphatase Lactate Dehydrogenase Total Protein Albumin Arterial Blood Glucose Arterial Blood Ionized Calcium Urine WBC (Auto) Urine Creatinine Complement C3 Complement C4 Crossmatch 06/17/21 06/17/21 06/17/21 05:25 08:00 08:00 WBC 17.4 H RBC 3.62 L Hgb 9.1 L Hct 27.1 L MCV 75 L MCH 25 L MCHC RDW 22.8 H Plt Count Lymph % (Auto) [place] % (Auto) Lymph # (Auto) [place] # (Auto) Seg Neutrophils % Seg Neuts % (Manual) Lymphocytes % (Manual) Nucleated RBC % Seg Neutrophils # Seg Neutrophils # Man Lymphocytes # (Manual) PT INR APTT Fibrinogen ABG pH POC ABG pCO2 POC ABG pO2 ABG pO2 ABG HCO3 ABG Base Excess ABG Hemoglobin ABG Oxyhemoglobin ABG Sodium ABG Potassium ABG Chloride ABG Glucose Carboxyhemoglobin Sodium Potassium 3.5 L Chloride Carbon Dioxide BUN 51 H Creatinine 4.2 H Glucose 182 H POC Glucose 170 H Lactic Acid Calcium 7.5 L Phosphorus Magnesium Total Bilirubin AST ALT Alkaline Phosphatase Lactate Dehydrogenase Total Protein Albumin Arterial Blood Glucose Arterial Blood Ionized Calcium Urine WBC (Auto) Urine Creatinine Complement C3 Complement C4 Crossmatch 06/17/21 06/17/21 06/17/21 11:24 17:13 23:59 WBC RBC Hgb Hct MCV MCH MCHC RDW Plt Count Lymph % (Auto) [place] % (Auto) Lymph # (Auto) [place] # (Auto) Seg Neutrophils % Seg Neuts % (Manual) Lymphocytes % (Manual) Nucleated RBC % Seg Neutrophils # Seg Neutrophils # Man Lymphocytes # (Manual) PT INR APTT Fibrinogen ABG pH POC ABG pCO2 POC ABG pO2 ABG pO2 ABG HCO3 ABG Base Excess ABG Hemoglobin ABG Oxyhemoglobin ABG Sodium ABG Potassium ABG Chloride ABG Glucose Carboxyhemoglobin Sodium Potassium Chloride Carbon Dioxide BUN Creatinine Glucose POC Glucose 164 H 186 H 205 H Lactic Acid Calcium Phosphorus Magnesium Total Bilirubin AST ALT Alkaline Phosphatase Lactate Dehydrogenase Total Protein Albumin Arterial Blood Glucose Arterial Blood Ionized Calcium Urine WBC (Auto) Urine Creatinine Complement C3 Complement C4 Crossmatch 06/18/21 06/18/21 06/18/21 04:00 04:00 04:00 WBC 22.8 H RBC 3.51 L Hgb 8.8 L Hct 26.7 L MCV 76 L MCH 25 L MCHC RDW 22.7 H Plt Count 136 L Lymph % (Auto) [place] % (Auto) Lymph # (Auto) [place] # (Auto) Seg Neutrophils % Seg Neuts % (Manual) Lymphocytes % (Manual) Nucleated RBC % Seg Neutrophils # Seg Neutrophils # Man Lymphocytes # (Manual) PT 16.3 H INR 1.26 H APTT Fibrinogen ABG pH POC ABG pCO2 POC ABG pO2 ABG pO2 ABG HCO3 ABG Base Excess ABG Hemoglobin ABG Oxyhemoglobin ABG Sodium ABG Potassium ABG Chloride ABG Glucose Carboxyhemoglobin Sodium Potassium 3.5 L Chloride Carbon Dioxide BUN 79 H Creatinine 6.2 H Glucose 203 H POC Glucose Lactic Acid Calcium 7.9 L Phosphorus Magnesium Total Bilirubin AST ALT Alkaline Phosphatase Lactate Dehydrogenase Total Protein Albumin Arterial Blood Glucose Arterial Blood Ionized Calcium Urine WBC (Auto) Urine Creatinine Complement C3 Complement C4 Crossmatch 06/18/21 05:26 WBC RBC Hgb Hct MCV MCH MCHC RDW Plt Count Lymph % (Auto) [place] % (Auto) Lymph # (Auto) [place] # (Auto) Seg Neutrophils % Seg Neuts % (Manual) Lymphocytes % (Manual) Nucleated RBC % Seg Neutrophils # Seg Neutrophils # Man Lymphocytes # (Manual) PT INR APTT Fibrinogen ABG pH POC ABG pCO2 POC ABG pO2 ABG pO2 ABG HCO3 ABG Base Excess ABG Hemoglobin ABG Oxyhemoglobin ABG Sodium ABG Potassium ABG Chloride ABG Glucose Carboxyhemoglobin Sodium Potassium Chloride Carbon Dioxide BUN Creatinine Glucose POC Glucose 187 H Lactic Acid Calcium Phosphorus Magnesium Total Bilirubin AST ALT Alkaline Phosphatase Lactate Dehydrogenase Total Protein Albumin Arterial Blood Glucose Arterial Blood Ionized Calcium Urine WBC (Auto) Urine Creatinine Complement C3 Complement C4 Crossmatch
--- NOTE | 2021-06-18 12:03 | Progress Note ---
Assessment and Plan Assessment and plan: This is a 60-year-old female with no known medical history admitted s/p cardiac arrest, acute blood loss anemia 2/2 upper GI bleed, hemorrhagic shock requiring pressors, transaminitis, acute effects respiratory failure, lactic acidosis, PEG Neuro: Hypoxic anoxic encephalopathy vs. acute metabolic encephalopathy, ? Nonconvulsive seizure -CT head completed-> showed ill-defined differentiation of joseph and white matter which may reflect global hypoxic ischemic injury -MRI B completed-> subtle cortical signal abnormalities in the posterior cerebral hemispheres -Repeat MRI B pending -EEG pending -No sedation, PERRL Cardio: s/p cardiac arrest, HTN -norvasc started today -Monitor BP per protocol Respiratory: Acute hypoxic respiratory failure -Intubated 06/09 with 7.5 oett 22 @lips -[facility] consulted, appreciate recommendations -VAP bundle -Serial ABGs and CXR -AM vent settings: AC tidal volume 400, rate 14, FiO2 30% GI: Upper GI bleed, transminitis -s/p EGD on 06/10 with clip -protonix BID -Ntr consult for TF: Nepro @ 33 ml/hr, FWF 30 q 4 hrs -24 hour fluid balance: positive 710 : Acute kidney injury likely 2/2 to ATN or possible underlying glomerulonephritis requiring hemodialysis, anion gap metabolic acidosis -Nephrology consulted -HD per nephrology: MWF schedule -s/p pulse dose steriods -Renal ultrasound completed->no acute findings -Trend BMP -Vascular surgery consult if hemodynamically stable tomorrow per nephro Endo: Hyperglycemia -Likely due to patient receiving high-dose steroids -SSI -Accu-Cheks every 6 ID: Leukocytosis, s/p lactic acidosis -likely 2/2 to pulse dose steriods -06/09 BC with coag negative staphyloccus, 06/12 BC x2 NGTD/ UC no growth after 48 hours -S/p Rocephin, vancomycin -monitor WBC and fever curve Heme: Hemorrhagic shock secondary to upper GI bleed, acute blood loss anemia, coagulopathy -S/p 5 units PRBC -S/p endoscopy 06/10 with treatment being a presumed location of bleed -Trend CBC and INR -Avoid chemical anticoagulation in setting of recent GI bleed -Transfuse for hemoglobin less than 7 The high probability of a clinically significant, sudden or life threatening deterioration of the [multi] system(s) required my full and direct attention, intervention and personal management. The aggregate critical care time was [60] minutes. This time is in addition to time spent performing reported procedures but includes the following: [x] Data Review and interpretation [x] Patient assessment and monitoring of vital signs [x] Documentation [x] Medication orders and management Disposition Plan: icu Total Time Spent with Patient (Minutes): 60 History Interval history: This is a 60-year-old female with unknown medical history who was found down and unconscious by EMS on 06/09 who initiated CPR in transit and achieved ROSC. Upon arrival to the emergency department patient had hemoglobin of 3 and gastric lavage revealed coffee-ground emesis which later progressed to dark red blood. Patient was intubated in the emergency department and was found to be hypoglycemic which was treated with dextrose. Patient was also hypotensive and received 500 mL bolus, 3 units of PRBC and Levophed was initiated and titrated up to 20. Patient was admitted to the hospital service s/p cardiac arrest, acute hypoxic respiratory failure, severe anemia 2/2 to upper GI bleed with consults to cardiology, nephrology, gastroenterology and [facility]. 06/09: Patient was pending possible transfer to outside hospital for HLOC; however, no hospital had available ICU beds. The decision was made to have the patient undergo upper endoscopy on 06/10/2021. The patient continue to be monitored closely in the ED. 06/10: EGD with clip 06/11: Discontinue ceftriaxone 1 g every 24 hours and vancomycin 1 g every 12 hours; negative growth on blood culture x48 hours. Discontinue Levophed and vasopressin. 06/12: neprohlogy consult 06/16/2021: GI signed off. Will continue protonix BID. Stable hemoglobin. Patient tolerated HD yesterday and will have another session today. 06/17/2021: Increased white blood cell count. Afebrile. Second session of HD yesterday, patient tolerated well. Plan for HD MWF. Updates discussed with family via iPad. 06/18: HD today, neurology contacted for update. added norvasc today for persistent hypertension. Started on low dose SSI. MRI B and EEG pending Hospitalist Physical - Constitutional Vitals: Temp Pulse Resp BP Pulse Ox 97.4 F L 102 H 27 H 156/105 95 06/18/21 08:00 06/18/21 10:34 06/18/21 10:00 06/18/21 10:34 06/18/21 10:00 General appearance: Present: no acute distress - EENT Eyes: Present: PERRL, EOM intact ENT: clear oral mucosa - Neck Neck: Present: normal ROM - Respiratory Respiratory effort: normal Respiratory: bilateral: diminished - Cardiovascular Rhythm: regular Heart Sounds: Present: S1 & S2. Absent: systolic murmur, diastolic murmur - Extremities Extremities: no ischemia, pulses intact, pulses symmetrical, No edema, normal temperature, normal color Peripheral Pulses: within normal limits - Abdominal General gastrointestinal: soft, non-tender, non-distended, normal bowel sounds - Integumentary Integumentary: Present: warm, dry - Psychiatric Psychiatric: other - Allied Health Allied health notes reviewed: nursing, social work HEART Score - HEART Score EKG: Normal Age: 45-65 Troponin: Troponin T < 0.010 ng/mL (0.00-0.029) 06/09/21 03:27 - Critical Actions Critical Actions: 4-6 pts:12-16.6% risk of adverse cardiac event. Should be admitted Results - Labs CBC & Chem 7: 06/18/21 04:00 06/18/21 04:00 Labs: Laboratory Last Values WBC 22.8 K/mm3 (4.5-11.0) H 06/18/21 04:00 RBC 3.51 M/mm3 (3.65-5.03) L 06/18/21 04:00 Hgb 8.8 gm/dl (10.1-14.3) L 06/18/21 04:00 Hct 26.7 % (30.3-42.9) L 06/18/21 04:00 MCV 76 fl (79-97) L 06/18/21 04:00 MCH 25 pg (28-32) L 06/18/21 04:00 MCHC 33 % (30-34) 06/18/21 04:00 RDW 22.7 % (13.2-15.2) H 06/18/21 04:00 Plt Count 136 K/mm3 (140-440) L 06/18/21 04:00 Lymph % (Auto) 5.4 % (13.4-35.0) L 06/12/21 04:03 Hart % (Auto) Wallpaper Printer Helper 06/15/21 04:30 Eos % (Auto) Wallpaper Printer Helper 06/15/21 04:30 Baso % (Auto) 0.1 % (0.0-1.8) 06/12/21 04:03 Lymph # (Auto) 0.8 K/mm3 (1.2-5.4) L 06/12/21 04:03 Hart # (Auto) Wallpaper Printer Helper 06/15/21 04:30 Eos # (Auto) Wallpaper Printer Helper 06/15/21 04:30 Baso # (Auto) Wallpaper Printer Helper 06/15/21 04:30 Add Manual Diff Complete 06/15/21 04:30 Total Counted 100 06/15/21 04:30 Seg Neutrophils % Wallpaper Printer Helper 06/15/21 04:30 Seg Neuts % (Manual) 90.0 % (40.0-70.0) H 06/15/21 04:30 Band Neutrophils % 2.0 % 06/15/21 04:30 Lymphocytes % (Manual) 2.0 % (13.4-35.0) L 06/15/21 04:30 Reactive Lymphs % (Man) 1.0 % 06/15/21 04:30 Monocytes % (Manual) 5.0 % (0.0-7.3) 06/15/21 04:30 Nucleated RBC % 1.0 % (0.0-0.9) H 06/15/21 04:30 Seg Neutrophils # Wallpaper Printer Helper 06/15/21 04:30 Seg Neutrophils # Man 10.1 K/mm3 (1.8-7.7) H 06/15/21 04:30 Band Neutrophils # 0.2 K/mm3 06/15/21 04:30 Lymphocytes # (Manual) 0.2 K/mm3 (1.2-5.4) L 06/15/21 04:30 Abs React Lymphs (Man) 0.1 K/mm3 06/15/21 04:30 Monocytes # (Manual) 0.6 K/mm3 (0.0-0.8) 06/15/21 04:30 Eosinophils # (Manual) 0.0 K/mm3 (0.0-0.4) 06/15/21 04:30 Basophils # (Manual) 0.0 K/mm3 (0.0-0.1) 06/15/21 04:30 Metamyelocytes # 0.0 K/mm3 06/15/21 04:30 Myelocytes # 0.0 K/mm3 06/15/21 04:30 Promyelocytes # 0.0 K/mm3 06/15/21 04:30 Blast Cells # 0.0 K/mm3 06/15/21 04:30 WBC Morphology Not Reportable 06/15/21 04:30 Hypersegmented Neuts Not Reportable 06/15/21 04:30 Hyposegmented Neuts Not Reportable 06/15/21 04:30 Hypogranular Neuts Not Reportable 06/15/21 04:30 Smudge Cells Not Reportable 06/15/21 04:30 Toxic Granulation Not Reportable 06/15/21 04:30 Toxic Vacuolation Not Reportable 06/15/21 04:30 Dohle Bodies Not Reportable 06/15/21 04:30 Pelger-Huet Anomaly Not Reportable 06/15/21 04:30 Gui Rods Not Reportable 06/15/21 04:30 Platelet Estimate Consistent w auto 06/15/21 04:30 Clumped Platelets Not Reportable 06/15/21 04:30 Plt Clumps, EDTA Not Reportable 06/15/21 04:30 Large Platelets Not Reportable 06/15/21 04:30 Giant Platelets Not Reportable 06/15/21 04:30 Platelet Satelliting Not Reportable 06/15/21 04:30 Plt Morphology Comment Not Reportable 06/15/21 04:30 RBC Morphology Not Reportable 06/15/21 04:30 Dimorphic RBCs Not Reportable 06/15/21 04:30 Polychromasia Not Reportable 06/15/21 04:30 Hypochromasia 2+ 06/15/21 04:30 Poikilocytosis 1+ 06/15/21 04:30 Anisocytosis 2+ 06/15/21 04:30 Microcytosis 1+ 06/15/21 04:30 Macrocytosis Not Reportable 06/15/21 04:30 Spherocytes Not Reportable 06/15/21 04:30 Pappenheimer Bodies Not Reportable 06/15/21 04:30 Sickle Cells Not Reportable 06/15/21 04:30 Target Cells 1+ 06/15/21 04:30 Tear Drop Cells Not Reportable 06/15/21 04:30 Ovalocytes Not Reportable 06/15/21 04:30 Helmet Cells Not Reportable 06/15/21 04:30 [place] Bodies Not Reportable 06/15/21 04:30 [place] Rings Not Reportable 06/15/21 04:30 Anel Cells Not Reportable 06/15/21 04:30 Bite Cells Not Reportable 06/15/21 04:30 Crenated Cell Not Reportable 06/15/21 04:30 Elliptocytes Not Reportable 06/15/21 04:30 Acanthocytes (Spur) Not Reportable 06/15/21 04:30 Rouleaux Not Reportable 06/15/21 04:30 Hemoglobin C Crystals Not Reportable 06/15/21 04:30 Schistocytes Not Reportable 06/15/21 04:30 Malaria parasites Not Reportable 06/15/21 04:30 Narendra Bodies Not Reportable 06/15/21 04:30 Hem Pathologist Commnt No 06/15/21 04:30 PT 16.3 Sec. (12.2-14.9) H 06/18/21 04:00 INR 1.26 (0.87-1.13) H 06/18/21 04:00 APTT 52.6 Sec. (24.2-36.6) H 06/09/21 12:27 Fibrinogen 83 mg/dl (211-480) L* 06/09/21 12:27 ABG pH 7.419 (7.320-7.450) 06/15/21 03:39 POC ABG pCO2 21.2 mmHg (32.0-48.0) L 06/15/21 03:39 ABG pCO2 24.1 mm Hg 06/12/21 04:50 POC ABG pO2 146.6 mmHg (83-108) H 06/15/21 03:39 ABG pO2 127.8 mm Hg (80.0-90.0) H 06/12/21 04:50 POC ABG HCO3 13.4 06/15/21 03:39 ABG HCO3 13.2 mmol/L (20.0-26.0) L 06/12/21 04:50 ABG O2 Saturation 99.0 (0-100) 06/15/21 03:39 ABG O2 Content 12.0 (0.0-44) 06/12/21 04:50 POC ABG Base Excess -9.8 06/15/21 03:39 ABG Base Excess -11.0 mmol/L (-2.0-3.0) L 06/12/21 04:50 ABG Hemoglobin 8.0 (12.0-17.5) L 06/15/21 03:39 ABG Oxyhemoglobin 98.0 (94-98) 06/15/21 03:39 ABG Carboxyhemoglobin 1.4 % (0.0-5.0) 06/12/21 04:50 ABG Methemoglobin 0.3 (0.0-1.5) 06/15/21 03:39 ABG Sodium 145.2 mmol/L (136.0-145.0) H 06/15/21 03:39 ABG Potassium 3.9 mmol/L (3.40-4.50) 06/15/21 03:39 ABG Chloride 120.0 mmol/L (98-107) H 06/15/21 03:39 ABG Glucose 126 mg/dL (65-95) H 06/15/21 03:39 Oxyhemoglobin 96.6 % (95.0-99.0) 06/12/21 04:50 Carboxyhemoglobin 0.7 (0.5-1.5) 06/15/21 03:39 FiO2 30 % 06/12/21 04:50 FiO2 % 30.0 06/15/21 03:39 Sodium 144 mmol/L (137-145) 06/18/21 04:00 Potassium 3.5 mmol/L (3.6-5.0) L 06/18/21 04:00 Chloride 102.3 mmol/L (98-107) 06/18/21 04:00 Carbon Dioxide 23 mmol/L (22-30) 06/18/21 04:00 Anion Gap 22 mmol/L 06/18/21 04:00 BUN 79 mg/dL (7-17) H 06/18/21 04:00 Creatinine 6.2 mg/dL (0.6-1.2) H 06/18/21 04:00 Estimated GFR 8 ml/min 06/18/21 04:00 BUN/Creatinine Ratio 13 % 06/18/21 04:00 Glucose 203 mg/dL (65-100) H 06/18/21 04:00 POC Glucose 197 mg/dL (70-105) H 06/18/21 11:46 Lactic Acid 1.70 mmol/L (0.7-2.0) 06/11/21 12:12 Calcium 7.9 mg/dL (8.4-10.2) L 06/18/21 04:00 Phosphorus 6.70 mg/dL (2.5-4.5) H 06/12/21 04:03 Magnesium 1.70 mg/dL (1.7-2.3) 06/12/21 04:03 Total Bilirubin 5.30 mg/dL (0.1-1.2) H 06/16/21 06:15 AST 306 units/L (5-40) H 06/16/21 06:15 ALT 201 units/L (7-56) H 06/16/21 06:15 Alkaline Phosphatase 195 units/L (35-129) H 06/16/21 06:15 Ammonia 32.0 umol/L (25-60) 06/11/21 14:48 Lactate Dehydrogenase 2208 units/L (91-180) H 06/09/21 11:44 Troponin T < 0.010 ng/mL (0.00-0.029) 06/09/21 03:27 Total Protein 5.9 g/dL (6.3-8.2) L D 06/16/21 06:15 Albumin 2.4 g/dL (3.9-5) L 06/16/21 06:15 Albumin/Globulin Ratio 0.7 % 06/16/21 06:15 TSH 0.315 mlU/mL (0.270-4.200) 06/11/21 14:48 Arterial Blood Glucose 126 mg/dL (65-95) H 06/15/21 03:39 Arterial Blood Ionized Calcium 3.5 mg/dL (4.6-5.3) L 06/14/21 04:35 Urine Color Yellow (Yellow) 06/10/21 08:47 Urine Turbidity Cloudy (Clear) 06/10/21 08:47 Urine pH 5.0 (5.0-7.0) 06/10/21 08:47 Ur Specific Harmony 1.016 (1.003-1.030) 06/10/21 08:47 Urine Protein 100 mg/dl mg/dL (Negative) 06/10/21 08:47 Urine Glucose (UA) 150 mg/dL (Negative) 06/10/21 08:47 Urine Ketones Neg mg/dL (Negative) 06/10/21 08:47 Urine Blood Lg (Negative) 06/10/21 08:47 Urine Nitrite Neg (Negative) 06/10/21 08:47 Urine Bilirubin Neg (Negative) 06/10/21 08:47 Urine Urobilinogen < 2.0 mg/dL (<2.0) 06/10/21 08:47 Ur Leukocyte Esterase Tr (Negative) 06/10/21 08:47 Urine WBC (Auto) 23.0 /HPF (0.0-6.0) H 06/10/21 08:47 Urine RBC (Auto) 67.0 /HPF (0.0-6.0) 06/10/21 08:47 U Epithel Cells (Auto) 5.0 /HPF (0-13.0) 06/10/21 08:47 Urine Bacteria (Auto) 1+ /HPF (Negative) 06/10/21 08:47 Ur Transition Epith Cell 2 /HPF 06/10/21 08:47 Hyaline Casts 1 /LPF 06/10/21 08:47 Urine Mucus Few /HPF 06/10/21 08:47 Urine Creatinine 28.0 mg/dL (0.1-20.0) H 06/13/21 00:16 Urine Sodium 109 mmol/L 06/13/21 00:16 Urine Opiates Screen Negative 06/18/21 11:09 Urine Methadone Screen Negative 06/18/21 11:09 Ur Barbiturates Screen Negative 06/18/21 11:09 Ur Phencyclidine Scrn Negative 06/18/21 11:09 Ur Amphetamines Screen Negative 06/18/21 11:09 U Benzodiazepines Scrn Positive 06/18/21 11:09 Urine Cocaine Screen Negative 06/18/21 11:09 U Marijuana (THC) Screen Positive 06/18/21 11:09 Drugs of Abuse Note Disclamer 06/14/21 10:00 Complement C3 40 mg/dL (83-193) L 06/12/21 20:15 Complement C4 4 mg/dL (15-57) L 06/12/21 20:15 Coronavirus (PCR) Negative (Negative) 06/09/21 13:12 Hepatitis A IgM Ab Non-reactive (NonReactive) 06/15/21 09:55 Hep Bs Antigen Nonreactive (Negative) 06/15/21 09:55 Hep B Core IgM Ab Non-reactive (NonReactive) 06/15/21 09:55 Hepatitis C Antibody Non-reactive (NonReactive) 06/15/21 09:55 Blood Type B POSITIVE 06/09/21 04:00 Antibody Screen Negative 06/09/21 04:00 Crossmatch See Detail 06/09/21 04:00 Microbiology: Microbiology 06/12/21 08:59 Peripheral/Venous Blood Culture - Final NO GROWTH AFTER 5 DAYS 06/12/21 08:59 Peripheral/Venous Blood Culture - Final NO GROWTH AFTER 5 DAYS Esparza/IV: Voiding Method Indwelling Catheter Active Medications - Current Medications Current Medications: Generic Name Dose Route Start Last Admin Trade Name Freq PRN Reason Stop Dose Admin Amlodipine Besylate 5 mg 06/18/21 10:00 06/18/21 10:34 Amlodipine 5 Mg Tab PO 5 mg QDAY GABINO Administration Lipase/Protease/Amylase 1 each 06/14/21 16:23 Lipase 10,500/Protease 25,000/Amylase 43,750 (Units) Dr Aponte FEEDTUBE PRN PRN For Clogged Feeding Tube Dextrose 50 ml 06/09/21 11:13 Dextrose 50% In Water (25gm) 50 Ml Syringe IV Q30MIN PRN Hypoglycemia Protocol Fentanyl 25 mcg 06/14/21 15:21 06/15/21 10:31 Fentanyl 100 Mcg/2 Ml Inj IV 25 mcg Q4HR PRN Administration Pain, Moderate (4-6) Hydrophilic Ointment 1 applic 06/09/21 03:26 06/12/21 20:00 Lip Therapy Vaseline TP 1 applic Q2HR PRN Administration Dry Lips Sodium Chloride 100 mls @ 999 mls/hr 06/17/21 11:14 Nacl 0.9% IV BURKE PRN Hypotension Insulin Human Regular 0 units 06/18/21 12:00 Insulin Regular, Human 100 Units/1 Ml SUB-Q Q6H GABINO Protocol Multi-Ingred Cream/Lotion/Oil/Oint 1 applic 06/09/21 03:26 06/12/21 20:05 Mineral Oil/Petrolatum, White Ophth Oint 3.5 Gm OU 1 applic Q4HR PRN Administration Dry Eye(s) Pantoprazole Sodium 40 mg 06/15/21 22:00 06/18/21 10:34 Pantoprazole 40 Mg Inj IV 40 mg BID GABINO Administration Simple Syrup 15 ml 06/14/21 16:23 Simple Syrup 15 Ml FEEDTUBE PRN PRN Hypoglycemia Simple Syrup 30 ml 06/14/21 16:23 Simple Syrup 15 Ml FEEDTUBE PRN PRN Hypoglycemia Sodium Bicarbonate 325 mg 06/14/21 16:23 Sodium Bicarbonate 325 Mg Tab FEEDTUBE PRN PRN For Clogged Feeding Tube Sodium Chloride 10 ml 06/09/21 22:00 06/18/21 10:34 Sodium Chloride 0.9% 10 Ml Flush Syringe IV 10 ml BID GABINO Administration Sodium Chloride 10 ml 06/09/21 11:13 Sodium Chloride 0.9% 10 Ml Flush Syringe IV PRN PRN LINE FLUSH Nutrition/Malnutrition Assess - Dietary Evaluation Nutrition/Malnutrition Findings: Nutrition Notes Start: 06/11/21 15:21 Freq: Status: Active Protocol: Document 06/18/21 11:23 GB (Rec: 06/18/21 11:35 GB [id number]) Nutrition Notes Initial or Follow up Reassessment Current Diagnosis Acute Kidney Injury, Respiratory Failure Other Pertinent Diagnosis metabolic encephalopathy, GI bleed, intubated Current Diet NPO, TF Nepro @ 33ml/hr Labs/Tests 06/18: K 3.5, BUN 79, creainine 6.2, glucose 203, Ca 7.9 Pertinent Medications fentanyl, NaCl Height 5 ft 3 in Weight 57.2 kg [place] Body Weight (kg) 52.27 BMI 22.3 Weight change and time frame No significant changes recorded. Weight is stable. She is 109% IBW. Weight Status Appropriate Subjective/Other Information Per MD notes 06/18: Now on HD, no signs of Renal recovery seen, waiting to speak with family of continual care. Pt stable on current care. Per chart: last BM 06/16 Percent of energy/protein needs met: currently 0% with NPO 06/14: TF Nepro goal rate of 33ml/hr meets 100% or greater of estimated energy needs. 06/18: continues Burn Absent Trauma Absent GI Symptoms Other Food Allergy No Skin Integrity/Comment No reported complications Current % PO Other Minimum of two criteria No #1 Nutrition Diagnosis Inadequate energy intake Comments: 06/13: Intubation continues, NPOx4 days 06/14: TF trial, trickle feeds started. Formula Nepro start rate 10ml/hr (meets 30% or greater estimated energy needs ) 06/18: TF Vital AF 1.2 at goal of 33ml/hr meets 100% or greater of estimated energy needs. Vent continues. Etiology Intubated, GI Bleed As Evidenced by Signs and Symptoms NPO, intubation Diagnosis Progress(for reassessment Continues documentation) Is patient on ventilator? Yes Is Patient Ambulatory and/or Out of Bed No REE-([place]-St. Jeor-confined to bed) 1344.324 Kcal/Kg value to use for calculation 25 Approximate Energy Requirements Using 1430 kcal/Kg Calculation Used for Recommendations Kcal/kg Additional Notes Protein 1-1.2 g/kg @ 57k- 68g Fluids: 1 ml/kcal or per MD Nutrition Intervention Change Diet Order: Continue NPO, if extubated begin Clear liquids (no red colored clears) 06/14: Begin TF: Nepro @ 33ml/ hr: Start rate 10ml/hr advance 5ml/8hr or per tolerance to goal. Flush: 25ml/hr 06/18 continue TF at goal 33ml/ hr as tolerated. Nutrition Support: Nepro @ 33ml/hr: Start rate 10ml/hr advance 5ml/8hr or per tolerance to goal. Flush: 25ml/hr Kcal 1,425 Protein (gm) 64 Fat (gm) 76 Fluid (mL) 575 Goal #1 Extubate and advance diet to clear liquids 06/14: not met, continues 06/18: not met, continues. Now on TF at goal rate 33ml/hr Nepro Goal #2 If intubation continues, begin TPN post central line placement 06/14: changed, okay to start TF trial 06/18: nepro, at goal 33ml/hr tolerating Goal #3 Tolerate TF Nepro at start rate of 10ml/hr 06/18: advanced to goal 33ml/hr , resolved Goal #4 Tolerate TF Nepro at goal rate of 33ml/hr 06/18: met, continues Follow-Up By: 06/21/21 Additional Comments f/u: TF tolerance or extubated and diet advanced clear liquids
[2021-06-18] MEDS: INSULIN REGULAR, HUMAN 100 UNITS/1 ML SUB-Q SCH (12:50)
[2021-06-18] MEDS ORDERED: SODIUM CHLORIDE 0.9% 1000 ML 1,000 ML ONE (16:59)
[2021-06-19] MEDS: fentaNYL 100 MCG/2 ML INJ IV PRN ×2 (00:52→21:29)
[2021-06-19] MEDS: INSULIN REGULAR, HUMAN 100 UNITS/1 ML SUB-Q SCH ×4 (00:53→18:33)
[2021-06-19 05:40] LABS: Hemoglobin 9.3 gm/dl (10.1-14.3); Mean Corpuscular HGB Conc 32 % (30-34); Mean Corpuscular Volume 77 fl (79-97); Platelet Count 116 K/mm3 (140-440); Red Blood Count 3.77 M/mm3 (3.65-5.03)
[2021-06-19 05:52] LABS: Red Cell Distribution Width 22.9 % (13.2-15.2)
[2021-06-19 05:56] LABS: Albumin 2.4 g/dL (3.9-5); Calcium 7.9 mg/dL (8.4-10.2)
--- NOTE | 2021-06-19 08:29 | History and Physical Report ---
History of Present Illness Date of admission: 06/09/21 12:26 Past History Past Medical History: No medical history (Unable to obtain further medical history given patient's clinical status) Medications and Allergies Allergies Allergy/AdvReac Type Severity Reaction Status Date / Time No Known Allergies Allergy Verified 05/22/16 22:45 Home Medications Medication Instructions Recorded Confirmed Last Taken Type No Known Home Medications [No 06/09/21 06/09/21 Unknown History Reported Home Medications] Active Meds: Active Medications Amlodipine Besylate (Amlodipine 5 Mg Tab) 5 mg PO QDAY [facility] Last Admin: 06/18/21 10:34 Dose: 5 mg Documented by: Lipase/Protease/Amylase (Lipase 10,500/Protease 25,000/Amylase 43,750 (Units) Dr Aponte) 1 each FEEDTUBE PRN PRN PRN Reason: For Clogged Feeding Tube Dextrose (Dextrose 50% In Water (25gm) 50 Ml Syringe) 50 ml IV Q30MIN PRN; Prot ocol PRN Reason: Hypoglycemia Fentanyl (Fentanyl 100 Mcg/2 Ml Inj) 25 mcg IV Q4HR PRN PRN Reason: Pain, Moderate (4-6) Last Admin: 06/19/21 00:52 Dose: 25 mcg Documented by: Hydrophilic Ointment (Lip Therapy Vaseline) 1 applic TP Q2HR PRN PRN Reason: Dry Lips Last Admin: 06/12/21 20:00 Dose: 1 applic Documented by: Sodium Chloride (Nacl 0.9%) 100 mls @ 999 mls/hr IV BURKE PRN PRN Reason: Hypotension Insulin Human Regular (Insulin Regular, Human 100 Units/1 Ml) 0 units SUB-Q Q6H [facility]; Protocol Last Admin: 06/19/21 00:53 Dose: Not Given Documented by: Multi-Ingred Cream/Lotion/Oil/Oint (Mineral Oil/Petrolatum, White Ophth Oint 3.5 Gm) 1 applic OU Q4HR PRN PRN Reason: Dry Eye(s) Last Admin: 06/12/21 20:05 Dose: 1 applic Documented by: Pantoprazole Sodium (Pantoprazole 40 Mg Inj) 40 mg IV BID [facility] Last Admin: 06/18/21 21:04 Dose: 40 mg Documented by: Simple Syrup (Simple Syrup 15 Ml) 15 ml FEEDTUBE PRN PRN PRN Reason: Hypoglycemia Simple Syrup (Simple Syrup 15 Ml) 30 ml FEEDTUBE PRN PRN PRN Reason: Hypoglycemia Sodium Bicarbonate (Sodium Bicarbonate 325 Mg Tab) 325 mg FEEDTUBE PRN PRN PRN Reason: For Clogged Feeding Tube Sodium Chloride (Sodium Chloride 0.9% 10 Ml Flush Syringe) 10 ml IV BID GABINO Last Admin: 06/18/21 21:05 Dose: 10 ml Documented by: Sodium Chloride (Sodium Chloride 0.9% 10 Ml Flush Syringe) 10 ml IV PRN PRN PRN Reason: LINE FLUSH Exam - Constitutional Vitals: Temp Pulse Resp BP Pulse Ox 98.9 F 104 H 23 125/91 91 06/19/21 03:16 06/19/21 07:00 06/19/21 07:00 06/19/21 07:00 06/19/21 07:00 HEART Score - HEART Score EKG: Normal Age: 45-65 Troponin: Troponin T < 0.010 ng/mL (0.00-0.029) 06/09/21 03:27 - Critical Actions Critical Actions: 4-6 pts:12-16.6% risk of adverse cardiac event. Should be admitted Results - Labs CBC & Chem 7: 06/19/21 05:00 06/19/21 Unknown Labs: Laboratory Last Values WBC 36.4 K/mm3 (4.5-11.0) H 06/19/21 05:00 RBC 3.77 M/mm3 (3.65-5.03) 06/19/21 05:00 Hgb 9.3 gm/dl (10.1-14.3) L 06/19/21 05:00 Hct 29.0 % (30.3-42.9) L 06/19/21 05:00 MCV 77 fl (79-97) L 06/19/21 05:00 MCH 25 pg (28-32) L 06/19/21 05:00 MCHC 32 % (30-34) 06/19/21 05:00 RDW 22.9 % (13.2-15.2) H 06/19/21 05:00 Plt Count 116 K/mm3 (140-440) L 06/19/21 05:00 Lymph % (Auto) 5.4 % (13.4-35.0) L 06/12/21 04:03 [place] % (Auto) [employer] 06/15/21 04:30 Eos % (Auto) [employer] Operator 06/15/21 04:30 Baso % (Auto) 0.1 % (0.0-1.8) 06/12/21 04:03 Lymph # (Auto) 0.8 K/mm3 (1.2-5.4) L 06/12/21 04:03 [place] # (Auto) Ble[employer] Operator 06/15/21 04:30 Eos # (Auto) [employer] Operator 06/15/21 04:30 Baso # (Auto) [employer] Operator 06/15/21 04:30 Add Manual Diff Complete 06/15/21 04:30 Total Counted 100 06/15/21 04:30 Seg Neutrophils % [employer] 06/15/21 04:30 Seg Neuts % (Manual) 90.0 % (40.0-70.0) H 06/15/21 04:30 Band Neutrophils % 2.0 % 06/15/21 04:30 Lymphocytes % (Manual) 2.0 % (13.4-35.0) L 06/15/21 04:30 Reactive Lymphs % (Man) 1.0 % 06/15/21 04:30 Monocytes % (Manual) 5.0 % (0.0-7.3) 06/15/21 04:30 Nucleated RBC % 1.0 % (0.0-0.9) H 06/15/21 04:30 Seg Neutrophils # [employer] Operator 06/15/21 04:30 Seg Neutrophils # Man 10.1 K/mm3 (1.8-7.7) H 06/15/21 04:30 Band Neutrophils # 0.2 K/mm3 06/15/21 04:30 Lymphocytes # (Manual) 0.2 K/mm3 (1.2-5.4) L 06/15/21 04:30 Abs React Lymphs (Man) 0.1 K/mm3 06/15/21 04:30 Monocytes # (Manual) 0.6 K/mm3 (0.0-0.8) 06/15/21 04:30 Eosinophils # (Manual) 0.0 K/mm3 (0.0-0.4) 06/15/21 04:30 Basophils # (Manual) 0.0 K/mm3 (0.0-0.1) 06/15/21 04:30 Metamyelocytes # 0.0 K/mm3 06/15/21 04:30 Myelocytes # 0.0 K/mm3 06/15/21 04:30 Promyelocytes # 0.0 K/mm3 06/15/21 04:30 Blast Cells # 0.0 K/mm3 06/15/21 04:30 WBC Morphology Not Reportable 06/15/21 04:30 Hypersegmented Neuts Not Reportable 06/15/21 04:30 Hyposegmented Neuts Not Reportable 06/15/21 04:30 Hypogranular Neuts Not Reportable 06/15/21 04:30 Smudge Cells Not Reportable 06/15/21 04:30 Toxic Granulation Not Reportable 06/15/21 04:30 Toxic Vacuolation Not Reportable 06/15/21 04:30 Dohle Bodies Not Reportable 06/15/21 04:30 Pelger-Huet Anomaly Not Reportable 06/15/21 04:30 Gui Rods Not Reportable 06/15/21 04:30 Platelet Estimate Consistent w auto 06/15/21 04:30 Clumped Platelets Not Reportable 06/15/21 04:30 Plt Clumps, EDTA Not Reportable 06/15/21 04:30 Large Platelets Not Reportable 06/15/21 04:30 Giant Platelets Not Reportable 06/15/21 04:30 Platelet Satelliting Not Reportable 06/15/21 04:30 Plt Morphology Comment Not Reportable 06/15/21 04:30 RBC Morphology Not Reportable 06/15/21 04:30 Dimorphic RBCs Not Reportable 06/15/21 04:30 Polychromasia Not Reportable 06/15/21 04:30 Hypochromasia 2+ 06/15/21 04:30 Poikilocytosis 1+ 06/15/21 04:30 Anisocytosis 2+ 06/15/21 04:30 Microcytosis 1+ 06/15/21 04:30 Macrocytosis Not Reportable 06/15/21 04:30 Spherocytes Not Reportable 06/15/21 04:30 Pappenheimer Bodies Not Reportable 06/15/21 04:30 Sickle Cells Not Reportable 06/15/21 04:30 Target Cells 1+ 06/15/21 04:30 Tear Drop Cells Not Reportable 06/15/21 04:30 Ovalocytes Not Reportable 06/15/21 04:30 Helmet Cells Not Reportable 06/15/21 04:30 [place] Bodies Not Reportable 06/15/21 04:30 Prue Rings Not Reportable 06/15/21 04:30 [place] Cells Not Reportable 06/15/21 04:30 Bite Cells Not Reportable 06/15/21 04:30 Crenated Cell Not Reportable 06/15/21 04:30 Elliptocytes Not Reportable 06/15/21 04:30 Acanthocytes (Spur) Not Reportable 06/15/21 04:30 Rouleaux Not Reportable 06/15/21 04:30 Hemoglobin C Crystals Not Reportable 06/15/21 04:30 Schistocytes Not Reportable 06/15/21 04:30 Malaria parasites Not Reportable 06/15/21 04:30 Narendra Bodies Not Reportable 06/15/21 04:30 Hem Pathologist Commnt No 06/15/21 04:30 PT 16.3 Sec. (12.2-14.9) H 06/18/21 04:00 INR 1.26 (0.87-1.13) H 06/18/21 04:00 APTT 52.6 Sec. (24.2-36.6) H 06/09/21 12:27 Fibrinogen 83 mg/dl (211-480) L* 06/09/21 12:27 ABG pH 7.419 (7.320-7.450) 06/15/21 03:39 POC ABG pCO2 21.2 mmHg (32.0-48.0) L 06/15/21 03:39 ABG pCO2 24.1 mm Hg 06/12/21 04:50 POC ABG pO2 146.6 mmHg (83-108) H 06/15/21 03:39 ABG pO2 127.8 mm Hg (80.0-90.0) H 06/12/21 04:50 POC ABG HCO3 13.4 06/15/21 03:39 ABG HCO3 13.2 mmol/L (20.0-26.0) L 06/12/21 04:50 ABG O2 Saturation 99.0 (0-100) 06/15/21 03:39 ABG O2 Content 12.0 (0.0-44) 06/12/21 04:50 POC ABG Base Excess -9.8 06/15/21 03:39 ABG Base Excess -11.0 mmol/L (-2.0-3.0) L 06/12/21 04:50 ABG Hemoglobin 8.0 (12.0-17.5) L 06/15/21 03:39 ABG Oxyhemoglobin 98.0 (94-98) 06/15/21 03:39 ABG Carboxyhemoglobin 1.4 % (0.0-5.0) 06/12/21 04:50 ABG Methemoglobin 0.3 (0.0-1.5) 06/15/21 03:39 ABG Sodium 145.2 mmol/L (136.0-145.0) H 06/15/21 03:39 ABG Potassium 3.9 mmol/L (3.40-4.50) 06/15/21 03:39 ABG Chloride 120.0 mmol/L (98-107) H 06/15/21 03:39 ABG Glucose 126 mg/dL (65-95) H 06/15/21 03:39 Oxyhemoglobin 96.6 % (95.0-99.0) 06/12/21 04:50 Carboxyhemoglobin 0.7 (0.5-1.5) 06/15/21 03:39 FiO2 30 % 06/12/21 04:50 FiO2 % 30.0 06/15/21 03:39 Sodium 142 mmol/L (137-145) 06/19/21 Unknown Potassium 3.2 mmol/L (3.6-5.0) L 06/19/21 Unknown Chloride 99.3 mmol/L (98-107) 06/19/21 Unknown Carbon Dioxide 26 mmol/L (22-30) 06/19/21 Unknown Anion Gap 20 mmol/L 06/19/21 Unknown BUN 55 mg/dL (7-17) H 06/19/21 Unknown Creatinine 4.0 mg/dL (0.6-1.2) H 06/19/21 Unknown Estimated GFR 14 ml/min 06/19/21 Unknown BUN/Creatinine Ratio 14 % 06/19/21 Unknown Glucose 152 mg/dL (65-100) H 06/19/21 Unknown POC Glucose 144 mg/dL (70-105) H 06/19/21 05:06 Lactic Acid 1.70 mmol/L (0.7-2.0) 06/11/21 12:12 Calcium 7.9 mg/dL (8.4-10.2) L 06/19/21 Unknown Phosphorus 4.20 mg/dL (2.5-4.5) 06/19/21 Unknown Magnesium 1.60 mg/dL (1.7-2.3) L 06/19/21 Unknown Total Bilirubin 4.30 mg/dL (0.1-1.2) H 06/19/21 Unknown AST 181 units/L (5-40) H 06/19/21 Unknown ALT 149 units/L (7-56) H 06/19/21 Unknown Alkaline Phosphatase 379 units/L (35-129) H 06/19/21 Unknown Ammonia 32.0 umol/L (25-60) 06/11/21 14:48 Lactate Dehydrogenase 2208 units/L (91-180) H 06/09/21 11:44 Troponin T < 0.010 ng/mL (0.00-0.029) 06/09/21 03:27 Total Protein 6.6 g/dL (6.3-8.2) 06/19/21 Unknown Albumin 2.4 g/dL (3.9-5) L 06/19/21 Unknown Albumin/Globulin Ratio 0.6 % 06/19/21 Unknown TSH 0.315 mlU/mL (0.270-4.200) 06/11/21 14:48 Arterial Blood Glucose 126 mg/dL (65-95) H 06/15/21 03:39 Arterial Blood Ionized Calcium 3.5 mg/dL (4.6-5.3) L 06/14/21 04:35 Urine Color Yellow (Yellow) 06/10/21 08:47 Urine Turbidity Cloudy (Clear) 06/10/21 08:47 Urine pH 5.0 (5.0-7.0) 06/10/21 08:47 Ur Specific [place] 1.016 (1.003-1.030) 06/10/21 08:47 Urine Protein 100 mg/dl mg/dL (Negative) 06/10/21 08:47 Urine Glucose (UA) 150 mg/dL (Negative) 06/10/21 08:47 Urine Ketones Neg mg/dL (Negative) 06/10/21 08:47 Urine Blood Lg (Negative) 06/10/21 08:47 Urine Nitrite Neg (Negative) 06/10/21 08:47 Urine Bilirubin Neg (Negative) 06/10/21 08:47 Urine Urobilinogen < 2.0 mg/dL (<2.0) 06/10/21 08:47 Ur Leukocyte Esterase Tr (Negative) 06/10/21 08:47 Urine WBC (Auto) 23.0 /HPF (0.0-6.0) H 06/10/21 08:47 Urine RBC (Auto) 67.0 /HPF (0.0-6.0) 06/10/21 08:47 U Epithel Cells (Auto) 5.0 /HPF (0-13.0) 06/10/21 08:47 Urine Bacteria (Auto) 1+ /HPF (Negative) 06/10/21 08:47 Ur Transition Epith Cell 2 /HPF 06/10/21 08:47 Hyaline Casts 1 /LPF 06/10/21 08:47 Urine Mucus Few /HPF 06/10/21 08:47 Urine Creatinine 28.0 mg/dL (0.1-20.0) H 06/13/21 00:16 Urine Sodium 109 mmol/L 06/13/21 00:16 Urine Opiates Screen Negative 06/18/21 11:09 Urine Methadone Screen Negative 06/18/21 11:09 Ur Barbiturates Screen Negative 06/18/21 11:09 Ur Phencyclidine Scrn Negative 06/18/21 11:09 Ur Amphetamines Screen Negative 06/18/21 11:09 U Benzodiazepines Scrn Positive 06/18/21 11:09 Urine Cocaine Screen Negative 06/18/21 11:09 U Marijuana (THC) Screen Positive 06/18/21 11:09 Drugs of Abuse Note Disclamer 06/18/21 11:09 Complement C3 40 mg/dL (83-193) L 06/12/21 20:15 Complement C4 4 mg/dL (15-57) L 06/12/21 20:15 Coronavirus (PCR) Negative (Negative) 06/09/21 13:12 Hepatitis A IgM Ab Non-reactive (NonReactive) 06/15/21 09:55 Hep Bs Antigen Nonreactive (Negative) 06/15/21 09:55 Hep B Core IgM Ab Non-reactive (NonReactive) 06/15/21 09:55 Hepatitis C Antibody Non-reactive (NonReactive) 06/15/21 09:55 Blood Type B POSITIVE 06/09/21 04:00 Antibody Screen Negative 06/09/21 04:00 Crossmatch See Detail 06/09/21 04:00 [place]/IV: Voiding Method Indwelling Catheter
[2021-06-19] MEDS: PANTOPRAZOLE 40 MG INJ IV SCH (09:05)
[2021-06-19] MEDS: amLODIPine 5 MG TAB PO SCH (09:05)
--- NOTE | 2021-06-19 09:23 | Progress Note ---
Assessment and Plan 60 y/o female with cardiac arrest, intubated found to have UPPER GI bleed but no exact source of bleeding found 06/19/21: UDS is still positive for benzo's and now still positive for marijuana. Await MRI as recommended by neuro, hopeful for EEG today. Follow up renal recs. Having loose stools with elevate white count. Will send C. Diff toxin screen. Hold on empiric abx therapy for right now. Need neurology to speak with family as mental status is now our biggest issue. 06/18/21: Check UDS today. Will speak with renal about overall perspective on prognosis. Will need neurology to weigh in again as we need to speak to the f amily soon about goals of care. Continue supportive measures. 06/15/21: Hold on checking UDS today given that dialysis will start today. Steroids today. Monitor blood sugars. Await neurology input in regards to MRI reading. Patient was hypoglycemic on admission (20). MRI mentions that hypogly cemia could cause current presentation seen on MRI. Sugars have been stable since admission. Ok with increasing tube feeds as she tolerated trickle feeds. HgB at 7.5 this am. No evidence of acute bleed. repeat tomorrow and if less than 7 then transfuse. If large drop then would need to reconsult GI. Guarded prognosis. 06/14/21: UDS still positive for benzo's. Spoke with renal and went ahead and put HD catheter in (spoke with all of family on speaker phone) in anticipation of possible HD. Will check daily UDS until clear as this could effect mental state, along with uremia and possible anoxic brain injury. Await MRI and await Neurology input. Guarded prognosis. 06/13/21: Will check UDS daily to see if benzo's continue to hang around. Not sure if dialysis can help but may need this to clear out drugs to see if patient will wake up. Renal has already seen today so await there assessment tomorrow after viewing my note. repeat UDS again as patient is still making urine. No new neurology notes or follow up. MRI not done, head CT suggests anoxic brain injury but not definite. Still think that all other metabolic derangements would need to be addressed. Guarded prognosis. 06/12/21: Reviewed chart and Neurology note. Will send UDS to make sure benzo's have cleared as she was on a versed drip. Discontinued all mind altering therapy. Very guarded prognosis. Patient may have been down longer than known with CPR. 1. Discontinue all sedation 2. Attempt PSV and then extubate 3. Follow up GI recs 4. Will continue to follow, with serial H/H's. CCT 31 minutes. Subjective Date of service: 06/19/21 Principal diagnosis: UGI bleed Interval history: Remains unresponsive. On vent. No sedation. Good sats. Was not tried on PSV yesterday. Had HD yesterday. Reviewed Neurology note. Objective Vital Signs - 12hr 06/18/21 06/18/21 06/18/21 22:00 23:00 23:09 Temperature Pulse Rate 99 H 97 H 101 H Pulse Rate [ From Monitor] Respiratory 24 20 15 Rate Blood Pressure 152/104 154/108 154/108 O2 Sat by Pulse 98 99 100 Oximetry 06/18/21 06/18/21 06/19/21 23:32 23:57 00:00 Temperature 98.4 F Pulse Rate 97 H 99 H Pulse Rate [ 113 H From Monitor] Respiratory 24 Rate Blood Pressure 157/100 162/107 O2 Sat by Pulse 94 91 Oximetry 06/19/21 06/19/21 06/19/21 01:00 02:00 03:00 Temperature Pulse Rate 108 H 101 H 115 H Pulse Rate [ From Monitor] Respiratory 25 H 25 H 31 H Rate Blood Pressure 148/94 137/95 163/112 O2 Sat by Pulse 84 88 95 Oximetry 06/19/21 06/19/21 06/19/21 03:16 04:00 04:47 Temperature 98.9 F Pulse Rate 101 H 99 H Pulse Rate [ 112 H From Monitor] Respiratory 25 H Rate Blood Pressure 154/105 137/96 O2 Sat by Pulse 100 96 Oximetry 06/19/21 06/19/21 06/19/21 05:00 06:00 07:00 Temperature Pulse Rate 104 H 100 H 104 H Pulse Rate [ From Monitor] Respiratory 27 H 25 H 23 Rate Blood Pressure 137/95 119/79 125/91 O2 Sat by Pulse 93 90 91 Oximetry 06/19/21 06/19/21 06/19/21 08:00 08:52 09:00 Temperature 99.6 F Pulse Rate 119 H 104 H 122 H Pulse Rate [ 121 H From Monitor] Respiratory 30 H 27 H Rate Blood Pressure 153/113 164/116 149/102 O2 Sat by Pulse 93 92 93 Oximetry 06/19/21 09:05 Temperature Pulse Rate 120 H Pulse Rate [ From Monitor] Respiratory Rate Blood Pressure 149/102 O2 Sat by Pulse Oximetry Constitutional: other (intubated, critically ill) Eyes: non-icteric Neck: supple Effort: normal Ascultation: Bilateral: other Cardiovascular: regular rate and rhythm (no mrg) Gastrointestinal: normoactive bowel sounds Integumentary: normal Extremities: no cyanosis, no edema, pink and warm Neurologic: other (unresponsive) Psychiatric: other (unable to assess) CBC and BMP: 06/19/21 05:00 06/19/21 Unknown ABG, PT/INR, D-dimer: ABG ABG pH 7.419 (7.320-7.450) 06/15/21 03:39 POC ABG pCO2 21.2 mmHg (32.0-48.0) L 06/15/21 03:39 ABG pCO2 24.1 mm Hg 06/12/21 04:50 POC ABG pO2 146.6 mmHg (83-108) H 06/15/21 03:39 ABG pO2 127.8 mm Hg (80.0-90.0) H 06/12/21 04:50 POC ABG HCO3 13.4 06/15/21 03:39 ABG O2 Saturation 99.0 (0-100) 06/15/21 03:39 PT/INR, D-dimer PT 16.3 Sec. (12.2-14.9) H 06/18/21 04:00 INR 1.26 (0.87-1.13) H 06/18/21 04:00 Abnormal lab findings: Abnormal Labs 06/09/21 06/09/21 06/09/21 03:27 03:42 03:59 WBC RBC 1.57 L Hgb 3.0 L* Hct 11.8 L* MCV 75 L MCH 19 L MCHC 26 L RDW 21.7 H Plt Count 109 L Lymph % (Auto) 9.7 L Gillespie % (Auto) 8.5 H Lymph # (Auto) 0.9 L Gillespie # (Auto) Seg Neutrophils % 81.2 H Seg Neuts % (Manual) Lymphocytes % (Manual) Nucleated RBC % Seg Neutrophils # Seg Neutrophils # Man Lymphocytes # (Manual) PT INR APTT Fibrinogen ABG pH POC ABG pCO2 POC ABG pO2 ABG pO2 ABG HCO3 ABG Base Excess ABG Hemoglobin ABG Oxyhemoglobin ABG Sodium ABG Potassium ABG Chloride ABG Glucose Carboxyhemoglobin Sodium Potassium Chloride 95.2 L Carbon Dioxide 8 L* BUN 18 H Creatinine Glucose 540 H* POC Glucose Lactic Acid 28.20 H* Calcium 11.5 H Phosphorus Magnesium Total Bilirubin AST 411 H ALT 106 H Alkaline Phosphatase Lactate Dehydrogenase Total Protein 4.9 L Albumin 2.4 L Arterial Blood Glucose Arterial Blood Ionized Calcium Urine WBC (Auto) Urine Creatinine Complement C3 Complement C4 Crossmatch 06/09/21 06/09/21 06/09/21 03:59 04:00 04:04 WBC RBC Hgb Hct MCV MCH MCHC RDW Plt Count Lymph % (Auto) Gillespie % (Auto) Lymph # (Auto) Gillespie # (Auto) Seg Neutrophils % Seg Neuts % (Manual) Lymphocytes % (Manual) Nucleated RBC % Seg Neutrophils # Seg Neutrophils # Man Lymphocytes # (Manual) PT 34.3 H INR 3.36 H APTT 66.3 H* Fibrinogen ABG pH 6.845 L POC ABG pCO2 POC ABG pO2 116.6 H ABG pO2 ABG HCO3 ABG Base Excess ABG Hemoglobin 2.6 L ABG Oxyhemoglobin 90.6 L ABG Sodium ABG Potassium 3.0 L ABG Chloride ABG Glucose 334 H Carboxyhemoglobin 1.8 H Sodium Potassium Chloride Carbon Dioxide BUN Creatinine Glucose POC Glucose Lactic Acid Calcium Phosphorus Magnesium Total Bilirubin AST ALT Alkaline Phosphatase Lactate Dehydrogenase Total Protein Albumin Arterial Blood Glucose 334 H Arterial Blood Ionized Calcium Urine WBC (Auto) Urine Creatinine Complement C3 Complement C4 Crossmatch See Detail 06/09/21 06/09/21 06/09/21 05:16 11:42 11:44 WBC RBC Hgb Hct MCV MCH MCHC RDW Plt Count Lymph % (Auto) Gillespie % (Auto) Lymph # (Auto) Gillespie # (Auto) Seg Neutrophils % Seg Neuts % (Manual) Lymphocytes % (Manual) Nucleated RBC % Seg Neutrophils # Seg Neutrophils # Man Lymphocytes # (Manual) PT INR APTT Fibrinogen ABG pH POC ABG pCO2 POC ABG pO2 ABG pO2 ABG HCO3 ABG Base Excess ABG Hemoglobin ABG Oxyhemoglobin ABG Sodium ABG Potassium ABG Chloride ABG Glucose Carboxyhemoglobin Sodium Potassium Chloride 109.5 H Carbon Dioxide 4 L* BUN 19 H Creatinine Glucose 158 H POC Glucose 191 H Lactic Acid 25.20 H* Calcium 7.8 L D Phosphorus Magnesium Total Bilirubin AST ALT Alkaline Phosphatase Lactate Dehydrogenase 2208 H Total Protein Albumin Arterial Blood Glucose Arterial Blood Ionized Calcium Urine WBC (Auto) Urine Creatinine Complement C3 Complement C4 Crossmatch 06/09/21 06/09/21 06/10/21 12:27 12:27 04:21 WBC 14.2 H RBC 3.58 L Hgb 8.9 L D Hct 29.9 L D MCV MCH 25 L MCHC RDW 22.0 H Plt Count 94 L Lymph % (Auto) Gillespie % (Auto) Lymph # (Auto) Gillespie # (Auto) Seg Neutrophils % Seg Neuts % (Manual) 87.0 H Lymphocytes % (Manual) 5.0 L Nucleated RBC % Seg Neutrophils # Seg Neutrophils # Man 12.4 H Lymphocytes # (Manual) 0.7 L PT 36.0 H INR 3.58 H APTT 52.6 H Fibrinogen 83 L* ABG pH 7.323 L POC ABG pCO2 POC ABG pO2 ABG pO2 152.9 H ABG HCO3 12.6 L ABG Base Excess -12.0 L ABG Hemoglobin 9.2 L ABG Oxyhemoglobin ABG Sodium ABG Potassium ABG Chloride ABG Glucose Carboxyhemoglobin Sodium Potassium Chloride Carbon Dioxide BUN Creatinine Glucose POC Glucose Lactic Acid Calcium Phosphorus Magnesium Total Bilirubin AST ALT Alkaline Phosphatase Lactate Dehydrogenase Total Protein Albumin Arterial Blood Glucose Arterial Blood Ionized Calcium Urine WBC (Auto) Urine Creatinine Complement C3 Complement C4 Crossmatch 06/10/21 06/10/21 06/10/21 04:27 04:27 06:59 WBC 14.1 H RBC Hgb Hct MCV MCH 25 L MCHC RDW 20.0 H Plt Count 99 L Lymph % (Auto) 4.2 L Gillespie % (Auto) 8.6 H Lymph # (Auto) 0.6 L Gillespie # (Auto) 1.2 H Seg Neutrophils % 86.6 H Seg Neuts % (Manual) Lymphocytes % (Manual) Nucleated RBC % Seg Neutrophils # 12.2 H Seg Neutrophils # Man Lymphocytes # (Manual) PT INR APTT Fibrinogen ABG pH POC ABG pCO2 POC ABG pO2 ABG pO2 ABG HCO3 ABG Base Excess ABG Hemoglobin ABG Oxyhemoglobin ABG Sodium ABG Potassium ABG Chloride ABG Glucose Carboxyhemoglobin Sodium 146 H Potassium 3.4 L Chloride 115.2 H Carbon Dioxide 14 L D BUN 30 H Creatinine 1.9 H D Glucose 122 H POC Glucose Lactic Acid 4.60 H* Calcium 7.4 L Phosphorus Magnesium Total Bilirubin 7.00 H AST 2708 H ALT 522 H Alkaline Phosphatase Lactate Dehydrogenase Total Protein 4.8 L Albumin 2.4 L Arterial Blood Glucose Arterial Blood Ionized Calcium Urine WBC (Auto) Urine Creatinine Complement C3 Complement C4 Crossmatch 06/10/21 06/10/21 06/10/21 06:59 08:23 08:47 WBC RBC Hgb Hct MCV MCH MCHC RDW Plt Count Lymph % (Auto) Gillespie % (Auto) Lymph # (Auto) Gillespie # (Auto) Seg Neutrophils % Seg Neuts % (Manual) Lymphocytes % (Manual) Nucleated RBC % Seg Neutrophils # Seg Neutrophils # Man Lymphocytes # (Manual) PT 26.8 H INR 2.42 H APTT Fibrinogen ABG pH POC ABG pCO2 POC ABG pO2 ABG pO2 ABG HCO3 ABG Base Excess ABG Hemoglobin ABG Oxyhemoglobin ABG Sodium ABG Potassium ABG Chloride ABG Glucose Carboxyhemoglobin Sodium Potassium Chloride Carbon Dioxide BUN Creatinine Glucose POC Glucose 121 H Lactic Acid Calcium Phosphorus Magnesium Total Bilirubin AST ALT Alkaline Phosphatase Lactate Dehydrogenase Total Protein Albumin Arterial Blood Glucose Arterial Blood Ionized Calcium Urine WBC (Auto) 23.0 H Urine Creatinine Complement C3 Complement C4 Crossmatch 06/10/21 06/10/21 06/11/21 11:47 23:46 03:52 WBC RBC Hgb Hct MCV MCH MCHC RDW Plt Count Lymph % (Auto) Gillespie % (Auto) Lymph # (Auto) Gillespie # (Auto) Seg Neutrophils % Seg Neuts % (Manual) Lymphocytes % (Manual) Nucleated RBC % Seg Neutrophils # Seg Neutrophils # Man Lymphocytes # (Manual) PT INR APTT Fibrinogen ABG pH POC ABG pCO2 POC ABG pO2 ABG pO2 148.9 H ABG HCO3 13.0 L ABG Base Excess -10.1 L ABG Hemoglobin 9.1 L ABG Oxyhemoglobin ABG Sodium ABG Potassium ABG Chloride ABG Glucose Carboxyhemoglobin Sodium Potassium Chloride Carbon Dioxide BUN Creatinine Glucose POC Glucose Lactic Acid 4.40 H* 3.30 H* Calcium Phosphorus Magnesium Total Bilirubin AST ALT Alkaline Phosphatase Lactate Dehydrogenase Total Protein Albumin Arterial Blood Glucose Arterial Blood Ionized Calcium Urine WBC (Auto) Urine Creatinine Complement C3 Complement C4 Crossmatch 06/11/21 06/11/21 06/11/21 05:05 10:38 10:38 WBC 12.6 H RBC 3.38 L Hgb 8.5 L Hct 26.3 L MCV 78 L MCH 25 L MCHC RDW 20.6 H Plt Count 97 L Lymph % (Auto) Gillespie % (Auto) Lymph # (Auto) Gillespie # (Auto) Seg Neutrophils % Seg Neuts % (Manual) Lymphocytes % (Manual) Nucleated RBC % Seg Neutrophils # Seg Neutrophils # Man Lymphocytes # (Manual) PT 23.1 H INR 1.98 H APTT Fibrinogen ABG pH POC ABG pCO2 POC ABG pO2 ABG pO2 ABG HCO3 ABG Base Excess ABG Hemoglobin ABG Oxyhemoglobin ABG Sodium ABG Potassium ABG Chloride ABG Glucose Carboxyhemoglobin Sodium Potassium Chloride Carbon Dioxide BUN Creatinine Glucose POC Glucose Lactic Acid 2.40 H* Calcium Phosphorus Magnesium Total Bilirubin AST ALT Alkaline Phosphatase Lactate Dehydrogenase Total Protein Albumin Arterial Blood Glucose Arterial Blood Ionized Calcium Urine WBC (Auto) Urine Creatinine Complement C3 Complement C4 Crossmatch 06/11/21 06/11/21 06/11/21 10:38 10:38 12:15 WBC RBC Hgb Hct MCV MCH MCHC RDW Plt Count Lymph % (Auto) Gillespie % (Auto) Lymph # (Auto) Gillespie # (Auto) Seg Neutrophils % Seg Neuts % (Manual) Lymphocytes % (Manual) Nucleated RBC % Seg Neutrophils # Seg Neutrophils # Man Lymphocytes # (Manual) PT INR APTT Fibrinogen ABG pH POC ABG pCO2 POC ABG pO2 ABG pO2 ABG HCO3 ABG Base Excess ABG Hemoglobin ABG Oxyhemoglobin ABG Sodium ABG Potassium ABG Chloride ABG Glucose Carboxyhemoglobin Sodium 147 H Potassium Chloride 118.1 H Carbon Dioxide 11 L BUN 53 H Creatinine 3.2 H D Glucose 104 H POC Glucose Lactic Acid 2.30 H* Calcium 5.9 L* D 5.9 L* Phosphorus 7.10 H Magnesium 1.60 L Total Bilirubin 4.20 H AST 2252 H ALT 540 H Alkaline Phosphatase Lactate Dehydrogenase Total Protein 4.4 L Albumin 2.2 L Arterial Blood Glucose Arterial Blood Ionized Calcium Urine WBC (Auto) Urine Creatinine Complement C3 Complement C4 Crossmatch 06/11/21 06/11/21 06/12/21 14:48 17:45 04:03 WBC 14.7 H RBC Hgb 8.9 L 9.4 L 9.2 L Hct 29.6 L 28.6 L 28.0 L MCV 77 L MCH 25 L MCHC RDW 21.2 H Plt Count 112 L Lymph % (Auto) 5.4 L Gillespie % (Auto) 8.6 H Lymph # (Auto) 0.8 L Gillespie # (Auto) 1.3 H Seg Neutrophils % 85.8 H Seg Neuts % (Manual) Lymphocytes % (Manual) Nucleated RBC % Seg Neutrophils # 12.6 H Seg Neutrophils # Man Lymphocytes # (Manual) PT INR APTT Fibrinogen ABG pH POC ABG pCO2 POC ABG pO2 ABG pO2 ABG HCO3 ABG Base Excess ABG Hemoglobin ABG Oxyhemoglobin ABG Sodium ABG Potassium ABG Chloride ABG Glucose Carboxyhemoglobin Sodium Potassium Chloride Carbon Dioxide BUN Creatinine Glucose POC Glucose Lactic Acid Calcium Phosphorus Magnesium Total Bilirubin AST ALT Alkaline Phosphatase Lactate Dehydrogenase Total Protein Albumin Arterial Blood Glucose Arterial Blood Ionized Calcium Urine WBC (Auto) Urine Creatinine Complement C3 Complement C4 Crossmatch 06/12/21 06/12/21 06/12/21 04:03 04:03 04:50 WBC RBC Hgb Hct MCV MCH MCHC RDW Plt Count Lymph % (Auto) Gillespie % (Auto) Lymph # (Auto) Gillespie # (Auto) Seg Neutrophils % Seg Neuts % (Manual) Lymphocytes % (Manual) Nucleated RBC % Seg Neutrophils # Seg Neutrophils # Man Lymphocytes # (Manual) PT 24.1 H INR 2.10 H APTT Fibrinogen ABG pH POC ABG pCO2 POC ABG pO2 ABG pO2 127.8 H ABG HCO3 13.2 L ABG Base Excess -11.0 L ABG Hemoglobin 8.6 L ABG Oxyhemoglobin ABG Sodium ABG Potassium ABG Chloride ABG Glucose Carboxyhemoglobin Sodium 148 H Potassium Chloride 117.8 H Carbon Dioxide 17 L BUN 72 H Creatinine 4.6 H Glucose POC Glucose Lactic Acid Calcium 6.1 L Phosphorus 6.70 H Magnesium Total Bilirubin 3.40 H AST 1494 H ALT 512 H Alkaline Phosphatase Lactate Dehydrogenase Total Protein 4.4 L Albumin 2.2 L Arterial Blood Glucose Arterial Blood Ionized Calcium Urine WBC (Auto) Urine Creatinine Complement C3 Complement C4 Crossmatch 06/12/21 06/12/21 06/13/21 20:15 20:15 00:16 WBC RBC Hgb Hct MCV MCH MCHC RDW Plt Count Lymph % (Auto) Gillespie % (Auto) Lymph # (Auto) Gillespie # (Auto) Seg Neutrophils % Seg Neuts % (Manual) Lymphocytes % (Manual) Nucleated RBC % Seg Neutrophils # Seg Neutrophils # Man Lymphocytes # (Manual) PT INR APTT Fibrinogen ABG pH POC ABG pCO2 POC ABG pO2 ABG pO2 ABG HCO3 ABG Base Excess ABG Hemoglobin ABG Oxyhemoglobin ABG Sodium ABG Potassium ABG Chloride ABG Glucose Carboxyhemoglobin Sodium Potassium Chloride Carbon Dioxide BUN Creatinine Glucose POC Glucose Lactic Acid Calcium Phosphorus Magnesium Total Bilirubin AST ALT Alkaline Phosphatase Lactate Dehydrogenase Total Protein Albumin Arterial Blood Glucose Arterial Blood Ionized Calcium Urine WBC (Auto) Urine Creatinine 28.0 H Complement C3 40 L Complement C4 4 L Crossmatch 06/13/21 06/13/21 06/13/21 04:00 08:11 08:11 WBC RBC 3.51 L Hgb 8.9 L Hct 26.2 L MCV 75 L MCH 25 L MCHC RDW 21.3 H Plt Count 96 L Lymph % (Auto) Gillespie % (Auto) Lymph # (Auto) Gillespie # (Auto) Seg Neutrophils % Seg Neuts % (Manual) Lymphocytes % (Manual) Nucleated RBC % Seg Neutrophils # Seg Neutrophils # Man Lymphocytes # (Manual) PT INR APTT Fibrinogen ABG pH POC ABG pCO2 22.8 L POC ABG pO2 115.7 H ABG pO2 ABG HCO3 ABG Base Excess ABG Hemoglobin 7.2 L ABG Oxyhemoglobin ABG Sodium ABG Potassium ABG Chloride 119.0 H ABG Glucose 102 H Carboxyhemoglobin Sodium 147 H Potassium Chloride 117.2 H Carbon Dioxide 15 L BUN 96 H Creatinine 6.1 H Glucose 107 H POC Glucose Lactic Acid Calcium 6.2 L Phosphorus Magnesium Total Bilirubin AST ALT Alkaline Phosphatase Lactate Dehydrogenase Total Protein Albumin Arterial Blood Glucose 102 H Arterial Blood Ionized Calcium Urine WBC (Auto) Urine Creatinine Complement C3 Complement C4 Crossmatch 06/13/21 06/13/21 06/14/21 12:54 14:17 04:35 WBC RBC Hgb Hct MCV MCH MCHC RDW Plt Count Lymph % (Auto) Gillespie % (Auto) Lymph # (Auto) Gillespie # (Auto) Seg Neutrophils % Seg Neuts % (Manual) Lymphocytes % (Manual) Nucleated RBC % Seg Neutrophils # Seg Neutrophils # Man Lymphocytes # (Manual) PT 18.2 H INR 1.44 H APTT Fibrinogen ABG pH 7.507 H POC ABG pCO2 15.9 L POC ABG pO2 121.2 H ABG pO2 ABG HCO3 ABG Base Excess ABG Hemoglobin 6.3 L ABG Oxyhemoglobin ABG Sodium ABG Potassium ABG Chloride 119.0 H ABG Glucose Carboxyhemoglobin Sodium Potassium Chloride Carbon Dioxide BUN Creatinine Glucose POC Glucose 107 H Lactic Acid Calcium Phosphorus Magnesium Total Bilirubin AST ALT Alkaline Phosphatase Lactate Dehydrogenase Total Protein Albumin Arterial Blood Glucose Arterial Blood Ionized Calcium 3.5 L Urine WBC (Auto) Urine Creatinine Complement C3 Complement C4 Crossmatch 06/14/21 06/14/21 06/14/21 08:45 08:45 08:45 WBC RBC Hgb 9.3 L Hct 27.6 L MCV 75 L MCH 25 L MCHC RDW 21.9 H Plt Count 137 L Lymph % (Auto) Gillespie % (Auto) Lymph # (Auto) Gillespie # (Auto) Seg Neutrophils % Seg Neuts % (Manual) Lymphocytes % (Manual) Nucleated RBC % Seg Neutrophils # Seg Neutrophils # Man Lymphocytes # (Manual) PT 16.8 H INR 1.30 H APTT Fibrinogen ABG pH POC ABG pCO2 POC ABG pO2 ABG pO2 ABG HCO3 ABG Base Excess ABG Hemoglobin ABG Oxyhemoglobin ABG Sodium ABG Potassium ABG Chloride ABG Glucose Carboxyhemoglobin Sodium 147 H Potassium Chloride 115.5 H Carbon Dioxide 15 L BUN 107 H Creatinine 6.8 H Glucose POC Glucose Lactic Acid Calcium 6.7 L Phosphorus Magnesium Total Bilirubin 5.00 H AST 578 H ALT 298 H Alkaline Phosphatase Lactate Dehydrogenase Total Protein 5.6 L D Albumin 2.3 L Arterial Blood Glucose Arterial Blood Ionized Calcium Urine WBC (Auto) Urine Creatinine Complement C3 Complement C4 Crossmatch 06/14/21 06/15/21 06/15/21 23:31 03:39 04:30 WBC 11.2 H RBC 3.05 L Hgb 7.5 L Hct 23.3 L MCV 76 L MCH 25 L MCHC RDW 23.1 H Plt Count 109 L Lymph % (Auto) Gillespie % (Auto) Lymph # (Auto) Gillespie # (Auto) Seg Neutrophils % Seg Neuts % (Manual) 90.0 H Lymphocytes % (Manual) 2.0 L Nucleated RBC % 1.0 H Seg Neutrophils # Seg Neutrophils # Man 10.1 H Lymphocytes # (Manual) 0.2 L PT INR APTT Fibrinogen ABG pH POC ABG pCO2 21.2 L POC ABG pO2 146.6 H ABG pO2 ABG HCO3 ABG Base Excess ABG Hemoglobin 8.0 L ABG Oxyhemoglobin ABG Sodium 145.2 H ABG Potassium ABG Chloride 120.0 H ABG Glucose 126 H Carboxyhemoglobin Sodium Potassium Chloride Carbon Dioxide BUN Creatinine Glucose POC Glucose 108 H Lactic Acid Calcium Phosphorus Magnesium Total Bilirubin AST ALT Alkaline Phosphatase Lactate Dehydrogenase Total Protein Albumin Arterial Blood Glucose 126 H Arterial Blood Ionized Calcium Urine WBC (Auto) Urine Creatinine Complement C3 Complement C4 Crossmatch 06/15/21 06/15/21 06/15/21 04:30 04:30 05:14 WBC RBC Hgb Hct MCV MCH MCHC RDW Plt Count Lymph % (Auto) Gillespie % (Auto) Lymph # (Auto) Gillespie # (Auto) Seg Neutrophils % Seg Neuts % (Manual) Lymphocytes % (Manual) Nucleated RBC % Seg Neutrophils # Seg Neutrophils # Man Lymphocytes # (Manual) PT 18.9 H INR 1.53 H APTT Fibrinogen ABG pH POC ABG pCO2 POC ABG pO2 ABG pO2 ABG HCO3 ABG Base Excess ABG Hemoglobin ABG Oxyhemoglobin ABG Sodium ABG Potassium ABG Chloride ABG Glucose Carboxyhemoglobin Sodium 147 H Potassium Chloride 116.5 H Carbon Dioxide 16 L BUN 121 H Creatinine 8.6 H Glucose 147 H POC Glucose 125 H Lactic Acid Calcium 6.5 L Phosphorus Magnesium Total Bilirubin 5.10 H AST 349 H ALT 214 H Alkaline Phosphatase Lactate Dehydrogenase Total Protein 4.9 L Albumin 2.0 L Arterial Blood Glucose Arterial Blood Ionized Calcium Urine WBC (Auto) Urine Creatinine Complement C3 Complement C4 Crossmatch 06/15/21 06/15/21 06/15/21 11:38 17:07 23:24 WBC RBC Hgb Hct MCV MCH MCHC RDW Plt Count Lymph % (Auto) Gillespie % (Auto) Lymph # (Auto) Gillespie # (Auto) Seg Neutrophils % Seg Neuts % (Manual) Lymphocytes % (Manual) Nucleated RBC % Seg Neutrophils # Seg Neutrophils # Man Lymphocytes # (Manual) PT INR APTT Fibrinogen ABG pH POC ABG pCO2 POC ABG pO2 ABG pO2 ABG HCO3 ABG Base Excess ABG Hemoglobin ABG Oxyhemoglobin ABG Sodium ABG Potassium ABG Chloride ABG Glucose Carboxyhemoglobin Sodium Potassium Chloride Carbon Dioxide BUN Creatinine Glucose POC Glucose 160 H 161 H 166 H Lactic Acid Calcium Phosphorus Magnesium Total Bilirubin AST ALT Alkaline Phosphatase Lactate Dehydrogenase Total Protein Albumin Arterial Blood Glucose Arterial Blood Ionized Calcium Urine WBC (Auto) Urine Creatinine Complement C3 Complement C4 Crossmatch 06/16/21 06/16/21 06/16/21 05:47 06:15 06:15 WBC 12.2 H RBC 3.42 L Hgb 8.6 L Hct 25.7 L MCV 75 L MCH 25 L MCHC RDW 22.6 H Plt Count 121 L Lymph % (Auto) Gillespie % (Auto) Lymph # (Auto) Gillespie # (Auto) Seg Neutrophils % Seg Neuts % (Manual) Lymphocytes % (Manual) Nucleated RBC % Seg Neutrophils # Seg Neutrophils # Man Lymphocytes # (Manual) PT INR APTT Fibrinogen ABG pH POC ABG pCO2 POC ABG pO2 ABG pO2 ABG HCO3 ABG Base Excess ABG Hemoglobin ABG Oxyhemoglobin ABG Sodium ABG Potassium ABG Chloride ABG Glucose Carboxyhemoglobin Sodium 147 H Potassium Chloride 108.3 H Carbon Dioxide 15 L BUN 82 H Creatinine 6.6 H Glucose 178 H POC Glucose 136 H Lactic Acid Calcium 7.4 L Phosphorus Magnesium Total Bilirubin 5.30 H AST 306 H ALT 201 H Alkaline Phosphatase 195 H Lactate Dehydrogenase Total Protein 5.9 L D Albumin 2.4 L Arterial Blood Glucose Arterial Blood Ionized Calcium Urine WBC (Auto) Urine Creatinine Complement C3 Complement C4 Crossmatch 06/16/21 06/16/21 06/16/21 11:41 18:23 23:40 WBC RBC Hgb Hct MCV MCH MCHC RDW Plt Count Lymph % (Auto) Gillespie % (Auto) Lymph # (Auto) Gillespie # (Auto) Seg Neutrophils % Seg Neuts % (Manual) Lymphocytes % (Manual) Nucleated RBC % Seg Neutrophils # Seg Neutrophils # Man Lymphocytes # (Manual) PT INR APTT Fibrinogen ABG pH POC ABG pCO2 POC ABG pO2 ABG pO2 ABG HCO3 ABG Base Excess ABG Hemoglobin ABG Oxyhemoglobin ABG Sodium ABG Potassium ABG Chloride ABG Glucose Carboxyhemoglobin Sodium Potassium Chloride Carbon Dioxide BUN Creatinine Glucose POC Glucose 169 H 172 H 161 H Lactic Acid Calcium Phosphorus Magnesium Total Bilirubin AST ALT Alkaline Phosphatase Lactate Dehydrogenase Total Protein Albumin Arterial Blood Glucose Arterial Blood Ionized Calcium Urine WBC (Auto) Urine Creatinine Complement C3 Complement C4 Crossmatch 06/17/21 06/17/21 06/17/21 05:25 08:00 08:00 WBC 17.4 H RBC 3.62 L Hgb 9.1 L Hct 27.1 L MCV 75 L MCH 25 L MCHC RDW 22.8 H Plt Count Lymph % (Auto) Gillespie % (Auto) Lymph # (Auto) Gillespie # (Auto) Seg Neutrophils % Seg Neuts % (Manual) Lymphocytes % (Manual) Nucleated RBC % Seg Neutrophils # Seg Neutrophils # Man Lymphocytes # (Manual) PT INR APTT Fibrinogen ABG pH POC ABG pCO2 POC ABG pO2 ABG pO2 ABG HCO3 ABG Base Excess ABG Hemoglobin ABG Oxyhemoglobin ABG Sodium ABG Potassium ABG Chloride ABG Glucose Carboxyhemoglobin Sodium Potassium 3.5 L Chloride Carbon Dioxide BUN 51 H Creatinine 4.2 H Glucose 182 H POC Glucose 170 H Lactic Acid Calcium 7.5 L Phosphorus Magnesium Total Bilirubin AST ALT Alkaline Phosphatase Lactate Dehydrogenase Total Protein Albumin Arterial Blood Glucose Arterial Blood Ionized Calcium Urine WBC (Auto) Urine Creatinine Complement C3 Complement C4 Crossmatch 06/17/21 06/17/21 06/17/21 11:24 17:13 23:59 WBC RBC Hgb Hct MCV MCH MCHC RDW Plt Count Lymph % (Auto) Gillespie % (Auto) Lymph # (Auto) Gillespie # (Auto) Seg Neutrophils % Seg Neuts % (Manual) Lymphocytes % (Manual) Nucleated RBC % Seg Neutrophils # Seg Neutrophils # Man Lymphocytes # (Manual) PT INR APTT Fibrinogen ABG pH POC ABG pCO2 POC ABG pO2 ABG pO2 ABG HCO3 ABG Base Excess ABG Hemoglobin ABG Oxyhemoglobin ABG Sodium ABG Potassium ABG Chloride ABG Glucose Carboxyhemoglobin Sodium Potassium Chloride Carbon Dioxide BUN Creatinine Glucose POC Glucose 164 H 186 H 205 H Lactic Acid Calcium Phosphorus Magnesium Total Bilirubin AST ALT Alkaline Phosphatase Lactate Dehydrogenase Total Protein Albumin Arterial Blood Glucose Arterial Blood Ionized Calcium Urine WBC (Auto) Urine Creatinine Complement C3 Complement C4 Crossmatch 06/18/21 06/18/21 06/18/21 04:00 04:00 04:00 WBC 22.8 H RBC 3.51 L Hgb 8.8 L Hct 26.7 L MCV 76 L MCH 25 L MCHC RDW 22.7 H Plt Count 136 L Lymph % (Auto) Gillespie % (Auto) Lymph # (Auto) Gillespie # (Auto) Seg Neutrophils % Seg Neuts % (Manual) Lymphocytes % (Manual) Nucleated RBC % Seg Neutrophils # Seg Neutrophils # Man Lymphocytes # (Manual) PT 16.3 H INR 1.26 H APTT Fibrinogen ABG pH POC ABG pCO2 POC ABG pO2 ABG pO2 ABG HCO3 ABG Base Excess ABG Hemoglobin ABG Oxyhemoglobin ABG Sodium ABG Potassium ABG Chloride ABG Glucose Carboxyhemoglobin Sodium Potassium 3.5 L Chloride Carbon Dioxide BUN 79 H Creatinine 6.2 H Glucose 203 H POC Glucose Lactic Acid Calcium 7.9 L Phosphorus Magnesium Total Bilirubin AST ALT Alkaline Phosphatase Lactate Dehydrogenase Total Protein Albumin Arterial Blood Glucose Arterial Blood Ionized Calcium Urine WBC (Auto) Urine Creatinine Complement C3 Complement C4 Crossmatch 06/18/21 06/18/21 06/18/21 05:26 11:46 17:29 WBC RBC Hgb Hct MCV MCH MCHC RDW Plt Count Lymph % (Auto) Gillespie % (Auto) Lymph # (Auto) Gillespie # (Auto) Seg Neutrophils % Seg Neuts % (Manual) Lymphocytes % (Manual) Nucleated RBC % Seg Neutrophils # Seg Neutrophils # Man Lymphocytes # (Manual) PT INR APTT Fibrinogen ABG pH POC ABG pCO2 POC ABG pO2 ABG pO2 ABG HCO3 ABG Base Excess ABG Hemoglobin ABG Oxyhemoglobin ABG Sodium ABG Potassium ABG Chloride ABG Glucose Carboxyhemoglobin Sodium Potassium Chloride Carbon Dioxide BUN Creatinine Glucose POC Glucose 187 H 197 H 174 H Lactic Acid Calcium Phosphorus Magnesium Total Bilirubin AST ALT Alkaline Phosphatase Lactate Dehydrogenase Total Protein Albumin Arterial Blood Glucose Arterial Blood Ionized Calcium Urine WBC (Auto) Urine Creatinine Complement C3 Complement C4 Crossmatch 06/18/21 06/19/21 06/19/21 23:15 05:00 05:06 WBC 36.4 H RBC Hgb 9.3 L Hct 29.0 L MCV 77 L MCH 25 L MCHC RDW 22.9 H Plt Count 116 L Lymph % (Auto) Gillespie % (Auto) Lymph # (Auto) Gillespie # (Auto) Seg Neutrophils % Seg Neuts % (Manual) Lymphocytes % (Manual) Nucleated RBC % Seg Neutrophils # Seg Neutrophils # Man Lymphocytes # (Manual) PT INR APTT Fibrinogen ABG pH POC ABG pCO2 POC ABG pO2 ABG pO2 ABG HCO3 ABG Base Excess ABG Hemoglobin ABG Oxyhemoglobin ABG Sodium ABG Potassium ABG Chloride ABG Glucose Carboxyhemoglobin Sodium Potassium Chloride Carbon Dioxide BUN Creatinine Glucose POC Glucose 135 H 144 H Lactic Acid Calcium Phosphorus Magnesium Total Bilirubin AST ALT Alkaline Phosphatase Lactate Dehydrogenase Total Protein Albumin Arterial Blood Glucose Arterial Blood Ionized Calcium Urine WBC (Auto) Urine Creatinine Complement C3 Complement C4 Crossmatch 06/19/21 Unknown WBC RBC Hgb Hct MCV MCH MCHC RDW Plt Count Lymph % (Auto) Gillespie % (Auto) Lymph # (Auto) Gillespie # (Auto) Seg Neutrophils % Seg Neuts % (Manual) Lymphocytes % (Manual) Nucleated RBC % Seg Neutrophils # Seg Neutrophils # Man Lymphocytes # (Manual) PT INR APTT Fibrinogen ABG pH POC ABG pCO2 POC ABG pO2 ABG pO2 ABG HCO3 ABG Base Excess ABG Hemoglobin ABG Oxyhemoglobin ABG Sodium ABG Potassium ABG Chloride ABG Glucose Carboxyhemoglobin Sodium Potassium 3.2 L Chloride Carbon Dioxide BUN 55 H Creatinine 4.0 H Glucose 152 H POC Glucose Lactic Acid Calcium 7.9 L Phosphorus Magnesium 1.60 L Total Bilirubin 4.30 H AST 181 H ALT 149 H Alkaline Phosphatase 379 H Lactate Dehydrogenase Total Protein Albumin 2.4 L Arterial Blood Glucose Arterial Blood Ionized Calcium Urine WBC (Auto) Urine Creatinine Complement C3 Complement C4 Crossmatch Allied health notes reviewed: nursing
[2021-06-19] MEDS ORDERED: SODIUM CHLORIDE 0.9% 1000 ML 1,000 ML IV SCH (10:00)
--- NOTE | 2021-06-19 10:09 | Progress Note ---
Assessment and Plan - Patient Problems (1) Acute kidney failure Current Visit: Yes Status: Acute Plan to address problem: likely secondary to acute tubular necrosis in the setting of cardiac arrest and severely decreased hemoglobin levels in the setting of upper GI bleed. Urinalysis also concerning for evidence of microscopic hematuria and proteinur ia, indicating a possible underlying glomerulonephritis picture. Work up for acute GN initiated, Anti GBM Ab, ANCA vasculitis panel pending. Both C3/C4 levels are markedly decreased. Completed third dose of pulse steroids. avoid all nephrotoxins and maintain mean arterial pressures above 65 mmHg. Renal ultrasound reviewed without any acute abnormalities noted. Pt was initiated on HD, transitioning to MWF HD schedule, since no signs of renal recovery seen. Discussed with patient's daughter and sister regarding goals of care. They are in favor of maintaining full code status for now, currently waiting for neurology input to make further decisions. repeat MRI and EEG currently pending. Once neurological input is given and family still want to cont full aggressive care, will arrange permcath placement. (2) Cardiac arrest Current Visit: Yes Status: Acute Plan to address problem: With return of spontaneous circulation. Off pressor support at this time. Will monitor closely. (3) GI bleed Onset Date: ~06/09/21 Current Visit: Yes Status: Acute Qualifiers: GI bleed type/associated pathology: unspecified gastrointestinal hemorrhage type Qualified Code(s): K92.2 - Gastrointestinal hemorrhage, unspecified Plan to address problem: Pt is post emergent EGD showing large amount of old blood without any evidence of active bleeding sites noted. We will continue to monitor closely. Continues on Protonix drip. follow GI recommendations hemoglobin/hematocrit levels are stable this morning. (4) Acute respiratory failure Current Visit: Yes Status: Acute Plan to address problem: Ventilator management per pulmonology. Stable on current vent settings. Subjective Date of service: 06/19/21 Principal diagnosis: UGI bleed Interval history: Patient remains intubated on vent support. Pt remains oliguric, no signs of significant renal recovery. will probably need custodial HD. Objective - Vital Signs Vital signs: Vital Signs - 12hr 06/18/21 06/18/21 06/18/21 23:00 23:09 23:32 Temperature 98.4 F Pulse Rate 97 H 101 H Pulse Rate [ From Monitor] Respiratory 20 15 Rate Blood Pressure 154/108 154/108 O2 Sat by Pulse 99 100 Oximetry 06/18/21 06/19/21 06/19/21 23:57 00:00 01:00 Temperature Pulse Rate 97 H 99 H 108 H Pulse Rate [ 113 H From Monitor] Respiratory 24 25 H Rate Blood Pressure 157/100 162/107 148/94 O2 Sat by Pulse 94 91 84 Oximetry 06/19/21 06/19/21 06/19/21 02:00 03:00 03:16 Temperature 98.9 F Pulse Rate 101 H 115 H Pulse Rate [ From Monitor] Respiratory 25 H 31 H Rate Blood Pressure 137/95 163/112 O2 Sat by Pulse 88 95 Oximetry 06/19/21 06/19/21 06/19/21 04:00 04:47 05:00 Temperature Pulse Rate 101 H 99 H 104 H Pulse Rate [ 112 H From Monitor] Respiratory 25 H 27 H Rate Blood Pressure 154/105 137/96 137/95 O2 Sat by Pulse 100 96 93 Oximetry 06/19/21 06/19/21 06/19/21 06:00 07:00 08:00 Temperature 99.6 F Pulse Rate 100 H 104 H 119 H Pulse Rate [ 121 H From Monitor] Respiratory 25 H 23 30 H Rate Blood Pressure 119/79 125/91 153/113 O2 Sat by Pulse 90 91 93 Oximetry 06/19/21 06/19/21 06/19/21 08:52 09:00 09:05 Temperature Pulse Rate 104 H 122 H 120 H Pulse Rate [ From Monitor] Respiratory 27 H Rate Blood Pressure 164/116 149/102 149/102 O2 Sat by Pulse 92 93 Oximetry - General Appearance General appearance: well-developed, sedated on ventilator, intubated EENT: ATNC, PERRL, mucous membranes moist Neck: no JVD Respiratory: Present: Decreased Breath Sounds Cardiology: regular, S1S2 Gastrointestinal: normoactive bowel sounds Integumentary: no rash Neurologic: other (intubated, sedated ) - Lab 06/19/21 05:00 06/19/21 Unknown Most recent lab results ABG pH 7.419 (7.320-7.450) 06/15/21 03:39 ABG pCO2 24.1 mm Hg 06/12/21 04:50 ABG pO2 127.8 mm Hg (80.0-90.0) H 06/12/21 04:50 ABG HCO3 13.2 mmol/L (20.0-26.0) L 06/12/21 04:50 ABG O2 Saturation 99.0 (0-100) 06/15/21 03:39 Calcium 7.9 mg/dL (8.4-10.2) L 06/19/21 Unknown Phosphorus 4.20 mg/dL (2.5-4.5) 06/19/21 Unknown Magnesium 1.60 mg/dL (1.7-2.3) L 06/19/21 Unknown Urine Creatinine 28.0 mg/dL (0.1-20.0) H 06/13/21 00:16 Urine Sodium 109 mmol/L 06/13/21 00:16 Medications & Allergies - Medications Allergies/Adverse Reactions: Allergies No Known Allergies Allergy (Verified 05/22/16 22:45) Home Medications: Home Medications Medication Instructions Recorded Confirmed Last Taken Type No Known Home Medications [No 06/09/21 06/09/21 Unknown History Reported Home Medications] Active Medications: Generic Name Dose Route Start Last Admin Trade Name Freq PRN Reason Stop Dose Admin Amlodipine Besylate 5 mg 06/18/21 10:00 06/19/21 09:05 Amlodipine 5 Mg Tab PO 5 mg QDAY GABINO Administration Lipase/Protease/Amylase 1 each 06/14/21 16:23 Lipase 10,500/Protease 25,000/Amylase 43,750 (Units) Dr Aponte FEEDTUBE PRN PRN For Clogged Feeding Tube Dextrose 50 ml 06/09/21 11:13 Dextrose 50% In Water (25gm) 50 Ml Syringe IV Q30MIN PRN Hypoglycemia Protocol Fentanyl 25 mcg 06/14/21 15:21 06/19/21 00:52 Fentanyl 100 Mcg/2 Ml Inj IV 25 mcg Q4HR PRN Administration Pain, Moderate (4-6) Hydrophilic Ointment 1 applic 06/09/21 03:26 06/12/21 20:00 Lip Therapy Vaseline TP 1 applic Q2HR PRN Administration Dry Lips Sodium Chloride 100 mls @ 999 mls/hr 06/17/21 11:14 Nacl 0.9% IV BURKE PRN Hypotension Sodium Chloride 1,000 mls @ 75 mls/hr 06/19/21 10:00 Nacl 0.9% 1000 Ml IV 06/19/21 23:19 DIRECT [facility] Insulin Human Regular 0 units 06/18/21 12:00 06/19/21 09:06 Insulin Regular, Human 100 Units/1 Ml SUB-Q Not Given Q6H [facility] Protocol Multi-Ingred Cream/Lotion/Oil/Oint 1 applic 06/09/21 03:26 06/12/21 20:05 Mineral Oil/Petrolatum, White Ophth Oint 3.5 Gm OU 1 applic Q4HR PRN Administration Dry Eye(s) Pantoprazole Sodium 40 mg 06/15/21 22:00 06/19/21 09:05 Pantoprazole 40 Mg Inj IV 40 mg BID GABINO Administration Simple Syrup 15 ml 06/14/21 16:23 Simple Syrup 15 Ml FEEDTUBE PRN PRN Hypoglycemia Simple Syrup 30 ml 06/14/21 16:23 Simple Syrup 15 Ml FEEDTUBE PRN PRN Hypoglycemia Sodium Bicarbonate 325 mg 06/14/21 16:23 Sodium Bicarbonate 325 Mg Tab FEEDTUBE PRN PRN For Clogged Feeding Tube Sodium Chloride 10 ml 06/09/21 22:00 06/19/21 09:09 Sodium Chloride 0.9% 10 Ml Flush Syringe IV 10 ml BID GABINO Administration Sodium Chloride 10 ml 06/09/21 11:13 Sodium Chloride 0.9% 10 Ml Flush Syringe IV PRN PRN LINE FLUSH
--- NOTE | 2021-06-19 11:11 | XRay Report ---
XR abdomen 1V ap INDICATION / CLINICAL INFORMATION: ng tube placement COMPARISON: 06/18/2021 FINDINGS/IMPRESSION: Nasogastric tube tip terminates over the stomach. Side-port is located at the GE junction. Recommend further advancement. Otherwise unchanged. Signer Name: Adonay Ghotra MD Signed: 06/19/2021 11:07 AM Workstation Name: [facility] [facility] [email or web address]
--- NOTE | 2021-06-19 11:43 | Progress Note ---
<SANDRA CHU - Last Filed: 06/19/21 12:49> Assessment and Plan Assessment and plan: This is a 60-year-old female with no known past medical history who came in s/p cardiac arrest at home. Upon arrival to [facility], patient was found to have a hemoglobin of 3.0 possibly due to GIB, with acute metabolic encephalophy, acute respiratory failure, and PEG. Hospital Course to Date: 06/09: Patient was pending possible transfer to outside hospital for HLOC; however, no hospital had available ICU beds. The decision was made to have the patient undergo upper endoscopy on 06/10/2021. The patient continue to be monitored closely in the ED. 06/10: EGD with clip 06/11: Discontinue ceftriaxone 1 g every 24 hours and vancomycin 1 g every 12 hours; negative growth on blood culture x48 hours. Discontinue Levophed and vasopressin. 06/12: neprohlogy consult 06/14/21- Patient remains intubated, off sedation. Open eyes spontaneously with +gag and cough, but does not follow any commands. Tachypnea and tachycardia noted upon assess, low dose PRN fentanyl ordered for CPOT greater than 3. Plan for possible HD, VAs Cath placed by [facility]. D/w GI, okay to start trickle feed and transition to IV protonix BID tomorrow. 06/15/21- Patient still intubated with no significant change in Neuro status, MRI result noted, pending Neuro recommendation. D/w Nephro pulse dose steriods added X3 days and plan for HD today. Drop in H&H today, no signs of active bleeding, VSS, will continue to trend H&H. Patient is tolerating trickle feeds, per GI to keep TF at trickle feed for now. Continue to monitor renal function and H&H, am labs ordered 06/16/2021: GI signed off. Will continue protonix BID. Stable hemoglobin. Patient tolerated HD yesterday and will have another session today. 06/17/2021: Increased white blood cell count. Afebrile. Second session of HD yesterday, patient tolerated well. Plan for HD MWF. Updates discussed with family via iPad. 06/18: HD today, neurology contacted for update. added norvasc today for persistent hypertension. Started on low dose SSI. MRI B and EEG pending 06/19/21- Leukocytosis worse today, patient remains afebrile, patient with increased diarrhea. Patient is tachycardic and hypertensive. D/W [facility] plan for gentle IVF, NS at 75ml/hr for 1L, will check lactic and Cdiff. Switch norvac to Nifedipine Qday. Patient H&H remains stable, no s/s of any active bleeding, Hep SubQ added for VTE proph. Pending neuro recommendation, EEG and MRI brain pending. #Neuro: Acute encephalopathy - Hypoxic versus metabolic - 06/12 CT head showed ill-defined differentiation of joseph and white matter which could reflect global hypoxic ischemic injury - 06/14 MRI brain noted, please review report for detail - Pending Neuro recommendation - EEG pending - PRN Fentanyl added for CPOT goal greater than 3 - Neurology consulted, recs appreciated - Poor prognosis, family updated about findings #CV: S/p PEA arrest - ROSC achieved, s/p slow rewarming per protocol - SR to ST on the monitor - Normotensive, off pressors - Continue to monitor hydrodynamics #Resp: Acute hypoxic respiratory failure - Intubated on 06/09 - Vent setting: PRVC- 30%, 6, 14, 400 - AM ABG noted, d/w [facility] - PRN Fentanyl for Tachynea/CPOT greater than 3 - Continue daily ABGs - SBT per [facility] - Plan for extubation as mental status will allow #Transaminitis-likely secondary to shock versus alcohol abuse (unclear patient history) #Acute upper GI bleed -resolved #Acute blood loss anemia-resolved #Hemorrhagic shock requiring pressors -resolved - S/p 5 units of blood products - Endoscopy 06/10/21: Clipping of presumed location of bleed by GI - H&H stable, 9.3/27.6 today, will transfuse for hemoglobin less than 7 - s/p Rocephin, vancomycin and pressors - AST, ALT, T bili downtrending - Protonix gtt transitioned to IV push BID - Patient is tolerating trickle feeds - Patient to advance TF to goal once okayed by GI - Nutrition/Dietitian consulted for TF management - continue to trend H&H, am labs ordered #Acute kidney injury - Unknown baseline, creatinine up from 6.8--> 8.6 this am - 06/12 Renal ultrasound negative - Remains oliguric - D/w Nephro start - Nephrology following, recs appreciated - Plan for possible HD, VasCath placed by [facility] #Coagulopathy - will continue to trend INR - We will give vitamin K as needed #Endo: Hyperglycemia- resolved - Originally presented with hypoglycemia of 20 and required D50 x2 resulting in hyperglycemia - Continue BG check Q6hrs, if hyperglycemic consider SSI The high probability of a clinically significant, sudden or life threatening deterioration of the [neuro, pulmo, GI] system(s) required my full and direct attention, intervention and personal management. The aggregate critical care time was [60] minutes. This time is in addition to time spent performing reported procedures but includes the following: [x] Data Review and interpretation [x] Patient assessment and monitoring of vital signs [x] Documentation [x] Medication orders and management I saw and evaluated the patient. Discussed with the nurse practitioner and agree with their findings and plan as documented in this note. Disposition Plan: ICU Total Time Spent with Patient (Minutes): 60 Hospitalist Physical - Constitutional Vitals: Temp Pulse Resp BP Pulse Ox 99.6 F 120 H 27 H 149/102 93 06/19/21 08:00 06/19/21 09:05 06/19/21 09:00 06/19/21 09:05 06/19/21 09:00 General appearance: Present: no acute distress HEART Score - HEART Score EKG: Normal Age: 45-65 Troponin: Troponin T < 0.010 ng/mL (0.00-0.029) 06/09/21 03:27 - Critical Actions Critical Actions: 4-6 pts:12-16.6% risk of adverse cardiac event. Should be admitted Results - Labs CBC & Chem 7: 06/19/21 05:00 06/19/21 Unknown Labs: Laboratory Last Values WBC 36.4 K/mm3 (4.5-11.0) H 06/19/21 05:00 RBC 3.77 M/mm3 (3.65-5.03) 06/19/21 05:00 Hgb 9.3 gm/dl (10.1-14.3) L 06/19/21 05:00 Hct 29.0 % (30.3-42.9) L 06/19/21 05:00 MCV 77 fl (79-97) L 06/19/21 05:00 MCH 25 pg (28-32) L 06/19/21 05:00 MCHC 32 % (30-34) 06/19/21 05:00 RDW 22.9 % (13.2-15.2) H 06/19/21 05:00 Plt Count 116 K/mm3 (140-440) L 06/19/21 05:00 Lymph % (Auto) 5.4 % (13.4-35.0) L 06/12/21 04:03 Cache % (Auto) [place]her 06/15/21 04:30 Eos % (Auto) [place]her 06/15/21 04:30 Baso % (Auto) 0.1 % (0.0-1.8) 06/12/21 04:03 Lymph # (Auto) 0.8 K/mm3 (1.2-5.4) L 06/12/21 04:03 [place] # (Auto) Coal Washer 06/15/21 04:30 Eos # (Auto) Coal Washer 06/15/21 04:30 Baso # (Auto) Coal Washer 06/15/21 04:30 Add Manual Diff Complete 06/15/21 04:30 Total Counted 100 06/15/21 04:30 Seg Neutrophils % [place] Washer 06/15/21 04:30 Seg Neuts % (Manual) 90.0 % (40.0-70.0) H 06/15/21 04:30 Band Neutrophils % 2.0 % 06/15/21 04:30 Lymphocytes % (Manual) 2.0 % (13.4-35.0) L 06/15/21 04:30 Reactive Lymphs % (Man) 1.0 % 06/15/21 04:30 Monocytes % (Manual) 5.0 % (0.0-7.3) 06/15/21 04:30 Nucleated RBC % 1.0 % (0.0-0.9) H 06/15/21 04:30 Seg Neutrophils # [place] 06/15/21 04:30 Seg Neutrophils # Man 10.1 K/mm3 (1.8-7.7) H 06/15/21 04:30 Band Neutrophils # 0.2 K/mm3 06/15/21 04:30 Lymphocytes # (Manual) 0.2 K/mm3 (1.2-5.4) L 06/15/21 04:30 Abs React Lymphs (Man) 0.1 K/mm3 10/01/21 04:30 Monocytes # (Manual) 0.6 K/mm3 (0.0-0.8) 06/15/21 04:30 Eosinophils # (Manual) 0.0 K/mm3 (0.0-0.4) 06/15/21 04:30 Basophils # (Manual) 0.0 K/mm3 (0.0-0.1) 06/15/21 04:30 Metamyelocytes # 0.0 K/mm3 06/15/21 04:30 Myelocytes # 0.0 K/mm3 06/15/21 04:30 Promyelocytes # 0.0 K/mm3 06/15/21 04:30 Blast Cells # 0.0 K/mm3 06/15/21 04:30 WBC Morphology Not Reportable 06/15/21 04:30 Hypersegmented Neuts Not Reportable 06/15/21 04:30 Hyposegmented Neuts Not Reportable 06/15/21 04:30 Hypogranular Neuts Not Reportable 06/15/21 04:30 Smudge Cells Not Reportable 06/15/21 04:30 Toxic Granulation Not Reportable 06/15/21 04:30 Toxic Vacuolation Not Reportable 06/15/21 04:30 Dohle Bodies Not Reportable 06/15/21 04:30 Pelger-Huet Anomaly Not Reportable 06/15/21 04:30 Gui Rods Not Reportable 06/15/21 04:30 Platelet Estimate Consistent w auto 06/15/21 04:30 Clumped Platelets Not Reportable 06/15/21 04:30 Plt Clumps, EDTA Not Reportable 06/15/21 04:30 Large Platelets Not Reportable 06/15/21 04:30 Giant Platelets Not Reportable 06/15/21 04:30 Platelet Satelliting Not Reportable 06/15/21 04:30 Plt Morphology Comment Not Reportable 06/15/21 04:30 RBC Morphology Not Reportable 06/15/21 04:30 Dimorphic RBCs Not Reportable 06/15/21 04:30 Polychromasia Not Reportable 06/15/21 04:30 Hypochromasia 2+ 06/15/21 04:30 Poikilocytosis 1+ 06/15/21 04:30 Anisocytosis 2+ 06/15/21 04:30 Microcytosis 1+ 06/15/21 04:30 Macrocytosis Not Reportable 06/15/21 04:30 Spherocytes Not Reportable 06/15/21 04:30 Pappenheimer Bodies Not Reportable 06/15/21 04:30 Sickle Cells Not Reportable 06/15/21 04:30 Target Cells 1+ 06/15/21 04:30 Tear Drop Cells Not Reportable 06/15/21 04:30 Ovalocytes Not Reportable 06/15/21 04:30 Helmet Cells Not Reportable 06/15/21 04:30 [place] Bodies Not Reportable 06/15/21 04:30 Reeds Rings Not Reportable 06/15/21 04:30 Anel Cells Not Reportable 06/15/21 04:30 Bite Cells Not Reportable 06/15/21 04:30 Crenated Cell Not Reportable 06/15/21 04:30 Elliptocytes Not Reportable 06/15/21 04:30 Acanthocytes (Spur) Not Reportable 06/15/21 04:30 Rouleaux Not Reportable 06/15/21 04:30 Hemoglobin C Crystals Not Reportable 06/15/21 04:30 Schistocytes Not Reportable 06/15/21 04:30 Malaria parasites Not Reportable 06/15/21 04:30 Nraendra Bodies Not Reportable 06/15/21 04:30 Hem Pathologist Commnt No 06/15/21 04:30 PT 16.3 Sec. (12.2-14.9) H 06/18/21 04:00 INR 1.26 (0.87-1.13) H 06/18/21 04:00 APTT 52.6 Sec. (24.2-36.6) H 06/09/21 12:27 Fibrinogen 83 mg/dl (211-480) L* 06/09/21 12:27 ABG pH 7.419 (7.320-7.450) 06/15/21 03:39 POC ABG pCO2 21.2 mmHg (32.0-48.0) L 06/15/21 03:39 ABG pCO2 24.1 mm Hg 06/12/21 04:50 POC ABG pO2 146.6 mmHg (83-108) H 06/15/21 03:39 ABG pO2 127.8 mm Hg (80.0-90.0) H 06/12/21 04:50 POC ABG HCO3 13.4 06/15/21 03:39 ABG HCO3 13.2 mmol/L (20.0-26.0) L 06/12/21 04:50 ABG O2 Saturation 99.0 (0-100) 06/15/21 03:39 ABG O2 Content 12.0 (0.0-44) 06/12/21 04:50 POC ABG Base Excess -9.8 06/15/21 03:39 ABG Base Excess -11.0 mmol/L (-2.0-3.0) L 06/12/21 04:50 ABG Hemoglobin 8.0 (12.0-17.5) L 06/15/21 03:39 ABG Oxyhemoglobin 98.0 (94-98) 06/15/21 03:39 ABG Carboxyhemoglobin 1.4 % (0.0-5.0) 06/12/21 04:50 ABG Methemoglobin 0.3 (0.0-1.5) 06/15/21 03:39 ABG Sodium 145.2 mmol/L (136.0-145.0) H 06/15/21 03:39 ABG Potassium 3.9 mmol/L (3.40-4.50) 06/15/21 03:39 ABG Chloride 120.0 mmol/L (98-107) H 06/15/21 03:39 ABG Glucose 126 mg/dL (65-95) H 06/15/21 03:39 Oxyhemoglobin 96.6 % (95.0-99.0) 06/12/21 04:50 Carboxyhemoglobin 0.7 (0.5-1.5) 06/15/21 03:39 FiO2 30 % 06/12/21 04:50 FiO2 % 30.0 06/15/21 03:39 Sodium 142 mmol/L (137-145) 06/19/21 Unknown Potassium 3.2 mmol/L (3.6-5.0) L 06/19/21 Unknown Chloride 99.3 mmol/L (98-107) 06/19/21 Unknown Carbon Dioxide 26 mmol/L (22-30) 06/19/21 Unknown Anion Gap 20 mmol/L 06/19/21 Unknown BUN 55 mg/dL (7-17) H 06/19/21 Unknown Creatinine 4.0 mg/dL (0.6-1.2) H 06/19/21 Unknown Estimated GFR 14 ml/min 06/19/21 Unknown BUN/Creatinine Ratio 14 % 06/19/21 Unknown Glucose 152 mg/dL (65-100) H 06/19/21 Unknown POC Glucose 144 mg/dL (70-105) H 06/19/21 05:06 Lactic Acid 1.70 mmol/L (0.7-2.0) 06/11/21 12:12 Calcium 7.9 mg/dL (8.4-10.2) L 06/19/21 Unknown Phosphorus 4.20 mg/dL (2.5-4.5) 06/19/21 Unknown Magnesium 1.60 mg/dL (1.7-2.3) L 06/19/21 Unknown Total Bilirubin 4.30 mg/dL (0.1-1.2) H 06/19/21 Unknown AST 181 units/L (5-40) H 06/19/21 Unknown ALT 149 units/L (7-56) H 06/19/21 Unknown Alkaline Phosphatase 379 units/L (35-129) H 06/19/21 Unknown Ammonia 32.0 umol/L (25-60) 06/11/21 14:48 Lactate Dehydrogenase 2208 units/L (91-180) H 06/09/21 11:44 Troponin T < 0.010 ng/mL (0.00-0.029) 06/09/21 03:27 Total Protein 6.6 g/dL (6.3-8.2) 06/19/21 Unknown Albumin 2.4 g/dL (3.9-5) L 06/19/21 Unknown Albumin/Globulin Ratio 0.6 % 06/19/21 Unknown TSH 0.315 mlU/mL (0.270-4.200) 06/11/21 14:48 Arterial Blood Glucose 126 mg/dL (65-95) H 06/15/21 03:39 Arterial Blood Ionized Calcium 3.5 mg/dL (4.6-5.3) L 06/14/21 04:35 Urine Color Yellow (Yellow) 06/10/21 08:47 Urine Turbidity Cloudy (Clear) 06/10/21 08:47 Urine pH 5.0 (5.0-7.0) 06/10/21 08:47 Ur Specific [place] 1.016 (1.003-1.030) 06/10/21 08:47 Urine Protein 100 mg/dl mg/dL (Negative) 06/10/21 08:47 Urine Glucose (UA) 150 mg/dL (Negative) 06/10/21 08:47 Urine Ketones Neg mg/dL (Negative) 06/10/21 08:47 Urine Blood Lg (Negative) 06/10/21 08:47 Urine Nitrite Neg (Negative) 06/10/21 08:47 Urine Bilirubin Neg (Negative) 06/10/21 08:47 Urine Urobilinogen < 2.0 mg/dL (<2.0) 06/10/21 08:47 Ur Leukocyte Esterase Tr (Negative) 06/10/21 08:47 Urine WBC (Auto) 23.0 /HPF (0.0-6.0) H 06/10/21 08:47 Urine RBC (Auto) 67.0 /HPF (0.0-6.0) 06/10/21 08:47 U Epithel Cells (Auto) 5.0 /HPF (0-13.0) 06/10/21 08:47 Urine Bacteria (Auto) 1+ /HPF (Negative) 06/10/21 08:47 Ur Transition Epith Cell 2 /HPF 06/10/21 08:47 Hyaline Casts 1 /LPF 06/10/21 08:47 Urine Mucus Few /HPF 06/10/21 08:47 Urine Creatinine 28.0 mg/dL (0.1-20.0) H 06/13/21 00:16 Urine Sodium 109 mmol/L 06/13/21 00:16 Urine Opiates Screen Negative 06/18/21 11:09 Urine Methadone Screen Negative 06/18/21 11:09 Ur Barbiturates Screen Negative 06/18/21 11:09 Ur Phencyclidine Scrn Negative 06/18/21 11:09 Ur Amphetamines Screen Negative 06/18/21 11:09 U Benzodiazepines Scrn Positive 06/18/21 11:09 Urine Cocaine Screen Negative 06/18/21 11:09 U Marijuana (THC) Screen Positive 06/18/21 11:09 Drugs of Abuse Note Disclamer 06/18/21 11:09 Complement C3 40 mg/dL (83-193) L 06/12/21 20:15 Complement C4 4 mg/dL (15-57) L 06/12/21 20:15 Coronavirus (PCR) Negative (Negative) 06/09/21 13:12 Hepatitis A IgM Ab Non-reactive (NonReactive) 06/15/21 09:55 Hep Bs Antigen Nonreactive (Negative) 06/15/21 09:55 Hep B Core IgM Ab Non-reactive (NonReactive) 06/15/21 09:55 Hepatitis C Antibody Non-reactive (NonReactive) 06/15/21 09:55 Blood Type B POSITIVE 06/09/21 04:00 Antibody Screen Negative 06/09/21 04:00 Crossmatch See Detail 06/09/21 04:00 Esparza/IV: Voiding Method Indwelling Catheter Active Medications - Current Medications Current Medications: Generic Name Dose Route Start Last Admin Trade Name Freq PRN Reason Stop Dose Admin Amlodipine Besylate 5 mg 06/18/21 10:00 06/19/21 09:05 Amlodipine 5 Mg Tab PO 5 mg QDAY GABINO Administration Lipase/Protease/Amylase 1 each 06/14/21 16:23 Lipase 10,500/Protease 25,000/Amylase 43,750 (Units) Dr Aponte FEEDTUBE PRN PRN For Clogged Feeding Tube Dextrose 50 ml 06/09/21 11:13 Dextrose 50% In Water (25gm) 50 Ml Syringe IV Q30MIN PRN Hypoglycemia Protocol Fentanyl 25 mcg 06/14/21 15:21 06/19/21 00:52 Fentanyl 100 Mcg/2 Ml Inj IV 25 mcg Q4HR PRN Administration Pain, Moderate (4-6) Hydrophilic Ointment 1 applic 06/09/21 03:26 06/12/21 20:00 Lip Therapy Vaseline TP 1 applic Q2HR PRN Administration Dry Lips Sodium Chloride 100 mls @ 999 mls/hr 06/17/21 11:14 Nacl 0.9% IV BURKE PRN Hypotension Sodium Chloride 1,000 mls @ 75 mls/hr 06/19/21 10:00 06/19/21 10:20 Nacl 0.9% 1000 Ml IV 06/19/21 23:19 75 mls/hr DIRECT GABINO Administration Insulin Human Regular 0 units 06/18/21 12:00 06/19/21 09:06 Insulin Regular, Human 100 Units/1 Ml SUB-Q Not Given Q6H GABINO Protocol Multi-Ingred Cream/Lotion/Oil/Oint 1 applic 06/09/21 03:26 06/12/21 20:05 Mineral Oil/Petrolatum, White Ophth Oint 3.5 Gm OU 1 applic Q4HR PRN Administration Dry Eye(s) Pantoprazole Sodium 40 mg 06/15/21 22:00 06/19/21 09:05 Pantoprazole 40 Mg Inj IV 40 mg BID GABINO Administration Simple Syrup 15 ml 06/14/21 16:23 Simple Syrup 15 Ml FEEDTUBE PRN PRN Hypoglycemia Simple Syrup 30 ml 06/14/21 16:23 Simple Syrup 15 Ml FEEDTUBE PRN PRN Hypoglycemia Sodium Bicarbonate 325 mg 06/14/21 16:23 Sodium Bicarbonate 325 Mg Tab FEEDTUBE PRN PRN For Clogged Feeding Tube Sodium Chloride 10 ml 06/09/21 22:00 06/19/21 09:09 Sodium Chloride 0.9% 10 Ml Flush Syringe IV 10 ml BID GABINO Administration Sodium Chloride 10 ml 06/09/21 11:13 Sodium Chloride 0.9% 10 Ml Flush Syringe IV PRN PRN LINE FLUSH Nutrition/Malnutrition Assess - Dietary Evaluation Nutrition/Malnutrition Findings: Nutrition Notes Start: 06/11/21 15:21 Freq: Status: Active Protocol: Document 06/18/21 11:23 GB (Rec: 06/18/21 11:35 GB [email or web address]) Nutrition Notes Initial or Follow up Reassessment Current Diagnosis Acute Kidney Injury, Respiratory Failure Other Pertinent Diagnosis metabolic encephalopathy, GI bleed, intubated Current Diet NPO, TF Nepro @ 33ml/hr Labs/Tests 06/18: K 3.5, BUN 79, creainine 6.2, glucose 203, Ca 7.9 Pertinent Medications fentanyl, NaCl Height 5 ft 3 in Weight 57.2 kg [place] Body Weight (kg) 52.27 BMI 22.3 Weight change and time frame No significant changes recorded. Weight is stable. She is 109% IBW. Weight Status Appropriate Subjective/Other Information Per MD notes 06/18: Now on HD, no signs of Renal recovery seen, waiting to speak with family of continual care. Pt stable on current care. Per chart: last BM 06/16 Percent of energy/protein needs met: currently 0% with NPO 06/14: TF Nepro goal rate of 33ml/hr meets 100% or greater of estimated energy needs. 06/18: continues Burn Absent Trauma Absent GI Symptoms Other Food Allergy No Skin Integrity/Comment No reported complications Current % PO Other Minimum of two criteria No #1 Nutrition Diagnosis Inadequate energy intake Comments: 06/13: Intubation continues, NPOx4 days 06/14: TF trial, trickle feeds started. Formula Nepro start rate 10ml/hr (meets 30% or greater estimated energy needs ) 06/18: TF Vital AF 1.2 at goal of 33ml/hr meets 100% or greater of estimated energy needs. Vent continues. Etiology Intubated, GI Bleed As Evidenced by Signs and Symptoms NPO, intubation Diagnosis Progress(for reassessment Continues documentation) Is patient on ventilator? Yes Is Patient Ambulatory and/or Out of Bed No REE-([facility]-confined to bed) 1344.324 Kcal/Kg value to use for calculation 25 Approximate Energy Requirements Using 1430 kcal/Kg Calculation Used for Recommendations Kcal/kg Additional Notes Protein 1-1.2 g/kg @ 57k- 68g Fluids: 1 ml/kcal or per MD Nutrition Intervention Change Diet Order: Continue NPO, if extubated begin Clear liquids (no red colored clears) 06/14: Begin TF: Nepro @ 33ml/ hr: Start rate 10ml/hr advance 5ml/8hr or per tolerance to goal. Flush: 25ml/hr 06/18 continue TF at goal 33ml/ hr as tolerated. Nutrition Support: Nepro @ 33ml/hr: Start rate 10ml/hr advance 5ml/8hr or per tolerance to goal. Flush: 25ml/hr Kcal 1,425 Protein (gm) 64 Fat (gm) 76 Fluid (mL) 575 Goal #1 Extubate and advance diet to clear liquids 06/14: not met, continues 06/18: not met, continues. Now on TF at goal rate 33ml/hr Nepro Goal #2 If intubation continues, begin TPN post central line placement 06/14: changed, okay to start TF trial 06/18: nepro, at goal 33ml/hr tolerating Goal #3 Tolerate TF Nepro at start rate of 10ml/hr 06/18: advanced to goal 33ml/hr , resolved Goal #4 Tolerate TF Nepro at goal rate of 33ml/hr 06/18: met, continues Follow-Up By: 06/21/21 Additional Comments f/u: TF tolerance or extubated and diet advanced clear liquids <JACKSON DA SILVAA - Last Filed: 06/19/21 14:13> Assessment and Plan Assessment and plan: For this encounter I have reviewed the PA/DISTRIBUTION FIELD ENGINEER documentation, treatment plan, medical decision making, and I had face to face time with this patient. I agree with the plan listed above. Total Time Spent with Patient (Minutes): 60 - Patient Problems (1) Cardiac arrest Onset Date: ~06/09/21 Current Visit: Yes Status: Acute (2) GI bleed Onset Date: ~06/09/21 Current Visit: Yes Status: Acute Qualifiers: GI bleed type/associated pathology: unspecified gastrointestinal hemorrhage type Qualified Code(s): K92.2 - Gastrointestinal hemorrhage, unspecified (3) Hypotension Onset Date: ~06/09/21 Current Visit: Yes Status: Acute Qualifiers: Hypotension type: unspecified hypotension type Qualified Code(s): I95.9 - Hypotension, unspecified (4) Lactic acidosis Onset Date: ~06/09/21 Current Visit: Yes Status: Acute History Interval history: No acute events overnight Hospitalist Physical - Constitutional Vitals: Temp Pulse Resp BP Pulse Ox 98 F 114 H 27 H 154/112 92 06/19/21 12:00 06/19/21 12:21 06/19/21 09:00 06/19/21 12:21 06/19/21 12:21 HEART Score - HEART Score Troponin: Troponin T < 0.010 ng/mL (0.00-0.029) 06/09/21 03:27 Results - Labs CBC & Chem 7: 06/19/21 05:00 06/19/21 Unknown Labs: Laboratory Last Values WBC 36.4 K/mm3 (4.5-11.0) H 06/19/21 05:00 RBC 3.77 M/mm3 (3.65-5.03) 06/19/21 05:00 Hgb 9.3 gm/dl (10.1-14.3) L 06/19/21 05:00 Hct 29.0 % (30.3-42.9) L 06/19/21 05:00 MCV 77 fl (79-97) L 06/19/21 05:00 MCH 25 pg (28-32) L 06/19/21 05:00 MCHC 32 % (30-34) 06/19/21 05:00 RDW 22.9 % (13.2-15.2) H 06/19/21 05:00 Plt Count 116 K/mm3 (140-440) L 06/19/21 05:00 Lymph % (Auto) 5.4 % (13.4-35.0) L 06/12/21 04:03 Cache % (Auto) Coal Washer 06/15/21 04:30 Eos % (Auto) [employer] Washer 06/15/21 04:30 Baso % (Auto) 0.1 % (0.0-1.8) 06/12/21 04:03 Lymph # (Auto) 0.8 K/mm3 (1.2-5.4) L 06/12/21 04:03 [place] # (Auto) Coal Washer 06/15/21 04:30 Eos # (Auto) Coal Washer 06/15/21 04:30 Baso # (Auto) [place] Washer 06/15/21 04:30 Add Manual Diff Complete 06/15/21 04:30 Total Counted 100 06/15/21 04:30 Seg Neutrophils % [place] Washer 06/15/21 04:30 Seg Neuts % (Manual) 90.0 % (40.0-70.0) H 06/15/21 04:30 Band Neutrophils % 2.0 % 06/15/21 04:30 Lymphocytes % (Manual) 2.0 % (13.4-35.0) L 06/15/21 04:30 Reactive Lymphs % (Man) 1.0 % 06/15/21 04:30 Monocytes % (Manual) 5.0 % (0.0-7.3) 06/15/21 04:30 Nucleated RBC % 1.0 % (0.0-0.9) H 06/15/21 04:30 Seg Neutrophils # [place] Washer 06/15/21 04:30 Seg Neutrophils # Man 10.1 K/mm3 (1.8-7.7) H 06/15/21 04:30 Band Neutrophils # 0.2 K/mm3 06/15/21 04:30 Lymphocytes # (Manual) 0.2 K/mm3 (1.2-5.4) L 06/15/21 04:30 Abs React Lymphs (Man) 0.1 K/mm3 06/15/21 04:30 Monocytes # (Manual) 0.6 K/mm3 (0.0-0.8) 06/15/21 04:30 Eosinophils # (Manual) 0.0 K/mm3 (0.0-0.4) 06/15/21 04:30 Basophils # (Manual) 0.0 K/mm3 (0.0-0.1) 06/15/21 04:30 Metamyelocytes # 0.0 K/mm3 06/15/21 04:30 Myelocytes # 0.0 K/mm3 06/15/21 04:30 Promyelocytes # 0.0 K/mm3 06/15/21 04:30 Blast Cells # 0.0 K/mm3 06/15/21 04:30 WBC Morphology Not Reportable 06/15/21 04:30 Hypersegmented Neuts Not Reportable 06/15/21 04:30 Hyposegmented Neuts Not Reportable 06/15/21 04:30 Hypogranular Neuts Not Reportable 06/15/21 04:30 Smudge Cells Not Reportable 06/15/21 04:30 Toxic Granulation Not Reportable 06/15/21 04:30 Toxic Vacuolation Not Reportable 06/15/21 04:30 Dohle Bodies Not Reportable 06/15/21 04:30 Pelger-Huet Anomaly Not Reportable 06/15/21 04:30 Gui Rods Not Reportable 06/15/21 04:30 Platelet Estimate Consistent w auto 06/15/21 04:30 Clumped Platelets Not Reportable 06/15/21 04:30 Plt Clumps, EDTA Not Reportable 06/15/21 04:30 Large Platelets Not Reportable 06/15/21 04:30 Giant Platelets Not Reportable 06/15/21 04:30 Platelet Satelliting Not Reportable 06/15/21 04:30 Plt Morphology Comment Not Reportable 06/15/21 04:30 RBC Morphology Not Reportable 06/15/21 04:30 Dimorphic RBCs Not Reportable 06/15/21 04:30 Polychromasia Not Reportable 06/15/21 04:30 Hypochromasia 2+ 06/15/21 04:30 Poikilocytosis 1+ 06/15/21 04:30 Anisocytosis 2+ 06/15/21 04:30 Microcytosis 1+ 06/15/21 04:30 Macrocytosis Not Reportable 06/15/21 04:30 Spherocytes Not Reportable 06/15/21 04:30 Pappenheimer Bodies Not Reportable 06/15/21 04:30 Sickle Cells Not Reportable 06/15/21 04:30 Target Cells 1+ 06/15/21 04:30 Tear Drop Cells Not Reportable 06/15/21 04:30 Ovalocytes Not Reportable 06/15/21 04:30 Helmet Cells Not Reportable 06/15/21 04:30 [place] Bodies Not Reportable 06/15/21 04:30 Reeds Rings Not Reportable 06/15/21 04:30 Anel Cells Not Reportable 06/15/21 04:30 Bite Cells Not Reportable 06/15/21 04:30 Crenated Cell Not Reportable 06/15/21 04:30 Elliptocytes Not Reportable 06/15/21 04:30 Acanthocytes (Spur) Not Reportable 06/15/21 04:30 Rouleaux Not Reportable 06/15/21 04:30 Hemoglobin C Crystals Not Reportable 06/15/21 04:30 Schistocytes Not Reportable 06/15/21 04:30 Malaria parasites Not Reportable 06/15/21 04:30 Narendra Bodies Not Reportable 06/15/21 04:30 Hem Pathologist Commnt No 06/15/21 04:30 PT 16.3 Sec. (12.2-14.9) H 06/18/21 04:00 INR 1.26 (0.87-1.13) H 06/18/21 04:00 APTT 52.6 Sec. (24.2-36.6) H 06/09/21 12:27 Fibrinogen 83 mg/dl (211-480) L* 06/09/21 12:27 ABG pH 7.419 (7.320-7.450) 06/15/21 03:39 POC ABG pCO2 21.2 mmHg (32.0-48.0) L 06/15/21 03:39 ABG pCO2 24.1 mm Hg 06/12/21 04:50 POC ABG pO2 146.6 mmHg (83-108) H 06/15/21 03:39 ABG pO2 127.8 mm Hg (80.0-90.0) H 06/12/21 04:50 POC ABG HCO3 13.4 06/15/21 03:39 ABG HCO3 13.2 mmol/L (20.0-26.0) L 06/12/21 04:50 ABG O2 Saturation 99.0 (0-100) 06/15/21 03:39 ABG O2 Content 12.0 (0.0-44) 06/12/21 04:50 POC ABG Base Excess -9.8 06/15/21 03:39 ABG Base Excess -11.0 mmol/L (-2.0-3.0) L 06/12/21 04:50 ABG Hemoglobin 8.0 (12.0-17.5) L 06/15/21 03:39 ABG Oxyhemoglobin 98.0 (94-98) 06/15/21 03:39 ABG Carboxyhemoglobin 1.4 % (0.0-5.0) 06/12/21 04:50 ABG Methemoglobin 0.3 (0.0-1.5) 06/15/21 03:39 ABG Sodium 145.2 mmol/L (136.0-145.0) H 06/15/21 03:39 ABG Potassium 3.9 mmol/L (3.40-4.50) 06/15/21 03:39 ABG Chloride 120.0 mmol/L (98-107) H 06/15/21 03:39 ABG Glucose 126 mg/dL (65-95) H 06/15/21 03:39 Oxyhemoglobin 96.6 % (95.0-99.0) 06/12/21 04:50 Carboxyhemoglobin 0.7 (0.5-1.5) 06/15/21 03:39 FiO2 30 % 06/12/21 04:50 FiO2 % 30.0 06/15/21 03:39 Sodium 142 mmol/L (137-145) 06/19/21 Unknown Potassium 3.2 mmol/L (3.6-5.0) L 06/19/21 Unknown Chloride 99.3 mmol/L (98-107) 06/19/21 Unknown Carbon Dioxide 26 mmol/L (22-30) 06/19/21 Unknown Anion Gap 20 mmol/L 06/19/21 Unknown BUN 55 mg/dL (7-17) H 06/19/21 Unknown Creatinine 4.0 mg/dL (0.6-1.2) H 06/19/21 Unknown Estimated GFR 14 ml/min 06/19/21 Unknown BUN/Creatinine Ratio 14 % 06/19/21 Unknown Glucose 152 mg/dL (65-100) H 06/19/21 Unknown POC Glucose 138 mg/dL (70-105) H 06/19/21 12:03 Lactic Acid 1.70 mmol/L (0.7-2.0) 06/11/21 12:12 Calcium 7.9 mg/dL (8.4-10.2) L 06/19/21 Unknown Phosphorus 4.20 mg/dL (2.5-4.5) 06/19/21 Unknown Magnesium 1.60 mg/dL (1.7-2.3) L 06/19/21 Unknown Total Bilirubin 4.30 mg/dL (0.1-1.2) H 06/19/21 Unknown AST 181 units/L (5-40) H 06/19/21 Unknown ALT 149 units/L (7-56) H 06/19/21 Unknown Alkaline Phosphatase 379 units/L (35-129) H 06/19/21 Unknown Ammonia 32.0 umol/L (25-60) 06/11/21 14:48 Lactate Dehydrogenase 2208 units/L (91-180) H 06/09/21 11:44 Troponin T < 0.010 ng/mL (0.00-0.029) 06/09/21 03:27 Total Protein 6.6 g/dL (6.3-8.2) 06/19/21 Unknown Albumin 2.4 g/dL (3.9-5) L 06/19/21 Unknown Albumin/Globulin Ratio 0.6 % 06/19/21 Unknown TSH 0.315 mlU/mL (0.270-4.200) 06/11/21 14:48 Arterial Blood Glucose 126 mg/dL (65-95) H 06/15/21 03:39 Arterial Blood Ionized Calcium 3.5 mg/dL (4.6-5.3) L 06/14/21 04:35 Urine Color Yellow (Yellow) 06/10/21 08:47 Urine Turbidity Cloudy (Clear) 06/10/21 08:47 Urine pH 5.0 (5.0-7.0) 06/10/21 08:47 Ur Specific [place] 1.016 (1.003-1.030) 06/10/21 08:47 Urine Protein 100 mg/dl mg/dL (Negative) 06/10/21 08:47 Urine Glucose (UA) 150 mg/dL (Negative) 06/10/21 08:47 Urine Ketones Neg mg/dL (Negative) 06/10/21 08:47 Urine Blood Lg (Negative) 06/10/21 08:47 Urine Nitrite Neg (Negative) 06/10/21 08:47 Urine Bilirubin Neg (Negative) 06/10/21 08:47 Urine Urobilinogen < 2.0 mg/dL (<2.0) 06/10/21 08:47 Ur Leukocyte Esterase Tr (Negative) 06/10/21 08:47 Urine WBC (Auto) 23.0 /HPF (0.0-6.0) H 06/10/21 08:47 Urine RBC (Auto) 67.0 /HPF (0.0-6.0) 06/10/21 08:47 U Epithel Cells (Auto) 5.0 /HPF (0-13.0) 06/10/21 08:47 Urine Bacteria (Auto) 1+ /HPF (Negative) 06/10/21 08:47 Ur Transition Epith Cell 2 /HPF 06/10/21 08:47 Hyaline Casts 1 /LPF 06/10/21 08:47 Urine Mucus Few /HPF 06/10/21 08:47 Urine Creatinine 28.0 mg/dL (0.1-20.0) H 06/13/21 00:16 Urine Sodium 109 mmol/L 06/13/21 00:16 Urine Opiates Screen Negative 06/18/21 11:09 Urine Methadone Screen Negative 06/18/21 11:09 Ur Barbiturates Screen Negative 06/18/21 11:09 Ur Phencyclidine Scrn Negative 06/18/21 11:09 Ur Amphetamines Screen Negative 06/18/21 11:09 U Benzodiazepines Scrn Positive 06/18/21 11:09 Urine Cocaine Screen Negative 06/18/21 11:09 U Marijuana (THC) Screen Positive 06/18/21 11:09 Drugs of Abuse Note Disclamer 06/18/21 11:09 Complement C3 40 mg/dL (83-193) L 06/12/21 20:15 Complement C4 4 mg/dL (15-57) L 06/12/21 20:15 Coronavirus (PCR) Negative (Negative) 06/09/21 13:12 Hepatitis A IgM Ab Non-reactive (NonReactive) 06/15/21 09:55 Hep Bs Antigen Nonreactive (Negative) 06/15/21 09:55 Hep B Core IgM Ab Non-reactive (NonReactive) 06/15/21 09:55 Hepatitis C Antibody Non-reactive (NonReactive) 06/15/21 09:55 Blood Type B POSITIVE 06/09/21 04:00 Antibody Screen Negative 06/09/21 04:00 Crossmatch See Detail 06/09/21 04:00 Esparza/IV: Voiding Method Indwelling Catheter Active Medications - Current Medications Current Medications: Generic Name Dose Route Start Last Admin Trade Name Freq PRN Reason Stop Dose Admin Amlodipine Besylate 10 mg 06/20/21 10:00 Amlodipine 10 Mg Tab PO QDAY GABINO Amlodipine Besylate 5 mg 06/19/21 15:00 Amlodipine 5 Mg Tab PO 06/19/21 15:01 QDAY GABINO Lipase/Protease/Amylase 1 each 06/14/21 16:23 Lipase 10,500/Protease 25,000/Amylase 43,750 (Units) Dr Aponte FEEDTUBE PRN PRN For Clogged Feeding Tube Dextrose 50 ml 06/09/21 11:13 Dextrose 50% In Water (25gm) 50 Ml Syringe IV Q30MIN PRN Hypoglycemia Protocol Fentanyl 25 mcg 06/14/21 15:21 06/19/21 00:52 Fentanyl 100 Mcg/2 Ml Inj IV 25 mcg Q4HR PRN Administration Pain, Moderate (4-6) Heparin Sodium (Porcine) 5,000 unit 06/19/21 14:00 Heparin 5,000 Unit/1 Ml Vial SUB-Q Q8HR GABINO Hydrophilic Ointment 1 applic 06/09/21 03:26 06/12/21 20:00 Lip Therapy Vaseline TP 1 applic Q2HR PRN Administration Dry Lips Sodium Chloride 100 mls @ 999 mls/hr 06/17/21 11:14 Nacl 0.9% IV BURKE PRN Hypotension Sodium Chloride 1,000 mls @ 75 mls/hr 06/19/21 10:00 06/19/21 10:20 Nacl 0.9% 1000 Ml IV 06/19/21 23:19 75 mls/hr DIRECT GABINO Administration Magnesium Sulfate 2 gm in 50 mls @ 25 mls/hr 06/19/21 15:00 Magnesium Sulfate 2gm/50ml IV 06/19/21 19:00 ONCE@1500 GABINO Insulin Human Regular 0 units 06/18/21 12:00 06/19/21 09:06 Insulin Regular, Human 100 Units/1 Ml SUB-Q Not Given Q6H [facility] Protocol Lansoprazole 30 mg 06/19/21 22:00 Lansoprazole 30 Mg Solutab FEEDTUBE BID GABINO Multi-Ingred Cream/Lotion/Oil/Oint 1 applic 06/09/21 03:26 06/12/21 20:05 Mineral Oil/Petrolatum, White Ophth Oint 3.5 Gm OU 1 applic Q4HR PRN Administration Dry Eye(s) Potassium Chloride 40 meq 06/19/21 15:00 Potassium Chloride 20 Meq Packet FEEDTUBE 06/19/21 19:00 ONCE@1500 GABINO Simple Syrup 15 ml 06/14/21 16:23 Simple Syrup 15 Ml FEEDTUBE PRN PRN Hypoglycemia Simple Syrup 30 ml 06/14/21 16:23 Simple Syrup 15 Ml FEEDTUBE PRN PRN Hypoglycemia Sodium Bicarbonate 325 mg 06/14/21 16:23 Sodium Bicarbonate 325 Mg Tab FEEDTUBE PRN PRN For Clogged Feeding Tube Sodium Chloride 10 ml 06/09/21 22:00 06/19/21 09:09 Sodium Chloride 0.9% 10 Ml Flush Syringe IV 10 ml BID GABINO Administration Sodium Chloride 10 ml 06/09/21 11:13 Sodium Chloride 0.9% 10 Ml Flush Syringe IV PRN PRN LINE FLUSH Nutrition/Malnutrition Assess - Dietary Evaluation Nutrition/Malnutrition Findings: Nutrition Notes Start: 06/11/21 15:21 Freq: Status: Active Protocol: Document 06/18/21 11:23 GB (Rec: 06/18/21 11:35 GB [id number]) Nutrition Notes Initial or Follow up Reassessment Current Diagnosis Acute Kidney Injury, Respiratory Failure Other Pertinent Diagnosis metabolic encephalopathy, GI bleed, intubated Current Diet NPO, TF Nepro @ 33ml/hr Labs/Tests 06/18: K 3.5, BUN 79, creainine 6.2, glucose 203, Ca 7.9 Pertinent Medications fentanyl, NaCl Height 5 ft 3 in Weight 57.2 kg [place] Body Weight (kg) 52.27 BMI 22.3 Weight change and time frame No significant changes recorded. Weight is stable. She is 109% IBW. Weight Status Appropriate Subjective/Other Information Per MD notes 06/18: Now on HD, no signs of Renal recovery seen, waiting to speak with family of continual care. Pt stable on current care. Per chart: last BM 06/16 Percent of energy/protein needs met: currently 0% with NPO 06/14: TF Nepro goal rate of 33ml/hr meets 100% or greater of estimated energy needs. 06/18: continues Burn Absent Trauma Absent GI Symptoms Other Food Allergy No Skin Integrity/Comment No reported complications Current % PO Other Minimum of two criteria No #1 Nutrition Diagnosis Inadequate energy intake Comments: 06/13: Intubation continues, NPOx4 days 06/14: TF trial, trickle feeds started. Formula Nepro start rate 10ml/hr (meets 30% or greater estimated energy needs ) 06/18: TF Vital AF 1.2 at goal of 33ml/hr meets 100% or greater of estimated energy needs. Vent continues. Etiology Intubated, GI Bleed As Evidenced by Signs and Symptoms NPO, intubation Diagnosis Progress(for reassessment Continues documentation) Is patient on ventilator? Yes Is Patient Ambulatory and/or Out of Bed No REE-([facility]-confined to bed) 1344.324 Kcal/Kg value to use for calculation 25 Approximate Energy Requirements Using 1430 kcal/Kg Calculation Used for Recommendations Kcal/kg Additional Notes Protein 1-1.2 g/kg @ 57k- 68g Fluids: 1 ml/kcal or per MD Nutrition Intervention Change Diet Order: Continue NPO, if extubated begin Clear liquids (no red colored clears) 06/14: Begin TF: Nepro @ 33ml/ hr: Start rate 10ml/hr advance 5ml/8hr or per tolerance to goal. Flush: 25ml/hr 06/18 continue TF at goal 33ml/ hr as tolerated. Nutrition Support: Nepro @ 33ml/hr: Start rate 10ml/hr advance 5ml/8hr or per tolerance to goal. Flush: 25ml/hr Kcal 1,425 Protein (gm) 64 Fat (gm) 76 Fluid (mL) 575 Goal #1 Extubate and advance diet to clear liquids 06/14: not met, continues 06/18: not met, continues. Now on TF at goal rate 33ml/hr Nepro Goal #2 If intubation continues, begin TPN post central line placement 06/14: changed, okay to start TF trial 06/18: nepro, at goal 33ml/hr tolerating Goal #3 Tolerate TF Nepro at start rate of 10ml/hr 06/18: advanced to goal 33ml/hr , resolved Goal #4 Tolerate TF Nepro at goal rate of 33ml/hr 06/18: met, continues Follow-Up By: 06/21/21 Additional Comments f/u: TF tolerance or extubated and diet advanced clear liquids - Attestation Statement I have reviewed and agreed w/ Malnutrition eval & tx plan: Yes
--- NOTE | 2021-06-19 13:15 | XRay Report ---
ABDOMEN 1 VIEW 06/19/2021 12:05 PM INDICATION / CLINICAL INFORMATION: NGT Placement. COMPARISON: 06/19/2021, 1047 hours FINDINGS: TUBES / LINES: Tip the nasogastric tube projects the level of the distal stomach BOWEL GAS PATTERN: No significant abnormality. FREE AIR / EXTRALUMINAL GAS: None. ADDITIONAL FINDINGS: A surgical clip projects over the left upper quadrant IMPRESSION: 1. Esophagogastric tube in expected position. Signer Name: Jonatan Choi MD Signed: 06/19/2021 1:11 PM Workstation Name: [id number]
--- NOTE | 2021-06-19 13:40 | Progress Note ---
Assessment and Plan #Acute encephalopathy -Hypoxic versus metabolic - MRI brain on 06/14 showed hypoattenuation posterior cortical ? -consider repeat MRI brain -EEG is is with diffuse slowing no sign of seizure #Acute blood loss anemia-resolved #Hemorrhagic shock requiring pressors -resolved --Endoscopy 06/10/21: Clipping of presumed location of bleed by GI #Acute kidney injury -Unknown baseline, creatinine 6.2 today -Renal ultrasound negative -femoral vasc cath for access -HD x2; continue with HD MWF per Nephrology #PEA arrest -ROSC achieved #Anion gap metabolic acidosis #Lactic acidosis -Resolved -Likely secondary to PEA arrest and upper GI bleed #Coagulopathy -will continue to trend INR -give vitamin K as needed #Elevated liver enzymes -AST, ALT, T bili downtrending -likely secondary to shock -will continue to monitor #Acute hypoxic respiratory failure -intubated for airway protection, Pulmonary managing -unable to be extubated due to mental status -Plan for extubation as mental status will allow #Nutrition- continue TF @10cc/hr #CODE STATUS - Full Code PLAN 1- Repeat MRI brain 2- EEG is noted 3- HD by nephrology 4- No sedation will follow over all prognosis is quarded to poor. Subjective Date of service: 06/19/21 Principal diagnosis: UGI bleed Interval history: Altered Mental Status History of present illness: 60 yo female with unknown medical history, who presented with PEA arrest, s/p acute GI bleed (Hgb 3.0) with initial hypoglycemia (BG 20) and hypotension. Per RN, at bedside, patient was noted with some "independent movement" of the extremities . No reported seizure she is off sedation MRI is noted on 06/14 -- consider repeat EEG is is remarkable for diffuse slowing no sign of seizure Past History Past Medical History: No medical history (Unable to obtain further medical history given patient's clinical status) Objective - Vital Sign Vital Signs - 12hr 06/19/21 06/19/21 06/19/21 02:00 03:00 03:16 Temperature 98.9 F Pulse Rate 101 H 115 H Pulse Rate [ From Monitor] Respiratory 25 H 31 H Rate Blood Pressure 137/95 163/112 O2 Sat by Pulse 88 95 Oximetry 06/19/21 06/19/21 06/19/21 04:00 04:47 05:00 Temperature Pulse Rate 101 H 99 H 104 H Pulse Rate [ 112 H From Monitor] Respiratory 25 H 27 H Rate Blood Pressure 154/105 137/96 137/95 O2 Sat by Pulse 100 96 93 Oximetry 06/19/21 06/19/21 06/19/21 06:00 07:00 08:00 Temperature 99.6 F Pulse Rate 100 H 104 H 119 H Pulse Rate [ 121 H From Monitor] Respiratory 25 H 23 30 H Rate Blood Pressure 119/79 125/91 153/113 O2 Sat by Pulse 90 91 93 Oximetry 06/19/21 06/19/21 06/19/21 08:52 09:00 09:05 Temperature Pulse Rate 104 H 122 H 120 H Pulse Rate [ From Monitor] Respiratory 27 H Rate Blood Pressure 164/116 149/102 149/102 O2 Sat by Pulse 92 93 Oximetry 06/19/21 06/19/21 12:00 12:21 Temperature 98 F Pulse Rate 114 H Pulse Rate [ From Monitor] Respiratory Rate Blood Pressure 154/112 O2 Sat by Pulse 92 Oximetry - General Apperance Constitutional: comfortable - EENT EENT: PERRL - Respiratory Respiratory: lungs clear, rhonchi - Cardiovascular Cardiovascular: regular rate, normal S1, normal S2 Extremities: no peripheral edema bilat, no clubbing, cyanosis - Gastrointestinal Gastrointestinal: normoactive bowel sounds - Integumentary Integumentary: normal - Neurologic Cranial nerve examination: other (eyes wondering around , she is with absent corneal , no gag) - Laboratory Findings CBC and BMP: 06/19/21 05:00 06/19/21 Unknown Abnormal Lab Findings: Abnormal Labs 06/09/21 06/09/21 06/09/21 03:27 03:42 03:59 WBC RBC 1.57 L Hgb 3.0 L* Hct 11.8 L* MCV 75 L MCH 19 L MCHC 26 L RDW 21.7 H Plt Count 109 L Lymph % (Auto) 9.7 L Person % (Auto) 8.5 H Lymph # (Auto) 0.9 L Person # (Auto) Seg Neutrophils % 81.2 H Seg Neuts % (Manual) Lymphocytes % (Manual) Nucleated RBC % Seg Neutrophils # Seg Neutrophils # Man Lymphocytes # (Manual) PT INR APTT Fibrinogen ABG pH POC ABG pCO2 POC ABG pO2 ABG pO2 ABG HCO3 ABG Base Excess ABG Hemoglobin ABG Oxyhemoglobin ABG Sodium ABG Potassium ABG Chloride ABG Glucose Carboxyhemoglobin Sodium Potassium Chloride 95.2 L Carbon Dioxide 8 L* BUN 18 H Creatinine Glucose 540 H* POC Glucose Lactic Acid 28.20 H* Calcium 11.5 H Phosphorus Magnesium Total Bilirubin AST 411 H ALT 106 H Alkaline Phosphatase Lactate Dehydrogenase Total Protein 4.9 L Albumin 2.4 L Arterial Blood Glucose Arterial Blood Ionized Calcium Urine WBC (Auto) Urine Creatinine Complement C3 Complement C4 Crossmatch 06/09/21 06/09/21 06/09/21 03:59 04:00 04:04 WBC RBC Hgb Hct MCV MCH MCHC RDW Plt Count Lymph % (Auto) Person % (Auto) Lymph # (Auto) Person # (Auto) Seg Neutrophils % Seg Neuts % (Manual) Lymphocytes % (Manual) Nucleated RBC % Seg Neutrophils # Seg Neutrophils # Man Lymphocytes # (Manual) PT 34.3 H INR 3.36 H APTT 66.3 H* Fibrinogen ABG pH 6.845 L POC ABG pCO2 POC ABG pO2 116.6 H ABG pO2 ABG HCO3 ABG Base Excess ABG Hemoglobin 2.6 L ABG Oxyhemoglobin 90.6 L ABG Sodium ABG Potassium 3.0 L ABG Chloride ABG Glucose 334 H Carboxyhemoglobin 1.8 H Sodium Potassium Chloride Carbon Dioxide BUN Creatinine Glucose POC Glucose Lactic Acid Calcium Phosphorus Magnesium Total Bilirubin AST ALT Alkaline Phosphatase Lactate Dehydrogenase Total Protein Albumin Arterial Blood Glucose 334 H Arterial Blood Ionized Calcium Urine WBC (Auto) Urine Creatinine Complement C3 Complement C4 Crossmatch See Detail 06/09/21 06/09/21 06/09/21 05:16 11:42 11:44 WBC RBC Hgb Hct MCV MCH MCHC RDW Plt Count Lymph % (Auto) Person % (Auto) Lymph # (Auto) Person # (Auto) Seg Neutrophils % Seg Neuts % (Manual) Lymphocytes % (Manual) Nucleated RBC % Seg Neutrophils # Seg Neutrophils # Man Lymphocytes # (Manual) PT INR APTT Fibrinogen ABG pH POC ABG pCO2 POC ABG pO2 ABG pO2 ABG HCO3 ABG Base Excess ABG Hemoglobin ABG Oxyhemoglobin ABG Sodium ABG Potassium ABG Chloride ABG Glucose Carboxyhemoglobin Sodium Potassium Chloride 109.5 H Carbon Dioxide 4 L* BUN 19 H Creatinine Glucose 158 H POC Glucose 191 H Lactic Acid 25.20 H* Calcium 7.8 L D Phosphorus Magnesium Total Bilirubin AST ALT Alkaline Phosphatase Lactate Dehydrogenase 2208 H Total Protein Albumin Arterial Blood Glucose Arterial Blood Ionized Calcium Urine WBC (Auto) Urine Creatinine Complement C3 Complement C4 Crossmatch 06/09/21 06/09/21 06/10/21 12:27 12:27 04:21 WBC 14.2 H RBC 3.58 L Hgb 8.9 L D Hct 29.9 L D MCV MCH 25 L MCHC RDW 22.0 H Plt Count 94 L Lymph % (Auto) Person % (Auto) Lymph # (Auto) Person # (Auto) Seg Neutrophils % Seg Neuts % (Manual) 87.0 H Lymphocytes % (Manual) 5.0 L Nucleated RBC % Seg Neutrophils # Seg Neutrophils # Man 12.4 H Lymphocytes # (Manual) 0.7 L PT 36.0 H INR 3.58 H APTT 52.6 H Fibrinogen 83 L* ABG pH 7.323 L POC ABG pCO2 POC ABG pO2 ABG pO2 152.9 H ABG HCO3 12.6 L ABG Base Excess -12.0 L ABG Hemoglobin 9.2 L ABG Oxyhemoglobin ABG Sodium ABG Potassium ABG Chloride ABG Glucose Carboxyhemoglobin Sodium Potassium Chloride Carbon Dioxide BUN Creatinine Glucose POC Glucose Lactic Acid Calcium Phosphorus Magnesium Total Bilirubin AST ALT Alkaline Phosphatase Lactate Dehydrogenase Total Protein Albumin Arterial Blood Glucose Arterial Blood Ionized Calcium Urine WBC (Auto) Urine Creatinine Complement C3 Complement C4 Crossmatch 06/10/21 06/10/21 06/10/21 04:27 04:27 06:59 WBC 14.1 H RBC Hgb Hct MCV MCH 25 L MCHC RDW 20.0 H Plt Count 99 L Lymph % (Auto) 4.2 L Person % (Auto) 8.6 H Lymph # (Auto) 0.6 L Person # (Auto) 1.2 H Seg Neutrophils % 86.6 H Seg Neuts % (Manual) Lymphocytes % (Manual) Nucleated RBC % Seg Neutrophils # 12.2 H Seg Neutrophils # Man Lymphocytes # (Manual) PT INR APTT Fibrinogen ABG pH POC ABG pCO2 POC ABG pO2 ABG pO2 ABG HCO3 ABG Base Excess ABG Hemoglobin ABG Oxyhemoglobin ABG Sodium ABG Potassium ABG Chloride ABG Glucose Carboxyhemoglobin Sodium 146 H Potassium 3.4 L Chloride 115.2 H Carbon Dioxide 14 L D BUN 30 H Creatinine 1.9 H D Glucose 122 H POC Glucose Lactic Acid 4.60 H* Calcium 7.4 L Phosphorus Magnesium Total Bilirubin 7.00 H AST 2708 H ALT 522 H Alkaline Phosphatase Lactate Dehydrogenase Total Protein 4.8 L Albumin 2.4 L Arterial Blood Glucose Arterial Blood Ionized Calcium Urine WBC (Auto) Urine Creatinine Complement C3 Complement C4 Crossmatch 06/10/21 06/10/21 06/10/21 06:59 08:23 08:47 WBC RBC Hgb Hct MCV MCH MCHC RDW Plt Count Lymph % (Auto) Person % (Auto) Lymph # (Auto) Person # (Auto) Seg Neutrophils % Seg Neuts % (Manual) Lymphocytes % (Manual) Nucleated RBC % Seg Neutrophils # Seg Neutrophils # Man Lymphocytes # (Manual) PT 26.8 H INR 2.42 H APTT Fibrinogen ABG pH POC ABG pCO2 POC ABG pO2 ABG pO2 ABG HCO3 ABG Base Excess ABG Hemoglobin ABG Oxyhemoglobin ABG Sodium ABG Potassium ABG Chloride ABG Glucose Carboxyhemoglobin Sodium Potassium Chloride Carbon Dioxide BUN Creatinine Glucose POC Glucose 121 H Lactic Acid Calcium Phosphorus Magnesium Total Bilirubin AST ALT Alkaline Phosphatase Lactate Dehydrogenase Total Protein Albumin Arterial Blood Glucose Arterial Blood Ionized Calcium Urine WBC (Auto) 23.0 H Urine Creatinine Complement C3 Complement C4 Crossmatch 06/10/21 06/10/21 06/11/21 11:47 23:46 03:52 WBC RBC Hgb Hct MCV MCH MCHC RDW Plt Count Lymph % (Auto) Person % (Auto) Lymph # (Auto) Person # (Auto) Seg Neutrophils % Seg Neuts % (Manual) Lymphocytes % (Manual) Nucleated RBC % Seg Neutrophils # Seg Neutrophils # Man Lymphocytes # (Manual) PT INR APTT Fibrinogen ABG pH POC ABG pCO2 POC ABG pO2 ABG pO2 148.9 H ABG HCO3 13.0 L ABG Base Excess -10.1 L ABG Hemoglobin 9.1 L ABG Oxyhemoglobin ABG Sodium ABG Potassium ABG Chloride ABG Glucose Carboxyhemoglobin Sodium Potassium Chloride Carbon Dioxide BUN Creatinine Glucose POC Glucose Lactic Acid 4.40 H* 3.30 H* Calcium Phosphorus Magnesium Total Bilirubin AST ALT Alkaline Phosphatase Lactate Dehydrogenase Total Protein Albumin Arterial Blood Glucose Arterial Blood Ionized Calcium Urine WBC (Auto) Urine Creatinine Complement C3 Complement C4 Crossmatch 06/11/21 06/11/21 06/11/21 05:05 10:38 10:38 WBC 12.6 H RBC 3.38 L Hgb 8.5 L Hct 26.3 L MCV 78 L MCH 25 L MCHC RDW 20.6 H Plt Count 97 L Lymph % (Auto) Person % (Auto) Lymph # (Auto) Person # (Auto) Seg Neutrophils % Seg Neuts % (Manual) Lymphocytes % (Manual) Nucleated RBC % Seg Neutrophils # Seg Neutrophils # Man Lymphocytes # (Manual) PT 23.1 H INR 1.98 H APTT Fibrinogen ABG pH POC ABG pCO2 POC ABG pO2 ABG pO2 ABG HCO3 ABG Base Excess ABG Hemoglobin ABG Oxyhemoglobin ABG Sodium ABG Potassium ABG Chloride ABG Glucose Carboxyhemoglobin Sodium Potassium Chloride Carbon Dioxide BUN Creatinine Glucose POC Glucose Lactic Acid 2.40 H* Calcium Phosphorus Magnesium Total Bilirubin AST ALT Alkaline Phosphatase Lactate Dehydrogenase Total Protein Albumin Arterial Blood Glucose Arterial Blood Ionized Calcium Urine WBC (Auto) Urine Creatinine Complement C3 Complement C4 Crossmatch 06/11/21 06/11/21 06/11/21 10:38 10:38 12:15 WBC RBC Hgb Hct MCV MCH MCHC RDW Plt Count Lymph % (Auto) Person % (Auto) Lymph # (Auto) Person # (Auto) Seg Neutrophils % Seg Neuts % (Manual) Lymphocytes % (Manual) Nucleated RBC % Seg Neutrophils # Seg Neutrophils # Man Lymphocytes # (Manual) PT INR APTT Fibrinogen ABG pH POC ABG pCO2 POC ABG pO2 ABG pO2 ABG HCO3 ABG Base Excess ABG Hemoglobin ABG Oxyhemoglobin ABG Sodium ABG Potassium ABG Chloride ABG Glucose Carboxyhemoglobin Sodium 147 H Potassium Chloride 118.1 H Carbon Dioxide 11 L BUN 53 H Creatinine 3.2 H D Glucose 104 H POC Glucose Lactic Acid 2.30 H* Calcium 5.9 L* D 5.9 L* Phosphorus 7.10 H Magnesium 1.60 L Total Bilirubin 4.20 H AST 2252 H ALT 540 H Alkaline Phosphatase Lactate Dehydrogenase Total Protein 4.4 L Albumin 2.2 L Arterial Blood Glucose Arterial Blood Ionized Calcium Urine WBC (Auto) Urine Creatinine Complement C3 Complement C4 Crossmatch 06/11/21 06/11/21 06/12/21 14:48 17:45 04:03 WBC 14.7 H RBC Hgb 8.9 L 9.4 L 9.2 L Hct 29.6 L 28.6 L 28.0 L MCV 77 L MCH 25 L MCHC RDW 21.2 H Plt Count 112 L Lymph % (Auto) 5.4 L Person % (Auto) 8.6 H Lymph # (Auto) 0.8 L Person # (Auto) 1.3 H Seg Neutrophils % 85.8 H Seg Neuts % (Manual) Lymphocytes % (Manual) Nucleated RBC % Seg Neutrophils # 12.6 H Seg Neutrophils # Man Lymphocytes # (Manual) PT INR APTT Fibrinogen ABG pH POC ABG pCO2 POC ABG pO2 ABG pO2 ABG HCO3 ABG Base Excess ABG Hemoglobin ABG Oxyhemoglobin ABG Sodium ABG Potassium ABG Chloride ABG Glucose Carboxyhemoglobin Sodium Potassium Chloride Carbon Dioxide BUN Creatinine Glucose POC Glucose Lactic Acid Calcium Phosphorus Magnesium Total Bilirubin AST ALT Alkaline Phosphatase Lactate Dehydrogenase Total Protein Albumin Arterial Blood Glucose Arterial Blood Ionized Calcium Urine WBC (Auto) Urine Creatinine Complement C3 Complement C4 Crossmatch 06/12/21 06/12/21 06/12/21 04:03 04:03 04:50 WBC RBC Hgb Hct MCV MCH MCHC RDW Plt Count Lymph % (Auto) Person % (Auto) Lymph # (Auto) Person # (Auto) Seg Neutrophils % Seg Neuts % (Manual) Lymphocytes % (Manual) Nucleated RBC % Seg Neutrophils # Seg Neutrophils # Man Lymphocytes # (Manual) PT 24.1 H INR 2.10 H APTT Fibrinogen ABG pH POC ABG pCO2 POC ABG pO2 ABG pO2 127.8 H ABG HCO3 13.2 L ABG Base Excess -11.0 L ABG Hemoglobin 8.6 L ABG Oxyhemoglobin ABG Sodium ABG Potassium ABG Chloride ABG Glucose Carboxyhemoglobin Sodium 148 H Potassium Chloride 117.8 H Carbon Dioxide 17 L BUN 72 H Creatinine 4.6 H Glucose POC Glucose Lactic Acid Calcium 6.1 L Phosphorus 6.70 H Magnesium Total Bilirubin 3.40 H AST 1494 H ALT 512 H Alkaline Phosphatase Lactate Dehydrogenase Total Protein 4.4 L Albumin 2.2 L Arterial Blood Glucose Arterial Blood Ionized Calcium Urine WBC (Auto) Urine Creatinine Complement C3 Complement C4 Crossmatch 06/12/21 06/12/21 06/13/21 20:15 20:15 00:16 WBC RBC Hgb Hct MCV MCH MCHC RDW Plt Count Lymph % (Auto) Person % (Auto) Lymph # (Auto) Person # (Auto) Seg Neutrophils % Seg Neuts % (Manual) Lymphocytes % (Manual) Nucleated RBC % Seg Neutrophils # Seg Neutrophils # Man Lymphocytes # (Manual) PT INR APTT Fibrinogen ABG pH POC ABG pCO2 POC ABG pO2 ABG pO2 ABG HCO3 ABG Base Excess ABG Hemoglobin ABG Oxyhemoglobin ABG Sodium ABG Potassium ABG Chloride ABG Glucose Carboxyhemoglobin Sodium Potassium Chloride Carbon Dioxide BUN Creatinine Glucose POC Glucose Lactic Acid Calcium Phosphorus Magnesium Total Bilirubin AST ALT Alkaline Phosphatase Lactate Dehydrogenase Total Protein Albumin Arterial Blood Glucose Arterial Blood Ionized Calcium Urine WBC (Auto) Urine Creatinine 28.0 H Complement C3 40 L Complement C4 4 L Crossmatch 06/13/21 06/13/21 06/13/21 04:00 08:11 08:11 WBC RBC 3.51 L Hgb 8.9 L Hct 26.2 L MCV 75 L MCH 25 L MCHC RDW 21.3 H Plt Count 96 L Lymph % (Auto) Person % (Auto) Lymph # (Auto) Person # (Auto) Seg Neutrophils % Seg Neuts % (Manual) Lymphocytes % (Manual) Nucleated RBC % Seg Neutrophils # Seg Neutrophils # Man Lymphocytes # (Manual) PT INR APTT Fibrinogen ABG pH POC ABG pCO2 22.8 L POC ABG pO2 115.7 H ABG pO2 ABG HCO3 ABG Base Excess ABG Hemoglobin 7.2 L ABG Oxyhemoglobin ABG Sodium ABG Potassium ABG Chloride 119.0 H ABG Glucose 102 H Carboxyhemoglobin Sodium 147 H Potassium Chloride 117.2 H Carbon Dioxide 15 L BUN 96 H Creatinine 6.1 H Glucose 107 H POC Glucose Lactic Acid Calcium 6.2 L Phosphorus Magnesium Total Bilirubin AST ALT Alkaline Phosphatase Lactate Dehydrogenase Total Protein Albumin Arterial Blood Glucose 102 H Arterial Blood Ionized Calcium Urine WBC (Auto) Urine Creatinine Complement C3 Complement C4 Crossmatch 06/13/21 06/13/21 06/14/21 12:54 14:17 04:35 WBC RBC Hgb Hct MCV MCH MCHC RDW Plt Count Lymph % (Auto) Person % (Auto) Lymph # (Auto) Person # (Auto) Seg Neutrophils % Seg Neuts % (Manual) Lymphocytes % (Manual) Nucleated RBC % Seg Neutrophils # Seg Neutrophils # Man Lymphocytes # (Manual) PT 18.2 H INR 1.44 H APTT Fibrinogen ABG pH 7.507 H POC ABG pCO2 15.9 L POC ABG pO2 121.2 H ABG pO2 ABG HCO3 ABG Base Excess ABG Hemoglobin 6.3 L ABG Oxyhemoglobin ABG Sodium ABG Potassium ABG Chloride 119.0 H ABG Glucose Carboxyhemoglobin Sodium Potassium Chloride Carbon Dioxide BUN Creatinine Glucose POC Glucose 107 H Lactic Acid Calcium Phosphorus Magnesium Total Bilirubin AST ALT Alkaline Phosphatase Lactate Dehydrogenase Total Protein Albumin Arterial Blood Glucose Arterial Blood Ionized Calcium 3.5 L Urine WBC (Auto) Urine Creatinine Complement C3 Complement C4 Crossmatch 06/14/21 06/14/21 06/14/21 08:45 08:45 08:45 WBC RBC Hgb 9.3 L Hct 27.6 L MCV 75 L MCH 25 L MCHC RDW 21.9 H Plt Count 137 L Lymph % (Auto) Person % (Auto) Lymph # (Auto) Person # (Auto) Seg Neutrophils % Seg Neuts % (Manual) Lymphocytes % (Manual) Nucleated RBC % Seg Neutrophils # Seg Neutrophils # Man Lymphocytes # (Manual) PT 16.8 H INR 1.30 H APTT Fibrinogen ABG pH POC ABG pCO2 POC ABG pO2 ABG pO2 ABG HCO3 ABG Base Excess ABG Hemoglobin ABG Oxyhemoglobin ABG Sodium ABG Potassium ABG Chloride ABG Glucose Carboxyhemoglobin Sodium 147 H Potassium Chloride 115.5 H Carbon Dioxide 15 L BUN 107 H Creatinine 6.8 H Glucose POC Glucose Lactic Acid Calcium 6.7 L Phosphorus Magnesium Total Bilirubin 5.00 H AST 578 H ALT 298 H Alkaline Phosphatase Lactate Dehydrogenase Total Protein 5.6 L D Albumin 2.3 L Arterial Blood Glucose Arterial Blood Ionized Calcium Urine WBC (Auto) Urine Creatinine Complement C3 Complement C4 Crossmatch 06/14/21 06/15/21 06/15/21 23:31 03:39 04:30 WBC 11.2 H RBC 3.05 L Hgb 7.5 L Hct 23.3 L MCV 76 L MCH 25 L MCHC RDW 23.1 H Plt Count 109 L Lymph % (Auto) Person % (Auto) Lymph # (Auto) Person # (Auto) Seg Neutrophils % Seg Neuts % (Manual) 90.0 H Lymphocytes % (Manual) 2.0 L Nucleated RBC % 1.0 H Seg Neutrophils # Seg Neutrophils # Man 10.1 H Lymphocytes # (Manual) 0.2 L PT INR APTT Fibrinogen ABG pH POC ABG pCO2 21.2 L POC ABG pO2 146.6 H ABG pO2 ABG HCO3 ABG Base Excess ABG Hemoglobin 8.0 L ABG Oxyhemoglobin ABG Sodium 145.2 H ABG Potassium ABG Chloride 120.0 H ABG Glucose 126 H Carboxyhemoglobin Sodium Potassium Chloride Carbon Dioxide BUN Creatinine Glucose POC Glucose 108 H Lactic Acid Calcium Phosphorus Magnesium Total Bilirubin AST ALT Alkaline Phosphatase Lactate Dehydrogenase Total Protein Albumin Arterial Blood Glucose 126 H Arterial Blood Ionized Calcium Urine WBC (Auto) Urine Creatinine Complement C3 Complement C4 Crossmatch 06/15/21 06/15/21 06/15/21 04:30 04:30 05:14 WBC RBC Hgb Hct MCV MCH MCHC RDW Plt Count Lymph % (Auto) Person % (Auto) Lymph # (Auto) Person # (Auto) Seg Neutrophils % Seg Neuts % (Manual) Lymphocytes % (Manual) Nucleated RBC % Seg Neutrophils # Seg Neutrophils # Man Lymphocytes # (Manual) PT 18.9 H INR 1.53 H APTT Fibrinogen ABG pH POC ABG pCO2 POC ABG pO2 ABG pO2 ABG HCO3 ABG Base Excess ABG Hemoglobin ABG Oxyhemoglobin ABG Sodium ABG Potassium ABG Chloride ABG Glucose Carboxyhemoglobin Sodium 147 H Potassium Chloride 116.5 H Carbon Dioxide 16 L BUN 121 H Creatinine 8.6 H Glucose 147 H POC Glucose 125 H Lactic Acid Calcium 6.5 L Phosphorus Magnesium Total Bilirubin 5.10 H AST 349 H ALT 214 H Alkaline Phosphatase Lactate Dehydrogenase Total Protein 4.9 L Albumin 2.0 L Arterial Blood Glucose Arterial Blood Ionized Calcium Urine WBC (Auto) Urine Creatinine Complement C3 Complement C4 Crossmatch 06/15/21 06/15/21 06/15/21 11:38 17:07 23:24 WBC RBC Hgb Hct MCV MCH MCHC RDW Plt Count Lymph % (Auto) Person % (Auto) Lymph # (Auto) Person # (Auto) Seg Neutrophils % Seg Neuts % (Manual) Lymphocytes % (Manual) Nucleated RBC % Seg Neutrophils # Seg Neutrophils # Man Lymphocytes # (Manual) PT INR APTT Fibrinogen ABG pH POC ABG pCO2 POC ABG pO2 ABG pO2 ABG HCO3 ABG Base Excess ABG Hemoglobin ABG Oxyhemoglobin ABG Sodium ABG Potassium ABG Chloride ABG Glucose Carboxyhemoglobin Sodium Potassium Chloride Carbon Dioxide BUN Creatinine Glucose POC Glucose 160 H 161 H 166 H Lactic Acid Calcium Phosphorus Magnesium Total Bilirubin AST ALT Alkaline Phosphatase Lactate Dehydrogenase Total Protein Albumin Arterial Blood Glucose Arterial Blood Ionized Calcium Urine WBC (Auto) Urine Creatinine Complement C3 Complement C4 Crossmatch 06/16/21 06/16/21 06/16/21 05:47 06:15 06:15 WBC 12.2 H RBC 3.42 L Hgb 8.6 L Hct 25.7 L MCV 75 L MCH 25 L MCHC RDW 22.6 H Plt Count 121 L Lymph % (Auto) Person % (Auto) Lymph # (Auto) Person # (Auto) Seg Neutrophils % Seg Neuts % (Manual) Lymphocytes % (Manual) Nucleated RBC % Seg Neutrophils # Seg Neutrophils # Man Lymphocytes # (Manual) PT INR APTT Fibrinogen ABG pH POC ABG pCO2 POC ABG pO2 ABG pO2 ABG HCO3 ABG Base Excess ABG Hemoglobin ABG Oxyhemoglobin ABG Sodium ABG Potassium ABG Chloride ABG Glucose Carboxyhemoglobin Sodium 147 H Potassium Chloride 108.3 H Carbon Dioxide 15 L BUN 82 H Creatinine 6.6 H Glucose 178 H POC Glucose 136 H Lactic Acid Calcium 7.4 L Phosphorus Magnesium Total Bilirubin 5.30 H AST 306 H ALT 201 H Alkaline Phosphatase 195 H Lactate Dehydrogenase Total Protein 5.9 L D Albumin 2.4 L Arterial Blood Glucose Arterial Blood Ionized Calcium Urine WBC (Auto) Urine Creatinine Complement C3 Complement C4 Crossmatch 06/16/21 06/16/21 06/16/21 11:41 18:23 23:40 WBC RBC Hgb Hct MCV MCH MCHC RDW Plt Count Lymph % (Auto) Person % (Auto) Lymph # (Auto) Person # (Auto) Seg Neutrophils % Seg Neuts % (Manual) Lymphocytes % (Manual) Nucleated RBC % Seg Neutrophils # Seg Neutrophils # Man Lymphocytes # (Manual) PT INR APTT Fibrinogen ABG pH POC ABG pCO2 POC ABG pO2 ABG pO2 ABG HCO3 ABG Base Excess ABG Hemoglobin ABG Oxyhemoglobin ABG Sodium ABG Potassium ABG Chloride ABG Glucose Carboxyhemoglobin Sodium Potassium Chloride Carbon Dioxide BUN Creatinine Glucose POC Glucose 169 H 172 H 161 H Lactic Acid Calcium Phosphorus Magnesium Total Bilirubin AST ALT Alkaline Phosphatase Lactate Dehydrogenase Total Protein Albumin Arterial Blood Glucose Arterial Blood Ionized Calcium Urine WBC (Auto) Urine Creatinine Complement C3 Complement C4 Crossmatch 06/17/21 06/17/21 06/17/21 05:25 08:00 08:00 WBC 17.4 H RBC 3.62 L Hgb 9.1 L Hct 27.1 L MCV 75 L MCH 25 L MCHC RDW 22.8 H Plt Count Lymph % (Auto) Person % (Auto) Lymph # (Auto) Person # (Auto) Seg Neutrophils % Seg Neuts % (Manual) Lymphocytes % (Manual) Nucleated RBC % Seg Neutrophils # Seg Neutrophils # Man Lymphocytes # (Manual) PT INR APTT Fibrinogen ABG pH POC ABG pCO2 POC ABG pO2 ABG pO2 ABG HCO3 ABG Base Excess ABG Hemoglobin ABG Oxyhemoglobin ABG Sodium ABG Potassium ABG Chloride ABG Glucose Carboxyhemoglobin Sodium Potassium 3.5 L Chloride Carbon Dioxide BUN 51 H Creatinine 4.2 H Glucose 182 H POC Glucose 170 H Lactic Acid Calcium 7.5 L Phosphorus Magnesium Total Bilirubin AST ALT Alkaline Phosphatase Lactate Dehydrogenase Total Protein Albumin Arterial Blood Glucose Arterial Blood Ionized Calcium Urine WBC (Auto) Urine Creatinine Complement C3 Complement C4 Crossmatch 06/17/21 06/17/21 06/17/21 11:24 17:13 23:59 WBC RBC Hgb Hct MCV MCH MCHC RDW Plt Count Lymph % (Auto) Person % (Auto) Lymph # (Auto) Person # (Auto) Seg Neutrophils % Seg Neuts % (Manual) Lymphocytes % (Manual) Nucleated RBC % Seg Neutrophils # Seg Neutrophils # Man Lymphocytes # (Manual) PT INR APTT Fibrinogen ABG pH POC ABG pCO2 POC ABG pO2 ABG pO2 ABG HCO3 ABG Base Excess ABG Hemoglobin ABG Oxyhemoglobin ABG Sodium ABG Potassium ABG Chloride ABG Glucose Carboxyhemoglobin Sodium Potassium Chloride Carbon Dioxide BUN Creatinine Glucose POC Glucose 164 H 186 H 205 H Lactic Acid Calcium Phosphorus Magnesium Total Bilirubin AST ALT Alkaline Phosphatase Lactate Dehydrogenase Total Protein Albumin Arterial Blood Glucose Arterial Blood Ionized Calcium Urine WBC (Auto) Urine Creatinine Complement C3 Complement C4 Crossmatch 06/18/21 06/18/21 06/18/21 04:00 04:00 04:00 WBC 22.8 H RBC 3.51 L Hgb 8.8 L Hct 26.7 L MCV 76 L MCH 25 L MCHC RDW 22.7 H Plt Count 136 L Lymph % (Auto) Person % (Auto) Lymph # (Auto) Person # (Auto) Seg Neutrophils % Seg Neuts % (Manual) Lymphocytes % (Manual) Nucleated RBC % Seg Neutrophils # Seg Neutrophils # Man Lymphocytes # (Manual) PT 16.3 H INR 1.26 H APTT Fibrinogen ABG pH POC ABG pCO2 POC ABG pO2 ABG pO2 ABG HCO3 ABG Base Excess ABG Hemoglobin ABG Oxyhemoglobin ABG Sodium ABG Potassium ABG Chloride ABG Glucose Carboxyhemoglobin Sodium Potassium 3.5 L Chloride Carbon Dioxide BUN 79 H Creatinine 6.2 H Glucose 203 H POC Glucose Lactic Acid Calcium 7.9 L Phosphorus Magnesium Total Bilirubin AST ALT Alkaline Phosphatase Lactate Dehydrogenase Total Protein Albumin Arterial Blood Glucose Arterial Blood Ionized Calcium Urine WBC (Auto) Urine Creatinine Complement C3 Complement C4 Crossmatch 06/18/21 06/18/21 06/18/21 05:26 11:46 17:29 WBC RBC Hgb Hct MCV MCH MCHC RDW Plt Count Lymph % (Auto) Person % (Auto) Lymph # (Auto) Person # (Auto) Seg Neutrophils % Seg Neuts % (Manual) Lymphocytes % (Manual) Nucleated RBC % Seg Neutrophils # Seg Neutrophils # Man Lymphocytes # (Manual) PT INR APTT Fibrinogen ABG pH POC ABG pCO2 POC ABG pO2 ABG pO2 ABG HCO3 ABG Base Excess ABG Hemoglobin ABG Oxyhemoglobin ABG Sodium ABG Potassium ABG Chloride ABG Glucose Carboxyhemoglobin Sodium Potassium Chloride Carbon Dioxide BUN Creatinine Glucose POC Glucose 187 H 197 H 174 H Lactic Acid Calcium Phosphorus Magnesium Total Bilirubin AST ALT Alkaline Phosphatase Lactate Dehydrogenase Total Protein Albumin Arterial Blood Glucose Arterial Blood Ionized Calcium Urine WBC (Auto) Urine Creatinine Complement C3 Complement C4 Crossmatch 06/18/21 06/19/21 06/19/21 23:15 05:00 05:06 WBC 36.4 H RBC Hgb 9.3 L Hct 29.0 L MCV 77 L MCH 25 L MCHC RDW 22.9 H Plt Count 116 L Lymph % (Auto) Person % (Auto) Lymph # (Auto) Person # (Auto) Seg Neutrophils % Seg Neuts % (Manual) Lymphocytes % (Manual) Nucleated RBC % Seg Neutrophils # Seg Neutrophils # Man Lymphocytes # (Manual) PT INR APTT Fibrinogen ABG pH POC ABG pCO2 POC ABG pO2 ABG pO2 ABG HCO3 ABG Base Excess ABG Hemoglobin ABG Oxyhemoglobin ABG Sodium ABG Potassium ABG Chloride ABG Glucose Carboxyhemoglobin Sodium Potassium Chloride Carbon Dioxide BUN Creatinine Glucose POC Glucose 135 H 144 H Lactic Acid Calcium Phosphorus Magnesium Total Bilirubin AST ALT Alkaline Phosphatase Lactate Dehydrogenase Total Protein Albumin Arterial Blood Glucose Arterial Blood Ionized Calcium Urine WBC (Auto) Urine Creatinine Complement C3 Complement C4 Crossmatch 06/19/21 06/19/21 12:03 Unknown WBC RBC Hgb Hct MCV MCH MCHC RDW Plt Count Lymph % (Auto) Person % (Auto) Lymph # (Auto) Person # (Auto) Seg Neutrophils % Seg Neuts % (Manual) Lymphocytes % (Manual) Nucleated RBC % Seg Neutrophils # Seg Neutrophils # Man Lymphocytes # (Manual) PT INR APTT Fibrinogen ABG pH POC ABG pCO2 POC ABG pO2 ABG pO2 ABG HCO3 ABG Base Excess ABG Hemoglobin ABG Oxyhemoglobin ABG Sodium ABG Potassium ABG Chloride ABG Glucose Carboxyhemoglobin Sodium Potassium 3.2 L Chloride Carbon Dioxide BUN 55 H Creatinine 4.0 H Glucose 152 H POC Glucose 138 H Lactic Acid Calcium 7.9 L Phosphorus Magnesium 1.60 L Total Bilirubin 4.30 H AST 181 H ALT 149 H Alkaline Phosphatase 379 H Lactate Dehydrogenase Total Protein Albumin 2.4 L Arterial Blood Glucose Arterial Blood Ionized Calcium Urine WBC (Auto) Urine Creatinine Complement C3 Complement C4 Crossmatch
[2021-06-19] MEDS ORDERED: amLODIPine 5 MG TAB PO SCH (15:00)
[2021-06-19] MEDS ORDERED: POTASSIUM CHLORIDE 20 MEQ PACKET FEEDTUBE SCH (15:00)
[2021-06-19] MEDS ORDERED: MAGNESIUM SULFATE 2 GM/50 ML BAG IV SCH (15:00)
[2021-06-19] MEDS: HEPARIN 5,000 UNIT/1 ML VIAL SUB-Q SCH ×2 (17:05→21:29)
[2021-06-19] MEDS: LANSOPRAZOLE 30 MG SOLUTAB FEEDTUBE SCH (21:29)
[2021-06-20] MEDS: INSULIN REGULAR, HUMAN 100 UNITS/1 ML SUB-Q SCH ×4 (01:11→18:11)
--- NOTE | 2021-06-20 04:05 | XRay Report ---
CHEST 1 VIEW INDICATION / CLINICAL INFORMATION: Intubated- F/U. Respiratory distress FINDINGS: SUPPORT DEVICES: No significant change in position. HEART / MEDIASTINUM: The cardiomediastinal silhouette has not significantly changed in the interim. LUNGS / PLEURA: Increasing bibasilar airspace opacity from 06/18/2021. No pneumothorax. Signer Name: Howard Donovan MD Signed: 06/20/2021 4:01 AM Workstation Name: [id number]
[2021-06-20 05:20] LABS: Hematocrit 27.8 % (30.3-42.9); Mean Corpuscular HGB Conc 32 % (30-34); Mean Corpuscular Volume 77 fl (79-97); Platelet Count 119 K/mm3 (140-440); Red Blood Count 3.62 M/mm3 (3.65-5.03)
[2021-06-20 05:21] LABS: Red Cell Distribution Width 23.3 % (13.2-15.2)
[2021-06-20 05:27] LABS: Calcium 8.3 mg/dL (8.4-10.2)
[2021-06-20 06:25] LABS: Total Cells Counted 100
[2021-06-20 06:26] LABS: Anisocytosis 2+; Hypochromasia 1+; Platelet Estimate Consistent w Auto; Poikilocytosis 1+; Target Cells 1+
[2021-06-20] MEDS: HEPARIN 5,000 UNIT/1 ML VIAL SUB-Q SCH ×3 (08:24→21:38)
--- NOTE | 2021-06-20 09:07 | Progress Note ---
Assessment and Plan - Patient Problems (1) Acute kidney failure Current Visit: Yes Status: Acute Plan to address problem: likely secondary to acute tubular necrosis in the setting of cardiac arrest and severely decreased hemoglobin levels in the setting of upper GI bleed. Urinalysis also concerning for evidence of microscopic hematuria and proteinur ia, indicating a possible underlying glomerulonephritis picture. Work up for acute GN initiated, Anti GBM Ab, ANCA vasculitis panel pending. Both C3/C4 levels are markedly decreased, hepatitis panel unremarkable. Completed third dose of pulse steroids. avoid all nephrotoxins and maintain mean arterial pressures above 65 mmHg. Renal ultrasound reviewed without any acute abnormalities noted. Pt was initiated on HD, transitioning to MWF HD schedule, since no signs of renal recovery seen. Discussed with patient's daughter and sister regarding goals of care. They are in favor of maintaining full code status for now, currently waiting for neurology input to make further decisions. repeat MRI and EEG currently pending. Once neurological input is given and family still want to cont full aggressive care, will arrange permcath placement. (2) Cardiac arrest Current Visit: Yes Status: Acute Plan to address problem: With return of spontaneous circulation. Off pressor support at this time. Will monitor closely. (3) GI bleed Onset Date: ~06/09/21 Current Visit: Yes Status: Acute Qualifiers: GI bleed type/associated pathology: unspecified gastrointestinal hemorrhage type Qualified Code(s): K92.2 - Gastrointestinal hemorrhage, unspecified Plan to address problem: Pt is post emergent EGD showing large amount of old blood without any evidence of active bleeding sites noted. We will continue to monitor closely. Continues on Protonix drip. follow GI recommendations hemoglobin/hematocrit levels are stable this morning. (4) Acute respiratory failure Current Visit: Yes Status: Acute Plan to address problem: Ventilator management per pulmonology. Stable on current vent settings. Subjective Date of service: 06/20/21 Principal diagnosis: UGI bleed Interval history: Patient remains intubated on vent support. Pt remains oliguric, no signs of significant renal recovery. will probably need continuous churn buttermaker HD. Objective - Vital Signs Vital signs: Vital Signs - 12hr 06/19/21 06/19/21 06/20/21 22:00 23:00 00:00 Temperature 98.2 F Pulse Rate 116 H 118 H 119 H Pulse Rate [ 107 H From Monitor] Respiratory 24 28 H 26 H Rate Blood Pressure 144/96 130/89 141/92 O2 Sat by Pulse 95 96 91 Oximetry 06/20/21 06/20/21 06/20/21 00:42 01:00 02:00 Temperature Pulse Rate 119 H 120 H 121 H Pulse Rate [ From Monitor] Respiratory 26 H 27 H Rate Blood Pressure 128/87 124/81 O2 Sat by Pulse 95 93 95 Oximetry 06/20/21 06/20/21 06/20/21 03:00 03:48 04:00 Temperature 99.3 F Pulse Rate 121 H 81 Pulse Rate [ 107 H From Monitor] Respiratory 26 H 24 Rate Blood Pressure 128/87 O2 Sat by Pulse 96 92 Oximetry 06/20/21 06/20/21 06/20/21 04:01 05:00 06:00 Temperature Pulse Rate 122 H 116 H 113 H Pulse Rate [ From Monitor] Respiratory 25 H 28 H 27 H Rate Blood Pressure 119/89 133/97 123/95 O2 Sat by Pulse 95 97 96 Oximetry 06/20/21 06/20/21 06/20/21 07:00 08:00 08:42 Temperature 98.6 F 98.8 F Pulse Rate 113 H 113 H 113 H Pulse Rate [ 112 H From Monitor] Respiratory 27 H 22 Rate Blood Pressure 122/90 128/93 122/83 O2 Sat by Pulse 96 96 97 Oximetry - General Appearance General appearance: appears stated age, cachectic, sedated on ventilator, intubated EENT: ATNC, mucous membranes moist Neck: no JVD Respiratory: Present: Decreased Breath Sounds Cardiology: regular, S1S2 Gastrointestinal: normoactive bowel sounds Integumentary: no rash Neurologic: other (intubated, sedated ) - Lab 06/20/21 04:38 06/20/21 04:38 Most recent lab results ABG pH 7.419 (7.320-7.450) 06/15/21 03:39 ABG pCO2 24.1 mm Hg 06/12/21 04:50 ABG pO2 127.8 mm Hg (80.0-90.0) H 06/12/21 04:50 ABG HCO3 13.2 mmol/L (20.0-26.0) L 06/12/21 04:50 ABG O2 Saturation 99.0 (0-100) 06/15/21 03:39 Calcium 8.3 mg/dL (8.4-10.2) L 06/20/21 04:38 Phosphorus 4.60 mg/dL (2.5-4.5) H 06/20/21 04:38 Magnesium 2.40 mg/dL (1.7-2.3) H 06/20/21 04:38 Urine Creatinine 28.0 mg/dL (0.1-20.0) H 06/13/21 00:16 Urine Sodium 109 mmol/L 06/13/21 00:16 Medications & Allergies - Medications Allergies/Adverse Reactions: Allergies No Known Allergies Allergy (Verified 05/22/16 22:45) Home Medications: Home Medications Medication Instructions Recorded Confirmed Last Taken Type No Known Home Medications [No 06/09/21 06/09/21 Unknown History Reported Home Medications] Active Medications: Generic Name Dose Route Start Last Admin Trade Name Freq PRN Reason Stop Dose Admin Amlodipine Besylate 10 mg 06/20/21 10:00 Amlodipine 10 Mg Tab PO QDAY [facility] Lipase/Protease/Amylase 1 each 06/14/21 16:23 Lipase 10,500/Protease 25,000/Amylase 43,750 (Units) Dr Aponte FEEDTUBE PRN PRN For Clogged Feeding Tube Dextrose 50 ml 06/09/21 11:13 Dextrose 50% In Water (25gm) 50 Ml Syringe IV Q30MIN PRN Hypoglycemia Protocol Fentanyl 25 mcg 06/14/21 15:21 06/19/21 21:29 Fentanyl 100 Mcg/2 Ml Inj IV 25 mcg Q4HR PRN Administration Pain, Moderate (4-6) Heparin Sodium (Porcine) 5,000 unit 06/19/21 14:00 06/20/21 08:24 Heparin 5,000 Unit/1 Ml Vial SUB-Q 5,000 unit Q8HR GABINO Administration Hydrophilic Ointment 1 applic 06/09/21 03:26 06/12/21 20:00 Lip Therapy Vaseline TP 1 applic Q2HR PRN Administration Dry Lips Sodium Chloride 100 mls @ 999 mls/hr 06/17/21 11:14 Nacl 0.9% IV BURKE PRN Hypotension Insulin Human Regular 0 units 06/18/21 12:00 06/20/21 06:50 Insulin Regular, Human 100 Units/1 Ml SUB-Q Not Given Q6H [facility] Protocol Lansoprazole 30 mg 06/19/21 22:00 06/19/21 21:29 Lansoprazole 30 Mg Solutab FEEDTUBE 30 mg BID GABINO Administration Multi-Ingred Cream/Lotion/Oil/Oint 1 applic 06/09/21 03:26 06/12/21 20:05 Mineral Oil/Petrolatum, White Ophth Oint 3.5 Gm OU 1 applic Q4HR PRN Administration Dry Eye(s) Simple Syrup 15 ml 06/14/21 16:23 Simple Syrup 15 Ml FEEDTUBE PRN PRN Hypoglycemia Simple Syrup 30 ml 06/14/21 16:23 Simple Syrup 15 Ml FEEDTUBE PRN PRN Hypoglycemia Sodium Bicarbonate 325 mg 06/14/21 16:23 Sodium Bicarbonate 325 Mg Tab FEEDTUBE PRN PRN For Clogged Feeding Tube Sodium Chloride 10 ml 06/09/21 22:00 06/19/21 21:31 Sodium Chloride 0.9% 10 Ml Flush Syringe IV 10 ml BID GABINO Administration Sodium Chloride 10 ml 06/09/21 11:13 Sodium Chloride 0.9% 10 Ml Flush Syringe IV PRN PRN LINE FLUSH
[2021-06-20] MEDS: LANSOPRAZOLE 30 MG SOLUTAB FEEDTUBE SCH ×2 (09:24→21:38)
[2021-06-20] MEDS ORDERED: amLODIPine 10 MG TAB PO SCH (10:00)
--- NOTE | 2021-06-20 12:08 | Magnetic Resonance Report ---
MR brain wo/w con INDICATION / CLINICAL INFORMATION: 60 years Female; Assess neurological status. TECHNIQUE: Multiplanar, multisequence MR images of the brain were obtained. COMPARISON: The study is compared to previous MRI of 06/14/2021. FINDINGS: BRAIN / INTRACRANIAL CONTENTS: On the previous MRI of 06/14/2021, there was note of diffuse increased FLAIR signal involving the cerebral cortex inferiorly symmetric fashion, particularly along the poste rior segments compatible with diffuse ischemic changes in this patient with history of hypoxia. There is now developing restricted diffusion within the deeper a cerebral white matter, particularly the c entrum semiovale from 06/14/2021 compatible with evolving acute ischemia within the central regions. T here are also progressing edematous changes of the cortex with mild sulcal effacement. The abnormal F LAIR signal also involves the splenium of the corpus of callosum. Given the extent of symmetry, proce ss such as encephalitis or post ictal changes would be less likely. The ventricular system appears unchanged in size and configuration. No developing extra-axial fluid c ollections are identified. No focal intra-axial enhancing lesions are appreciated. CRANIOCERVICAL JUNCTION: No significant abnormality. VASCULAR FLOW-VOIDS: No significant abnormality. ORBITS: No significant abnormality of visualized orbits. SINUSES / MASTOIDS: No significant abnormality in the visualized paranasal sinuses or mastoid air bran ls. ADDITIONAL FINDINGS: None. IMPRESSION: 1. There has been interval progression of the diffuse edema involving the cerebral cortex with develo ping sulcal effacement as detailed above. There is also developing restricted diffusion within the de eper cerebral white matter bilaterally most consistent with evolving ischemia in this patient with pr evious reported history of hypoxia. Signer Name: Omkar Cantu MD Signed: 06/20/2021 12:03 PM Workstation Name: [id number]
--- NOTE | 2021-06-20 14:15 | Progress Note ---
Assessment and Plan 60 y/o female with cardiac arrest, intubated found to have UPPER GI bleed but no exact source of bleeding found 06/20/21: Very very poor prognosis with EEG and MRI reading. Await Neurology evaluation but need to arrange family meeting to discuss goals of care with family. Spoke with CM about this. Maintain supportive measures. HD today. 06/19/21: UDS is still positive for benzo's and now still positive for marijuana. Await MRI as recommended by neuro, hopeful for EEG today. Follow up renal recs. Having loose stools with elevate white count. Will send C. Diff toxin screen. Hold on empiric abx therapy for right now. Need neurology to speak with family as mental status is now our biggest issue. 06/18/21: Check UDS today. Will speak with renal about overall perspective on prognosis. Will need neurology to weigh in again as we need to speak to the family soon about goals of care. Continue supportive measures. 06/15/21: Hold on checking UDS today given that dialysis will start today. Steroids today. Monitor blood sugars. Await neurology input in regards to MRI reading. Patient was hypoglycemic on admission (20). MRI mentions that hypoglycemia could cause current presentation seen on MRI. Sugars have been stable since admission. Ok with increasing tube feeds as she tolerated trickle feeds. HgB at 7.5 this am. No evidence of acute bleed. repeat tomorrow and if less than 7 then transfuse. If large drop then would need to reconsult GI. Guarded prognosis. 06/14/21: UDS still positive for benzo's. Spoke with renal and went ahead and put HD catheter in (spoke with all of family on speaker phone) in anticipation of possible HD. Will check daily UDS until clear as this could effect mental state, along with uremia and possible anoxic brain injury. Await MRI and await Neurology input. Guarded prognosis. 06/13/21: Will check UDS daily to see if benzo's continue to hang around. Not sure if dialysis can help but may need this to clear out drugs to see if patient will wake up. Renal has already seen today so await there assessment tomorrow after viewing my note. repeat UDS again as patient is still making urine. No new neurology notes or follow up. MRI not done, head CT suggests anoxic brain injury but not definite. Still think that all other metabolic derangements would need to be addressed. Guarded prognosis. 06/12/21: Reviewed chart and Neurology note. Will send UDS to make sure benzo's have cleared as she was on a versed drip. Discontinued all mind altering therapy. Very guarded prognosis. Patient may have been down longer than known with CPR. 1. Discontinue all sedation 2. Attempt PSV and then extubate 3. Follow up GI recs 4. Will continue to follow, with serial H/H's. CCT 31 minutes. Subjective Date of service: 06/20/21 Principal diagnosis: UGI bleed Interval history: EEG done, concern for diffuse slowing and now MRI done showing diffuse edema with effacement consistent with anoxic brain injury. Remain unresponsive. Fluids did not help yesterday as patient had some desaturations. Objective Vital Signs - 12hr 06/20/21 06/20/21 06/20/21 03:00 03:48 04:00 Temperature 99.3 F Pulse Rate 121 H 81 Pulse Rate [ 107 H From Monitor] Respiratory 26 H 24 Rate Blood Pressure 128/87 O2 Sat by Pulse 96 92 Oximetry 06/20/21 06/20/21 06/20/21 04:01 05:00 06:00 Temperature Pulse Rate 122 H 116 H 113 H Pulse Rate [ From Monitor] Respiratory 25 H 28 H 27 H Rate Blood Pressure 119/89 133/97 123/95 O2 Sat by Pulse 95 97 96 Oximetry 06/20/21 06/20/21 06/20/21 07:00 08:00 08:42 Temperature 98.6 F 98.8 F Pulse Rate 113 H 113 H 113 H Pulse Rate [ 112 H From Monitor] Respiratory 27 H 22 Rate Blood Pressure 122/90 128/93 122/83 O2 Sat by Pulse 96 96 97 Oximetry 06/20/21 06/20/21 06/20/21 09:00 09:24 11:35 Temperature Pulse Rate 112 H 113 H Pulse Rate [ From Monitor] Respiratory 26 H Rate Blood Pressure 128/87 126/84 O2 Sat by Pulse 97 90 Oximetry 06/20/21 06/20/21 06/20/21 12:00 12:05 12:29 Temperature 99.2 F Pulse Rate 112 H 110 H Pulse Rate [ 112 H From Monitor] Respiratory 34 H Rate Blood Pressure 112/77 O2 Sat by Pulse 86 Oximetry 06/20/21 06/20/21 13:00 14:00 Temperature Pulse Rate 109 H 108 H Pulse Rate [ From Monitor] Respiratory 32 H 36 H Rate Blood Pressure 110/71 100/69 O2 Sat by Pulse 86 93 Oximetry Constitutional: other (intubated, critically ill) Eyes: non-icteric Neck: supple Effort: normal Ascultation: Bilateral: other Cardiovascular: regular rate and rhythm (no mrg) Gastrointestinal: normoactive bowel sounds Integumentary: normal Extremities: no cyanosis, no edema, pink and warm Neurologic: other (unresponsive) Psychiatric: other (unable to assess) CBC and BMP: 06/20/21 04:38 06/20/21 04:38 ABG, PT/INR, D-dimer: ABG ABG pH 7.419 (7.320-7.450) 06/15/21 03:39 POC ABG pCO2 21.2 mmHg (32.0-48.0) L 06/15/21 03:39 ABG pCO2 24.1 mm Hg 06/12/21 04:50 POC ABG pO2 146.6 mmHg (83-108) H 06/15/21 03:39 ABG pO2 127.8 mm Hg (80.0-90.0) H 06/12/21 04:50 POC ABG HCO3 13.4 06/15/21 03:39 ABG O2 Saturation 99.0 (0-100) 06/15/21 03:39 PT/INR, D-dimer PT 16.3 Sec. (12.2-14.9) H 06/18/21 04:00 INR 1.26 (0.87-1.13) H 06/18/21 04:00 Abnormal lab findings: Abnormal Labs 06/09/21 06/09/21 06/09/21 03:27 03:42 03:59 WBC RBC 1.57 L Hgb 3.0 L* Hct 11.8 L* MCV 75 L MCH 19 L MCHC 26 L RDW 21.7 H Plt Count 109 L Lymph % (Auto) 9.7 L [place] % (Auto) 8.5 H Lymph # (Auto) 0.9 L [place] # (Auto) Seg Neutrophils % 81.2 H Seg Neuts % (Manual) Lymphocytes % (Manual) Nucleated RBC % Seg Neutrophils # Seg Neutrophils # Man Lymphocytes # (Manual) Monocytes # (Manual) PT INR APTT Fibrinogen ABG pH POC ABG pCO2 POC ABG pO2 ABG pO2 ABG HCO3 ABG Base Excess ABG Hemoglobin ABG Oxyhemoglobin ABG Sodium ABG Potassium ABG Chloride ABG Glucose Carboxyhemoglobin Sodium Potassium Chloride 95.2 L Carbon Dioxide 8 L* BUN 18 H Creatinine Glucose 540 H* POC Glucose Lactic Acid 28.20 H* Calcium 11.5 H Phosphorus Magnesium Total Bilirubin AST 411 H ALT 106 H Alkaline Phosphatase Lactate Dehydrogenase Total Protein 4.9 L Albumin 2.4 L Arterial Blood Glucose Arterial Blood Ionized Calcium Urine WBC (Auto) Urine Creatinine Complement C3 Complement C4 Crossmatch 06/09/21 06/09/21 06/09/21 03:59 04:00 04:04 WBC RBC Hgb Hct MCV MCH MCHC RDW Plt Count Lymph % (Auto) [place] % (Auto) Lymph # (Auto) [place] # (Auto) Seg Neutrophils % Seg Neuts % (Manual) Lymphocytes % (Manual) Nucleated RBC % Seg Neutrophils # Seg Neutrophils # Man Lymphocytes # (Manual) Monocytes # (Manual) PT 34.3 H INR 3.36 H APTT 66.3 H* Fibrinogen ABG pH 6.845 L POC ABG pCO2 POC ABG pO2 116.6 H ABG pO2 ABG HCO3 ABG Base Excess ABG Hemoglobin 2.6 L ABG Oxyhemoglobin 90.6 L ABG Sodium ABG Potassium 3.0 L ABG Chloride ABG Glucose 334 H Carboxyhemoglobin 1.8 H Sodium Potassium Chloride Carbon Dioxide BUN Creatinine Glucose POC Glucose Lactic Acid Calcium Phosphorus Magnesium Total Bilirubin AST ALT Alkaline Phosphatase Lactate Dehydrogenase Total Protein Albumin Arterial Blood Glucose 334 H Arterial Blood Ionized Calcium Urine WBC (Auto) Urine Creatinine Complement C3 Complement C4 Crossmatch See Detail 06/09/21 06/09/21 06/09/21 05:16 11:42 11:44 WBC RBC Hgb Hct MCV MCH MCHC RDW Plt Count Lymph % (Auto) [place] % (Auto) Lymph # (Auto) [place] # (Auto) Seg Neutrophils % Seg Neuts % (Manual) Lymphocytes % (Manual) Nucleated RBC % Seg Neutrophils # Seg Neutrophils # Man Lymphocytes # (Manual) Monocytes # (Manual) PT INR APTT Fibrinogen ABG pH POC ABG pCO2 POC ABG pO2 ABG pO2 ABG HCO3 ABG Base Excess ABG Hemoglobin ABG Oxyhemoglobin ABG Sodium ABG Potassium ABG Chloride ABG Glucose Carboxyhemoglobin Sodium Potassium Chloride 109.5 H Carbon Dioxide 4 L* BUN 19 H Creatinine Glucose 158 H POC Glucose 191 H Lactic Acid 25.20 H* Calcium 7.8 L D Phosphorus Magnesium Total Bilirubin AST ALT Alkaline Phosphatase Lactate Dehydrogenase 2208 H Total Protein Albumin Arterial Blood Glucose Arterial Blood Ionized Calcium Urine WBC (Auto) Urine Creatinine Complement C3 Complement C4 Crossmatch 06/09/21 06/09/21 06/10/21 12:27 12:27 04:21 WBC 14.2 H RBC 3.58 L Hgb 8.9 L D Hct 29.9 L D MCV MCH 25 L MCHC RDW 22.0 H Plt Count 94 L Lymph % (Auto) [place] % (Auto) Lymph # (Auto) [place] # (Auto) Seg Neutrophils % Seg Neuts % (Manual) 87.0 H Lymphocytes % (Manual) 5.0 L Nucleated RBC % Seg Neutrophils # Seg Neutrophils # Man 12.4 H Lymphocytes # (Manual) 0.7 L Monocytes # (Manual) PT 36.0 H INR 3.58 H APTT 52.6 H Fibrinogen 83 L* ABG pH 7.323 L POC ABG pCO2 POC ABG pO2 ABG pO2 152.9 H ABG HCO3 12.6 L ABG Base Excess -12.0 L ABG Hemoglobin 9.2 L ABG Oxyhemoglobin ABG Sodium ABG Potassium ABG Chloride ABG Glucose Carboxyhemoglobin Sodium Potassium Chloride Carbon Dioxide BUN Creatinine Glucose POC Glucose Lactic Acid Calcium Phosphorus Magnesium Total Bilirubin AST ALT Alkaline Phosphatase Lactate Dehydrogenase Total Protein Albumin Arterial Blood Glucose Arterial Blood Ionized Calcium Urine WBC (Auto) Urine Creatinine Complement C3 Complement C4 Crossmatch 06/10/21 06/10/21 06/10/21 04:27 04:27 06:59 WBC 14.1 H RBC Hgb Hct MCV MCH 25 L MCHC RDW 20.0 H Plt Count 99 L Lymph % (Auto) 4.2 L [place] % (Auto) 8.6 H Lymph # (Auto) 0.6 L [place] # (Auto) 1.2 H Seg Neutrophils % 86.6 H Seg Neuts % (Manual) Lymphocytes % (Manual) Nucleated RBC % Seg Neutrophils # 12.2 H Seg Neutrophils # Man Lymphocytes # (Manual) Monocytes # (Manual) PT INR APTT Fibrinogen ABG pH POC ABG pCO2 POC ABG pO2 ABG pO2 ABG HCO3 ABG Base Excess ABG Hemoglobin ABG Oxyhemoglobin ABG Sodium ABG Potassium ABG Chloride ABG Glucose Carboxyhemoglobin Sodium 146 H Potassium 3.4 L Chloride 115.2 H Carbon Dioxide 14 L D BUN 30 H Creatinine 1.9 H D Glucose 122 H POC Glucose Lactic Acid 4.60 H* Calcium 7.4 L Phosphorus Magnesium Total Bilirubin 7.00 H AST 2708 H ALT 522 H Alkaline Phosphatase Lactate Dehydrogenase Total Protein 4.8 L Albumin 2.4 L Arterial Blood Glucose Arterial Blood Ionized Calcium Urine WBC (Auto) Urine Creatinine Complement C3 Complement C4 Crossmatch 06/10/21 06/10/21 06/10/21 06:59 08:23 08:47 WBC RBC Hgb Hct MCV MCH MCHC RDW Plt Count Lymph % (Auto) [place] % (Auto) Lymph # (Auto) [place] # (Auto) Seg Neutrophils % Seg Neuts % (Manual) Lymphocytes % (Manual) Nucleated RBC % Seg Neutrophils # Seg Neutrophils # Man Lymphocytes # (Manual) Monocytes # (Manual) PT 26.8 H INR 2.42 H APTT Fibrinogen ABG pH POC ABG pCO2 POC ABG pO2 ABG pO2 ABG HCO3 ABG Base Excess ABG Hemoglobin ABG Oxyhemoglobin ABG Sodium ABG Potassium ABG Chloride ABG Glucose Carboxyhemoglobin Sodium Potassium Chloride Carbon Dioxide BUN Creatinine Glucose POC Glucose 121 H Lactic Acid Calcium Phosphorus Magnesium Total Bilirubin AST ALT Alkaline Phosphatase Lactate Dehydrogenase Total Protein Albumin Arterial Blood Glucose Arterial Blood Ionized Calcium Urine WBC (Auto) 23.0 H Urine Creatinine Complement C3 Complement C4 Crossmatch 06/10/21 06/10/21 06/11/21 11:47 23:46 03:52 WBC RBC Hgb Hct MCV MCH MCHC RDW Plt Count Lymph % (Auto) [place] % (Auto) Lymph # (Auto) [place] # (Auto) Seg Neutrophils % Seg Neuts % (Manual) Lymphocytes % (Manual) Nucleated RBC % Seg Neutrophils # Seg Neutrophils # Man Lymphocytes # (Manual) Monocytes # (Manual) PT INR APTT Fibrinogen ABG pH POC ABG pCO2 POC ABG pO2 ABG pO2 148.9 H ABG HCO3 13.0 L ABG Base Excess -10.1 L ABG Hemoglobin 9.1 L ABG Oxyhemoglobin ABG Sodium ABG Potassium ABG Chloride ABG Glucose Carboxyhemoglobin Sodium Potassium Chloride Carbon Dioxide BUN Creatinine Glucose POC Glucose Lactic Acid 4.40 H* 3.30 H* Calcium Phosphorus Magnesium Total Bilirubin AST ALT Alkaline Phosphatase Lactate Dehydrogenase Total Protein Albumin Arterial Blood Glucose Arterial Blood Ionized Calcium Urine WBC (Auto) Urine Creatinine Complement C3 Complement C4 Crossmatch 06/11/21 06/11/21 06/11/21 05:05 10:38 10:38 WBC 12.6 H RBC 3.38 L Hgb 8.5 L Hct 26.3 L MCV 78 L MCH 25 L MCHC RDW 20.6 H Plt Count 97 L Lymph % (Auto) [place] % (Auto) Lymph # (Auto) [place] # (Auto) Seg Neutrophils % Seg Neuts % (Manual) Lymphocytes % (Manual) Nucleated RBC % Seg Neutrophils # Seg Neutrophils # Man Lymphocytes # (Manual) Monocytes # (Manual) PT 23.1 H INR 1.98 H APTT Fibrinogen ABG pH POC ABG pCO2 POC ABG pO2 ABG pO2 ABG HCO3 ABG Base Excess ABG Hemoglobin ABG Oxyhemoglobin ABG Sodium ABG Potassium ABG Chloride ABG Glucose Carboxyhemoglobin Sodium Potassium Chloride Carbon Dioxide BUN Creatinine Glucose POC Glucose Lactic Acid 2.40 H* Calcium Phosphorus Magnesium Total Bilirubin AST ALT Alkaline Phosphatase Lactate Dehydrogenase Total Protein Albumin Arterial Blood Glucose Arterial Blood Ionized Calcium Urine WBC (Auto) Urine Creatinine Complement C3 Complement C4 Crossmatch 06/11/21 06/11/21 06/11/21 10:38 10:38 12:15 WBC RBC Hgb Hct MCV MCH MCHC RDW Plt Count Lymph % (Auto) [place] % (Auto) Lymph # (Auto) [place] # (Auto) Seg Neutrophils % Seg Neuts % (Manual) Lymphocytes % (Manual) Nucleated RBC % Seg Neutrophils # Seg Neutrophils # Man Lymphocytes # (Manual) Monocytes # (Manual) PT INR APTT Fibrinogen ABG pH POC ABG pCO2 POC ABG pO2 ABG pO2 ABG HCO3 ABG Base Excess ABG Hemoglobin ABG Oxyhemoglobin ABG Sodium ABG Potassium ABG Chloride ABG Glucose Carboxyhemoglobin Sodium 147 H Potassium Chloride 118.1 H Carbon Dioxide 11 L BUN 53 H Creatinine 3.2 H D Glucose 104 H POC Glucose Lactic Acid 2.30 H* Calcium 5.9 L* D 5.9 L* Phosphorus 7.10 H Magnesium 1.60 L Total Bilirubin 4.20 H AST 2252 H ALT 540 H Alkaline Phosphatase Lactate Dehydrogenase Total Protein 4.4 L Albumin 2.2 L Arterial Blood Glucose Arterial Blood Ionized Calcium Urine WBC (Auto) Urine Creatinine Complement C3 Complement C4 Crossmatch 06/11/21 06/11/21 06/12/21 14:48 17:45 04:03 WBC 14.7 H RBC Hgb 8.9 L 9.4 L 9.2 L Hct 29.6 L 28.6 L 28.0 L MCV 77 L MCH 25 L MCHC RDW 21.2 H Plt Count 112 L Lymph % (Auto) 5.4 L [place] % (Auto) 8.6 H Lymph # (Auto) 0.8 L [place] # (Auto) 1.3 H Seg Neutrophils % 85.8 H Seg Neuts % (Manual) Lymphocytes % (Manual) Nucleated RBC % Seg Neutrophils # 12.6 H Seg Neutrophils # Man Lymphocytes # (Manual) Monocytes # (Manual) PT INR APTT Fibrinogen ABG pH POC ABG pCO2 POC ABG pO2 ABG pO2 ABG HCO3 ABG Base Excess ABG Hemoglobin ABG Oxyhemoglobin ABG Sodium ABG Potassium ABG Chloride ABG Glucose Carboxyhemoglobin Sodium Potassium Chloride Carbon Dioxide BUN Creatinine Glucose POC Glucose Lactic Acid Calcium Phosphorus Magnesium Total Bilirubin AST ALT Alkaline Phosphatase Lactate Dehydrogenase Total Protein Albumin Arterial Blood Glucose Arterial Blood Ionized Calcium Urine WBC (Auto) Urine Creatinine Complement C3 Complement C4 Crossmatch 06/12/21 06/12/21 06/12/21 04:03 04:03 04:50 WBC RBC Hgb Hct MCV MCH MCHC RDW Plt Count Lymph % (Auto) [place] % (Auto) Lymph # (Auto) [place] # (Auto) Seg Neutrophils % Seg Neuts % (Manual) Lymphocytes % (Manual) Nucleated RBC % Seg Neutrophils # Seg Neutrophils # Man Lymphocytes # (Manual) Monocytes # (Manual) PT 24.1 H INR 2.10 H APTT Fibrinogen ABG pH POC ABG pCO2 POC ABG pO2 ABG pO2 127.8 H ABG HCO3 13.2 L ABG Base Excess -11.0 L ABG Hemoglobin 8.6 L ABG Oxyhemoglobin ABG Sodium ABG Potassium ABG Chloride ABG Glucose Carboxyhemoglobin Sodium 148 H Potassium Chloride 117.8 H Carbon Dioxide 17 L BUN 72 H Creatinine 4.6 H Glucose POC Glucose Lactic Acid Calcium 6.1 L Phosphorus 6.70 H Magnesium Total Bilirubin 3.40 H AST 1494 H ALT 512 H Alkaline Phosphatase Lactate Dehydrogenase Total Protein 4.4 L Albumin 2.2 L Arterial Blood Glucose Arterial Blood Ionized Calcium Urine WBC (Auto) Urine Creatinine Complement C3 Complement C4 Crossmatch 06/12/21 06/12/21 06/13/21 20:15 20:15 00:16 WBC RBC Hgb Hct MCV MCH MCHC RDW Plt Count Lymph % (Auto) [place] % (Auto) Lymph # (Auto) [place] # (Auto) Seg Neutrophils % Seg Neuts % (Manual) Lymphocytes % (Manual) Nucleated RBC % Seg Neutrophils # Seg Neutrophils # Man Lymphocytes # (Manual) Monocytes # (Manual) PT INR APTT Fibrinogen ABG pH POC ABG pCO2 POC ABG pO2 ABG pO2 ABG HCO3 ABG Base Excess ABG Hemoglobin ABG Oxyhemoglobin ABG Sodium ABG Potassium ABG Chloride ABG Glucose Carboxyhemoglobin Sodium Potassium Chloride Carbon Dioxide BUN Creatinine Glucose POC Glucose Lactic Acid Calcium Phosphorus Magnesium Total Bilirubin AST ALT Alkaline Phosphatase Lactate Dehydrogenase Total Protein Albumin Arterial Blood Glucose Arterial Blood Ionized Calcium Urine WBC (Auto) Urine Creatinine 28.0 H Complement C3 40 L Complement C4 4 L Crossmatch 06/13/21 06/13/21 06/13/21 04:00 08:11 08:11 WBC RBC 3.51 L Hgb 8.9 L Hct 26.2 L MCV 75 L MCH 25 L MCHC RDW 21.3 H Plt Count 96 L Lymph % (Auto) [place] % (Auto) Lymph # (Auto) [place] # (Auto) Seg Neutrophils % Seg Neuts % (Manual) Lymphocytes % (Manual) Nucleated RBC % Seg Neutrophils # Seg Neutrophils # Man Lymphocytes # (Manual) Monocytes # (Manual) PT INR APTT Fibrinogen ABG pH POC ABG pCO2 22.8 L POC ABG pO2 115.7 H ABG pO2 ABG HCO3 ABG Base Excess ABG Hemoglobin 7.2 L ABG Oxyhemoglobin ABG Sodium ABG Potassium ABG Chloride 119.0 H ABG Glucose 102 H Carboxyhemoglobin Sodium 147 H Potassium Chloride 117.2 H Carbon Dioxide 15 L BUN 96 H Creatinine 6.1 H Glucose 107 H POC Glucose Lactic Acid Calcium 6.2 L Phosphorus Magnesium Total Bilirubin AST ALT Alkaline Phosphatase Lactate Dehydrogenase Total Protein Albumin Arterial Blood Glucose 102 H Arterial Blood Ionized Calcium Urine WBC (Auto) Urine Creatinine Complement C3 Complement C4 Crossmatch 06/13/21 06/13/21 06/14/21 12:54 14:17 04:35 WBC RBC Hgb Hct MCV MCH MCHC RDW Plt Count Lymph % (Auto) [place] % (Auto) Lymph # (Auto) [place] # (Auto) Seg Neutrophils % Seg Neuts % (Manual) Lymphocytes % (Manual) Nucleated RBC % Seg Neutrophils # Seg Neutrophils # Man Lymphocytes # (Manual) Monocytes # (Manual) PT 18.2 H INR 1.44 H APTT Fibrinogen ABG pH 7.507 H POC ABG pCO2 15.9 L POC ABG pO2 121.2 H ABG pO2 ABG HCO3 ABG Base Excess ABG Hemoglobin 6.3 L ABG Oxyhemoglobin ABG Sodium ABG Potassium ABG Chloride 119.0 H ABG Glucose Carboxyhemoglobin Sodium Potassium Chloride Carbon Dioxide BUN Creatinine Glucose POC Glucose 107 H Lactic Acid Calcium Phosphorus Magnesium Total Bilirubin AST ALT Alkaline Phosphatase Lactate Dehydrogenase Total Protein Albumin Arterial Blood Glucose Arterial Blood Ionized Calcium 3.5 L Urine WBC (Auto) Urine Creatinine Complement C3 Complement C4 Crossmatch 06/14/21 06/14/21 06/14/21 08:45 08:45 08:45 WBC RBC Hgb 9.3 L Hct 27.6 L MCV 75 L MCH 25 L MCHC RDW 21.9 H Plt Count 137 L Lymph % (Auto) [place] % (Auto) Lymph # (Auto) [place] # (Auto) Seg Neutrophils % Seg Neuts % (Manual) Lymphocytes % (Manual) Nucleated RBC % Seg Neutrophils # Seg Neutrophils # Man Lymphocytes # (Manual) Monocytes # (Manual) PT 16.8 H INR 1.30 H APTT Fibrinogen ABG pH POC ABG pCO2 POC ABG pO2 ABG pO2 ABG HCO3 ABG Base Excess ABG Hemoglobin ABG Oxyhemoglobin ABG Sodium ABG Potassium ABG Chloride ABG Glucose Carboxyhemoglobin Sodium 147 H Potassium Chloride 115.5 H Carbon Dioxide 15 L BUN 107 H Creatinine 6.8 H Glucose POC Glucose Lactic Acid Calcium 6.7 L Phosphorus Magnesium Total Bilirubin 5.00 H AST 578 H ALT 298 H Alkaline Phosphatase Lactate Dehydrogenase Total Protein 5.6 L D Albumin 2.3 L Arterial Blood Glucose Arterial Blood Ionized Calcium Urine WBC (Auto) Urine Creatinine Complement C3 Complement C4 Crossmatch 06/14/21 06/15/21 06/15/21 23:31 03:39 04:30 WBC 11.2 H RBC 3.05 L Hgb 7.5 L Hct 23.3 L MCV 76 L MCH 25 L MCHC RDW 23.1 H Plt Count 109 L Lymph % (Auto) [place] % (Auto) Lymph # (Auto) [place] # (Auto) Seg Neutrophils % Seg Neuts % (Manual) 90.0 H Lymphocytes % (Manual) 2.0 L Nucleated RBC % 1.0 H Seg Neutrophils # Seg Neutrophils # Man 10.1 H Lymphocytes # (Manual) 0.2 L Monocytes # (Manual) PT INR APTT Fibrinogen ABG pH POC ABG pCO2 21.2 L POC ABG pO2 146.6 H ABG pO2 ABG HCO3 ABG Base Excess ABG Hemoglobin 8.0 L ABG Oxyhemoglobin ABG Sodium 145.2 H ABG Potassium ABG Chloride 120.0 H ABG Glucose 126 H Carboxyhemoglobin Sodium Potassium Chloride Carbon Dioxide BUN Creatinine Glucose POC Glucose 108 H Lactic Acid Calcium Phosphorus Magnesium Total Bilirubin AST ALT Alkaline Phosphatase Lactate Dehydrogenase Total Protein Albumin Arterial Blood Glucose 126 H Arterial Blood Ionized Calcium Urine WBC (Auto) Urine Creatinine Complement C3 Complement C4 Crossmatch 06/15/21 06/15/21 06/15/21 04:30 04:30 05:14 WBC RBC Hgb Hct MCV MCH MCHC RDW Plt Count Lymph % (Auto) [place] % (Auto) Lymph # (Auto) [place] # (Auto) Seg Neutrophils % Seg Neuts % (Manual) Lymphocytes % (Manual) Nucleated RBC % Seg Neutrophils # Seg Neutrophils # Man Lymphocytes # (Manual) Monocytes # (Manual) PT 18.9 H INR 1.53 H APTT Fibrinogen ABG pH POC ABG pCO2 POC ABG pO2 ABG pO2 ABG HCO3 ABG Base Excess ABG Hemoglobin ABG Oxyhemoglobin ABG Sodium ABG Potassium ABG Chloride ABG Glucose Carboxyhemoglobin Sodium 147 H Potassium Chloride 116.5 H Carbon Dioxide 16 L BUN 121 H Creatinine 8.6 H Glucose 147 H POC Glucose 125 H Lactic Acid Calcium 6.5 L Phosphorus Magnesium Total Bilirubin 5.10 H AST 349 H ALT 214 H Alkaline Phosphatase Lactate Dehydrogenase Total Protein 4.9 L Albumin 2.0 L Arterial Blood Glucose Arterial Blood Ionized Calcium Urine WBC (Auto) Urine Creatinine Complement C3 Complement C4 Crossmatch 06/15/21 06/15/21 06/15/21 11:38 17:07 23:24 WBC RBC Hgb Hct MCV MCH MCHC RDW Plt Count Lymph % (Auto) [place] % (Auto) Lymph # (Auto) [place] # (Auto) Seg Neutrophils % Seg Neuts % (Manual) Lymphocytes % (Manual) Nucleated RBC % Seg Neutrophils # Seg Neutrophils # Man Lymphocytes # (Manual) Monocytes # (Manual) PT INR APTT Fibrinogen ABG pH POC ABG pCO2 POC ABG pO2 ABG pO2 ABG HCO3 ABG Base Excess ABG Hemoglobin ABG Oxyhemoglobin ABG Sodium ABG Potassium ABG Chloride ABG Glucose Carboxyhemoglobin Sodium Potassium Chloride Carbon Dioxide BUN Creatinine Glucose POC Glucose 160 H 161 H 166 H Lactic Acid Calcium Phosphorus Magnesium Total Bilirubin AST ALT Alkaline Phosphatase Lactate Dehydrogenase Total Protein Albumin Arterial Blood Glucose Arterial Blood Ionized Calcium Urine WBC (Auto) Urine Creatinine Complement C3 Complement C4 Crossmatch 06/16/21 06/16/21 06/16/21 05:47 06:15 06:15 WBC 12.2 H RBC 3.42 L Hgb 8.6 L Hct 25.7 L MCV 75 L MCH 25 L MCHC RDW 22.6 H Plt Count 121 L Lymph % (Auto) [place] % (Auto) Lymph # (Auto) [place] # (Auto) Seg Neutrophils % Seg Neuts % (Manual) Lymphocytes % (Manual) Nucleated RBC % Seg Neutrophils # Seg Neutrophils # Man Lymphocytes # (Manual) Monocytes # (Manual) PT INR APTT Fibrinogen ABG pH POC ABG pCO2 POC ABG pO2 ABG pO2 ABG HCO3 ABG Base Excess ABG Hemoglobin ABG Oxyhemoglobin ABG Sodium ABG Potassium ABG Chloride ABG Glucose Carboxyhemoglobin Sodium 147 H Potassium Chloride 108.3 H Carbon Dioxide 15 L BUN 82 H Creatinine 6.6 H Glucose 178 H POC Glucose 136 H Lactic Acid Calcium 7.4 L Phosphorus Magnesium Total Bilirubin 5.30 H AST 306 H ALT 201 H Alkaline Phosphatase 195 H Lactate Dehydrogenase Total Protein 5.9 L D Albumin 2.4 L Arterial Blood Glucose Arterial Blood Ionized Calcium Urine WBC (Auto) Urine Creatinine Complement C3 Complement C4 Crossmatch 06/16/21 06/16/21 06/16/21 11:41 18:23 23:40 WBC RBC Hgb Hct MCV MCH MCHC RDW Plt Count Lymph % (Auto) [place] % (Auto) Lymph # (Auto) [place] # (Auto) Seg Neutrophils % Seg Neuts % (Manual) Lymphocytes % (Manual) Nucleated RBC % Seg Neutrophils # Seg Neutrophils # Man Lymphocytes # (Manual) Monocytes # (Manual) PT INR APTT Fibrinogen ABG pH POC ABG pCO2 POC ABG pO2 ABG pO2 ABG HCO3 ABG Base Excess ABG Hemoglobin ABG Oxyhemoglobin ABG Sodium ABG Potassium ABG Chloride ABG Glucose Carboxyhemoglobin Sodium Potassium Chloride Carbon Dioxide BUN Creatinine Glucose POC Glucose 169 H 172 H 161 H Lactic Acid Calcium Phosphorus Magnesium Total Bilirubin AST ALT Alkaline Phosphatase Lactate Dehydrogenase Total Protein Albumin Arterial Blood Glucose Arterial Blood Ionized Calcium Urine WBC (Auto) Urine Creatinine Complement C3 Complement C4 Crossmatch 06/17/21 06/17/21 06/17/21 05:25 08:00 08:00 WBC 17.4 H RBC 3.62 L Hgb 9.1 L Hct 27.1 L MCV 75 L MCH 25 L MCHC RDW 22.8 H Plt Count Lymph % (Auto) [place] % (Auto) Lymph # (Auto) [place] # (Auto) Seg Neutrophils % Seg Neuts % (Manual) Lymphocytes % (Manual) Nucleated RBC % Seg Neutrophils # Seg Neutrophils # Man Lymphocytes # (Manual) Monocytes # (Manual) PT INR APTT Fibrinogen ABG pH POC ABG pCO2 POC ABG pO2 ABG pO2 ABG HCO3 ABG Base Excess ABG Hemoglobin ABG Oxyhemoglobin ABG Sodium ABG Potassium ABG Chloride ABG Glucose Carboxyhemoglobin Sodium Potassium 3.5 L Chloride Carbon Dioxide BUN 51 H Creatinine 4.2 H Glucose 182 H POC Glucose 170 H Lactic Acid Calcium 7.5 L Phosphorus Magnesium Total Bilirubin AST ALT Alkaline Phosphatase Lactate Dehydrogenase Total Protein Albumin Arterial Blood Glucose Arterial Blood Ionized Calcium Urine WBC (Auto) Urine Creatinine Complement C3 Complement C4 Crossmatch 06/17/21 06/17/21 06/17/21 11:24 17:13 23:59 WBC RBC Hgb Hct MCV MCH MCHC RDW Plt Count Lymph % (Auto) [place] % (Auto) Lymph # (Auto) [place] # (Auto) Seg Neutrophils % Seg Neuts % (Manual) Lymphocytes % (Manual) Nucleated RBC % Seg Neutrophils # Seg Neutrophils # Man Lymphocytes # (Manual) Monocytes # (Manual) PT INR APTT Fibrinogen ABG pH POC ABG pCO2 POC ABG pO2 ABG pO2 ABG HCO3 ABG Base Excess ABG Hemoglobin ABG Oxyhemoglobin ABG Sodium ABG Potassium ABG Chloride ABG Glucose Carboxyhemoglobin Sodium Potassium Chloride Carbon Dioxide BUN Creatinine Glucose POC Glucose 164 H 186 H 205 H Lactic Acid Calcium Phosphorus Magnesium Total Bilirubin AST ALT Alkaline Phosphatase Lactate Dehydrogenase Total Protein Albumin Arterial Blood Glucose Arterial Blood Ionized Calcium Urine WBC (Auto) Urine Creatinine Complement C3 Complement C4 Crossmatch 06/18/21 06/18/2121 04:00 04:00 04:00 WBC 22.8 H RBC 3.51 L Hgb 8.8 L Hct 26.7 L MCV 76 L MCH 25 L MCHC RDW 22.7 H Plt Count 136 L Lymph % (Auto) [place] % (Auto) Lymph # (Auto) [place] # (Auto) Seg Neutrophils % Seg Neuts % (Manual) Lymphocytes % (Manual) Nucleated RBC % Seg Neutrophils # Seg Neutrophils # Man Lymphocytes # (Manual) Monocytes # (Manual) PT 16.3 H INR 1.26 H APTT Fibrinogen ABG pH POC ABG pCO2 POC ABG pO2 ABG pO2 ABG HCO3 ABG Base Excess ABG Hemoglobin ABG Oxyhemoglobin ABG Sodium ABG Potassium ABG Chloride ABG Glucose Carboxyhemoglobin Sodium Potassium 3.5 L Chloride Carbon Dioxide BUN 79 H Creatinine 6.2 H Glucose 203 H POC Glucose Lactic Acid Calcium 7.9 L Phosphorus Magnesium Total Bilirubin AST ALT Alkaline Phosphatase Lactate Dehydrogenase Total Protein Albumin Arterial Blood Glucose Arterial Blood Ionized Calcium Urine WBC (Auto) Urine Creatinine Complement C3 Complement C4 Crossmatch 06/18/21 06/18/21 06/18/21 05:26 11:46 17:29 WBC RBC Hgb Hct MCV MCH MCHC RDW Plt Count Lymph % (Auto) [place] % (Auto) Lymph # (Auto) [place] # (Auto) Seg Neutrophils % Seg Neuts % (Manual) Lymphocytes % (Manual) Nucleated RBC % Seg Neutrophils # Seg Neutrophils # Man Lymphocytes # (Manual) Monocytes # (Manual) PT INR APTT Fibrinogen ABG pH POC ABG pCO2 POC ABG pO2 ABG pO2 ABG HCO3 ABG Base Excess ABG Hemoglobin ABG Oxyhemoglobin ABG Sodium ABG Potassium ABG Chloride ABG Glucose Carboxyhemoglobin Sodium Potassium Chloride Carbon Dioxide BUN Creatinine Glucose POC Glucose 187 H 197 H 174 H Lactic Acid Calcium Phosphorus Magnesium Total Bilirubin AST ALT Alkaline Phosphatase Lactate Dehydrogenase Total Protein Albumin Arterial Blood Glucose Arterial Blood Ionized Calcium Urine WBC (Auto) Urine Creatinine Complement C3 Complement C4 Crossmatch 06/18/21 06/19/21 06/19/21 23:15 05:00 05:06 WBC 36.4 H RBC Hgb 9.3 L Hct 29.0 L MCV 77 L MCH 25 L MCHC RDW 22.9 H Plt Count 116 L Lymph % (Auto) [place] % (Auto) Lymph # (Auto) [place] # (Auto) Seg Neutrophils % Seg Neuts % (Manual) Lymphocytes % (Manual) Nucleated RBC % Seg Neutrophils # Seg Neutrophils # Man Lymphocytes # (Manual) Monocytes # (Manual) PT INR APTT Fibrinogen ABG pH POC ABG pCO2 POC ABG pO2 ABG pO2 ABG HCO3 ABG Base Excess ABG Hemoglobin ABG Oxyhemoglobin ABG Sodium ABG Potassium ABG Chloride ABG Glucose Carboxyhemoglobin Sodium Potassium Chloride Carbon Dioxide BUN Creatinine Glucose POC Glucose 135 H 144 H Lactic Acid Calcium Phosphorus Magnesium Total Bilirubin AST ALT Alkaline Phosphatase Lactate Dehydrogenase Total Protein Albumin Arterial Blood Glucose Arterial Blood Ionized Calcium Urine WBC (Auto) Urine Creatinine Complement C3 Complement C4 Crossmatch 06/19/21 06/19/21 06/19/21 12:03 13:30 17:52 WBC RBC Hgb Hct MCV MCH MCHC RDW Plt Count Lymph % (Auto) [place] % (Auto) Lymph # (Auto) [place] # (Auto) Seg Neutrophils % Seg Neuts % (Manual) Lymphocytes % (Manual) Nucleated RBC % Seg Neutrophils # Seg Neutrophils # Man Lymphocytes # (Manual) Monocytes # (Manual) PT INR APTT Fibrinogen ABG pH POC ABG pCO2 POC ABG pO2 ABG pO2 ABG HCO3 ABG Base Excess ABG Hemoglobin ABG Oxyhemoglobin ABG Sodium ABG Potassium ABG Chloride ABG Glucose Carboxyhemoglobin Sodium Potassium Chloride Carbon Dioxide BUN Creatinine Glucose POC Glucose 138 H 138 H Lactic Acid 3.20 H* Calcium Phosphorus Magnesium Total Bilirubin AST ALT Alkaline Phosphatase Lactate Dehydrogenase Total Protein Albumin Arterial Blood Glucose Arterial Blood Ionized Calcium Urine WBC (Auto) Urine Creatinine Complement C3 Complement C4 Crossmatch 06/19/21 06/19/21 06/19/21 17:56 23:07 Unknown WBC RBC Hgb Hct MCV MCH MCHC RDW Plt Count Lymph % (Auto) [place] % (Auto) Lymph # (Auto) [place] # (Auto) Seg Neutrophils % Seg Neuts % (Manual) Lymphocytes % (Manual) Nucleated RBC % Seg Neutrophils # Seg Neutrophils # Man Lymphocytes # (Manual) Monocytes # (Manual) PT INR APTT Fibrinogen ABG pH POC ABG pCO2 POC ABG pO2 ABG pO2 ABG HCO3 ABG Base Excess ABG Hemoglobin ABG Oxyhemoglobin ABG Sodium ABG Potassium ABG Chloride ABG Glucose Carboxyhemoglobin Sodium Potassium 3.2 L Chloride Carbon Dioxide BUN 55 H Creatinine 4.0 H Glucose 152 H POC Glucose 154 H Lactic Acid 3.20 H* Calcium 7.9 L Phosphorus Magnesium 1.60 L Total Bilirubin 4.30 H AST 181 H ALT 149 H Alkaline Phosphatase 379 H Lactate Dehydrogenase Total Protein Albumin 2.4 L Arterial Blood Glucose Arterial Blood Ionized Calcium Urine WBC (Auto) Urine Creatinine Complement C3 Complement C4 Crossmatch 06/20/21 06/20/21 06/20/21 04:38 04:38 05:30 WBC 39.2 H RBC 3.62 L Hgb 9.0 L Hct 27.8 L MCV 77 L MCH 25 L MCHC RDW 23.3 H Plt Count 119 L Lymph % (Auto) [place] % (Auto) Lymph # (Auto) [place] # (Auto) Seg Neutrophils % Seg Neuts % (Manual) 94.0 H Lymphocytes % (Manual) 1.0 L Nucleated RBC % Seg Neutrophils # Seg Neutrophils # Man 36.8 H Lymphocytes # (Manual) 0.4 L Monocytes # (Manual) 2.0 H PT INR APTT Fibrinogen ABG pH POC ABG pCO2 POC ABG pO2 ABG pO2 ABG HCO3 ABG Base Excess ABG Hemoglobin ABG Oxyhemoglobin ABG Sodium ABG Potassium ABG Chloride ABG Glucose Carboxyhemoglobin Sodium Potassium Chloride Carbon Dioxide 21 L BUN 82 H Creatinine 5.8 H Glucose 161 H POC Glucose 149 H Lactic Acid Calcium 8.3 L Phosphorus 4.60 H Magnesium 2.40 H Total Bilirubin AST ALT Alkaline Phosphatase Lactate Dehydrogenase Total Protein Albumin Arterial Blood Glucose Arterial Blood Ionized Calcium Urine WBC (Auto) Urine Creatinine Complement C3 Complement C4 Crossmatch 06/20/21 06/20/21 06/20/21 06:15 08:30 12:14 WBC RBC Hgb Hct MCV MCH MCHC RDW Plt Count Lymph % (Auto) [place] % (Auto) Lymph # (Auto) [place] # (Auto) Seg Neutrophils % Seg Neuts % (Manual) Lymphocytes % (Manual) Nucleated RBC % Seg Neutrophils # Seg Neutrophils # Man Lymphocytes # (Manual) Monocytes # (Manual) PT INR APTT Fibrinogen ABG pH POC ABG pCO2 POC ABG pO2 ABG pO2 ABG HCO3 ABG Base Excess ABG Hemoglobin ABG Oxyhemoglobin ABG Sodium ABG Potassium ABG Chloride ABG Glucose Carboxyhemoglobin Sodium Potassium Chloride Carbon Dioxide BUN Creatinine Glucose POC Glucose 120 H Lactic Acid 3.20 H* 3.50 H* Calcium Phosphorus Magnesium Total Bilirubin AST ALT Alkaline Phosphatase Lactate Dehydrogenase Total Protein Albumin Arterial Blood Glucose Arterial Blood Ionized Calcium Urine WBC (Auto) Urine Creatinine Complement C3 Complement C4 Crossmatch Allied health notes reviewed: nursing
--- NOTE | 2021-06-20 14:27 | Progress Note ---
Assessment and Plan #Acute encephalopathy -Hypoxic versus metabolic - MRI brain on 06/14 showed hypoattenuation posterior cortical ? - MRI brain repeat is suggestive of diffuse edema with findings is consistent with anoxic brain injury -EEG is is with diffuse slowing no sign of seizure #Acute blood loss anemia-resolved #Hemorrhagic shock requiring pressors -resolved --Endoscopy 06/10/21: Clipping of presumed location of bleed by GI #Acute kidney injury -Unknown baseline, creatinine 6.2 today -Renal ultrasound negative -femoral vasc cath for access -HD x2; continue with HD MWF per Nephrology #PEA arrest -ROSC achieved #Anion gap metabolic acidosis #Lactic acidosis -Resolved -Likely secondary to PEA arrest and upper GI bleed #Coagulopathy -will continue to trend INR -give vitamin K as needed #Elevated liver enzymes -AST, ALT, T bili downtrending -likely secondary to shock -will continue to monitor #Acute hypoxic respiratory failure -intubated for airway protection, Pulmonary managing -unable to be extubated due to mental status -Plan for extubation as mental status will allow #Nutrition- continue TF @10cc/hr #CODE STATUS - Full Code PLAN 1- Repeat MRI brain is noted 2- EEG is noted 3- HD by nephrology 4- No sedation will follow over all prognosis is quarded to poor. Subjective Date of service: 06/20/21 Principal diagnosis: UGI bleed Interval history: Altered Mental Status History of present illness: 60 yo female with unknown medical history, who presented with PEA arrest, s/p acute GI bleed (Hgb 3.0) with initial hypoglycemia (BG 20) and hypotension. Per RN, at bedside, patient was noted with some "independent movement" of the extremities . No reported seizure she is off sedation MRI is noted on 06/14 -- consider repeat EEG is is remarkable for diffuse slowing no sign of seizure Past History Past Medical History: No medical history (Unable to obtain further medical history given patient's clinical status) Objective - Vital Sign Vital Signs - 12hr 06/20/21 06/20/21 06/20/21 03:00 03:48 04:00 Temperature 99.3 F Pulse Rate 121 H 81 Pulse Rate [ 107 H From Monitor] Respiratory 26 H 24 Rate Blood Pressure 128/87 O2 Sat by Pulse 96 92 Oximetry 06/20/21 06/20/21 06/20/21 04:01 05:00 06:00 Temperature Pulse Rate 122 H 116 H 113 H Pulse Rate [ From Monitor] Respiratory 25 H 28 H 27 H Rate Blood Pressure 119/89 133/97 123/95 O2 Sat by Pulse 95 97 96 Oximetry 06/20/21 06/20/21 06/20/21 07:00 08:00 08:42 Temperature 98.6 F 98.8 F Pulse Rate 113 H 113 H 113 H Pulse Rate [ 112 H From Monitor] Respiratory 27 H 22 Rate Blood Pressure 122/90 128/93 122/83 O2 Sat by Pulse 96 96 97 Oximetry 06/20/21 06/20/21 06/20/21 09:00 09:24 11:35 Temperature Pulse Rate 112 H 113 H Pulse Rate [ From Monitor] Respiratory 26 H Rate Blood Pressure 128/87 126/84 O2 Sat by Pulse 97 90 Oximetry 06/20/21 06/20/21 06/20/21 12:00 12:05 12:29 Temperature 99.2 F Pulse Rate 112 H 110 H Pulse Rate [ 112 H From Monitor] Respiratory 34 H Rate Blood Pressure 112/77 O2 Sat by Pulse 86 Oximetry 06/20/21 06/20/21 13:00 14:00 Temperature Pulse Rate 109 H 108 H Pulse Rate [ From Monitor] Respiratory 32 H 36 H Rate Blood Pressure 110/71 100/69 O2 Sat by Pulse 86 93 Oximetry - General Apperance Constitutional: comfortable - EENT EENT: PERRL, mucous membranes moist - Respiratory Respiratory: chest non-tender, lungs clear, rhonchi - Cardiovascular Cardiovascular: regular rate, normal S1, normal S2 Extremities: no peripheral edema bilat, no clubbing, cyanosis - Gastrointestinal Gastrointestinal: normoactive bowel sounds - Integumentary Integumentary: normal - Neurologic Cranial nerve examination: other (eyes wondering , no pupillary reaction , no corneal no gag had some spontaneous breathing ) Detailed motor examination: other (no movment to pain stimuli) - Laboratory Findings CBC and BMP: 06/20/21 04:38 06/20/21 04:38 Abnormal Lab Findings: Abnormal Labs 06/09/21 06/09/21 06/09/21 03:27 03:42 03:59 WBC RBC 1.57 L Hgb 3.0 L* Hct 11.8 L* MCV 75 L MCH 19 L MCHC 26 L RDW 21.7 H Plt Count 109 L Lymph % (Auto) 9.7 L Jenkins % (Auto) 8.5 H Lymph # (Auto) 0.9 L Jenkins # (Auto) Seg Neutrophils % 81.2 H Seg Neuts % (Manual) Lymphocytes % (Manual) Nucleated RBC % Seg Neutrophils # Seg Neutrophils # Man Lymphocytes # (Manual) Monocytes # (Manual) PT INR APTT Fibrinogen ABG pH POC ABG pCO2 POC ABG pO2 ABG pO2 ABG HCO3 ABG Base Excess ABG Hemoglobin ABG Oxyhemoglobin ABG Sodium ABG Potassium ABG Chloride ABG Glucose Carboxyhemoglobin Sodium Potassium Chloride 95.2 L Carbon Dioxide 8 L* BUN 18 H Creatinine Glucose 540 H* POC Glucose Lactic Acid 28.20 H* Calcium 11.5 H Phosphorus Magnesium Total Bilirubin AST 411 H ALT 106 H Alkaline Phosphatase Lactate Dehydrogenase Total Protein 4.9 L Albumin 2.4 L Arterial Blood Glucose Arterial Blood Ionized Calcium Urine WBC (Auto) Urine Creatinine Complement C3 Complement C4 Crossmatch 06/09/21 06/09/21 06/09/21 03:59 04:00 04:04 WBC RBC Hgb Hct MCV MCH MCHC RDW Plt Count Lymph % (Auto) Jenkins % (Auto) Lymph # (Auto) Jenkins # (Auto) Seg Neutrophils % Seg Neuts % (Manual) Lymphocytes % (Manual) Nucleated RBC % Seg Neutrophils # Seg Neutrophils # Man Lymphocytes # (Manual) Monocytes # (Manual) PT 34.3 H INR 3.36 H APTT 66.3 H* Fibrinogen ABG pH 6.845 L POC ABG pCO2 POC ABG pO2 116.6 H ABG pO2 ABG HCO3 ABG Base Excess ABG Hemoglobin 2.6 L ABG Oxyhemoglobin 90.6 L ABG Sodium ABG Potassium 3.0 L ABG Chloride ABG Glucose 334 H Carboxyhemoglobin 1.8 H Sodium Potassium Chloride Carbon Dioxide BUN Creatinine Glucose POC Glucose Lactic Acid Calcium Phosphorus Magnesium Total Bilirubin AST ALT Alkaline Phosphatase Lactate Dehydrogenase Total Protein Albumin Arterial Blood Glucose 334 H Arterial Blood Ionized Calcium Urine WBC (Auto) Urine Creatinine Complement C3 Complement C4 Crossmatch See Detail 06/09/21 06/09/21 06/09/21 05:16 11:42 11:44 WBC RBC Hgb Hct MCV MCH MCHC RDW Plt Count Lymph % (Auto) Jenkins % (Auto) Lymph # (Auto) Jenkins # (Auto) Seg Neutrophils % Seg Neuts % (Manual) Lymphocytes % (Manual) Nucleated RBC % Seg Neutrophils # Seg Neutrophils # Man Lymphocytes # (Manual) Monocytes # (Manual) PT INR APTT Fibrinogen ABG pH POC ABG pCO2 POC ABG pO2 ABG pO2 ABG HCO3 ABG Base Excess ABG Hemoglobin ABG Oxyhemoglobin ABG Sodium ABG Potassium ABG Chloride ABG Glucose Carboxyhemoglobin Sodium Potassium Chloride 109.5 H Carbon Dioxide 4 L* BUN 19 H Creatinine Glucose 158 H POC Glucose 191 H Lactic Acid 25.20 H* Calcium 7.8 L D Phosphorus Magnesium Total Bilirubin AST ALT Alkaline Phosphatase Lactate Dehydrogenase 2208 H Total Protein Albumin Arterial Blood Glucose Arterial Blood Ionized Calcium Urine WBC (Auto) Urine Creatinine Complement C3 Complement C4 Crossmatch 06/09/21 06/09/21 06/10/21 12:27 12:27 04:21 WBC 14.2 H RBC 3.58 L Hgb 8.9 L D Hct 29.9 L D MCV MCH 25 L MCHC RDW 22.0 H Plt Count 94 L Lymph % (Auto) Jenkins % (Auto) Lymph # (Auto) Jenkins # (Auto) Seg Neutrophils % Seg Neuts % (Manual) 87.0 H Lymphocytes % (Manual) 5.0 L Nucleated RBC % Seg Neutrophils # Seg Neutrophils # Man 12.4 H Lymphocytes # (Manual) 0.7 L Monocytes # (Manual) PT 36.0 H INR 3.58 H APTT 52.6 H Fibrinogen 83 L* ABG pH 7.323 L POC ABG pCO2 POC ABG pO2 ABG pO2 152.9 H ABG HCO3 12.6 L ABG Base Excess -12.0 L ABG Hemoglobin 9.2 L ABG Oxyhemoglobin ABG Sodium ABG Potassium ABG Chloride ABG Glucose Carboxyhemoglobin Sodium Potassium Chloride Carbon Dioxide BUN Creatinine Glucose POC Glucose Lactic Acid Calcium Phosphorus Magnesium Total Bilirubin AST ALT Alkaline Phosphatase Lactate Dehydrogenase Total Protein Albumin Arterial Blood Glucose Arterial Blood Ionized Calcium Urine WBC (Auto) Urine Creatinine Complement C3 Complement C4 Crossmatch 06/10/21 06/10/21 06/10/21 04:27 04:27 06:59 WBC 14.1 H RBC Hgb Hct MCV MCH 25 L MCHC RDW 20.0 H Plt Count 99 L Lymph % (Auto) 4.2 L Jenkins % (Auto) 8.6 H Lymph # (Auto) 0.6 L Jenkins # (Auto) 1.2 H Seg Neutrophils % 86.6 H Seg Neuts % (Manual) Lymphocytes % (Manual) Nucleated RBC % Seg Neutrophils # 12.2 H Seg Neutrophils # Man Lymphocytes # (Manual) Monocytes # (Manual) PT INR APTT Fibrinogen ABG pH POC ABG pCO2 POC ABG pO2 ABG pO2 ABG HCO3 ABG Base Excess ABG Hemoglobin ABG Oxyhemoglobin ABG Sodium ABG Potassium ABG Chloride ABG Glucose Carboxyhemoglobin Sodium 146 H Potassium 3.4 L Chloride 115.2 H Carbon Dioxide 14 L D BUN 30 H Creatinine 1.9 H D Glucose 122 H POC Glucose Lactic Acid 4.60 H* Calcium 7.4 L Phosphorus Magnesium Total Bilirubin 7.00 H AST 2708 H ALT 522 H Alkaline Phosphatase Lactate Dehydrogenase Total Protein 4.8 L Albumin 2.4 L Arterial Blood Glucose Arterial Blood Ionized Calcium Urine WBC (Auto) Urine Creatinine Complement C3 Complement C4 Crossmatch 06/10/21 06/10/21 06/10/21 06:59 08:23 08:47 WBC RBC Hgb Hct MCV MCH MCHC RDW Plt Count Lymph % (Auto) Jenkins % (Auto) Lymph # (Auto) Jenkins # (Auto) Seg Neutrophils % Seg Neuts % (Manual) Lymphocytes % (Manual) Nucleated RBC % Seg Neutrophils # Seg Neutrophils # Man Lymphocytes # (Manual) Monocytes # (Manual) PT 26.8 H INR 2.42 H APTT Fibrinogen ABG pH POC ABG pCO2 POC ABG pO2 ABG pO2 ABG HCO3 ABG Base Excess ABG Hemoglobin ABG Oxyhemoglobin ABG Sodium ABG Potassium ABG Chloride ABG Glucose Carboxyhemoglobin Sodium Potassium Chloride Carbon Dioxide BUN Creatinine Glucose POC Glucose 121 H Lactic Acid Calcium Phosphorus Magnesium Total Bilirubin AST ALT Alkaline Phosphatase Lactate Dehydrogenase Total Protein Albumin Arterial Blood Glucose Arterial Blood Ionized Calcium Urine WBC (Auto) 23.0 H Urine Creatinine Complement C3 Complement C4 Crossmatch 06/10/21 06/10/21 06/11/21 11:47 23:46 03:52 WBC RBC Hgb Hct MCV MCH MCHC RDW Plt Count Lymph % (Auto) Jenkins % (Auto) Lymph # (Auto) Jenkins # (Auto) Seg Neutrophils % Seg Neuts % (Manual) Lymphocytes % (Manual) Nucleated RBC % Seg Neutrophils # Seg Neutrophils # Man Lymphocytes # (Manual) Monocytes # (Manual) PT INR APTT Fibrinogen ABG pH POC ABG pCO2 POC ABG pO2 ABG pO2 148.9 H ABG HCO3 13.0 L ABG Base Excess -10.1 L ABG Hemoglobin 9.1 L ABG Oxyhemoglobin ABG Sodium ABG Potassium ABG Chloride ABG Glucose Carboxyhemoglobin Sodium Potassium Chloride Carbon Dioxide BUN Creatinine Glucose POC Glucose Lactic Acid 4.40 H* 3.30 H* Calcium Phosphorus Magnesium Total Bilirubin AST ALT Alkaline Phosphatase Lactate Dehydrogenase Total Protein Albumin Arterial Blood Glucose Arterial Blood Ionized Calcium Urine WBC (Auto) Urine Creatinine Complement C3 Complement C4 Crossmatch 06/11/21 06/11/21 06/11/21 05:05 10:38 10:38 WBC 12.6 H RBC 3.38 L Hgb 8.5 L Hct 26.3 L MCV 78 L MCH 25 L MCHC RDW 20.6 H Plt Count 97 L Lymph % (Auto) Jenkins % (Auto) Lymph # (Auto) Jenkins # (Auto) Seg Neutrophils % Seg Neuts % (Manual) Lymphocytes % (Manual) Nucleated RBC % Seg Neutrophils # Seg Neutrophils # Man Lymphocytes # (Manual) Monocytes # (Manual) PT 23.1 H INR 1.98 H APTT Fibrinogen ABG pH POC ABG pCO2 POC ABG pO2 ABG pO2 ABG HCO3 ABG Base Excess ABG Hemoglobin ABG Oxyhemoglobin ABG Sodium ABG Potassium ABG Chloride ABG Glucose Carboxyhemoglobin Sodium Potassium Chloride Carbon Dioxide BUN Creatinine Glucose POC Glucose Lactic Acid 2.40 H* Calcium Phosphorus Magnesium Total Bilirubin AST ALT Alkaline Phosphatase Lactate Dehydrogenase Total Protein Albumin Arterial Blood Glucose Arterial Blood Ionized Calcium Urine WBC (Auto) Urine Creatinine Complement C3 Complement C4 Crossmatch 06/11/21 06/11/21 06/11/21 10:38 10:38 12:15 WBC RBC Hgb Hct MCV MCH MCHC RDW Plt Count Lymph % (Auto) Jenkins % (Auto) Lymph # (Auto) Jenkins # (Auto) Seg Neutrophils % Seg Neuts % (Manual) Lymphocytes % (Manual) Nucleated RBC % Seg Neutrophils # Seg Neutrophils # Man Lymphocytes # (Manual) Monocytes # (Manual) PT INR APTT Fibrinogen ABG pH POC ABG pCO2 POC ABG pO2 ABG pO2 ABG HCO3 ABG Base Excess ABG Hemoglobin ABG Oxyhemoglobin ABG Sodium ABG Potassium ABG Chloride ABG Glucose Carboxyhemoglobin Sodium 147 H Potassium Chloride 118.1 H Carbon Dioxide 11 L BUN 53 H Creatinine 3.2 H D Glucose 104 H POC Glucose Lactic Acid 2.30 H* Calcium 5.9 L* D 5.9 L* Phosphorus 7.10 H Magnesium 1.60 L Total Bilirubin 4.20 H AST 2252 H ALT 540 H Alkaline Phosphatase Lactate Dehydrogenase Total Protein 4.4 L Albumin 2.2 L Arterial Blood Glucose Arterial Blood Ionized Calcium Urine WBC (Auto) Urine Creatinine Complement C3 Complement C4 Crossmatch 06/11/21 06/11/21 06/12/21 14:48 17:45 04:03 WBC 14.7 H RBC Hgb 8.9 L 9.4 L 9.2 L Hct 29.6 L 28.6 L 28.0 L MCV 77 L MCH 25 L MCHC RDW 21.2 H Plt Count 112 L Lymph % (Auto) 5.4 L Jenkins % (Auto) 8.6 H Lymph # (Auto) 0.8 L Jenkins # (Auto) 1.3 H Seg Neutrophils % 85.8 H Seg Neuts % (Manual) Lymphocytes % (Manual) Nucleated RBC % Seg Neutrophils # 12.6 H Seg Neutrophils # Man Lymphocytes # (Manual) Monocytes # (Manual) PT INR APTT Fibrinogen ABG pH POC ABG pCO2 POC ABG pO2 ABG pO2 ABG HCO3 ABG Base Excess ABG Hemoglobin ABG Oxyhemoglobin ABG Sodium ABG Potassium ABG Chloride ABG Glucose Carboxyhemoglobin Sodium Potassium Chloride Carbon Dioxide BUN Creatinine Glucose POC Glucose Lactic Acid Calcium Phosphorus Magnesium Total Bilirubin AST ALT Alkaline Phosphatase Lactate Dehydrogenase Total Protein Albumin Arterial Blood Glucose Arterial Blood Ionized Calcium Urine WBC (Auto) Urine Creatinine Complement C3 Complement C4 Crossmatch 06/12/21 06/12/21 06/12/21 04:03 04:03 04:50 WBC RBC Hgb Hct MCV MCH MCHC RDW Plt Count Lymph % (Auto) Jenkins % (Auto) Lymph # (Auto) Jenkins # (Auto) Seg Neutrophils % Seg Neuts % (Manual) Lymphocytes % (Manual) Nucleated RBC % Seg Neutrophils # Seg Neutrophils # Man Lymphocytes # (Manual) Monocytes # (Manual) PT 24.1 H INR 2.10 H APTT Fibrinogen ABG pH POC ABG pCO2 POC ABG pO2 ABG pO2 127.8 H ABG HCO3 13.2 L ABG Base Excess -11.0 L ABG Hemoglobin 8.6 L ABG Oxyhemoglobin ABG Sodium ABG Potassium ABG Chloride ABG Glucose Carboxyhemoglobin Sodium 148 H Potassium Chloride 117.8 H Carbon Dioxide 17 L BUN 72 H Creatinine 4.6 H Glucose POC Glucose Lactic Acid Calcium 6.1 L Phosphorus 6.70 H Magnesium Total Bilirubin 3.40 H AST 1494 H ALT 512 H Alkaline Phosphatase Lactate Dehydrogenase Total Protein 4.4 L Albumin 2.2 L Arterial Blood Glucose Arterial Blood Ionized Calcium Urine WBC (Auto) Urine Creatinine Complement C3 Complement C4 Crossmatch 06/12/21 06/12/21 06/13/21 20:15 20:15 00:16 WBC RBC Hgb Hct MCV MCH MCHC RDW Plt Count Lymph % (Auto) Jenkins % (Auto) Lymph # (Auto) Jenkins # (Auto) Seg Neutrophils % Seg Neuts % (Manual) Lymphocytes % (Manual) Nucleated RBC % Seg Neutrophils # Seg Neutrophils # Man Lymphocytes # (Manual) Monocytes # (Manual) PT INR APTT Fibrinogen ABG pH POC ABG pCO2 POC ABG pO2 ABG pO2 ABG HCO3 ABG Base Excess ABG Hemoglobin ABG Oxyhemoglobin ABG Sodium ABG Potassium ABG Chloride ABG Glucose Carboxyhemoglobin Sodium Potassium Chloride Carbon Dioxide BUN Creatinine Glucose POC Glucose Lactic Acid Calcium Phosphorus Magnesium Total Bilirubin AST ALT Alkaline Phosphatase Lactate Dehydrogenase Total Protein Albumin Arterial Blood Glucose Arterial Blood Ionized Calcium Urine WBC (Auto) Urine Creatinine 28.0 H Complement C3 40 L Complement C4 4 L Crossmatch 06/13/21 06/13/21 06/13/21 04:00 08:11 08:11 WBC RBC 3.51 L Hgb 8.9 L Hct 26.2 L MCV 75 L MCH 25 L MCHC RDW 21.3 H Plt Count 96 L Lymph % (Auto) Jenkins % (Auto) Lymph # (Auto) Jenkins # (Auto) Seg Neutrophils % Seg Neuts % (Manual) Lymphocytes % (Manual) Nucleated RBC % Seg Neutrophils # Seg Neutrophils # Man Lymphocytes # (Manual) Monocytes # (Manual) PT INR APTT Fibrinogen ABG pH POC ABG pCO2 22.8 L POC ABG pO2 115.7 H ABG pO2 ABG HCO3 ABG Base Excess ABG Hemoglobin 7.2 L ABG Oxyhemoglobin ABG Sodium ABG Potassium ABG Chloride 119.0 H ABG Glucose 102 H Carboxyhemoglobin Sodium 147 H Potassium Chloride 117.2 H Carbon Dioxide 15 L BUN 96 H Creatinine 6.1 H Glucose 107 H POC Glucose Lactic Acid Calcium 6.2 L Phosphorus Magnesium Total Bilirubin AST ALT Alkaline Phosphatase Lactate Dehydrogenase Total Protein Albumin Arterial Blood Glucose 102 H Arterial Blood Ionized Calcium Urine WBC (Auto) Urine Creatinine Complement C3 Complement C4 Crossmatch 06/13/21 06/13/21 06/14/21 12:54 14:17 04:35 WBC RBC Hgb Hct MCV MCH MCHC RDW Plt Count Lymph % (Auto) Jenkins % (Auto) Lymph # (Auto) Jenkins # (Auto) Seg Neutrophils % Seg Neuts % (Manual) Lymphocytes % (Manual) Nucleated RBC % Seg Neutrophils # Seg Neutrophils # Man Lymphocytes # (Manual) Monocytes # (Manual) PT 18.2 H INR 1.44 H APTT Fibrinogen ABG pH 7.507 H POC ABG pCO2 15.9 L POC ABG pO2 121.2 H ABG pO2 ABG HCO3 ABG Base Excess ABG Hemoglobin 6.3 L ABG Oxyhemoglobin ABG Sodium ABG Potassium ABG Chloride 119.0 H ABG Glucose Carboxyhemoglobin Sodium Potassium Chloride Carbon Dioxide BUN Creatinine Glucose POC Glucose 107 H Lactic Acid Calcium Phosphorus Magnesium Total Bilirubin AST ALT Alkaline Phosphatase Lactate Dehydrogenase Total Protein Albumin Arterial Blood Glucose Arterial Blood Ionized Calcium 3.5 L Urine WBC (Auto) Urine Creatinine Complement C3 Complement C4 Crossmatch 06/14/21 06/14/21 06/14/21 08:45 08:45 08:45 WBC RBC Hgb 9.3 L Hct 27.6 L MCV 75 L MCH 25 L MCHC RDW 21.9 H Plt Count 137 L Lymph % (Auto) Jenkins % (Auto) Lymph # (Auto) Jenkins # (Auto) Seg Neutrophils % Seg Neuts % (Manual) Lymphocytes % (Manual) Nucleated RBC % Seg Neutrophils # Seg Neutrophils # Man Lymphocytes # (Manual) Monocytes # (Manual) PT 16.8 H INR 1.30 H APTT Fibrinogen ABG pH POC ABG pCO2 POC ABG pO2 ABG pO2 ABG HCO3 ABG Base Excess ABG Hemoglobin ABG Oxyhemoglobin ABG Sodium ABG Potassium ABG Chloride ABG Glucose Carboxyhemoglobin Sodium 147 H Potassium Chloride 115.5 H Carbon Dioxide 15 L BUN 107 H Creatinine 6.8 H Glucose POC Glucose Lactic Acid Calcium 6.7 L Phosphorus Magnesium Total Bilirubin 5.00 H AST 578 H ALT 298 H Alkaline Phosphatase Lactate Dehydrogenase Total Protein 5.6 L D Albumin 2.3 L Arterial Blood Glucose Arterial Blood Ionized Calcium Urine WBC (Auto) Urine Creatinine Complement C3 Complement C4 Crossmatch 06/14/21 06/15/21 06/15/21 23:31 03:39 04:30 WBC 11.2 H RBC 3.05 L Hgb 7.5 L Hct 23.3 L MCV 76 L MCH 25 L MCHC RDW 23.1 H Plt Count 109 L Lymph % (Auto) Jenkins % (Auto) Lymph # (Auto) Jenkins # (Auto) Seg Neutrophils % Seg Neuts % (Manual) 90.0 H Lymphocytes % (Manual) 2.0 L Nucleated RBC % 1.0 H Seg Neutrophils # Seg Neutrophils # Man 10.1 H Lymphocytes # (Manual) 0.2 L Monocytes # (Manual) PT INR APTT Fibrinogen ABG pH POC ABG pCO2 21.2 L POC ABG pO2 146.6 H ABG pO2 ABG HCO3 ABG Base Excess ABG Hemoglobin 8.0 L ABG Oxyhemoglobin ABG Sodium 145.2 H ABG Potassium ABG Chloride 120.0 H ABG Glucose 126 H Carboxyhemoglobin Sodium Potassium Chloride Carbon Dioxide BUN Creatinine Glucose POC Glucose 108 H Lactic Acid Calcium Phosphorus Magnesium Total Bilirubin AST ALT Alkaline Phosphatase Lactate Dehydrogenase Total Protein Albumin Arterial Blood Glucose 126 H Arterial Blood Ionized Calcium Urine WBC (Auto) Urine Creatinine Complement C3 Complement C4 Crossmatch 06/15/21 06/15/21 06/15/21 04:30 04:30 05:14 WBC RBC Hgb Hct MCV MCH MCHC RDW Plt Count Lymph % (Auto) Jenkins % (Auto) Lymph # (Auto) Jenkins # (Auto) Seg Neutrophils % Seg Neuts % (Manual) Lymphocytes % (Manual) Nucleated RBC % Seg Neutrophils # Seg Neutrophils # Man Lymphocytes # (Manual) Monocytes # (Manual) PT 18.9 H INR 1.53 H APTT Fibrinogen ABG pH POC ABG pCO2 POC ABG pO2 ABG pO2 ABG HCO3 ABG Base Excess ABG Hemoglobin ABG Oxyhemoglobin ABG Sodium ABG Potassium ABG Chloride ABG Glucose Carboxyhemoglobin Sodium 147 H Potassium Chloride 116.5 H Carbon Dioxide 16 L BUN 121 H Creatinine 8.6 H Glucose 147 H POC Glucose 125 H Lactic Acid Calcium 6.5 L Phosphorus Magnesium Total Bilirubin 5.10 H AST 349 H ALT 214 H Alkaline Phosphatase Lactate Dehydrogenase Total Protein 4.9 L Albumin 2.0 L Arterial Blood Glucose Arterial Blood Ionized Calcium Urine WBC (Auto) Urine Creatinine Complement C3 Complement C4 Crossmatch 06/15/21 06/15/21 06/15/21 11:38 17:07 23:24 WBC RBC Hgb Hct MCV MCH MCHC RDW Plt Count Lymph % (Auto) Jenkins % (Auto) Lymph # (Auto) Jenkins # (Auto) Seg Neutrophils % Seg Neuts % (Manual) Lymphocytes % (Manual) Nucleated RBC % Seg Neutrophils # Seg Neutrophils # Man Lymphocytes # (Manual) Monocytes # (Manual) PT INR APTT Fibrinogen ABG pH POC ABG pCO2 POC ABG pO2 ABG pO2 ABG HCO3 ABG Base Excess ABG Hemoglobin ABG Oxyhemoglobin ABG Sodium ABG Potassium ABG Chloride ABG Glucose Carboxyhemoglobin Sodium Potassium Chloride Carbon Dioxide BUN Creatinine Glucose POC Glucose 160 H 161 H 166 H Lactic Acid Calcium Phosphorus Magnesium Total Bilirubin AST ALT Alkaline Phosphatase Lactate Dehydrogenase Total Protein Albumin Arterial Blood Glucose Arterial Blood Ionized Calcium Urine WBC (Auto) Urine Creatinine Complement C3 Complement C4 Crossmatch 06/16/21 06/16/21 06/16/21 05:47 06:15 06:15 WBC 12.2 H RBC 3.42 L Hgb 8.6 L Hct 25.7 L MCV 75 L MCH 25 L MCHC RDW 22.6 H Plt Count 121 L Lymph % (Auto) Jenkins % (Auto) Lymph # (Auto) Jenkins # (Auto) Seg Neutrophils % Seg Neuts % (Manual) Lymphocytes % (Manual) Nucleated RBC % Seg Neutrophils # Seg Neutrophils # Man Lymphocytes # (Manual) Monocytes # (Manual) PT INR APTT Fibrinogen ABG pH POC ABG pCO2 POC ABG pO2 ABG pO2 ABG HCO3 ABG Base Excess ABG Hemoglobin ABG Oxyhemoglobin ABG Sodium ABG Potassium ABG Chloride ABG Glucose Carboxyhemoglobin Sodium 147 H Potassium Chloride 108.3 H Carbon Dioxide 15 L BUN 82 H Creatinine 6.6 H Glucose 178 H POC Glucose 136 H Lactic Acid Calcium 7.4 L Phosphorus Magnesium Total Bilirubin 5.30 H AST 306 H ALT 201 H Alkaline Phosphatase 195 H Lactate Dehydrogenase Total Protein 5.9 L D Albumin 2.4 L Arterial Blood Glucose Arterial Blood Ionized Calcium Urine WBC (Auto) Urine Creatinine Complement C3 Complement C4 Crossmatch 06/16/21 06/16/21 06/16/21 11:41 18:23 23:40 WBC RBC Hgb Hct MCV MCH MCHC RDW Plt Count Lymph % (Auto) Jenkins % (Auto) Lymph # (Auto) Jenkins # (Auto) Seg Neutrophils % Seg Neuts % (Manual) Lymphocytes % (Manual) Nucleated RBC % Seg Neutrophils # Seg Neutrophils # Man Lymphocytes # (Manual) Monocytes # (Manual) PT INR APTT Fibrinogen ABG pH POC ABG pCO2 POC ABG pO2 ABG pO2 ABG HCO3 ABG Base Excess ABG Hemoglobin ABG Oxyhemoglobin ABG Sodium ABG Potassium ABG Chloride ABG Glucose Carboxyhemoglobin Sodium Potassium Chloride Carbon Dioxide BUN Creatinine Glucose POC Glucose 169 H 172 H 161 H Lactic Acid Calcium Phosphorus Magnesium Total Bilirubin AST ALT Alkaline Phosphatase Lactate Dehydrogenase Total Protein Albumin Arterial Blood Glucose Arterial Blood Ionized Calcium Urine WBC (Auto) Urine Creatinine Complement C3 Complement C4 Crossmatch 06/17/21 06/17/21 06/17/21 05:25 08:00 08:00 WBC 17.4 H RBC 3.62 L Hgb 9.1 L Hct 27.1 L MCV 75 L MCH 25 L MCHC RDW 22.8 H Plt Count Lymph % (Auto) Jenkins % (Auto) Lymph # (Auto) Jenkins # (Auto) Seg Neutrophils % Seg Neuts % (Manual) Lymphocytes % (Manual) Nucleated RBC % Seg Neutrophils # Seg Neutrophils # Man Lymphocytes # (Manual) Monocytes # (Manual) PT INR APTT Fibrinogen ABG pH POC ABG pCO2 POC ABG pO2 ABG pO2 ABG HCO3 ABG Base Excess ABG Hemoglobin ABG Oxyhemoglobin ABG Sodium ABG Potassium ABG Chloride ABG Glucose Carboxyhemoglobin Sodium Potassium 3.5 L Chloride Carbon Dioxide BUN 51 H Creatinine 4.2 H Glucose 182 H POC Glucose 170 H Lactic Acid Calcium 7.5 L Phosphorus Magnesium Total Bilirubin AST ALT Alkaline Phosphatase Lactate Dehydrogenase Total Protein Albumin Arterial Blood Glucose Arterial Blood Ionized Calcium Urine WBC (Auto) Urine Creatinine Complement C3 Complement C4 Crossmatch 06/17/21 06/17/21 06/17/21 11:24 17:13 23:59 WBC RBC Hgb Hct MCV MCH MCHC RDW Plt Count Lymph % (Auto) Jenkins % (Auto) Lymph # (Auto) Jenkins # (Auto) Seg Neutrophils % Seg Neuts % (Manual) Lymphocytes % (Manual) Nucleated RBC % Seg Neutrophils # Seg Neutrophils # Man Lymphocytes # (Manual) Monocytes # (Manual) PT INR APTT Fibrinogen ABG pH POC ABG pCO2 POC ABG pO2 ABG pO2 ABG HCO3 ABG Base Excess ABG Hemoglobin ABG Oxyhemoglobin ABG Sodium ABG Potassium ABG Chloride ABG Glucose Carboxyhemoglobin Sodium Potassium Chloride Carbon Dioxide BUN Creatinine Glucose POC Glucose 164 H 186 H 205 H Lactic Acid Calcium Phosphorus Magnesium Total Bilirubin AST ALT Alkaline Phosphatase Lactate Dehydrogenase Total Protein Albumin Arterial Blood Glucose Arterial Blood Ionized Calcium Urine WBC (Auto) Urine Creatinine Complement C3 Complement C4 Crossmatch 06/18/21 06/18/21 06/18/21 04:00 04:00 04:00 WBC 22.8 H RBC 3.51 L Hgb 8.8 L Hct 26.7 L MCV 76 L MCH 25 L MCHC RDW 22.7 H Plt Count 136 L Lymph % (Auto) Jenkins % (Auto) Lymph # (Auto) Jenkins # (Auto) Seg Neutrophils % Seg Neuts % (Manual) Lymphocytes % (Manual) Nucleated RBC % Seg Neutrophils # Seg Neutrophils # Man Lymphocytes # (Manual) Monocytes # (Manual) PT 16.3 H INR 1.26 H APTT Fibrinogen ABG pH POC ABG pCO2 POC ABG pO2 ABG pO2 ABG HCO3 ABG Base Excess ABG Hemoglobin ABG Oxyhemoglobin ABG Sodium ABG Potassium ABG Chloride ABG Glucose Carboxyhemoglobin Sodium Potassium 3.5 L Chloride Carbon Dioxide BUN 79 H Creatinine 6.2 H Glucose 203 H POC Glucose Lactic Acid Calcium 7.9 L Phosphorus Magnesium Total Bilirubin AST ALT Alkaline Phosphatase Lactate Dehydrogenase Total Protein Albumin Arterial Blood Glucose Arterial Blood Ionized Calcium Urine WBC (Auto) Urine Creatinine Complement C3 Complement C4 Crossmatch 06/18/21 06/18/21 06/18/21 05:26 11:46 17:29 WBC RBC Hgb Hct MCV MCH MCHC RDW Plt Count Lymph % (Auto) Jenkins % (Auto) Lymph # (Auto) Jenkins # (Auto) Seg Neutrophils % Seg Neuts % (Manual) Lymphocytes % (Manual) Nucleated RBC % Seg Neutrophils # Seg Neutrophils # Man Lymphocytes # (Manual) Monocytes # (Manual) PT INR APTT Fibrinogen ABG pH POC ABG pCO2 POC ABG pO2 ABG pO2 ABG HCO3 ABG Base Excess ABG Hemoglobin ABG Oxyhemoglobin ABG Sodium ABG Potassium ABG Chloride ABG Glucose Carboxyhemoglobin Sodium Potassium Chloride Carbon Dioxide BUN Creatinine Glucose POC Glucose 187 H 197 H 174 H Lactic Acid Calcium Phosphorus Magnesium Total Bilirubin AST ALT Alkaline Phosphatase Lactate Dehydrogenase Total Protein Albumin Arterial Blood Glucose Arterial Blood Ionized Calcium Urine WBC (Auto) Urine Creatinine Complement C3 Complement C4 Crossmatch 06/18/21 06/19/21 06/19/21 23:15 05:00 05:06 WBC 36.4 H RBC Hgb 9.3 L Hct 29.0 L MCV 77 L MCH 25 L MCHC RDW 22.9 H Plt Count 116 L Lymph % (Auto) Jenkins % (Auto) Lymph # (Auto) Jenkins # (Auto) Seg Neutrophils % Seg Neuts % (Manual) Lymphocytes % (Manual) Nucleated RBC % Seg Neutrophils # Seg Neutrophils # Man Lymphocytes # (Manual) Monocytes # (Manual) PT INR APTT Fibrinogen ABG pH POC ABG pCO2 POC ABG pO2 ABG pO2 ABG HCO3 ABG Base Excess ABG Hemoglobin ABG Oxyhemoglobin ABG Sodium ABG Potassium ABG Chloride ABG Glucose Carboxyhemoglobin Sodium Potassium Chloride Carbon Dioxide BUN Creatinine Glucose POC Glucose 135 H 144 H Lactic Acid Calcium Phosphorus Magnesium Total Bilirubin AST ALT Alkaline Phosphatase Lactate Dehydrogenase Total Protein Albumin Arterial Blood Glucose Arterial Blood Ionized Calcium Urine WBC (Auto) Urine Creatinine Complement C3 Complement C4 Crossmatch 06/19/21 06/19/21 06/19/21 12:03 13:30 17:52 WBC RBC Hgb Hct MCV MCH MCHC RDW Plt Count Lymph % (Auto) Jenkins % (Auto) Lymph # (Auto) Jenkins # (Auto) Seg Neutrophils % Seg Neuts % (Manual) Lymphocytes % (Manual) Nucleated RBC % Seg Neutrophils # Seg Neutrophils # Man Lymphocytes # (Manual) Monocytes # (Manual) PT INR APTT Fibrinogen ABG pH POC ABG pCO2 POC ABG pO2 ABG pO2 ABG HCO3 ABG Base Excess ABG Hemoglobin ABG Oxyhemoglobin ABG Sodium ABG Potassium ABG Chloride ABG Glucose Carboxyhemoglobin Sodium Potassium Chloride Carbon Dioxide BUN Creatinine Glucose POC Glucose 138 H 138 H Lactic Acid 3.20 H* Calcium Phosphorus Magnesium Total Bilirubin AST ALT Alkaline Phosphatase Lactate Dehydrogenase Total Protein Albumin Arterial Blood Glucose Arterial Blood Ionized Calcium Urine WBC (Auto) Urine Creatinine Complement C3 Complement C4 Crossmatch 06/19/21 06/19/21 06/19/21 17:56 23:07 Unknown WBC RBC Hgb Hct MCV MCH MCHC RDW Plt Count Lymph % (Auto) Jenkins % (Auto) Lymph # (Auto) Jenkins # (Auto) Seg Neutrophils % Seg Neuts % (Manual) Lymphocytes % (Manual) Nucleated RBC % Seg Neutrophils # Seg Neutrophils # Man Lymphocytes # (Manual) Monocytes # (Manual) PT INR APTT Fibrinogen ABG pH POC ABG pCO2 POC ABG pO2 ABG pO2 ABG HCO3 ABG Base Excess ABG Hemoglobin ABG Oxyhemoglobin ABG Sodium ABG Potassium ABG Chloride ABG Glucose Carboxyhemoglobin Sodium Potassium 3.2 L Chloride Carbon Dioxide BUN 55 H Creatinine 4.0 H Glucose 152 H POC Glucose 154 H Lactic Acid 3.20 H* Calcium 7.9 L Phosphorus Magnesium 1.60 L Total Bilirubin 4.30 H AST 181 H ALT 149 H Alkaline Phosphatase 379 H Lactate Dehydrogenase Total Protein Albumin 2.4 L Arterial Blood Glucose Arterial Blood Ionized Calcium Urine WBC (Auto) Urine Creatinine Complement C3 Complement C4 Crossmatch 06/20/21 06/20/21 06/20/21 04:38 04:38 05:30 WBC 39.2 H RBC 3.62 L Hgb 9.0 L Hct 27.8 L MCV 77 L MCH 25 L MCHC RDW 23.3 H Plt Count 119 L Lymph % (Auto) Jenkins % (Auto) Lymph # (Auto) Jenkins # (Auto) Seg Neutrophils % Seg Neuts % (Manual) 94.0 H Lymphocytes % (Manual) 1.0 L Nucleated RBC % Seg Neutrophils # Seg Neutrophils # Man 36.8 H Lymphocytes # (Manual) 0.4 L Monocytes # (Manual) 2.0 H PT INR APTT Fibrinogen ABG pH POC ABG pCO2 POC ABG pO2 ABG pO2 ABG HCO3 ABG Base Excess ABG Hemoglobin ABG Oxyhemoglobin ABG Sodium ABG Potassium ABG Chloride ABG Glucose Carboxyhemoglobin Sodium Potassium Chloride Carbon Dioxide 21 L BUN 82 H Creatinine 5.8 H Glucose 161 H POC Glucose 149 H Lactic Acid Calcium 8.3 L Phosphorus 4.60 H Magnesium 2.40 H Total Bilirubin AST ALT Alkaline Phosphatase Lactate Dehydrogenase Total Protein Albumin Arterial Blood Glucose Arterial Blood Ionized Calcium Urine WBC (Auto) Urine Creatinine Complement C3 Complement C4 Crossmatch 06/20/21 06/20/21 06/20/21 06:15 08:30 12:14 WBC RBC Hgb Hct MCV MCH MCHC RDW Plt Count Lymph % (Auto) Jenkins % (Auto) Lymph # (Auto) Jenkins # (Auto) Seg Neutrophils % Seg Neuts % (Manual) Lymphocytes % (Manual) Nucleated RBC % Seg Neutrophils # Seg Neutrophils # Man Lymphocytes # (Manual) Monocytes # (Manual) PT INR APTT Fibrinogen ABG pH POC ABG pCO2 POC ABG pO2 ABG pO2 ABG HCO3 ABG Base Excess ABG Hemoglobin ABG Oxyhemoglobin ABG Sodium ABG Potassium ABG Chloride ABG Glucose Carboxyhemoglobin Sodium Potassium Chloride Carbon Dioxide BUN Creatinine Glucose POC Glucose 120 H Lactic Acid 3.20 H* 3.50 H* Calcium Phosphorus Magnesium Total Bilirubin AST ALT Alkaline Phosphatase Lactate Dehydrogenase Total Protein Albumin Arterial Blood Glucose Arterial Blood Ionized Calcium Urine WBC (Auto) Urine Creatinine Complement C3 Complement C4 Crossmatch
--- NOTE | 2021-06-20 15:40 | Progress Note ---
<LVRUSS DelphineGee - Last Filed: 06/20/21 16:02> Assessment and Plan Assessment and plan: This is a 60-year-old female with no known medical history admitted s/p cardiac arrest, acute blood loss anemia 2/2 upper GI bleed, hemorrhagic shock requiring pressors, transaminitis, acute effects respiratory failure, lactic acidosis, PEG Neuro: Hypoxic anoxic encephalopathy vs. acute metabolic encephalopathy, ? No nconvulsive seizure -CT head completed-> showed ill-defined differentiation of joseph and white matter which may reflect global hypoxic ischemic injury -MRI B completed-> subtle cortical signal abnormalities in the posterior cerebral hemispheres -Repeat MRI B completed->findings suggestive of JASMEET -FM scheduled for tomorrow -EEG shows diffuse slowing, no seizure -No sedation, PERRL, decorticate positioning noted to painful stimuli Cardio: s/p cardiac arrest, HTN -nifedipine -Monitor BP per protocol -S/p vasopressin for map goal greater than 65 Respiratory: Acute hypoxic respiratory failure -Intubated 06/09 with 7.5 oett 22 @lips -CCM consulted, appreciate recommendations -VAP bundle -Serial ABGs and CXR -AM vent settings: AC tidal volume 400, rate 14, PEEP 6 FiO2 40% -See RT notes for titration -SPO2 noted to be in the 80s, increase in FiO2 GI: Upper GI bleed, transminitis -s/p EGD on 06/10 with clip -H2 antagonist -Ntr consult for TF: Nepro @ 33 ml/hr, FWF 30 q 4 hrs -24 hour fluid balance: + 418 ml -GI consulted, appreciate recommendations : Acute kidney injury likely 2/2 to acute tubular necrosis or possible underlying glomerulonephritis requiring hemodialysis, anion gap metabolic acidosis -Nephrology consulted, appreciate recommendations -HD per nephrology: MWF schedule -s/p pulse dose steriods -Renal ultrasound completed->no acute findings -Trend BMP Endo: Hyperglycemia -Likely due to patient receiving high-dose steroids -SSI, long acting insulin-> titrate as needed -Accu-Cheks every 6 ID: Leukocytosis, s/p lactic acidosis -likely 2/2 to pulse dose steriods -06/09 BC with coag negative staphyloccus, 06/12 BC x2 NGTD/ UC no growth after 48 hours -S/p Rocephin, vancomycin -monitor WBC and fever curve -C. difficile negative Heme: Hemorrhagic shock secondary to upper GI bleed, acute blood loss anemia, coagulopathy -S/p 5 units PRBC -S/p endoscopy 06/10 with treatment of presumed location of bleed -Trend CBC and INR -Prophylactic heparin -SCDs to bilateral shins while in bed -Transfuse for hemoglobin less than 7 The high probability of a clinically significant, sudden or life threatening deterioration of the [multi] system(s) required my full and direct attention, intervention and personal management. The aggregate critical care time was [60] minutes. This time is in addition to time spent performing reported procedures but includes the following: [x] Data Review and interpretation [x] Patient assessment and monitoring of vital signs [x] Documentation [x] Medication orders and management Disposition Plan: icu Total Time Spent with Patient (Minutes): 60 History Interval history: This is a 60-year-old female with unknown medical history who was found down and unconscious by EMS on 06/09 who initiated CPR in transit and achieved ROSC. Upon arrival to the emergency department patient had hemoglobin of 3 and gastric lavage revealed coffee-ground emesis which later progressed to dark red blood. Patient was intubated in the emergency department and was found to be hypoglycemic which was treated with dextrose. Patient was also hypotensive and received 500 mL bolus, 3 units of PRBC and Levophed was initiated and titrated up to 20. Patient was admitted to the hospital service s/p cardiac arrest, acute hypoxic respiratory failure, severe anemia 2/2 to upper GI bleed with consults to cardiology, nephrology, gastroenterology and [facility]. 06/09: Patient was pending possible transfer to outside hospital for HLOC; however, no hospital had available ICU beds. The decision was made to have the patient undergo upper endoscopy on 06/10/2021. The patient continue to be monitored closely in the ED. 06/10: EGD with clip 06/11: Discontinue ceftriaxone 1 g every 24 hours and vancomycin 1 g every 12 hours; negative growth on blood culture x48 hours. Discontinue Levophed and vasopressin. 06/12: neprohlogy consult 06/16/2021: GI signed off. Will continue protonix BID. Stable hemoglobin. Patient tolerated HD yesterday and will have another session today. 06/17/2021: Increased white blood cell count. Afebrile. Second session of HD yesterday, patient tolerated well. Plan for HD MWF. Updates discussed with family via iPad. 06/18: HD today, neurology contacted for update. added norvasc today for persistent hypertension. Started on low dose SSI. MRI B and EEG pending 06/19/21- Leukocytosis worse today, patient remains afebrile, patient with increased diarrhea. Patient is tachycardic and hypertensive. D/W [facility] plan for gentle IVF, NS at 75ml/hr for 1L, will check lactic and Cdiff. Switch norvac to Nifedipine Qday. Patient H&H remains stable, no s/s of any active bleeding, Hep SubQ added for VTE proph. Pending neuro recommendation, EEG and MRI brain pending. 06/20: Patient had MRI brain which suggested of diffuse edema with findings consistent of anoxic brain injury. FiO2 increased due to desaturation. Family meeting scheduled for tomorrow. cdiff negative. Remove CVL and alfonso Hospitalist Physical - Constitutional Vitals: Temp Pulse Resp BP Pulse Ox 99.2 F 106 H 37 H 100/70 89 06/20/21 12:29 06/20/21 15:00 06/20/21 15:00 06/20/21 15:00 06/20/21 15:00 General appearance: Present: no acute distress - EENT Eyes: Present: PERRL, EOM intact ENT: dentition normal - Neck Neck: Present: normal ROM - Respiratory Respiratory effort: normal Respiratory: bilateral: diminished - Cardiovascular Rhythm: regular Heart Sounds: Present: S1 & S2. Absent: systolic murmur, diastolic murmur - Extremities Extremities: no ischemia, pulses intact, pulses symmetrical, No edema, normal temperature, normal color Peripheral Pulses: within normal limits - Abdominal General gastrointestinal: soft, non-tender, non-distended, normal bowel sounds - Integumentary Integumentary: Present: warm, dry - Psychiatric Psychiatric: other (not sedated) - Neurologic Neurologic: other (decortication noted to painful stimuli, intact cough/gag, PERRL) - Allied Health Allied health notes reviewed: nursing, RT, social work HEART Score - HEART Score EKG: Normal Age: 45-65 Troponin: Troponin T < 0.010 ng/mL (0.00-0.029) 06/09/21 03:27 - Critical Actions Critical Actions: 4-6 pts:12-16.6% risk of adverse cardiac event. Should be admitted Results - Labs CBC & Chem 7: 06/20/21 04:38 06/20/21 04:38 Labs: Laboratory Last Values WBC 39.2 K/mm3 (4.5-11.0) H 06/20/21 04:38 RBC 3.62 M/mm3 (3.65-5.03) L 06/20/21 04:38 Hgb 9.0 gm/dl (10.1-14.3) L 06/20/21 04:38 Hct 27.8 % (30.3-42.9) L 06/20/21 04:38 MCV 77 fl (79-97) L 06/20/21 04:38 MCH 25 pg (28-32) L 06/20/21 04:38 MCHC 32 % (30-34) 06/20/21 04:38 RDW 23.3 % (13.2-15.2) H 06/20/21 04:38 Plt Count 119 K/mm3 (140-440) L 06/20/21 04:38 Lymph % (Auto) 5.4 % (13.4-35.0) L 06/12/21 04:03 [place] % (Auto) Technical Publications Writer 06/15/21 04:30 Eos % (Auto) Technical Publications Writer 06/15/21 04:30 Baso % (Auto) 0.1 % (0.0-1.8) 06/12/21 04:03 Lymph # (Auto) 0.8 K/mm3 (1.2-5.4) L 06/12/21 04:03 [place] # (Auto) Technical Publications Writer 06/15/21 04:30 Eos # (Auto) Technical Publications Writer 06/15/21 04:30 Baso # (Auto) Technical Publications Writer 06/15/21 04:30 Add Manual Diff Complete 06/20/21 04:38 Total Counted 100 06/20/21 04:38 Seg Neutrophils % Technical Publications Writer 06/20/21 04:38 Seg Neuts % (Manual) 94.0 % (40.0-70.0) H 06/20/21 04:38 Band Neutrophils % 2.0 % 06/15/21 04:30 Lymphocytes % (Manual) 1.0 % (13.4-35.0) L 06/20/21 04:38 Reactive Lymphs % (Man) 1.0 % 06/15/21 04:30 Monocytes % (Manual) 5.0 % (0.0-7.3) 06/20/21 04:38 Nucleated RBC % Not Reportable 06/20/21 04:38 Seg Neutrophils # Technical Publications Writer 06/15/21 04:30 Seg Neutrophils # Man 36.8 K/mm3 (1.8-7.7) H 06/20/21 04:38 Band Neutrophils # 0.0 K/mm3 06/20/21 04:38 Lymphocytes # (Manual) 0.4 K/mm3 (1.2-5.4) L 06/20/21 04:38 Abs React Lymphs (Man) 0.0 K/mm3 06/20/21 04:38 Monocytes # (Manual) 2.0 K/mm3 (0.0-0.8) H 06/20/21 04:38 Eosinophils # (Manual) 0.0 K/mm3 (0.0-0.4) 06/20/21 04:38 Basophils # (Manual) 0.0 K/mm3 (0.0-0.1) 06/20/21 04:38 Metamyelocytes # 0.0 K/mm3 06/20/21 04:38 Myelocytes # 0.0 K/mm3 06/20/21 04:38 Promyelocytes # 0.0 K/mm3 06/20/21 04:38 Blast Cells # 0.0 K/mm3 06/20/21 04:38 WBC Morphology Not Reportable 06/20/21 04:38 Hypersegmented Neuts Not Reportable 06/20/21 04:38 Hyposegmented Neuts Not Reportable 06/20/21 04:38 Hypogranular Neuts Not Reportable 06/20/21 04:38 Smudge Cells Not Reportable 06/20/21 04:38 Toxic Granulation Not Reportable 06/20/21 04:38 Toxic Vacuolation Not Reportable 06/20/21 04:38 Dohle Bodies Not Reportable 06/20/21 04:38 Pelger-Huet Anomaly Not Reportable 06/20/21 04:38 Gui Rods Not Reportable 06/20/21 04:38 Platelet Estimate Consistent w auto 06/20/21 04:38 Clumped Platelets Not Reportable 06/20/21 04:38 Plt Clumps, EDTA Not Reportable 06/20/21 04:38 Large Platelets Not Reportable 06/20/21 04:38 Giant Platelets Not Reportable 06/20/21 04:38 Platelet Satelliting Not Reportable 06/20/21 04:38 Plt Morphology Comment Not Reportable 06/20/21 04:38 RBC Morphology Not Reportable 06/20/21 04:38 Dimorphic RBCs Not Reportable 06/20/21 04:38 Polychromasia Not Reportable 06/20/21 04:38 Hypochromasia 1+ 06/20/21 04:38 Poikilocytosis 1+ 06/20/21 04:38 Anisocytosis 2+ 06/20/21 04:38 Microcytosis Not Reportable 06/20/21 04:38 Macrocytosis Not Reportable 06/20/21 04:38 Spherocytes Not Reportable 06/20/21 04:38 Pappenheimer Bodies Not Reportable 06/20/21 04:38 Sickle Cells Not Reportable 06/20/21 04:38 Target Cells 1+ 06/20/21 04:38 Tear Drop Cells Not Reportable 06/20/21 04:38 Ovalocytes Not Reportable 06/20/21 04:38 Helmet Cells Not Reportable 06/20/21 04:38 [place] Bodies Not Reportable 06/20/21 04:38 [place] Rings Not Reportable 06/20/21 04:38 Anel Cells Not Reportable 06/20/21 04:38 Bite Cells Not Reportable 06/20/21 04:38 Crenated Cell Not Reportable 06/20/21 04:38 Elliptocytes Not Reportable 06/20/21 04:38 Acanthocytes (Spur) Not Reportable 06/20/21 04:38 Rouleaux Not Reportable 06/20/21 04:38 Hemoglobin C Crystals Not Reportable 06/20/21 04:38 Schistocytes Not Reportable 06/20/21 04:38 Malaria parasites Not Reportable 06/20/21 04:38 Narendra Bodies Not Reportable 06/20/21 04:38 Hem Pathologist Commnt No 06/20/21 04:38 PT 16.3 Sec. (12.2-14.9) H 06/18/21 04:00 INR 1.26 (0.87-1.13) H 06/18/21 04:00 APTT 52.6 Sec. (24.2-36.6) H 06/09/21 12:27 Fibrinogen 83 mg/dl (211-480) L* 06/09/21 12:27 ABG pH 7.419 (7.320-7.450) 06/15/21 03:39 POC ABG pCO2 21.2 mmHg (32.0-48.0) L 06/15/21 03:39 ABG pCO2 24.1 mm Hg 06/12/21 04:50 POC ABG pO2 146.6 mmHg (83-108) H 06/15/21 03:39 ABG pO2 127.8 mm Hg (80.0-90.0) H 06/12/21 04:50 POC ABG HCO3 13.4 06/15/21 03:39 ABG HCO3 13.2 mmol/L (20.0-26.0) L 06/12/21 04:50 ABG O2 Saturation 99.0 (0-100) 06/15/21 03:39 ABG O2 Content 12.0 (0.0-44) 06/12/21 04:50 POC ABG Base Excess -9.8 06/15/21 03:39 ABG Base Excess -11.0 mmol/L (-2.0-3.0) L 06/12/21 04:50 ABG Hemoglobin 8.0 (12.0-17.5) L 06/15/21 03:39 ABG Oxyhemoglobin 98.0 (94-98) 06/15/21 03:39 ABG Carboxyhemoglobin 1.4 % (0.0-5.0) 06/12/21 04:50 ABG Methemoglobin 0.3 (0.0-1.5) 06/15/21 03:39 ABG Sodium 145.2 mmol/L (136.0-145.0) H 06/15/21 03:39 ABG Potassium 3.9 mmol/L (3.40-4.50) 06/15/21 03:39 ABG Chloride 120.0 mmol/L (98-107) H 06/15/21 03:39 ABG Glucose 126 mg/dL (65-95) H 06/15/21 03:39 Oxyhemoglobin 96.6 % (95.0-99.0) 06/12/21 04:50 Carboxyhemoglobin 0.7 (0.5-1.5) 06/15/21 03:39 FiO2 30 % 06/12/21 04:50 FiO2 % 30.0 06/15/21 03:39 Sodium 138 mmol/L (137-145) 06/20/21 04:38 Potassium 3.8 mmol/L (3.6-5.0) 06/20/21 04:38 Chloride 98.2 mmol/L (98-107) 06/20/21 04:38 Carbon Dioxide 21 mmol/L (22-30) L 06/20/21 04:38 Anion Gap 23 mmol/L 06/20/21 04:38 BUN 82 mg/dL (7-17) H 06/20/21 04:38 Creatinine 5.8 mg/dL (0.6-1.2) H 06/20/21 04:38 Estimated GFR 9 ml/min 06/20/21 04:38 BUN/Creatinine Ratio 14 % 06/20/21 04:38 Glucose 161 mg/dL (65-100) H 06/20/21 04:38 POC Glucose 120 mg/dL (70-105) H 06/20/21 12:14 Lactic Acid 3.50 mmol/L (0.7-2.0) H* 06/20/21 08:30 Calcium 8.3 mg/dL (8.4-10.2) L 06/20/21 04:38 Phosphorus 4.60 mg/dL (2.5-4.5) H 06/20/21 04:38 Magnesium 2.40 mg/dL (1.7-2.3) H 06/20/21 04:38 Total Bilirubin 4.30 mg/dL (0.1-1.2) H 06/19/21 Unknown AST 181 units/L (5-40) H 06/19/21 Unknown ALT 149 units/L (7-56) H 06/19/21 Unknown Alkaline Phosphatase 379 units/L (35-129) H 06/19/21 Unknown Ammonia 32.0 umol/L (25-60) 06/11/21 14:48 Lactate Dehydrogenase 2208 units/L (91-180) H 06/09/21 11:44 Troponin T < 0.010 ng/mL (0.00-0.029) 06/09/21 03:27 Total Protein 6.6 g/dL (6.3-8.2) 06/19/21 Unknown Albumin 2.4 g/dL (3.9-5) L 06/19/21 Unknown Albumin/Globulin Ratio 0.6 % 06/19/21 Unknown TSH 0.315 mlU/mL (0.270-4.200) 06/11/21 14:48 Arterial Blood Glucose 126 mg/dL (65-95) H 06/15/21 03:39 Arterial Blood Ionized Calcium 3.5 mg/dL (4.6-5.3) L 06/14/21 04:35 Urine Color Yellow (Yellow) 06/10/21 08:47 Urine Turbidity Cloudy (Clear) 06/10/21 08:47 Urine pH 5.0 (5.0-7.0) 06/10/21 08:47 Ur Specific [place] 1.016 (1.003-1.030) 06/10/21 08:47 Urine Protein 100 mg/dl mg/dL (Negative) 06/10/21 08:47 Urine Glucose (UA) 150 mg/dL (Negative) 06/10/21 08:47 Urine Ketones Neg mg/dL (Negative) 06/10/21 08:47 Urine Blood Lg (Negative) 06/10/21 08:47 Urine Nitrite Neg (Negative) 06/10/21 08:47 Urine Bilirubin Neg (Negative) 06/10/21 08:47 Urine Urobilinogen < 2.0 mg/dL (<2.0) 06/10/21 08:47 Ur Leukocyte Esterase Tr (Negative) 06/10/21 08:47 Urine WBC (Auto) 23.0 /HPF (0.0-6.0) H 06/10/21 08:47 Urine RBC (Auto) 67.0 /HPF (0.0-6.0) 06/10/21 08:47 U Epithel Cells (Auto) 5.0 /HPF (0-13.0) 06/10/21 08:47 Urine Bacteria (Auto) 1+ /HPF (Negative) 06/10/21 08:47 Ur Transition Epith Cell 2 /HPF 06/10/21 08:47 Hyaline Casts 1 /LPF 06/10/21 08:47 Urine Mucus Few /HPF 06/10/21 08:47 Urine Creatinine 28.0 mg/dL (0.1-20.0) H 06/13/21 00:16 Urine Sodium 109 mmol/L 06/13/21 00:16 Urine Opiates Screen Negative 06/18/21 11:09 Urine Methadone Screen Negative 06/18/21 11:09 Ur Barbiturates Screen Negative 06/18/21 11:09 Ur Phencyclidine Scrn Negative 06/18/21 11:09 Ur Amphetamines Screen Negative 06/18/21 11:09 U Benzodiazepines Scrn Positive 06/18/21 11:09 Urine Cocaine Screen Negative 06/18/21 11:09 U Marijuana (THC) Screen Positive 06/18/21 11:09 Drugs of Abuse Note Disclamer 06/18/21 11:09 Complement C3 40 mg/dL (83-193) L 06/12/21 20:15 Complement C4 4 mg/dL (15-57) L 06/12/21 20:15 C. difficile Tox (PCR) Negative (Negative) 06/19/21 12:50 Coronavirus (PCR) Negative (Negative) 06/09/21 13:12 Hepatitis A IgM Ab Non-reactive (NonReactive) 06/15/21 09:55 Hep Bs Antigen Nonreactive (Negative) 06/15/21 09:55 Hep B Core IgM Ab Non-reactive (NonReactive) 06/15/21 09:55 Hepatitis C Antibody Non-reactive (NonReactive) 06/15/21 09:55 Blood Type B POSITIVE 06/09/21 04:00 Antibody Screen Negative 06/09/21 04:00 Crossmatch See Detail 06/09/21 04:00 Alfonso/IV: Voiding Method Indwelling Catheter Active Medications - Current Medications Current Medications: Generic Name Dose Route Start Last Admin Trade Name Freq PRN Reason Stop Dose Admin Amlodipine Besylate 10 mg 06/20/21 10:00 06/20/21 09:24 Amlodipine 10 Mg Tab PO 10 mg QDAY GABINO Administration Lipase/Protease/Amylase 1 each 06/14/21 16:23 Lipase 10,500/Protease 25,000/Amylase 43,750 (Units) Cap FEEDTUBE PRN PRN For Clogged Feeding Tube Dextrose 50 ml 06/09/21 11:13 Dextrose 50% In Water (25gm) 50 Ml Syringe IV Q30MIN PRN Hypoglycemia Protocol Heparin Sodium (Porcine) 5,000 unit 06/19/21 14:00 06/20/21 13:23 Heparin 5,000 Unit/1 Ml Vial SUB-Q 5,000 unit Q8HR GABINO Administration Hydrophilic Ointment 1 applic 06/09/21 03:26 06/12/21 20:00 Lip Therapy Vaseline TP 1 applic Q2HR PRN Administration Dry Lips Sodium Chloride 100 mls @ 999 mls/hr 06/17/21 11:14 Nacl 0.9% IV BURKE PRN Hypotension Insulin Human Regular 0 units 06/18/21 12:00 06/20/21 13:05 Insulin Regular, Human 100 Units/1 Ml SUB-Q Not Given Q6H GABINO Protocol Lansoprazole 30 mg 06/19/21 22:00 06/20/21 09:24 Lansoprazole 30 Mg Solutab FEEDTUBE 30 mg BID GABINO Administration Multi-Ingred Cream/Lotion/Oil/Oint 1 applic 06/09/21 03:26 06/12/21 20:05 Mineral Oil/Petrolatum, White Ophth Oint 3.5 Gm OU 1 applic Q4HR PRN Administration Dry Eye(s) Simple Syrup 15 ml 06/14/21 16:23 Simple Syrup 15 Ml FEEDTUBE PRN PRN Hypoglycemia Simple Syrup 30 ml 06/14/21 16:23 Simple Syrup 15 Ml FEEDTUBE PRN PRN Hypoglycemia Sodium Bicarbonate 325 mg 06/14/21 16:23 Sodium Bicarbonate 325 Mg Tab FEEDTUBE PRN PRN For Clogged Feeding Tube Sodium Chloride 10 ml 06/09/21 22:00 06/20/21 09:25 Sodium Chloride 0.9% 10 Ml Flush Syringe IV 10 ml BID GABINO Administration Sodium Chloride 10 ml 06/09/21 11:13 Sodium Chloride 0.9% 10 Ml Flush Syringe IV PRN PRN LINE FLUSH Nutrition/Malnutrition Assess - Dietary Evaluation Nutrition/Malnutrition Findings: Nutrition Notes Start: 06/11/21 15:21 Freq: Status: Active Protocol: Document 06/18/21 11:23 GB (Rec: 06/18/21 11:35 GB [id number]) Nutrition Notes Initial or Follow up Reassessment Current Diagnosis Acute Kidney Injury, Respiratory Failure Other Pertinent Diagnosis metabolic encephalopathy, GI bleed, intubated Current Diet NPO, TF Nepro @ 33ml/hr Labs/Tests 10/4: K 3.5, BUN 79, creainine 6.2, glucose 203, Ca 7.9 Pertinent Medications fentanyl, NaCl Height 5 ft 3 in Weight 57.2 kg [place] Body Weight (kg) 52.27 BMI 22.3 Weight change and time frame No significant changes recorded. Weight is stable. She is 109% IBW. Weight Status Appropriate Subjective/Other Information Per MD notes 06/18: Now on HD, no signs of Renal recovery seen, waiting to speak with family of continual care. Pt stable on current care. Per chart: last BM 06/16 Percent of energy/protein needs met: currently 0% with NPO 06/14: TF Nepro goal rate of 33ml/hr meets 100% or greater of estimated energy needs. 06/18: continues Burn Absent Trauma Absent GI Symptoms Other Food Allergy No Skin Integrity/Comment No reported complications Current % PO Other Minimum of two criteria No #1 Nutrition Diagnosis Inadequate energy intake Comments: 06/13: Intubation continues, NPOx4 days 06/14: TF trial, trickle feeds started. Formula Nepro start rate 10ml/hr (meets 30% or greater estimated energy needs ) 06/18: TF Vital AF 1.2 at goal of 33ml/hr meets 100% or greater of estimated energy needs. Vent continues. Etiology Intubated, GI Bleed As Evidenced by Signs and Symptoms NPO, intubation Diagnosis Progress(for reassessment Continues documentation) Is patient on ventilator? Yes Is Patient Ambulatory and/or Out of Bed No REE-([facility]-confined to bed) 1344.324 Kcal/Kg value to use for calculation 25 Approximate Energy Requirements Using 1430 kcal/Kg Calculation Used for Recommendations Kcal/kg Additional Notes Protein 1-1.2 g/kg @ 57k- 68g Fluids: 1 ml/kcal or per MD Nutrition Intervention Change Diet Order: Continue NPO, if extubated begin Clear liquids (no red colored clears) 06/14: Begin TF: Nepro @ 33ml/ hr: Start rate 10ml/hr advance 5ml/8hr or per tolerance to goal. Flush: 25ml/hr 06/18 continue TF at goal 33ml/ hr as tolerated. Nutrition Support: Nepro @ 33ml/hr: Start rate 10ml/hr advance 5ml/8hr or per tolerance to goal. Flush: 25ml/hr Kcal 1,425 Protein (gm) 64 Fat (gm) 76 Fluid (mL) 575 Goal #1 Extubate and advance diet to clear liquids 06/14: not met, continues 06/18: not met, continues. Now on TF at goal rate 33ml/hr Nepro Goal #2 If intubation continues, begin TPN post central line placement 06/14: changed, okay to start TF trial 06/18: nepro, at goal 33ml/hr tolerating Goal #3 Tolerate TF Nepro at start rate of 10ml/hr 06/18: advanced to goal 33ml/hr , resolved Goal #4 Tolerate TF Nepro at goal rate of 33ml/hr 06/18: met, continues Follow-Up By: 06/21/21 Additional Comments f/u: TF tolerance or extubated and diet advanced clear liquids <JACKSON DA SILVA ELVIA - Last Filed: 06/20/21 16:45> Assessment and Plan Assessment and plan: I agree with the above forementioned note. In person family meeting on 06/21/2021 with neurology. - Patient Problems (1) Cardiac arrest Onset Date: ~06/09/21 Current Visit: Yes Status: Acute (2) GI bleed Onset Date: ~06/09/21 Current Visit: Yes Status: Acute Qualifiers: GI bleed type/associated pathology: unspecified gastrointestinal hemorrhage type Qualified Code(s): K92.2 - Gastrointestinal hemorrhage, unspecified (3) Hypotension Onset Date: ~06/09/21 Current Visit: Yes Status: Acute Qualifiers: Hypotension type: unspecified hypotension type Qualified Code(s): I95.9 - Hypotension, unspecified (4) Lactic acidosis Onset Date: ~06/09/21 Current Visit: Yes Status: Acute Hospitalist Physical - Constitutional Vitals: Temp Pulse Resp BP Pulse Ox 99.0 F 105 H 34 H 91/55 88 06/20/21 16:00 06/20/21 16:00 06/20/21 16:00 06/20/21 16:00 06/20/21 16:00 HEART Score - HEART Score Troponin: Troponin T < 0.010 ng/mL (0.00-0.029) 06/09/21 03:27 Results - Labs CBC & Chem 7: 06/20/21 04:38 06/20/21 04:38 Labs: Laboratory Last Values WBC 39.2 K/mm3 (4.5-11.0) H 06/20/21 04:38 RBC 3.62 M/mm3 (3.65-5.03) L 06/20/21 04:38 Hgb 9.0 gm/dl (10.1-14.3) L 06/20/21 04:38 Hct 27.8 % (30.3-42.9) L 06/20/21 04:38 MCV 77 fl (79-97) L 06/20/21 04:38 MCH 25 pg (28-32) L 06/20/21 04:38 MCHC 32 % (30-34) 06/20/21 04:38 RDW 23.3 % (13.2-15.2) H 06/20/21 04:38 Plt Count 119 K/mm3 (140-440) L 06/20/21 04:38 Lymph % (Auto) 5.4 % (13.4-35.0) L 06/12/21 04:03 [place] % (Auto) Technical Publications Writer 06/15/21 04:30 Eos % (Auto) Technical Publications Writer 06/15/21 04:30 Baso % (Auto) 0.1 % (0.0-1.8) 06/12/21 04:03 Lymph # (Auto) 0.8 K/mm3 (1.2-5.4) L 06/12/21 04:03 [place] # (Auto) Technical Publications Writer 06/15/21 04:30 Eos # (Auto) Technical Publications Writer 06/15/21 04:30 Baso # (Auto) Technical Publications Writer 06/15/21 04:30 Add Manual Diff Complete 06/20/21 04:38 Total Counted 100 06/20/21 04:38 Seg Neutrophils % Technical Publications Writer 06/20/21 04:38 Seg Neuts % (Manual) 94.0 % (40.0-70.0) H 06/20/21 04:38 Band Neutrophils % 2.0 % 06/15/21 04:30 Lymphocytes % (Manual) 1.0 % (13.4-35.0) L 06/20/21 04:38 Reactive Lymphs % (Man) 1.0 % 06/15/21 04:30 Monocytes % (Manual) 5.0 % (0.0-7.3) 06/20/21 04:38 Nucleated RBC % Not Reportable 06/20/21 04:38 Seg Neutrophils # Technical Publications Writer 06/15/21 04:30 Seg Neutrophils # Man 36.8 K/mm3 (1.8-7.7) H 06/20/21 04:38 Band Neutrophils # 0.0 K/mm3 06/20/21 04:38 Lymphocytes # (Manual) 0.4 K/mm3 (1.2-5.4) L 06/20/21 04:38 Abs React Lymphs (Man) 0.0 K/mm3 06/20/21 04:38 Monocytes # (Manual) 2.0 K/mm3 (0.0-0.8) H 06/20/21 04:38 Eosinophils # (Manual) 0.0 K/mm3 (0.0-0.4) 06/20/21 04:38 Basophils # (Manual) 0.0 K/mm3 (0.0-0.1) 06/20/21 04:38 Metamyelocytes # 0.0 K/mm3 06/20/21 04:38 Myelocytes # 0.0 K/mm3 06/20/21 04:38 Promyelocytes # 0.0 K/mm3 06/20/21 04:38 Blast Cells # 0.0 K/mm3 06/20/21 04:38 WBC Morphology Not Reportable 06/20/21 04:38 Hypersegmented Neuts Not Reportable 06/20/21 04:38 Hyposegmented Neuts Not Reportable 06/20/21 04:38 Hypogranular Neuts Not Reportable 06/20/21 04:38 Smudge Cells Not Reportable 06/20/21 04:38 Toxic Granulation Not Reportable 06/20/21 04:38 Toxic Vacuolation Not Reportable 06/20/21 04:38 Dohle Bodies Not Reportable 06/20/21 04:38 Pelger-Huet Anomaly Not Reportable 06/20/21 04:38 Gui Rods Not Reportable 06/20/21 04:38 Platelet Estimate Consistent w auto 06/20/21 04:38 Clumped Platelets Not Reportable 06/20/21 04:38 Plt Clumps, EDTA Not Reportable 06/20/21 04:38 Large Platelets Not Reportable 06/20/21 04:38 Giant Platelets Not Reportable 06/20/21 04:38 Platelet Satelliting Not Reportable 06/20/21 04:38 Plt Morphology Comment Not Reportable 06/20/21 04:38 RBC Morphology Not Reportable 06/20/21 04:38 Dimorphic RBCs Not Reportable 06/20/21 04:38 Polychromasia Not Reportable 06/20/21 04:38 Hypochromasia 1+ 06/20/21 04:38 Poikilocytosis 1+ 06/20/21 04:38 Anisocytosis 2+ 06/20/21 04:38 Microcytosis Not Reportable 06/20/21 04:38 Macrocytosis Not Reportable 06/20/21 04:38 Spherocytes Not Reportable 06/20/21 04:38 Pappenheimer Bodies Not Reportable 06/20/21 04:38 Sickle Cells Not Reportable 06/20/21 04:38 Target Cells 1+ 06/20/21 04:38 Tear Drop Cells Not Reportable 06/20/21 04:38 Ovalocytes Not Reportable 06/20/21 04:38 Helmet Cells Not Reportable 06/20/21 04:38 [place] Bodies Not Reportable 06/20/21 04:38 [place] Rings Not Reportable 06/20/21 04:38 [place] Cells Not Reportable 06/20/21 04:38 Bite Cells Not Reportable 06/20/21 04:38 Crenated Cell Not Reportable 06/20/21 04:38 Elliptocytes Not Reportable 06/20/21 04:38 Acanthocytes (Spur) Not Reportable 06/20/21 04:38 Rouleaux Not Reportable 06/20/21 04:38 Hemoglobin C Crystals Not Reportable 06/20/21 04:38 Schistocytes Not Reportable 06/20/21 04:38 Malaria parasites Not Reportable 06/20/21 04:38 Narendra Bodies Not Reportable 06/20/21 04:38 Hem Pathologist Commnt No 06/20/21 04:38 PT 16.3 Sec. (12.2-14.9) H 06/18/21 04:00 INR 1.26 (0.87-1.13) H 06/18/21 04:00 APTT 52.6 Sec. (24.2-36.6) H 06/09/21 12:27 Fibrinogen 83 mg/dl (211-480) L* 06/09/21 12:27 ABG pH 7.419 (7.320-7.450) 06/15/21 03:39 POC ABG pCO2 21.2 mmHg (32.0-48.0) L 06/15/21 03:39 ABG pCO2 24.1 mm Hg 06/12/21 04:50 POC ABG pO2 146.6 mmHg (83-108) H 06/15/21 03:39 ABG pO2 127.8 mm Hg (80.0-90.0) H 06/12/21 04:50 POC ABG HCO3 13.4 06/15/21 03:39 ABG HCO3 13.2 mmol/L (20.0-26.0) L 06/12/21 04:50 ABG O2 Saturation 99.0 (0-100) 06/15/21 03:39 ABG O2 Content 12.0 (0.0-44) 06/12/21 04:50 POC ABG Base Excess -9.8 06/15/21 03:39 ABG Base Excess -11.0 mmol/L (-2.0-3.0) L 06/12/21 04:50 ABG Hemoglobin 8.0 (12.0-17.5) L 06/15/21 03:39 ABG Oxyhemoglobin 98.0 (94-98) 06/15/21 03:39 ABG Carboxyhemoglobin 1.4 % (0.0-5.0) 06/12/21 04:50 ABG Methemoglobin 0.3 (0.0-1.5) 06/15/21 03:39 ABG Sodium 145.2 mmol/L (136.0-145.0) H 06/15/21 03:39 ABG Potassium 3.9 mmol/L (3.40-4.50) 06/15/21 03:39 ABG Chloride 120.0 mmol/L (98-107) H 06/15/21 03:39 ABG Glucose 126 mg/dL (65-95) H 06/15/21 03:39 Oxyhemoglobin 96.6 % (95.0-99.0) 06/12/21 04:50 Carboxyhemoglobin 0.7 (0.5-1.5) 06/15/21 03:39 FiO2 30 % 06/12/21 04:50 FiO2 % 30.0 06/15/21 03:39 Sodium 138 mmol/L (137-145) 06/20/21 04:38 Potassium 3.8 mmol/L (3.6-5.0) 06/20/21 04:38 Chloride 98.2 mmol/L (98-107) 06/20/21 04:38 Carbon Dioxide 21 mmol/L (22-30) L 06/20/21 04:38 Anion Gap 23 mmol/L 06/20/21 04:38 BUN 82 mg/dL (7-17) H 06/20/21 04:38 Creatinine 5.8 mg/dL (0.6-1.2) H 06/20/21 04:38 Estimated GFR 9 ml/min 06/20/21 04:38 BUN/Creatinine Ratio 14 % 06/20/21 04:38 Glucose 161 mg/dL (65-100) H 06/20/21 04:38 POC Glucose 120 mg/dL (70-105) H 06/20/21 12:14 Lactic Acid 3.50 mmol/L (0.7-2.0) H* 06/20/21 08:30 Calcium 8.3 mg/dL (8.4-10.2) L 06/20/21 04:38 Phosphorus 4.60 mg/dL (2.5-4.5) H 06/20/21 04:38 Magnesium 2.40 mg/dL (1.7-2.3) H 06/20/21 04:38 Total Bilirubin 4.30 mg/dL (0.1-1.2) H 06/19/21 Unknown AST 181 units/L (5-40) H 06/19/21 Unknown ALT 149 units/L (7-56) H 06/19/21 Unknown Alkaline Phosphatase 379 units/L (35-129) H 06/19/21 Unknown Ammonia 32.0 umol/L (25-60) 06/11/21 14:48 Lactate Dehydrogenase 2208 units/L (91-180) H 06/09/21 11:44 Troponin T < 0.010 ng/mL (0.00-0.029) 06/09/21 03:27 Total Protein 6.6 g/dL (6.3-8.2) 06/19/21 Unknown Albumin 2.4 g/dL (3.9-5) L 06/19/21 Unknown Albumin/Globulin Ratio 0.6 % 06/19/21 Unknown TSH 0.315 mlU/mL (0.270-4.200) 06/11/21 14:48 Arterial Blood Glucose 126 mg/dL (65-95) H 06/15/21 03:39 Arterial Blood Ionized Calcium 3.5 mg/dL (4.6-5.3) L 06/14/21 04:35 Urine Color Yellow (Yellow) 06/10/21 08:47 Urine Turbidity Cloudy (Clear) 06/10/21 08:47 Urine pH 5.0 (5.0-7.0) 06/10/21 08:47 Ur Specific [place] 1.016 (1.003-1.030) 06/10/21 08:47 Urine Protein 100 mg/dl mg/dL (Negative) 06/10/21 08:47 Urine Glucose (UA) 150 mg/dL (Negative) 06/10/21 08:47 Urine Ketones Neg mg/dL (Negative) 06/10/21 08:47 Urine Blood Lg (Negative) 06/10/21 08:47 Urine Nitrite Neg (Negative) 06/10/21 08:47 Urine Bilirubin Neg (Negative) 06/10/21 08:47 Urine Urobilinogen < 2.0 mg/dL (<2.0) 06/10/21 08:47 Ur Leukocyte Esterase Tr (Negative) 06/10/21 08:47 Urine WBC (Auto) 23.0 /HPF (0.0-6.0) H 06/10/21 08:47 Urine RBC (Auto) 67.0 /HPF (0.0-6.0) 06/10/21 08:47 U Epithel Cells (Auto) 5.0 /HPF (0-13.0) 06/10/21 08:47 Urine Bacteria (Auto) 1+ /HPF (Negative) 06/10/21 08:47 Ur Transition Epith Cell 2 /HPF 06/10/21 08:47 Hyaline Casts 1 /LPF 06/10/21 08:47 Urine Mucus Few /HPF 06/10/21 08:47 Urine Creatinine 28.0 mg/dL (0.1-20.0) H 06/13/21 00:16 Urine Sodium 109 mmol/L 06/13/21 00:16 Urine Opiates Screen Negative 06/18/21 11:09 Urine Methadone Screen Negative 06/18/21 11:09 Ur Barbiturates Screen Negative 06/18/21 11:09 Ur Phencyclidine Scrn Negative 06/18/21 11:09 Ur Amphetamines Screen Negative 06/18/21 11:09 U Benzodiazepines Scrn Positive 06/18/21 11:09 Urine Cocaine Screen Negative 06/18/21 11:09 U Marijuana (THC) Screen Positive 06/18/21 11:09 Drugs of Abuse Note Disclamer 06/18/21 11:09 Complement C3 40 mg/dL (83-193) L 06/12/21 20:15 Complement C4 4 mg/dL (15-57) L 06/12/21 20:15 C. difficile Tox (PCR) Negative (Negative) 06/19/21 12:50 Coronavirus (PCR) Negative (Negative) 06/09/21 13:12 Hepatitis A IgM Ab Non-reactive (NonReactive) 06/15/21 09:55 Hep Bs Antigen Nonreactive (Negative) 06/15/21 09:55 Hep B Core IgM Ab Non-reactive (NonReactive) 06/15/21 09:55 Hepatitis C Antibody Non-reactive (NonReactive) 06/15/21 09:55 Blood Type B POSITIVE 06/09/21 04:00 Antibody Screen Negative 06/09/21 04:00 Crossmatch See Detail 06/09/21 04:00 Alfonso/IV: Voiding Method Indwelling Catheter Active Medications - Current Medications Current Medications: Generic Name Dose Route Start Last Admin Trade Name Freq PRN Reason Stop Dose Admin Amlodipine Besylate 10 mg 06/20/21 10:00 06/20/21 09:24 Amlodipine 10 Mg Tab PO 10 mg QDAY GABINO Administration Lipase/Protease/Amylase 1 each 06/14/21 16:23 Lipase 10,500/Protease 25,000/Amylase 43,750 (Units) Cap FEEDTUBE PRN PRN For Clogged Feeding Tube Dextrose 50 ml 06/09/21 11:13 Dextrose 50% In Water (25gm) 50 Ml Syringe IV Q30MIN PRN Hypoglycemia Protocol Heparin Sodium (Porcine) 5,000 unit 06/19/21 14:00 06/20/21 13:23 Heparin 5,000 Unit/1 Ml Vial SUB-Q 5,000 unit Q8HR GABINO Administration Hydrophilic Ointment 1 applic 06/09/21 03:26 06/12/21 20:00 Lip Therapy Vaseline TP 1 applic Q2HR PRN Administration Dry Lips Sodium Chloride 100 mls @ 999 mls/hr 06/17/21 11:14 Nacl 0.9% IV BURKE PRN Hypotension Insulin Human Regular 0 units 06/18/21 12:00 06/20/21 13:05 Insulin Regular, Human 100 Units/1 Ml SUB-Q Not Given Q6H GABINO Protocol Lansoprazole 30 mg 06/19/21 22:00 06/20/21 09:24 Lansoprazole 30 Mg Solutab FEEDTUBE 30 mg BID GABINO Administration Multi-Ingred Cream/Lotion/Oil/Oint 1 applic 06/09/21 03:26 06/12/21 20:05 Mineral Oil/Petrolatum, White Ophth Oint 3.5 Gm OU 1 applic Q4HR PRN Administration Dry Eye(s) Simple Syrup 15 ml 06/14/21 16:23 Simple Syrup 15 Ml FEEDTUBE PRN PRN Hypoglycemia Simple Syrup 30 ml 06/14/21 16:23 Simple Syrup 15 Ml FEEDTUBE PRN PRN Hypoglycemia Sodium Bicarbonate 325 mg 06/14/21 16:23 Sodium Bicarbonate 325 Mg Tab FEEDTUBE PRN PRN For Clogged Feeding Tube Sodium Chloride 10 ml 06/09/21 22:00 06/20/21 09:25 Sodium Chloride 0.9% 10 Ml Flush Syringe IV 10 ml BID GABINO Administration Sodium Chloride 10 ml 06/09/21 11:13 Sodium Chloride 0.9% 10 Ml Flush Syringe IV PRN PRN LINE FLUSH Nutrition/Malnutrition Assess - Dietary Evaluation Nutrition/Malnutrition Findings: Nutrition Notes Start: 06/11/21 15:21 Freq: Status: Active Protocol: Document 06/18/21 11:23 GB (Rec: 06/18/21 11:35 GB [id number]) Nutrition Notes Initial or Follow up Reassessment Current Diagnosis Acute Kidney Injury, Respiratory Failure Other Pertinent Diagnosis metabolic encephalopathy, GI bleed, intubated Current Diet NPO, TF Nepro @ 33ml/hr Labs/Tests 06/18: K 3.5, BUN 79, creainine 6.2, glucose 203, Ca 7.9 Pertinent Medications fentanyl, NaCl Height 5 ft 3 in Weight 57.2 kg [place] Body Weight (kg) 52.27 BMI 22.3 Weight change and time frame No significant changes recorded. Weight is stable. She is 109% IBW. Weight Status Appropriate Subjective/Other Information Per MD notes 06/18: Now on HD, no signs of Renal recovery seen, waiting to speak with family of continual care. Pt stable on current care. Per chart: last BM 06/16 Percent of energy/protein needs met: currently 0% with NPO 06/14: TF Nepro goal rate of 33ml/hr meets 100% or greater of estimated energy needs. 06/18: continues Burn Absent Trauma Absent GI Symptoms Other Food Allergy No Skin Integrity/Comment No reported complications Current % PO Other Minimum of two criteria No #1 Nutrition Diagnosis Inadequate energy intake Comments: 06/13: Intubation continues, NPOx4 days 06/14: TF trial, trickle feeds started. Formula Nepro start rate 10ml/hr (meets 30% or greater estimated energy needs ) 06/18: TF Vital AF 1.2 at goal of 33ml/hr meets 100% or greater of estimated energy needs. Vent continues. Etiology Intubated, GI Bleed As Evidenced by Signs and Symptoms NPO, intubation Diagnosis Progress(for reassessment Continues documentation) Is patient on ventilator? Yes Is Patient Ambulatory and/or Out of Bed No REE-([facility]-confined to bed) 1344.324 Kcal/Kg value to use for calculation 25 Approximate Energy Requirements Using 1430 kcal/Kg Calculation Used for Recommendations Kcal/kg Additional Notes Protein 1-1.2 g/kg @ 57k- 68g Fluids: 1 ml/kcal or per MD Nutrition Intervention Change Diet Order: Continue NPO, if extubated begin Clear liquids (no red colored clears) 06/14: Begin TF: Nepro @ 33ml/ hr: Start rate 10ml/hr advance 5ml/8hr or per tolerance to goal. Flush: 25ml/hr 06/18 continue TF at goal 33ml/ hr as tolerated. Nutrition Support: Nepro @ 33ml/hr: Start rate 10ml/hr advance 5ml/8hr or per tolerance to goal. Flush: 25ml/hr Kcal 1,425 Protein (gm) 64 Fat (gm) 76 Fluid (mL) 575 Goal #1 Extubate and advance diet to clear liquids 06/14: not met, continues 06/18: not met, continues. Now on TF at goal rate 33ml/hr Nepro Goal #2 If intubation continues, begin TPN post central line placement 06/14: changed, okay to start TF trial 06/18: nepro, at goal 33ml/hr tolerating Goal #3 Tolerate TF Nepro at start rate of 10ml/hr 06/18: advanced to goal 33ml/hr , resolved Goal #4 Tolerate TF Nepro at goal rate of 33ml/hr 06/18: met, continues Follow-Up By: 06/21/21 Additional Comments f/u: TF tolerance or extubated and diet advanced clear liquids - Attestation Statement I have reviewed and agreed w/ Malnutrition eval & tx plan: Yes
[2021-06-20] MEDS: NORepinephrine/NS 4 MG-250 ML 4 MG/250 ML BAG IV ONE ×2 (18:25→19:30)
[2021-06-20 19:42] LABS: Myeloperoxidase Antibody <1.0 AI (<1.0)
[2021-06-20] MEDS ORDERED: FUROSEMIDE 40 MG/4 ML INJ ONE (20:51)
[2021-06-20] MEDS: NORepinephrine/NS 4 MG-250 ML 4 MG/250 ML BAG IV SCH (21:39)
[2021-06-20] MEDS: DEXTROSE 50% IN WATER (25GM) 50 ML SYRINGE IV PRN (23:09)
[2021-06-21] MEDS: INSULIN REGULAR, HUMAN 100 UNITS/1 ML SUB-Q SCH
[2021-06-21] MEDS ORDERED: SODIUM CHLORIDE 0.9% 1000 ML 1,000 ML IV ONE (00:24)
[2021-06-21] MEDS ORDERED: VASOPRESSIN 20 UNIT in SODIUM CHLORIDE 0.9% 100 ML IV SCH (01:00)
[2021-06-21] MEDS: NORepinephrine/NS 4 MG-250 ML 4 MG/250 ML BAG IV SCH (01:37)
[2021-06-21] MEDS ORDERED: PHENYLEPHRINE 10 MG/1 ML INJ SDV IV SCH (02:00)
[2021-06-21] MEDS ORDERED: PHENYLEPHRINE 100 MG in SODIUM CHLORIDE 0.9% 90 ML IV SCH (02:00)
[2021-06-21] MEDS: DEXTROSE 50% IN WATER (25GM) 50 ML SYRINGE IV PRN ×2 (02:08→02:12)
[2021-06-21] MEDS ORDERED: NORepinephrine/NS 8 MG-250 ML 8 MG/250 ML INFUS..BTL IV SCH (03:00)
[2021-06-21] MEDS ORDERED: DEXTROSE 5% IN WATER 1,000 ML with SODIUM BICARBONATE 150 MEQ IV SCH (04:26)
[2021-06-21] MEDS ORDERED: SODIUM BICARB 8.4% 50 MEQ/50 ML SYRINGE IV ONE (04:44)
[2021-06-21] MEDS ORDERED: SODIUM BICARBONATE 150 MEQ in DEXTROSE 5% IN WATER 1,000 ML IV SCH (05:00)
[2021-06-21 06:35] VITALS: BP 61/34
--- NOTE | 2021-06-21 06:52 | Death Note ---
Note Date of : 06/21/21 Time of : 06:41 Time Pronounced: 06:41 - Preliminary Cause of (problem) (1) Cardiac arrest Preliminary cause of (2) GI bleed Qualifiers: GI bleed type/associated pathology: unspecified gastrointestinal hemorrhage type Qualified Code(s): K92.2 - Gastrointestinal hemorrhage, unspecified Preliminary cause of (3) Hypotension Qualifiers: Hypotension type: unspecified hypotension type Qualified Code(s): I95.9 - Hypotension, unspecified Preliminary cause of (4) Lactic acidosis Preliminary cause of
--- NOTE | 2021-06-21 09:02 | Death Summary ---
<RUSS AWAN - Last Filed: 06/21/21 08:48> Summary - Providers Consults: 06/09/21 12:56 Consult to Physician [CONS] Urgent Comment: Consulting Provider: MICKI VO Physician Instructions: Reason For Exam: PEA arrest on vent/UGIB 06/10/21 06:41 Consult to Physician [CONS] Urgent Comment: Consulting Provider: MARCELLUS ROSENTHAL Physician Instructions: Reason For Exam: Acute UGIB 06/11/21 13:25 Consult to Physician [CONS] Routine Comment: Consulting Provider: ANIYA POOLE Physician Instructions: Reason For Exam: Acute renal failure 06/11/21 13:26 Consult to Physician [CONS] Routine Comment: Consulting Provider: MATILDE SHIELDS Physician Instructions: Reason For Exam: Neurological status after cardiac arrest 06/11/21 13:28 Consult to Dietitian/Nutrition [CONS] Routine Physician Instructions: Reason For Exam: Reason for Consult: Dietary needs in ICU 06/15/21 09:47 Consult to Dietitian/Nutrition [CONS] Routine Physician Instructions: TF can be advance to patient nutritional need Reason For Exam: Assess nutrtn needs, initiate, modify, manage TF Reason for Consult: Write/Manage Tube Feeding Reason for Consult: Write/Manage Tube Feeding 06/16/21 10:01 Consult to Wound/ET Nurse [CONS] Routine Reason For Exam: sacral ulcer and inner thigh blisters. Attending: JACKSON DA SILVA MD - summary Date of admission: 06/09/21 12:26 Date of : 06/21/21 Significant findings: This is a 60-year-old female with unknown medical history who was found down and unconscious by EMS on 06/09 who initiated CPR in transit and achieved ROSC. Upon arrival to the emergency department patient had hemoglobin of 3 and gastric lavage revealed coffee-ground emesis which later progressed to dark red blood. Patient was intubated in the emergency department and was found to be hypoglycemic which was treated with dextrose. Patient was also hypotensive and received 500 mL bolus, 3 units of PRBC and Levophed was initiated and titrated up to 20. Patient was admitted to the hospital service s/p cardiac arrest, acute hypoxic respiratory failure, severe anemia 2/2 to upper GI bleed with consults to cardiology, nephrology, gastroenterology and CCM. Patient was not able to be transferred to another facility for higher level of care. Patient underwent a EGD with clipping on 06/10 and on 06/11 vasopressors and antibiotics discontinued. On 06/12 nephrology was consulted due to worsening renal function. Patient was started on HD after she failed to respond to high dose steroids. She was started on antihypertensives for hypertension. Patient had diarrhea and cdiff was negative. MRI brain suggested diffuse edema and findings consistent with anoxic brain injury and EEG showed diffuse slowing. A family conference was scheduled today. This morning patient was given bicarb for acidosis on ABG and eventually the family decided to change the code status to DNR. Patient and family was at bedside. Dr. Da Silva pronounced time of . Family requested an autopsy however patient was ruled out for an autopsy by GBI. Hypoxic anoxic encephalopathy ? Nonconvulsive seizure s/p cardiac arrest HTN Acute hypoxic respiratory failure Upper GI bleed Transminitis Acute kidney injury likely 2/2 to acute tubular necrosis or possible underlying glomerulonephritis requiring hemodialysis Anion gap metabolic acidosis Hyperglycemia Leukocytosis s/p lactic acidosis Hemorrhagic shock secondary to upper GI bleed Acute blood loss anemia Coagulopathy - Final diagnosis (1) Acute kidney failure Note: Final diagnosis: (2) Acute respiratory failure Note: Final diagnosis: (3) Cardiac arrest Note: Final diagnosis: (4) GI bleed Qualifiers: GI bleed type/associated pathology: unspecified gastrointestinal hemorrhage type Qualified Code(s): K92.2 - Gastrointestinal hemorrhage, unspecified Note: Final diagnosis: (5) Hyperglycemia Note: Final diagnosis: (6) Lactic acidosis Note: Final diagnosis: (7) Anoxic brain injury Note: Final diagnosis: <JACKSON DA SILVA ELVIA - Last Filed: 06/21/21 12:34> Summary - Providers Date of service: 06/21/21 Consults: 06/09/21 12:56 Consult to Physician [CONS] Urgent Comment: Consulting Provider: MICKI VO Physician Instructions: Reason For Exam: PEA arrest on vent/UGIB 06/10/21 06:41 Consult to Physician [CONS] Urgent Comment: Consulting Provider: MARCELLUS ROSENTHAL Physician Instructions: Reason For Exam: Acute UGIB 06/11/21 13:25 Consult to Physician [CONS] Routine Comment: Consulting Provider: ANIYA POOLE Physician Instructions: Reason For Exam: Acute renal failure 06/11/21 13:26 Consult to Physician [CONS] Routine Comment: Consulting Provider: MATILDE SHIELDS Physician Instructions: Reason For Exam: Neurological status after cardiac arrest 06/11/21 13:28 Consult to Dietitian/Nutrition [CONS] Routine Physician Instructions: Reason For Exam: Reason for Consult: Dietary needs in ICU 06/15/21 09:47 Consult to Dietitian/Nutrition [CONS] Routine Physician Instructions: TF can be advance to patient nutritional need Reason For Exam: Assess nutrtn needs, initiate, modify, manage TF Reason for Consult: Write/Manage Tube Feeding Reason for Consult: Write/Manage Tube Feeding 06/16/21 10:01 Consult to Wound/ET Nurse [CONS] Routine Reason For Exam: sacral ulcer and inner thigh blisters. Attending: JACKSON DA SILVA MD - summary Date of admission: 06/09/21 12:26 Reason for admission: PEA arrest Significant findings: I agree with the after mentioned note listed above. The high probability of a clinically significant, sudden or life threatening deterioration of the [neuro,resp,GI,ID, renal] system(s) required my full and direct attention, intervention and personal management. The aggregate critical care time was [60] minutes. This time is in addition to time spent performing reported procedures but includes the following: [x] Data Review and interpretation [x] Patient assessment and monitoring of vital signs [x] Documentation [x] Medication orders and management Procedures/treatments rendered: Intubation with mechanical ventilation; central line placement; arterial line placement; Erasto placement Pertinent studies: Reviewed. Disposition: . - Final diagnosis (1) Cardiac arrest Note: Final diagnosis: (2) GI bleed Qualifiers: GI bleed type/associated pathology: unspecified gastrointestinal hemorrhage type Qualified Code(s): K92.2 - Gastrointestinal hemorrhage, unspecified Note: Final diagnosis: (3) Hypotension Qualifiers: Hypotension type: unspecified hypotension type Qualified Code(s): I95.9 - Hypotension, unspecified Note: Final diagnosis: (4) Lactic acidosis Note: Final diagnosis:
== END 2021-06-21 06:45 | DRG 207 ==
LOC: ED 03:02 → CC1 12:26
PROVIDERS: ADMIT Student in an Organized Health Care Education/Training Program; ATTEND Student in an Organized Health Care Education/Training Program
PROC: 5A1955Z Respiratory Ventilation, Greater than 96 Consecutive Hours (ICD-10-PCS; 2021-06-09)
PROC: 0BH17EZ Insertion of Endotracheal Airway into Trachea, Via Natural or Artificial Opening (ICD-10-PCS; 2021-06-09)
PROC: 30233N1 Transfusion of Nonautologous Red Blood Cells into Peripheral Vein, Percutaneous Approach (ICD-10-PCS; 2021-06-09)
PROC: 30233M1 Transfusion of Nonautologous Plasma Cryoprecipitate into Peripheral Vein, Percutaneous Approach (ICD-10-PCS; 2021-06-09)
PROC: 4A033R1 Measurement of Arterial Saturation, Peripheral, Percutaneous Approach (ICD-10-PCS; 2021-06-09)
PROC: 30233K1 Transfusion of Nonautologous Frozen Plasma into Peripheral Vein, Percutaneous Approach (ICD-10-PCS; principal; 2021-06-10)
PROC: 02HV33Z Insertion of Infusion Device into Superior Vena Cava, Percutaneous Approach (ICD-10-PCS; 2021-06-10)
PROC: B548ZZA Ultrasonography of Superior Vena Cava, Guidance (ICD-10-PCS; 2021-06-10)
PROC: 0W3P8ZZ Control Bleeding in Gastrointestinal Tract, Via Natural or Artificial Opening Endoscopic (ICD-10-PCS; 2021-06-10)
PROC: 06HY33Z Insertion of Infusion Device into Lower Vein, Percutaneous Approach (ICD-10-PCS; 2021-06-14)
PROC: 5A1D70Z Performance of Urinary Filtration, Intermittent, Less than 6 Hours Per Day (ICD-10-PCS; 2021-06-15)
PROC: 5A1D70Z Performance of Urinary Filtration, Intermittent, Less than 6 Hours Per Day (ICD-10-PCS; 2021-06-16)
PROC: 5A1D70Z Performance of Urinary Filtration, Intermittent, Less than 6 Hours Per Day (ICD-10-PCS; 2021-06-18)
PROC: 5A1D70Z Performance of Urinary Filtration, Intermittent, Less than 6 Hours Per Day (ICD-10-PCS; 2021-06-20)
DX: J96.01 Acute respiratory failure with hypoxia (principal); G93.41 Metabolic encephalopathy; N17.0 Acute kidney failure with tubular necrosis; K92.2 Gastrointestinal hemorrhage, unspecified; E87.2 Acidosis; D62 Acute posthemorrhagic anemia; D68.9 Coagulation defect, unspecified; G93.1 Anoxic brain damage, not elsewhere classified; R57.8 Other shock; I46.9 Cardiac arrest, cause unspecified; F17.200 Nicotine dependence, unspecified, uncomplicated; R56.9 Unspecified convulsions; Z20.822 Contact with and (suspected) exposure to COVID-19
CPT/HCPCS: 31500; 36415; 36600; 70450; 70551; 70553; 71045; 74018; 74177; 76770; 80048; 80053; 80074; 80307; 81001; 82140; 82310; 82570; 82803; 82805; 82962; 83520; 83615; 83735; 84100; 84132; 84300; 84443; 84484; 85007; 85014; 85018; 85025; 85027; 85384; 85610; 85730; 86021; 86160; 86850; 86900; 86901; 86920; 86965; 87040; 87070; 87086; 87205; 87493; 93005; 94002; 94003; 95819; 99292; G0378; A9575; C9113; J0171; J0461; J0610; J0692; J1170; J1644; J1815; J1940; J2250; J2354; J2370; J2930; J3010; J3370; J3475; J7030; J7040; J7050; J7120; P9012; P9016; P9017; Q9967; U0003